=== PATIENT | male | born 1945 | race Caucasian/White ===

== ENCOUNTER 2019-12-12 19:57 | Emergency (ER) | payer MEDICARE, BC, SELFPAY ==
--- NOTE | ~2019-12-12 | CT_ITS ---
EXAMINATION: CT brain wo con DATE: 12/12/2019 20:30 INDICATION: Slurred speech. TIA. TECHNIQUE: Computed tomography (CT) of the head was performed without intravenous contrast. The dose- length product was 681.00 mGy-cm. The mA was adjusted according to patient size. Iterative reconstruc tion technique was employed. COMPARISON: CT dated 01/12/2019 FINDINGS: Stable large CSF density extra-axial fluid collection involving the left frontal, parietal and temporal locations with mass effect. There is unchanged midline shift to the right measuring appr oximately 15 mm. There is a large chronic right lacunar infarction. Basilar cisterns are patent. Para nasal sinuses and mastoids are pneumatized. Mild mucosal thickening of the ethmoid sinuses. No depres sed skull fractures. No acute intracranial hemorrhage, infarction, mass or mass effect. There are sca ttered mild periventricular and subcortical white matter changes, most likely related to small vessel ischemic disease (microangiopathy). IMPRESSION: 1. Stable large left hemispheric CSF density fluid collection, compatible with arachnoid cyst. There is associated mass effect with unchanged midline shift to the right measuring 15 mm. 2: Stable large chronic right lacunar infarction. Reviewed, dictated and finalized at location A.
[2019-12-12 19:57] VITALS: BP 152/85; PULSE 87; RESP 22; TEMP 37.2; O2SAT 96
--- NOTE | 2019-12-12 20:03 | ED.GENADULT ---
HPI - General Adult General Chief complaint: Unspecified Stated complaint: slurred words Source: patient, family and EMS History of Present Illness HPI narrative: 74-year-old male presents via EMS for slurred speech. Per EMS, patient had an episode of slurred speech for a few minutes. He does have a history of stroke in the past, and TIA. states patient was talking to him, and he was having difficulty finding his words and having some slurred speech prior to arrival. At this time, patient is asymptomatic. No chest pain or shortness of breath. No abdominal pain. No nausea or vomiting. Related Data Home Medications Medication Instructions Recorded Confirmed Centrum Silver Men 12/12/19 acetaminophen 325 mg PO ONCE PRN 12/12/19 amlodipine 12/12/19 12/12/19 atorvastatin 12/12/19 clopidogrel 12/12/19 empagliflozin [Jardiance] mg 12/12/19 finasteride mg 12/12/19 hydrocortisone TOPICAL 12/12/19 levetiracetam PO 12/12/19 mirabegron [Myrbetriq] mg PO 12/12/19 solifenacin mg PO 12/12/19 triamcinolone acetonide TOPICAL 12/12/19 Allergies Allergy/AdvReac Type Severity Reaction Status Date / Time nitrofurantoin Allergy Intermediate Nausea and Verified 12/12/19 20:39 Vomiting sulfamethoxazole Allergy Intermediate Nausea and Verified 12/12/19 20:39 Vomiting Review of Systems Review of Systems: Narrative: CONSTITUTIONAL: Denies fever, chills, or sweats. EYES: Denies visual changes, redness, or discharge. ENT: Denies rhinorrhea, congestion, sore throat, or otalgia. CARDIOVASCULAR: Denies chest pain, palpitations, or edema. RESPIRATORY: Denies cough or dyspnea. GASTROINTESTINAL: Denies abdominal pain, nausea, vomiting, or diarrhea. GENITOURINARY: Denies dysuria or hematuria. SKIN: Denies rash or itching. MUSCULOSKELETAL: Denies back pain, joint pain, or myalgia. NEUROLOGIC: Slurred speech, chronic left-sided weakness PSYCHIATRIC: Denies anxiety or depression. Exam Narrative: Exam Narrative: GENERAL: Well-appearing, well-nourished, and in no acute distress. HEAD: Normocephalic, atraumatic. EYES: PERRLA and EOMI. ENT: Nares clear, no rhinorrhea or epistaxis. Mucous membranes moist. NECK: Supple. CHEST: Clear to auscultation. No respiratory distress. HEART: Regular rate and rhythm. No murmur heard. Normal peripheral pulses. ABDOMEN: Soft, nontender, nondistended, normal active bowel sounds. EXTREMITIES: Normal range of motion. No edema. SKIN: Warm, dry, no rash. NEURO: Chronic left-sided weakness PSYCH: Normal mood and affect. Course Reevaluation(s) Reevaluation #1: 2103 -reevaluated patient, no new complaints. Vital Signs Vital signs: Vital Signs Temperature 37.2 C 12/12/19 19:57 Pulse Rate 87 12/12/19 19:57 Respiratory Rate 22 H 12/12/19 19:57 Blood Pressure 152/85 H 12/12/19 19:57 Pulse Oximetry 96 12/12/19 19:57 Temperature 37.2 C 12/12/19 19:57 Pulse Rate 78 12/12/19 21:23 Respiratory Rate 19 12/12/19 21:23 Blood Pressure 162/88 H 12/12/19 21:23 Pulse Oximetry 95 12/12/19 21:23 Medical Decision Making MDM Narrative Medical decision making narrative: CT scan showed no new changes. Patient likely had a TIA. Family states he is on Plavix already. Counseled patient to follow-up with his medical provider within 1 week. Return to emergency department at any time if he has any signs of stroke, or other concerns. Medical Records Medical records reviewed: Yes I reviewed the patient's medical records. Vital Signs Vital Signs: Vital Signs Temperature 37.2 C 12/12/19 19:57 Pulse Rate 87 12/12/19 19:57 Respiratory Rate 22 H 12/12/19 19:57 Blood Pressure 152/85 H 12/12/19 19:57 Pulse Oximetry 96 12/12/19 19:57 Temperature 37.2 C 12/12/19 19:57 Pulse Rate 78 12/12/19 21:23 Respiratory Rate 19 12/12/19 21:23 Blood Pressure 162/88 H 12/12/19 21:23 Pulse Oximetry 95 12/12/19 21:23 Lab Data Lab results reviewed: Yes I rev
--- NOTE | 2019-12-12 20:07 | ECG_ITS ---
Measurements Intervals [place] Rate: 84 P: 65 [place]: 170 QRS: 43 QRSD: 83 T: 43 QT: 359 QTc: 427 Interpretive Statements SINUS RHYTHM BASELINE ARTIFACT- I NORMAL ECG Electronically Signed On 12-13-2019 7:19:57 CDT by Ronni Serrato D.O.
[2019-12-12 20:52] LABS: Basophils Absolute Auto 0.1 K/mm3 (0.0-0.1); Basophils Percent Auto 0.9 % (0.2-1.2); Eosinophils Absolute Auto 0.2 K/mm3 (0-0.3); Eosinophils Percent Auto 2.4 % (0-4.4); Hematocrit 48.1 % (42.0-52.0); Hemoglobin 15.8 g/dL (14.0-18.0); Immature Granulocyte Absolute 0.02 K/mm3 (0.00-0.031); Immature Granulocyte Percent A 0.2 % (0-0.5); Lymphocytes Absolute Auto 1.85 K/mm3 (0.9-3.2); Lymphocytes Percent Auto 21.5 % (18.3-44.2); Mean Corpuscular HGB Conc 32.8 g/dl (32-36); Mean Corpuscular Hemoglobin 29.4 pg (26-34); Mean Corpuscular Volume 89.4 fl (80-100); Mean Platelet Volume 9.1 fl (7.4-10.4); Monocytes Absolute Auto 0.6 K/mm3 (0.1-0.6); Neutrophils Absolute Auto 5.9 K/mm3 (1.3-6.7); Platelet Count Result 296 k/mm3 (150-375); Red Blood Count 5.38 M/mm3 (4.6-6.20); Red Cell Distribution Width 12.7 % (11.5-14.5); White Blood Count 8.6 K/mm3 (4.5-10.0)
[2019-12-12 20:54] LABS: Alanine Aminotransferase 29 U/L (4-50); Albumin Level 4.2 g/dL (3.5-5.1); Alkaline Phosphatase 121 U/L (38-126); Anion Gap 8 mmol/L (8-16); Aspartate Amino Transferase 29 U/L (17-59); Bilirubin,Total 0.7 mg/dL (0.2-1.3); Blood Urea Nitrogen 20 mg/dL (9-20); Calcium 9.3 mg/dL (8.4-10.2); Carbon Dioxide 27 mmol/L (22-30); Chloride 102 mmol/L (98-107); Estimated CRCL calculation 68 ml/min; Estimated Glomerular Filt Rate > 60; Glucose 162 mg/dL (75-110); Potassium 4.2 mmol/L (3.4-5.0); Sodium 137 mmol/L (137-145)
[2019-12-12 20:56] LABS: Prothrombin Time 12.6 Seconds (11.1-14.7)
[2019-12-12 21:23] VITALS: BP 162/88; PULSE 78; RESP 19; O2SAT 95
== END 2019-12-12 21:24 | disposition home or self-care (01) ==
PROVIDERS: Emergency Provider Emergency Medicine
DX: G45.9 Transient cerebral ischemic attack, unspecified (principal); Z79.01 Long term (current) use of anticoagulants
CPT/HCPCS: 36415; 70450; 80053; 85025; 85610; 93005; 99284

== ENCOUNTER 2021-06-16 17:57 | Observation (INO) | payer MEDICARE, BC, SELFPAY ==
--- NOTE | ~2021-06-16 | CT_ITS ---
EXAMINATION: CT brain wo con DATE: 06/16/2021 18:13 INDICATION: Left-sided weakness, paresis today TECHNIQUE: Computed tomography (CT) of the head was performed without intravenous contrast. The mA wa s adjusted according to patient size. Iterative reconstruction technique was employed. Exam dose: 68 1.00 mGy-cm total exam DLP. COMPARISON: June 04, 2018 CT brain June 05, 2018 MRI brain/brainstem 12/12/2019 CT brain FINDINGS: Prominent extracranial CSF density accumulation in the left frontal temporal parietal area is again noted, stable since prior examinations. There is associated prominent rightward shift of the midline structures. Prominent chronic infarcts in the right basal ganglia, internal capsule, insular areas. There is cerebral atherosclerosis. Chronic small vessel ischemic changes of the cerebral white matter . No intracranial hemorrhage or interval cerebrovascular accident or new mass effect or new extra-axial fluid collection is evident. No fracture or bone destruction of the cranial vault. Paranasal sinuses and mastoid air cells are unr emarkable. IMPRESSION: No acute intracranial finding or significant change since 12/12/2019 Reviewed, dictated and finalized at Location [facility]. Reviewed, dictated and finalized at location A. TABLE THINNER IMPRESSION: No acute intracranial finding or significant change since 0
--- NOTE | ~2021-06-16 | XR_ITS ---
XR chest 1V portable DATE: 06/16/2021 19:16 INDICATION: Shortness of breath, weakness TECHNIQUE: Portable AP chest on 06/16/2021 at 1916 hours COMPARISON: 01/12/2019, 03/2017, 06/23/2016 chest radiographs FINDINGS: There is mild rightward shift of heart and mediastinum, chronic. Normal heart size. Aortic arch calcification. No pulmonary infiltrate or consolidation, pleural effusion or pulmonary vascular congestion or pneumo thorax is detected. Diffuse osteopenia. IMPRESSION: No active cardiopulmonary disease Reviewed, dictated and finalized at location A. [employer]
--- NOTE | 2021-06-16 18:07 | ECG_ITS ---
Measurements Intervals [place] Rate: 84 P: 63 [place]: 179 QRS: 58 QRSD: 103 T: 46 QT: 355 QTc: 421 Interpretive Statements SINUS RHYTHM NORMAL EKG COMPARED TO ECG 12/12/2019 20:01:23 NO SIGNIFICANT CHANGES Electronically Signed On 06-17-2021 8:57:29 [employer] by Cholo Davenport M.D.
[2021-06-16 18:15] LABS: Basophils Absolute Auto 0.07 K/mm3 (0.00-0.10); Basophils Percent Auto 0.8 % (0.0-1.0); Eosinophils Absolute Auto 0.32 K/mm3 (0.02-0.50); Eosinophils Percent Auto 3.6 % (1.0-6.0); Hematocrit 50.3 % (37.0-46.0); Hemoglobin 16.6 g/dL (12.4-15.3); Immature Granulocyte Absolute 0.02 K/mm3 (0.00-0.00); Immature Granulocyte Percent A 0.2 % (0.0-0.0); Lymphocytes Absolute Auto 2.04 K/mm3 (1.10-4.50); Lymphocytes Percent Auto 23.1 % (18.0-42.0); Mean Corpuscular Hemoglobin 29.9 pg (27.0-31.0); Mean Corpuscular Volume 90.6 fL (78.0-102.0); Mean Platelet Volume 8.9 fl (8.7-11.0); Monocytes Absolute Auto 0.59 K/mm3 (0.10-0.90); Monocytes Percent Auto 6.7 % (2.0-11.0); Neutrophils Absolute Auto 5.8 K/mm3 (1.7-7.2); Neutrophils Percent Auto 65.6 % (50.0-70.0); Platelet Count Result 243 K/mm3 (150-420); Red Blood Count 5.55 M/mm3 (4.70-6.10); Red Cell Distribution Width 12.7 % (11.6-14.4); White Blood Count 8.8 K/mm3 (4.8-10.8)
[2021-06-16 18:24] LABS: Partial Thromboplastin Time 26.9 SEC (23.90-30.70); Prothrombin Time 10.6 Seconds (9.50-12.10)
[2021-06-16 18:29] VITALS: BP 151/90; BP 152/85; PULSE 84; PULSE 85; RESP 20; TEMP 36.8; O2SAT 94
[2021-06-16 18:31] LABS: Alanine Aminotransferase 26 U/L (16-63); Albumin Level 3.6 g/dL (3.4-5.0); Alkaline Phosphatase 133 U/L (46-116); Anion Gap 12 mmol/L (8-16); Aspartate Amino Transferase 13 U/L (15-37); Bilirubin,Total 0.7 mg/dL (0.00-1.00); Blood Urea Nitrogen 20 mg/dL (7-18); Calcium 8.9 mg/dL (8.5-10.1); Carbon Dioxide 24 mmol/L (21-32); Chloride 102 mmol/L (98-108); Estimated Glomerular Filt Rate > 60; Ethanol < 3 mg/dL (0-6); Glucose 168 mg/dL (70-99); Osmolality Calculated 292 mOsm/kg (285-295); Potassium 3.8 mmol/L (3.5-5.1); Sodium 138 mmol/L (136-145); Total Protein 7.2 g/dL (6.4-8.2); Troponin I 9.4 ng/L (0.00-60.4)
[2021-06-16 18:34] LABS: Lactic Acid Reflex 1.8 mmol/L (0.4-2.0)
[2021-06-16] MEDS: SODIUM CHLORIDE 0.9% IV 500 ML 999 ML IV CONT (18:52)
--- NOTE | 2021-06-16 18:55 | ED.AMS ---
HPI - Altered Mental Status General Chief Complaint: Altered Mental Status <Elsie Coombs MD - Last Filed: 06/16/21 20:09> Stated Complaint: AMB <Elsie Coombs MD - Last Filed: 06/16/21 20:09> Time Seen by Provider: 06/16/21 17:59 <Elsie Coombs MD - Last Filed: 06/16/21 20:09> Source: patient, family, EMS and RN notes reviewed <Elsie Coombs MD - Last Filed: 06/16/21 20:09> Mode of arrival: EMS <Elsie Coombs MD - Last Filed: 06/16/21 20:09> Limitations: no limitations <Elsie Coombs MD - Last Filed: 06/16/21 20:09> History of Present Illness complaint: confusion and other (pt was drooling) <Elsie Coombs MD - Last Filed: 06/16/21 20:09> Onset (ago): hour(s) (1) <Elsie Coombs MD - Last Filed: 06/16/21 20:09> Timing confirmed by: spouse <Elsie Coombs MD - Last Filed: 06/16/21 20:09> Severity: moderate <Elsie Coombs MD - Last Filed: 06/16/21 20:09> Consistency of symptoms: waxing and waning <Elsie Coombs MD - Last Filed: 06/16/21 20:09> Context: other (prior CVA) <Elsie Coombs MD - Last Filed: 06/16/21 20:09> Associated symptoms: denies other symptoms <Elsie Coombs MD - Last Filed: 06/16/21 20:09> Treatments prior to arrival: oxygen <Elsie Coombs MD - Last Filed: 06/16/21 20:09> Related Data Home Medications: Home Medications Medication Instructions Recorded Confirmed Centrum Silver Men 1 tab-cap PO DAILY 12/12/19 06/16/21 acetaminophen 325 mg PO Q6H PRN 12/12/19 06/16/21 amlodipine [Norvasc] 5 mg PO DAILY 12/12/19 06/16/21 atorvastatin 40 mg PO DAILY 12/12/19 06/16/21 clopidogrel 75 mg PO DAILY 12/12/19 06/16/21 empagliflozin [Jardiance] 25 mg PO DAILY 12/12/19 06/16/21 finasteride 5 mg PO DAILY 12/12/19 06/16/21 hydrocortisone 1 applic TOPICAL HS 12/12/19 06/16/21 levetiracetam 500 mg PO BID 12/12/19 06/16/21 mirabegron [Myrbetriq] 50 mg PO DAILY 12/12/19 06/16/21 solifenacin 5 mg PO DAILY 12/12/19 06/16/21 docusate sodium 100 mg PO DAILY 06/16/21 06/16/21 metoclopramide HCl [Reglan] 5 mg PO DAILY PRN 06/16/21 06/16/21 <Elsie Coombs MD - Last Filed: 06/16/21 20:09> Allergies/Adverse Reactions: Allergies Allergy/AdvReac Type Severity Reaction Status Date / Time nitrofurantoin Allergy Intermediate Nausea and Verified 06/16/21 18:38 Vomiting sulfamethoxazole Allergy Intermediate Nausea and Verified 06/16/21 18:38 Vomiting <Elsie Coombs MD - Last Filed: 06/16/21 20:09> Review of Systems Review of Systems: All systems reviewed & are unremarkable except as noted in HPI and below <Elsie Coombs MD - Last Filed: 06/16/21 20:09> PMFSH Past Medical History Medical History: Medical History Transient ischemic attack (TIA) <Elsie Coombs MD - Last Filed: 06/16/21 20:09> Exam Const: General: no acute distress, alert and confusion <Elsie Coombs MD - Last Filed: 06/16/21 20:09> Nutritional Appearance: well nourished <Elsie Coombs MD - Last Filed: 06/16/21 20:09> HENMT: Ears: external ears normal, TM's normal bilaterally and EAC's normal <Elsie Coombs MD - Last Filed: 06/16/21 20:09> General nose exam: Normal external nose present and Normal nares present <Elsie Coombs MD - Last Filed: 06/16/21 20:09> Face and sinus: normal facial exam and sinuses nontender <Elsie Coombs MD - Last Filed: 06/16/21 20:09> Mouth: Yes moist mucous membranes <Elsie Coombs MD - Last Filed: 06/16/21 20:09> Other: mild hearing impairment <Elsie Coombs MD - Last Filed: 06/16/21 20:09> Eyes: Conjunctivae: conjunctivae normal <Elsie Coombs MD - Last Filed: 06/16/21 20:09> Pupils: Equal, round and reactive pupils present <Elsie Coombs MD - Last Filed: 06/16/21 20:09> EOM: EOMs intact bilaterally <Elsie Morejon
[2021-06-16 19:09] LABS: Appearance Urine Cloudy (Clear); Bilirubin Urine Negative (Negative); Blood Urine 2+ (Negative); Glucose Urine UA 3+ (Negative); Ketones Urine Negative (Negative); Leukocyte Esterase Ur 1+ (Negative); Nitrate Urine Positive (Negative); Protein Urine Negative (Negative); Urobilinogen Urine 0.2 mg/dL (0.2-1.0)
[2021-06-16 19:15] LABS: Add Urine Microscopic? YES; Bacteria Urine 2+ /hpf; Color Urine Dark Yellow (Yellow); WBC Urine >75 /hpf (0-3)
[2021-06-16 19:16] LABS: Amphetamine Screen Urine Negative (Negative); Barbiturate Screen Urine Negative (Negative); Benzodiazepines Screen Urine Negative (Negative); Cannabinoid Screen Urine Negative (Negative); Cocaine Screen Urine Negative (Negative); Methadone Screen Urine Negative (Negative); Opiate Screen Urine Negative (Negative); Phencyclidine Screen Urine Negative (Negative)
--- NOTE | 2021-06-16 19:49 | PC.NURSE ---
Rapid covid performed per 2nd floor request
[2021-06-16 20:05] LABS: NT Pro B Type Natriuretic Pept 31 pg/mL (0-450)
[2021-06-16 20:11] LABS: SARS-CoV-2 Ag Negative (Negative)
--- NOTE | 2021-06-16 20:50 | ADMGEN ---
This patient, Jesus Soto, was admitted to 2nd Floor Room 204-2. Patient/family oriented to hospital policies and general routines including ID bracelet, bed and alarms, pain management, procedures, bathroom and other care routines, personal items, smoking policy, room service/diet, and visiting hours. Information on how to activate the Rapid Response Team has been discussed. Patient/Family are encouraged to report perceived risks to care and to ask questions if they do not understand what they are told or what they should do.
--- NOTE | 2021-06-16 20:54 | PC.NURSE ---
Pt went up with bolus in progress
[2021-06-16 20:55] VITALS: PULSE 82; RESP 20; O2SAT 94
[2021-06-16] MEDS: levETIRAcetam 500 MG TABLET PO (22:39)
[2021-06-16] MEDS: MELATONIN 5 MG TABLET PO (22:39)
[2021-06-16] MEDS: SODIUM CHLORIDE 0.9% IV 1,000 ML 100 ML IV CONT (22:40)
[2021-06-16 23:05] VITALS: BMI 23.9
[2021-06-16 23:20] VITALS: BP 148/88; PULSE 82; RESP 20; TEMP 36.5; O2SAT 94
[2021-06-17] VITALS: BP 130/72; PULSE 83; RESP 18; TEMP 36.5; O2SAT 95
[2021-06-17 05:27] LABS: Hematocrit 48.1 % (37.0-46.0); Hemoglobin 15.8 g/dL (12.4-15.3); Mean Corpuscular HGB Conc 32.8 g/dL (32.0-36.0); Mean Corpuscular Hemoglobin 29.9 pg (27.0-31.0); Mean Corpuscular Volume 90.9 fL (78.0-102.0); Mean Platelet Volume 9.1 fl (8.7-11.0); Platelet Count Result 239 K/mm3 (150-420); Red Blood Count 5.29 M/mm3 (4.70-6.10); Red Cell Distribution Width 12.7 % (11.6-14.4); White Blood Count 7.7 K/mm3 (4.8-10.8)
[2021-06-17 05:43] LABS: Alanine Aminotransferase 25 U/L (16-63); Albumin Level 3.4 g/dL (3.4-5.0); Alkaline Phosphatase 126 U/L (46-116); Anion Gap 8 mmol/L (8-16); Aspartate Amino Transferase 15 U/L (15-37); Bilirubin,Total 0.8 mg/dL (0.00-1.00); Blood Urea Nitrogen 17 mg/dL (7-18); Calcium 8.7 mg/dL (8.5-10.1); Carbon Dioxide 26 mmol/L (21-32); Chloride 105 mmol/L (98-108); Estimated CRCL calculation 67 ml/min; Estimated Glomerular Filt Rate > 60; Glucose 124 mg/dL (70-99); Magnesium 2.4 mg/dL (1.8-2.4); Osmolality Calculated 290 mOsm/kg (285-295); Potassium 3.8 mmol/L (3.5-5.1); Sodium 139 mmol/L (136-145); Total Protein 6.8 g/dL (6.4-8.2)
[2021-06-17 07:49] VITALS: BP 135/76; PULSE 75; RESP 18; TEMP 36.6; O2SAT 95
[2021-06-17] MEDS: SOLIFENACIN 5 MG TABLET PO (08:47)
[2021-06-17] MEDS: MIRABEGRON 25 MG ER TABLET 50 MG PO (08:48)
[2021-06-17] MEDS: DOCUSATE SODIUM 100 MG CAPSULE PO (08:48)
[2021-06-17] MEDS: ATORVASTATIN 40 MG TABLET PO (08:48)
[2021-06-17] MEDS: levETIRAcetam 500 MG TABLET PO (08:48)
[2021-06-17] MEDS: FINASTERIDE 5 MG TABLET PO (08:48)
[2021-06-17] MEDS: ENOXAPARIN 40 MG/0.4 ML SYRINGE SUB-Q (08:49)
[2021-06-17] MEDS: amLODIPine BESYLATE 5 MG TABLET PO (08:49)
[2021-06-17] MEDS: CLOPIDOGREL BISULFATE 75 MG TABLET PO (08:49)
--- NOTE | 2021-06-17 10:51 | PM.SD2 ---
Same Day Admit/Disch: [facility] History of Present Illness Chief complaint: TIA Narrative: Patient presented to the emergency room was confused according to notes dated showed that he was drooling. As reading notes it states that patient returned to status quo. I am assuming that patient became alert and oriented was talking. In the emergency room patient was found to have a urinary tract infection WBCs was normal, sodium was normal, potassium was normal, urine was cloudy 2+ protein, 2+ ketones, 2+ bacteria, and blood was noted. Patient was afebrile was started on some IV antibiotics and was placed on the floor for 24-hour observation [facility] Past Medical History Medical History Transient ischemic attack (TIA) Social History Social History Years smoked: 4 Smoking status: Former smoker Tobacco type: cigarettes and pipe Second hand tobacco smoke exposure: No Alcohol intake: current Drinks per week: 1 Substance use: never Substance use type: does not use Spiritual care concerns: No Same Day Admit/Disch: Med Pre-admit Medications Home Medications Medication Instructions Recorded Confirmed Type Centrum Silver Men 1 tab-cap PO DAILY 12/12/19 06/16/21 History acetaminophen 325 mg PO Q6H PRN 12/12/19 06/16/21 History amlodipine [Norvasc] 5 mg PO DAILY 12/12/19 06/16/21 History atorvastatin 40 mg PO DAILY 12/12/19 06/16/21 History clopidogrel 75 mg PO DAILY 12/12/19 06/16/21 History empagliflozin [Jardiance] 25 mg PO DAILY 12/12/19 06/16/21 History finasteride 5 mg PO DAILY 12/12/19 06/16/21 History hydrocortisone 1 applic TOPICAL HS 12/12/19 06/16/21 History levetiracetam 500 mg PO BID 12/12/19 06/16/21 History mirabegron [Myrbetriq] 50 mg PO DAILY 12/12/19 06/16/21 History solifenacin 5 mg PO DAILY 12/12/19 06/16/21 History docusate sodium 100 mg PO DAILY 06/16/21 06/16/21 History metoclopramide HCl [Reglan] 5 mg PO DAILY PRN 06/16/21 06/16/21 History cephalexin 500 mg PO Q12H #20 cap 06/17/21 Rx Exam Narrative: GENERAL:Well-appearing, well-nourished, and in no acute distress. HEAD:Normocephalic, atraumatic. EYES: PERRLA and EOMI. ENT: Nares clear, no rhinorrhea or epistaxis. Mucous membranes moist. NECK: Supple. CHEST: Clear to auscultation. No respiratory distress. HEART: Regular rate and rhythm. Normal peripheral pulses. ABDOMEN: Soft, nontender, nondistended, normal active bowel sounds. EXTREMITIES: decreased range of motion on the left side of body. No edema. SKIN: Warm, dry, no rash. NEURO: No focal deficits. Alert and oriented x3. delayed conversation at times. DS: Data Data Completed and Pending Labs on day of discharge: Labs from last 24 hours 06/17/21 06/17/21 06/16/21 04:52 04:52 19:42 WBC 7.7 RBC 5.29 Hgb 15.8 H Hct 48.1 H MCV 90.9 MCH 29.9 MCHC 32.8 RDW 12.7 Plt Count 239 MPV 9.1 Immature Gran % (Auto) Neut % (Auto) Lymph % (Auto) [place] % (Auto) Eos % (Auto) Baso % (Auto) Lymph # (Auto) [place] # (Auto) Eos # (Auto) Baso # (Auto) Abs Immat Gran (auto) Absolute Neuts (auto) Absolute Nucleated RBC Nucleated RBC % PT INR APTT Sodium 139 Potassium 3.8 Chloride 105 Carbon Dioxide 26 Anion Gap 8 BUN 17 Creatinine 0.89 Estim Creat Clear Calc 67 Estimated GFR > 60 Glucose 124 H Calculated Osmolality 290 Lactic Acid Calcium 8.7 Magnesium 2.4 Total Bilirubin 0.8 AST 15 ALT 25 Alkaline Phosphatase 126 H Troponin I NT-Pro-B Natriuret Pep Total Protein 6.8 Albumin 3.4 Urine Color Urine Appearance Urine pH Ur Specific [place] Urine Protein Urine Glucose (UA) Urine Ketones Ur Blood (Man) Urine Nitrate Urine Bilirubin Urine Urobilinogen Ur Leukocyte Esterase Urine RBC Uri
--- NOTE | 2021-06-17 11:24 | PC.NURSE ---
IV site discontinued. Discharge instructions reviewed with patient and , instructed to follow up with PCP and neurology. brought clean clothes to dress patient.
--- NOTE | 2021-06-17 11:40 | PC.NURSE ---
Patients assisted him to dress, transferred to wheelchair and transported out to vehicle.
--- NOTE | 2021-06-18 10:27 | PC.NURSE ---
discharge call back completed, instructions reviewed on dc and understood all information, no questions or comments regarding care.
== END 2021-06-17 11:40 | disposition home or self-care (01) ==
LOC: CHSED 18:59 → CHS2ND 20:29
PROVIDERS: Nurse Practitioner; Admitting Provider Internal Medicine; Emergency Provider Emergency Medicine; Visit Provider Internal Medicine
DX: N39.0 Urinary tract infection, site not specified (principal); I69.354 Hemiplegia and hemiparesis following cerebral infarction affecting left non-dominant side; I10 Essential (primary) hypertension; E78.5 Hyperlipidemia, unspecified; K21.9 Gastro-esophageal reflux disease without esophagitis; Z20.822 Contact with and (suspected) exposure to COVID-19; Z87.891 Personal history of nicotine dependence; Z79.899 Other long term (current) drug therapy
CPT/HCPCS: 36415; 70450; 71045; 80053; 80307; 81001; 83605; 83735; 83880; 84484; 85025; 85027; 85610; 85730; 87077; 87086; 87088; 87186; 87426; 93005; 96360; 96361; 96365; 96367; 96372; 97161; 97165; 99285; A9270; C9803; G0378; J0456; J0696; J1650; J7030; J7040

== ENCOUNTER 2021-12-31 18:15 | Observation (INO) | payer MEDICARE, BC, SELFPAY ==
--- NOTE | ~2021-12-31 | XR_ITS ---
EXAMINATION: XR chest 1V portable DATE: 12/31/2021 20:07 INDICATION: Cough and weakness and nausea and vomiting. TECHNIQUE: A single frontal view of the chest was obtained. COMPARISON: Chest single view 06/16/2021 FINDINGS: Calcified bilateral lung nodules and calcified hilar lymph nodes are consistent with old gr anulomatous disease. No pleural effusion or pneumothorax. The heart size is normal. IMPRESSION: 1. No acute cardiopulmonary disease. Reviewed, dictated and finalized at location A.
[2021-12-31 18:39] VITALS: BP 143/90; PULSE 112; RESP 20; TEMP 36.7; O2SAT 97
--- NOTE | 2021-12-31 18:43 | ECG_ITS ---
Measurements Intervals [place] Rate: 98 P: 67 [place]: 166 QRS: 55 QRSD: 81 T: 38 QT: 334 QTc: 427 Interpretive Statements SINUS RHYTHM BASELINE ARTIFACT- I, II, III, AVR, AVL, AVF, V1-V6 NORMAL ECG COMPARED TO ECG 06/16/2021 18:18:50 NO SIGNIFICANT CHANGES Electronically Signed On 12-31-2021 21:44:23 CDT by Ronni Serrato D.O.
[2021-12-31 19:06] LABS: Basophils Absolute Auto 0.07 K/mm3 (0.00-0.10); Eosinophils Absolute Auto 0.13 K/mm3 (0.02-0.50); Eosinophils Percent Auto 1.9 % (1.0-6.0); Hematocrit 46.4 % (37.0-46.0); Hemoglobin 14.6 g/dL (12.4-15.3); Immature Granulocyte Absolute 0.01 K/mm3 (0.00-0.00); Immature Granulocyte Percent A 0.1 % (0.0-0.0); Lymphocytes Absolute Auto 1.68 K/mm3 (1.10-4.50); Lymphocytes Percent Auto 24.9 % (18.0-42.0); Mean Corpuscular HGB Conc 31.5 g/dL (32.0-36.0); Mean Corpuscular Volume 92.2 fL (78.0-102.0); Monocytes Absolute Auto 0.71 K/mm3 (0.10-0.90); Monocytes Percent Auto 10.5 % (2.0-11.0); Neutrophils Absolute Auto 4.2 K/mm3 (1.7-7.2); Neutrophils Percent Auto 61.6 % (50.0-70.0); Platelet Count Result 320 K/mm3 (150-420); Red Blood Count 5.03 M/mm3 (4.70-6.10); Red Cell Distribution Width 13.9 % (11.6-14.4); White Blood Count 6.8 K/mm3 (4.8-10.8)
[2021-12-31] MEDS: SODIUM CHLORIDE 0.9% IV 1,000 ML 999 ML IV CONT (19:12)
[2021-12-31] MEDS: ONDANSETRON INJ 4 MG/2 ML VIAL IV PUSH (19:12)
[2021-12-31 19:30] LABS: Alanine Aminotransferase 17 U/L (16-63); Albumin Level 3.4 g/dL (3.4-5.0); Alkaline Phosphatase 151 U/L (46-116); Anion Gap 8 mmol/L (8-16); Aspartate Amino Transferase 11 U/L (15-37); Bilirubin,Total 0.9 mg/dL (0.00-1.00); Blood Urea Nitrogen 16 mg/dL (7-18); Calcium 10.7 mg/dL (8.5-10.1); Carbon Dioxide 32 mmol/L (21-32); Chloride 96 mmol/L (98-108); Estimated CRCL calculation 40 ml/min; Estimated Glomerular Filt Rate 46; Glucose 166 mg/dL (70-99); Lipase 55 U/L (73-393); NT Pro B Type Natriuretic Pept 96 pg/mL (0-450); Osmolality Calculated 287 mOsm/kg (285-295); Sodium 136 mmol/L (136-145); Total Protein 8.3 g/dL (6.4-8.2)
[2021-12-31 19:43] LABS: CRP 10.8 mg/dL (0.0-0.9)
[2021-12-31 20:01] LABS: Add Urine Microscopic? YES; Appearance Urine Clear (Clear); Bilirubin Urine Negative (Negative); Blood Urine 1+ (Negative); Color Urine Brown (Yellow); Glucose Urine UA 3+ (Negative); Ketones Urine Trace (Negative); Leukocyte Esterase Ur 2+ (Negative); Nitrate Urine Negative (Negative); Protein Urine 2+ (Negative); Urobilinogen Urine 0.2 mg/dL (0.2-1.0); pH Urine 6.5 (5.0-8.0)
[2021-12-31] MEDS: METOCLOPRAMIDE HCL 10 MG TABLET PO (20:04)
[2021-12-31 20:10] LABS: Bacteria Urine 2+ /hpf; Squamous Epithelial Cell Urine None seen /hpf (Few); WBC Urine >75 /hpf (0-3)
[2021-12-31 20:11] LABS: Budding Yeast Urine Present /hpf
--- NOTE | 2021-12-31 20:13 | ED.NAVMDI ---
HPI - Nausea/Vomiting/Diarrhea General Chief complaint: Nausea/Vomiting/Diarrhea Stated complaint: vomiting, medication reaction Time Seen by Provider: 12/31/21 18:19 Source: patient and family Mode of arrival: ambulatory Limitations: no limitations History of Present Illness HPI Narrative: This is a 76-year-old gentleman that presents with his after he started Trulicity for his diabetes this past Rima had been started having nausea and vomiting, MD elicited complaint: nausea and vomiting Onset (ago): day(s) Description of diarrhea: mucus and watery Associated abdominal pain: No Location of pain: none Related Data Home Medications Medication Instructions Recorded Confirmed Centrum Silver Men 1 tab-cap PO DAILY 12/12/19 12/31/21 acetaminophen 325 mg tablet 325 mg PO Q6H PRN Pain 12/12/19 12/31/21 amlodipine 5 mg tablet (Norvasc) 5 mg PO DAILY 12/12/19 12/31/21 atorvastatin 40 mg tablet 40 mg PO DAILY 12/12/19 12/31/21 clopidogrel 75 mg tablet 75 mg PO DAILY 12/12/19 12/31/21 empagliflozin 10 mg tablet 25 mg PO DAILY 12/12/19 12/31/21 (Jardiance) finasteride 5 mg tablet 5 mg PO DAILY 12/12/19 12/31/21 hydrocortisone 2.5 % lotion 1 applic topical HS 12/12/19 12/31/21 levetiracetam 500 mg tablet 500 mg PO BID 12/12/19 12/31/21 docusate sodium 100 mg tablet 100 mg PO 2XW 06/16/21 12/31/21 ketoconazole 2 % topical cream 1 applic topical DAILY 12/31/21 12/31/21 lisinopril 10 mg tablet 10 mg PO DAILY 12/31/21 12/31/21 venlafaxine 150 mg 150 mg PO DAILY 12/31/21 12/31/21 capsule,extended release 24 hr Allergies Allergy/AdvReac Type Severity Reaction Status Date / Time nitrofurantoin Allergy Intermediate Nausea and Verified 12/31/21 19:09 Vomiting sulfamethoxazole Allergy Intermediate Nausea and Verified 12/31/21 19:09 Vomiting Review of Systems Review of Systems: All systems reviewed & are unremarkable except as noted in HPI and below PMFSH Past Medical History Medical History Transient ischemic attack (TIA) Social History Social History Years smoked: 4 Smoking status: Former smoker Tobacco type: cigarettes and pipe Second hand tobacco smoke exposure: No Alcohol intake: current Drinks per week: 1 Substance use: never Substance use type: does not use Spiritual care concerns: No Exam Eyes: Conjunctivae: conjunctivae normal Pupils: Equal, round and reactive pupils present EOM: EOMs intact bilaterally Neck: Neck: normal visual inspection, no lymphadenopathy and no meningeal signs Chest: Chest palpation & inspection: normal inspection of the chest Resp: Effort & Inspection: normal respiratory effort Auscultation: clear to auscultation bilaterally Cardio: Rate: tachycardic Rhythm: regular rhythm GI: GI Palp: Yes Soft to palpation Urinary Catheter: Urinary Catheter: patent and draining Back/Spine/Pelvis: Back: no CVA tenderness Skin: General skin exam: normal color Rashes: no rashes Wounds: no wounds Neuro: General: patient oriented x3 Cranial nerves: Yes Nystagmus not present Speech: Abnormal speech present Extrem: General: normal to inspection and no clubbing, cyanosis or edema Psych: Mental Status: mental status grossly normal Affect: normal affect Attitude: cooperative Course Course Emergency Course: patient with a history of BPH and some bladder dysfunction secondary to his CVA, wears a diaper and a UA performed shows that he has a urinary tract infection, labs reviewed with patient and family patient has an elevated creatinine, back in June is creatinine was 0.86 and currently creatinine is 1.46, patient received IV fluids initially received Zofran for his nausea and vomiting, apparently after reassessing the patient Zofran did not seem to help as much and a dose of Reglan was given. Chest x-ray reviewed with patient and family. Vital Signs
[2021-12-31 21:18] VITALS: BP 152/80; PULSE 77; RESP 18; O2SAT 97
--- NOTE | 2021-12-31 21:37 | PC.NURSE ---
PT to room 208, floor has no questions. transported by [employer] [place]
[2021-12-31 21:49] VITALS: BMI 22.4
[2021-12-31 21:50] VITALS: BP 155/79; PULSE 106; RESP 19; TEMP 36.8; O2SAT 97
--- NOTE | 2021-12-31 21:58 | ADMGEN ---
This patient, Jesus Soto, was admitted to 2nd Floor Room 208-1. Patient oriented to hospital policies and general routines including ID bracelet, bed and alarms, visiting hours, pain management, procedures, bathroom and other care routines, personal items, smoking policy, room service/diet, and visiting hours. Information on how to activate the Rapid Response Team has been discussed. Patient are encouraged to report perceived risks to care and to ask questions if they do not understand what they are told or what they should do.
[2021-12-31] MEDS: SODIUM CHLORIDE 0.9% IV 1,000 ML 100 ML IV CONT (22:10)
[2021-12-31 22:33] LABS: Glucose Point of Care 119 mg/dl (65-105)
--- NOTE | 2021-12-31 22:40 | PC.NURSE ---
During pt admission; Cristian stated he wishes he would go to sleep and not wake up, but has no current plans to harm himself and stated I'm not gonna do it. This RN asked if the pt's was aware of these feelings to which the pt replied yes. Pt educated on what being on telemetry entailed, and what to expect on frequency of vitals and why intervention was being done. Pt verbalized understanding, but this RN feels further education may be required. Pt instructed on how to use the call light and to notify nurses station if was incontinent, vomited, or had any other needs. Pt verbalized understanding. Call light w/in reach; side railsx3; bed in lowest position; and night light on for pt safety.
[2021-12-31 23:02] VITALS: PULSE 105
[2021-12-31 23:11] VITALS: BP 128/77; PULSE 105; RESP 18; TEMP 36.6; O2SAT 95
[2022-01-01 03:36] VITALS: PULSE 102
[2022-01-01 04:00] VITALS: BP 132/57; PULSE 97; RESP 21; TEMP 36.9; O2SAT 95
--- NOTE | 2022-01-01 05:01 | PC.NURSE ---
Pt had incontinent void. Pt's gown, depend, shorts, and bed pad removed. Pt's janes-area cleaned w/hygiene wipe then a clean depend placed on pt. A dry, clean gown was put on the pt and a clean bed/incontinent bed pad placed under pt and pt was educated on how they are helpful. Pt assisted w/process minimally due to lack of mobility. Pt was moved up in bed by this RN w/assistance provided by Elise Turner RN. Pillows adjusted and HOB raised per request. RN asked if the pt needed anything else to which the pt replied I want my to come get me. This RN tried to show compassion by verbalizing understanding. This RN also told pt that it will be communicated to his to bring shorts to the hospital. Pt verbalized appreciation when all was completed. Call light w/in reach; side railsx3; night light on; and bed in lowest position for pt safety.
[2022-01-01 05:26] LABS: Basophils Absolute Auto 0.06 K/mm3 (0.00-0.10); Eosinophils Absolute Auto 0.23 K/mm3 (0.02-0.50); Eosinophils Percent Auto 3.8 % (1.0-6.0); Hematocrit 40.3 % (37.0-46.0); Hemoglobin 12.6 g/dL (12.4-15.3); Immature Granulocyte Absolute 0.01 K/mm3 (0.00-0.00); Immature Granulocyte Percent A 0.2 % (0.0-0.0); Lymphocytes Absolute Auto 2.05 K/mm3 (1.10-4.50); Lymphocytes Percent Auto 34.1 % (18.0-42.0); Mean Corpuscular HGB Conc 31.3 g/dL (32.0-36.0); Mean Corpuscular Volume 92.9 fL (78.0-102.0); Monocytes Absolute Auto 0.75 K/mm3 (0.10-0.90); Monocytes Percent Auto 12.5 % (2.0-11.0); Neutrophils Absolute Auto 2.9 K/mm3 (1.7-7.2); Neutrophils Percent Auto 48.4 % (50.0-70.0); Platelet Count Result 280 K/mm3 (150-420); Red Blood Count 4.34 M/mm3 (4.70-6.10); Red Cell Distribution Width 13.7 % (11.6-14.4)
[2022-01-01 05:35] LABS: Anion Gap 7 mmol/L (8-16); Blood Urea Nitrogen 15 mg/dL (7-18); Calcium 9.2 mg/dL (8.5-10.1); Carbon Dioxide 29 mmol/L (21-32); Chloride 101 mmol/L (98-108); Estimated CRCL calculation 45 ml/min; Estimated Glomerular Filt Rate 56; Glucose 126 mg/dL (70-99); Osmolality Calculated 286 mOsm/kg (285-295); Potassium 3.9 mmol/L (3.5-5.1); Sodium 137 mmol/L (136-145)
[2022-01-01 07:45] VITALS: BP 129/57; PULSE 102; RESP 18; TEMP 36.6; O2SAT 95
--- NOTE | 2022-01-01 07:47 | PM.SD2 ---
Same Day Admit/Disch: HPI History of Present Illness Chief complaint: dehydrtion nausea vomiting uti Narrative: Jesus Soto is a 76 year old male that presented to the emergency room with nausea and vomiting that started on Tuesday after patient had started on a new medication fariquax . Patient continues to have problems swallowing since his stroke and is being seen by Speech therapy, occupational therapy and Physical therapy . Patient while in the emergency room was found to be slightly dehydrated with a urinary tract infection and was admitted for rehydration and for his nausea and vomiting. [facility] Past Medical History Medical History Transient ischemic attack (TIA) Social History Social History Years smoked: 4 Smoking status: Former smoker Tobacco type: pipe Second hand tobacco smoke exposure: No Alcohol intake: former Drinks per week: 1 Substance use: never Substance use type: does not use Spiritual care concerns: No Same Day Admit/Disch: Med Pre-admit Medications Home Medications Medication Instructions Recorded Confirmed Type Centrum Silver Men 1 tab-cap PO DAILY 12/12/19 12/31/21 History acetaminophen 325 mg tablet 325 mg PO Q6H PRN Pain 12/12/19 12/31/21 History amlodipine 5 mg tablet (Norvasc) 5 mg PO DAILY 12/12/19 12/31/21 History atorvastatin 40 mg tablet 40 mg PO DAILY 12/12/19 12/31/21 History clopidogrel 75 mg tablet 75 mg PO DAILY 12/12/19 12/31/21 History empagliflozin 10 mg tablet 25 mg PO DAILY 12/12/19 12/31/21 History (Jardiance) finasteride 5 mg tablet 5 mg PO DAILY 12/12/19 12/31/21 History hydrocortisone 2.5 % lotion 1 applic topical HS 12/12/19 12/31/21 History levetiracetam 500 mg tablet 500 mg PO BID 12/12/19 12/31/21 History docusate sodium 100 mg tablet 100 mg PO 2XW 06/16/21 12/31/21 History ketoconazole 2 % topical cream 1 applic topical DAILY 12/31/21 12/31/21 History lisinopril 10 mg tablet 10 mg PO DAILY 12/31/21 12/31/21 History venlafaxine 150 mg 150 mg PO DAILY 12/31/21 12/31/21 History capsule,extended release 24 hr ciprofloxacin HCl 500 mg tablet 500 mg PO Q12H #6 tabs 01/01/22 Rx (Cipro) ondansetron 4 mg disintegrating 4 mg PO Q8H PRN nausea and 01/01/22 Rx tablet vomiting #14 tabs Exam Narrative: GENERAL:Ill -appearing, well-nourished, and in no acute distress. HEAD:Normocephalic, atraumatic. EYES: PERRLA ENT: Nares clear, no rhinorrhea or epistaxis. Mucous membranes moist. NECK: Supple. CHEST: Clear to auscultation. No respiratory distress. HEART: Regular rate and rhythm. Normal peripheral pulses. ABDOMEN: Soft, nontender, nondistended, normal active bowel sounds. EXTREMITIES: Normal range of motion.1+ edema. Left sided weakness d/t CVa SKIN: Warm, dry, no rash. NEURO: No focal deficits. Alert and oriented x3. DS: Data Data Completed and Pending Labs on day of discharge: Labs from last 24 hours 01/01/22 01/01/22 12/31/21 05:10 05:10 22:27 WBC 6.0 RBC 4.34 L Hgb 12.6 Hct 40.3 MCV 92.9 MCH 29.0 MCHC 31.3 L RDW 13.7 Plt Count 280 MPV 9.0 Immature Gran % (Auto) 0.2 H Neut % (Auto) 48.4 L Lymph % (Auto) 34.1 [place] % (Auto) 12.5 H Eos % (Auto) 3.8 Baso % (Auto) 1.0 Lymph # (Auto) 2.05 [place] # (Auto) 0.75 Eos # (Auto) 0.23 Baso # (Auto) 0.06 Abs Immat Gran (auto) 0.01 H Absolute Neuts (auto) 2.9 Absolute Nucleated RBC 0.00 Nucleated RBC % 0.0 Sodium 137 Potassium 3.9 Chloride 101 Carbon Dioxide 29 Anion Gap 7 L BUN 15 Creatinine 1.26 Estim Creat Clear Calc 45 Estimated GFR 56 L Glucose 126 H POC Capillary Glucose 119 H Calculated Osmolality 286 Lactic Acid Calcium 9.2 Total Bilirubin AST ALT Alkaline Phosphatase C-Reactive Protein NT-Pro-B Natriuret Pep Total Pro
[2022-01-01 08:10] VITALS: PULSE 102
[2022-01-01] MEDS: FINASTERIDE 5 MG TABLET PO (08:47)
[2022-01-01] MEDS: ATORVASTATIN 40 MG TABLET PO (08:47)
[2022-01-01] MEDS: CLOPIDOGREL BISULFATE 75 MG TABLET PO (08:47)
[2022-01-01] MEDS: levETIRAcetam 500 MG TABLET PO (08:47)
[2022-01-01] MEDS: VENLAFAXINE HCL XR 75 MG CAP.ER.24H 150 MG PO (08:47)
[2022-01-01] MEDS: amLODIPine BESYLATE 5 MG TABLET PO (08:48)
[2022-01-01] MEDS: lisinopriL 10 MG TABLET PO (08:48)
--- NOTE | 2022-01-01 09:40 | PCCCNOTE ---
Ruthie Medellin is ANP at [facility] works under Dr. Victor Hugo Johns. Office number is [phone] and fax number is [phone].
[2022-01-01 12:00] VITALS: PULSE 105
[2022-01-01] MEDS: ONDANSETRON INJ 4 MG/2 ML VIAL IV PUSH (12:02)
[2022-01-01 12:10] LABS: Glucose Point of Care 168 mg/dl (65-105)
--- NOTE | 2022-01-01 12:40 | PC.NURSE ---
Antiemetic medication helped with nausea. Patient states he is okay with discharging home. All discharge instructions and education reviewed with patient and his . Both parties state understanding. IV site removed, tip intact. Dressing applied to site. All belongings gathered together and sent home with patient. Patient accompanied to front door via wheelchair by this nurse. Left via private vehicle with . Denies any concerns at discharge.
--- NOTE | 2022-01-01 19:21 | PC.NURSE ---
Mrs Soto called for clarification on a medication order
--- NOTE | 2022-01-04 11:23 | PC.NURSE ---
Spouse states they received and understood the discharge instructions. Spouse also states everything was very good .
== END 2022-01-01 12:40 | disposition home health service (06) ==
LOC: CHSED 20:51 → CHS2ND 21:27
PROVIDERS: Nurse Practitioner Family; Admitting Provider Internal Medicine; Emergency Provider Emergency Medicine; Visit Provider Internal Medicine
DX: N39.0 Urinary tract infection, site not specified (principal); E86.0 Dehydration; E11.9 Type 2 diabetes mellitus without complications; I69.321 Dysphasia following cerebral infarction; N40.0 Benign prostatic hyperplasia without lower urinary tract symptoms; Z87.891 Personal history of nicotine dependence
CPT/HCPCS: 36415; 71045; 80048; 80053; 81001; 82948; 83605; 83690; 83880; 85025; 86140; 87040; 87086; 93005; 96361; 96365; 96375; 96376; 99285; A9270; G0378; J0696; J2405; J7030

== ENCOUNTER 2022-01-12 14:11 | Outpatient (NON) | payer MEDICARE, SELFPAY ==
[2022-01-12 14:44] LABS: Basophils Absolute Auto 0.08 K/mm3 (0.00-0.10); Basophils Percent Auto 0.8 % (0.0-1.0); Hematocrit 45.5 % (37.0-46.0); Hemoglobin 14.4 g/dL (12.4-15.3); Immature Granulocyte Absolute 0.03 K/mm3 (0.00-0.00); Immature Granulocyte Percent A 0.3 % (0.0-0.0); Lymphocytes Percent Auto 22.9 % (18.0-42.0); Mean Corpuscular HGB Conc 31.6 g/dL (32.0-36.0); Mean Corpuscular Hemoglobin 29.2 pg (27.0-31.0); Mean Corpuscular Volume 92.3 fL (78.0-102.0); Mean Platelet Volume 8.7 fl (8.7-11.0); Monocytes Absolute Auto 0.68 K/mm3 (0.10-0.90); Monocytes Percent Auto 6.8 % (2.0-11.0); Neutrophils Absolute Auto 6.8 K/mm3 (1.7-7.2); Neutrophils Percent Auto 67.2 % (50.0-70.0); Platelet Count Result 355 K/mm3 (150-420); Red Blood Count 4.93 M/mm3 (4.70-6.10); Red Cell Distribution Width 14.3 % (11.6-14.4)
[2022-01-12 14:45] LABS: Appearance Urine Clear (Clear); Bilirubin Urine Negative (Negative); Blood Urine 2+ (Negative); Glucose Urine UA 3+ (Negative); Ketones Urine Negative (Negative); Leukocyte Esterase Ur 2+ LEU/UL (Negative); Nitrate Urine Negative (Negative); Protein Urine Trace (Negative); Specific Grav Ur <= 1.005 (1.010-1.020); Urobilinogen Urine 0.2 mg/dL (0.2-1.0)
[2022-01-12 14:59] LABS: Alanine Aminotransferase 18 U/L (16-63); Albumin Level 3.2 g/dL (3.4-5.0); Alkaline Phosphatase 150 U/L (46-116); Anion Gap 9 mmol/L (8-16); Aspartate Amino Transferase 16 U/L (15-37); Bilirubin,Total 0.5 mg/dL (0.00-1.00); Blood Urea Nitrogen 21 mg/dL (7-18); Calcium 9.4 mg/dL (8.5-10.1); Carbon Dioxide 29 mmol/L (21-32); Chloride 99 mmol/L (98-108); Estimated Glomerular Filt Rate 58; Glucose 167 mg/dL (70-99); Osmolality Calculated 291 mOsm/kg (285-295); Potassium 3.9 mmol/L (3.5-5.1); Sodium 137 mmol/L (136-145); Total Protein 7.9 g/dL (6.4-8.2)
[2022-01-12 15:05] LABS: Add Urine Microscopic? YES; Color Urine Dark Yellow (Yellow); Squamous Epithelial Cell Urine Few /hpf (Few); WBC Urine >75 /hpf (0-3)
[2022-01-12 15:06] LABS: Bacteria Urine 2+ /hpf
== END 2022-01-12 14:12 | disposition home or self-care (01) ==
LOC: CHSLAB 14:34
DX: N39.0 Urinary tract infection, site not specified (principal); Z79.899 Other long term (current) drug therapy; E11.9 Type 2 diabetes mellitus without complications
CPT/HCPCS: 36415; 80053; 81001; 85025; 87086

== ENCOUNTER 2024-07-03 14:36 | Emergency (ER) | payer MEDICARE, BC, SELFPAY ==
--- NOTE | ~2024-07-03 | XR_ITS ---
XR chest 1V Ordering provider: Goyo Patricio APRN History: 79 years Male with . cough, chest congestion/wheelchair bound pt. . Comparison: December 31, 2021 FINDINGS: MEDIASTINUM: The cardiac silhouette is not enlarged. LUNGS: No infiltrates, effusions or pneumothorax. Vague opacity seen in the left midzone just lateral to the left hilum which is unchanged from previous examination most likely a granuloma. Prominent ma rkings bilaterally. Calcified granuloma in the left upper lobe unchanged. OTHER: No free air under the diaphragm. IMPRESSION: Prominent bronchovascular markings in the lower lobes which may indicate bronchitis. Vague opacity in the left perihilar area unchanged from previous examination. Reviewed, dictated and finalized at location A. IMPRESSION: Prominent bronchovascular markings in the lower lobes which may indicate bronch itis. Vague opacity in the left perihilar area unchanged from previous examination.
--- NOTE | 2024-07-03 14:38 | ED.URI ---
HPI - URI/Sore Throat General Chief Complaint: Upper Respiratory Infection Stated Complaint: cough Time Seen by Provider: 07/03/24 14:37 Source: patient Mode of arrival: ambulatory Limitations: no limitations History of Present Illness HPI Narrative: Jesus is a 79-year-old male patient presenting to the clinic today with complaints of a cough, sore throat, and chest congestion x2 days. He reports no known fever, chills, body aches, shortness breath, or chest pain. He is type 2 diabetic but is not taking any medications for this at this time and has been controlling it with diet. Caregiver stated his blood sugar was over 500 this morning but has retaken and around noon and it was 240s. States that he is normally in the 200s. Related Data Home Medications ?Medication ?Instructions ?Recorded ?Confirmed ?Last Taken ?Type Centrum Silver Men 1 tab-cap PO DAILY 12/12/19 12/31/21 Unknown History acetaminophen 325 mg tablet 325 mg PO Q6H PRN Pain 12/12/19 12/31/21 Unknown History amlodipine 5 mg tablet (Norvasc) 5 mg PO DAILY 12/12/19 12/31/21 Unknown History atorvastatin 40 mg tablet 40 mg PO DAILY 12/12/19 12/31/21 Unknown History clopidogrel 75 mg tablet 75 mg PO DAILY 12/12/19 12/31/21 Unknown History empagliflozin 10 mg tablet 25 mg PO DAILY 12/12/19 12/31/21 Unknown History (Jardiance) finasteride 5 mg tablet 5 mg PO DAILY 12/12/19 12/31/21 Unknown History hydrocortisone 2.5 % lotion 1 applic topical HS 12/12/19 12/31/21 Unknown History levetiracetam 500 mg tablet 500 mg PO BID 12/12/19 12/31/21 Unknown History docusate sodium 100 mg tablet 100 mg PO 2XW 06/16/21 12/31/21 Unknown History ketoconazole 2 % topical cream 1 applic topical DAILY 12/31/21 12/31/21 Unknown History lisinopril 10 mg tablet 10 mg PO DAILY 12/31/21 12/31/21 Unknown History venlafaxine 150 mg 150 mg PO DAILY 12/31/21 12/31/21 Unknown History capsule,extended release 24 hr Allergies Allergy/AdvReac Type Severity Reaction Status Date / Time nitrofurantoin Allergy Intermediate Nausea and Verified 07/03/24 14:52 Vomiting sulfamethoxazole Allergy Intermediate Nausea and Verified 07/03/24 14:52 Vomiting Review of Systems Review of Systems: Pertinent positives per HPI. Patient denies any fever, chills, rash, headache, visual changes, dizziness, shortness of breath, chest pain, palpitations, nausea, vomiting, diarrhea, constipation, abdominal pain, or any urinary issues. [facility] Past Medical History Medical History Transient ischemic attack (TIA) Social History Social History Years smoked: 4 Smoking status: Former smoker Tobacco type: pipe Second hand tobacco smoke exposure: No Alcohol intake: former Drinks per week: 1 Substance use: never Substance use type: does not use Spiritual care concerns: No Comments At the time of my signature, I reviewed and agree with the nursing past medical, surgical, social, and family history. There is no relevant family history pertinent to the patient complaint. Exam Narrative: General: Well-developed, well nourished, in no apparent distress Head: Normocephalic, atraumatic Eyes: Pupils equally round and reactive to light bilaterally, EOM intact, sclera and conjunctive clear, no discharge, lids normal Ears: TMs intact and congested, ear canals clear, no drainage, grossly hearing normal. Nose: Nares patent, clear nasal discharge, no inflammation, no sinus tenderness. Mouth: Oral pharynx without lesions or masses, good dentition, MMM. Neck: Supple, trachea midline, no enlargement of anterior or posterior cervical nodes, no thyroid masses or goiter palpable. Cardio: Regular rate and rhythm, s1 and s2 normal, no murmur appreciated. Resp: Diminished in the bases otherwise clear, no rhonchi, rales, wheezing or rubs Course Course Emergency Course: Portions of this record may have been created with voice recognition software. Level of Care: Express Care Visit Vital Signs Vital signs: Vital Signs Temperature 36.9 C 07/03/24 14:47 Pulse Rate 91 07/03/24 14:47 Respiratory Rate 17 07/03/24 14:47 Blood Pressure 135/59 L 07/03/24 14:47 Pulse Oximetry 97 07/03/24 14:47 Oxygen Delivery Room Air 07/03/24 14:47 Temperature 36.9 C 07/03/24 14:47 Pulse Rate 91 07/03/24 14:47 Respiratory Rate 17 07/03/24 14:47 Blood Pressure 135/59 L 07/03/24 14:47 Pulse Oximetry 97 07/03/24 14:47 Oxygen Delivery Room Air 07/03/24 14:47 Vital signs reviewed MDM - URI/Sore Throat MDM Narrative Medical decision making narrative: At the time of visit patient is resting comfortably on the exam table. Patient appears to be nontoxic. Labs: COVID, influenza, and strep test was performed. All testing was negative. We will send strep for culture. Diagnostics: Chest x-ray was performed shows likely bronchitis, no sign of pneumonia. Plan: I suspect patient has bronchitis/URI. Prescription for albuterol inhaler and Mucinex was sent to the pharmacy. Supportive measures were discussed with the patient and they voiced understanding discharge instructions and agrees to treatment plan. Return precautions reviewed Differential Diagnosis Differential diagnosis: Likely upper respiratory infection, otitis media, sinusitis, viral infection, bronchitis, influenza, pharyngitis and other (COVID, pneumonia) Lab Data Labs: Lab Results 07/03/24 Range/Units 15:09 POC Influenza A Ag Negative (Negative) POC Influenza B Ag Negative (Negative) POC SARS CoV-2 Ag Negative (Negative) POC Grp A Strep Screen Negative (Negative) Imaging Data Radiologist's impression: ITS Impressions Chest X-Ray 07/03/24 15:11 IMPRESSION: Prominent bronchovascular markings in the lower lobes which may indicate bronchitis. Vague opacity in the left perihilar area unchanged from previous examination. Discharge Plan Discharge Clinical Impression: Bronchitis Upper respiratory infection Qualifiers: URI type: unspecified URI Qualified Code(s): J06.9 - Acute upper respiratory infection, unspecified Patient Disposition: Home, Self-Care Condition: Stable Instructions: Antibiotic Form, Acute Bronchitis (ED), Cold Symptoms (ED) Additional Instructions: COVID, influenza, and strep test were all negative in the clinic today. We will send strep for culture if this comes back positive we will contact you in place him on antibiotics at that time. Chest x-ray shows likely bronchitis-no sign of pneumonia Cool-mist humidifier at the bedside Take prescription medications only as prescribed-albuterol inhaler and Mucinex May take [id number] Coricidin HBP for cold/flu symptoms Increase fluids and stay well hydrated Tylenol/motrin for pain/fever Flonase and OTC antihistamines as directed Vicks vapor rub to open sinuses Sinus rinses for congestion Cepacol spray, cough drops, throat lozenges, warm tea with honey/lemon, gargle salt water to soothe throat BRAT diet for diarrhea Clear liquids x 24 hours then advance as tolerated for nausea/vomiting Go to the ED if you develop a worsening in your condition- high fever not controlled by Tylenol or Motrin, dehydration, weakness, lethargy, shortness of breath, or chest pain. Follow up with your PCP in 3-5 days if symptoms persist. Patient Language: Luxembourgish Prescriptions: New albuterol sulfate 90 mcg/actuation HFA aerosol inhaler 2 puff inhalation Q4-6H PRN (Reason: shortness of breath or wheezing) 30 Days Qty: 8.5 0RF guaifenesin [Mucinex] 600 mg tablet extended release 12hr 600 mg PO BID PRN (Reason: congestion) 7 Days Qty: 14 0RF No Action docusate sodium 100 mg Tablet 100 mg PO 2XW venlafaxine 150 mg capsule,extended release 24hr 150 mg PO DAILY lisinopril 10 mg tablet 10 mg PO DAILY ketoconazole 2 % cream 1 applic TOPICAL DAILY ondansetron 4 mg tablet,disintegrating 4 mg PO Q8H PRN (Reason: nausea and vomiting) Qty: 14 0RF ciprofloxacin HCl [Cipro] 500 mg tablet 500 mg PO Q12H Qty: 6 0RF atorvastatin 40 mg tablet 40 mg PO DAILY levetiracetam 500 mg tablet 500 mg PO BID clopidogrel 75 mg tablet 75 mg PO DAILY amlodipine [Norvasc] 5 mg tablet 5 mg PO DAILY finasteride 5 mg tablet 5 mg PO DAILY Jardiance 10 mg tablet 25 mg PO DAILY acetaminophen 325 mg Tablet 325 mg PO Q6H PRN (Reason: Pain) hydrocortisone 2.5 % Lotion 1 applic TOPICAL HS Centrum Silver Men 1 tab-cap PO DAILY Follow-up/Referrals: UNKNOWN,DOCTOR [Non-Staff] - Time of Disposition: 15:19 Quality NIHSS Nursing Documentation ED NIHSS nursing documentation: reviewed/agree
[2024-07-03 14:47] VITALS: BP 135/59; PULSE 91; RESP 17; TEMP 36.9; O2SAT 97
[2024-07-03 15:10] LABS: EDSTREPNEGPOS1 Negative (Negative)
[2024-07-03 15:11] LABS: EDCOVIDSCREEN Negative (Negative); EDINFLUASCREEN Negative (Negative); EDINFLUBSCREEN Negative (Negative)
--- OUTSIDE RECORDS SUMMARY | 2024-07-03 16:24 | XMS_ITS | Encounter Summary ---
Author Organization [facility] Health Address [address] [place] [address] Care Team Providers Care Psychologist Industrial Organizational Name Role Phone Kimberly Navarrete MD Primary Care Provider Reason for Visit * Reason Onset Date Comments General 08/10/2017 Request to sign orders Encounter Details Date Type Department Care Team (Late st Contact Info) Description 08/10/2017 Telephone [facility] Internal Medicine [address] [address] Luis Carlos Belle General (Request to sign orders) Social History Tobacco Use Types Packs/Day Years Used Date Smoking Tobacco: Never Smokeless Tobacco: Never Alcohol Use Standard Drinks/Week Comments No 0 (1 standard drink = 0.6 oz pur e alcohol) Sex and Gender Information Value Date Recorded 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 Routed to paperwork department. Please have physician sign and fax back. CB #: [phone] * Telephone Encounter - Marylou Saba LPN - 08/10/2017 10:46 AM CDT Forms printed from media and placed in providers box. * Telephone Encounter - Luis Carlos Belle - 08/10/2017 10:08 AM CDT Anitha from [facility] called requesting that 3 orders with the followingdocument numbers be signed: [id number], [id number], [id number]. The orders were found in the media file and dated 07-28-17 at 3:00pm. Requested routed to paperwork department. CB: [phone] documented in this encounter Plan of Treatment Not on file documented as of this encounter Visit Diagnoses Not on filedocumented in this encounter Additional Health Concerns Infection Onset Date Last Indicated Resolved Time COVID-19 Under Investigation 11/20/2023 11/20/2023 11/20/2023 10:51 PM CDT COVID-19 Confirmed 11/20/2023 11/20/2023 4:33 AM CDT documented as of this encounter Care Teams Psychologist Industrial Organizational Relationship Specialty Start Date End Date Kimberly Navarrete MD PCP - General 07/17/17 documented as of this encounter
--- OUTSIDE RECORDS SUMMARY | 2024-07-03 16:24 | XMS_ITS | Encounter Summary ---
Author Organization [facility] Address [address] [place] [address] Care Team Providers Care Assistant Commissioner Name Role Phone Kimberly Navarrete MD Primary Care Provider Encounter Details Date Type Department Care Team (Late st Contact Info) Description 09/16/2017 Telephone [facility] Internal Medicine [address] [facility] [address] [place] [address] Kimberly Navarrete MD [address] [facility] [address] [place], [place] [id number] Social History Tobacco Use Types Packs/Day Years Used Date Smoking Tobacco: Never Smokeless Tobacco: Never Alcohol Use Standard Drinks/Week Comments No 0 (1 standard drink = 0.6 oz pur e alcohol) Sex and Gender Information Value Date Recorded 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 Gender Identity Not on file Sexual Orientation Not on file documented as of this encounter Miscellaneous Notes * Telephone Encounter - Dina Alfaro RN - 09/16/2017 11:10 AM CDT Opened in error documented in this encounter Plan of Treatment Not on file documented as of this encounter Visit Diagnoses Not on filedocumented in this encounter Additional Health Concerns Infection Onset Date Last Indicated Resolved Time COVID-19 Under Investigation 11/20/2023 11/20/2023 11/20/2023 10:51 PM CDT COVID-19 Confirmed 11/20/2023 11/20/2023 4:33 AM CDT documented as of this encounter Care Teams Assistant Commissioner Relationship Specialty Start Date End Date Kimberly Navarrete MD PCP - General 07/17/17 documented as of this encounter
--- OUTSIDE RECORDS SUMMARY | 2024-07-03 16:25 | XMS_ITS | Encounter Summary ---
Author Organization [facility] Address [address] [facility] [place] [address] Care Team Providers Care Manager Transfer Name Role Phone Kimberly Navarrete MD Primary Care Provider Encounter Details Date Type Department Care Team (Late st Contact Info) Description 05/02/2019 Lab Requisition [facility] [address] [facility] [place] [id number] Chrissie Medina, DO [address] [facility] [address] [place] [address] Social History Tobacco Use Types Packs/Day Years Used Date Smoking Tobacco: Former Pipe Smokeless Tobacco: Never Comments:quit 1979 Alcohol Use Standard Drinks/Week Comments No 0 (1 standard drink = 0.6 oz pur e alcohol) Sex and Gender Information Value Date Recorded Sex Assigned at Male 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 Yes 01/13/2019 Is person blind or have serious difficulty seein g? No 01/13/2019 Does person have serious dif ficulty walking/climbing stairs? No 01/13/2019 Does person have difficulty dressing/bathing? No 01/13/2019 Does person have difficulty doing errands alone? Yes 01/13/2019 Cognitive Status Response Date of Assessm ent Does person have difficulty concentrating/remembering/making decisions? No 01/13/2019 documented as of this encounter Plan of Treatment Not on file documented as of this encounter Procedures Procedure Name Priority Date/Time Associated Diagnosis Comments DERMATOPATHOLOGY Routine 05/01/2019 12:0 0 AM MANNEQUIN MOUNTER documented in this encounter Results * DERMATOPATHOLOGY (05/01/2019 12:00 AM MANNEQUIN MOUNTER) Case Report Dermatopathology Report Case: [id number] Authorizing Provider: Chrissie Medina DO Collected: 05/01/2019 12:00 AM Ordering Location: [facility] Lab Received: 05/02/2019 01:28 PM Pathologist: Elgin Sam MD Specimen: Skin, right back 0 7:25 PM [facility]IN [facility] DERMATOPATHOLOGY LABORAT[facility] Final Diagnosis Specimen A. 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 0 7:25 PM [facility]NEQUIN [facility]TER [facility]ERMATOPATHOLOGY LABOR[facility] Gross Description Specimen A: Received is one formalin filled container labeled with the patient's name and designated right back. The specimen consists of a shave measuring [id number]. Jar 0. 0 7:25 PM [facility]MAT[facility]ATH[facility] Microscopic Description Specimen A. SKIN, right back: This is a compound nevus. There is melanin pigment in the stratum corneum. There is architectural disorder characterized by a lentiginous proliferation of melanocytes between irregular nevus nests of cells along the dermal epidermal junction. There is underlying fibroplasia of the papillary dermis. The intradermal component is bland in appearance and matures with depth. (Compound Jay's Nevus or Compound Dysplastic Nevus) Sections show a perifollicular lymphohistiocytic infiltrate. 0 7:25 PM [facility]TER DERMATOPATHOLOGY LABORAT[facility] Disclaimer An external and internal positive and negative controls are appropriate for the histochemical, immunohistochemical and immunofluorescence stain(s) in this case (if any), except where stated explicitly. The performance characteristics of the stain(s) cited in this report were developed and its performance characteristic determined by the Dermatopathology Laboratory at [facility], directed by Dr. Sherry Sam. These tests need not be, and therefore are not, approved by the [place] Food and Drug Administration. The tests are used for clinical purposes. Billing Codes Specimen Charges Stain Charges 83579 1 0 7:25 PM MANNEQUIN [facility]TER [facility]ERMATOPATHOLOGY LABOR[facility] Embedded Images 0 7:25 PM MANNEQUIN MOUNTER DERMATOPATHOLOGY LABORATORY Pathology/Cytolog y TISSUE SPECIMEN FROM SKIN / Unknown 05/01/2019 05/02/2019 1:28 PM MANNEQUIN MOUNTER Chrissie Medina DO LAB - PATHOLOGY/C YTOLOGY ORDERABLES Performing Organization Address City/State/[facility] Co de Phone Number DERMATOPATHOLOGY LABORATORY [facility] - Department of Dermatology [address] [place] [address], 5th Floor Lab [address] [phone] documented in this encounter Visit Diagnoses Not on filedocumented in this encounter Additional Health Concerns Infection Onset Date Last Indicated Resolved Time COVID-19 Under Investigation 11/20/2023 11/20/2023 11/20/2023 10:51 PM CDT COVID-19 Confirmed 11/20/2023 11/20/2023 4 4:33 AM CDT documented as of this encounter Care Teams Manager Transfer Relationship Specialty Start Date End Date Kimberly Navarrete MD PCP - General 07/17/17 documented as of this encounter
--- OUTSIDE RECORDS SUMMARY | 2024-07-03 16:25 | XMS_ITS ---
Author Organization [facility] [employer] [facility] Address [address] [place] [address] [address] Care Team Providers Care Hematology Technologist Name Role Phone Ro Clemente [phone] Medications Medication SIG (Take, Route, Fr equency, Duration) Notes Start Date End Date Status Memantine HCl 5 MG 1 tablet Orally Once a day for 90 days 03/21/2024 Active Social History Sex Assigned At : Social History Observation Description Sex Assigned At Male Encounters Encounter Location Date Provider Diagnosis [facility] [employer] [address] [address] 03/21/2024 Ro Chyna Other assisted (current) drug therapy Z79.899 Assessments Encounter Date Diagnosis (ICD Code) Assessment Notes Treatment Notes Treatment Clinical Notes Section Notes 03/21/2024 Other assisted (current) drug therapy (ICD-10 - Z79.899) Plan Of Treatment Medication Medication Name Sig Start Date Stop Date Notes Memantine HCl 5 MG 1 tablet Orally Once a day for 90 days 03/21/2024 Progress Notes * MOSHE HAQUE LDOB:1944 (78 yo M)Acc No.[id number]:03/21/2024 Patient: MOSHE AWAD :1945 A ge:78 Y S ex:Male Phone: Address:[facility] [place], [address] * Refills Refill Memantine HCl Tablet, 5 MG, Orally, 90, 1 tablet, Once a day, 90 days, Refills=0 * true * Date: Generated for Printi ng/Faxing/eTransmitting on: 0 07/03/2024 04:24 PM CDT
--- OUTSIDE RECORDS SUMMARY | 2024-07-03 16:25 | XMS_ITS ---
Author Organization [facility] Address [address] [place] [address] [address] Care Team Providers Care Briar Cutter Name Role Phone Ro Clemente Lyubov [phone] Medications Medication SIG (Take, Route, Frequency, Duration) Notes Start Date End Date Status Divalproex Sodium ER 500 MG 1 tablet Orally twice daily for 90 days 03/26/2024 09/22/2024 Active Social History Sex Assigned At : Social History Observation Description Sex Assigned At Male Encounters Encounter Location Date Provider Diagnosis [facility] [address] [address] 03/26/2024 Ro Clemente Bipolar 1 disorder F31.9 Assessments Encounter Date Diagnosis (ICD Code) Assessment Notes Treatment Notes Treatment Clinical Notes Section Notes 03/26/2024 Bipolar 1 disorder (ICD-10 - F31.9) Plan Of Treatment Medication Medication Name Sig Start Date Stop Date Notes Divalproex Sodium ER 500 MG 1 tablet Ora lly twice daily for 90 days 03/26/2024 09/22/2024 Progress Notes * NERISJERSEY MOSHE LDOB:1944 (78 yo M)Acc No.[id number]:03/26/2024 Patient: MOSHE AWAD :1945 A ge:78 Y S ex:Male Phone: Address:[facility] [place], [address] * Refills Start Divalproex Sodium ER Tablet Extended Release 24 Hour, 500 MG, Orally, 180, 1 tablet, twice daily, 90 days, Refills=1 * true * Date: Generated for Compai ng/Faguillermog/eTransmitting on: 0 07/03/2024 04:25 PM CDT
--- OUTSIDE RECORDS SUMMARY | 2024-07-03 16:25 | XMS_ITS | Encounter Summary ---
Author Organization [facility] Address [address] [place] [address] Phone Care Team Providers Care Nail Assembly Machine Operator Name Role Phone Ruthie Calderon NP Primary Care Provider Liam FONTAINE MD, Yaw Willis Unavailable Linda Brar MD Primary Care Provid er Encounter Details Date Type Department Care Team (Latest Contact Info) Description 12/31/2021 Orders Only [facility] Scanning, Provider Social History Tobacco Use Types Packs/Day Years Used Date Smoking Tobacco: Former Pipe Q uit: 1980 Smokeless Tobacco: Never Alcohol Use Standard Drinks/Week Comments Yes 0 (1 standard drink = 0.6 oz pur e alcohol) Occasionally PHQ-2 Answer Date Recorded PHQ-2 Total Score (If total score is 3 or more points, staff should administer the PHQ-9) 0 12/12/2020 Sex and Gender Information Value Date Recorded Sex Assigned at Not on file 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 Gender Identity Male 09/01/2020 11:55 AM CDT Sexual Orientation Straight 09/01/2020 11 :55 AM CDT documented as of this encounter Plan of Treatment Not on file documented as of this encounter Procedures Procedure Name Priority Date/Time Associated Diagnosis Comments SCAN - RADIOLOGY/IMAGING 12/31/2021 CARDIOLOGY DOCUMENT SCAN 12/31/2021 documented in this encounter Results * CARDIOLOGY DOCUMENT SCAN (12/31/2021) Anatomical Region Laterality Modality Other us Provider Scanning CV CARDIAC SERVICES PROCEDURES Final Result * SCAN - RADIOLOGY/IMAGING (12/31/2021) Anatomical Region Laterality Modality Other us Provider Scanning Edited Result - Final documented in this encounter Visit Diagnoses Not on filedocumented in this encounter Additional Health Concerns Infection Onset Date Last Indicated Resolved Time COVID: Suspected 08/16/2023 08/16/2023 08/16/2023 8:55 PM CDT documented as of this encounter Care Teams Nail Assembly Machine Operator Relationship Specialty Start Date End Date Ruthie Calderon NP PCP - General Nurse Practitioner 02/24/21 06/07/24 Linda Brar MD [address] [facility] [address] [place] [address] PCP - General Geriatric Medicine 06/11/24 [place], [place] [address] [facility] [address] [place] [address] Referring Physician Urology 02/17/22 documented as of this encounter
--- OUTSIDE RECORDS SUMMARY | 2024-07-03 16:25 | XMS_ITS | Encounter Summary ---
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 Gender Identity Male 09/01/2020 11:55 AM CDT Sexual Orientation Straight 09/01/2020 11 :55 AM CDT documented as of this encounter Plan of Treatment Not on file documented as of this encounter Procedures Procedure Name Priority Date/Time Associated Diagnosis Comments SCAN - RADIOLOGY/IMAGING 06/16/2021 CARDIOLOGY DOCUMENT SCAN 06/16/2021 documented in this encounter Results * CARDIOLOGY DOCUMENT SCAN (06/16/2021) Anatomical Region Laterality Modality Other us Provider Scanning CV CARDIAC SERVICES PROCEDURES Final Result * SCAN - RADIOLOGY/IMAGING (06/16/2021) Anatomical Region Laterality Modality Other us Provider Scanning Edited Result - Final documented in this encounter Visit Diagnoses Not on filedocumented in this encounter Additional Health Concerns Infection Onset Date Last Indicated Resolved Time COVID: Suspected 08/16/2023 08/16/2023 08/16/2023 8:55 PM CDT documented as of this encounter Care Teams Material Flow Analyst Relationship Specialty Start Date End Date Ruthie Calderon NP PCP - General Nurse Practitioner 02/24/21 06/07/24 Linda Brar MD [address] [facility] [address] [place] [address] PCP - General Geriatric Medicine 06/11/24 [place], MD [address] [facility] [address] [place] [address] Referring Physician Urology 02/17/22 documented as of this encounter
--- OUTSIDE RECORDS SUMMARY | 2024-07-03 16:25 | XMS_ITS | Clinical Summary ---
Author Organization [facility] Address [address] [place] [address] Care Team Providers Care Master Scheduler Name Role Phone Julian Verde MD Primary Care Provider Allergies No known active allergies Medications acetaminophen 325 MG tablet Take 650 mg by mouth every 4 (four) hours as needed for Pain. Active amlodipine 5 MG tablet Take 5 mg by mouth daily. Active aspirin 81 MG chewable tablet Chew 81 mg by mouth daily. Active atorvastatin 40 MG tablet Take 40 mg by mouth daily. Active clopidogrel 75 MG tablet Take 75 mg by mouth daily. Active finasteride 5 MG tablet Take 5 mg by mouth daily. Active metoclopramide 5 MG tablet Take 5 mg by mouth as needed. Active pantoprazole 40 MG tablet Take 40 mg by mouth daily. Active tamsulosin 0.4 MG Cap Take 0.4 mg by mouth daily. Active escitalopram 10 MG tablet Take 10 mg by mouth daily. Active erythromycin 5 MG/GM (0.5%) ophthalmic ointment Apply 1 cm ribbon in affected eye(s) up to 6x/day x7-10 days 3.5 g 12/31/2017 Active Family History Medical History Relation Comments Diabetes Mother Relation Status Comments Mother Social History Tobacco Use Types Packs/Day Years Used Date Smoking Tobacco: Former Cigarettes Smokeless Tobacco: Never Comments:QUIT IN HIS 20'S Alcohol Use Standard Drinks/Week Comments Yes 0 (1 standard drink = 0.6 oz pur e alcohol) SOCIALLY Sex and Gender Information Value Date Recorded Sex Assigned at Not on file Legal Sex Male 5:47 PM CDT Gender Identity Not on file Sexual Orientation Not on file Last Filed Vital Signs Vital Sign Reading Time Taken Comments Blood Pressure 130/65 12/31/2017 3:11 PM CDT Pulse 83 12/31/2017 3:11 PM CDT Temperature 36.8 C (98.3 F) 12/31/2017 3:11 PM CDT Respiratory Rate 18 12/31/2017 3:11 PM CDT Oxygen Saturation 97% 12/31/2017 3:11 PM CDT Inhaled Oxygen Concentration - - Weight 77.1 kg (170 lb) 12/31/2017 3:11 PM CDT Height 177.8 cm (5' 10 ) 12/31/2017 3:11 PM CDT Body Mass Index 24.39 12/31/2017 3:11 PM CDT Plan of Treatment Health Maintenance Due Date Last Done Comments Hepatitis C 1964 DTaP, Tdap and Td Vaccines ( 1 - Tdap) 1965 Zoster Vaccines (1 of 2) 1996 Annual Medicare Wellness Visit 2011 Pneumococcal Vaccine: 65+ Ye ars (2 of 2 - PCV) 03/30/2018 03/30/2017 RSV Immunization or 60+ Years (1 - 1-dose 75+ series) 2021 COVID-19 Vaccine ( - 2023-2 5 season) 2023 Influenza Adult (#1) 2024 Colorectal Cancer Screening Colonoscopy (10 Years) Discontinued Meningococcal B Vaccine Aged Out No l onger eligible based on patient's age to complete this topic Meningococcal Vaccine Aged Out No maria c blossom eligible based on patient's age to complete this topic RSV Immunizations Under 20 Months Aged Out No longer eligible based on patient's age to complete this topic Procedures Procedure Name Priority Date/Time Associated Diagnosis Comments COLONOSCOPY Routine CONFIGURATION MANAGEMENT ANALYST from Last 3 Months or Most Recently Relevant to Health Maintenance Results * Colonoscopy ( CONFIGURATION MANAGEMENT ANALYST) Narrative [facility] TO EPIC CONVERSION - CONFIGURATION MANAGEMENT ANALYST Documented hx of procedure Procedure Note Moses Mcintosh MD - 02/19/2018 Documented hx of procedure us Generic Conversion Md MCINTOSH GI PROCEDURE ORDERABLES Final Result [employer] TO EPIC CONVERSION from Last 3 Months or Most Recently Relevant to Health Maintenance Insurance MEDICARE [facility] Care Teams Master Scheduler Relationship Specialty Start Date End Date Julian Verde MD [address] [place] [address] PCP - General 06/21/16
--- OUTSIDE RECORDS SUMMARY | 2024-07-03 16:25 | XMS_ITS | Clinical Summary ---
Author Organization [facility] [employer] Address [address] [place] [address] Care Team Providers Care Pillow Filler Name Role Phone Kimberly Navarrete MD Primary Care Provider Source Comments [facility],non-owned Affiliates and Associated Physician Practices is amultiple site organization consisting of ambulatory clinics and hospital sitesin [place], [place], [place] and [place]. This disclosure is being madepursuant to the Care Everywhere program and may not contain all information available regarding this patient. Last updated 18.[facility] [employer] Allergies Active Allergy Reactions Criticality Noted Date Comments Nitrofurantoin Nausea and/or Vomiting Medium 8 Sulfamethoxazole W-Trimethoprim Nausea and/or Vomiting Medium 07/14/2017 Medications * Be aware that medications may not be up to date on this document. Alwaysverify current medications with the patient. Medication Sig Dispensed Refills Start Date End Date Status Multiple Vitamins-Minerals (CENTRUM SILVER ADULT 50+ PO) Take by mouth once daily Active triamcinolone acetonide (KENALOG) 0.1 % ointment Apply to affected area 2 times daily as needed Active hydrocortisone (HYTONE) 2.5 % cream Apply to affected area 2 times daily as needed Active venlafaxine XR 24hr (EFFEXOR XR) 37.5 MG capsule Take 1 capsule by mouth once daily for 7 days 7 capsule 03/27/2019 Active Docusate Sodium (DSS) 100 MG Take 100 mg by mouth 2 times daily as needed Active Cholecalciferol 50 MCG (2000 UT) Take 50 mcg by mouth once daily 09/22/2023 Active divalproex ER 24hr (Depakote ER) 500 MG tabletIndications:M ood Disorder Take 1 (one) tablet by mouth 2 times daily Reasons: Mood Disorder 60 tablet 12/20/2023 Active venlafaxine XR 24hr (Effexor XR) 150 MG capsuleIndications: Major Depressive Disorder Take 1 (one) capsule by mouth daily with breakfast Reasons: Major Depressive Disorder 30 capsule 12/20/2023 Active metFORMIN (Glucophage) 1000 MG tablet Take 1 (one) tablet by mouth 2 times daily with morning and evening meal 60 tablet 12/20/2023 Active atorvastatin (Lipitor) 40 MG tabletIndications:H yperlipidemia Take 1 (one) tablet by mouth once daily Reasons: High Amount of Fats in the Blood 30 tablet 12/20/2023 Active QUEtiapine (SEROquel) 100 MG tablet Take 1 (one) tablet by mouth at bedtime 30 tablet 12/20/2023 Active amLODIPine (Norvasc) 2.5 MG tabletIndications:H ypertension Take 1 (one) tablet by mouth once daily Reasons: High Blood Pressure Disorder 30 tablet 12/21/2023 Active nystatin (Mycostatin) 697919 UNIT/GM powderIndications:C utaneous Candidiasis Apply to affected area 2 times daily Reasons: Skin Infection due to Bozena Yeast 15 g 12/20/2023 Active calcium 500 MG tablet Take 1 (one) tablet by mouth 2 times daily with morning and evening meal 60 tablet 12/20/2023 Active finasteride (Proscar) 5 MG tabletIndications:B enign Prostatic Hypertrophy Take 1 (one) tablet by mouth once daily Reasons: Benign Enlargement of Prostate 30 tablet 12/21/2023 Active tamsulosin (Flomax) 0.4 MG capsule Take 1 (one) capsule by mouth at bedtime At the same time every day after a meal. 30 capsule 12/20/2023 Active clopidogrel (plaVIX) 75 MG tablet Take 1 (one) tablet by mouth once daily 30 tablet 12/20/2023 Active pantoprazole EC (Protonix) 40 MG tablet Take 1 (one) tablet by mouth once daily 30 tablet 12/21/2023 Active Active Problems Problem Noted Date Diagnosed Date Bilateral lower extremity edema 12/12/2023 Hypokalemia 11/10/2023 Electrocution 11/10/2023 Severe episode of recurrent major depressive disorder, with psychotic features 11/10/2023 Dementia with behavioral disturbance 11/10/2023 TIA (transient ischemic attack) 01/12/2019 Sensorineural hearing loss (SNHL) of both ears 1 BPH (benign prostatic hyperplasia) 08/09/2017 Type 2 diabetes mellitus without complications 0 06/06/2017 Overview (02/13/2018): diagnosed Enlarged prostate without lo wer urinary tract symptoms (luts) 06/06/2017 Pneumonitis due to inhalation of food and vomit 05/24/2017 Abnormal weight loss 05/10/2017 Acute embolism and thrombosis of right femoral v ein 04/24/2017 Gastrostomy status 04/24/2017 Hemiplegia and hemiparesis f ollowing cerebral infarction affecting left non-dominant side 04/24/2017 Hyperlipidemia, unspecified 04/24/2017 FPC (current) use of antithrombotics/antip latelets 04/24/2017 FPC (current) use of aspirin 04/24/2017 Pneumonia due to hemophilus influenzae 8 Presence of other vascular implants and grafts 0 04/24/2017 Nontraumatic intracerebral hemorrhage 03/26/2017 Acute right MCA stroke 03/24/2017 HTN (hypertension) GERD (gastroesophageal reflux disease) DM (diabetes mellitus) Resolved Problems Problem Noted Date Diagnosed Date Resolved Date CVA (cerebral vascular accident) 08/09/2017 08/22/2017 Diabetes mellitus 08/09/2017 08/22/2017 Overview (08/09/2017): Overview: diagnosed DVT (deep venous thrombosis) 08/09/2017 08/22/2017 Cerebral infarction 06/06/2017 08/23/19 18 Acute embolism and thrombosi s of deep vein of lower extremity 06/06/2017 08/22/2017 Dysphagia following cerebral infarction 03/26/2017 08/22/2017 Cerebral infarction due to u nspecified occlusion or stenosis of right middle cerebral artery 03/24/2017 08/22/2017 Immunizations Name Administration Dates Next Due INFLUENZA VACCINE, TRIV. (AF LURIA, FLUZONE TRIVALENT; 6MO+) (IIV3) 01/27/2023 Covid Moderna primary monova lent 12+ yr 0.5mL 07/18/2020 Covid Pfizer primary monoval ent 12+ yr 0.3mL Purple cap 02/19/2021 INFLUENZA VACCINE 02/03/2022,01/16/2017 INFLUENZA VACCINE, HIGH-DOSE , QUADR. (FLUZONE HIGH-DOSE QUADRIVALENT; 65Y+), 0.7 ML (HD-IIV4) 01/27/2023,02/04/2022,04/02/2021,2019,01/11/2019,01/06/2018 INFLUENZA VACCINE, HIGH-DOSE , TRIV. (FLUZONE HIGH-DOSE TRIVALENT; 65Y+) (HD-IIV3) 01/11/2019 PNEUMOCOCCAL PCV20 CONJ VAC IM 03/04/2022 PNEUMOCOCCAL PPSV23 03/30/2017 TDAP (7yrs+) 08/04/2020 TDAP, HISTORIC VACCINE 05/05/2023 Td (Adult), 2 Lf Tetanus Tox oid, Adsorbed, Pf 05/05/2023 Family History Medical History Relation Name Comments Parkinson's Disease Brother 1 Other Brother 2 atrial fib Other - Cardiac Father CAD (Coronary Artery Disease) Mother Diabetes - Type 2 Mother Other Mother atrial fib Other - Cardiac Mother Glaucoma Paternal Aunt 1 Glaucoma Paternal Aunt 2 Glaucoma Paternal Grandmother Cancer - Uterine Sister Macular Degeneration Neg Hx Relation Name Status Comments Brother 1 Brother 2 Father Mother Paternal Aunt 1 Paternal Aunt 2 Paternal Grandmother Sister Social History Tobacco Use Types Packs/Day Years Used Date Smoking Tobacco: Former Pipe Smokeless Tobacco: Never Tobacco Cessation:Counseling Given: Not Answered Comments:quit 1979 Alcohol Use Standard Drinks/Week Comments Yes 0 (1 standard drink = 0.6 oz pur e alcohol) RARELY AUDIT-C Answer Date Recorded Q1: How often do you have a drink containing alc ohol? Monthly or less 11/09/2023 Q2: How many drinks containi ng alcohol do you have on a typical day when you are drinking? 1 or 2 11/09/2023 Q3: How often do you have si x or more drinks on one occasion? Never 11/09/2023 Overall Financial Resource Strain (CARDIA) Answe r Date Recorded How hard is it for you to pa y for the very basics like food, housing, medical care, and heating? Not hard at all 11/10/2023 [facility] Occupat ional Health - Occupational Stress Questionnaire Answer Date Recorded Do you feel stress - tense, restless, nervous, or anxious, or unable to sleep at night because your mind is troubled all the time - these days? To some extent 11/10/2023 Hunger Vital Sign Answer Date Recorded Within the past 12 months, y ou worried that your food would run out before you got the money to buy more. Never true 11/10/19 Within the past 12 months, t he food you bought just didn't last and you didn't have money to get more. Never true 11/10/2023 PRAPARE - Transportation Answer Date Re corded In the past 12 months, has l ack of transportation kept you from medical appointments or from getting medications? No 10/17 In the past 12 months, has l ack of transportation kept you from meetings, work, or from getting things needed for daily living? No 11/10/2023 Housing Stability Vital Sign Answer Kishor e Recorded In the last 12 months, was t here a time when you were not able to pay the mortgage or rent on time? No 11/10/2023 In the last 12 months, how many places have you lived? 1 11/10/2023 In the last 12 months, was t here a time when you did not have a steady place to sleep or slept in a residential (including now)? 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 Gender Identity Not on file Sexual Orientation Not on file Last Filed Vital Signs Vital Sign Reading Time Taken Comments Blood Pressure 110/82 12/20/2023 7:51 AM CDT Pulse 88 12/20/2023 7:51 AM CDT Temperature 36.4 C (97.6 F) 12/20/2023 7:51 AM CDT Respiratory Rate 16 12/20/2023 7:51 AM CDT Oxygen Saturation 99% 12/20/2023 7:51 AM CDT Inhaled Oxygen Concentration - - Weight 78.9 kg (173 lb 14.4 oz) 12/12/2023 7:30 PM CDT Height 175.3 cm (5' 9 ) 12/12/2023 7:30 PM CDT Body Mass Index 25.68 12/12/2023 7:30 PM CDT Plan of Treatment Health Maintenance Due Date Last Done Comments MEDICARE AWV 12 MONTHS 1945 ZOSTER VACCINE (1 of 2) 1996 DIABETES-FOOT EXAM WITH MONOFILAMENT 07/18/2017 Respiratory Syncytial Virus (RSV) Vaccine Pt: or over 60 yrs (1 - 1-dose 75+ series) 2021 DIABETES RETINOPATHY SCREENING 02/24/2023 02/24/2021, 10/11/2019, 08/03/2018 COVID-19 VACCINE ( season) 2023 02/05/2022, 02/05/2022, 02/19/2021, Additional history exists INFLUENZA VACCINE (#1) 2023 , 01/27/2023, 02/04/2022, Additional history exists DEPRESSION SCREENING 04/18/2024 DIABETES - URINE PROTEIN SCREENING 04/18/2024 01/26/2023, 06/27/2017 DIABETES-HGB A1C 05/13/2024 11/11/2023, 08/2023, 09/30/2022, Additional history exists DIABETES-SERUM CREATININE 11/27/20242023, 11/20/2023, 11/12/2023, Additional history exists DTAP/TDAP/TD VACCINES (4 - Td or Tdap) 05/05/2033 05/05/2023, 05/05/2023, 08/04/2020 HEPATITIS C SCREENING Completed 06/27/2017 PNEUMOCOCCAL VACCINE 50+ Completed 03/04/2022, 03/18 HEPATITIS B VACCINE Aged Out No longe r eligible based on patient's age to complete this topic HIB VACCINE Aged Out No longer eligi ble based on patient's age to complete this topic HPV VACCINE Aged Out No longer eligi ble based on patient's age to complete this topic MENINGOCOCCAL (Group B) VACCINE SHARED DECISION-MAKING Aged Out No longer eligible based on patient's age to complete this topic MENINGOCOCCAL GROUPS A/C/Y/W VACCINE Aged Out No longer eligible based on patient's age to complete this topic Procedures Procedure Name Priority Date/Time Associated Diagnosis Comments BASIC METABOLIC PANEL (CALCIUM TOTAL) AM Draw 11/28/2023 9:01 AM CDT HEMOGLOBIN A1C Routine 11/11/2023 7:13 AM CDT EYE EXAM 02/24/2021 MICROALB/CREAT RATIO URINE RANDOM PANEL Routine 06/27/2017 1:02 PM CDT HEPATITIS C AB SCREEN RFLX NAAT QUANT Routine 06/27/2017 12:07 PM CDT from Last 3 Months or Most Recently Relevant to Health Maintenance Results * (ABNORMAL) BASIC METABOLIC PANEL (CALCIUM TOTAL) (11/28/2023 9:01 AM CDT) Glucose 202(H) 70 - 105 mg/dL 11/28/2023 9:34 AM CDT [facility] Sodium 139 136 - 145 mmol/L 11/28/2023 9:34 AM CDT [facility] Potassium 4.2 3.5 - 5.1 mmol/L 11/28/2023 9:34 AM CDT [facility] Chloride 103 98 - 107 mmol/L 11/28/2023 9:34 AM CDT [facility] CO2 28 22 - 29 mmol/L 11/28/2023 9:34 AM CDT [facility] Calcium 9.1 8.4 - 10.4 mg/dL 11/28/2023 9:34 AM CDT [facility] Anion Gap 8 6 - 16 mmol/L 11/28/2023 9:34 AM CDT [facility] BUN 23 7 - 26 mg/dL 11/28/2023 9:34 AM CDT [facility] Creatinine 1.03 0.72 - 1.25 mg/dL 11/28/2023 9:34 AM CDT [facility] eGFR by CKD-EPI 75(L) >=90 mL/min/1.7 3 m2 11/28/2023 9:34 AM CDT [facility] Blood BLOOD SPECIMEN / Unknown Venipuncture / Unknown 11/28/2023 9:01 AM CDT 11/28/2023 9:03 AM CDT Sue Clemens MD LAB - CHEMISTRY [facility] Organization Address City/State/ZIP Co de Phone Number [facility] [address] [place] [address] * (ABNORMAL) HEMOGLOBIN A1C (11/11/2023 7:13 AM CDT) Hemoglobin A1c 7.6(H) <5.7 % 11/11/2023 7:41 AM CDT [facility] Estimated Average Glucose 171 mg/dL 11/11/2023 7:41 AM CDT [facility] Blood BLOOD SPECIMEN / Unknown Venipuncture / Unknown 11/11/2023 7:13 AM CDT 11/11/2023 7:25 AM CDT Narrative [facility] - 11/11/2023 7:41 AM CDT HbA1c Interpretation: Normal: < 5.7% Pre-diabetes: 5.7-6.4% Diabetes: Equal to or greater than 6.5% Test results diagnostic of diabetes should be repeated for confirmation. Treatment target values recommended by ADA and other clinical organizations should be used to evaluate metabolic control in patients. This test should not replace glucose testing for patients with Type 1 diabetes, pediatric patients, or women. Falsely low HbA1c results may be observed in patients with clinical conditions that shorten erythrocyte life span or decrease mean erythrocyte age such as the presence of unstable hemoglobin variants, elevated hemoglobin F level or other causes of hemolytic anemia. HbA1c may not accurately reflect glycemic control when clinical conditions that affect erythrocyte survival are present. Severe Iron deficiency anemia may yield falsely high results. Hemoglobin A1c assay should not be used to diagnose or monitor diabetes in patients with malignancy, recent blood transfusion, chronic kidney or liver disease. This method may yield falsely low results when hemoglobin (HbF) exceeds 5% in the specimen. The Wallace StartXnity assay for the measurement of HbA1c is a National Glycohemoglobin Standardization Program (NGSP) certified method. Sue Clemens MD LAB - CHEMISTRY [facility] [address] [place] [address] * EYE EXAM (02/24/2021) Anatomical Region Laterality Modality Other 02/24/2021 Narrative 02/24/2021 Ordered by an unspecified provider. Scanned Document SCANNING ONLY * MICROALB/CREAT RATIO URINE RANDOM PANEL (06/27/2017 1:02 PM CDT) Albumin Random Urine 16.0 Not Established mcg/mL [facility] Creatinine Urine 297 Not Established mg/dL [facility] Comment:Result obtained by [place]. Urine Albumin/Creati nine Ratio 5 <30 mg/g [facility] Urine specimen (specimen) URINE / Unknown 06/27/2017 1:02 PM CDT 06/27/2017 1:35 PM CDT Kimberly Navarrete MD LAB - URINE CH EMISTRY ORDERABLES Performing Organization Address [facility] Co de Phone Number [address] [phone] * HEPATITIS C AB SCREEN RFLX PCR QUANT (06/27/2017 12:07 PM CDT) Hepatitis C Antibody Non-react dennys Non-reac tive [facility] Comment: Hepatitis C Antibody screen indicates no serologic evidence of past or current infection with Hepatitis C Virus. Patients with unexplained liver disease who are immunocompromised or suspected of having acute Hepatitis C infection may benefit from Nucleic Acid Test (KIM) for Hepatitis C Viral RNA to confirm Hepatitis C status. BLOOD SPECIMEN / Unknown 06/27/2017 12:07 PM CDT 06/27/2017 1:35 PM CDT Kimberly Navarrete MD LAB - CHEMISTR Y ORDERABLES [facility] [address] [phone] from Last 3 Months or Most Recently Relevant to Health Maintenance Advance Directives Documents on File Type Date Recorded Patient Sign Letterer Expl anation Adv Directive/Living Will/POA 12/21/2023 5:34 PM * Full Code (Latest Code Status on File) Date Activated Date Inactivated Comments 11/10/2023 11:35 AM 12/20/2023 1:19 PM * Full Code Date Activated Date Inactivated Comments 01/13/2019 4:48 AM 01/13/2019 2:31 PM Care Teams Pillow Filler Relationship Specialty Start Date End Date Kimberly Navarrete MD PCP - General 07/17/17
--- OUTSIDE RECORDS SUMMARY | 2024-07-03 16:25 | XMS_ITS ---
Author Organization [facility] [employer] Address [facility] [address] [facility] [address] [place] [address] Care Team Providers Care Maintenance Man Name Role Phone Ro Clemente [phone] REASON FOR VISIT Refills Social History Sex Assigned At : Social History Observation Description Sex Assigned At Male Encounters Encounter Location Date Provider Diagnosis [facility] [employer] [address] [address] 03/22/2024 Ro Clemente Plan Of Treatment No Information Progress Notes * MOSHE HAQUE LDOB:1944 (78 yo M)Acc No.[id number]:03/22/2024 Patient: Evangelista SANCHEZ MOSHE Mancini :1945 A ge:78 Y S ex:Male Phone: Address:[facility] [address], [place], [address] * true * Date: Generated for Compai ng/Faxing/eTransmitting on: 0 07/03/2024 04:25 PM CDT
--- OUTSIDE RECORDS SUMMARY | 2024-07-03 16:25 | XMS_ITS | Encounter Summary ---
Author Organization [facility] Address [address] [place] [address] Phone Care Team Providers Care Projection Camera Operator Name Role Phone Kimberly Navarrete MD Primary Care Provider Rachele Daley OT Unavailable [phone] Ruthie Armas AUTO DETAILER Unavailable [phone] Ruthie Calderon NP Primary Care Provider Liam FONTAINE MD, Yaw Willis Unavailable Linda Brar MD Primary Care Provid er Encounter Details Date Type Department Care Team (Late st Contact Info) Description 02/06/2021 Telephone [facility] Orthopaedic Surgery [address] [facility] [address] [facility] [address] [place] [address] [place] [address] Yahaira Hdez MD [address] [facility] [facility] [address] [place] [address] Social History Tobacco Use Types Packs/Day Years Used Date Smoking Tobacco: Former Pipe Q uit: 1979 Smokeless Tobacco: Never Alcohol Use Standard Drinks/Week Comments Yes 0 (1 standard drink = 0.6 oz pur e alcohol) Occasionally PHQ-2 Answer Date Recorded PHQ-2 Total Score (If total score is 3 or more points, staff should administer the PHQ-9) 0 12/12/2020 Sex and Gender Information Value Date Recorded Sex Assigned at Not on file 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 Gender Identity Male 09/01/2020 11:55 AM CDT [...] documented as of this encounter Care Teams Projection Camera Operator Relationship Specialty Start Date End Date Kimberly Navarrete MD PCP - General Internal Medicine 10/26/18 02/23/21 Ruthie Calderon, JUNE PCP - General Nurse Practitioner 02/24/21 06/07/24 Linda Brar MD [address] [address] PCP - General Geriatric Medicine 06/11/24 Rachele Daley OT Occupational Therapist Occupational Therapy 05/19/20 1 05/15/20 Ruthie Armas, DUDLEY Speech Language Pathologist Speech Therapy 05/29/20 02/12/21 [place] [address] [address] Referring Physician Urology 02/17/22 documented as of this encounter
--- OUTSIDE RECORDS SUMMARY | 2024-07-03 16:25 | XMS_ITS | Encounter Summary ---
Author Organization [facility] Address [address] [place] [address] Care Team Providers Care Casino Porter Name Role Phone Kimberly Navarrete MD Primary Care Provider Encounter Details Date Type Department Care Team (Late st Contact Info) Description 08/23/2022 Telephone [facility] SCHEDULING [address] [place] [address] Yaw Wheeler MD Social History Tobacco Use Types Packs/Day Years Used Date Smoking Tobacco: Former Pipe Smokeless Tobacco: Never Comments:quit 1979 Alcohol Use Standard Drinks/Week Comments Yes 0 (1 standard drink = 0.6 oz pur e alcohol) RARELY Sex and Gender Information Value Date Recorded Sex Assigned at Male 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 [facility] does not reschedule for this appt type. Please contact pt and reschedule. documented in this encounter Plan of Treatment Not on file documented as of this encounter Visit Diagnoses Not on filedocumented in this encounter Additional Health Concerns Infection Onset Date Last Indicated Resolved Time COVID-19 Under Investigation 11/20/2023 11/20/2023 11/20/2023 10:51 PM CDT COVID-19 Confirmed 11/20/2023 11/20/2023 4:33 AM CDT documented as of this encounter Care Teams Casino Porter Relationship Specialty Start Date End Date Kimberly Navarrete MD PCP - General 07/17/17 documented as of this encounter
--- OUTSIDE RECORDS SUMMARY | 2024-07-03 16:25 | XMS_ITS | Patient Health Record ---
Author Organization [facility] Address [address] [facility] [address] [place] [address] Care Team Providers Care Food And Beverage Manager Name Role Phone Ro Clemente Unavailable [phone] Allergies No Known Allergies Reason For Referral No Information Medications Medication SIG (Take, Route, Frequency, Duration) Notes Start Date End Date Status Divalproex Sodium ER 500 MG 1 tablet Orally twice daily for 90 days 03/26/2024 09/22/2024 Active QUEtiapine Fumarate 25 MG 1 tablet Oral Once a day for 90 days in the morning 03/21/2024 Active Lisinopril 30 MG 1 tablet Orally Once a day Active Lancets Active Pantoprazole Sodium 40 MG 1 tablet 1/2 t o 1 hour before morning meal Orally Once a day Active Multivitamin Active Divalproex Sodium 500 MG 1 tablet Orally Twice a day for 90 days Active QUEtiapine Fumarate 100 MG 1 tablet Orally Once a day for 90 days at bedtime Active Finasteride 5 MG 1 tablet Orally Once a day Active Colace 100 MG 1 capsule as needed Orally Once a day Active Tamsulosin HCl 0.4 MG 1 capsule Orally O nce a day Active Memantine HCl 5 mg TAKE 1 TABLET DAILY Active Clopidogrel Bisulfate 75 MG 1 tablet Orally Once a day Active Social History Tobacco Use: Social History Observation Description Date Details (start date - stop date) Former Smoker NA - NA Sex Assigned At : Social History Observation Description Sex Assigned At Male Tobacco Control (Standard) Question Answer Notes Tobacco use: Former smoker AUDIT-C (Standard) Question Answer Notes Points 1 Did you have a drink contain ing alcohol in the past year? Yes How often did you have six o r more drinks on one occasion in the past year? Never (0 point) How many drinks did you have on a typical day when you were drinking in the past year? 1 or 2 drinks (0 point) How often did you have a dri nk containing alcohol in the past year? Monthly or less (1 point) Problems Problem Type SNOMED Code ICD Code Onset Dates Problem Status W/U Status Risk Notes Problem 792450002 Bipolar 1 disorder (F31.9) Active confirmed Problem [id number] Severe dementia with mood disturbance, unspecified dementia type (F03.C3) Active confirmed Vital Signs Heart Rate 81 /min 03/21/2024 Blood pressure diastolic 92 mm Hg 03/21/2024 Weight-kg 78.93 kg 03/21/2024 Blood pressure systolic 159 mm Hg 03/21/2024 Weight 174 lbs 03/21/2024 Encounters Encounter Location Date Provider Diagnosis [facility] ([facility] [place] [id number] [facility] [address] [address] 03/21/2024 Ro Clemente 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 Z79.899 ; Severe dementia with mood disturbance, unspecified dementia type F03.C3 and Bipolar 1 disorder F31.9 [facility] ([facility]) [address] [address] 03/22/2024 Ro Clemente [facility] ([facility]) [address] [address] 03/21/2024 Ro Clemente 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 Dementia SLUMS today 5 No history of treatment, diagnosed earlier this year while in hospital -Start Memantine 5mg daily; increase as tolerated 2. Bipolar disorder did not get treated until post stroke. Historically symptoms present prior to stroke per ; symptoms were exacerbated following stroke. -cont Depakote 500mg BID -cont quetiapine 100mg qHS -start quetiapine 25mg qAM for agitation, mood stabilization throughout day Most recent VPA level- 33 09/2023 LABS ORDERED TODAY 03/21/2024 Severe dementia with mood disturbance, unspecified dementia type (ICD-10 - F03.C3) Start memantine 5mg daily 1. Dementia SLUMS today 5 No history of treatment, diagnosed earlier this year while in hospital -Start Memantine 5mg daily; increase as tolerated 2. Bipolar disorder did not get treated until post stroke. Historically symptoms present prior to stroke per ; symptoms were exacerbated following stroke. 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 Common side effects Nausea or vomiting; Headache; Drowsiness or dizziness; Tremor; Muscle weakness; Insomnia; Hair loss; Weight gain; Diarrhea or abdominal pain Rare/serious side effects Liver problems Low platelets. Platelets help the blood to clot. Bruising easier than normal is a symptom of low platelets Pancreatitis (inflammation of the pancreas). Symptoms of pancreatitis include severe stomach pain, nausea, vomiting, and not feeling hungry Increased ammonia levels. If this happens, you may get confused, disoriented, or have difficulty thinking. Studies have found that individuals who take antiepileptic medications including valproate have suicidal thoughts or behaviors up to twice as often than individuals who take placebo (inactive medication). These thoughts or behaviors occurred in approximately 1 in 500 patients taking the antiepileptic class of medications. If you experience any thoughts or impulses to hurt yourself, you should contact your doctor immediately. Are There Any Risks For Taking Valproate For Long Periods Of Time? To date, there are no known problems associated with prison use of valproate. It is a safe and effective medication when used as directed. It is important to note that some of the side effects listed above (particularly changes in platelets, liver or pancreas problems, and suicidal thoughts) may continue to occur or worsen if you continue taking the medication. It is important to follow up with your doctor for blood work and to contact your doctor immediately if you notice abdominal pain, sudden nausea or vomiting, or changes in mood or behavior. For females, depakote is contraindicated in due to risk of neural tube defects. Co-current control is recommended while receiving treatment with depakote if child bearing age. Second generation antipsychotics (SGAs) have metabolic syndrome issues with weight gain, increase in prolactin, increased waist circumference, increased lipids, and increased glucose. Thus routine monitoring of weight, metabolic labs, etc. is indicated. A general rank ordering of antipsychotics that have the greatest to the least risk of metabolic effects is olanzapine, quetiapine, risperidone, ziprasidone, and aripiprazole. However, weight gain can occur with all of these drugs and considerable variability exists among patients receiving the same drug regarding the risk of metabolic effects. Anti-psychotic agents not only increase the risk of metabolic disorder, they also increase the risk of CVA, akathisia, and movement disorders including EPS or tardive dyskinesia (more common with first generation antipsychotics) and more. 1. Dementia SLUMS today 5 No history of treatment, diagnosed earlier this year while in hospital -Start Memantine 5mg daily; increase as tolerated 2. Bipolar disorder did not get treated until post stroke. Historically symptoms present prior to stroke per ; symptoms were exacerbated following stroke. -cont Depakote 500mg BID -cont quetiapine 100mg qHS -start quetiapine 25mg qAM for agitation, mood stabilization throughout day Most recent VPA level- 33 09/2023 LABS ORDERED TODAY 03/21/2024 Other Start memantine 5mg daily for memory impairment Cont depakote 500mg BID Cont quetiapine 100mg qHS Start quetiapine 25mg qAM for mood, agitation Patient educated on all medications including potential benefits, side effects, risks. Educated on proper dosing schedule and importance of compliance. Labs ordered today -Assessment and treatment plan reviewed with patient. -Compliance with treatment plan importance discussed. -Discussed the risks/benefits of this medication -Discussed medication side effects. -Contact office if symptoms worsen. -Discussed that it can take up to 6-8 weeks to see full therapeutic effects of psychotropic medications. -Crisis prevention hotline 988. 1. Dementia SLUMS today 5 No history of treatment, diagnosed earlier this year while in hospital -Start Memantine 5mg daily; increase as tolerated 2. Bipolar disorder did not get treated until post stroke. Historically symptoms present prior to stroke per ; symptoms were exacerbated following stroke. -cont Depakote 500mg BID -cont quetiapine 100mg qHS -start quetiapine 25mg qAM for agitation, mood stabilization throughout day Most recent VPA level- 33 09/2023 LABS ORDERED TODAY Plan Of Treatment Pending Test Test Name Order Date Hemoglobin A1c 03/21/2024 Valproic Acid (Depakote),S 03/21/2024 Comp. Metabolic Panel (14) 03/21/2024 CBC 03/21/2024 Insurance Providers Payer Name Payer Address Payer Phone Subscriber Number Group Number Insured Name Patient Relationship to Insured Coverage Start Date Coverage End Date Medicare-I l Medicare [address] [place] [address] [id number] EVERMOSHE PUTNAM Self - patient is the insured Bc-Mi [address] [place] [address] [id number] MOSHE HAQUE Self - patient is the insured Medical (General) History Medical History History ICD Code Past Psychiatric History: Ps ychotic Episode,Major Depressive Episode,Bipolar Disorder abdominal aortic aneurysm: No atrial fibrillation: No chronic fatigue syndrome: No essential tremor: No hyperlipidemia: Yes hypertension: Yes Parkinson's disease: No restless leg syndrome: No stroke: Yes subdural hematoma: Yes type 1 diabetes mellitus: No type 2 diabetes mellitus: Yes vitamin B12 deficiency: No vitamin D deficiency: Yes Surgical History Surgery Date(Month/Year) Appendectomy brain surgery to remove blood clot cataract surgery both eyes brain surgery to place 2 shunts.
--- OUTSIDE RECORDS SUMMARY | 2024-07-03 16:25 | XMS_ITS | Encounter Summary ---
Author Organization [facility] Address [address] [place] [address] Phone Care Team Providers Care Hides Inspector Name Role Phone Julian Verde MD Primary Care Provider [phone] Rachele Daley OT Unavailable [phone] Ruthie Armas Unavailable [phone] Kimberly Navarrete MD Primary Care Provider Rachele Daley OT Unavailable [phone] Ruthie Armas Unavailable [phone] Ruthie Calderon NP Primary Care Provider Liam FONTAINE MD, Robert Clayton Unavailable Linda Brar MD Primary Care Provid er Encounter Details Date Type Department Care Team (Latest Contact Info) Description 04/02/2017 Orders Only [facility] CONVERSION Scanning, Provider Social History Tobacco Use Types Packs/Day Years Used Date Smoking Tobacco: Former Sex and Gender Information Value Date Recorded Sex Assigned at Not on file Legal Sex Male 7:29 AM DIRECT SERVICE PROVIDER Gender Identity Male 09/01/2020 11:55 AM CDT Sexual Orientation Straight 09/01/2020 11 :55 AM CDT documented as of this encounter Plan of Treatment Not on file documented as of this encounter Procedures Procedure Name Priority Date/Time Associated Diagnosis Comments VASCULAR LABORATORY REPORT 04/02/2017 11:20 AM DIRECT SERVICE PROVIDER documented in this encounter Results * VASCULAR LABORATORY REPORT (04/02/2017 11:20 AM DIRECT SERVICE PROVIDER) Anatomical Region Laterality Modality Ultrasound us Provider Scanning CV VASCULAR PROCEDURES Final R esult documented in this encounter Visit Diagnoses Not on filedocumented in this encounter Additional Health Concerns Infection Onset Date Last Indicated Resolved Time COVID: Suspected 08/16/2023 08/16/2023 08/16/2023 8:55 PM CDT documented as of this encounter Care Teams Hides Inspector Relationship Specialty Start Date End Date Julian Verde MD PCP - General 04/01/17 10/25/18 Kimberly Navarrete MD PCP - General Internal Medicine 10/26/18 02/23/21 Ruthie Calderon, JUNE PCP - General Nurse Practitioner 02/24/21 06/07/24 Linda Brar MD [address] [address] PCP - General Geriatric Medicine 06/11/24 Rachele Daley OT Occupational Therapist Occupational Therapy 10/24/18 1 Ruthie Armsa, DULDEY Speech Language Pathologist Speech Therapy 10/26/18 01/15/19 Rachele Daley OT Occupational Therapist Occupational Therapy 05/19/20 1 05/15/20 Ruthie Armas SLP Speech Language Pathologist Speech Therapy 05/29/20 02/12/21 Yaw Wheeler III, [place] [address] [address] Referring Physician Urology 02/17/22 documented as of this encounter
--- OUTSIDE RECORDS SUMMARY | 2024-07-03 16:25 | XMS_ITS | Encounter Summary ---
Author Organization [facility] Address [address] [place] [address] Care Team Providers Care Cow Puncher Name Role Phone Julian Verde MD Primary Care Provider Encounter Details Date Type Department Care Team (Latest Contact Info) Description 02/21/2018 Abstract [facility] , Moses Schwartz MD Social History Tobacco Use Types Packs/Day [...] on file documented as of this encounter Plan of Treatment Not on file documented as of this encounter Visit Diagnoses Not on filedocumented in this encounter Care Teams Cow Puncher Relationship Specialty Start Date End Date Julian Verde MD [address] [place] [address] PCP - General 06/21/16 documented as of this encounter
--- OUTSIDE RECORDS SUMMARY | 2024-07-03 16:26 | XMS_ITS | Encounter Summary ---
Author Organization [facility] Address [address] [facility] [place] [address] Care Team Providers Care Cloud Developer Name Role Phone Kimberly Navarrete MD Primary Care Provider Reason for Visit * Reason Onset Date Comments General 11/03/2018 c/b from PCP Encounter Details Date Type Department Care Team (Late st Contact Info) Description 11/03/2018 Telephone [facility] General Internal Medicine [address] [facility] [address] [place] [address] Kimberly Navarrete MD [address] [facility] [address] [place] [address] General (c/b from PCP) Social History Tobacco Use Types Packs/Day Years Used Date Smoking Tobacco: Former Pipe Smokeless Tobacco: Never Comments:quit 1979 Alcohol Use Standard Drinks/Week Comments No 0 (1 standard drink = 0.6 oz pur e alcohol) Sex and Gender Information Value Date Recorded Sex Assigned at Male 03/04/2022 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 Pt got on line and confirmed w/ TN. Today ate eggos w/ yogurt and stated my esophagus is full Per , does not always happen. TN confirmed w/ pt -Pt NOT in resp distress, nothing stuck in throat and able to swallow own salivaat this time. Pt states esophagus feels full at end of esophagus near sternum when experiences fullness.. Pt and pt concerned possible issue from esophagus to stomach and inquiring if should see a GI specialist but would like to discuss w/ MD Navarrete first. Pt inquiring if pt should go back on protonix. CB# [phone] Routed to provider for further review documented in this encounter Plan of Treatment Not on file documented as of this encounter Visit Diagnoses Not on filedocumented in this encounter Additional Health Concerns Infection Onset Date Last Indicated Resolved Time COVID-19 Under Investigation 11/20/2023 11/20/2023 11/20/2023 10:51 PM CDT COVID-19 Confirmed 11/20/2023 11/20/2023 4:33 AM CDT documented as of this encounter Care Teams Cloud Developer Relationship Specialty Start Date End Date Kimberly Navarrete MD PCP - General 07/17/17 documented as of this encounter
--- OUTSIDE RECORDS SUMMARY | 2024-07-03 16:26 | XMS_ITS | Encounter Summary ---
Author Organization [facility] Address [address] [facility] [place] [address] Care Team Providers Care Gallery Assistant Name Role Phone Kimberly Navarrete MD Primary Care Provider Encounter Details Date Type Department Care Team (Late st Contact Info) Description 11/01/2018 Lab Requisition [facility] [address] 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 Gender Identity Not on file Sexual Orientation Not on file documented as of this encounter Plan of Treatment Not on file documented as of this encounter Procedures Procedure Name Priority Date/Time Associated Diagnosis Comments DERMATOPATHOLOGY Routine 10/31/2018 12:0 0 AM CDT documented in this encounter Results * DERMATOPATHOLOGY (10/31/2018 12:00 AM CDT) Case Report Dermatopathology Report Case: [id number] Authorizing Provider: Chrissie Medina DO Collected: 10/31/2018 12:00 AM Pathologist: Elgin Sam MD Received: 11/01/2018 12:32 PM Specimen: Skin, left medial buttock 4:27 PM CDT DERMATOPATHOLOGY LABORATORY Final Diagnosis Specimen A. 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 Non-healing, pink scaly papule. 4:27 PM CDT DERMATOPATHOLOGY LABORATORY Gross Description Specimen A: Received is one formalin filled container labeled with the patient's name and designated left medial buttock. The specimen consists of a shave measuring [id number]. Jar 0. 4:27 PM CDT DERMATOPATHOLOGY LABORATORY Microscopic Description Specimen A. SKIN, left medial buttock: There is a dome-shaped portion of skin with psoriasiform epidermal hyperplasia, compact hyperkeratosis, and fibrosis of the papillary dermis associated with a superficial perivascular lymphohistiocytic infiltrate. 4:27 PM CDT DERMATOPATHOLOGY LABORATORY Disclaimer An external and internal positive and negative controls are appropriate for the histochemical, immunohistochemical and immunofluorescence stain(s) in this case (if any), except where stated explicitly. The performance characteristics of the stain(s) cited in this report were developed and its performance characteristic determined by the Dermatopathology Laboratory at [facility], directed by Dr. Sherry Sam. These tests need not be, and therefore are not, approved by the [place] Food and Drug Administration. The tests are used for clinical purposes. Billing Codes Specimen Charges Stain Charges 97777 1 4:27 PM CDT DERMATOPATHOLOGY LABORATORY Embedded Images 4:27 PM CDT DERMATOPATHOLOGY LABORATORY Pathology/Cytolog y TISSUE SPECIMEN FROM SKIN / Unknown 10/31/2018 11/01/2018 12:32 PM CDT Chrissie Bond Adam DO LAB - PATHOLOGY/C YTOLOGY ORDERABLES DERMATOPATHOLOGY LABORATORY [facility] - Department of Dermatology [address] [facility]th Floor Lab [address] [place], [place] [id number] [place] [address] documented in this encounter Visit Diagnoses Not on filedocumented in this encounter Additional Health Concerns Infection Onset Date Last Indicated Resolved Time COVID-19 Under Investigation 11/20/2023 11/20/2023 11/20/2023 10:51 PM CDT COVID-19 Confirmed 11/20/2023 11/20/2023 4:33 AM CDT documented as of this encounter Care Teams Gallery Assistant Relationship Specialty Start Date End Date Kimberly Navarrete MD PCP - General 07/17/17 documented as of this encounter
--- OUTSIDE RECORDS SUMMARY | 2024-07-03 16:26 | XMS_ITS | Continuity of Care Document ---
Author Name Auto Generated, Auto Generated Organization [facility] Support Name Relationship Address Phone Anette Soto Emergency Contact [address] [place] [address] [place], Anette PO[employer] Financial [address] [place] [address] Floyd (Lavelle), Liset Daughter [address] [place] [address] Unavailable Lyndon Soto Son [address] [place] [address] Unavailable Jesus Soto Self Unknown [phone] Forguson, Anette Financial Responsibl e [employer] [address] [facility] [place] [address] For[place]on, Anette [employer] [address] [facility] [place] [address] For[place]on, Anette Spouse [address] [facility] [place] [address] Floyd (Lavelle), Liset Emergency Contact [address] [place] [address] Unavailable Lyndon Soto Statement Copy [address] [place] [address] Unavailable Rosie Soto [id number] [address] [place] [address] Unavailable Luis F Valderrama Son-in-Law [address] [place] [address] Unavailable Summary Purpose Consult/Referral Allergies, Adverse Reactions, Alerts Type Description/Agent Code Date Allergy Active Date Allergy Inactivated Date of Last Reaction Adverse Reactions Severity Status Comments Source of Information [employer] No Known Allergies Active Patient History Medications No Known Medications Conditions/Problems Problem/Diagnosis Awareness of Diagnosis Code (ICD-10) Onset Date (Start Date) Resolution Date (End Date) Status Source Comments 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.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 Conor montes MD [facility] HEMIPLEGIA AND HEMIPARESIS FOLLOWING UNSPECIFIED CEREBROVASCULAR DISEASE AFFECTING LEFT DOMINANT SIDE I69.952 Active Solange montes MD [facility] CEREBRAL INFARCTION, UNSPECIFIED I63.9 Active Solange montes MD [facility] DYSPHAGIA, OROPHARYNGEAL PHASE R13.12 Active Solange montes MD [facility] MUSCLE WEAKNESS (GENERALIZED) M62.81 Active Solange montes MD [facility] UNSTEADINESS ON FEET R26.81 Active Solange montes MD [facility] WEAKNESS R53.1 Active Solange montes MD [facility] PERSONAL HISTORY OF NICOTINE DEPENDENCE Z87.891 Active Solange montes MD [facility] PERSONAL HISTORY OF MALIGNANT NEOPLASM, UNSPECIFIED Z85.9 Conor montes MD [facility] MIXED HYPERLIPIDEMIA E78.2 Active Solange montes MD [facility] OTHER SEIZURES G40.89 Active Solange montes MD [facility] HYPERTENSIVE CHRONIC KIDNEY DISEASE WITH STAGE 1 THROUGH STAGE 4 CHRONIC KIDNEY DISEASE, OR UNSPECIFIED CHRONIC KIDNEY DISEASE I12.9 Conor montes MD [facility] TYPE 2 DIABETES MELLITUS WITH DIABETIC CHRONIC KIDNEY DISEASE E11.22 Conor montes MD [facility] RETIREMENT (CURRENT) USE OF ORAL HYPOGLYCEMIC DRUGS Z79.84 Conor montes MD [facility] BENIGN PROSTATIC HYPERPLASIA WITHOUT LOWER URINARY TRACT SYMPTOMS N40.0 Conor montes MD [facility] CEREBRAL CYSTS G93.0 Conor montes MD [facility] (IDIOPATHIC) NORMAL PRESSURE HYDROCEPHALUS G91.2 Conor montes MD [facility] PERSONAL HISTORY OF URINARY (TRACT) INFECTIONS Z87.440 Conor montes MD [facility] CHRONIC KIDNEY DISEASE, STAGE 3A N18.31 Active Solange montes MD [facility] 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 Active Solange montes MD [facility] ANEMIA IN CHRONIC KIDNEY DISEASE D63.1 024 Active Solange montes MD [facility] UNSPECIFIED URINARY INCONTINENCE R32 Active Solange montes MD [facility] EMOTIONAL LABILITY R45.86 Active Solange montes MD [facility] DYSPHAGIA, UNSPECIFIED R13.10 018 Active Solange montes MD [facility] CEREBRAL INFARCTION DUE TO EMBOLISM OF LEFT MIDDLE CEREBRAL ARTERY I63.412 018 10/03/2023 Resolved Solange montes MD [facility] PNEUMONITIS DUE TO INHALATION OF FOOD AND VOMIT J69.0 018 10/03/2023 Resolved Solange montes MD [facility] ABNORMAL WEIGHT LOSS R63.4 018 10/03/2023 Resolved Solange montes MD [facility] DYSPHAGIA FOLLOWING CEREBRAL INFARCTION I69.391 018 Active Solange montes MD [facility] ENCOUNTER FOR SURGICAL AFTERCARE FOLLOWING SURGERY ON THE CIRCULATORY SYSTEM Z48.812 018 10/03/2023 Resolved Solange montes MD [facility] PRESENCE OF OTHER VASCULAR IMPLANTS AND GRAFTS Z95.828 018 Active Solange montes MD [facility] ENCOUNTER FOR SURGICAL AFTERCARE FOLLOWING SURGERY ON THE DIGESTIVE SYSTEM Z48.815 018 10/03/2023 Resolved Solange montes MD [facility] GASTROSTOMY STATUS Z93.1 Active Solange montes MD [facility] PNEUMONIA DUE TO HEMOPHILUS INFLUENZAE J14 018 10/03/2023 Resolved Solange montes MD [facility] ESSENTIAL (PRIMARY) HYPERTENSION I10 Active Solange montes MD [facility] TYPE 2 DIABETES MELLITUS WITHOUT COMPLICATIONS E11.9 018 Active Solange montes MD [facility] HYPERLIPIDEMIA, UNSPECIFIED E78.5 018 10/03/2023 Resolved Solange montes MD [facility] GASTRO-ESOPHAGEAL REFLUX DISEASE WITHOUT ESOPHAGITIS K21.9 Conor montes MD [facility] ACUTE EMBOLISM AND THROMBOSIS OF RIGHT FEMORAL VEIN I82.411 10/03/2023 Yadira montes MD [facility] RN LICENSED PRACTICAL (CURRENT) USE OF ASPIRIN Z79.82 018 Conor montes MD [facility] RN LICENSED PRACTICAL (CURRENT) USE OF ANTITHROMBOTICS/ANTIP LATELETS Z79.02 018 Conor montes MD [facility] RETIREMENT (CURRENT) USE OF INSULIN Z79.4 Conor montes MD [facility] PERSONAL HISTORY OF OTHER VENOUS THROMBOSIS AND EMBOLISM Z86.718 Conor montes MD [facility] Procedures No Known Procedures
--- OUTSIDE RECORDS SUMMARY | 2024-07-03 16:26 | XMS_ITS | Encounter Summary ---
Author Organization [facility] Address [address] [place] [address] Phone Care Team Providers Care Transportation Supervisor Name Role Phone Liam FONTAINE MD, Yaw Willis Unavailable Linda Brar MD Primary Care Provid er Encounter Details Date Type Department Care Team (Late st Contact Info) Description 06/15/2024 Telephone [facility] Orthopaedic Surgery [address] [facility] Advanced Medicine 12th [place] [address] [place] [address] Yahaira Hdez MD [address] [facility] [address] [place], [place] [id number] Social History Tobacco Use Types Packs/Day Years Used Date Smoking Tobacco: Former Pipe 1 965 - 1979 Passive Smoke Exposure: Past Smokeless Tobacco: Never Alcohol Use Standard Drinks/Week Comments Yes 0 (1 standard drink = 0.6 oz pur e alcohol) Occasionally [facility] Utilities Answer Date Recorded In the past 12 months has [employer] electric, gas, oil, or water company threatened to shut off services in your home? No 09/04/2023 Social Connection and Isolat ion Panel [NHANES] Answer Date Recorded In a typical week, how many times do you talk on the phone with family, friends, or neighbors? More than three times a week 09/04/2023 How often do you get togethe r with friends or relatives? Once a week 09/04/2023 How often do you attend chur ch or samaritan services? 1 to 4 times per year 09/04/2023 Do you belong to any clubs o r organizations such as congregational groups, unions, fraternal or athletic groups, or school groups? No 09/04/2023 How often do you attend meet ings of the clubs or organizations you belong to? Never 09/04/2023 Are you , , di vorced, , never , or living with a partner? 09/04/2023 AUDIT-C Answer Date Recorded Q1: How often do you have a drink containing alc ohol? Monthly or less 04/05/2024 Q2: How many drinks containi ng alcohol do you have on a typical day when you are drinking? 1 or 2 04/05/2024 Q3: How often do you have si x or more drinks on one occasion? Never 04/05/2024 Overall Financial Resource Strain (CARDIA) Answe r Date Recorded How hard is it for you to pa y for the very basics like food, housing, medical care, and heating? Not very hard 09/04/2023 PHQ-2 Answer Date Recorded PHQ-2 Total Score 2 08/20/2023 Hunger Vital Sign Answer Date Recorded Within the past 12 months, y ou worried that your food would run out before you got the money to buy more. Never true 09/04/19 24 Within the past 12 months, t he food you bought just didn't last and you didn't have money to get more. Never true 09/04/2023 PRAPARE - Transportation Answer Date Re corded In the past 12 months, has l ack of transportation kept you from medical appointments or from getting medications? No 08/16 In the past 12 months, has l ack of transportation kept you from meetings, work, or from getting things needed for daily living? No 09/04/2023 Housing Stability Vital Sign Answer Kishor e Recorded In the last 12 months, was t here a time when you were not able to pay the mortgage or rent on time? Patient unable to answer 09/01/2023 In the last 12 months, how m any places have you lived? 1 09/01/2023 In the last 12 months, was t here a time when you did not have a steady place to sleep or slept in a half-way (including now)? Patient unable to answer 09/01/2023 PHQ-9 Answer Date Recorded PHQ-9 Total Score 2 08/20/2023 Housing Stability Vital Sign Answer Kishor e Recorded In the last 12 months, was t here a time when you were not able to pay the mortgage or rent on time? Patient unable to answer 09/05/2023 In the past 12 months, how m any times have you moved where you were living? 0 09/05/2023 At any time in the past 12 m onths, were you homeless or living in a half-way (including now)? Patient unable to answer 09/05/2023 Personal Safety Answer Date Recorded Have you ever been in or are you currently in a harmful physical or emotional relationship or is someone making you feel afraid or unsafe? Denies 09/03/2023 Sex and Gender Information Value Date Recorded Sex Assigned at Not on file Legal Sex Male 7:29 AM OPEN HEARTH LABORER Gender Identity Male 09/01/2020 11:55 AM CDT Sexual Orientation Straight 09/01/2020 11 :55 AM CDT documented as of this encounter Miscellaneous Notes * Telephone Encounter - Rivka Matos CMA - 06/15/2024 2:01 PM OPEN HEARTH LABORER I called the pt's [facility] and spoke to Lilia. The pt is scheduled w/ Dr. Hdez for a new pt appt. Lilia asked if I spoke to the pt's , I told her I called her first but there was no answer. If wants to reschedule, she will call. clt HEARTH LABORER * Telephone Encounter - Rivka Matos CMA - 06/15/2024 2:00 PM OPEN HEARTH LABORER I tried calling the pt's to schedule a New pt appt w/ Dr. Hdez per a referral from Dr. Colbert.No answer, LVM to return my call to schedule. clt HEARTH LABORER documented in this encounter Plan of Treatment Not on file documented as of this encounter Visit Diagnoses Not on filedocumented in this encounter Care Teams Transportation Supervisor Relationship Specialty Start Date End Date Linda Brar MD [address] [facility] GENERAL MED, [facility] [address] [place] [address] PCP - General Geriatric Medicine 06/11/24 [place], [place] [address] [facility] [address] [place] [address] Referring Physician Urology 02/17/22 documented as of this encounter
--- OUTSIDE RECORDS SUMMARY | 2024-07-03 16:26 | XMS_ITS | Encounter Summary ---
Author Organization [facility] Address [address] [place] [address] Phone Care Team Providers Care Hosiery Mender Name Role Phone Kimberly Navarrete MD Primary Care Provider Rachele Daley OT Unavailable [phone] Ruthie Armas SUPERVISOR AIRPLANE FLIGHT ATTENDANT Unavailable [phone] Ruthie Calderon NP Primary Care Provider Liam FONTAINE MD, Yaw Willis Unavailable Linda Brar MD Primary Care Provid er Encounter Details Date Type Department Care Team (Latest Contact Info) Description 12/12/2019 Orders Only [facility] Scanning, Provider Social History Tobacco Use Types Packs/Day Years Used Date Smoking Tobacco: Former Alcohol Use Standard Drinks/Week Comments Not Currently 0 (1 standard drink = 0.6 oz pur e alcohol) PHQ-2 Answer Date Recorded PHQ-2 Total Score (If total score is 3 or more points, staff should administer the PHQ-9) 5 09/17/2019 Sex and Gender Information Value Date Recorded Sex Assigned at Not on file Legal Sex Male 7:29 AM SAW [employer] FUSER [employer]CULAR Gender Identity Male 09/01/2020 11:55 AM CDT Sexual Orientation Straight 09/01/2020 11 :55 AM CDT documented as of this encounter Plan of Treatment Not on file documented as of this encounter Procedures Procedure Name Priority Date/Time Associated Diagnosis Comments SCAN - LABS 12/12/2019 CARDIOLOGY DOCUMENT SCAN 12/12/2019 documented in this encounter Results * SCAN - LABS (12/12/2019) us Provider Scanning Edited Result - Final * SCAN - CARDIOLOGY (12/12/2019) Anatomical Region Laterality Modality Other us Provider Scanning CV CARDIAC SERVICES PROCEDURES Final Result documented in this encounter Visit Diagnoses Not on filedocumented in this encounter Additional Health Concerns Infection Onset Date Last Indicated Resolved Time COVID: Suspected 08/16/2023 08/16/2023 08/16/2023 8:55 PM CDT documented as of this encounter Care Teams Hosiery Mender Relationship Specialty Start Date End Date Kimberly Navarrete MD PCP - General Internal Medicine 10/26/18 02/23/21 Ruthie Calderon, JUNE PCP - General Nurse Practitioner 02/24/21 06/07/24 Linda Brar MD [address] [address] PCP - General Geriatric Medicine 06/11/24 Rachele Daley OT Occupational Therapist Occupational Therapy 05/19/20 1 05/15/20 Ruthie Armas, DUDLEY Speech Language Pathologist Speech Therapy 05/29/20 02/12/21 [place] [address] [address] Referring Physician Urology 02/17/22 documented as of this encounter
--- OUTSIDE RECORDS SUMMARY | 2024-07-03 16:26 | XMS_ITS | Clinical Summary ---
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 Name Role Phone Liam FONTAINE MD, Y[facility] Linda Brar MD Primary Care Provid er Allergies Active Allergy Reactions Criticality Noted Date Comments Nitrofurantoin Nausea And Vomiting Medium 02/13/2018 Sulfamethoxazole-Trimethoprim Nausea And Vomiting Medium 07/14/2017 Medications multivitamin-mi nerals-lutein tabletIndicatio ns:Supplement Take 1 tablet by mouth daily after breakfast Active docusate sodium (COLACE) 100 mg capsuleIndicati ons:constipatio n Take 1 capsule (100 mg total) by mouth 2 (two) times a day as needed for constipation Active ketoconazole (NIZORAL) 2 % creamIndication s:cutaneous candidiasis Apply 1 Application topically daily as needed for itching 11/01/19 20 Active hydrocortisone 2.5 % ointmentIndicat ions:Skin Inflammation Apply 1 Application topically 2 (two) times a day as needed for irritation 10/15/19 19 Active lancing device with lancets (Accu-Chek Multiclix Lancet) kitIndications: Type 2 diabetes mellitus without complication, without long-term current use of insulin (HCC) 1 Lancet daily 1 kit 1 06/03/19 24 Active blood-glucose meter (Accu-Chek Ching) miscIndications :Type 2 diabetes mellitus without complication, without long-term current use of insulin (HCC) Use as directed to check blood glucose daily 1 each 1 06/03/19 24 Active lancets misc 100 each by other route daily 100 each 3 06/03/19 24 Active cholecalciferol (Vitamin D3) 2000 unit tabletIndicatio ns:Osteoporosis ,Vitamin D Deficiency Take 1 tablet (2,000 Units total) by mouth every morning Active triamcinolone (KENALOG) 0.1 % creamIndication s:Rash and nonspecific skin eruption Apply to affected area twice daily to lower legs 80 g 1 07/14/19 24 2024 Active acetaminophen (TYLENOL) 325 mg tablet Take 2 tablets (650 mg total) by mouth every 4 (four) hours as needed for pain 08/07/19 24 Active clopidogreL (PLAVIX) 75 mg tablet TAKE 1 TABLET DAILY 90 tablet 2 12/21/19 24 Active nystatin powder Apply topically 2 (two) times a day 12/20/19 24 Active venlafaxine XR (EFFEXOR-XR) 150 mg 24 hr capsule Take 1 capsule (150 mg total) by mouth daily 30 capsule 01/05/20 24 Active finasteride (PROSCAR) 5 mg tabletIndicatio ns:benign prostatic hyperplasia with lower urinary tract sx Take 1 tablet (5 mg total) by mouth every morning 90 tablet 1 01/09/20 24 Active tamsulosin (FLOMAX) 0.4 mg extended release capsuleIndicati ons:benign prostatic hyperplasia with lower urinary tract sx Take 1 capsule (0.4 mg total) by mouth every morning 90 capsule 1 01/09/[address] (PROTONIX) 40 mg EC tablet Take 1 tablet (40 mg total) by mouth daily 90 tablet 1 01/09/20 24 Active QUEtiapine (SEROquel) 100 mg tablet TAKE 1 TABLET NIGHTLY 90 tablet 02/09/20 24 Active Additional Information Patient not taking.Reported on 05/14/2024 divalproex ER (DEPAKOTE ER) 500 mg 24 hr tablet TAKE 1 TABLET TWICE A DAY 180 tablet 02/09/20 24 Active memantine (NAMENDA) 5 mg tablet 03/21/20 24 Active QUEtiapine (SEROquel) 25 mg tablet 03/21/20 24 Active lisinopriL (PRINIVIL,ZESTR IL) 40 mg tablet Take 1 tablet (40 mg total) by mouth daily 90 tablet 1 04/05/20 24 2024 Active risperiDONE (RisperDAL) 0.5 mg tablet 05/10/19 25 Active atorvastatin (LIPITOR) 80 mg tabletIndicatio ns:Mixed hyperlipidemia, Hyperlipidemia LDL goal <70,Medication dose increased Take 1 tablet (80 mg total) by mouth nightly 90 tablet 3 05/15/19 25 Active blood glucose diagnostic (Accu-Chek Guide test strips) stripIndication s:Type 2 diabetes mellitus without complication, without long-term current use of insulin (HCC) USE TO CHECK BLOOD SUGAR ONCE DAILY 100 strip 06/23/19 25 Active blood glucose diagnostic (Accu-Chek SmartView Test Strip) stripIndication s:Type 2 diabetes mellitus without complication, without long-term current use of insulin (HCC) Check blood sugar once daily 100 strip 3 06/03/19 24 2024 Discontinued Active Problems Problem Noted Date Diagnosed Date Vascular dementia with psychotic disturbance Assessment & Plan (01/05/2024 3:00 PM CDT): -current delusional thoughts of wanting repossession of his gun to go skeet shooting -no current SI or HI thoughts -establish with psychiatrist, referral given Headache 09/03/2023 Aphasia 08/31/2023 Bipolar and related disorder due to another medical condition, with manic features 08/19/2023 Assessment & Plan (01/05/2024 3:01 PM CDT): -establish with psych Normal pressure hydrocephalus 08/19/2023 AMS (altered mental status) 08/18/2023 Altered mental status, unspe cified altered mental status type 08/16/2023 Arachnoid cyst 08/05/2023 Gait disturbance 06/02/2023 Personality change 06/02/2023 Assessment & Plan (06/02/2023 7:17 PM ORDNANCE KEEPER): -due to recent changes including personality change, increased emotional lability and gait disturbance check brain MRI -follow up with neurologist as scheduled, sooner as appropriate based on MRI findings -check vitamin b 12 -recent urine studies without UTI -follow with psych as scheduled, continue current medications -resume OT, ordered Emotional lability 06/02/2023 Left leg swelling 06/02/2023 Assessment & Plan (07/14/2023 12:33 PM CDT): -no signs of acute infection ongoing -chronic changes c/w venous stasis dermatitis noted to bilateral LE -recommend use of triamcinolone cream bid and use of compression stockings Assessment & Plan (06/30/2023 4:46 PM CDT): -concern for LE cellulitis, L > R (see photos) -completed 10 days of Augmentin on 06/16 -having ongoing redness and warmth to BLLE -VUS negative for DVT 06/03 -denies chills and fever -suspect chronic venous stasis dermatitis, venous insufficiency and acute cellulitis -treat with Augmentin bid PLUS doxycycline 100 mg bid x 10 days -recommend compression stockings -avoid having legs exposed while working in basement -trial triamcinolone cream daily -close monitoring for new or worsening sx, ER / urgent care precautions discussed -close follow up in two weeks Assessment & Plan (06/02/2023 7:15 PM ORDNANCE KEEPER): -sudden onset -4 cm discrepancy between calves -negative Pennie's sign -redness, warmth and diffuse swelling of LLE -check stat VUS to r/o acute DVT Left spastic hemiparesis 06/04/2022 Paul-inattention 06/04/2022 Impaired functional mobility, balance, gait, and endurance 06/04/2022 Assessment & Plan (06/02/2023 7:17 PM ORDNANCE KEEPER): -resume PT, ordered Neuromuscular dysfunction of bladder, unspecifie d 02/09/2022 Elevated alkaline phosphatase level 02/04/2022 Screening for colorectal cancer 02/04/2022 Assessment & Plan (02/04/2022 4:14 PM CDT): -previous colonoscopy was before stroke in 2017, no polyps at that time -declines repeating colonoscopy at this time, cologuard is reasonable - ordered Constipation 02/04/2022 Assessment & Plan (02/04/2022 4:32 PM CDT): -noted over recent weeks, etiology likely multi-factoral -improving with prn use of MOM, recommend using every other day -no abdominal pain or blood in stool -some mild nausea, ok with zofran prn for now -check TSH, recheck hepatic function -CT abdomen pelvis reasonable, ordered -increase fiber in diet, ensured adequate hydration Vitamin D deficiency, unspecified 02/04/2022 Stage 3a chronic kidney disease 01/07/2022 Frequent falls 11/26/2021 Assessment & Plan (11/26/2021 3:10 PM CDT): -three falls this week, none with +LOC, has not hit head -neurologically at baseline without focal deficit -no reported dizziness or other sx preceding falls -falls likely d/t multifactorial cause r/t recurrent UTI, hx of left sided hemiparesis, generalized deconditioning and weakness and poorly controlled T2DM -all times he has fallen are in the middle of the night while getting up to get water, recommend keeping water at bedside and not having patient get up on own without assistance -recommend home PT and in home aide to assist with ADLs, referral for [facility] / home health placed Generalized weakness 11/26/2021 Assessment & Plan (02/04/2022 4:27 PM CDT): -noted to be hypotensive on some home BP readings as well as today's clinic readings -some home readings into 80's/50's, most readings >100/50'70's -hold lisinopril 10 mg daily, continue amlodipine 5 mg daily for now - consider holding altogether if readings persistently <110/70 - his will call in one week with BP readings -fasting glucose ranging 116-212 over past month -check vitamin b and tsh -check CT abdomen and pelvis Recurrent UTI 11/26/2021 Assessment & Plan (01/07/2022 3:01 PM CDT): -recently completed cipro, following with [facility] -check UA Assessment & Plan (11/26/2021 3:13 PM CDT): -will complete Keflex tomorrow -recheck UA next week -follow with urology as scheduled Bilateral impacted cerumen 07/01/2021 Assessment & Plan (07/01/2021 4:49 PM CDT): -bilateral ear lavage performed today, tolerated well -consider use of debrox drops at home 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 08/01/2020 Spasticity as late effect of cerebrovascular acc ident (CVA) 08/01/2020 TIA (transient ischemic attack) 12/21/2019 Assessment & Plan (07/01/2021 4:52 PM CDT): -recent TIA, at baseline neurologically today -check UA and urine culture given recent and recurrent UTI, may benefit from prophylactic daily abx -encouraged follow-up with neurology team in near future -optimize blood pressure control -continue statin and clopidogrel Assessment & Plan (12/21/2019 3:17 PM CDT): -appears, neurologically, at baseline today -his blood pressure is well-controlled, his diabetes is poorly controlled - will work to optimize glucose control -strongly encouraged him to schedule a follow-up in the next week or two with his neurology group at [facility] -continue Plavix 75 mg daily, atorvastatin 40 mg nightly and amlodipine 5 mg daily -ER precautions discussed if any acute symptoms recur Dysphagia 09/17/2019 Sensorineural hearing loss (SNHL) of both ears 1 BPH (benign prostatic hyperplasia) 08/09/2017 HTN (hypertension) 04/24/2017 Assessment & Plan (04/05/2024 2:56 PM ORDNANCE KEEPER): -BP here today and at home running above goal -increase lisinopril to 40 mg daily -check BMP in 2 weeks Assessment & Plan (01/05/2024 2:56 PM CDT): -BP above goal -lisinopril was stopped while in hospital -restart lisinopril at 20 mg daily -stop amlodipine 2.5 mg daily -check BMP in 2-4 weeks -keep upcoming appointment with nephrology Assessment & Plan (06/02/2023 7:09 PM ORDNANCE KEEPER): -BP above goal today -increase lisinopril to 10 mg daily -check renal function and lytes Assessment & Plan (09/30/2022 1:50 PM CDT): -BP at goal -continue amlodipine 5 mg daily -check renal function Assessment & Plan (06/03/2022 1:21 PM ORDNANCE KEEPER): -blood pressure at goal on second reading -continue amlodipine 5 mg daily -check BMP Assessment & Plan (03/04/2022 2:32 PM ORDNANCE KEEPER): -BP at goal, continue amlodipine 5 mg daily -continue to hold lisinopril -check BMP Assessment & Plan (08/19/2021 2:42 PM CDT): -blood pressure now at goal, continue lisinopril 10 mg daily and amlodipine 5 mg daily -renal function and electrolytes wnl Assessment & Plan (07/01/2021 4:47 PM CDT): -blood pressure above goal, start Lisinopril 10 mg daily especially given T2DM -continue amlodipine 5 mg daily -check BMP -follow up in 4 weeks Assessment & Plan (04/02/2021 2:35 PM ORDNANCE KEEPER): -borderline control, continue amlodipine 5 mg daily -encouraged to monitor blood pressure at home a few times monthly and bring readings to next visit Assessment & Plan (12/21/2019 3:06 PM CDT): -blood pressure is well controlled, continue amlodipine 5 mg daily GERD (gastroesophageal reflux disease) 8 Hemiplegia and hemiparesis f ollowing cerebral infarction affecting left non-dominant side 04/24/2017 Assessment & Plan (12/21/2019 3:15 PM CDT): -discussed restarting PT / OT to help rebuild strength, he is not interested at this time Hyperlipidemia, unspecified 04/24/2017 Overview (01/31/2023): -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mg Assessment & Plan (12/21/2019 3:16 PM CDT): -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 mg retirement (current) use of antithrombotics/antip latelets 04/24/2017 retirement (current) use of aspirin 04/24/2017 Presence of other vascular implants and grafts 0 04/24/2017 Type 2 diabetes mellitus without complications 0 04/24/2017 Assessment & Plan (04/05/2024 2:56 PM ORDNANCE KEEPER): -check A1c -has previously had poor tolerance to several medications including Metformin and GLP1's due GI side effects -home fasting glucose with some high readings -continue ACEI and statin Assessment & Plan (01/05/2024 2:58 PM CDT): -A1c near goal -poor tolerance to Metformin and GLP1s due to GI side effects -continue with diet control, limiting simple carbs and sugar Assessment & Plan (06/02/2023 7:13 PM ORDNANCE KEEPER): -check A1c, last with fair control at 7.6% -adherent with jardiance 25mg daily -has recently restarted Metformin, tolerating well - continue -previously took rybelsus summer 2022, stopped after three days due to vomiting ; also previous intolerance to Trulicity -continue ACEI and statin -up to date with eye doctor and 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 Assessment & Plan (09/30/2022 1:54 PM CDT): -A1C above goal in May -fasting sugars running higher at home -check A1C now -educated to reduce simple carbs and sugar in diet -plan to likely add in Rybelsus, discussed possible side effects, await A1C result -continue statin -ACEI being held 2/2 low BP in past -up to date with eye doctor, has upcoming cataract surgery in November -up to date with 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 - still awaiting diabetic shoes Assessment & Plan (06/03/2022 1:23 PM ORDNANCE KEEPER): -check A1C, near goal in Fall 2021 -continue statin, off ACEI d/t low BP last fall -needs to see eye doctor in near future -follows with podiatry every 3 months, having diabetic shoe paperwork sent to our office for completion -needs shingrix, other vaccines up to date Assessment & Plan (03/04/2022 2:34 PM ORDNANCE KEEPER): -check A1C -currently taking Jardiance 25 mg daily -continue statin, consider restarting ACEI at low dose for renal protection -up to date with eye doctor -follows with podiatry q 3 months -PCV20 given today, needs Shingrix, otherwise vaccines up to date Assessment & Plan (01/07/2022 3:06 PM CDT): -continue jardiance, hold GLP1 Assessment & Plan (11/26/2021 3:11 PM CDT): -A1C above goal at 8.2% -recommend starting Trulicity 0.75 mg weekly, discussed possible side effects and administration of medication -if significant GI side effects persist after a few weeks his will notify me. If this occurs consider switching to Sitagliptin -continue Jardiance 25 mg daily -blood pressure at goal -continue ACEI and statin -up to date with eye exam, follows with podiatry q3 months -update vaccines with second covid booster, shingrix and PCV20 Assessment & Plan (08/19/2021 2:44 PM CDT): -A1C last month slightly above goal -focus on dietary improvements, namely reducing carbs -recheck A1C early October -continue Jardiance 25 mg daily -continue ACEI and statin -up to date with eye exam, follows with podiatry q3 months -update vaccines with second covid booster, shingrix and prevnar-13 Assessment & Plan (07/01/2021 4:49 PM CDT): -check A1C at lab -continue Jardiance 25 mg daily, would not recommend increasing dose d/t hx of UTI -continue statin -start ACEI -check renal function -up to date with eye exam, follows with podiatry q3 months -update vaccines with shingrix and prevnar-13 Assessment & Plan (04/02/2021 2:36 PM ORDNANCE KEEPER): -A1C at goal 7% in clinic today -continue Jardiance 25 mg daily, would not recommend increasing dose d/t hx of UTI -continue statin -up to date with eye exam, follows with podiatry q3 months -vaccines up to date Assessment & Plan (12/21/2019 3:11 PM CDT): -advised increasing Jardiance to 25 mg daily now -he has an order to check A1C previously placed per Dr. Navarrete, he will do this at the end of December / beginning of January -continue statin -he is not on ACEI / ARB for unclear reasons Acute embolism and thrombosis of right femoral v ein 04/24/2017 Nontraumatic intracerebral hemorrhage 03/26/2017 History of right MCA stroke 03/24/2017 Overview (12/21/2019): -March 2017 Assessment & Plan (04/29/2020 1:30 PM ORDNANCE KEEPER): - Will send Referral to [facility] clinic for botox injections. Patient has spastic left arm. MAS 3 - WIll discuss the addition of patient to next iteration of IpsiHand trial with Dr. 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 - Suggested multiple books to and patient to better understand deficits of R MCA stroke. 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 05/24/2017 08/01/2020 Encounters Date Type Department Care Team Description 06/18/2024 Orders Only [facility] Geriatric Medicine [address] [place] [address] [place] [address] Linda Brar MD 06/15/2024 Telephone [facility] Orthopaedic Surgery [address] [place] [address] [place] [address] Yahaira Hdez MD 06/11/2024 Telephone [facility] Complete Care [address] [place] [address] Medical Office [address] [place] [address] Missy Moe RN 05/22/2024 Documentation [facility] Surgery [address] [place] [address] [address] [place] [phone] Moon Shoemaker RMA 05/21/2024 4:18 PM ORDNANCE KEEPER - 05/21/2024 11:59 PM ORDNANCE KEEPER Hospital Encounter [facility] [address] [place] [address] Gross hematuria; Bladder wall thickening; Abnormal finding in urine Discharge Disposition: Discharge to home or self care 05/21/2024 2:40 PM ORDNANCE KEEPER [facility] - [facility] [address] [place] [address] [place] [address] Esperanza Marlow MD Gross hematuria (Primary Dx); Bladder wall thickening; Abnormal finding in urine 05/21/2024 12:29 PM ORDNANCE KEEPER - 05/21/2024 11:59 PM ORDNANCE KEEPER Hospital Encounter [facility] [address] [place] [address] Gross hematuria Discharge Disposition: Discharge to home or self care 05/15/2024 Orders Only [facility] Stroke [address] [facility] [address] [place] [address] Joshua Colbert NP Mixed hyperlipidemia (Primary Dx); Hyperlipidemia LDL goal <70; Medication dose increased 05/14/2024 9:30 PM ORDNANCE KEEPER Lab [facility] ([facility]) [address] [place] [phone] Hypertension, unspecified type; Type 2 diabetes mellitus without complication, without long-term current use of insulin (HCC) 05/14/2024 9:15 PM ORDNANCE KEEPER Lab [facility] ([facility]) [address] [place] [phone] Medication monitoring encounter; Primary hypertension 05/14/2024 3:30 PM ORDNANCE KEEPER Office Visit [facility] Stroke [address] [place] [address] [address] [place] [address] Joshua Colbert NP 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 (Primary Dx); Hemiplegia and hemiparesis following cerebral infarction affecting left non-dominant side (HCC); Primary hypertension; Mixed hyperlipidemia; Impaired functional mobility, balance, gait, and endurance; Medication monitoring encounter 04/05/2024 2:00 PM ORDNANCE KEEPER Office Visit [address] Medical Office [address] [place] [address] Ruthie Calderon NP Encounter for immunization (Primary Dx); Hypertension, unspecified type; Type 2 diabetes mellitus without complication, without long-term current use of insulin (HCC) from Last 3 Months Immunizations Immunization Administration Dates Next Due Influenza, Quadrivalent, Hig h Dose, Preservative Free, Intrr 01/27/2023,02/04/2022,04/02/2021,01/31 Influenza, Quadrivalent, Spl it, Preservative Free, Intramuscular 01/11/2019 Influenza, Trivalent, High D ose, Split, Preservative Free, Intramuscular 04/05/2024,01/11/2019 Influenza, Unspecified 01/06/2018,01/16/2017 Moderna SARS-CoV-2 Monovalen t Vaccination (12+ YRS) 07/18/2020,06/20/2020 PPD TEST 09/28/2023,09/07/2023,08/25/2023 Pfizer SARS-CoV-2 Monovalent Vaccination (12+ Yrs) PURPLE 02/19/2021 Pneumococcal Conjugate Pcv20 03/04/2022 Pneumococcal Polysaccharide PPV23 03/30/2017 Td, adsorbed 05/05/2023 Tdap 05/05/2023,08/04/2020 Tetanus Toxoid, Unspecified 05/05/2023 Surgical History Surgery Date Site/Laterality Comments BRAIN SURGERY after stroke ABDOMINAL SURGERY appendicitis APPENDECTOMY IR G TUBE PLACEMENT PERCUTANEOUS 03/29/2017 N/A CAROTID STENT 03/18/2017 - 04/17/2017 Right s/p mechanical thrombectomy and R ICA stent placement Medical History Medical History Date Comments Male erectile dysfunction Erecti le dysfunction - (Added by TW Conv) Enlarged prostate without lo wer urinary tract symptoms (luts) Benign prostatic hyperplasia - (Added by TW Conv) Personal history of other en docrine, nutritional and metabolic disease History of hyperlipi demia - (Added by TW Conv) Personal history of other di seases of the nervous system and sense organs History of tinnitu s - (Added by TW Conv) Personal history of other en docrine, nutritional and metabolic disease History of type 2 di abetes mellitus - Diet controlled (Added by TW Conv) Cancer (HCC) Diabetes mellitus (HCC) Dysphagia Neuromuscular disease or syndrome (HCC) Hypertension Incontinence Joint pain Seizures (HCC) Family History Medical History Relation Name Comments Epilepsy Brother Family history of epilepsy - Post-traumatic (Added by TW Conv) Transient ischemic attack Mother Mana bob history of transient ischemic attacks - (Added by TW Conv) Anesthesia problems Neg Hx Relation Name Status Comments Brother Mother Social History Tobacco Use Types Packs/Day Years Used Date Smoking Tobacco: Former Pipe 1 5 - 1979 Passive Smoke Exposure: Past Smokeless Tobacco: Never Tobacco Cessation:Counseling Given: Not Answered Alcohol Use Standard Drinks/Week Comments Yes 0 (1 standard drink = 0.6 oz pur e alcohol) Occasionally medineering Utilities Answer Date Recorded In the past 12 months has [facility], gas, oil, or water [employer] threatened to shut off services in your [...] often do you attend chur ch or sabianism services? 1 to 4 times per year 09/04/2023 Do you belong to any clubs o r organizations such as samaritan groups, unions, fraternal or athletic groups, or [...] place to sleep or slept in a halfway (including now)? Patient unable to answer 09/01/2023 [...] any time in the past 12 m [facility], were you homeless or living in a halfway (including now)? Patient unable to answer 09/05/2023 Personal Safety Answer Date Recorded Have you ever been in or are you currently in a harmful physical or emotional relationship or is someone making you feel afraid or unsafe? Denies 09/03/2023 Sex and Gender Information Value Date Recorded Sex Assigned at Not on file Legal Sex Male 7:29 AM ORDNANCE KEEPER Gender Identity Male 09/01/2020 11:55 AM CDT Sexual Orientation Straight 09/01/2020 11 :55 AM CDT Obstetrics History Last Filed Vital Signs Vital Sign Reading Time Taken Comments Blood Pressure 118/76 05/14/2024 3:25 PM ORDNANCE KEEPER Pulse 77 05/14/2024 3:25 PM ORDNANCE KEEPER Temperature 36.5 C (97.7 F) 04/05/2024 2:10 PM ORDNANCE KEEPER Respiratory Rate 16 04/05/2024 2:10 PM ORDNANCE KEEPER Oxygen Saturation 99% 04/05/2024 2:10 PM ORDNANCE KEEPER Inhaled Oxygen Concentration - - Weight 79.4 kg (175 lb) 05/14/2024 3:25 PM ORDNANCE KEEPER Height 177.8 cm (5' 10 ) 05/14/2024 3:25 PM ORDNANCE KEEPER Body Mass Index 25.11 05/14/2024 3:25 PM ORDNANCE KEEPER Plan of Treatment Health Maintenance Due Date Last Done Comments Dilated Eye Exam 1945 Foot Exam 1945 Hepatitis B Screening 1964 Zoster Vaccine (1 of 2) 1996 Covid-19 Vaccine (2023-2 5 season) 2023 02/05/2022, 02/05/2022, 02/19/2021, Additional history exists Albumin Creatinine Ratio, Urine 01/27/2024 3, 02/23/2021 Well Visit 65+ 01/28/2024 01/27/2023, 12/12/2020 Depression Screening 08/15/2024 08/16/2023, 01/27/2023, 12/12/2020, Additional history exists Fall Risk Assessment 09/05/2024 09/06/2023, 01/28/20 23 Hemoglobin A1C 11/11/2024 05/14/2024, 072 09/2023, 06/21/2023, Additional history exists Lipid Panel 05/14/2025 05/14/2024, 10/17, 01/26/2023, Additional history exists eGFR 05/14/2025 05/14/2024, 01/16, 01/31/2024, Additional history exists DTaP/Tdap/Td Vaccine (4 - Td or Tdap) 05/05/2033 05/05/2023, 05/05/2023, 08/04/2020 Abdominal Aortic Aneurysm (A AA) Screen Completed 02/16/2022 Pneumococcal vaccine 65+ Completed 03/04/2022, 03/18 Influenza Vaccine Completed 04/05/2024, , 02/04/2022, Additional history exists Hepatitis C Screening Discontinued Medical Devices Implanted Type Area Waste Management Engineer Device Identifier Shelf Expiration Date Model / Serial / Lot [employer] Cecilio Antibiotic Kit Catheter Sterile Latex Free [id number] - [id number] Implanted:Qty: 1 on 08/06/2023 by Luis Carlos Mcgill MD at [facility] Left: Brain [employer] [id number] 11/28/2024 [id number] / / [id number] [employer] Inline Siphonguard Valve Shunt [id number] - [id number] Implanted:Qty: 1 on 08/06/2023 by Luis Carlos Mcgill MD at [facility] Left: Brain [employer] [facility] [id number] / / Procedures Procedure Name Priority Date/Time Associated Diagnosis Comments POCT URINALYSIS DIPSTICK Routine 05/21/2024 4:25 PM ORDNANCE KEEPER Gross hematuria URINE CULTURE Routine 05/21/2024 4:18 PM ORDNANCE KEEPER Gross hematuria Bladder wall thickening Abnormal finding in urine CT UROGRAM Schedule Routine, Read Routine (OP Routine) 05/21/2024 2:07 PM ORDNANCE KEEPER Gross hematuria EGFR Routine 05/14/2024 5:14 PM ORDNANCE KEEPER Hypertension, unspecified type HEMOGLOBIN A1C Routine 05/14/2024 5:14 PM ORDNANCE KEEPER Type 2 diabetes mellitus without complication, without long-term current use of insulin (HCC) BASIC METABOLIC PANEL Routine 05/14/2024 5:14 PM ORDNANCE KEEPER Hypertension, unspecified type LIPID PANEL Routine 05/14/2024 5:14 PM ORDNANCE KEEPER Primary hypertension Medication monitoring encounter VALPROIC ACID LEVEL, TOTAL Routine 05/14/2024 5:14 PM ORDNANCE KEEPER Medication monitoring encounter ALBUMIN CREATININE RATIO, URINE Routine 01/26/2023 3:07 PM CDT Type 2 diabetes mellitus without complication, without long-term current use of insulin (HCC) CT ABDOMEN PELVIS W CONTRAST Schedule Routine, Read Routine (OP Routine) 02/16/2022 11:20 AM CDT Elevated alkaline phosphatase level Constipation, unspecified constipation type from Last 3 Months or Most Recently Relevant to Health Maintenance Results * (ABNORMAL) POCT urinalysis dipstick (05/21/2024 4:25 PM ORDNANCE KEEPER) Color, Urine, POC Yellow Clarity, ur, POC Cloudy(A) Clear Glucose, ur, POC Negative Negative MG/DL Ketones, ur, POC Negative Negative Blood, ur, POC 1+(A) Negative pH, ur, POC 5.0 5.0 - 8.0 Protein, ur, POC 1+(A) Negative Nitrite, ur, POC Negative Negative Leukocytes, ur, POC 2+(A) Negative Lot Number 0 Urine 05/21/2024 4:25 PM ORDNANCE KEEPER us Esperanza Marlow MD POINT OF CARE TEST ORDERABLES Fi nal Result * Urine culture Urine, clean voided (05/21/2024 4:18 PM ORDNANCE KEEPER) Report Final Report: Less than 100,000 colonies/mL (clinically insignificant growth based on current clinical standards) Organism (CLINICALLY INSIGNIFICANT GROWTH [facility] Urine, clean voided 05/21/2024 4:18 PM ORDNANCE KEEPER 05/21/2024 8:57 PM ORDNANCE KEEPER Narrative [facility] - 05/23/2024 8:07 AM ORDNANCE KEEPER Testing performed by [facility] ([phone]) us Esperanza Marlow MD LAB MICROBIOLOGY - GENERAL ORDER JESSICA Final Result [facility] Department [place] [address] * CT Urogram WO 3D (05/21/2024 2:07 PM ORDNANCE KEEPER) Anatomical Region Laterality Modality Body N/A Computed Tomogra phy 05/21/2024 2:33 PM ORDNANCE KEEPER Impressions 05/21/2024 6:40 PM ORDNANCE KEEPER 1. No suspicious upper tract or renal lesion. 2. Severely trabeculated and thick-walled urinary bladder compatible with chronic urinary bladder obstruction. Evaluation for underlying mass is limited due to under-distension. 3. Increased prominent mesenteric lymph nodes and stranding. This is favored to represent mesenteric panniculitis, however lymphoma could appear similarly. Recommend repeat CT in 3 months to document stability. Dictated by: Lyle Barahona MD The radiology attending physician has personally reviewed this study, and had reviewed and/or edited this written report and agrees with it. Electronically signed by: Walt Estrada M.D. Narrative 05/21/2024 6:40 PM ORDNANCE KEEPER EXAMINATION: CT UROGRAPHY WITH AND WITHOUT CONTRAST HISTORY: Hematuria, history of renal stones, overactive bladder, and LUTS TECHNIQUE: CT urography of the abdomen and pelvis was performed prior to and following the uneventful intravenous administration of 120 mL Optiray 350 in the combined nephrographic and excretory phases according to a split bolus protocol. COMPARISON: 02/16/2023 FINDINGS: UROGRAPHIC FINDINGS: Right Kidney: The right kidney is normal size. There are no focal lesions. No calculi are seen. There is no hydronephrosis. The ureter is normal. The urothelium appears normal. Left Kidney: The left kidney is normal size. There are no focal lesions. No calculi are seen. There is no hydronephrosis. The ureter is normal. The urothelium appears normal. Bladder: Circumferentially thick-walled with numerous trabeculations. The bladder is not well evaluated given under-distension. NON-UROGRAPHIC FINDINGS: Mild bibasilar atelectasis. Unchanged pleural plaques. Coronary artery calcifications. Liver, gallbladder, spleen, pancreas, and adrenal glands are normal. Increased prominent mesenteric lymph nodes and stranding, likely mesenteric panniculitis. Colonic diverticulosis without diverticulitis. Postsurgical changes of appendectomy. No ascites or pneumoperitoneum. No retroperitoneal or pelvic lymphadenopathy. Atherosclerosis of the abdominal aorta which is nonaneurysmal. Mild degenerative disc disease without suspicious osseous lesion. Procedure Note Walt Estrada MD - 05/21/2024 EXAMINATION: CT UROGRAPHY WITH AND WITHOUT CONTRAST HISTORY: Hematuria, history of renal stones, overactive bladder, and LUTS TECHNIQUE: CT urography of the abdomen and pelvis was performed prior to and following the uneventful intravenous administration of 120 mL Optiray 350 in the combined nephrographic and excretory phases according to a split bolus protocol. COMPARISON: 02/16/2023 FINDINGS: UROGRAPHIC FINDINGS: Right Kidney: The right kidney is normal size. There are no focal lesions. No calculi are seen. There is no hydronephrosis. The ureter is normal. The urothelium appears normal. Left Kidney: The left kidney is normal size. There are no focal lesions. No calculi are seen. There is no hydronephrosis. The ureter is normal. The urothelium appears normal. Bladder: Circumferentially thick-walled with numerous trabeculations. The bladder is not well evaluated given under-distension. NON-UROGRAPHIC FINDINGS: Mild bibasilar atelectasis. Unchanged pleural plaques. Coronary artery calcifications. Liver, gallbladder, spleen, pancreas, and adrenal glands are normal. Increased prominent mesenteric lymph nodes and stranding, likely mesenteric panniculitis. Colonic diverticulosis without diverticulitis. Postsurgical changes of appendectomy. No ascites or pneumoperitoneum. No retroperitoneal or pelvic lymphadenopathy. Atherosclerosis of the abdominal aorta which is nonaneurysmal. Mild degenerative disc disease without suspicious osseous lesion. IMPRESSION: 1. No suspicious upper tract or renal lesion. 2. Severely trabeculated and thick-walled urinary bladder compatible with chronic urinary bladder obstruction. Evaluation for underlying mass is limited due to under-distension. 3. Increased prominent mesenteric lymph nodes and stranding. This is favored to represent mesenteric panniculitis, however lymphoma could appear similarly. Recommend repeat CT in 3 months to document stability. Dictated by: Lyle Barahona MD The radiology attending physician has personally reviewed this study, and had reviewed and/or edited this written report and agrees with it. Electronically signed by: Walt Estrada M.D. Esperanza Marlow MD IMG CT PROCEDURES Final Result * eGFR (05/14/2024 5:14 PM ORDNANCE KEEPER) eGFR 66 >=60 mL/min/1. 73 m2 Comment: Interpretive Data Reference Interval Normal >/= 90 mL/min/1.73m2 Mildly decreased* 60 - 89 mL/min/1.73m2 Mildly to moderately decreased 45 - 59 mL/min/1.73m2 Moderately to severely decreased 30 - 44 mL/min/1.73m2 Severely decreased 15 - 29 mL/min/1.73m2 Kidney Failure < 15 mL/min/1.73m2 *Relative to young adult level Estimated glomerular filtration rate is determined by the 2020 CKD-EPI equation recommended by the National Kidney Foundation (A Unifying Approach to GFR Estimation: Recommendations of the NKF-ASK Task Force on Reassessing the Inclusion of Race in Diagnosing Kidney Disease, JASN 202). The CKD-EPI equation should not be used for patients with unstable renal function and has not been validated in children and those over 70. Current interpretive data was last reviewed 2021. Blood 05/14/2024 5:14 PM ORDNANCE KEEPER 05/14/2024 6:06 PM ORDNANCE KEEPER us Ruthie Calderon NP LAB BLOOD ORDERABLES F inal Result Performing Organization Address [facility] Co de Phone Number [facility] [place] [address] * (ABNORMAL) Hemoglobin A1c (05/14/2024 5:14 PM ORDNANCE KEEPER) Hgb A1C 7.0(H) 4.0 - 5.6 % Estimated Average Glucose 154 mg/dL [facility] Comment: The ADA recommends reporting an estimated Average Glucose (eAG) with all Hemoglobin A1c results using the equation derived from a study of 507 normal and diabetic adults. Minority populations were underrepresented and children were not included. (Diabetes Care 2020; 43(S1): S66-S76). The eAG is not equivalent to a fasting glucose. Blood 05/14/2024 5:14 PM ORDNANCE KEEPER 05/14/2024 5:55 PM ORDNANCE KEEPER Result [facility] Ruthie Calderon MECHANICAL TECHNOLOGIST LAB BLOOD ORDERABLES F inal Result Performing Organization Address [facility] de Phone Number [facility] [place] [address] * Valproic acid level, total (05/14/2024 5:14 PM ORDNANCE KEEPER) Pathologist [facility] Valproic Acid 61.0 50.0 - 100.0 mcg/mL Comment: Interpretive Data Therapeutic or toxic effects of anticonvulsant drugs may occur at different concentrations in different patients and the correlation between dose and clinical effect must be evaluated individually. Current interpretative data was last revised on 13. Blood 05/14/2024 5:14 PM ORDNANCE KEEPER 05/14/2024 5:55 PM ORDNANCE KEEPER Result [facility] Joshua Colbert MECHANICAL TECHNOLOGIST LAB BLOOD ORDERABLES F inal Result Performing Organization Address [facility] Co de Phone Number [facility] Department [place] [address] * (ABNORMAL) Lipid panel (05/14/2024 5:14 PM ORDNANCE KEEPER) Cholesterol 205(H) 30 - 199 mg/dL Comment: Interpretive Data Ages < or = 19 years Acceptable: <170 mg/dL Borderline high: 170-199 mg/dL High: >or= 200 mg/dL Ages > or = 20 years Desirable: <200 mg/dL Borderline high: 200-239 mg/dL High: >or= 240 mg/dL Literature References: 1. Expert Panel on Integrated Guidelines for Cardiovascular Health and Risk Reduction in Children and Adolescents. Pediatrics 2011;128:S213 2. NCEP Expert Panel. Circulation 2004;110:227 Current Interpretive Data was last revised on 2017. Triglycerides 270(H) <=149 mg/dL [facility] Comment: Interpretive Data Ages < or = 9 years Acceptable: <75 mg/dL Borderline high: 75-99 mg/dL High: >or= 100 mg/dL Ages 10 to 20 years Acceptable: <90 mg/dL Borderline high: 90-129 mg/dL High: >or= 130 mg/dL Ages > or = 20 years Desirable: <150 mg/dL Borderline high: 150-199 mg/dL High: 200-499 mg/dL Very high: >or= 499 mg/dL Literature References: 1. Expert Panel on Integrated Guidelines for Cardiovascular Health and Risk Reduction in Children and Adolescents. Pediatrics 2011;128:S213 2. NCEP Expert Panel. Circulation 2004;110:227 Current Interpretive Data was last revised on 2017. HDL 44 >=40 mg/dL [facility] Comment: Interpretive Data Ages < or = 19 years Acceptable: >45 mg/dL Borderline low: 40-45 mg/dL Low: <40 mg/dL Ages > or = 20 years Desirable: >or= 60 mg/dL Low: <40 mg/dL Literature References: 1. Expert Panel on Integrated Guidelines for Cardiovascular Health and Risk Reduction in Children and Adolescents. Pediatrics 2011;128:S213 2. NCEP Expert Panel. Circulation 2004;110:227 Current Interpretive Data was last revised on 2017. LDL, calculated 114 <=129 mg/dL [facility] Comment: Interpretive Data Ages < or = 19 years Acceptable: <110 mg/dL Borderline high: 110-129 mg/dL High: >or= 130 mg/dL Ages > or = 20 years Optimal: <100 mg/dL Near optimal: 100-129 mg/dL Borderline high: 130-159 mg/dL High: >160 mg/dL Calculated using the Brian LDL-C estimating equation. This equation was implemented on 2023. Prior to this date LDL-C was estimated using the Friedewald equation. Literature References: 1. Expert Panel on Integrated Guidelines for Cardiovascular Health and Risk Reduction in Children and Adolescents. Pediatrics 2011;128:S213 2. NCEP Expert Panel. Circulation 2004;110:227 3. Brian Eisenberg et al. AMINA Cardiol. 2020 August 16;5(5):540-548. doi: 10.1001/[email or web address] Current Interpretive Data was last revised on 2023. Non-HDL Cholesterol 161 mg/dL [facility] Comment: Interpretive Data Ages < or = 19 years Acceptable: <120 mg/dL Borderline high: 120-144 mg/dL High: >145 mg/dL Ages > or = 20 years When triglycerides are >200 mg/dL, Non-HDL cholesterol is a secondary target of therapy with treatment goals that are 30 mg/dL greater than the LDL cholesterol target. Literature References: 1. Expert Panel on Integrated Guidelines for Cardiovascular Health and Risk Reduction in Children and Adolescents. Pediatrics 2011;128:S213 2. NCEP Expert Panel. Circulation 2004;110:227 Current Interpretive Data was last revised on 2017. Chol/HDL ratio 5 [facility] Blood 05/14/2024 5:14 PM ORDNANCE KEEPER 05/14/2024 5:55 PM ORDNANCE KEEPER us Joshua Colbert NP LAB BLOOD ORDERABLES F inal Result [facility] Department of Laboratories [place], [place] [id number] * Basic metabolic panel (05/14/2024 5:14 PM ORDNANCE KEEPER) Sodium 140 135 - 145 mmol/L Potassium, pl 4.2 3.3 - 4.9 mmol/L [facility] Chloride 102 97 - 110 mmol/L [facility] CO2 30 22 - 32 mmol/L [facility] Anion gap 8 2 - 15 mmol/L [facility] BUN 25 6 - 25 mg/dL [facility] Creatinine 1.14 0.80 - 1.30 mg/dL [facility] Glucose 123 70 - 199 mg/dL [facility] Comment: Interpretive Data Fasting glucose >/= 126 mg/dl is diagnostic for diabetes. Fasting is defined as no caloric intake for at least 8 hours. Fasting glucose between 100 mg/dl to 125 mg/dl is diagnostic of prediabetes. In a patient with classic symptoms of hyperglycemia or hyperglycemic crisis, a random glucose >/= 200 mg/dl is diagnostic for diabetes. In the absence of unequivocal hyperglycemia, results should be confirmed by repeat testing. The classification and Diagnosis of Diabetes Diabetes Care 2021; 46: S19-S40. Current interpretive data was last revised 2022. Calcium 9.4 8.5 - 10.3 mg/dL [facility] Blood 05/14/2024 5:14 PM ORDNANCE KEEPER 05/14/2024 5:55 PM ORDNANCE KEEPER us Ruthie Calderon MECHANICAL TECHNOLOGIST LAB BLOOD ORDERABLES F inal Result [facility] Department [place] [address] * (ABNORMAL) Albumin Creatinine Ratio, Urine (01/26/2023 3:07 PM CDT) Albumin Ur 280.8 mg/L Comment: Interpretive Data No reference range established. Current interpretive data was last revised 2018. Creatinine Ur 77.0 mg/dL [facility] Comment: Interpretive Data No reference range established. Current interpretive data was last revised 2018. Albumin Creatinine Ratio, Ur 365(H) 1 - 29 mg/g [facility] Urine 01/26/2023 3:07 PM CDT 01/26/2023 3:07 PM CDT us Nidiabarry Hayes NP LAB URINE ORDERABLES nal Result [facility] [id number] [address] Department [place] [address] * CT Abdomen Pelvis W Contrast (02/16/2022 11:20 AM CDT) Anatomical Region Laterality Modality Body N/A Computed Tomogra phy 02/16/2022 4:01 PM CDT Narrative 02/16/2022 6:14 PM CDT EXAM DESCRIPTION: CT ABDOMEN PELVIS W CONTRAST REASON FOR STUDY: Nausea/vomiting, nausea and constipation Pt states urine frequency and incontinence for 3 months. Prior appendectomy. Elevated alkaline phosphatase. TECHNIQUE: CT scan of the abdomen and pelvis performed with intravenous and with oral contrast using helical scanning technique with dynamic intravenous contrast injection. Reconstructed coronal and sagittal MPR images reviewed. All images stored on PACS. Automated exposure control was used as a dose optimization technique for this examination. CONTRAST TYPE/DOSE: 100mL of IOVERSOL 320 MG IODINE/ML INTRAVENOUS SYRINGE injected via the right antecubital fossa IV site. COMPARISON: No prior. FINDINGS: LOWER CHEST: Limited views through the lung base demonstrates a calcified pleural plaque of the anterior aspect of the right upper lobe. Other smaller calcified pleural plaques are seen about the lungs. These are most typical of exposure to asbestos. No suspicious lesion. There is also granulomatous change. There is dependent atelectasis. LIVER: Normal size. No identified cystic or solid masses. GALLBLADDER: No stones or inflammatory change. BILE DUCTS: No intrahepatic or extrahepatic ductal dilatation. SPLEEN: Normal size. No focal lesions. PANCREAS: No identified cystic or solid masses. No significant calcifications. No adjacent inflammation or peripancreatic fluid collections. Pancreatic duct not dilated. ADRENALS: Normal. KIDNEYS/URINARY TRACT: The kidneys demonstrate symmetric enhancement. No suspicious lesion. There is bilateral moderate hydronephrosis and hydroureter that extends all the way to the bladder. No stones. There is diffuse wall thickening and enhancement of the bladder wall with areas of small septation and irregularity. This is circumferential. Urology follow-up recommended. GI: Occasional diverticuli of the sigmoid and descending colon. No acute diverticulitis. There is no bowel obstruction or inflammatory change of bowel. Appendix is absent as noted in the history. The stomach and loops of small bowel are unremarkable. PERITONEUM: Occasional small subcentimeter mesenteric lymph node. These are nonspecific and typically reactive. RETROPERITONEUM: No mass or adenopathy. REPRODUCTIVE: There is prominence of the prostate. Correlate with PSA levels. VASCULATURE: Atherosclerotic change. No aneurysmal dilatation. Portal vein patent. MUSCULOSKELETAL: Mild osteoarthritis of the hips. Moderate spondylosis of the lumbar spine. No suspicious lytic or blastic lesion. OTHER: No other abnormality. IMPRESSION: 1. Abnormal appearance of the bladder seen rather diffusely with areas of wall thickening and some septation. This is rather circumferential favoring infectious or inflammatory change. Correlate with urinalysis. This does result in bilateral moderate hydroureter and hydronephrosis. Consider urology follow-up. 2. Prominence of the prostate. Correlate with PSA levels. 3. Occasional diverticuli of the colon with no acute diverticulitis. 4. Moderate spondylosis of the spine. Mild osteoarthritis of the hips. REFERENCE: Unless otherwise specified, no follow-up imaging is recommended for incidental renal and adrenal lesions per consensus recommendations based on imaging criteria. Further lab evaluation could be pursued based on clinical findings. Management of the Incidental Renal Mass on CT: A White Paper of the ACR Incidental Findings Committee. J Am David Radiol. 2018 May;15(2):264-273. Management of Incidental Adrenal Masses: A White Paper of the ACR Incidental Findings Committee. J Am David Radiol. 2017 Nov;14(8):7034-9657. THIS IS AN ELECTRONICALLY VERIFIED FINAL REPORT 02/16/2022 6:14 PM - Electronically signed by Robbin Prince M.D. MJ: [facility] Report ID: [id number] Reading Location: [id number] Procedure Note Robbin Prince MD - 02/16/2022 EXAM DESCRIPTION: CT ABDOMEN PELVIS W CONTRAST REASON FOR STUDY: Nausea/vomiting, nausea and constipation Pt states urine frequency and incontinence for 3 months. Priorappendectomy. Elevated alkaline phosphatase. TECHNIQUE: CT scan of the abdomen and pelvis performed with intravenousand with oral contrast using helical scanning technique with dynamicintravenous contrast injection. Reconstructed coronal and sagittal MPR imagesreviewed. All images stored on PACS. Automated exposure control was used as a dose optimization technique forthis examination. CONTRAST TYPE/DOSE: 100mL of IOVERSOL 320 MG IODINE/ML INTRAVENOUSSYRINGE injected via the right antecubital fossa IV site. COMPARISON: No prior. FINDINGS: LOWER CHEST: Limited views through the lung base demonstratesa calcified pleural plaque of the anterior aspect of the right upper lobe. Other smaller calcified pleural plaques are seen about the lungs. Theseare most typical of exposure to asbestos. No suspicious lesion. There isalso granulomatous change. There is dependent atelectasis. LIVER: Normal size. No identified cystic or solid masses. GALLBLADDER: No stones or inflammatory change. BILE DUCTS: No intrahepatic or extrahepatic ductal dilatation. SPLEEN: Normal size. No focal lesions. PANCREAS: No identified cystic or solid masses. No significant calcifications. No adjacent inflammation or peripancreatic fluidcollections. Pancreatic duct not dilated. ADRENALS: Normal. KIDNEYS/URINARY TRACT: The kidneys demonstrate symmetric enhancement. No suspicious lesion.There is bilateral moderate hydronephrosis and hydroureter that extends all theway to the bladder. No stones. There is diffuse wall thickening and enhancement of the bladder wall with areas of small septation and irregularity. This is circumferential. Urology follow-up recommended. GI: Occasional diverticuli of the sigmoid and descending colon. Noacute diverticulitis. There is no bowel obstruction or inflammatory change of bowel. Appendix is absent as noted in the history. The stomach and loopsof small bowel are unremarkable. PERITONEUM: Occasional small subcentimeter mesenteric lymph node. Theseare nonspecific and typically reactive. RETROPERITONEUM: No mass or adenopathy. REPRODUCTIVE: There is prominence of the prostate. Correlate with PSA levels. VASCULATURE: Atherosclerotic change. No aneurysmal dilatation. Portalvein patent. MUSCULOSKELETAL: Mild osteoarthritis of the hips. Moderate spondylosisof the lumbar spine. No suspicious lytic or blastic lesion. OTHER: No other abnormality. IMPRESSION: 1. Abnormal appearance of the bladder seen rather diffusely with areasof wall thickening and some septation. This is rather circumferentialfavoring infectious or inflammatory change. Correlate with urinalysis. This does result in bilateral moderate hydroureter and hydronephrosis. Considerurology follow-up. 2. Prominence of the prostate. Correlate with PSA levels. 3. Occasional diverticuli of the colon with no acute diverticulitis. 4. Moderate spondylosis of the spine. Mild osteoarthritis of the hips. REFERENCE: Unless otherwise specified, no follow-up imaging is recommendedfor incidental renal and adrenal lesions per consensus recommendations basedon imaging criteria. Further lab evaluation could be pursued based onclinical findings. Management of the Incidental Renal Mass on CT: A White Paper of the ACR Incidental Findings Committee. J Am David Radiol. 2018 May;15(2):264-273. Management of Incidental Adrenal Masses: A White Paper of the ACRIncidental Findings Committee. J Am David Radiol. 2017 Nov;14(8):9810-9877. THIS IS AN ELECTRONICALLY VERIFIED FINAL REPORT 02/16/2022 6:14 PM - Electronically signed by Robbin Prince M.D. MJ: STANLEY Report ID: [id number] Reading Location: [place] [address] [facility] Mabel Calderon MECHANICAL TECHNOLOGIST IMG CT PROCEDURES Katalina l Result from Last 3 Months or Most Recently Relevant to Health Maintenance Insurance MEDICARE FORMERLY [facility], [facility] Address: [place] [address] MEDICARE [facility] Address: [address] [place] [address] MEDICARE [place] [employer] [facility] Advance Directives For more information, please contact: [phone] * Full Code (Latest Code Status on File) Date Activated Date Inactivated Comments 09/03/2023 4:14 AM 09/06/2023 7:22 PM * Full Code Date Activated Date Inactivated Comments 08/31/2023 5:38 PM 09/03/2023 2:37 AM * Full Code Date Activated Date Inactivated Comments 08/18/2023 4:09 PM 08/24/2023 7:22 PM * Full Code Date Activated Date Inactivated Comments 08/05/2023 9:52 PM 08/07/2023 7:11 PM 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
--- OUTSIDE RECORDS SUMMARY | 2024-07-03 16:26 | XMS_ITS | Referral Summary ---
Author Organization [facility] Address [address] [place] [address] Care Team Providers Care Applications Manager Name Role Phone Liam FONTAINE MD, Yaw [facility] Linda Brar MD Primary Care Provid er Encounters Date Type Department Care Team Description 06/18/2024 Orders Only [facility] Geriatric Medicine [address] [facility] 12th Floor [address] [place] [phone] Linda Brar MD 06/15/[address] [facility] Orthopaedic Surgery [address] [facility] 12th Floor [address] [place] [phone] Yahaira Hdez MD 06/11/[address] [facility] Complete Care [address] [place] [address] Medical Office Building [address], [address] [place] [address] Missy Moe, RN 05/22/[address] [facility] Surgery [address] [facility] [address] [place] [address] Moon Shoemaker RMA 05/21/2024 4:18 PM DIRECTOR BUSINESS - 05/21/2024 11:59 PM DIRECTOR BUSINESS Hospital Encounter [address] [address] Gross hematuria; Bladder wall thickening; Abnormal finding in urine Discharge Disposition: Discharge to home or self care 05/21/2024 12:29 PM DIRECTOR BUSINESS - 05/21/2024 11:59 PM DIRECTOR BUSINESS Hospital Encounter [facility] [address] [place] [address] Gross hematuria Discharge Disposition: Discharge to home or self care 05/21/2024 2:40 PM DIRECTOR BUSINESS Office Visit [facility] - [facility] Urology [address] [facility] [place] Medicine 11th [place] [address] [place] [address] Esperanza Marlow MD Gross hematuria (Primary Dx); Bladder wall thickening; Abnormal finding in urine 05/15/2024 Orders Only [facility] Stroke [address] [place] [address] [place] [phone] Joshua Colbert NP Mixed hyperlipidemia (Primary Dx); Hyperlipidemia LDL goal <70; Medication dose increased 05/14/2024 9:30 PM DIRECTOR BUSINESS Lab [facility] Advanced Medicine [facility] Advanced Medicine ([facility]) [address] [place] [phone] Hypertension, unspecified type; Type 2 diabetes mellitus without complication, without long-term current use of insulin (HCC) 05/14/2024 9:15 PM DIRECTOR BUSINESS Lab [facility] Advanced Medicine ([facility]) [address] [place] [phone] Medication monitoring encounter; Primary hypertension 05/14/2024 3:30 PM DIRECTOR BUSINESS Office Visit 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 (Primary Dx); Hemiplegia and hemiparesis following cerebral infarction affecting left non-dominant side (HCC); Primary hypertension; Mixed hyperlipidemia; Impaired functional mobility, balance, gait, and endurance; Medication monitoring encounter 04/05/2024 2:00 PM DIRECTOR BUSINESS Office Visit [address] Medical Office Building [address], [address] [place] [phone] Ruthie Calderon NP Encounter for immunization (Primary Dx); Hypertension, unspecified type; Type 2 diabetes mellitus without complication, without long-term current use of insulin ([facility]) from Last 3 Months Allergies Active Allergy Reactions Criticality Noted Date [...] complication, without long-term current use of insulin ([facility]) 1 Lancet daily 1 kit 1 06/03/19 24 Active blood-glucose meter (Accu-Chek Ching) miscIndications :Type 2 diabetes mellitus without complication, without long-term current use of insulin ([facility]) Use as directed to check blood glucose [...] 06/02/2023 Assessment & Plan (06/02/2023 7:17 PM DIRECTOR BUSINESS): -due to recent changes including personality change, [...] weeks Assessment & Plan (06/02/2023 7:15 PM DIRECTOR BUSINESS): -sudden onset -4 cm discrepancy between calves -negative Pennie's sign -redness, warmth and diffuse swelling of LLE -check stat VUS to r/o acute DVT Left spastic hemiparesis 06/04/2022 Paul-inattention 06/04/2022 Impaired functional mobility, balance, gait, and endurance 06/04/2022 Assessment & Plan (06/02/2023 7:17 PM DIRECTOR BUSINESS): -resume PT, ordered Neuromuscular dysfunction of bladder, [...] own without assistance -recommend home PT and home performance consultant to assist with ADLs, referral for [facility] / home health placed Generalized weakness [...] or two with his neurology group at [facility] -continue Plavix 75 mg daily, atorvastatin 40 mg nightly and amlodipine 5 mg daily -ER precautions discussed if any acute symptoms recur Dysphagia 09/17/2019 Sensorineural hearing loss (SNHL) of both ears 1 BPH (benign prostatic hyperplasia) 08/09/2017 HTN (hypertension) 04/24/2017 Assessment & Plan (04/05/2024 2:56 PM DIRECTOR BUSINESS): -BP here today and at home running above goal -increase lisinopril to 40 mg daily -check BMP in 2 weeks Assessment & Plan (01/05/2024 2:56 PM CDT): -BP above goal -lisinopril was stopped while in hospital -restart lisinopril at 20 mg daily -stop amlodipine 2.5 mg daily -check BMP in 2-4 weeks -keep upcoming appointment with nephrology Assessment & Plan (06/02/2023 7:09 PM DIRECTOR BUSINESS): -BP above goal today -increase lisinopril to 10 mg daily -check renal function and lytes Assessment & Plan (09/30/2022 1:50 PM CDT): -BP at goal -continue amlodipine 5 mg daily -check renal function Assessment & Plan (06/03/2022 1:21 PM DIRECTOR BUSINESS): -blood pressure at goal on second reading -continue amlodipine 5 mg daily -check BMP Assessment & Plan (03/04/2022 2:32 PM DIRECTOR BUSINESS): -BP at goal, continue amlodipine 5 mg [...] weeks Assessment & Plan (04/02/2021 2:35 PM DIRECTOR BUSINESS): -borderline control, continue amlodipine 5 mg daily [...] 3:16 PM CDT): -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 mg snf (current) use of antithrombotics/antip latelets 04/24/2017 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 (current) use of aspirin 04/24/2017 Presence of other vascular implants and grafts 0 04/24/2017 Type 2 diabetes mellitus without complications 0 04/24/2017 Assessment & Plan (04/05/2024 2:56 PM DIRECTOR BUSINESS): -check A1c -has previously had poor tolerance [...] sugar Assessment & Plan (06/02/2023 7:13 PM DIRECTOR BUSINESS): -check A1c, last with fair control at 7.6% -adherent with jardiance 25mg daily -has recently restarted Metformin, tolerating well - continue -previously took rybelsus summer 2022, stopped after three days due to vomiting ; also previous intolerance to Trulicity -continue ACEI and statin -up to date with eye doctor and lamination technician Assessment & Plan (09/30/2022 1:54 PM CDT): [...] surgery in November -up to date with lamination technician - still awaiting diabetic shoes Assessment & Plan (06/03/2022 1:23 PM DIRECTOR BUSINESS): -check A1C, near goal in Fall 2021 -continue statin, off ACEI d/t low BP last fall -needs to see eye doctor in near future -follows with podiatry every 3 months, having diabetic shoe paperwork sent to our office for completion -needs shingrix, other vaccines up to date Assessment & Plan (03/04/2022 2:34 PM DIRECTOR BUSINESS): -check A1C -currently taking Jardiance 25 mg [...] prevnar-13 Assessment & Plan (04/02/2021 2:36 PM DIRECTOR BUSINESS): -A1C at goal 7% in clinic today [...] 2017 Assessment & Plan (04/29/2020 1:30 PM DIRECTOR BUSINESS): - Will send Referral to NR clinic for botox injections. Patient has spastic left arm. MAS 3 - WIll discuss the addition of patient to next iteration of IpsiHand trial with Dr. Bashir] - Will send referral to [facility] PT/OT/SLUBBER MACHINE OPERATOR to optimize patient for possible IpsiHand [...] of left middle cerebral artery 05/24/2017 08/01/2020 Immunizations Immunization Administration Dates Next Due Influenza, [...] 05/05/2023 Tdap 05/05/2023,08/04/2020 Tetanus Toxoid, Unspecified 05/05/2023 Social History Tobacco Use Types Packs/Day Years Used Date Smoking Tobacco: Former Pipe 1 965 - 1979 Passive Smoke Exposure: Past Smokeless Tobacco: Never Tobacco Cessation:Counseling Given: Not Answered Alcohol Use Standard Drinks/Week Comments Yes 0 (1 standard drink = 0.6 oz pur e alcohol) Occasionally [facility] Utilities Answer Date Recorded In the past 12 months has [employer], gas, oil, or water company threatened to [...] week 09/04/2023 How often do you attend [facility] ch or uatsdin services? 1 to 4 times per year 09/04/2023 Do you belong to any clubs o r organizations such as jewish groups, unions, fraternal or athletic groups, or [...] place to sleep or slept in a care home (including now)? Patient unable to answer 09/01/2023 [...] any time in the past 12 m [facility], were you homeless or living in a care home (including now)? Patient unable to answer 09/05/2023 Personal Safety Answer Date Recorded Have you ever been in or are you currently in a harmful physical or emotional relationship or is someone making you feel afraid or unsafe? Denies 09/03/2023 Sex and Gender Information Value Date Recorded Sex Assigned at Not on file Legal Sex Male 7:29 AM DIRECTOR BUSINESS Gender Identity Male 09/01/2020 11:55 AM CDT Sexual Orientation Straight 09/01/2020 11 :55 AM CDT Last Filed Vital Signs Vital Sign Reading Time Taken Comments Blood Pressure 118/76 05/14/2024 3:25 PM DIRECTOR BUSINESS Pulse 77 05/14/2024 3:25 PM DIRECTOR BUSINESS Temperature 36.5 C (97.7 F) 04/05/2024 2:10 PM DIRECTOR BUSINESS Respiratory Rate 16 04/05/2024 2:10 PM DIRECTOR BUSINESS Oxygen Saturation 99% 04/05/2024 2:10 PM DIRECTOR BUSINESS Inhaled Oxygen Concentration - - Weight 79.4 kg (175 lb) 05/14/2024 3:25 PM DIRECTOR BUSINESS Height 177.8 cm (5' 10 ) 05/14/2024 3:25 PM DIRECTOR BUSINESS Body Mass Index 25.11 05/14/2024 3:25 PM DIRECTOR BUSINESS Plan of Treatment Not on file Medical Devices Implanted Type Area Nuisance Wildlife Control Operator Device Identifier Shelf Expiration Date Model / Serial / Lot [employer] Cecilio Antibiotic Kit Catheter Sterile Latex Free [id number] - [id number] Implanted:Qty: 1 on 08/06/2023 by Luis Carlos Mcgill MD at [facility] Left: Brain [employer] [id number] 11/28/2024 [id number] / / [id number] [employer] Certas Inline Siphonguard Valve Shunt [id number] - [id number] Implanted:Qty: 1 on 08/06/2023 by Luis Carlos Mcgill MD at [facility] Left: Brain [employer] [id number] / / Procedures Procedure Name Priority Date/Time Associated Diagnosis Comments POCT URINALYSIS DIPSTICK Routine 05/21/2024 4:25 PM DIRECTOR BUSINESS Gross hematuria URINE CULTURE Routine 05/21/2024 4:18 PM DIRECTOR BUSINESS Gross hematuria Bladder wall thickening Abnormal finding in urine CT UROGRAM Schedule Routine, Read Routine (OP Routine) 05/21/2024 2:07 PM DIRECTOR BUSINESS Gross hematuria EGFR Routine 05/14/2024 5:14 PM DIRECTOR BUSINESS Hypertension, unspecified type HEMOGLOBIN A1C Routine 05/14/2024 5:14 PM DIRECTOR BUSINESS Type 2 diabetes mellitus without complication, without long-term current use of insulin (HCC) BASIC METABOLIC PANEL Routine 05/14/2024 5:14 PM DIRECTOR BUSINESS Hypertension, unspecified type LIPID PANEL Routine 05/14/2024 5:14 PM DIRECTOR BUSINESS Primary hypertension Medication monitoring encounter VALPROIC ACID LEVEL, TOTAL Routine 05/14/2024 5:14 PM DIRECTOR BUSINESS Medication monitoring encounter ALBUMIN CREATININE RATIO, URINE [...] (ABNORMAL) POCT urinalysis dipstick (05/21/2024 4:25 PM DIRECTOR BUSINESS) Color, Urine, POC Yellow Clarity, ur, POC Cloudy(A) Clear Glucose, ur, POC Negative Negative MG/DL Ketones, ur, POC Negative Negative Blood, ur, POC 1+(A) Negative pH, ur, POC 5.0 5.0 - 8.0 Protein, ur, POC 1+(A) Negative Nitrite, ur, POC Negative Negative Leukocytes, ur, POC 2+(A) Negative Lot Number 0 Urine 05/21/2024 4:25 PM DIRECTOR BUSINESS Esperanza Marlow MD POINT OF CARE TEST ORDERABLES Fi nal Result * Urine culture Urine, clean voided (05/21/2024 4:18 PM DIRECTOR BUSINESS) Report Final Report: Less than 100,000 colonies/mL (clinically insignificant growth based on current clinical standards) Organism (CLINICALLY INSIGNIFICANT GROWTH [facility] Urine, clean voided 05/21/2024 4:18 PM DIRECTOR BUSINESS 05/21/2024 8:57 PM DIRECTOR BUSINESS Narrative [facility] - 05/23/2024 8:07 AM DIRECTOR BUSINESS Testing performed by [facility] ([phone]) us Esperanza Marlow MD LAB MICROBIOLOGY - GENERAL ORDER JESSICA Final Result [facility] Department [place] [address] * CT Urogram WO 3D (05/21/2024 2:07 PM DIRECTOR BUSINESS) Anatomical Region Laterality Modality Body N/A Computed Tomogra phy 05/21/2024 2:33 PM DIRECTOR BUSINESS Impressions 05/21/2024 6:40 PM DIRECTOR BUSINESS 1. No suspicious upper tract or renal [...] Walt Estrada M.D. Narrative 05/21/2024 6:40 PM DIRECTOR BUSINESS EXAMINATION: CT UROGRAPHY WITH AND WITHOUT CONTRAST [...] it. Electronically signed by: Walt Estrada M.D. us Esperanza Marlow MD IMG CT PROCEDURES Final Result * eGFR (05/14/2024 5:14 PM DIRECTOR BUSINESS) eGFR 66 >=60 mL/min/1. 73 m2 Comment: [...] of Race in Diagnosing Kidney Disease, JASN 2020). The CKD-EPI equation should not be used for patients with unstable renal function and has not been validated in children and those over 70. Current interpretive data was last reviewed 2021. Blood 05/14/2024 5:14 PM DIRECTOR BUSINESS 05/14/2024 6:06 PM DIRECTOR BUSINESS Ruthie Calderon NP LAB BLOOD ORDERABLES F inal Result [facility] One [facility] Department of Laboratories [place], [place] [phone] * (ABNORMAL) Hemoglobin A1c (05/14/2024 5:14 PM DIRECTOR BUSINESS) Hgb A1C 7.0(H) 4.0 - 5.6 % Estimated Average Glucose 154 mg/dL [facility] Comment: The ADA recommends reporting an estimated Average Glucose (eAG) with all Hemoglobin A1c results using the equation derived from a study of 507 normal and diabetic adults. Minority populations were underrepresented and children were not included. (Diabetes Care 2020; 43(S1): S66-S76). The eAG is not equivalent to a fasting glucose. Blood 05/14/2024 5:14 PM DIRECTOR BUSINESS 05/14/2024 5:55 PM DIRECTOR BUSINESS Ruthie Calderon AQUATICS ASSISTANT DEPARTMENT HEAD LAB BLOOD ORDERABLES F inal Result Performing Organization Address [facility] de Phone Number [facility] Department [place] [address] * Valproic acid level, total (05/14/2024 5:14 PM DIRECTOR BUSINESS) Valproic Acid 61.0 50.0 - 100.0 mcg/mL Comment: Interpretive Data Therapeutic or toxic effects of anticonvulsant drugs may occur at different concentrations in different patients and the correlation between dose and clinical effect must be evaluated individually. Current interpretative data was last revised on 13. Blood 05/14/2024 5:14 PM DIRECTOR BUSINESS 05/14/2024 5:55 PM DIRECTOR BUSINESS Joshua Colbert AQUATICS ASSISTANT DEPARTMENT HEAD LAB BLOOD ORDERABLES F inal Result Performing Organization Address [facility] de Phone Number [facility] Department [place] [address] * (ABNORMAL) Lipid panel (05/14/2024 5:14 PM DIRECTOR BUSINESS) Cholesterol 205(H) 30 - 199 mg/dL Comment: [...] revised on 2017. Triglycerides 270(H) <=149 mg/dL [facility] Comment: Interpretive Data Ages < or = [...] revised on 2017. HDL 44 >=40 mg/dL [facility] Comment: Interpretive Data Ages < or = [...] on 2017. LDL, calculated 114 <=129 mg/dL [facility] Comment: Interpretive Data Ages < or = [...] revised on 2023. Non-HDL Cholesterol 161 mg/dL [facility] Comment: Interpretive Data Ages < or = [...] last revised on 2017. Chol/HDL ratio 5 [facility] Blood 05/14/2024 5:14 PM DIRECTOR BUSINESS 05/14/2024 5:55 PM DIRECTOR BUSINESS Joshua Colbert AQUATICS ASSISTANT DEPARTMENT HEAD LAB BLOOD ORDERABLES F inal Result [facility] One [facility] Department [place] [address] * Basic metabolic panel (05/14/2024 5:14 PM DIRECTOR BUSINESS) Sodium 140 135 - 145 mmol/L Potassium, pl 4.2 3.3 - 4.9 mmol/L [facility] Chloride 102 97 - 110 mmol/L [facility] CO2 30 22 - 32 mmol/L [facility] Anion gap 8 2 - 15 mmol/L [facility] BUN 25 6 - 25 mg/dL [facility] Creatinine 1.14 0.80 - 1.30 mg/dL [facility] Glucose 123 70 - 199 mg/dL [facility] Comment: Interpretive Data Fasting glucose >/= 126 [...] 2022. Calcium 9.4 8.5 - 10.3 mg/dL [facility] Blood 05/14/2024 5:14 PM DIRECTOR BUSINESS 05/14/2024 5:55 PM DIRECTOR BUSINESS us Ruthie Calderon AQUATICS ASSISTANT DEPARTMENT HEAD LAB BLOOD ORDERABLES F inal Result Performing Organization Address [facility] Co de Phone Number [facility] One [facility] Department [place] [address] * (ABNORMAL) Albumin Creatinine Ratio, Urine (01/26/2023 3:07 PM CDT) Albumin Ur 280.8 mg/L Comment: Interpretive Data No reference range established. Current interpretive data was last revised 2018. Creatinine Ur 77.0 mg/dL [facility] Comment: Interpretive Data No reference range established. Current interpretive data was last revised 2018. Albumin Creatinine Ratio, Ur 365(H) 1 - 29 mg/g [facility] Urine 01/26/2023 3:07 PM CDT 01/26/2023 3:07 PM CDT Nidia Hayes AQUATICS ASSISTANT DEPARTMENT HEAD LAB URINE ORDERABLES Fi nal Result Performing Organization Address [facility] Co de Phone Number [facility] [address] [address] [place] [address] * CT Abdomen Pelvis W Contrast (02/16/2022 [...] Findings Committee. J Am David Radiol. 2017 Nov;14(8):4236-6936. THIS IS AN ELECTRONICALLY VERIFIED FINAL REPORT 02/16/2022 6:14 PM - Electronically signed by Robbin Prince M.D. MJ: STANLEY Report ID: [id number] Reading Location: [id number] Procedure Note Robbin Prince MD - 02/16/2022 [...] Findings Committee. J Am David Radiol. 2017 Nov;14(8):5154-7068. THIS IS AN ELECTRONICALLY VERIFIED FINAL REPORT 02/16/2022 6:14 PM - Electronically signed by Robbin Prince M.D. MJ: STANLEY Report ID: [id number] Reading Location: [place] [address] Ruthie Monroe Yumiko AQUATICS ASSISTANT DEPARTMENT HEAD IMG CT PROCEDURES Katalina l Result from Last 3 Months or Most Recently Relevant to Health Maintenance Insurance [facility]ARE [facility] MEDICARE [place] [employer] MEDICARE [employer] Advance Directives For more information, please contact: [phone] * Full Code (Latest Code Status on File) Date Activated Date Inactivated Comments 09/03/2023 4:14 AM 09/06/2023 7:22 PM * Full Code Date Activated Date Inactivated Comments 08/31/2023 5:38 PM 09/03/2023 2:37 AM * Full Code Date Activated Date Inactivated Comments 08/18/2023 4:09 PM 08/24/2023 7:22 PM * Full Code Date Activated Date Inactivated Comments 08/05/2023 9:52 PM 08/07/2023 7:11 PM Care Teams Applications Manager Relationship Specialty Start Date End Date Linda Brar MD [address] [facility] [address] GENERAL MED, [facility] [address] [place] [address] PCP - General Geriatric Medicine 06/11/24 [place] [address] [facility] [address] [place] [address] Referring Physician Urology 02/17/22
--- OUTSIDE RECORDS SUMMARY | 2024-07-03 16:26 | XMS_ITS | Encounter Summary ---
Author Organization [facility] Address [address] [place] [address] Care Team Providers Care Financial Planning Consultant Name Role Phone Kimberly Navarrete MD Primary Care Provider Encounter Details Date Type Department Care Team (Late st Contact Info) Description 10/10/2018 Lab Requisition [facility] [address] [facility] [place] [id number] Chrissie Medina, DO [address] [facility] [address] [place] [address] Social History Tobacco Use Types Packs/Day Years Used Date Smoking Tobacco: Former Pipe Smokeless Tobacco: Never Comments:quit 1979 Alcohol Use Standard Drinks/Week Comments No 0 (1 standard drink = 0.6 oz pur e alcohol) Sex and Gender Information Value Date Recorded Sex Assigned at Male 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 Gender Identity Not on file Sexual Orientation Not on file documented as of this encounter Plan of Treatment Not on file documented as of this encounter Procedures Procedure Name Priority Date/Time Associated Diagnosis Comments DERMATOPATHOLOGY Routine 10/09/2018 12:0 0 AM CDT documented in this encounter Results * DERMATOPATHOLOGY (10/09/2018 12:00 AM CDT) Case Report Dermatopathology Report Case: [id number] Authorizing Provider: Chrissie Medina DO Collected: 10/09/2018 12:00 AM Pathologist: Darcy Castle MD Received: 10/10/2018 12:27 PM Specimens: A) - Skin, right abdomen B) - Skin, left helix 11:53 AM CDT DERMATOPATHOLOGY LABORATORY Final Diagnosis Specimen A. 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 SKIN, left helix: BASAL CELL CARCINOMA, NODULAR TYPE (C44.219) 11:53 AM CDT DERMATOPATHOLOGY LABORATORY Clinical History A: Nevus R/O atypia. B: R/O BCC. 11:53 AM CDT DERMATOPATHOLOGY LABORATORY Gross Description Specimen A: Received is one formalin filled container labeled with the patient's name and designated right abdomen. The specimen consists of a shave measuring [id number]. Jar 0. Specimen B: Received is one formalin filled container labeled with the patient's name and designated left helix. The specimen consists of a shave measuring [id number]. Jar 0. 11:53 AM CDT DERMATOPATHOLOGY LABORATORY Microscopic Description Specimen A. SKIN, right abdomen: This is a compound nevus. There is melanin pigment in the stratum corneum. There is architectural disorder characterized by a lentiginous proliferation of melanocytes between irregular nevus nests of cells along the dermal epidermal junction. There is underlying fibroplasia of the papillary dermis. The intradermal component is bland in appearance and matures with depth. (Compound Jay's Nevus or Compound Dysplastic Nevus) Specimen B. SKIN, left helix: Within the dermis there are aggregates of basaloid cells with a high nuclear to cytoplasmic ratio and peripheral palisading. 11:53 AM CDT DERMATOPATHOLOGY LABORATORY Disclaimer An external and internal positive and negative controls are appropriate for the histochemical, immunohistochemical and immunofluorescence stain(s) in this case (if any), except where stated explicitly. The performance characteristics of the stain(s) cited in this report were developed and its performance characteristic determined by the Dermatopathology Laboratory at [facility], directed by Dr. Sherry Sam. These tests need not be, and therefore are not, approved by the [place] Food and Drug Administration. The tests are used for clinical purposes. Billing Codes Specimen Charges Stain Charges 13411 11699 1 1 9 11:53 AM CDT DERMATOPATHOLOGY LABORATORY Embedded Images 9 11:53 AM CDT DERMATOPATHOLOGY LABORATORY Pathology/Cytology TISSUE SPECIMEN FROM SKIN / Unknown 10/09/2018 10/10/2018 12:27 PM CDT Miscellaneous samples (specimen) TISSUE SPECIMEN FROM SKIN / Unknown 10/09/2018 10/10/2018 12:27 PM CDT Chrissie Medina DO LAB - PATHOLOGY/C YTOLOGY ORDERABLES DERMATOPATHOLOGY LABORATORY [facility] - Department of Dermatology [address] [place] [address] 5th Floor Lab [address] [phone] documented in this encounter Visit Diagnoses Not on filedocumented in this encounter Additional Health Concerns Infection Onset Date Last Indicated Resolved Time COVID-19 Under Investigation 11/20/2023 11/20/2023 11/20/2023 10:51 PM CDT COVID-19 Confirmed 11/20/2023 11/20/2023 4:33 AM CDT documented as of this encounter Care Teams Financial Planning Consultant Relationship Specialty Start Date End Date Kimberly Navarrete MD PCP - General 07/17/17 documented as of this encounter
== END 2024-07-03 15:29 | disposition home or self-care (01) ==
PROVIDERS: Emergency Provider Nurse Practitioner Family
DX: J40 Bronchitis, not specified as acute or chronic (principal); J06.9 Acute upper respiratory infection, unspecified; Z20.822 Contact with and (suspected) exposure to COVID-19; E11.9 Type 2 diabetes mellitus without complications; Z87.891 Personal history of nicotine dependence; Z86.73 Personal history of transient ischemic attack (TIA), and cerebral infarction without residual deficits
CPT/HCPCS: 71045; 87081; 87426; 87804; 87880; 99213; G0463

== ENCOUNTER 2024-12-03 09:01 | Emergency (ER) | payer MEDICARE, BC, SELFPAY ==
[2024-12-03] VITALS (20 sets, daily range): BP systolic 155–188; BP diastolic 72–101; PULSE 72–85; RESP 12–23; TEMP 37.1; O2SAT 96–99
--- NOTE | ~2024-12-03 | XR_ITS ---
EXAMINATION: XR shunt series DATE: 12/03/2024 10:01 INDICATION: Slurred speech TECHNIQUE: AP and lateral views of the head and neck and AP views of the chest, abdomen and pelvis we re obtained. COMPARISON: Chest radiograph dated 07/03/2024 and PET/CT dated 12/03/2024 FINDINGS: Again seen is a ventriculoperitoneal shunt which courses from a valve overlying the left si de of the skull on the left side of the neck, chest and abdomen before crossing the midline in the pe lvis with distal tip in the right lower quadrant. Proximally the catheter extends across the midline of the distal tip projecting over the expected location of the right lateral ventricle. No evident ki nks or discontinuities along the course of the catheter. Lung volumes are small with mild streaky opa cities at the bilateral lung bases and favor atelectasis over pneumonia. There is an additional appro ximately 2 cm indeterminate nodular opacity projecting over the right midlung zone. Calcified nodule projecting over the left midlung zone consistent with old granulomatous disease. No pleural effusion or pneumothorax. Heart size is normal. Normal bowel gas pattern. IMPRESSION: 1. No kinks or discontinuities along the course of a left-sided ventriculoperitoneal shunt catheter t he proximal tip which extends across midline project over the expected region of the right lateral ve ntricle. 2. Indeterminate approximately 2 cm nodular opacity right midlung zone. Recommend chest CT for furthe r evaluation. Reviewed, dictated and finalized at location A. IMPRESSION: 1. No kinks or discontinuities along the course of a left-sided ventriculoperit sofia shunt catheter the proximal tip which extends across midline project over the expected region of the right lateral ventricle. 2. Indeterminate approximately 2 cm nodular opacity right midlung zone. Recomme nd chest CT for further evaluation.
--- NOTE | ~2024-12-03 | CT_ITS ---
Non-contrast Head CT History: CVA COMPARISON: 06/16/2021 Technique: Axial non-contrast imaging of the brain was performed. Dose reduction technique was used on this scan by utilizing automated exposure control and iterative reconstruction technique. The dose -length product (DLP) was 983.67 mGy-cm. Findings: There is a large apparent arachnoid cyst along the anterior left temporal and left frontal convexity, measuring up to approximately 10.4 x 5.0 x 9.4 cm in size, essentially stable from prior e xam. There is associated mass effect with compression of the left lateral ventricle, and rightward mi dline shift of up to 13 mm, also similar to prior exam. Ventriculostomy shunt catheter enters via lef t sided frontal meron hole. There is chronic encephalomalacia in the region of the right basal ganglia and right insular cortex, unchanged. No acute intracranial hemorrhage identified. The visualized par anasal sinuses and mastoid air cells are clear. Impression: No acute abnormality seen. No significant change from prior exam. Large presumed arachnoid cyst along the anterior left temporal and left frontal convexity, measuring 10.4 x 5.0 x 9.4 cm, with significant mass effect. There is compression of the left lateral ventricle with rightward midline shift at the 13 mm, similar to prior exam. Stable ventriculostomy shunt catheter. Stable chronic encephalomalacia in the right basal ganglia and right insular cortex region. Case discussed with Dr. Tierney at 9:15 AM on 12/03/2024. Reviewed, dictated and finalized at [facility]. Impression: No acute abnormality seen. No significant change from prior exam. Large presumed arachnoid cyst along the anterior left temporal and left frontal convexity, measuring 10.4 x 5.0 x 9.4 cm, with significant mass effect. There is compression of the left lateral ventricle with rightward midline shift at th e 13 mm, similar to prior exam. Stable ventriculostomy shunt catheter. Stable chronic encephalomalacia in the right basal ganglia and right insular co rtex region. Case discussed with Dr. Tierney at 9:15 AM on 12/03/2024.
--- NOTE | 2024-12-03 09:01 | ECG_ITS ---
Test Date: 2024-12-03 09:39:22 Measurements Intervals [place] Rate: 79 P: 65 KS: 174 QRS: 57 QRSD: 79 T: 48 QT: 379 QTc: 436 Interpretive Statements SINUS RHYTHM BASELINE ARTIFACT- I, II, III, AVR, AVL, AVF, V1-V6 NORMAL ECG No previous ECG available for comparison Electronically Signed On 12-03-2024 11:47:31 CDT by Ronni Serrato D.O.
--- NOTE | 2024-12-03 09:22 | ED_ITS ---
HPI - Neuro Symptoms/Deficit General Chief Complaint: Suspected CVA Stated Complaint: cva? Time Seen by Provider: 12/03/24 09:03 Source: patient, family, EMS, RN notes reviewed and old records reviewed Mode of arrival: EMS Limitations: dementia History of Present Illness HPI Narrative: This is a 79 year old male with history of TIA, CVA, SLUBBER OPERATOR shunt who presents for evaluation of possible stroke. It is reports that patient has some confusion, left arm contracture, and generalized weakness and left facial droop at baseline from previous stroke. IT is reported that patient was normal at 7 am when staff got him dressed. They left and on their return patient was found to have slurred speech around 8 am. Patient is oriented to person. HE denies any complaints. His states that he had episode of slurred speech 3 days ago but it resolved within a couple minutes Last Observed Normal: 07:00 Location: dysarthria On Anticoagulants: Yes (plavix) Treatments Prior to Arrival: none Related Data Home Medications ?Medication ?Instructions ?Recorded ?Confirmed ?Last Taken ?Type Centrum Silver Men 1 tab-cap PO DAILY 12/12/19 12/31/21 Unknown History acetaminophen 325 mg tablet 325 mg PO Q6H PRN Pain 12/12/19 12/31/21 Unknown History amlodipine 5 mg tablet (Norvasc) 5 mg PO DAILY 12/12/19 12/31/21 Unknown History atorvastatin 40 mg tablet 40 mg PO DAILY 12/12/19 12/31/21 Unknown History clopidogrel 75 mg tablet 75 mg PO DAILY 12/12/19 12/31/21 Unknown History empagliflozin 10 mg tablet 25 mg PO DAILY 12/12/19 12/31/21 Unknown History (Jardiance) finasteride 5 mg tablet 5 mg PO DAILY 12/12/19 12/31/21 Unknown History hydrocortisone 2.5 % lotion 1 applic topical HS 12/12/19 12/31/21 Unknown History levetiracetam 500 mg tablet 500 mg PO BID 12/12/19 12/31/21 Unknown History docusate sodium 100 mg tablet 100 mg PO 2XW 06/16/21 12/31/21 Unknown History ketoconazole 2 % topical cream 1 applic topical DAILY 12/31/21 12/31/21 Unknown History lisinopril 10 mg tablet 10 mg PO DAILY 12/31/21 12/31/21 Unknown History venlafaxine 150 mg 150 mg PO DAILY 12/31/21 12/31/21 Unknown History capsule,extended release 24 hr Allergies Allergy/AdvReac Type Severity Reaction Status Date / Time nitrofurantoin Allergy Intermediate Nausea and Verified 12/03/24 10:04 Vomiting sulfamethoxazole Allergy Intermediate Nausea and Verified 12/03/24 10:04 Vomiting PMF Past Medical History Medical History (Updated 12/03/24 @ 12:49 by Chinyere Tierney MD) Arachnoid cyst Diabetes Transient ischemic attack (TIA) Surgical History Surgical History (Updated 12/03/24 @ 12:49 by Chinyere Tierney MD) SLUBBER OPERATOR (ventriculoperitoneal) shunt status Social History Social History Years smoked: 4 Smoking status: Former smoker Tobacco type: pipe Second hand tobacco smoke exposure: No Alcohol intake: former Drinks per week: 1 Substance use: never Substance use type: does not use Spiritual care concerns: No Exam 2 Const: General: cooperative, well developed and alert Nutritional Appearance: average body habitus Orientation/consciousness: oriented to person HENMT: Head: normal to inspection Face and sinus: flattened naso-labial fold present (left) Mouth: Yes Normal oral and palatal mucosa present, Yes lip normal, Yes tongue normal, Yes oropharynx normal and Yes moist mucous membranes Eyes: Alignment and Position: alignment normal Conjunctivae: conjunctivae normal Pupils: Equal, round and reactive pupils present EOM: EOMs intact bilaterally Chest: Chest palpation & inspection: normal inspection of the chest Resp: Effort & Inspection: normal respiratory effort Auscultation: clear to auscultation bilaterally Cardio: Rate: regular rate Rhythm: regular rhythm Skin: General skin exam: normal color Neuro: General: oriented to person Speech: dysarthria Gait exam (Neuro): Unable to assess gait Motor exam (neuro): Abnormal motor strength present (left leg 3/4. right arm and leg 4/5) and Abnormal muscle tone present (left arm contracture) Psych: Appearance: grossly normal Mental Status: mental status grossly normal Course Reevaluation(s) Reevaluation #1: Patient's has arrived. She reports patient has left facial droop at baseline but his speech is normally clear. She reports his neurosurgeon is at [facility]. It is unclear if patient's deficits are new. Unlikely CVA but will send out for assessment. TNK not recommended at this time due to unclear cause and time. More likely due to his SLUBBER OPERATOR shunt or intracranial mass Date: 12/03/24 Time: 10:04 Consultations Consultation #1: I spoke with U stroke who wants shunt series. Date: 12/03/24 Time: 09:37 Consultation #2: We called [facility] as his is now here and states doctors at [facility]. call center reports Dr. Johnson with [facility] NSGY wants patient sent to ER for evaluation at [facility]. ED [facility] Dr. Garcia accepts Date: 12/03/24 Time: 10:37 Vital Signs Vital signs: Vital Signs Pulse Rate 80 12/03/24 09:15 Respiratory Rate 15 12/03/24 09:15 Pulse Oximetry 97 12/03/24 09:15 Temperature 98.7 F 12/03/24 09:32 Pulse Rate 74 12/03/24 12:17 Respiratory Rate 17 12/03/24 12:17 Blood Pressure 172/84 H 12/03/24 12:17 Pulse Oximetry 96 12/03/24 12:17 Oxygen Delivery Room Air 12/03/24 09:32 Transfer Transfered to: [facility] Transportation: ALS MDM - Neuro Symptoms/Deficit Differential Diagnosis Differential diagnosis: Likely subarachnoid hemorrhage, cerebrovascular accident, transient cerebral ischemia and other (intracranial mass) Lab Data Attestation: I reviewed the patient's lab results. 12/03/24 09:41 12/03/24 09:41 Labs: Lab Results 12/03/24 12/03/24 12/03/24 Range/Units 09:30 09:41 10:35 WBC 8.4 (4.5-10.0) K/mm3 RBC 4.75 (4.6-6.20) M/mm3 Hgb 14.0 (14.0-18.0) g/dL Hct 43.2 (42.0-52.0) % MCV 90.9 (80-100) fl MCH 29.5 (26-34) pg MCHC 32.4 (32-36) g/dl RDW 14.4 (11.5-14.5) % Plt Count 205 (150-375) k/mm3 MPV 9.1 (7.4-10.4) fl Immature Gran % (Auto) 0.4 (0-0.5) % Neut % (Auto) 69.1 (45.5-73.1) % Lymph % (Auto) 18.6 (18.3-44.2) % Harnett % (Auto) 7.8 (2.6-8.5) % Eos % (Auto) 3.3 (0-4.4) % Baso % (Auto) 0.8 (0.2-1.2) % Lymph # (Auto) 1.57 (0.9-3.2) K/mm3 Harnett # (Auto) 0.7 H (0.1-0.6) K/mm3 Eos # (Auto) 0.3 (0-0.3) K/mm3 Baso # (Auto) 0.1 (0.0-0.1) K/mm3 Abs Immat Gran (auto) 0.03 (0.00-0.031) K/mm3 Absolute Neuts (auto) 5.8 (1.3-6.7) K/mm3 Absolute Nucleated RBC 0.000 (0.0-0.012) K/mm3 Nucleated RBC % 0.0 (0.0-0.2) % PT 13.2 (11.1-14.7) Seconds INR 1.0 APTT 22.9 (22.3-36.8) Seconds Sodium 137 (137-145) mmol/L Potassium 4.6 (3.4-5.0) mmol/L Chloride 102 (98-107) mmol/L Carbon Dioxide 26 (22-30) mmol/L Anion Gap 9 (4-12) mmol/L BUN 22 H (9-20) mg/dL Creatinine 0.94 (0.7-1.3) mg/dL Estim Creat Clear Calc 61 ml/min Estimated GFR > 60 (59 - ) Glucose 227 H (65-110) mg/dL POC Capillary Glucose 218 H (65-105) mg/dl Calcium 9.5 (8.4-10.2) mg/dL Total Bilirubin 0.8 (0.2-1.3) mg/dL AST 29 (17-59) U/L ALT 26 (6-50) U/L Alkaline Phosphatase 116 (38-126) U/L Troponin I < 0.012 (0.000-0.034) ng/mL Total Protein 7.8 (6.3-8.2) g/dL Albumin 4.3 (3.5-5.1) g/dL Urine Color (Yellow) Urine Appearance (Clear) Urine pH (5.0-9.0) Ur Specific [place] (1.001-1.035) Urine Protein (Negative) mg/dL Urine Glucose (UA) (Negative) mg/dL Urine Ketones (Negative) mg/dL Ur Blood (Man) (Negative) Urine Nitrate (Negative) Urine Bilirubin (Negative) Urine Urobilinogen (<2.0) mg/dL Leukocyte Esterase Rfl (Negative) ALEXEY/UL Urine RBC (0-2) /hpf Urine WBC (0-3) /hpf Ur Squamous Epith Cells (Few) /hpf Urine Bacteria /hpf Urine Casts 12/03/24 Range/Units 10:52 WBC (4.5-10.0) K/mm3 RBC (4.6-6.20) M/mm3 Hgb (14.0-18.0) g/dL Hct (42.0-52.0) % MCV (80-100) fl MCH (26-34) pg MCHC (32-36) g/dl RDW (11.5-14.5) % Plt Count (150-375) k/mm3 MPV (7.4-10.4) fl Immature Gran % (Auto) (0-0.5) % Neut % (Auto) (45.5-73.1) % Lymph % (Auto) (18.3-44.2) % Harnett % (Auto) (2.6-8.5) % Eos % (Auto) (0-4.4) % Baso % (Auto) (0.2-1.2) % Lymph # (Auto) (0.9-3.2) K/mm3 H[place]ett # (Auto) (0.1-0.6) K/mm3 Eos # (Auto) (0-0.3) K/mm3 Baso # (Auto) (0.0-0.1) K/mm3 Abs Immat Gran (auto) (0.00-0.031) K/mm3 Absolute Neuts (auto) (1.3-6.7) K/mm3 Absolute Nucleated RBC (0.0-0.012) K/mm3 Nucleated RBC % (0.0-0.2) % PT (11.1-14.7) Seconds INR APTT (22.3-36.8) Seconds Sodium (137-145) mmol/L Potassium (3.4-5.0) mmol/L Chloride (98-107) mmol/L Carbon Dioxide (22-30) mmol/L Anion Gap (4-12) mmol/L BUN (9-20) mg/dL Creatinine (0.7-1.3) mg/dL Estim Creat Clear Calc ml/min Estimated GFR (59 - ) Glucose (65-110) mg/dL POC Capillary Glucose (65-105) mg/dl Calcium (8.4-10.2) mg/dL Total Bilirubin (0.2-1.3) mg/dL AST (17-59) U/L ALT (6-50) U/L Alkaline Phosphatase (38-126) U/L Troponin I (0.000-0.034) ng/mL Total Protein (6.3-8.2) g/dL Albumin (3.5-5.1) g/dL Urine Color Yellow (Yellow) Urine Appearance Clear (Clear) Urine pH 7.5 (5.0-9.0) Ur Specific [place] 1.016 (1.001-1.035) Urine Protein Trace (Negative) mg/dL Urine Glucose (UA) Negative (Negative) mg/dL Urine Ketones Trace H (Negative) mg/dL Ur Blood (Man) Trace (Negative) Urine Nitrate Negative (Negative) Urine Bilirubin Negative (Negative) Urine Urobilinogen 1.0 (<2.0) mg/dL Leukocyte Esterase Rfl 3+ H (Negative) AELXEY/UL Urine RBC 0-2 (0-2) /hpf Urine WBC 51-100 H (0-3) /hpf Ur Squamous Epith Cells None seen (Few) /hpf Urine Bacteria None seen /hpf Urine Casts 0-2 Imaging Data Radiologist's impression: ITS Impressions Head CT 12/03/24 09:10 Impression: No acute abnormality seen. No significant change from prior exam. Large presumed arachnoid cyst along the anterior left temporal and left frontal convexity, measuring 10.4 x 5.0 x 9.4 cm, with significant mass effect. There is compression of the left lateral ventricle with rightward midline shift at the 13 mm, similar to prior exam. Stable ventriculostomy shunt catheter. Stable chronic encephalomalacia in the right basal ganglia and right insular cortex region. Case discussed with Dr. Tierney at 9:15 AM on 12/03/2024. Imaging Shunt Series 12/03/24 10:17 IMPRESSION: 1. No kinks or discontinuities along the course of a left-sided ventriculoperitoneal shunt catheter the proximal tip which extends across midline project over the expected region of the right lateral ventricle. 2. Indeterminate approximately 2 cm nodular opacity right midlung zone. Recommend chest CT for further evaluation. Discharge Plan Discharge Clinical Impression: Slurred speech, Intracranial arachnoid cyst, S/P SLUBBER OPERATOR shunt Patient Disposition: Acute Care Hospital Condition: Guarded Prognosis Patient Language: Greek Prescriptions: No Action docusate sodium 100 mg Tablet 100 mg PO 2XW venlafaxine 150 mg capsule,extended release 24hr 150 mg PO DAILY lisinopril 10 mg tablet 10 mg PO DAILY ketoconazole 2 % cream 1 applic TOPICAL DAILY ondansetron 4 mg tablet,disintegrating 4 mg PO Q8H PRN (Reason: nausea and vomiting) Qty: 14 0RF ciprofloxacin HCl [Cipro] 500 mg tablet 500 mg PO Q12H Qty: 6 0RF albuterol sulfate 90 mcg/actuation HFA aerosol inhaler 2 puff inhalation Q4-6H PRN (Reason: shortness of breath or wheezing) 30 Days Qty: 8.5 0RF guaifenesin [Mucinex] 600 mg tablet extended release 12hr 600 mg PO BID PRN (Reason: congestion) 7 Days Qty: 14 0RF atorvastatin 40 mg tablet 40 mg PO DAILY levetiracetam 500 mg tablet 500 mg PO BID clopidogrel 75 mg tablet 75 mg PO DAILY amlodipine [Norvasc] 5 mg tablet 5 mg PO DAILY finasteride 5 mg tablet 5 mg PO DAILY Jardiance 10 mg tablet 25 mg PO DAILY acetaminophen 325 mg Tablet 325 mg PO Q6H PRN (Reason: Pain) hydrocortisone 2.5 % Lotion 1 applic TOPICAL HS Centrum Silver Men 1 tab-cap PO DAILY Follow-up/Referrals: Yumiko,Ruthie [Other] Quality Stroke Scale Stroke Scale 1: 1a Level of consciousness: alert-0 1b Level of consciousness questions: answers none correctly-2 1c Level of consciousness commands: obeys both correctly-0 2 Best gaze: normal-0 3 Visual: no visual loss-0 4 Facial palsy: minor paralysis-1 5a Motor: left arm: no movement-4 5b Motor: right arm: drift-1 6a Motor: left leg: some effort/gravity-2 6b Motor: right leg: no drift-0 7 Limb ataxia: absent-0 8 Sensory: pinprick less sharp-1 9 Best language: some loss of fluency-1 10 Dysarthria: slurs some words-1 11 Extinction and inattention: partial inattention-1 Level:: 14
--- OUTSIDE RECORDS SUMMARY | 2024-12-03 09:33 | XMS_ITS | Encounter Summary ---
Author Organization [facility] Address [address] [place] [address] Phone Care Team Providers Care Data Entry Clerk Name Role Phone Julian Verde MD Primary Care Provider [phone] Rachele Daley OT Unavailable [phone] Ruthie Armas Unavailable [phone] Kimberly Navarrete MD Primary Care Provider Rachele Daley OT Unavailable [phone] Ruthie Armas Unavailable [phone] Ruthie Calderon FREIGHT SOLICITOR Primary Care Provider Liam FONTAINE MD, Robert Clayton Unavailable Sadie Puri NP Primary Care Provider [phone] Yamilka Matos MD Unavailable [phone] Gloria Canales FREIGHT SOLICITOR Unavailable [phone] Scarlet Cardenas MD Unavailable [phone] Encounter Details Date Type Department Care Team (Latest Contact Info) Description 04/02/2017 Orders Only [facility] CONVERSION Scanning, Provider Social History Tobacco Use Types Packs/Day Years Used Date Smoking Tobacco: Former Sex and Gender Information Value Date Recorded Sex Assigned at Not on file Legal Sex Male 7:29 AM ADJUNCT PSYCHOLOGY PROFESSOR Gender Identity Male 09/01/2020 11:55 AM CDT Sexual Orientation Straight 09/01/2020 11 :55 AM CDT documented as of this encounter Plan of Treatment Not on file documented as of this encounter Procedures Procedure Name Priority Date/Time Associated Diagnosis Comments VASCULAR LABORATORY REPORT 04/02/2017 11:20 AM ADJUNCT PSYCHOLOGY PROFESSOR documented in this encounter Results * VASCULAR LABORATORY REPORT (04/02/2017 11:20 AM ADJUNCT PSYCHOLOGY PROFESSOR) Anatomical Region Laterality Modality Ultrasound us Provider Scanning CV VASCULAR PROCEDURES Final R esult documented in this encounter Visit Diagnoses Not on filedocumented in this encounter Additional Health Concerns Infection Onset Date Last Indicated Resolved Time COVID: Suspected 08/16/2023 08/16/2023 08/16/2023 8:55 PM CDT documented as of this encounter Care Teams Data Entry Clerk Relationship Specialty Start Date End Date Julian Verde MD PCP - General 04/01/17 10/25/18 Kimberly Navarrete MD PCP - General Internal Medicine 10/26/18 02/23/21 uRthie Calderon, JUNE PCP - General Nurse Practitioner 02/24/21 06/07/24 Sadie Puri, JUNE [address] [address] PCP - General Internal Medicine 11/30/24 Rachele Daley OT Occupational Therapist Occupational Therapy 10/24/18 1 Ruthie Armas, DUDLEY Speech Language Pathologist Speech Therapy 10/26/18 01/15/19 Rachele Daley OT Occupational Therapist Occupational Therapy 05/19/20 1 05/15/20 Ruthie Armas, DUDLEY Speech Language Pathologist Speech Therapy 05/29/20 02/12/21 Yaw Wheeler III, MD [address] [place] [address] Referring Physician Urology 02/17/22 11/29/24 Yamilka Matos MD [address] [address] Consulting Physician Nephrology 11/30/24 Gloria Canales NP [address] [place] [address] Nurse Practitioner Neurosurgery 11/30/24 Scarlet Cardenas MD [address] [place] [address] Consulting Physician Urology 11/30/24 documented as of this encounter
--- OUTSIDE RECORDS SUMMARY | 2024-12-03 09:33 | XMS_ITS | Encounter Summary ---
Author Organization [facility] Address [address] [place] [address] Care Team Providers Care Carpenter Repair Name Role Phone Kimberly Navarrete MD Primary Care Provider Reason for Visit * Reason Onset Date Comments General 08/10/2017 Request to sign orders Encounter Details Date Type Department Care Team (Late st Contact Info) Description 08/10/2017 Telephone [facility] Internal Medicine [address] [address] Luis Carlos Belle (Request to sign orders) Social History Tobacco Use Types Packs/Day Years Used Date Smoking Tobacco: Never Smokeless Tobacco: Never Alcohol Use Standard Drinks/Week Comments No 0 (1 standard drink = 0.6 oz pur e alcohol) Sex and Gender Information Value Date Recorded Sex Assigned at Male 03/04/2022 10:00 AM TILE AND MARBLE SETTER Legal Sex Male 5:48 PM TILE AND MARBLE SETTER Gender Identity Not on file Sexual Orientation Not on file documented as of this encounter Miscellaneous Notes * Telephone Encounter - Luis Carlos Belle - 08/12/2017 3:22 PM CDT Anitha calling back to request again the the following documents with order numbers [id number], [id number], [id number] dated in media file on 07-28-17 at 3pm be signed by the physician. Routed to paperwork department. Please have physician sign and fax back. CB #: [phone] * Telephone Encounter - Marylou Saba LPN - 08/10/2017 10:46 AM CDT Forms printed from [employer] and placed in providers box. * Telephone Encounter - Luis Carlos Belle - 08/10/2017 10:08 AM CDT Anitha from [facility] called requesting that 3 orders with the followingdocument numbers be signed: [id number], [id number], [id number]. The orders were found in the media file and dated 07-28-17 at 3:00pm. Requested routed to paperwork department. CB: [phone] documented in this encounter Plan of Treatment Not on file documented as of this encounter Visit Diagnoses Not on filedocumented in this encounter Additional Health Concerns Infection Onset Date Last Indicated Resolved Time COVID-19 Under Investigation 11/20/2023 11/20/2023 11/20/2023 10:51 PM CDT COVID-19 Confirmed 11/20/2023 11/20/2023 4:33 AM CDT documented as of this encounter Care Teams Carpenter Repair Relationship Specialty Start Date End Date Kimberly Navarrete MD PCP - General 07/17/17 documented as of this encounter
--- OUTSIDE RECORDS SUMMARY | 2024-12-03 09:33 | XMS_ITS | Encounter Summary ---
Author Organization [facility] Healthcare Address [address] [place] [address] Care Team Providers Care Brush And Broom Clipper Name Role Phone Sadie Puri NP Primary Care Provider [phone] Yamilka Matos MD Unavailable [phone] Gloria Canales NP Unavailable [phone] Scarlet Cardenas MD Unavailable [phone] Reason for Visit * Reason Onset Date Comments Medical Question/Miscellaneous 12/03/2024 Encounter Details Date Type Department Care Team (Late st Contact Info) Description 12/03/2024 Telephone [facility] Primary Care at [address] [address] Sadie Puri NP [address] [place] [address] [address] [place] [address] Medical Question/Miscellaneous Social History Tobacco Use Types Packs/Day Years Used Date Smoking Tobacco: Former Pipe 1 965 - 1979 Passive Smoke Exposure: Past Smokeless Tobacco: Never Alcohol Use Standard Drinks/Week Comments Yes 0 (1 standard drink = 0.6 oz pur e alcohol) Occasionally [facility] Utilities Answer Date Recorded In the past 12 months has e electric, gas, oil, or water company threatened to shut off services in your home? No 09/04/2023 Social Connection and Isolation Panel Answer Date Recorded In a typical week, how many times do you talk on the phone with family, friends, or neighbors? More than three times a week 09/04/2023 How often do you get togethe r with friends or relatives? Once a week 09/04/2023 How often do you attend chur ch or rastafarian services? 1 to 4 times per year 09/04/2023 Do you belong to any clubs o r organizations such as temple groups, unions, fraternal or athletic groups, or [...] more points, staff should administer the PHQ-9) 2 11/30/2024 Hunger Vital Sign Answer Date Recorded Within [...] place to sleep or slept in a intermediate (including now)? Patient unable to answer 09/01/2023 [...] any time in the past 12 m ont, were you homeless or living in a intermediate (including now)? Patient unable to answer 09/05/2023 Personal Safety Answer Date Recorded Have you ever been in or are you currently in a harmful physical or emotional relationship or is someone making you feel afraid or unsafe? Denies 09/03/2023 Sex and Gender Information Value Date Recorded Sex Assigned at Not on file Legal Sex Male 7:29 AM RACING MANAGER Gender Identity Male 09/01/2020 11:55 AM CDT Sexual Orientation Straight 09/01/2020 11 :55 AM CDT documented as of this encounter Miscellaneous Notes * Telephone Encounter - Darcy Guido - 12/03/2024 8:54 AM CDT Medical Question/Miscellaneous Caller???s Concern: Lilia with [facility] called to give FYI message to PCP that she [facility]. Does message need to be routed? Yes-FYI Only documented in this encounter Plan of Treatment Not on file documented as of this encounter Visit Diagnoses Not on filedocumented in this encounter Care Teams Brush And Broom Clipper Relationship Specialty Start Date End Date Sadie Puri NP [address] [place] [address] PCP - General Internal Medicine 11/30/24 Yamilka Matos MD [address] [address] Consulting Physician Nephrology 11/30/24 Gloria Canales NP [address] [place] [address] Nurse Practitioner Neurosurgery 11/30/24 Scarlet Cardenas MD [address] [place] [address] Consulting Physician Urology 11/30/24 documented as of this encounter
--- OUTSIDE RECORDS SUMMARY | 2024-12-03 09:33 | XMS_ITS | Encounter Summary ---
Author Organization [facility] Address [address] [place] [address] Care Team Providers Care Chute Tender Name Role Phone Kimberly Navarrete MD Primary Care Provider Encounter Details Date Type Department Care Team (Late st Contact Info) Description 09/16/2017 Telephone [facility] General Internal Medicine [address] [facility] [address] [place] [address] Kimberly Navarrete MD [address] [facility] [address] [place], [place] [id number] Social History Tobacco Use Types Packs/Day Years Used Date Smoking Tobacco: Never Smokeless Tobacco: Never Alcohol Use Standard Drinks/Week Comments No 0 (1 standard drink = 0.6 oz pur e alcohol) Sex and Gender Information Value Date Recorded Sex Assigned at Male 03/04/2022 10:00 AM PLASMA CENTER TECHNICIAN Legal Sex Male 5:48 PM PLASMA CENTER TECHNICIAN Gender Identity Not on file Sexual Orientation [...] documented as of this encounter Care Teams Chute Tender Relationship Specialty Start Date End Date Kimberly Navarrete MD PCP - General 07/17/17 documented as of this encounter
--- OUTSIDE RECORDS SUMMARY | 2024-12-03 09:33 | XMS_ITS ---
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 Role Phone UlisesVeronika lemus Unavailable Unavailable Martell Sherman Unavailable Unavailable Allergies and adverse reactions No Known Allergies Care Team Name Role Address Phone Organization Dates Martell Sherman PCP [address], [place], [place], [facility], [facility] (Office): : : Niko Niko 09/22/2023 - 10/01/2023 Veronika Montgomery [address], [place], [place], [facility], [facility] (Office): : Niko Niko 09/22/2023 - 10/01/2023 Immunizations Immunization Status Vaccine Details Vaccine Code CodeSystem Date Notes TB 2 Step Mantoux Skin Test completed tuberculin skin test; unspecified formulation lotNumber: [id number] expiry: 06/15/2026 Mfg: SANOFI PASTEUR limited Given 0.1 ml Right Forearm intradermally Step 1 of Multi-step with next step required 98 CVX created date: 09/28/2023 consent date: 09/28/2023 administer ed date: 09/28/2023 Educated by Robbin Elder on 09/28/2023 SARS-COV-2 (COVID-19) completed SARS-COV-2 (COVID-19) vaccine, mRNA, spike protein, LNP, preservative free, 100 mcg/0.5mL dose or 50 mcg/0.25mL dose lotNumber: [id number] expiry: 03/01/2021 Mfg: moderna Given intramuscularly Step 2 of Multi-step with next step required 207 CVX created date: 09/28/2023 administer ed date: 07/18/2020 SARS-COV-2 (COVID-19) completed SARS-COV-2 (COVID-19) vaccine, mRNA, spike protein, LNP, preservative free, 25 mcg/0.25 mL dose lotNumber: [id number] expiry: 12/05/2020 Mfg: moderna Given intramuscularly Step 1 of Multi-step with next step required 311 CVX created date: 09/28/2023 administer ed date: 06/20/2020 PCV20 completed Pneumococcal conjugate vaccine 20-valent (PCV20), polysaccharide [id number] conjugate, adjuvant, preservative free lotNumber: [id number] Mfg: PFR Given intramuscularly 216 CVX created date: 09/28/2023 administer ed date: 03/04/2022 SARS-COV-2 Booster (COVID-19 Booster) completed SARS-COV-2 (COVID-19) vaccine, mRNA, spike protein, LNP, preservative free, 100 mcg/0.5mL dose or 50 mcg/0.25mL dose lotNumber: [id number] Mfg: Pfizer Booster Given intramuscularly 207 CVX created date: 09/28/2023 administer ed date: 02/19/2021 Pfizer BiValent Booster completed SARS-COV-2 (COVID-19) vaccine, mRNA, spike protein, LNP, bivalent, preservative free, 30 mcg/0.3 mL dose, daniel-sucrose formulation lotNumber: [id number] Mfg: Pfizer BiValent Booster Given intramuscularly 300 CVX created date: 09/28/2023 administer ed date: 02/05/2022 influenza, injectable, quadrivalent, preservative free completed Influenza, split virus, quadrivalent, injectable, preservative free lotNumber: [id number] Mfg: PMC Given intramuscularly 150 CVX created date: 09/28/2023 administer ed date: 01/27/2023 influenza, injectable, quadrivalent, preservative free completed Influenza, split virus, quadrivalent, injectable, preservative free lotNumber: [id number] Mfg: PMC Given intramuscularly 150 CVX created date: 09/28/2023 administer ed date: 02/04/2022 influenza, injectable, quadrivalent, preservative free completed Influenza, split virus, quadrivalent, injectable, preservative free lotNumber: [id number] Mfg: PMC Given intramuscularly 150 CVX created date: 09/28/2023 administer ed date: 04/02/2021 influenza, injectable, quadrivalent, preservative free completed Influenza, split virus, quadrivalent, injectable, preservative free lotNumber: [id number] Mfg: PMC Given intramuscularly 150 CVX created date: 09/28/2023 administer ed date: 02/01/2020 influenza, injectable, quadrivalent, preservative free completed Influenza, split virus, quadrivalent, injectable, preservative free lotNumber: [id number] Mfg: SKB Given intramuscularly 150 CVX created date: 09/28/2023 administer ed date: 01/11/2019 Mental Status Section Date Assessment Total Score Description 10/01/2023 CAM 0 No delirium ind icated 09/29/2023 BIMS 08 moderate cognit dennys impairment CAM 0 No delirium ind icated PHQ-9 21 severe depressi on Problems Problem # Description Date of onset Resolved Date Code CodeSystem Concern Status 1 (IDIOPATHIC) NORMAL PRESSURE HYDROCEPHALUS 09/26/[address] active 2 OVERACTIVE BLADDER 09/26/2023 383439040 SNOMED C T active 3 ABNORMAL POSTURE 09/22/[address] a ctive 4 ALTERED MENTAL STATUS, UNSPECIFIED 09/22/[address] active 5 BENIGN PROSTATIC HYPERPLASIA WITHOUT LOWER URINARY TRACT SYMPTOMS 09/22/[address] active 6 ESSENTIAL (PRIMARY) HYPERTENSION 09/22/[address] active 7 GASTRO-ESOPHAGEAL REFLUX DISEASE WITHOUT ESOPHAGITIS 09/22/[address] active 8 HEMIPLEGIA AND HEMIPARESIS FOLLOWING CEREBRAL INFARCTION AFFECTING LEFT NON-DOMINANT SIDE 09/22/[address] active 9 HYDROCEPHALUS, UNSPECIFIED 09/22/[address] active 10 HYPERLIPIDEMIA, UNSPECIFIED 09/22/[address] active 11 OTHER MECHANICAL COMPLICATION OF VENTRICULAR INTRACRANIAL (COMMUNICATING) SHUNT, SUBSEQUENT ENCOUNTER 09/22/[address] active 12 OTHER SEIZURES 09/22/[address] act dennys 13 OTHER SPEECH AND LANGUAGE DEFICITS FOLLOWING CEREBRAL INFARCTION 09/22/[address] active 14 TYPE 2 DIABETES MELLITUS WITHOUT COMPLICATIONS 09/22/[address] active 15 UNSTEADINESS ON FEET 09/22/[address] active 16 WEAKNESS 09/22/[address] active Reason for Referral No Reasons for Referral Entered Social History Social History Observation Description Start Date End Date Code Code System Current Smoking Status Tobacco smoking consumption unknown 841559644 SNOMED CT Sex Assigned At Male 1945 31044-2 [facility] Gender Identity Vital Signs Code Code System Vitals Name Values and Units Timing Information 54775-2 [facility] Pain Level Value=0.0 09/30/2023 8302-2 [facility] Height Value=70.0 Units=Inches 09/30/2023 2339-0 [facility] Blood Sugar Qxvga=638.0 Units=mg/dL 09/30/2023 8462-4 [facility] Blood Pressure-Diastolic Value=70 Un its=mmHg 09/30/2023 8480-6 [facility] Blood Pressure-Systolic Yltws=524 Un its=mmHg 09/30/2023 11012-9 [facility] Weight Sxham=458.0 Units=Lbs 01/2024 9279-1 [facility] Respiratory Rate Value=18.0 Units=/m in 09/22/2023 8867-4 [facility] Heart rate Value=90.0 Units=/min 09/2023 95761-6 [facility] O2 % BldC Oximetry Value=97.0 Units= % 09/22/2023 8310-5 [facility] Body Temperature Value=97.2 Units= F 09/22/2023
--- OUTSIDE RECORDS SUMMARY | 2024-12-03 09:33 | XMS_ITS ---
Author Name Auto Generated, Auto Generated Organization [facility] ices Address [address] [place] [address] Phone [phone] Care Team Providers Care Racing Manager Name Role Phone Jacquelin Pena Unavailable [phone] Cole Umanzor Unavailable [phone] Functional Status No Results Mental Status No Results Allergies and Intolerances Name Onset Date Reaction Severity No Known Allergies (Allergy) TueApr 25 15:58:00 EST 2017 Medications Medication Directions Start Date End Date sertraline 50 mg tablet 1 TABLET Oral 1 Time Daily Indication: Depression Zoloft 50mg tablet 1 Time Daily TueNov 03 01:00:00 EDT 2023Nov 25 01:00:00 EDT 2023 clopidogreL 75 mg tablet 1 tab TABLET Or al 1 Time Daily Indication: anticoagulant TueOct 10 01:00:00 EDT 2023Nov 25 01:00:00 EDT 2023 TylenoL 325 mg tablet 2 tabs TABLET Oral PRN Every 4 Hours Indication: Mild Pain and Fever TueSep 29 16:23:00 EDT 2023Nov 25:00:00 EDT 2023 atorvastatin 40 mg tablet 1 tab TABLET O ral 1 Time Daily Indication: Hyperlipidemia TueSep 29 16:24:00 EDT 2023Nov 25:00:00 EDT 2023 divalproex 250 mg tablet,delayed release 3 tabs TABLET, DELAYED RELEASE (ENTERIC COATED) Oral 1 Time Daily Indication: Seizures TueSep 29 16:25:00 EDT 2023Nov 25 01:00:00 EDT 2023 docusate sodium 100 mg capsule 1 capsule CAPSULE Oral PRN 2 Times Daily Indication: Constipation TueSep 29 16:27:00 EDT 2023Nov 25:00: EDT 2023 Jardiance 25 mg tablet 1 tab TABLET Oral 1 Time Daily Indication: Type 2 DM TueSep 29 16:28:00 EDT 2023Nov 25 01:00:00 EDT 2023 finasteride 5 mg tablet 1 tab TABLET Ora l 1 Time Daily Indication: BPH TueSep 29 16:29:00 EDT 2023Nov 25 01:00:00 EDT 2023 hydrocortisone 2.5 % topical ointment as directed OINTMENT (GRAM) Topical PRN 2 Times Daily Indication: Skin Irritation/Inflammation TueSep 29 16:31:00 EDT 2023Nov 25 01:00:00 EDT 2023 ketoconazole 2 % topical cream as directed CREAM (GRAM) Topical PRN 1 Time Daily Indication: Itching TueSep 29 16:32:00 EDT 2023Nov 25 01:00:00 EDT 2023 lisinopriL 10 mg tablet 1 tab TABLET Ora l 1 Time Daily Indication: HTN TueSep 29 16:33:00 EDT 2023Nov 25 01:00: EDT 2023 Theratrum Complete 50 Plus with Lutein tablet 1 tab TABLET Oral 1 Time Daily Indication: Supplement TueSep 29 16:35:00 EDT 2023Nov 25 01:00:00 EDT 2023 pantoprazole 20 mg tablet,delayed release 1 tab TABLET, DELAYED RELEASE (ENTERIC COATED) Oral 1 Time Daily Indication: GERD TueSep 29 16:36:00 EDT 2023Nov 25:00:00 EDT 2023 tamsulosin 0.4 mg capsule 1 cap CAPSULE Oral 1 Time Daily Indication: BPH TueSep 29 16:38:00 EDT 2023Nov 25 01:00:00 EDT 2023 triamcinolone acetonide 0.1 % topical cream as directed CREAM (GRAM) Topical 2 Times Daily Indication: Rash/Redness TueSep 29 16:39:00 EDT 2023Nov 25 01:00:00 EDT 2023 cholecalciferol (vitamin D3) 50 mcg (2,000 unit) tablet 1 tab TABLET Oral 1 Time Daily Indication: Osteoporosis and Vit D deficiency TueSep 29 16:41:00 EDT 2023Nov 25 01:00:00 EDT 2023 sulfamethoxazole 800 mg-trimethoprim 160 mg tablet 1tab (TABLET) Oral 2 Times Daily TueJul 11 01:00:00 EDT 2017Jul 16 00:59:00 EDT 2017 Proscar 5 mg tablet 1 tab (TABLET) Oral Every 1 Day TueJul 08 01:00:00 EDT 2017Jul 22:00:00 EDT 2017 metoclopramide 5 mg tablet 1 tab (TABLET ) Oral PRN as directed by ER doctor for nausea. TueJun 09 01:00:00 2017Jul 22 01:00:00 EDT 2017 Flomax 0.4 mg capsule 2 caps (CAPSULE, E XT RELEASE 24 HR) Oral Every 1 Day TueJun 09 01:00:00 2017Jul 22:00:00 EDT 2017 Zofran ODT 8 mg disintegrating tablet 1 tab (TABLET,DISINTEGRATING) Sublingual PRN Every 8 Hours nausea TueJun 04:00:00 2017Jul 22 01:00:00 EDT 2017 Multiple Vitamins tablet 1 tab (TABLET) Oral Every 1 Day TueMay 25 01:00:00 2017Jul 22 01:00:00 ED2017 heparin (porcine) 5,000 unit/mL (1 mL) injection cartridge 1 ML (CARTRIDGE (ML)) Subcutaneous 2 Times Daily TueMay 25:00:00 2017Jun 06:00:00 2017 FLUoxetine 40 mg capsule 1 tab (CAPSULE) Oral Every 1 Day TueMay 25:00:00 2017Jul 22:00:00 EDT 2017 pantoprazole 40 mg tablet,delayed release 1 tab (TABLET, DELAYED RELEASE (ENTERIC COATED Oral Every 1 Day TueMay 25 01:00:00 2017Jun 06:00:00 2017 HumaLOG 100 unit/mL subcutaneous solution 0-8 units (VIAL (ML)) Subcutaneous 3 Times Daily for blood sugars 60-150= 0 units, 151-200=1 unit, 201-250=2 units, 251-300 units=4 units, 301-350 units=6 units, 351-400=8 units. if above 400 call TueMay 25:00:00 2017Jun 06:00:00 EST 2017 lisinopril 10 mg tablet 1 tab (TABLET) O ral Every 1 Day TueMay 25:00:00 EST 2017Jun 06:00:00 EST 2017 gabapentin 300 mg capsule 1 cap (CAPSULE ) Oral 3 Times Daily TueMay 25:00:00 EST 2017Jun 06:00:00 EST 2017 tamsulosin 0.4 mg capsule 1 cap (CAPSULE , EXT RELEASE 24 HR) Oral Every 1 Day TueMay 25:00:00 EST 2017Jun 06:00:00 EST 2018 baclofen 10 mg tablet 1/2 tab (TABLET) O ral 3 Times Daily TueMay 25:00:00 2017Jun 06:00:00 EST 2017 Tylenol 325 mg tablet 2 tabs (TABLET) Or al PRN Every 4 Hours constipation TueMay 25:00:00 EST 2017Jul 22 01:00:00 EDT 2018 Miralax 17 gram/dose oral powder 17g (POWDER (GRAM)) Oral PRN Every 1 Day constipation TueMay 25:00:00 EST 2017Jul 22 01:00:00 EDT 2018 amLODIPine 10 mg tablet 1 tab (TABLET) O ral Every 1 Day TueMay 25:00:00 2017Jun 06:00:00 EST 2017 atorvastatin 40 mg tablet 1 tab (TABLET) Oral Every 1 Day TueMay 25:00:00 2017Jul 22 01:00:00 EDT 2018 aspirin 81 mg tablet,delayed release 1 tab (TABLET, DELAYED RELEASE (ENTERIC COATED Oral Every 1 Day TueMay 25:00:00 2017Jul 22 01:00:00 EDT 2018 Plavix 75 mg tablet 1 tab (TABLET) Oral Every 1 Day TueMay 25 01:00:00 EST 2017Jul 22 01:00:00 EDT 2018 Senna Laxative-Stool Softener 8.6 mg-50 mg tablet 1 tab (TABLET) Oral PRN Every 1 Day constipation TueMay 25:00:00 2017Jun 10 16:01:00 EST 2017 metFORMIN 500 mg tablet 1 tab (TABLET) O ral Every 1 Day TueMay 25:00:00 EST 2017Jun 06:00:00 EST 2018 Zofran ODT 8 mg disintegrating tablet 1 TABLET,DISINTEGRATING Sublingual PRN Every 8 Hours Sat May 14 12:00:00 2017May 24 01:00:00 EST 2018 Novofine Autocover 30 gauge x 1/3 needle needles NEEDLE, DISPOSABLE Subcutaneous Continuous Sat May 07 13:00:00 2017May 24 01:00:00 EST 2018 pantoprazole 40 mg tablet,delayed release 1 TABLET, DELAYED RELEASE (ENTERIC COATED) Oral 1 Time Daily GERD TueApr 28 09:00:00 2017May 24 01:00:00 EST 2018 multivitamin tablet 1 tab TABLET Oral 1 Time Daily TueApr 28 01:00:00 2017May 24 01:00:00 EST 2017 methylphenidate 5 mg tablet 5mg TABLET O ral 2 Times Daily TueApr 25 21:00:00 2017Apr 25 16:39:00 2017 ipratropium-albuterol 0.5 mg-3 mg(2.5 mg base)/3 mL nebulization soln 1 vial AMPUL FOR NEBULIZATION (ML) Nebulization PRN 4 Times Daily TueApr 25 16:00:00 2017May 24:00:00 EST 2017 amLODIPine 10 mg tablet 10mg TABLET Oral 1 Time Daily TueApr 26 09:00:00 2017May 24 01:00:00 EST 2017 atorvastatin 40 mg tablet 40mg TABLET Or al 1 Time Daily TueApr 25 21:00:00 2017May 24 01:00:00 EST 2018 Aspirin Childrens 81 mg chewable tablet 81mg TABLET, CHEWABLE Oral 1 Time Daily TueApr 26 09:00:00 2017May 24 01:00:00 EST 2018 clopidogrel 75 mg tablet 75mg TABLET Ora l 1 Time Daily TueApr 26 09:00:00 2017May 24 01:00:00 EST 2018 Senna with Docusate Sodium 8.6 mg-50 mg tablet 1 tab TABLET Oral 1 Time Daily TueApr 25 21:00:00 2017May 24 01:00:00 EST 2018 metFORMIN 500 mg tablet 500mg TABLET Ora l 1 Time Daily TueApr 26 09:00:00 EST 2017May 24 01:00:00 EST 2018 polyethylene glycol 3350 17 gram/dose oral powder 17gram POWDER (GRAM) Oral 1 Time Daily TueApr 26 09:00:00 2017May 24 01:00:00 EST 2018 acetaminophen 325 mg tablet 650mg TABLET Oral PRN Every 4 Hours TueApr 25 16:00:00 2017May 24 01:00:00 2017 baclofen 10 mg tablet 5mg TABLET Oral 3 Times Daily TueApr 25 21:00:00 2017May 24 01:00:00 EST 2017 FLUoxetine 40 mg capsule 40mg CAPSULE Or al 1 Time Daily TueApr 26 09:00:00 2017Apr 28 22:27:00 EST 2018 bisacodyl 10 mg rectal suppository 10mg SUPPOSITORY, RECTAL Rectal PRN Every 3 Days TueApr 25 16:00:00 2017May 24 01:00:00 2018 heparin (porcine) 5,000 unit/mL (1 mL) injection cartridge 1mL CARTRIDGE (ML) Subcutaneous 2 Times Daily TueApr 25 21:00:00 2017Apr 28 22:29:00 EST 2017 tamsulosin 0.4 mg capsule 0.4mg CAPSULE, EXT RELEASE 24 HR Oral 1 Time Daily TueApr 25 21:00:00 2017May 24 01:00:00 2017 gabapentin 300 mg capsule 300mg CAPSULE Oral 3 Times Daily TueApr 25 21:00:00 2017May 24 01:00:00 2017 lisinopril 10 mg tablet 10mg TABLET Oral 1 Time Daily TueApr 26 09:00:00 2017May 24 01:00:00 EST 2017 ondansetron 4 mg disintegrating tablet 4mg TABLET,DISINTEGRATING Oral PRN Every 4 Hours TueApr 25 16:00:00 2017Apr 28 22:31:00 EST 2018 pantoprazole 40 mg tablet,delayed release 40mg TABLET, DELAYED RELEASE (ENTERIC COATED) Oral 1 Time Daily TueApr 26 07:00:00 2017Apr 28 06:33:00 2018 Lantus 100 unit/mL subcutaneous solution 8units VIAL (ML) Subcutaneous 1 Time Daily TueApr 25 21:00:00 2017Apr 25 16:34:00 2018 HumaLOG 100 unit/mL subcutaneous solution per SSI VIAL (ML) Subcutaneous 3 Times Daily if BS <60 call [id number] = 0 [id number] = 1 [id number] = 2 [id number] = 4 -079 = 6 [id number] = 8 units> 400 call TueApr 25 18:00:00 2017May 24 01:00:00 2017 Lantus 100 unit/mL subcutaneous solution 8units VIAL (ML) Subcutaneous 1 Time Daily TueApr 25 21:00:00 2017Apr 28 22:35:00 2017 methylphenidate 5 mg tablet 5mg TABLET O ral 2 Times Daily TueApr 25 21:00:00 2017Apr 28 22:37:00 2017 TUBErsol 5 tub. unit/0.1 mL intradermal injection solution 0.1 ml VIAL (ML) Intradermal 1 Time Weekly for 2 Weeks (PPD) 1st injection upon admission. Read between 48 and 72 hours and give 2nd injection 1 week after the 1st if result is negative. If positive result, proceed with chest x-ray to rule out active disease. TueApr 26 13:00:00 2017May 10 12:59:00 2017 TUBErsol 5 tub. unit/0.1 mL intradermal injection solution Read Results VIAL (ML) Other 1 Time Weekly for 2 Weeks Read results between 48-72 hours after 1st and 2nd 1 week apart. If positive do chest x-ray to rule out active disease. TueApr 29 13:00:00 2017May 13 12:59:00 2017 FLUoxetine 40 mg capsule 40mg CAPSULE Or al 1 Time Daily depression TueApr 28 22:25:00 2017May 24 01:00:00 2017 heparin (porcine) 5,000 unit/mL (1 mL) injection cartridge 1mL CARTRIDGE (ML) Subcutaneous 2 Times Daily TueApr 28 22:30:00 2017May 24 01:00:00 2017 Lantus 100 unit/mL subcutaneous solution 8units VIAL (ML) Subcutaneous 1 Time Daily TueApr 28 22:30:00 2017May 24 01:00:00 2017 methylphenidate 5 mg tablet 5 mg 5mg TABLET Oral 2 Times Daily TueApr 28 22:30:00 2017May 24 01:00:00 2017 Problems Active Concerns * Hemiplegia and hemiparesis following cerebral infarction affecting left non- dominant side* Code: * Start Date: TueApr 25 00:00:00 2017 * End Date: * Text: * Dysphagia following cerebral infarction* Code: * Start Date: TueApr 25 00:00:00 2017 * End Date: * Text: * Presence of other vascular implants and grafts* Code: * Start Date: TueApr 25 00:00:00 2017 * End Date: * Text: * Gastrostomy status* Code: * Start Date: TueApr 25 00:00:00 2017 * End Date: * Text: * Essential (primary) hypertension* Code: * Start Date: TueApr 25 00:00:00 2017 * End Date: * Text: * Type 2 diabetes mellitus without complications* Code: * Start Date: TueApr 25 00:00:00 2017 * End Date: * Text: * Gastro-esophageal reflux disease without esophagitis* Code: * Start Date: TueApr 25 00:00:00 2017 * End Date: * Text: * 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* Code: * Start Date: TueApr 25 00:00:00 2017 * End Date: * Text: * FDC (current) use of antithrombotics/antiplatelets* Code: * Start Date: TueApr 25 00:00:00 2017 * End Date: * Text: * FDC (current) use of insulin* Code: * Start Date: TueApr 25 00:00:00 2017 * End Date: * Text: * Dysphagia, unspecified* Code: * Start Date: TueMay 25 00:00:00 2017 * End Date: * Text: * Hypertensive chronic kidney disease with stage 1 through stage 4 chronic kidney disease, or unspecified chronic kidney disease* Code: * Start Date: TueSep 29 00:00:00 EDT 2023 * End Date: * Text: * Type 2 diabetes mellitus with diabetic chronic kidney disease* Code: * Start Date: TueSep 29 00:00:00 EDT 2023 * End Date: * Text: * 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* Code: * Start Date: TueSep 29 00:00:00 EDT 2023 * End Date: * Text: * Benign prostatic hyperplasia without lower urinary tract symptoms* Code: * Start Date: TueSep 29 00:00:00 EDT 2023 * End Date: * Text: * Cerebral cysts* Code: * Start Date: TueSep 29 00:00:00 EDT 2023 * End Date: * Text: * (Idiopathic) normal pressure hydrocephalus* Code: * Start Date: TueSep 29 00:00:00 EDT 2023 * End Date: * Text: * Personal history of other venous thrombosis and embolism* Code: * Start Date: TueSep 29 00:00:00 EDT 2023 * End Date: * Text: * Personal history of urinary (tract) infections* Code: * Start Date: TueSep 29 00:00:00 EDT 2023 * End Date: * Text: * Chronic kidney disease, stage 3a* Code: * Start Date: TueSep 29 00:00:00 EDT 2023 * End Date: * Text: * Secondary hyperparathyroidism of renal origin* Code: * Start Date: TueSep 29 00:00:00 EDT 2023 * End Date: * Text: * Anemia in chronic kidney disease* Code: * Start Date: TueSep 29 00:00:00 EDT 2023 * End Date: * Text: * Unspecified urinary incontinence* Code: * Start Date: TueSep 29 00:00:00 EDT 2023 * End Date: * Text: * Emotional lability* Code: * Start Date: TueSep 29 00:00:00 EDT 2023 * End Date: * Text: * Personal history of nicotine dependence* Code: * Start Date: TueSep 29 00:00:00 EDT 2023 * End Date: * Text: * Personal history of malignant neoplasm, unspecified* Code: * Start Date: TueSep 29 00:00:00 EDT 2023 * End Date: * Text: * Mixed hyperlipidemia* Code: * Start Date: TueSep 29 00:00:00 EDT 2023 * End Date: * Text: * Other seizures* Code: * Start Date: TueSep 29 00:00:00 EDT 2023 * End Date: * Text: * Hemiplegia and hemiparesis following unspecified cerebrovascular disease affecting left dominant side* Code: * Start Date: TueOct 06 00:00:00 EDT 2023 * End Date: * Text: * Cerebral infarction, unspecified* Code: * Start Date: TueOct 06 00:00:00 EDT 2023 * End Date: * Text: * Dysphagia, oropharyngeal phase* Code: * Start Date: TueOct 06 00:00:00 EDT 2023 * End Date: * Text: * Muscle weakness (generalized)* Code: * Start Date: TueOct 06 00:00:00 EDT 2023 * End Date: * Text: * Unsteadiness on feet* Code: * Start Date: TueOct 06 00:00:00 EDT 2023 * End Date: * Text: * Weakness* Code: * Start Date: TueOct 06 00:00:00 EDT 2023 * End Date: * Text: Reason for Referral Past Medical History
--- OUTSIDE RECORDS SUMMARY | 2024-12-03 09:33 | XMS_ITS | Encounter Summary ---
Author Organization [facility] Healthcare Address [address] [place] [address] Care Team Providers Care Curator Of Education Name Role Phone Sadie Puri NP Primary Care Provider [phone] Yamilka Matos MD Unavailable [phone] Gloria Canales NP Unavailable [phone] Scarlet Cardenas MD Unavailable [phone] Encounter Details Date Type Department Care Team (Latest Contact Info) Description 11/30/2024 Results Follow-Up [facility] Primary Care at [address] [address] Sadie Puri NP [facility] [address] [place] [address] Comprehensive metabolic panel, Lipid panel, Hemoglobin A1c, Additional followed-up results: 7 Social History Tobacco Use Types Packs/Day Years Used Date Smoking Tobacco: Former Pipe 1 965 1979 Passive Smoke Exposure: Past Smokeless Tobacco: Never Alcohol Use Standard Drinks/Week Comments Yes 0 (1 standard drink = 0.6 oz pur e alcohol) Occasionally [facility] Utilities Answer Date Recorded In the past 12 months has [employer], gas, oil, or water company threatened to [...] often do you attend chur ch or adventism services? 1 to 4 times per year 09/04/2023 Do you belong to any clubs o r organizations such as muslim groups, unions, fraternal or athletic groups, or [...] place to sleep or slept in a group home (including now)? Patient unable to answer [...] any time in the past 12 m [facility], were you homeless or living in a group home (including now)? Patient unable to answer 09/05/2023 Personal Safety Answer Date Recorded Have you ever been in or are you currently in a harmful physical or emotional relationship or is someone making you feel afraid or unsafe? 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 Male 09/01/2020 11:55 AM CDT Sexual Orientation Straight 09/01/2020 11 :55 AM CDT documented as of this encounter Plan of Treatment Not on file documented as of this encounter Visit Diagnoses Not on filedocumented in this encounter Care Teams Curator Of Education Relationship Specialty Start Date End Date Sadie Puri NP [address] [facility] [address] [place] [address] PCP - General Internal Medicine 11/30/24 Yamilka Matos MD [address] [address] Consulting Physician Nephrology 11/30/24 Gloria Canales NP [address] [place] [address] Nurse Practitioner Neurosurgery 11/30/24 Scarlet Cardenas MD [address] [place] [address] Consulting Physician Urology 11/30/24 documented as of this encounter
--- OUTSIDE RECORDS SUMMARY | 2024-12-03 09:33 | XMS_ITS | Encounter Summary ---
Author Organization [facility] Address [address] [place] [place] [address] Care Team Providers Care Dosier Operator Name Role Phone Kimberly Navarrete MD Primary Care Provider Encounter Details Date Type Department Care Team (Late st Contact Info) Description 08/23/2022 Telephone [facility] SCHEDULING [address] [place] [address] Yaw Wheeler MD Social History Tobacco Use Types Packs/Day Years Used Date Smoking Tobacco: Former Pipe Smokeless Tobacco: Never Comments:quit 1980 Alcohol Use Standard Drinks/Week Comments Yes 0 (1 standard drink = 0.6 oz pur e alcohol) RARELY Sex and Gender Information Value Date Recorded Sex Assigned at Male 03/04/2022 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 Answer Date of Assessment Author Yes 01/13/2019 11:50 AM Edwige Loya RN * Is person blind or have serious difficulty seeing? Answer Date of Assessment Author No 01/13/2019 11:50 AM Edwige Loya RN * Does person have serious difficulty walking/climbing stairs? Answer Date of Assessment Author No 01/13/2019 11:50 AM CDT Edwige Louise RN * Does person have difficulty dressing/bathing? Answer Date of Assessment Author No 01/13/2019 11:50 AM AGUSTÍNT Edwige Louise RN * Does person have difficulty doing errands alone? Answer Date of Assessment Author Yes 01/13/2019 11:50 AM Edwige Loya RN documented as of this encounter Mental Status * Does person have difficulty concentrating/remembering/making decisions? Answer Entry Date Author No 01/13/2019 11:50 AM AGUSTÍNT Edwige Louise RN documented in this encounter Miscellaneous Notes * Telephone Encounter - Sadi Franklin - 08/23/2022 8:40 AM CDT Pt was bumped from 09/03 [facility] visit. [facility] does not reschedule for this appt type. [...] documented as of this encounter Care Teams Dosier Operator Relationship Specialty Start Date End Date Kimberly Navarrete MD PCP - General 07/17/17 documented as of this encounter
--- OUTSIDE RECORDS SUMMARY | 2024-12-03 09:33 | XMS_ITS | Encounter Summary ---
Author Organization [facility] Address [address] [place] [address] Care Team Providers Care Medical Geneticist Name Role Phone Kimberly Navarrete MD Primary Care Provider Encounter Details Date Type Department Care Team (Late st Contact Info) Description 05/02/2019 Lab Requisition [facility] [address] [facility], [place] [phone] Chrissie Medina, [address] [facility] 3 [place] [address] Social History Tobacco Use Types Packs/Day Years Used Date Smoking Tobacco: Former Pipe Smokeless Tobacco: Never Comments:quit 1979 Alcohol Use Standard Drinks/Week Comments No 0 (1 standard drink = 0.6 oz pur e alcohol) Sex and Gender Information Value Date Recorded Sex Assigned at Male 03/04/2022 10:00 AM PACKER INSULATION Legal Sex Male 5:48 PM PACKER INSULATION Gender Identity Not on file Sexual Orientation Not on file documented as of this encounter Functional Status * Is person deaf or have serious hearing difficulty? Answer Date of Assessment Author Yes 01/13/2019 11:50 AM CDT Edwige Louise RN * Is person blind or have serious difficulty seeing? Answer Date of Assessment Author No 01/13/2019 11:50 AM Edwige Loya RN * Does person have serious difficulty walking/climbing stairs? Answer Date of Assessment Author No 01/13/2019 11:50 AM Edwige Loya RN * Does person have difficulty dressing/bathing? Answer Date of Assessment Author No 01/13/2019 11:50 AM Edwige Loya RN * Does person have difficulty doing errands alone? Answer Date of Assessment Author Yes 01/13/2019 11:50 AM Edwige Loya RN documented as of this encounter Mental Status * Does person have difficulty concentrating/remembering/making decisions? Answer Entry Date Author No 01/13/2019 11:50 AM Edwige Loya RN documented in this encounter Plan of Treatment Not on file documented as of this encounter Procedures Procedure Name Priority Date/Time Associated Diagnosis Comments DERMATOPATHOLOGY Routine 05/01/2019 12:0 0 AM PACKER INSULATION documented in this encounter Results * DERMATOPATHOLOGY (05/01/2019 12:00 AM PACKER INSULATION) Case Report Dermatopathology Report Case: [id number] Authorizing Provider: Chrissie Medina DO Collected: 05/01/2019 12:00 AM Ordering Location: [facility] Lab Received: 05/02/2019 01:28 PM Pathologist: Elgin Sam MD Specimen: Skin, right back 0 7:25 PM PACKER INSULATION DERMATOPATHOLOGY LABORATORY Final Diagnosis Specimen A. 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 0 7:25 PM PACKER INSULATION DERMATOPATHOLOGY LABORATORY Gross Description Specimen A: Received is one formalin filled container labeled with the patient's name and designated right back. The specimen consists of a shave measuring [id number]. Jar 0. 0 7:25 PM [facility] [[email or web address]] DERMATOPATHOLOGY LABORATORY Microscopic Description Specimen A. SKIN, [...] a perifollicular lymphohistiocytic infiltrate. 0 7:25 PM [facility] [[email or web address]] DERMATOPATHOLOGY LABORATORY Disclaimer An external and internal positive and negative controls are appropriate for the histochemical, immunohistochemical and immunofluorescence stain(s) in this case (if any), except where stated explicitly. The performance characteristics of the stain(s) cited in this report were developed and its performance characteristic determined by the Dermatopathology Laboratory at [facility], directed by Dr. Sherry Sam. These tests need not be, and therefore are not, approved by the [place] Food and Drug Administration. The tests are used for clinical purposes. Billing Codes Specimen Charges Stain Charges 13439 1 0 7:25 PM PACKER INSULATION DERMATOPATHOLOGY LABORATORY Embedded Images 0 7:25 PM [facility] [[email or web address]] DERMATOPATHOLOGY LABORATORY Pathology/Cytolog y TISSUE SPECIMEN FROM SKIN / Unknown 05/01/2019 05/02/2019 1:28 PM PACKER INSULATION us Chrissie Medina DO LAB - PATHOLOGY/CYTOLOGY ORDERABLES Final Result Performing Organization Address City/State/[facility] Co de Phone Number DERMATOPATHOLOGY LABORATORY [facility] - Department of Dermatology [address] [place] [address], 5th Floor Lab B [place], [place] [id number] [place] [address] documented in this encounter Visit Diagnoses Not on filedocumented in this encounter Additional Health Concerns Infection Onset Date Last Indicated Resolved Time COVID-19 Under Investigation 11/20/2023 11/20/2023 11/20/2023 10:51 PM CDT COVID-19 Confirmed 11/20/2023 11/20/2023 4:33 AM CDT documented as of this encounter Care Teams Medical Geneticist Relationship Specialty Start Date End Date Kimberly Navarrete MD PCP - General 07/17/17 documented as of this encounter
--- OUTSIDE RECORDS SUMMARY | 2024-12-03 09:33 | XMS_ITS ---
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
--- OUTSIDE RECORDS SUMMARY | 2024-12-03 09:34 | XMS_ITS | Encounter Summary ---
Author Organization [facility] Address [address] [place] [address] Phone Care Team Providers Care Director Payer Name Role Phone Kimberly Navarrete MD Primary Care Provider Rachele Daley OT Unavailable [phone] Ruthie Armas SURVEY INTERVIEWER Unavailable [phone] Ruthie Calderon FIRE ENGINE PUMP OPERATOR Primary Care Provider Liam FONTAINE MD, Robert Clayton Unavailable Sadie Puri FIRE ENGINE PUMP OPERATOR Primary Care Provider [phone] Yamilka Matos MD Unavailable Gloria Canales FIRE ENGINE PUMP OPERATOR Unavailable [phone] Scarlet Cardenas MD Unavailable [phone] Encounter Details Date Type Department Care [...] on file Legal Sex Male 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 Gender Identity Male 09/01/2020 11:55 AM CDT [...] documented as of this encounter Care Teams Director Payer Relationship Specialty Start Date End Date Kimberly Navarrete MD PCP - General Internal Medicine 10/26/18 02/23/21 Ruthie Calderon NP PCP - General Nurse Practitioner 02/24/21 06/07/24 Sadie Puri NP [address] [address] PCP - General Internal Medicine 11/30/24 Rachele Daley OT Occupational Therapist Occupational Therapy 05/19/20 1 05/15/20 Ruthie Armas, [place] Speech Language Pathologist Speech Therapy 05/29/20 02/12/21 Yaw Wheeler III, MD [address] [place] [address] Referring Physician Urology 02/17/22 11/29/24 Yamilka Matos MD [address] [address] Consulting Physician Nephrology 11/30/24 Gloria Canales NP [address] [place] [address] Nurse Practitioner Neurosurgery 11/30/24 Scarlet Cardenas MD [address] SURG [place] [address] Consulting Physician Urology 11/30/24 documented as of this encounter
--- OUTSIDE RECORDS SUMMARY | 2024-12-03 09:34 | XMS_ITS | Encounter Summary ---
Author Organization [facility] Address [address] [place] [address] Care Team Providers Care Vice President Of Nursing Name Role Phone Kimberly Navarrete MD Primary Care Provider Encounter Details Date Type Department Care Team (Late st Contact Info) Description 11/01/2018 Lab Requisition [facility] [address] [facility], [place] [address] Chrissie Medina, DO [address] [facility] 3 [place] [address] Social History Tobacco Use Types Packs/Day Years Used Date Smoking Tobacco: Former Pipe Smokeless Tobacco: Never Comments:quit 1979 Alcohol Use Standard Drinks/Week Comments No 0 (1 standard drink = 0.6 oz pur e alcohol) Sex and Gender Information Value Date Recorded Sex Assigned at Male 03/04/2022 10: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 Legal Sex Male 5:48 PM SUPERVISOR BACKFILLING Gender Identity Not on file Sexual Orientation Not on file documented as of this encounter Plan of Treatment Not on file documented as of this encounter Procedures Procedure Name Priority Date/Time Associated Diagnosis Comments DERMATOPATHOLOGY Routine 10/31/2018 12:0 0 AM CDT documented in this encounter Results * DERMATOPATHOLOGY (10/31/2018 12:00 AM CDT) Case Report Dermatopathology Report Case: [id number] Authorizing Provider: Chrissie Medina DO Collected: 10/31/2018 12:00 AM Pathologist: Elgin Sam MD Received: 11/01/2018 12:32 PM Specimen: Skin, left medial buttock 4:27 PM CDT DERMATOPATHOLOGY LABORATORY Final Diagnosis Specimen A. 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 Non-healing, pink scaly papule. 4:27 PM CDT DERMATOPATHOLOGY LABORATORY Gross Description Specimen A: Received is one formalin filled container labeled with the patient's name and designated left medial buttock. The specimen consists of a shave measuring [id number]. Jar 0. 4:27 PM CDT DERMATOPATHOLOGY LABORATORY [...] characteristic determined by the Dermatopathology Laboratory at [facility], directed by Dr. Sherry Sam. These tests need not be, and therefore are not, approved by the [place] Food and Drug Administration. The tests are used for clinical purposes. Billing Codes Specimen Charges Stain Charges 03265 1 4:27 PM CDT DERMATOPATHOLOGY LABORATORY Embedded Images 4:27 PM CDT DERMATOPATHOLOGY LABORATORY Pathology/Cytolog y TISSUE SPECIMEN FROM SKIN / Unknown 10/31/2018 11/01/2018 12:32 PM CDT us Chrissie Medina DO LAB - PATHOLOGY/CYTOLOGY ORDERABLES Final Result DERMATOPATHOLOGY LABORATORY [facility] - Department of Dermatology [address] [facility], 5th Floor Lab B [address] [phone] documented in this encounter Visit Diagnoses Not on filedocumented in this encounter Additional Health Concerns Infection Onset Date Last Indicated Resolved Time COVID-19 Under Investigation 11/20/2023 11/20/2023 11/20/2023 10:51 PM CDT COVID-19 Confirmed 11/20/2023 11/20/2023 4:33 AM CDT documented as of this encounter Care Teams Vice President Of Nursing Relationship Specialty Start Date End Date Kimberly Navarrete MD PCP - General 07/17/17 documented as of this encounter
--- OUTSIDE RECORDS SUMMARY | 2024-12-03 09:34 | XMS_ITS | Encounter Summary ---
Author Organization [facility] Address [address] [facility] [place] [address] Care Team Providers Care Sweater Designer Name Role Phone Kimberly Navarrete MD Primary Care Provider Encounter Details Date Type Department Care Team (Late st Contact Info) Description 10/10/2018 Lab Requisition [facility] [address] [facility], [place] [phone] Chrissie Medina, DO [address] [facility] 3 [place] [address] Social History Tobacco Use Types Packs/Day Years Used Date Smoking Tobacco: Former Pipe Smokeless Tobacco: Never Comments:quit 1979 Alcohol Use Standard Drinks/Week Comments No 0 (1 standard drink = 0.6 oz pur e alcohol) Sex and Gender Information Value Date Recorded Sex Assigned at Male 03/04/2022 10: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 Legal Sex Male 5:48 PM TITLE CLERK AUTOMOBILE Gender Identity Not on file Sexual Orientation Not on file documented as of this encounter Plan of Treatment Not on file documented as of this encounter Procedures Procedure Name Priority Date/Time Associated Diagnosis Comments DERMATOPATHOLOGY Routine 10/09/2018 12:0 0 AM CDT documented in this encounter Results * DERMATOPATHOLOGY (10/09/2018 12:00 AM CDT) Case Report Dermatopathology Report Case: [id number] Authorizing Provider: Chrissie Medina DO Collected: 10/09/2018 [...] TYPE (C44.219) 11:53 AM CDT DERMATOPATHOLOGY LABORATORY at 1153 CDT Clinical History A: Nevus R/O atypia. B: R/O BCC. 11:53 AM CDT DERMATOPATHOLOGY LABORATORY Gross Description Specimen A: Received is one formalin filled container labeled with the patient's name and designated right abdomen. The specimen consists of a shave measuring [id number]. Jar 0. Specimen B: Received is one formalin filled container labeled with the patient's name and designated left helix. The specimen consists of a shave measuring [id number]. Jar 0. 11:53 AM CDT DERMATOPATHOLOGY LABORATORY [...] characteristic determined by the Dermatopathology Laboratory at [facility], directed by Dr. Sherry Sam. These tests need not be, and therefore are not, approved by the [place] Food and Drug Administration. The tests are used for clinical purposes. Billing Codes Specimen Charges Stain Charges 50508 53135 1 1 9 11:53 AM CDT DERMATOPATHOLOGY LABORATORY Embedded Images 9 11:53 AM CDT DERMATOPATHOLOGY LABORATORY Pathology/Cytology TISSUE SPECIMEN FROM SKIN / Unknown 10/09/2018 10/10/2018 12:27 PM CDT Miscellaneous samples (specimen) TISSUE SPECIMEN FROM SKIN / Unknown 10/09/2018 10/10/2018 12:27 PM CDT Chrissie Medina DO LAB - PATHOLOGY/CYTOLOGY ORDERABLES Final Result Performing Organization Address City/State/[facility] Co de Phone Number DERMATOPATHOLOGY LABORATORY [facility] - Department of Dermatology [address] [place] [address] 5th Floor Lab B [address] [phone] documented in this encounter Visit Diagnoses Not on filedocumented in this encounter Additional Health Concerns Infection Onset Date Last Indicated Resolved Time COVID-19 Under Investigation 11/20/2023 11/20/2023 11/20/2023 10:51 PM CDT COVID-19 Confirmed 11/20/2023 11/20/2023 4:33 AM CDT documented as of this encounter Care Teams Sweater Designer Relationship Specialty Start Date End Date Kimberly Navarrete MD PCP - General 07/17/17 documented as of this encounter
--- OUTSIDE RECORDS SUMMARY | 2024-12-03 09:34 | XMS_ITS | Patient Health Record ---
Author Organization [facility] Address [address] [facility] [address] [place] [address] Care Team Providers Care Paving Machine Operator Name Role Phone Ro Velázquez Unavailable [phone] Allergies No Known Allergies Reason For Referral No Information Medications Medication SIG (Take, Route, Frequency, Duration) Notes Start Date End Date Status Lisinopril 30 MG 1 tablet Orally Once a day Active Lancets Active Pantoprazole Sodium 40 MG 1 tablet 1/2 t o 1 hour before morning meal Orally Once a day Active Multivitamin Active Divalproex Sodium 500 MG 1 tablet Orally Twice a day; Duration: 90 days Active QUEtiapine Fumarate 100 MG 1 tablet Orally Once a day; Duration: 90 days at bedtime Active Finasteride 5 MG 1 tablet Orally Once a day Active Colace 100 MG 1 capsule as needed Orally Once a day Active Tamsulosin HCl 0.4 MG 1 capsule Orally O nce a day Active QUEtiapine Fumarate 25 MG 1 tablet Oral Once a day; Duration: 90 days in the morning 03/21/2024 Active Clopidogrel Bisulfate 75 MG 1 tablet Ora lly Once a day Active Memantine HCl 5 MG 1 tablet Orally Once a day; Duration: 30 days PLEASE MAKE APT FOR CONTINUED REFILLS Active Social History Tobacco Use: Social History [...] Problem Status W/U Status Risk Notes Problem Bipolar 1 disorder (615450852) Bipolar 1 disorder (F31.9) Active confirmed Problem Severe dementia with mood disturbance, unspecified dementia type (F03.C3) Active confirmed Vital Signs Heart Rate 81 /min 03/21/2024 Blood pressure diastolic 92 mm Hg 03/21/2024 Weight-kg 78.93 kg 03/21/2024 Blood pressure systolic 159 mm Hg 03/21/2024 Weight 174 lbs 03/21/2024 Encounters Encounter Location Date Provider Diagnosis [facility] [employer] [address] [address] 03/21/2024 Ro Velázquez 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 Z79.899 ; Severe dementia with mood disturbance, unspecified dementia type F03.C3 and Bipolar 1 disorder F31.9 [facility] [employer] [address] [address] 03/22/2024 Ro Velázquez [facility] [employer] [place] [address] [address] [facility] [address] [address] 03/21/2024 Ro Velázquez Other detention (current) drug therapy Z79.899 [facility] [employer] [address] [address] 03/26/2024 Ro Velázquez Bipolar 1 disorder F31.9 Assessments Encounter Date Diagnosis (ICD Code) Assessment Notes Treatment Notes Treatment Clinical Notes Section Notes 03/21/2024 Other detention (current) drug therapy (ICD-10 - Z79.899) 1. [...] 33 09/2023 LABS ORDERED TODAY 03/21/2024 Other detention (current) drug therapy (ICD-10 - Z79.899) 03/26/2024 [...] there are no known problems associated with computer terminal operator use of valproate. It is a safe [...] [address] [place] [address] [id number] MOSHE HAQUE Self - patient is the insured [facility] [address] [place] [address] [id number] NERISYA ADAMEL Self - patient is the insured Medical [...]
--- OUTSIDE RECORDS SUMMARY | 2024-12-03 09:34 | XMS_ITS | Clinical Summary ---
Author Organization [facility] Address [address] [place] [address] Care Team Providers Care Electronic Specialist Name Role Phone Sadie Puri NP Primary Care Provider [phone] Yamilka Matos MD Unavailable [phone] Gloria Canales NP Unavailable [phone] Scarlet Cardenas MD Unavailable [phone] Allergies Active Allergy Reactions Criticality Noted Date Comments Nitrofurantoin Nausea And Vomiting Medium 02/13/2018 Sulfamethoxazole-Trimethoprim Nausea And Vomiting Medium 07/14/2017 Medications multivitamin-min erals-lutein tabletIndication s:Supplement Take 1 tablet by mouth daily after breakfast Active finasteride (PROSCAR) 5 mg tabletIndication s:benign prostatic hyperplasia with lower urinary tract sx Take 1 tablet (5 mg total) by mouth every morning 90 tablet 1 01/09/20 24 Active risperiDONE (RisperDAL) 0.5 mg tablet 05/10/19 25 Active sertraline (ZOLOFT) 50 mg tablet Take 1 tablet (50 mg total) by mouth daily 90 tablet 10/06/19 25 Active Additional Information Patient taking differently: 150 mgoral Daily, Reported on 11/30/2024 tamsulosin (FLOMAX) 0.4 mg extended release capsuleIndicatio ns:benign prostatic hyperplasia with lower urinary tract sx Take 1 capsule (0.4 mg total) by mouth every morning 30 capsule 10/10/19 25 Active sertraline (ZOLOFT) 100 mg tablet Take 1.5 tablets (150 mg total) by mouth daily Active atorvastatin (LIPITOR) 80 mg tabletIndication s:Hyperlipidemia associated with type 2 diabetes mellitus (HCC) Take 1 tablet (80 mg total) by mouth nightly 90 tablet 3 12/01/19 25 Active clopidogreL (PLAVIX) 75 mg tablet Take 1 tablet (75 mg total) by mouth daily 90 tablet 3 12/01/19 25 Active lisinopriL (PRINIVIL,ZESTRI L) 40 mg tablet Take 1 tablet (40 mg total) by mouth daily 90 tablet 3 12/01/[address] (PROTONIX) 40 mg EC tablet Take 1 tablet (40 mg total) by mouth daily 90 tablet 3 12/01/19 25 Active divalproex ER (DEPAKOTE ER) 500 mg 24 hr tablet Take 1 tablet (500 mg total) by mouth 2 (two) times a day 180 tablet 3 12/01/19 25 Active docusate sodium (COLACE) 100 mg capsuleIndicatio ns:constipation Take 1 capsule (100 mg total) by mouth 2 (two) times a day as needed for constipation 025 Discontin ued(Patie nt Reported) ketoconazole (NIZORAL) 2 % creamIndications :cutaneous candidiasis Apply 1 Application topically daily as needed for itching 11/01/19 20 025 Discontin ued(Patie nt Reported) hydrocortisone 2.5 % ointmentIndicati ons:Skin Inflammation Apply 1 Application topically 2 (two) times a day as needed for irritation 10/15/19 19 025 Discontin ued(Patie nt Reported) lancing device with lancets (Accu-Chek Multiclix Lancet) kitIndications:T ype 2 diabetes mellitus without complication, without long-term current use of insulin ([facility]) 1 Lancet daily 1 kit 1 06/03/19 025 Discontin ued(Patie nt Reported) blood-glucose meter (Accu-Chek Ching) miscIndications: Type 2 diabetes mellitus without complication, without long-term current use of insulin ([facility]) Use as directed to check blood glucose daily 1 each 1 06/03/19 24 025 Discontin ued(Patie nt Reported) lancets misc 100 each by other route daily 100 each 3 06/03/19 24 025 Discontin ued(Patie nt Reported) cholecalciferol (Vitamin D3) 2000 unit tabletIndication s:Osteoporosis,V itamin D Deficiency Take 1 tablet (2,000 Units total) by mouth every morning 025 Discontin ued(Patie nt Reported) triamcinolone (KENALOG) 0.1 % creamIndications :Rash and nonspecific skin eruption Apply to affected area twice daily to lower legs 80 g 1 07/14/19 24 025 Discontin ued(Patie nt Reported) acetaminophen (TYLENOL) 325 mg tablet Take 2 tablets (650 mg total) by mouth every 4 (four) hours as needed for pain 08/07/19 24 025 Discontin ued(Patie nt Reported) nystatin powder Apply topically 2 (two) times a day 12/20/19 24 025 Discontin ued(Patie nt Reported) divalproex ER (DEPAKOTE ER) 500 mg 24 hr tablet TAKE 1 TABLET TWICE A DAY 180 tablet 02/09/20 24 025 Discontin ued(Reord er) memantine (NAMENDA) 5 mg tablet 03/21/20 24 025 Discontin ued(Patie nt Reported) lisinopriL (PRINIVIL,ZESTRI L) 40 mg tablet Take 1 tablet (40 mg total) by mouth daily 90 tablet 1 04/05/20 24 025 Discontin ued(Reord er) atorvastatin (LIPITOR) 80 mg tabletIndication s:Mixed hyperlipidemia,H yperlipidemia LDL goal <70,Medication dose increased Take 1 tablet (80 mg total) by mouth nightly 90 tablet 3 05/15/19 25 025 Discontin ued(Reord er) pantoprazole DR (PROTONIX) 40 mg EC tablet TAKE 1 TABLET BY MOUTH EVERY DAY 90 tablet 1 07/13/19 25 025 Discontin ued(Reord er) clopidogreL (PLAVIX) 75 mg tablet Take 1 tablet (75 mg total) by mouth daily 90 tablet 08/18/19 25 025 Discontin ued(Reord er) blood glucose diagnostic (Accu-Chek Guide test strips) stripIndications :Type 2 diabetes mellitus without complication, without long-term current use of insulin (HCC) 100 each by other route as directed 100 strip 1 10/12/19 25 025 Discontin ued(Patie nt Reported) calcium carbonate/vitami n D3 (CALCIUM 500 + D ORAL) Take by mouth Discontin ued(Patie nt Reported) cholecalciferol 25 mcg (1,000 unit) tablet Take 1 tablet (1,000 Units total) by mouth daily 025 Discontin ued(Patie nt Reported) albuterol HFA (PROVENTIL HFA,VENTOLIN HFA,PROAIR HFA) 90 mcg/actuation inhaler Inhale 2 puffs every 6 (six) hours as needed for wheezing Discontin ued(Patie nt Reported) cetirizine (ZyrTEC) 10 mg tablet Take 1 tablet (10 mg total) by mouth daily Discontin ued(Patie nt Reported) ibuprofen 200 mg tab/cap Take 1 tablet/capsule (200 mg total) by mouth every 6 (six) hours as needed for pain Discontin ued(Patie nt Reported) Active Problems Problem Noted Date Diagnosed Date Moderate major depression 11/30/2024 Assessment & Plan (11/30/2024 5:56 PM CDT): Follow recommendations from geriatric Psychiatry. Currently on Zoloft 150 mg and risperidone 0.5 mg b.i.d. History of TIAs 11/30/2024 History of DVT (deep vein thrombosis) 11/30/2024 Assessment & Plan (11/30/2024 5:56 PM CDT): This was secondary to immobility after 1st stroke. Provoked. No longer on anticoagulation Urinary incontinence without sensory awareness 0 11/30/2024 Assessment & Plan (11/30/2024 5:56 PM CDT): BMI 25.0-25.9,adult 11/30/2024 Assessment & Plan (11/30/2024 5:56 PM CDT): Recommend following a heart healthy diet Vascular dementia with psychotic disturbance Assessment & Plan (11/30/2024 5:56 PM CDT): Assessment & Plan (01/05/2024 3:00 PM CDT): -current delusional thoughts of wanting repossession of his gun to go skeet shooting -no current SI or HI thoughts -establish with psychiatrist, referral given Anemia 09/30/2023 Assessment & Plan (11/30/2024 5:56 PM CDT): History of anemia. We will repeat labs. Orders: CBC with auto differential; Future Ferritin; Future Iron profile w/ IBC; Future Hyperlipidemia associated with type 2 diabetes m ellitus 09/30/2023 Assessment & Plan (11/30/2024 5:56 PM CDT): Orders: Lipid panel; Future CBC with auto differential; Future atorvastatin (LIPITOR) 80 mg tablet; Take 1 tablet (80 mg total) by mouth nightly Assessment & Plan (11/30/2024 5:56 PM CDT): Hypertension associated with diabetes 09/22/2023 Assessment & Plan (11/30/2024 5:56 PM CDT): Orders: Comprehensive metabolic panel; Future Hemoglobin A1c; Future CBC with auto differential; Future Seizure disorder 09/22/2023 Assessment & Plan (11/30/2024 5:56 PM CDT): Expressive aphasia 08/31/2023 Arachnoid cyst 08/05/2023 Gait disturbance 06/02/2023 Assessment & Plan (11/30/2024 5:56 PM CDT): Difficulty walking. Physical therapy ordered. Left spastic hemiparesis 06/04/2022 Elevated alkaline phosphatase level 02/04/2022 Vitamin D deficiency, unspecified 02/04/2022 Assessment & Plan (11/30/2024 5:56 PM CDT): Repeat vitamin-D level pending. 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 Does not have any hearing aids. Able to hear if speaks loudly. BPH (benign prostatic hyperplasia) 08/09/2017 Assessment & Plan (11/30/2024 5:56 PM CDT): Gastroesophageal reflux disease without esophagi tis 04/24/2017 Assessment & Plan (11/30/2024 5:56 PM CDT): Continue current use of pantoprazole 40 mg daily. Orders: CBC with auto differential; Future Hemiplegia and hemiparesis f ollowing unspecified cerebrovascular disease affecting left dominant side 04/24/2017 Assessment & Plan (11/30/2024 5:56 PM CDT): Orders: Ambulatory referral order to Physical Therapy -; Future Assessment & Plan (12/21/2019 3:15 PM CDT): -discussed restarting PT / OT to help rebuild strength, he is not interested at this time Presence of other vascular implants and grafts 0 04/24/2017 Type 2 diabetes mellitus wit h stage 2 chronic kidney disease, without long-term current use of insulin 04/24/2017 Assessment & Plan (11/30/2024 5:56 PM CDT): Orders: Comprehensive metabolic panel; Future Assessment & Plan (04/05/2024 2:56 PM EMERGENCY ROOM CLERK): -check A1c -has previously had poor tolerance [...] sugar Assessment & Plan (06/02/2023 7:13 PM EMERGENCY ROOM CLERK): -check A1c, last with fair control at 7.6% -adherent with jardiance 25mg daily -has recently restarted Metformin, tolerating well - continue -previously took rybelsus summer 2022, stopped after three days due to vomiting ; also previous intolerance to Trulicity -continue ACEI and statin -up to date with eye doctor and divorce mediator Assessment & Plan (09/30/2022 1:54 PM CDT): [...] surgery in November -up to date with divorce mediator - still awaiting diabetic shoes Assessment & Plan (06/03/2022 1:23 PM EMERGENCY ROOM CLERK): -check A1C, near goal in Fall 2021 -continue statin, off ACEI d/t low BP last fall -needs to see eye doctor in near future -follows with podiatry every 3 months, having diabetic shoe paperwork sent to our office for completion -needs shingrix, other vaccines up to date Assessment & Plan (03/04/2022 2:34 PM EMERGENCY ROOM CLERK): -check A1C -currently taking Jardiance 25 mg [...] prevnar-13 Assessment & Plan (04/02/2021 2:36 PM EMERGENCY ROOM CLERK): -A1C at goal 7% in clinic today [...] on ACEI / ARB for unclear reasons History of right MCA stroke 03/24/2017 Overview (12/21/2019): -March 2017 Assessment & Plan (11/30/2024 5:56 PM CDT): Continue Plavix and aspirin. Has significant left-sided hemiplegia. Mild expressive aphasia. Assessment & Plan (04/29/2020 1:30 PM EMERGENCY ROOM CLERK): - Will send Referral to clinic for botox injections. Patient has spastic left arm. MAS 3 - WIll discuss the addition of patient to next iteration of IpsiHand trial with Dr. Bashir] - [facility]/SCIENT[facility] to optimize patient for possible IpsiHand trial and continue to work on hemineglect, spasticity and speech. - Suggested multiple books to and patient to better understand deficits of R MCA stroke. Resolved Problems Problem Noted Date Diagnosed Date Resolved Date Bipolar 1 disorder 11/30/2024 Severe dementia with mood disturbance 11/30/2024 11/30/2024 Bilateral lower extremity edema 12/12/2023 11/30/2024 Dementia with behavioral disturbance 11/10/2023 11/30/2024 Electrocution 11/10/2023 11/30/2024 Hypokalemia 11/10/2023 11/30/2024 Muscle weakness (generalized) 10/07/2023 11/30/2024 Hypertensive chronic kidney disease with stage 1 through stage 4 chronic kidney disease, or unspecified chronic kidney disease 09/30/2023 11/30/2024 Type 2 diabetes mellitus wit h diabetic chronic kidney disease 09/30/2023 11/30/2024 Secondary hyperparathyroidism of renal origin 09/30/19 24 11/30/2024 Overactive bladder 09/26/2023 Hydrocephalus 09/22/2023 11/30/2024 Headache 09/03/2023 11/30/2024 Bipolar and related disorder due to another medical condition, with manic features 08/19/2023 0 11/30/2024 Assessment & Plan (01/05/2024 3:01 PM CDT): -establish with psych Normal pressure hydrocephalus 08/19/2023 11/30/2024 AMS (altered mental status) 08/18/2023 11/30/2024 Altered mental status, unspe cified altered mental status type 08/16/2023 11/30/2024 Personality change 06/02/2023 Assessment & Plan (06/02/2023 7:17 PM EMERGENCY ROOM CLERK): -due to recent changes including personality change, increased emotional lability and gait disturbance check brain MRI -follow up with neurologist as scheduled, sooner as appropriate based on MRI findings -check vitamin b 12 -recent urine studies without UTI -follow with psych as scheduled, continue current medications -resume OT, ordered Emotional lability 06/02/2023 Left leg swelling 06/02/2023 11/30/2024 Assessment & Plan (07/14/2023 12:33 PM CDT): [...] weeks Assessment & Plan (06/02/2023 7:15 PM EMERGENCY ROOM CLERK): -sudden onset -4 cm discrepancy between calves -negative Pennie's sign -redness, warmth and diffuse swelling of LLE -check stat VUS to r/o acute DVT Paul-inattention 06/04/2022 11/30/2024 Impaired functional mobility , balance, gait, and endurance 06/04/2022 11/30/2024 Assessment & Plan (06/02/2023 7:17 PM EMERGENCY ROOM CLERK): -resume PT, ordered Neuromuscular dysfunction of bladder, unspecified 02/09/2022 11/30/2024 Screening for colorectal cancer 02/04/2022 11/30/2024 Assessment & Plan (02/04/2022 4:14 PM CDT): -previous colonoscopy was before stroke in 2017, no polyps at that time -declines repeating colonoscopy at this time, cologuard is reasonable - ordered Constipation 02/04/2022 11/30/2024 Assessment & Plan (02/04/2022 4:32 PM CDT): -noted over recent weeks, etiology likely multi-factoral -improving with prn use of MOM, recommend using every other day -no abdominal pain or blood in stool -some mild nausea, ok with zofran prn for now -check TSH, recheck hepatic function -CT abdomen pelvis reasonable, ordered -increase fiber in diet, ensured adequate hydration Stage 3a chronic kidney disease 01/07/2022 11/30/2024 Nausea and vomiting 01/07/2022 10/01/19 Assessment & Plan (01/07/2022 3:03 PM CDT): -has lost 19 lb in past 6 weeks -very poor appetite -recent n/v, likely r/t GLP1 and possibly viral process as well -hold GLP1, monitor glucose closely -start low sugar Boost or Ensure daily -check labs -follow up in one month to ensure weight stable Frequent falls 11/26/2021 11/30/2024 Assessment & Plan (11/26/2021 3:10 PM CDT): [...] assistance -recommend home PT and in home nanny to assist with ADLs, referral for [facility] / home health placed Weakness 11/26/2021 11/30/2024 Assessment & Plan (02/04/2022 4:27 PM CDT): [...] CT abdomen and pelvis Recurrent UTI 11/26/2021 11/30/2024 Assessment & Plan (11/30/2024 5:56 PM CDT): Recurrent UTIs have resolved. This was thought to be secondary to Jardiance. Assessment & Plan (01/07/2022 3:01 PM CDT): -recently completed cipro, following with [facility] -check UA Assessment & Plan (11/26/2021 3:13 PM CDT): -will complete Keflex tomorrow -recheck UA next week -follow with urology as scheduled Bilateral impacted cerumen 07/01/2021 0 11/30/2024 Assessment & Plan (07/01/2021 4:49 PM CDT): -bilateral ear lavage performed today, tolerated well -consider use of debrox drops at home Spasticity as late effect of cerebrovascular accident (CVA) 08/01/2020 11/30/2024 TIA (transient ischemic attack) 12/21/2019 11/30/2024 Assessment & Plan (07/01/2021 4:52 PM CDT): [...] or two with his neurology group at [facility] -continue Plavix 75 mg daily, atorvastatin 40 mg nightly and amlodipine 5 mg daily -ER precautions discussed if any acute symptoms recur Dysphagia 09/17/2019 11/30/2024 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 05/24/2017 08/01/2020 Hypertensive disorder 04/24/20172024 Assessment & Plan (04/05/2024 2:56 PM EMERGENCY ROOM CLERK): -BP here today and at home running above goal -increase lisinopril to 40 mg daily -check BMP in 2 weeks Assessment & Plan (01/05/2024 2:56 PM CDT): -BP above goal -lisinopril was stopped while in hospital -restart lisinopril at 20 mg daily -stop amlodipine 2.5 mg daily -check BMP in 2-4 weeks -keep upcoming appointment with nephrology Assessment & Plan (06/02/2023 7:09 PM EMERGENCY ROOM CLERK): -BP above goal today -increase lisinopril to 10 mg daily -check renal function and lytes Assessment & Plan (09/30/2022 1:50 PM CDT): -BP at goal -continue amlodipine 5 mg daily -check renal function Assessment & Plan (06/03/2022 1:21 PM EMERGENCY ROOM CLERK): -blood pressure at goal on second reading -continue amlodipine 5 mg daily -check BMP Assessment & Plan (03/04/2022 2:32 PM EMERGENCY ROOM CLERK): -BP at goal, continue amlodipine 5 mg [...] weeks Assessment & Plan (04/02/2021 2:35 PM EMERGENCY ROOM CLERK): -borderline control, continue amlodipine 5 mg daily -encouraged to monitor blood pressure at home a few times monthly and bring readings to next visit Assessment & Plan (12/21/2019 3:06 PM CDT): -blood pressure is well controlled, continue amlodipine 5 mg daily Hyperlipidemia 04/24/2017 11/30/2024 Overview (01/31/2023): -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mg Assessment & Plan (12/21/2019 3:16 PM CDT): -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 mg group home (current) use of antithrombotics/antiplatelets 04/24/2017 11/30/2024 group home (current) use of aspirin 04/24/2017 11/30/2024 Acute embolism and thrombosi s of right femoral vein 04/24/2017 11/30/2024 Nontraumatic intracerebral hemorrhage 03/26/2017 11/30/2024 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 11/30/2024 Encounters Date Type Department Care Team Description 12/03/2024 Telephone [facility] Primary Care at [address] [id number] Sadie Puri NP Medical Question/Miscellaneous 11/30/2024 12:35 PM CDT Lab [address] [address] Hypertension associated with diabetes (HCC); Type 2 diabetes mellitus with stage 2 chronic kidney disease, without long-term current use of insulin (HCC); Hyperlipidemia associated with type 2 diabetes mellitus (HCC); Gastroesophageal reflux disease without esophagitis; Anemia, unspecified type; Prostate cancer screening; Vitamin D deficiency, unspecified 11/30/2024 11:30 AM CDT Office Visit [facility] Primary Care at [address] [phone] Sadie Puri NP Gastroesophageal reflux disease without esophagitis (Primary Dx); Vitamin D deficiency, unspecified ; Hyperlipidemia associated with type 2 diabetes mellitus (HCC); Hypertension associated with diabetes (HCC); Anemia, unspecified type; Prostate cancer screening; Recurrent UTI; Type 2 diabetes mellitus with stage 2 chronic kidney disease, without long-term current use of insulin (HCC); BMI 25.0-25.9,adult; Moderate major depression (HCC); Sensorineural hearing loss (SNHL) of both ears; Moderate vascular dementia with psychotic disturbance (HCC); Hemiplegia and hemiparesis following unspecified cerebrovascular disease affecting left dominant side (HCC); Gait disturbance; Benign prostatic hyperplasia without lower urinary tract symptoms; Urinary incontinence without sensory awareness; Mixed hyperlipidemia; Seizure disorder (HCC); History of right MCA stroke; History of DVT (deep vein thrombosis) 11/30/2024 Results Follow-Up [facility] Primary Care at [address] [phone] Sadie Puri NP Comprehensive metabolic panel, Lipid panel, Hemoglobin A1c, Additional followed-up results: 7 10/23/2024 Telephone [facility] [address] [place] [address] Medical Office Building [address], [address] [place] [address] Krysta Guzman MD rx needs directions 09/27/2024 Orders Only [facility] Floor 1, [address] [place] [address] Gloria Canales NP Bipolar and related disorder due to another medical condition, with manic features (Primary Dx); Cerebral cyst; Behavioral change 09/27/2024 Orders Only [facility] Floor 1, [address] [place] [address] Gloria Canales NP Cerebral cyst (Primary Dx) 09/21/2024 Telephone [facility] [address], [address] [place] [address] Gloria Canales NP 09/20/2024 3:00 PM CDT Office Visit [facility] [address], [address] [place] [address] Gloria Canales NP Cerebral cyst (Primary Dx); S/P RESISTANCE MACHINE WELDER SETTER shunt 09/20/2024 1:21 PM CDT - 09/20/2024 11:59 PM CDT Hospital Encounter [facility] - [place] [address] [place] [address] S/P RESISTANCE MACHINE WELDER SETTER shunt Discharge Disposition: Discharge to home or self care from Last 3 Months Immunizations Immunization Administration [...] Date Site/Laterality Comments BRAIN SURGERY after stroke APPENDECTOMY IR G TUBE PLACEMENT PERCUTANEOUS 03/29/2017 N/A CAROTID STENT 03/18/2017 - 04/17/2017 Right s/p mechanical thrombectomy and R ICA stent placement G TUBE PLACEMENT 2017 after stroke until May 2017. SHUNT EXTERNALIZATION August 06, 2023 2 shunts placed in brain CATARACT EXTRACTION Both eyes December 2022 Medical History Medical History Date Comments Male erectile dysfunction Erecti le dysfunction - (Added by TW Conv) Enlarged prostate without lo wer urinary tract symptoms (luts) Benign prostatic hyperpl mike - (Added by TW Conv) Personal history of other endocrine, nutritional and metabolic disease History of hyperlipidemia - (Added by TW Conv) Personal history of other di seases of the nervous system and sense organs History of tinnitus - (Added by TW Conv) Personal history of other endocrine, nutritional and metabolic disease History of type 2 diabetes mellitus - Diet controlled (Added by TW Conv) Cancer (HCC) Diabetes mellitus (HCC) Dysphagia Neuromuscular disease or syn drome (HCC) Hypertension Incontinence Joint pain Seizures (HCC) Hydrocephalus 09/22/2023 Hypokalemia 11/10/2023 Bilateral lower extremity edema 12/12/2023 Dementia with behavioral disturbance (HCC) 11/10/2023 Severe dementia with mood disturbance (HCC) 11/30/2024 Bipolar 1 disorder (HCC) 11/30/2024 Anemia in chronic kidney disease 09/30/2023 Secondary hyperparathyroidis m of renal origin 09/30/2023 Hypertensive chronic kidney disease with stage 1 through stage 4 chronic kidney disease, or unspecified chronic kidney disease 09/30/2023 Muscle weakness (generalized) 10/07/2023 Cataract removed from both ey es November 2022 Depression Since stroke in March 2017 Stroke (HCC) March 24, 2017 Benign prostatic hyperplasia 2018 Anxiety 2018 Arthritis 2018 Brain concussion Baseball accident in Family History Medical History Relation Name Comments Allergy (severe) Brother Umesh Epilepsy Brother Umesh Family history of epilepsy - Post-traumatic (Added by TW Conv) Heart disease Father [place] Hypertension Father [place] Arthritis Mother Rukhsana Diabetes Mother Rukhsana Miscarriages / Stillbirths Mother Rukhsana Transient ischemic attack Mother Rukhsana Fa paulino history of transient ischemic attacks - (Added by TW Conv) Diabetes Mother's Sister Joanne Reynolds [place] Obesity Mother's Sister Joanne Reynolds [place] Alcohol abuse Paternal Grandfather Ulises Stroke Paternal Grandfather Ulises Stroke Paternal Grandmother Rola Vision loss Paternal Grandmother Rola Anesthesia problems Neg Hx Relation Name Status Comments Brother Umesh Father [place] Mother Rukhsana Mother's Sister Joanne Reynolds [place] Alive Paternal Grandfather Ulises Alive Paternal Grandmother Rola Alive Social History Tobacco Use Types Packs/Day Years Used Date Smoking Tobacco: Former Pipe 1 [phone] - 1979 Passive Smoke Exposure: Past Smokeless Tobacco: Never Alcohol Use Standard Drinks/Week Comments Yes 0 (1 standard drink = 0.6 oz pur e alcohol) Occasionally [facility] Utilities Answer Date Recorded In the [...] week 09/04/2023 How often do you attend [facility] or denominational services? 1 to 4 times per year 09/04/2023 Do you belong to any clubs o r organizations such as mormon groups, unions, fraternal or athletic groups, or [...] place to sleep or slept in a longterm (including now)? Patient unable to answer 09/01/2023 [...] any time in the past 12 m [facility], were you homeless or living in a longterm (including now)? Patient unable to answer 09/05/2023 Personal Safety Answer Date Recorded Have you ever been in or are you currently in a harmful physical or emotional relationship or is someone making you feel afraid or unsafe? Denies 09/03/2023 Sex and Gender Information Value Date Recorded Sex Assigned at Not on file Legal Sex Male 7:29 AM EMERGENCY ROOM CLERK Gender Identity Male 09/01/2020 11:55 AM CDT Sexual Orientation Straight 09/01/2020 11 :55 AM CDT Obstetrics History Last Filed Vital Signs Vital Sign Reading Time Taken Comments Blood Pressure 140/70 11/30/2024 11:30 AM CDT Pulse 70 11/30/2024 11:30 AM CDT Temperature 36.3 C (97.3 F) 11/30/2024 11:30 AM CDT Respiratory Rate 16 11/30/2024 11:3 0 AM CDT Oxygen Saturation 98% 11/30/2024 11: 30 AM CDT Inhaled Oxygen Concentration - - Weight 79.4 kg (175 lb) 11/30/2024 11:3 0 AM CDT per in wheelchair Height 177.8 cm (5' 10) 11/30/2024 11: 30 AM CDT Body Mass Index 25.11 11/30/2024 11:30 AM CDT Plan of Treatment Health Maintenance Due Date Last Done Comments Dilated Eye Exam 1945 Zoster Vaccine (1 of 2) 1996 Well Visit 65+ 01/28/2024 01/27/2023, 12/12/2020 Influenza Vaccine (#1) 2024 , 01/27/2023, 02/04/2022, Additional history exists Hemoglobin A1C 06/02/2025 11/30/2024, 04/19, 11/11/2023, Additional history exists Covid-19 Vaccine ( season) 2025 02/05/2022, 02/05/2022, 02/19/2021, Additional history exists Postponed from 12/18/2023 (Patient declined, but will receive in the future) Depression Screening 11/30/2025 11/30/2024, 08/16/2023, 01/27/2023, Additional history exists Fall Risk Assessment 11/30/2025 11/30/2024, 09/06/2023, 01/27/2023 Foot Exam 11/30/2025 11/30/2024 Lipid Panel 11/30/2025 11/30/2024, 04/19, 11/11/2023, Additional history exists eGFR 11/30/2025 11/30/2024, 04/19, 01/31/2024, Additional history exists DTaP/Tdap/Td Vaccine (4 - Td or Tdap) 05/05/2033 05/05/2023, 05/05/2023, 08/04/2020 Abdominal Aortic Aneurysm (AAA) Screen Completed 02/16/2022 Pneumococcal vaccine 65+ Completed 03/04/2022, 03/18 Albumin Creatinine Ratio, Urine Discontinued 01/26/2023, 02/23/2021 Hepatitis B Screening Discontinued Hepatitis C Screening Discontinued Medical Devices Implanted Type Area Core Oven Tender Device Identifier Shelf Expiration Date Model / Serial / Lot [employer] Cecilio Antibiotic Kit Catheter Sterile Latex Free [id number] - [id number] Implanted:Qty: 1 on 08/06/2023 by Luis Carlos Mcgill MD at [facility] Left: Brain [employer] [id number] 11/28/2024 [id number] / / [id number] [employer] Certas Inline Siphonguard Valve Shunt [id number] - [id number] Implanted:Qty: 1 on 08/06/2023 by Luis Carlos Mcgill MD at [facility] Left: Brain [employer] [id number] / / Procedures Procedure Name Priority Date/Time Associated Diagnosis Comments EGFR Routine 11/30/2024 12:45 PM CDT Hypertension associated with diabetes (HCC) Type 2 diabetes mellitus with stage 2 chronic kidney disease, without long-term current use of insulin (HCC) DIFFERENTIAL AUTO Routine 11/30/2024 12: 45 PM CDT Gastroesophageal reflux disease without esophagitis Hyperlipidemia associated with type 2 diabetes mellitus (HCC) Hypertension associated with diabetes (HCC) Anemia, unspecified type VITAMIN D 25 HYDROXY Routine 11/30/2024 12:45 PM CDT Vitamin D deficiency, unspecified PSA SCREEN Routine 11/30/2024 12:45 PM CDT Prostate cancer screening IRON PROFILE W/ IBC Routine 11/30/2024 1 2:45 PM CDT Anemia, unspecified type FERRITIN Routine 11/30/2024 12:45 PM CDT Anemia, unspecified type CBC WITH AUTO DIFFERENTIAL Routine 11/30/2024 12:45 PM CDT Gastroesophageal reflux disease without esophagitis Hyperlipidemia associated with type 2 diabetes mellitus (HCC) Hypertension associated with diabetes (HCC) Anemia, unspecified type HEMOGLOBIN A1C Routine 11/30/2024 12:45 PM CDT Hypertension associated with diabetes (HCC) LIPID PANEL Routine 11/30/2024 12:45 PM CDT Hyperlipidemia associated with type 2 diabetes mellitus (HCC) COMPREHENSIVE METABOLIC PANEL Routine 11/30/2024 12:45 PM CDT Hypertension associated with diabetes (HCC) Type 2 diabetes mellitus with stage 2 chronic kidney disease, without long-term current use of insulin (HCC) CT HEAD WO CONTRAST Schedule Routine, Read Routine (OP Routine) 09/20/2024 1:33 PM CDT 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 73 m2 Comment: Interpretive Data [...] interpretive data was last reviewed 2021. Blood 11/30/2024 12:4 5 PM CDT 11/30/2024 2:23 PM CDT us Sadie Puri NP LAB BLOOD ORDERABLES Final Re sult [facility] [address] [facility] Department [place] [address] * Differential, auto (11/30/2024 12:45 PM CDT) Neutrophil abs 4.56 1.50 - 6.50 K/cumm Imm gran abs 0.03 0.00 - 0.10 K/cumm [facility] Lymphocyte abs 2.00 0.80 - 3.30 K/cumm [facility] Monocyte abs 0.66 0.20 - 0.80 K/cumm [facility] Eosinophil abs 0.31 0.00 - 0.50 K/cumm [facility] Basophil abs 0.05 0.00 - 0.10 K/cumm [facility] Neutrophil pct 59.8 % [facility] Comment: Interpretive Data Percent cell count reference ranges are not reported, since discordance with absolute values may lead to misinterpretation of CBC data. Current Interpretive Data was last revised on 2017. Imm gran pct 0.4 % [facility] Comment: Interpretive Data Percent cell count reference ranges are not reported, since discordance with absolute values may lead to misinterpretation of CBC data. Current Interpretive Data was last revised on 2017. Lymphocyte pct 26.3 % [facility] Comment: Interpretive Data Percent cell count reference ranges are not reported, since discordance with absolute values may lead to misinterpretation of CBC data. Current Interpretive Data was last revised on 2017. Monocyte pct 8.7 % [facility] Comment: Interpretive Data Percent cell count reference ranges are not reported, since discordance with absolute values may lead to misinterpretation of CBC data. Current Interpretive Data was last revised on 2017. Eosinophil pct 4.1 % [facility] Comment: Interpretive Data Percent cell count reference ranges are not reported, since discordance with absolute values may lead to misinterpretation of CBC data. Current Interpretive Data was last revised on 2017. Basophil pct 0.7 % [facility] Comment: Interpretive Data Percent cell count reference ranges are not reported, since discordance with absolute values may lead to misinterpretation of CBC data. Current Interpretive Data was last revised on 2017. Blood 11/30/2024 12:4 5 PM CDT 11/30/2024 2:23 PM CDT Sadie [facility] LAB BLOOD ORDERABLES Final Re sult Performing Organization Address [facility] Co de Phone Number ZOIESHANIA [address] [place] [employer] [address] * PSA screen (11/30/2024 12:45 PM CDT) PSA-Total 0.57 <=6.20 ng/mL Comment: Interpretive Data AGE SEX REFERENCE INTERVAL 0 minutes-150 years Female None 0 minutes-49 years Male None 50-59 years Male 0-3.90 60-69 years Male 0-5.40 70-79 years Male 0-6.20 80-150 years Male 0-6.20 The Mikaela PSA Total assay procedure was used. Results from different manufacturers or methods may not be comparable. Serial testing should be performed using the same method. Current interpretive data last revised 21. Blood 11/30/2024 12:4 5 PM CDT 11/30/2024 2:23 PM CDT Sadie [facility] LAB BLOOD ORDERABLES Final Re sult Performing Organization Address City/[facility] Co de Phone Number ZOIEFORMERLY NAMED [facility] [address] [place] [address] [place] [address] * Iron profile w/ IBC (11/30/2024 12:45 PM CDT) Iron 83 50 - 150 mcg/dL TIBC 365 250 - 400 mcg/dL [facility] Transferrin saturation 23 20 - 50 % [facility] Blood 11/30/2024 12:4 5 PM CDT 11/30/2024 2:23 PM CDT Sadie Puri PROFESSIONAL ENGINEER LAB BLOOD ORDERABLES Final Re sult Performing Organization Address [facility]/ZIP Co de Phone Number [facility] [address] [address] * (ABNORMAL) CBC with auto differential (11/30/2024 12:45 PM CDT) [facility] WBC 7.61 3.80 - 9.90 K/cumm Hgb 14.5 13.0 - 17.5 g/dL [facility] Hct 44.9 38.9 - 50.3 % [facility] Plt 218 150 - 400 K/cumm [facility] MPV 9.1 9.1 - 12.3 fL [facility] RBC 4.91 4.30 - 5.80 M/cumm [facility] MCV 91.4 81.3 - 96.4 fL [facility] MCH 29.5 27.1 - 33.3 pg [facility] MCHC 32.3 32.3 - 35.7 g/dL [facility] RDW CV 14.5 11.1 - 14.9 % [facility] RDW SD 48.9(H) 35.7 - 48.1 fL [facility] NRBC abs 0.00 0.00 - 0.01 K/cumm [facility] Blood 11/30/2024 12:4 5 PM CDT 11/30/2024 2:23 PM CDT Sadie Puri PROFESSIONAL ENGINEER LAB BLOOD ORDERABLES Final Re sult Performing Organization Address City/[facility]/ZIP Co de Phone Number [facility] [address] [place] [address] * Vitamin D 25 hydroxy (11/30/2024 12:45 PM CDT) [facility] Vitamin D 25-OH 49.0 30.0 - 80.0 ng/mL Blood 11/30/2024 12:4 5 PM CDT 11/30/2024 2:23 PM CDT Sadie Puri PROFESSIONAL ENGINEER LAB BLOOD ORDERABLES Final Re sult Performing Organization Address [facility] Co de Phone Number [facility] [address] [place] [address] * (ABNORMAL) Hemoglobin A1c (11/30/2024 12:45 PM CDT) Hgb A1C 8.4(H) 4.0 - 5.6 % Estimated Average Glucose 194 mg/dL [facility] Comment: The ADA recommends reporting an estimated Average Glucose (eAG) with all Hemoglobin A1c results using the equation derived from a study of 507 normal and diabetic adults. Minority populations were underrepresented and children were not included. (Diabetes Care 31:0555-2221, 2008). The eAG is not equivalent to a fasting glucose. Blood 11/30/2024 12:4 5 PM CDT 11/30/2024 2:23 PM CDT Sadie Theraurora PROFESSIONAL ENGINEER LAB BLOOD ORDERABLES Final Re sult Performing Organization Address [facility] Co de Phone Number ZOIE[address] [place] [address] * Ferritin (11/30/2024 12:45 PM CDT) Ferritin 233 30 - 400 ng/mL Blood 11/30/2024 12:4 5 PM CDT 11/30/2024 2:23 PM CDT Sadie Haasaurora PROFESSIONAL ENGINEER LAB BLOOD ORDERABLES Final Re sult Performing Organization Address [facility] Co de Phone Number ZOIE[address] [place] [address] * (ABNORMAL) Lipid panel (11/30/2024 12:45 PM CDT) Cholesterol 222(H) 30 - 199 mg/dL Comment: Interpretive Data [...] Data was last revised on 2017. Triglycerides 294(H) <=149 mg/dL [facility] Comment: Interpretive Data Ages < or = [...] Data was last revised on 2017. HDL 38(L) >=40 mg/dL [facility] Comment: Interpretive Data Ages < or = [...] was last revised on 2017. LDL, calculated 131(H) <=129 mg/dL [facility] GÓMEZ Comment: Interpretive Data Ages < or = 19 years Acceptable: <110 mg/dL Borderline high: 110-129 mg/dL High: >or= 130 mg/dL Ages > or = 20 years Optimal: <100 mg/dL Near optimal: 100-129 mg/dL Borderline high: 130-159 mg/dL High: >160 mg/dL Calculated using the Torres LDL-C estimating equation. This equation was implemented on 2023. Prior to this date LDL-C was estimated using the Friedewald equation. Literature References: 1. Expert Panel on Integrated Guidelines for Cardiovascular Health and Risk Reduction in Children and Adolescents. Pediatrics 2011;128:S213 2. NCEP Expert Panel. Circulation 2004;110:227 3. Brian Eisenberg et al. AMINA Cardiol. 2019August 16;5(5):540-548. doi: 10.1001/jamacardio.2020.0013 Current Interpretive Data was last revised on 2023. Non-HDL Cholesterol 184 mg/dL [facility] Comment: Interpretive Data Ages < or = [...] was last revised on 2017. Chol/HDL ratio 6 [facility] Blood 11/30/2024 12:4 5 PM CDT 11/30/2024 2:23 PM CDT Narrative [facility] - 11/30/2024 3:08 PM CDT Has the patient been fasting for 8 hours or more?->Yes Sadie Puri NP LAB BLOOD ORDERABLES Final Re sult [facility] [address] [facility] Department [place] [address] * Comprehensive metabolic panel (11/30/2024 12:45 PM CDT) Sodium 139 135 - 145 mmol/L Potassium, pl 4.5 3.3 - 4.9 mmol/L [facility] Chloride 101 97 - 110 mmol/L [facility] CO2 27 22 - 32 mmol/L [facility] Anion gap 11 2 - 15 mmol/L [facility] BUN 20 6 - 25 mg/dL [facility] Creatinine 1.01 0.80 - 1.30 mg/dL [facility] Glucose 141 70 - 199 mg/dL [facility] Comment: Interpretive Data Fasting glucose >/= [...] interpretive data was last revised 2022. Calcium 9.8 8.5 - 10.3 mg/dL [facility] Bilirubin, total 0.7 0.1 - 1.2 mg/dL [facility] Protein, pl 7.3 6.5 - 8.5 g/dL [facility] Albumin 4.3 3.5 - 5.0 g/dL [facility] Alk phos 111 40 - 130 Units/L [facility] ALT 17 7 - 55 Units/L [facility] AST 22 10 - 50 Units/L [facility] Blood 11/30/2024 12:4 5 PM CDT 11/30/2024 2:23 PM CDT us Sadie Puri PROFESSIONAL ENGINEER LAB BLOOD ORDERABLES Final Re sult [facility] [address] [facility] [place] [address] * CT Head WO Contrast (09/20/2024 1:33 PM CDT) Anatomical Region Laterality Modality Head and Neck N/A Computed Tomogra phy 09/20/2024 2:48 PM CDT Impressions 09/20/2024 4:51 PM CDT Unchanged large left anterior and middle cranial fossa arachnoid cyst managed by a left frontal approach ventriculoperitoneal shunt catheter in unchanged position with stable underlying mass effect, rightward midline shift, and ventricular caliber. Dictated by: Jesus Orr MD The radiology attending physician has personally reviewed this study, and had reviewed and/or edited this written report and agrees with it. Electronically signed by: Gio Marcelo M.D. Narrative 09/20/2024 4:51 PM CDT EXAMINATION: CT head without contrast HISTORY: Arachnoid cyst status post ventriculoperitoneal shunt. TECHNIQUE: CT of the head was performed with images acquired from skull base to vertex without intravenous contrast. COMPARISON: Multiple prior head CTs, most recently 03/13/2024, brain MRI 09/05/2023 FINDINGS: Again seen is a left frontal approach ventriculoperitoneal shunt catheter with tip terminating in the body of the right lateral ventricle. Again seen is a large arachnoid cyst involving the left frontal and middle cranial fossa as which measures approximately 11.2 x 4.0 cm in maximum transaxial dimensions, not significant changed from prior examination. There is persistent rightward midline shift measuring up to 12 mm, also unchanged. Right insula encephalomalacia with associated ex vacuo dilation of the frontal horn of the right lateral ventricle. Overall, the ventricular system is unchanged in size and morphology. Asymmetric periventricular and subcortical white matter hypodensities, right greater than left, likely representing sequela of chronic small vessel ischemic disease. Unchanged lacunar infarct in the left basal ganglia. There is no acute intracranial hemorrhage. The rodriguez-white matter differentiation is normal. Bilateral lens replacements. Pneumatization of the petrous apices. The visualized portions of the mastoids are normal. Mild paranasal sinus mucosal thickening. No fractures are identified. Intracranial atherosclerotic calcifications. Procedure Note Gio Marcelo MD PhD - 09/20/2024 EXAMINATION: CT head without contrast HISTORY: Arachnoid cyst status post ventriculoperitoneal shunt. TECHNIQUE: CT of the head was performed with images acquired from skull base to vertex without intravenous contrast. COMPARISON: Multiple prior head CTs, most recently 03/13/2024, brain MRI 09/05/2023 FINDINGS: Again seen is a left frontal approach ventriculoperitoneal shunt catheter with tip terminating in the body of the right lateral ventricle. Again seen is a large arachnoid cyst involving the left frontal and middle cranial fossa as which measures approximately 11.2 x 4.0 cm in maximum transaxial dimensions, not significant changed from prior examination. There is persistent rightward midline shift measuring up to 12 mm, also unchanged. Right insula encephalomalacia with associated ex vacuo dilation of the frontal horn of the right lateral ventricle. Overall, the ventricular system is unchanged in size and morphology. Asymmetric periventricular and subcortical white matter hypodensities, right greater than left, likely representing sequela of chronic small vessel ischemic disease. Unchanged lacunar infarct in the left basal ganglia. There is no acute intracranial hemorrhage. The rodriguez-white matter differentiation is normal. Bilateral lens replacements. Pneumatization of the petrous apices. The visualized portions of the mastoids are normal. Mild paranasal sinus mucosal thickening. No fractures are identified. Intracranial atherosclerotic calcifications. IMPRESSION: Unchanged large left anterior and middle cranial fossa arachnoid cyst managed by a left frontal approach ventriculoperitoneal shunt catheter in unchanged position with stable underlying mass effect, rightward midline shift, and ventricular caliber. Dictated by: Jesus Orr MD The radiology attending physician has personally reviewed this study, and had reviewed and/or edited this written report and agrees with it. Electronically signed by: Gio Marcelo M.D. us Gloria Canales NP IMG CT PROCEDURES Final Result * (ABNORMAL) Albumin Creatinine Ratio, Urine (01/26/2023 [...] PM CDT 01/26/2023 3:07 PM CDT us Nidia Burgos NP LAB URINE ORDERABLES Katalina perales Result [facility] [address] Department [place] [address] * CT Abdomen Pelvis W Contrast (02/16/2022 [...] Findings Committee. J Am David Radiol. 2017 Nov;14(8):0189-3955. THIS IS AN ELECTRONICALLY VERIFIED FINAL REPORT 02/16/2022 6:14 PM - Electronically signed by Robbin Prince M.D. MJ: STANLEY Report ID: [id number] Reading Location: [place] [address] Procedure Note Robbin Prince MD - 02/16/2022 [...] Findings Committee. J Am David Radiol. 2018 b;15(2):264-273. Management of Incidental Adrenal Masses: A White Paper of the ACRIncidental Findings Committee. J Am David Radiol. 2017 Nov;14(8):3529-0712. THIS IS AN ELECTRONICALLY VERIFIED FINAL REPORT 02/16/2022 6:14 PM - Electronically signed by Robbin Prince M.D. MJ: STANLEY Report ID: [id number] Reading Location: [place] [address] Ruthie Mabel Calderon PROFESSIONAL ENGINEER IMG CT PROCEDURES Katalina l Result from Last 3 Months or Most Recently Relevant to Health Maintenance Insurance MEDICARE [facility] MEDICARE [employer] Advance Directives For more information, please contact: [phone] * Full Code (Latest Code Status on File) Date Activated Date Inactivated Comments 09/03/2023 4:14 AM 09/06/2023 7:22 PM * Full Code Date Activated Date Inactivated Comments 08/31/2023 5:38 PM 09/03/2023 2:37 AM * Full Code Date Activated Date Inactivated Comments 08/18/2023 4:09 PM 08/24/2023 7:22 PM * Full Code Date Activated Date Inactivated Comments 08/05/2023 9:52 PM 08/07/2023 7:11 PM Care Teams Electronic Specialist Relationship Specialty Start Date End Date Sadie Puri NP [address] [facility] [address] [place] [address] PCP - General Internal Medicine 11/30/24 Yamilka Matos MD [address] [facility] [address] [place] [address] [place] [address] Consulting Physician Nephrology 11/30/24 Gloria Canales NP [address] [place] [address] Nurse Practitioner Neurosurgery 11/30/24 Scarlet Cardenas MD [address] [place] [address] [place] [address] Consulting Physician Urology 11/30/24
--- OUTSIDE RECORDS SUMMARY | 2024-12-03 09:34 | XMS_ITS | Encounter Summary ---
Author Organization [facility] Address [address] [place] [address] Phone Care Team Providers Care Solid Waste Collection Worker Name Role Phone Ruthie Calderon CONTRACT MODELER Primary Care Provider Liam FONTAINE MD, Robert Clayton Unavailable Sadie Puri NP Primary Care Provider [phone] Yamilka Matos MD Unavailable [phone] Gloria Canales NP Unavailable [phone] Scarlet Cardenas MD Unavailable [phone] Encounter Details Date Type Department Care [...] on file Legal Sex Male 7:29 AM STAFF DEVELOPMENT COORDINATOR RN Gender Identity Male 09/01/2020 11:55 AM CDT [...] documented as of this encounter Care Teams Solid Waste Collection Worker Relationship Specialty Start Date End Date Ruthie Calderon NP PCP - General Nurse Practitioner 02/24/21 06/07/24 Sadie Puri NP [address] [facility] [address] [place] [address] PCP - General Internal Medicine 11/30/24 [place] [address] [facility] [address] [place] [address] Referring Physician Urology 02/17/22 11/29/24 Yamilka Matos MD [address] [facility] [address] [address] Consulting Physician Nephrology 11/30/24 Gloria Canales NP [address] [facility] [address] [place] [address] Nurse Practitioner Neurosurgery 11/30/24 Scarlet Cardenas MD [address] [place] [address] Consulting Physician Urology 11/30/24 documented as of this encounter
--- OUTSIDE RECORDS SUMMARY | 2024-12-03 09:34 | XMS_ITS | Clinical Summary ---
Author Organization [facility] [place] Address [address] [place] [address] Care Team Providers Care Refrigeration Specialist Name Role Phone Kimberly Navarrete MD Primary Care Provider Source Comments [facility],non-owned Affiliates and Associated Physician Practices is amultiple site organization consisting of ambulatory clinics and hospital sitesin [place], [place], [place] and [place]. This disclosure is being madepursuant to the Care Everywhere program and may not contain all information available regarding this patient. Last updated 18.[facility] [place] Allergies Active Allergy Reactions Criticality Noted Date Comments Nitrofurantoin Nausea and/or Vomiting Medium 8 Sulfamethoxazole W-Trimethoprim Nausea and/or Vomiting Medium 07/14/2017 Medications * This document contains information received from the source organization and may not represent a complete record from that organization. * Be aware that medications may not be up to date on this document. Alwaysverify current medications with the patient. Multiple Vitamins-Mineral s (CENTRUM SILVER ADULT 50+ PO) Take by mouth once daily Active triamcinolone acetonide (KENALOG) 0.1 % ointment Apply to affected area 2 times daily as needed Active hydrocortisone (HYTONE) 2.5 % cream Apply to affected area 2 times daily as needed Active venlafaxine XR 24hr (EFFEXOR XR) 37.5 MG capsule Take 1 capsule by mouth once daily for 7 days 7 capsule 9 Active Docusate Sodium (DSS) 100 MG Take 100 mg by mouth 2 times daily as needed Active Cholecalciferol 50 MCG (2000 UT) Take 50 mcg by mouth once daily 4 Active divalproex ER 24hr (Depakote ER) 500 MG tabletIndication s:Mood Disorder Take 1 (one) tablet by mouth 2 times daily Reasons: Mood Disorder 60 tablet 4 Active venlafaxine XR 24hr (Effexor XR) 150 MG capsuleIndicatio ns:Major Depressive Disorder Take 1 (one) capsule by mouth daily with breakfast Reasons: Major Depressive Disorder 30 capsule 4 Active metFORMIN (Glucophage) 1000 MG tablet Take 1 (one) tablet by mouth 2 times daily with morning and evening meal 60 tablet 4 Active atorvastatin (Lipitor) 40 MG tabletIndication s:Hyperlipidemia Take 1 (one) tablet by mouth once daily Reasons: High Amount of Fats in the Blood 30 tablet 4 Active QUEtiapine (SEROquel) 100 MG tablet Take 1 (one) tablet by mouth at bedtime 30 tablet 4 Active amLODIPine (Norvasc) 2.5 MG tabletIndication s:Hypertension Take 1 (one) tablet by mouth once daily Reasons: High Blood Pressure Disorder 30 tablet 4 Active nystatin (Mycostatin) 989716 UNIT/GM powderIndication s:Cutaneous Candidiasis Apply to affected area 2 times daily Reasons: Skin Infection due to Bozena Yeast 15 g 4 Active calcium 500 MG tablet Take 1 (one) tablet by mouth 2 times daily with morning and evening meal 60 tablet 4 Active finasteride (Proscar) 5 MG tabletIndication s:Benign Prostatic Hypertrophy Take 1 (one) tablet by mouth once daily Reasons: Benign Enlargement of Prostate 30 tablet 4 Active tamsulosin (Flomax) 0.4 MG capsule Take 1 (one) capsule by mouth at bedtime At the same time every day after a meal. 30 capsule 4 Active clopidogrel (plaVIX) 75 MG tablet Take 1 (one) tablet by mouth once daily 30 tablet 4 Active pantoprazole EC (Protonix) 40 MG tablet Take 1 (one) tablet by mouth once daily 30 tablet 4 Active Active Problems Problem Noted Date Diagnosed Date Bilateral lower extremity edema 12/12/2023 Hypokalemia 11/10/2023 Electrocution 11/10/2023 Severe episode of recurrent major depressive disorder, with psychotic features 11/10/2023 Dementia with behavioral disturbance 11/10/2023 TIA (transient ischemic attack) 01/12/2019 Sensorineural hearing loss (SNHL) of both ears 1 BPH (benign prostatic hyperplasia) 08/09/2017 Type 2 diabetes mellitus without complications 0 06/06/2017 Overview (07/18/2024): diagnosed IMO 07/18/2024 Enlarged prostate without lo wer urinary tract symptoms (luts) 06/06/2017 Pneumonitis due to inhalation of food and vomit 05/24/2017 Abnormal weight loss 05/10/2017 Acute embolism and thrombosis of right femoral v ein 04/24/2017 Gastrostomy status 04/24/2017 Hemiplegia and 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 [...] and heating? 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 Legal Sex Male 5:48 PM TEXTBOOK ASSOCIATE Gender Identity Not on file Sexual [...] 7:30 PM CDT Height 175.3 cm (5' 9) 12/12/2023 7:30 PM CDT Body Mass Index [...] 2023 02/05/2022, 02/05/2022, 02/19/2021, Additional history exists DEPRESSION SCREENING 04/18/2024 DIABETES - URINE PROTEIN SCREENING 04/18/2024 01/26/2023, 06/27/2017 DIABETES-HGB A1C 05/13/2024 11/11/2023, 08/2023, 09/30/2022, Additional history exists DIABETES-SERUM CREATININE 11/27/20242023, 11/20/2023, 11/12/2023, Additional history exists INFLUENZA VACCINE (#1) 2024 , 01/27/2023, 02/04/2022, Additional history exists DTAP/TDAP/TD VACCINES (4 - [...] - 105 mg/dL 11/28/2023 9:34 AM CDT [facility] Sodium 139 136 - 145 mmol/L 11/28/2023 9:34 AM CDT [facility] Potassium 4.2 3.5 - 5.1 mmol/L 11/28/2023 9:34 AM CDT [facility] Chloride 103 98 - 107 mmol/L 11/28/2023 9:34 AM CDT [facility] CO2 28 22 - 29 mmol/L 11/28/2023 9:34 AM CDT [facility] Calcium 9.1 8.4 - 10.4 mg/dL 11/28/2023 9:34 AM CDT [facility] Anion Gap 8 6 - 16 mmol/L 11/28/2023 9:34 AM CDT [facility] BUN 23 7 - 26 mg/dL 11/28/2023 9:34 AM CDT [facility] Creatinine 1.03 0.72 - 1.25 mg/dL 11/28/2023 9:34 AM CDT [facility] eGFR by CKD-EPI 75(L) >=90 mL/min/1.7 3 m2 11/28/2023 9:34 AM CDT [facility] Blood BLOOD SPECIMEN / Unknown Venipuncture / Unknown 11/28/2023 9:01 AM CDT 11/28/2023 9:03 AM CDT Sue Clemens MD LAB - CHEMISTRY ORDERABLES Katalina perales Result [facility] [address] [place] [address] * (ABNORMAL) HEMOGLOBIN A1C (11/11/2023 7:13 AM CDT) Hemoglobin A1c 7.6(H) <5.7 % 11/11/2023 7:41 AM CDT [facility] Estimated Average Glucose 171 mg/dL 11/11/2023 7:41 AM CDT [facility] Blood BLOOD SPECIMEN / Unknown Venipuncture / Unknown 11/11/2023 7:13 AM CDT 11/11/2023 7:25 AM CDT Narrative [facility] - 11/11/2023 7:41 AM CDT HbA1c [...] exceeds 5% in the specimen. The Wallace Alinity assay for the measurement of HbA1c is a National Glycohemoglobin Standardization Program (NGSP) certified method. us Sue Clemens MD LAB - CHEMISTRY ORDERABLES Katalina l Result [facility] [address] [place] [address] * EYE EXAM (02/24/2021) Anatomical Region Laterality Modality Other 02/24/2021 Narrative 02/24/2021 Ordered by an unspecified provider. us Scanned Document SCANNING ONLY Final Result * MICROALB/CREAT RATIO URINE RANDOM PANEL (06/27/2017 1:02 PM CDT) Albumin Random Urine 16.0 Not Established mcg/mL [facility] Creatinine Urine 297 Not Established mg/dL [facility] Comment:Result obtained by [place]. Urine Albumin/Creati nine Ratio 5 <30 mg/g [facility] Urine specimen (specimen) URINE / Unknown 06/27/2017 1:02 PM CDT 06/27/2017 1:35 PM CDT us Kimberly Navarrete MD LAB - URINE CHEMISTRY ORDERABLES Final Result Performing Organization Address [facility]/ZIP Co de Phone Number [address] [phone] * HEPATITIS C AB SCREEN RFLX PCR QUANT (06/27/2017 12:07 PM CDT) Hepatitis C Antibody Non-react dennys Non-reac tive [facility] Comment: Hepatitis C Antibody screen indicates [...] PM CDT Kimberly Navarrete MD LAB - CHEMISTRY [place] [address], [facility] [phone] from Last 3 Months or Most Recently Relevant to Health Maintenance Insurance MEDICARE [facility] Address: [facility] [id number] [place] [address] MEDICARE ANTHEM Advance Directives Documents on File Type Date Recorded 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
--- OUTSIDE RECORDS SUMMARY | 2024-12-03 09:34 | XMS_ITS | Encounter Summary ---
Author Organization [facility] Address [address] [place] [address] Phone Care Team Providers Care Lead Atg Developer Name Role Phone Ruthie Calderon FURNITURE MECHANIC Primary Care Provider Liam FONTAINE MD, Robert Clayton Unavailable Sadie Puri NP Primary Care Provider [phone] Yamilka Matos MD Unavailable [phone] Gloria Canales NP Unavailable [phone] Scarlet Cardenas MD Unavailable [phone] Encounter Details Date Type Department Care [...] on file Legal Sex Male 7:29 AM FORMS EXAMINER Gender Identity Male 09/01/2020 11:55 AM CDT [...] documented as of this encounter Care Teams Lead Atg Developer Relationship Specialty Start Date End Date Ruthie Calderon NP PCP - General Nurse Practitioner 02/24/21 06/07/24 Sadie Puri NP [address] [facility] [address] [place] [address] PCP - General Internal Medicine 11/30/24 Yaw Wheeler III, MD [address] [facility] [address] [place] [address] Referring Physician Urology 02/17/22 11/29/24 Yamilka Matos MD [address] [facility] [address] [address] Consulting Physician Nephrology 11/30/24 Gloria Canales NP [address] [facility] [place] [address] Nurse Practitioner Neurosurgery 11/30/24 Scarlet Cardenas MD [address] [place] [address] Consulting Physician Urology 11/30/24 documented as of this encounter
--- OUTSIDE RECORDS SUMMARY | 2024-12-03 09:34 | XMS_ITS | Encounter Summary ---
Author Organization [facility] Address [address] [place] [address] Phone Care Team Providers Care Business Analysis Professional Name Role Phone Kimberly Navarrete MD Primary Care Provider Rachele Daley OT Unavailable [phone] Ruthie Armas Unavailable [phone] Ruthie Calderon FLOOR SERVICE WORKER SPRING Primary Care Provider Liam FONTAINE MD, Robert Clayton Unavailable Sadie Puri FLOOR SERVICE WORKER [place] Primary Care Provider [phone] Yamilka Matos MD Unavailable [phone] Gloria Canales FLOOR SERVICE WORKER [place] Unavailable [phone] Scarlet Cardenas MD Unavailable [phone] Encounter Details Date Type Department Care Team (Late st Contact Info) Description 02/06/2021 Telephone [facility] Orthopaedic Surgery [facility] Advanced Medicine 6th [place] [address] [place] [address] Yahaira Hdez MD [address] [facility] [id number] [place] [address] Social History Tobacco Use Types Packs/Day Years [...] on file 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 Gender Identity Male 09/01/2020 11:55 AM [...] documented as of this encounter Care Teams Business Analysis Professional Relationship Specialty Start Date End Date Kimberly Navarrete MD PCP - General Internal Medicine 10/26/18 02/23/21 Ruthie Calderon, JUNE PCP - General Nurse Practitioner 02/24/21 06/07/24 Sadie Puri, JUNE [address] [address] PCP - General Internal Medicine 11/30/24 Rachele Daley OT Occupational Therapist Occupational Therapy 05/19/20 1 05/15/20 Ruthie Armas SLP Speech Language Pathologist Speech Therapy 05/29/20 02/12/21 Yaw Wheeler III, MD [address] [address] Referring Physician Urology 02/17/22 11/29/24 Yamilka Matos MD [address] [address] Consulting Physician Nephrology 11/30/24 Gloria Canales NP [address] [place], [place] [id number] Nurse Practitioner Neurosurgery 11/30/24 Scarlet Cardenas MD [address] [place] [address] [place] [address] Consulting Physician Urology 11/30/24 documented as of this encounter
--- OUTSIDE RECORDS SUMMARY | 2024-12-03 09:34 | XMS_ITS | Encounter Summary ---
Author Organization [facility] Address [address] [facility] [place] [address] Care Team Providers Care Nutrition Intern Name Role Phone Kimberly Navarrete MD Primary Care Provider Reason for Visit * Reason Onset Date Comments General 11/03/2018 c/b from PCP Encounter Details Date Type Department Care Team (Late st Contact Info) Description 11/03/2018 Telephone [facility] General Internal Medicine [address] [facility] [address] [place] [address] Kimberly Navarrete MD [address] [facility] [address] [place] [address] General (c/b from PCP) Social History Tobacco Use Types Packs/Day Years Used Date Smoking Tobacco: Former Pipe Smokeless Tobacco: Never Comments:quit 1979 Alcohol Use Standard Drinks/Week Comments No 0 (1 standard drink = 0.6 oz pur e alcohol) Sex and Gender Information Value Date Recorded Sex Assigned at Male 03/04/2022 10:00 AM SCRAPER HAND Legal Sex Male 5:48 PM SCRAPER HAND Gender Identity Not on file Sexual Orientation [...] pt should go back on protonix. CB# [phone] Routed to provider for further review documented in this encounter Plan of Treatment Not on file documented as of this encounter Visit Diagnoses Not on filedocumented in this encounter Additional Health Concerns Infection Onset Date Last Indicated Resolved Time COVID-19 Under Investigation 11/20/2023 11/20/2023 11/20/2023 10:51 PM CDT COVID-19 Confirmed 11/20/2023 11/20/2023 4:33 AM CDT documented as of this encounter Care Teams Nutrition Intern Relationship Specialty Start Date End Date Kimberly Navarrete MD PCP - General 07/17/17 documented as of this encounter
[2024-12-03 09:49] LABS: Hematocrit 43.2 % (42.0-52.0); Hemoglobin 14.0 g/dL (14.0-18.0); Immature Granulocyte Percent A 0.4 % (0-0.5); Lymphocytes Absolute Auto 1.57 K/mm3 (0.9-3.2); Mean Corpuscular HGB Conc 32.4 g/dl (32-36); Mean Corpuscular Hemoglobin 29.5 pg (26-34); Mean Corpuscular Volume 90.9 fl (80-100); Nucleated Red Blood Cells Absolute Auto 0.000 K/mm3 (0.0-0.012); Nucleated Red Blood Cells Perc 0.0 % (0.0-0.2); Platelet Count Result 205 k/mm3 (150-375); Red Blood Count 4.75 M/mm3 (4.6-6.20); White Blood Count 8.4 K/mm3 (4.5-10.0)
[2024-12-03 10:02] LABS: Alanine Aminotransferase 26 U/L (6-50); Albumin Level 4.3 g/dL (3.5-5.1); Alkaline Phosphatase 116 U/L (38-126); Anion Gap 9 mmol/L (4-12); Aspartate Amino Transferase 29 U/L (17-59); Bilirubin,Total 0.8 mg/dL (0.2-1.3); Blood Urea Nitrogen 22 mg/dL (9-20); Calcium 9.5 mg/dL (8.4-10.2); Carbon Dioxide 26 mmol/L (22-30); Chloride 102 mmol/L (98-107); Estimated CRCL calculation 61 ml/min; Estimated Glomerular Filt Rate > 60; Glucose 227 mg/dL (65-110); Potassium 4.6 mmol/L (3.4-5.0); Sodium 137 mmol/L (137-145); Total Protein 7.8 g/dL (6.3-8.2)
[2024-12-03 10:11] LABS: Troponin I < 0.012 ng/mL (0.000-0.034)
[2024-12-03 10:57] LABS: INR 1.0; Partial Thromboplastin Time 22.9 Seconds (22.3-36.8); Prothrombin Time 13.2 Seconds (11.1-14.7)
--- NOTE | 2024-12-03 11:00 | PC.NURSE ---
Pt waiting transport to transfer to [facility]. Pt's blood pressure has consistently been 170-180's systolic, MD Tierney aware. No new orders at this time.
[2024-12-03 11:12] LABS: Add Urine Microscopic? YES; Appearance Urine Clear (Clear); Glucose Urine UA Negative (Negative); Leukocyte Esterase Ur 3+ LEU/UL (Negative); Nitrate Urine Negative (Negative); Non Pathogenic Casts 0-2; Specific Grav Ur 1.016 (1.001-1.035)
--- NOTE | 2024-12-03 12:30 | PC.NURSE ---
EMS here for transport to [facility]. Family leaving to meet pt there. Pt was incontinent, per his baseline, cleaned up, clean depends applied. Pt transferred to EMS stretcher for transport.
== END 2024-12-03 12:35 | disposition short-term general hospital (02) ==
LOC: ANHED 09:11
PROVIDERS: Emergency Provider General Practice
DX: R47.81 Slurred speech (principal); G93.0 Cerebral cysts; Z98.2 Presence of cerebrospinal fluid drainage device; R91.1 Solitary pulmonary nodule; E11.9 Type 2 diabetes mellitus without complications; I69.992 Facial weakness following unspecified cerebrovascular disease; Z79.01 Long term (current) use of anticoagulants
CPT/HCPCS: 36415; 70250; 70450; 71045; 74018; 80053; 81001; 82948; 84484; 85025; 85610; 85730; 87086; 93005; 99285

== ENCOUNTER 2024-12-31 07:15 | Inpatient (IN) | payer MEDICARE, BC, SELFPAY ==
[2024-12-31] VITALS (80 sets, daily range): BP systolic 55–171; BP diastolic 26–134; PULSE 75–110; RESP 14–47; TEMP 35.6–38.2; O2SAT 87–97; BMI 27.6
--- NOTE | ~2024-12-31 | XR_ITS ---
EXAMINATION: XR chest 1V portable COMPARISON: No comparisons available. HISTORY: tachypneic febrile FINDINGS: Small right basilar infiltrate No pneumothorax. Heart is normal size. Mediastinal and hilar contours are within normal limits. Bony thorax no acute abnormality. Miscellaneous: None Impression: Early right lower lobe pneumonia Reviewed, dictated and finalized at location A. Impression: Early right lower lobe pneumonia
--- NOTE | ~2024-12-31 | CT_ITS ---
EXAMINATION: CT chest abdomen pelvis wo con DATE: 12/31/2024 08:51 INDICATION: Sepsis, hypoxia, tachypnea and acute renal failure. TECHNIQUE: Computed tomography (CT) of the chest, abdomen, and pelvis was performed with 100 mL Omnipaque-350 intravenous contrast. Automated exposure control and iterative reconstruction technique were employed. The dose-length product was 1303.84 mGy-cm. COMPARISON: None FINDINGS: CHEST CT: There is consolidation with air bronchograms and without commensurate volume loss in the right lower lobe consistent with pneumonia. Additional sagittal tree-in-bud opacities somewhat distorted by respiratory motion in the posterior right upper lobe and right middle lobe also consistent with pneumonia. There are a few bilateral calcified pleural plaques consistent with sequela of chronic asbestosis exposure. There are also few small calcified pulmonary nodules in the right lower lobe along with calcified right hilar and mediastinal lymph nodes consistent with old granulomatous disease. Heart size is normal. A scar coronary artery calcific lesion. No pericardial effusion. Thoracic aorta is normal in caliber. No pathologically enlarged thoracic lymphadenopathy. Severe thoracic spondylosis. There is chronic mild anterior wedging of a few thoracic vertebral bodies. ABDOMEN/PELVIS CT: Percutaneous gastrostomy tube bulb in the distal body of the stomach. Liver, pancreas, bilateral adrenal glands and kidneys are normal. Splenic calcification consistent with old granulomatous disease. There is suggestion of some increased density along the posterior wall of the nondistended gallbladder which could be due to sludge or gallstones. No pericholecystic inflammatory stranding to suggest acute cholecystitis. Calcified. A few small calcifications along the gino hepatis which could be atherosclerotic calcific lesions or calcified lymph nodes consistent with old granulomatous disease. Likely status post appendectomy with suture line along the tip the cecum. Likely ventriculoperitoneal shunt catheter which courses caudally along the anterior left chest wall and extends into the left abdomen with distal tip in the central pelvis. Small amount of ascites in the deep pelvis. Mild scattered diverticulosis with sigmoid predominance without adjacent from trace stranding to suggest diverticulitis. No bowel obstruction. Schuster catheter within the bladder which demonstrates irregular wall thickening with mild surrounding inflammatory stranding suspicious for cystitis. No pathologically enlarged abdominal or pelvic lymphadenopathy. Severe lumbar spondylosis. IMPRESSION: 1. Pneumonia, most advanced the right lower lobe with additional smaller regions in the dependent right middle and upper lobes. 2. Prominent wall thickening of the decompressed bladder with mild surrounding stranding concerning for cystitis which could be acute or chronic. Correlate with urinalysis. 3. Likely sludge versus gallstones within the dependent aspect of the otherwise normal-appearing gallbladder. 4. Small amount of ascites in the deep pelvis along side the tip of a ventriculoperitoneal shunt catheter. Reviewed, dictated and finalized at location A. IMPRESSION: 1. Pneumonia, most advanced the right lower lobe with additional smaller region s in the dependent right middle and upper lobes. 2. Prominent wall thickening of the decompressed bladder with mild surrounding stranding concerning for cystitis which could be acute or chronic. Correlate wi th urinalysis. 3. Likely sludge versus gallstones within the dependent aspect of the otherwise normal-appearing gallbladder. 4. Small amount of ascites in the deep pelvis along side the tip of a ventricul operitoneal shunt catheter.
--- NOTE | ~2024-12-31 | CT_ITS ---
EXAMINATION: CT brain wo con DATE: 12/31/2024 08:50 INDICATION: Seizures. Stroke. Ventricular peritoneal shunt. TECHNIQUE: Computed tomography (CT) of the head was performed without intravenous contrast. Sagittal and coronal reconstructions were performed. The mA was adjusted according to patient size. Iterative reconstruction technique was employed. The dose-length product was 908.00 mGy-cm. COMPARISON: head CT dated 12/03/2024 06/06/1989 FINDINGS: Again seen is a large chronic fluid attenuation likely arachnoid cyst which follows CSF signal on MRI sequences from 06/05/2018 in which exerts significant mass effect upon the left cerebral hemisphere with chronic [id number] midline shift which measures approximately 1.4 cm in the current study which is unchanged since the most recent CT and which is decreased from 1.[address] dated 06/06/2018 prior to placement of a left frontal ventriculoperitoneal shunt. The shunt is unchanged since the most recent study extending from a left frontal meron hole across the arachnoid cyst in the anterior horn of the left lateral ventricle with distal tip along the lateral wall of the anterior horn of the right lateral ventricle. The catheter extends to a valve near the meron hole and subsequently along a catheter extending along the posterior left skull with no evident kinks or discontinuities along the visualized portion of the catheter. No interval change in a region of encephalomalacia involving portions of the right basal ganglia, right frontal lobe and insula consistent with sequela of chronic infarct. No acute intracranial hemorrhage, acute infarction or abnormal extra axial fluid collection. Ventricles are unchanged with architectural distortion resulting from a mass effect from the arachnoid cyst. No solid masses identified. Changes of bilateral intraocular lens replacement. The orbits, paranasal sinuses and mastoid air cells are normal. IMPRESSION: 1. No acute intracranial process. 2. Large likely arachnoid cyst overlying the anterior left frontal and temporal lobes resulting in significant but stable mass effect with 1.4 cm right to left midline shift without significant change since prior study. 3. Unchanged left frontal ventricular drainage catheter which extends across the arachnoid cyst, the anterior horn of the left lateral ventricle with distal tip positioned along the lateral wall of the right lateral ventricle. Ventricles are unchanged since the prior study. 4. Unchanged region of encephalomalacia in the right basal ganglia, frontal lobe and insula consistent with sequela of chronic infarct. Reviewed, dictated and finalized at location A. IMPRESSION: 1. No acute intracranial process. 2. Large likely arachnoid cyst overlying the anterior left frontal and temporal lobes resulting in significant but stable mass effect with 1.4 cm right to lef t midline shift without significant change since prior study. 3. Unchanged left frontal ventricular drainage catheter which extends across th e arachnoid cyst, the anterior horn of the left lateral ventricle with distal t ip positioned along the lateral wall of the right lateral ventricle. Ventricles are unchanged since the prior study. 4. Unchanged region of encephalomalacia in the right basal ganglia, frontal lob e and insula consistent with sequela of chronic infarct.
--- NOTE | 2024-12-31 07:19 | ECG_ITS ---
Test Date: 2024-12-31 07:21:07 Measurements Intervals [place] Rate: 101 P: 56 [place]: 142 QRS: 59 QRSD: 73 T: 65 QT: 332 QTc: 431 Interpretive Statements SINUS TACHYCARDIA POSSIBLE LEFT ATRIAL ENLARGEMENT [-0.1mV P WAVE IN V1/V2] ABNORMAL ECG Compared to ECG 12/03/2024 09:39:22 Sinus rhythm no longer present Electronically Signed On 12-31-2024 07:52:14 CDT by Cholo Davenport M.D.
--- NOTE | 2024-12-31 07:21 | ED.GENADULT ---
HPI - General Adult General Chief complaint: Weakness Stated complaint: sepsis alert Source: EMS Mode of arrival: EMS Limitations: physical limitation and clinical condition History of Present Illness HPI narrative: Patient presents from local nursing facility as a sepsis activiation by EMS given he was febrile with an axillary temperature of a 102? F, tachypneic at 50 breaths per minute, 92% on supplemental oxygen, tachycardic at 1:10 a.m., and initially reported blood pressure of 50/20 by staff as he receives vital signs being checked every 4 hours. For EMS his initial systolic blood pressure was 80. Upon arrival he already had [address], 1 dated 12/19/2024. EMS placed another. He was reportedly receiving IV antibiotics at 1 point although initially unclear as staff at the facility reported that he was new to them. He is reportedly his baseline mentation which is alert and oriented times 0, nonverbal. Related Data Home Medications ?Medication ?Instructions ?Recorded ?Confirmed ?Last Taken ?Type Centrum Silver Men 1 tab-cap PO DAILY 12/12/19 12/31/24 Unknown History acetaminophen 325 mg tablet 325 mg PO Q6H PRN Pain 12/12/19 12/31/24 Unknown History atorvastatin 40 mg tablet 40 mg PO DAILY 12/12/19 12/31/24 Unknown History clopidogrel 75 mg tablet 75 mg PO DAILY 12/12/19 12/31/24 Unknown History empagliflozin 10 mg tablet 25 mg PO DAILY 12/12/19 12/31/24 Unknown History (Jardiance) Held on 01/01/22. Instructions: Resume on 01/05/22. until you have discussed with your PCp on what he wants him to do finasteride 5 mg tablet 5 mg PO DAILY 12/12/19 12/31/24 Unknown History lisinopril 10 mg tablet 10 mg PO DAILY 12/31/21 12/31/24 12/30/24 History aspirin 81 mg capsule 81 mg PO DAILY 12/31/24 12/31/24 Unknown History doxazosin 1 mg tablet (Cardura) 1 mg PO DAILY 12/31/24 12/31/24 Unknown History famotidine 20 mg tablet 20 mg PO BID 12/31/24 12/31/24 Unknown History insulin lispro 100 unit/mL 1 sliding scale dose subcut 12/31/24 12/31/24 Unknown History subcutaneous pen (Humalog KwikPen USEASDIRECTD (U-100) Insulin) polyethylene glycol 3350 17 17 g PO DAILY 12/31/24 12/31/24 Unknown History gram/dose oral powder (Miralax) risperidone 0.25 mg tablet 0.25 mg PO BID 12/31/24 12/31/24 Unknown History sennosides 8.6 mg-docusate sodium 1 tab-cap PO BID 12/31/24 12/31/24 Unknown History 50 mg tablet valproic acid (as sodium salt) 250 500 mg PO Q12H 12/31/24 12/31/24 Unknown History mg/5 mL oral solution Allergies Allergy/AdvReac Type Severity Reaction Status Date / Time nitrofurantoin Allergy Intermediate Nausea and Verified 12/31/24 11:52 Vomiting sulfamethoxazole Allergy Intermediate Nausea and Verified 12/31/24 11:52 Vomiting PMFSH Past Medical History Medical History Uses feeding tube Indwelling Schuster catheter present Essential (primary) hypertension Epilepsy, unspecified, not intractable, without status epilepticus Major depressive disorder, single episode, moderate Hyperlipidemia, unspecified Type 2 diabetes mellitus with diabetic chronic kidney disease Other dysphagia Palpitations Benign prostatic hyperplasia without lower urinary tract symptoms Chronic kidney disease, stage 2 (mild) Acute kidney failure, unspecified Other cerebral infarction due to occlusion or stenosis of small artery Dietary counseling and surveillance Atelectasis Acute respiratory failure, unspecified whether with hypoxia or hypercapnia Constipation, unspecified Aspiration pneumonia Obstructive and reflux uropathy, unspecified Altered mental status, unspecified Arachnoid cyst Diabetes Transient ischemic attack (TIA) Surgical History Surgical History 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 Mother No problems noted. Social History Social History (Updated 01/01/25 @ 17:27 by Neto Pat MD) Social History: . Code Status: DNR Years smoked: 4 Smoking status: Former smoker Tobacco type: pipe Second hand tobacco smoke exposure: No Alcohol intake: former Drinks per week: 1 Substance use: never Substance use type: does not use Living arrangements: penitentiary Additional living arrangements comments: ever care of Lizzy since 12/26/2024 Spiritual care concerns: No Exam Narrative: GENERAL: Chronically ill appearing, and in no acute distress. HEAD: Normocephalic, atraumatic. Shunt. EYES: Non injected, non icteric ENT: Nares clear, no rhinorrhea or epistaxis. CHEST: Tachypneic. diminished lung sounds on the right. HEART: Tachycardic rate and rhythm. . ABDOMEN: Soft, nondistended. No rigidity or guarding. Not peritoneal. G-tube in place. EXTREMITIES: No lower extremity edema. SKIN: Warm, dry, no rash. : Indwelling Schuster draining dark yellow urine NEURO: Contractures, particularly left upper extremity. Not oriented. Not Answering questions. Non verbal. Not Following commands. Course Vital Signs Vital signs: Vital Signs Temperature 100.8 F H 12/31/24 07:16 Pulse Rate 108 H 12/31/24 07:16 Respiratory Rate 28 H 12/31/24 07:16 Blood Pressure 81/42 L 12/31/24 07:16 Pulse Oximetry 87 L 12/31/24 07:16 Oxygen Delivery Room Air 12/31/24 07:16 Temperature 97.8 F 01/01/25 08:00 Pulse Rate 107 H 01/01/25 08:00 Respiratory Rate 22 H 01/01/25 08:00 Blood Pressure 127/57 L 01/01/25 08:00 Pulse Oximetry 93 01/01/25 08:45 Oxygen Delivery Nasal Cannula 01/01/25 08:45 Oxygen Flow Rate 2 01/01/25 08:45 Fraction of Inspired Oxygen 60 12/31/24 20:[address] [facility] Narrative Medical decision making narrative: Patient [facility] as a code sepsis activation by EMS. In the emergency department he is febrile, tachycardic, tachypneic, hypotensive, and hypoxic. There is clear concern for sepsis so protocol ordered including lactic, CRP, blood cultures, and broad-spectrum antibiotics, initially to cover hospital-acquired pneumonia as initial presumptive diagnosis. EMS had administered approximately 700cc IV fluids at the time of arrival. Will let the rest of this bolus infuse and an additional 1L is ordered. Per review of penitentiary documentation, he is on clopidogrel and aspirin but no other anticoagulation. He is on insulin for his diabetes. For his seizures he is on valproate. It appears he is on supplemental oxygen at baseline based on instructions that note a change in his oxygen tubing , 2L baseline. It had been reported that patient was on IV antibiotics although the timing of this is unclear and no IV antibiotics appear on his penitentiary documentation currently. Indwelling Schuster catheter is exchanged and a temperature sensing Schuster is placed however he is afebrile on rectal temperature and thus rectal suppository acetaminophen ordered. Temp sensing Schuster Initially low when placed however normalizes quickly. sodium is 147 but with correction factor is actually 149 in the setting of his hyperglycemia. had been in the mid 130s on last. hyperglycemia has a small anion gap but not frankly acidotic (CO2 >15). he has acute renal failure given previous creatinine was 0.94. CRP elevated. Troponin within normal limits. Viral swab negative. He has a leukocytosis greater than 16. His anemia represents approximately 2 g drop from previous. lactic acidosis. 30 cc/kg IV fluids would represent 2250 mL. Additional 500 mL is ordered. Will need to correct sodium judiciously. BNP mildly elevated but not to a degree to suggest acute heart failure based on the reference range of the assay especially for patient's age. Dimer elevated; however, with GFR 15-18, there are concerns with proceeding with contrast. Will obtain without at this time. CPK is elevated greater than a 1000 . Initial chest x-ray showing right lower lobe pneumonia. Patient is already receiving antibiotic therapy but will add azithromycin to cover for atypicals. Thyroid function normal. Called Spouse Anette Soto [phone] (cell), left at 9:04am. Then tried to call home phone we have on file, ; left 9:06. She called back 9:07. Had been at [facility] for a stroke. Unable to talk/communicate. She lives in [place]. 60 years. She explicitly notes that he is DNR , would not want chest compressions or intubation, in the event of cardiopulmonary arrest or otherwise. He would NOT want intubated for any reason or placed on a ventilator. Patient had been on 6 L nasal cannula, up titrated to a non-rebreather and then on high-flow nasal cannula. Now on Vapotherm. Son Lyndon Soto, out of town at [facility], approximately 6 hours away. discussed vasopressors and she would want to proceed with this as a temporizing measure. Will start them as peripheral. Patient has evidence of urinary tract infection. already receiving antibiotics. CT as below. == Critical Care: 1 or more vital organ systems impaired with a high probability of imminent or life-threatening deterioration in the patient's condition requiring frequent personal assessment and manipulation of the patient's condition. This included time spent evaluating the patient, speaking with EMS pre-hospital personnel and family, reviewing/interpreting laboratory/imaging studies, discussing the case with consultants or admitting teams, retrieving data and reviewing charts, monitoring for decompensation, documenting the visit, and performing bundled procedures exclusive of separately billed procedures. Differential Diagnosis Differential Diagnosis: Sepsis/septicemia ( hospital-acquired pneumonia, aspiration pneumonia, other pneumonia, urinary tract infection, acute viral syndrome); PE, acute heart failure, failure to thrive Vital Signs Vital Signs: Vital Signs Temperature 100.8 F H 12/31/24 07:16 Pulse Rate 108 H 12/31/24 07:16 Respiratory Rate 28 H 12/31/24 07:16 Blood Pressure 81/42 L 12/31/24 07:16 Pulse Oximetry 87 L 12/31/24 07:16 Oxygen Delivery Room Air 12/31/24 07:16 Temperature 97.8 F 01/01/25 08:00 Pulse Rate 107 H 01/01/25 08:00 Respiratory Rate 22 H 01/01/25 08:00 Blood Pressure 127/57 L 01/01/25 08:00 Pulse Oximetry 93 01/01/25 08:45 Oxygen Delivery Nasal Cannula 01/01/25 08:45 Oxygen Flow Rate 2 01/01/25 08:45 Fraction of Inspired Oxygen 60 12/31/24 20:20 Lab Data 12/31/24 07:42 12/31/24 09:22 Labs: Lab Results 12/31/24 12/31/24 12/31/24 Range/Units 07:42 07:42 07:42 WBC 16.9 H (4.5-10.0) K/mm3 RBC 4.08 L (4.6-6.20) M/mm3 Hgb 11.9 L (14.0-18.0) g/dL Hct 38.9 L (42.0-52.0) % MCV 95.3 (80-100) fl MCH 29.2 (26-34) pg MCHC 30.6 L (32-36) g/dl RDW 15.2 H (11.5-14.5) % Plt Count 324 D (150-375) k/mm3 MPV 9.8 (7.4-10.4) fl Immature Gran % (Auto) 0.6 H (0-0.5) % Neut % (Auto) 80.8 H (45.5-73.1) % Lymph % (Auto) 7.1 L (18.3-44.2) % [place] % (Auto) 10.0 H (2.6-8.5) % Eos % (Auto) 1.1 (0-4.4) % Baso % (Auto) 0.4 (0.2-1.2) % Lymph # (Auto) 1.20 (0.9-3.2) K/mm3 [place] # (Auto) 1.7 H (0.1-0.6) K/mm3 Eos # (Auto) 0.2 (0-0.3) K/mm3 Baso # (Auto) 0.1 (0.0-0.1) K/mm3 Abs Immat Gran (auto) 0.10 H (0.00-0.031) K/mm3 Absolute Neuts (auto) 13.7 H (1.3-6.7) K/mm3 Absolute Nucleated RBC 0.000 (0.0-0.012) K/mm3 Nucleated RBC % 0.0 (0.0-0.2) % PT 15.6 H (11.1-14.7) Seconds INR 1.3 APTT 24.8 (22.3-36.8) Seconds D-Dimer 3.71 H Cancelled (<0.48) ug/mL Sodium 147 H (137-145) mmol/L Potassium 5.0 (3.4-5.0) mmol/L Chloride 113 H (98-107) mmol/L Carbon Dioxide 21 L (22-30) mmol/L Anion Gap 13 H (4-12) mmol/L BUN 100 H D (9-20) mg/dL Creatinine 3.34 H (0.7-1.3) mg/dL Estim Creat Clear Calc 15 ml/min Estimated GFR 18 L (59 - ) Glucose 201 H (65-110) mg/dL POC Capillary Glucose (65-105) mg/dl Lactic Acid 2.3 H (0.7-2.0) mmol/L Calcium 9.3 (8.4-10.2) mg/dL Total Bilirubin 0.8 (0.2-1.3) mg/dL AST 41 (17-59) U/L ALT 26 (6-50) U/L Alkaline Phosphatase 86 (38-126) U/L Total Creatine Kinase 1164 H (55-170) U/L Troponin I 0.027 (0.000-0.034) ng/mL C-Reactive Protein 4.6 H (<1.0) mg/dL NT-Pro-B Natriuret Pep 335 H Cancelled (19.9-100) pg/mL Total Protein 7.4 (6.3-8.2) g/dL Albumin 3.5 (3.5-5.1) g/dL Lipase 93 (23-300) U/L TSH 1.760 (0.465-4.680) uIU/mL Urine Color (Yellow) Urine Appearance (Clear) Urine pH (5.0-9.0) Ur Specific [place] (1.001-1.035) Urine Protein (Negative) mg/dL Urine Glucose (UA) (Negative) mg/dL Urine Ketones (Negative) mg/dL Ur Blood (Man) (Negative) Urine Nitrate (Negative) Urine Bilirubin (Negative) Urine Urobilinogen (<2.0) mg/dL Add Ur Microanalysis Leukocyte Esterase Rfl (Negative) ALEXEY/UL Urine RBC (0-2) /hpf Urine WBC (0-3) /hpf Ur Squamous Epith Cells (Few) /hpf Urine Bacteria (None) /hpf Nasal MRSA (PCR) (NOT DETECTE) Influenza A (RT-PCR) Negative (Negative) Influenza B (RT-PCR) Negative (Negative) RSV (RT-PCR) Negative (Negative) SARS-CoV-2 RNA (RT-PCR) Negative (Negative) 12/31/24 12/31/24 12/31/24 Range/Units 08:15 08:19 09:22 WBC (4.5-10.0) K/mm3 RBC (4.6-6.20) M/mm3 Hgb (14.0-18.0) g/dL Hct (42.0-52.0) % MCV (80-100) fl MCH (26-34) pg MCHC (32-36) g/dl RDW (11.5-14.5) % Plt Count (150-375) k/mm3 MPV (7.4-10.4) fl Immature Gran % (Auto) (0-0.5) % Neut % (Auto) (45.5-73.1) % Lymph % (Auto) (18.3-44.2) % [place] % (Auto) (2.6-8.5) % Eos % (Auto) (0-4.4) % Baso % (Auto) (0.2-1.2) % Lymph # (Auto) (0.9-3.2) K/mm3 [place] # (Auto) (0.1-0.6) K/mm3 Eos # (Auto) (0-0.3) K/mm3 Baso # (Auto) (0.0-0.1) K/mm3 Abs Immat Gran (auto) (0.00-0.031) K/mm3 Absolute Neuts (auto) (1.3-6.7) K/mm3 Absolute Nucleated RBC (0.0-0.012) K/mm3 Nucleated RBC % (0.0-0.2) % PT (11.1-14.7) Seconds INR APTT (22.3-36.8) Seconds D-Dimer (<0.48) ug/mL Sodium 148 H (137-145) mmol/L Potassium 5.0 (3.4-5.0) mmol/L Chloride 115 H (98-107) mmol/L Carbon Dioxide 22 (22-30) mmol/L Anion Gap 11 (4-12) mmol/L BUN 98 H (9-20) mg/dL Creatinine 3.01 H (0.7-1.3) mg/dL Estim Creat Clear Calc 16 ml/min Estimated GFR 20 L (59 - ) Glucose 208 H (65-110) mg/dL POC Capillary Glucose 165 H (65-105) mg/dl Lactic Acid (0.7-2.0) mmol/L Calcium 8.7 (8.4-10.2) mg/dL Total Bilirubin (0.2-1.3) mg/dL AST (17-59) U/L ALT (6-50) U/L Alkaline Phosphatase (38-126) U/L Total Creatine Kinase (55-170) U/L Troponin I (0.000-0.034) ng/mL C-Reactive Protein (<1.0) mg/dL NT-Pro-B Natriuret Pep (19.9-100) pg/mL Total Protein (6.3-8.2) g/dL Albumin (3.5-5.1) g/dL Lipase (23-300) U/L TSH (0.465-4.680) uIU/mL Urine Color Dark yellow (Yellow) Urine Appearance Turbid H (Clear) Urine pH 5.0 (5.0-9.0) Ur Specific [place] 1.024 (1.001-1.035) Urine Protein 2+ H (Negative) mg/dL Urine Glucose (UA) Negative (Negative) mg/dL Urine Ketones Trace H (Negative) mg/dL Ur Blood (Man) 1+ H (Negative) Urine Nitrate Positive H (Negative) Urine Bilirubin 2+ H (Negative) Urine Urobilinogen 0.2 (<2.0) mg/dL Add Ur Microanalysis Need manual Leukocyte Esterase Rfl 2+ H (Negative) ALEXEY/UL Urine RBC Noted (0-2) /hpf Urine WBC >100 H (0-3) /hpf Ur Squamous Epith Cells None seen (Few) /hpf Urine Bacteria Noted (None) /hpf Nasal MRSA (PCR) Not detected (NOT DETECTE) Influenza A (RT-PCR) (Negative) Influenza B (RT-PCR) (Negative) RSV (RT-PCR) (Negative) SARS-CoV-2 RNA (RT-PCR) (Negative) 12/31/24 12/31/24 Range/Units 09:56 12:01 WBC (4.5-10.0) K/mm3 RBC (4.6-6.20) M/mm3 Hgb (14.0-18.0) g/dL Hct (42.0-52.0) % MCV (80-100) fl MCH (26-34) pg MCHC (32-36) g/dl RDW (11.5-14.5) % Plt Count (150-375) k/mm3 MPV (7.4-10.4) fl Immature Gran % (Auto) (0-0.5) % Neut % (Auto) (45.5-73.1) % Lymph % (Auto) (18.3-44.2) % [place] % (Auto) (2.6-8.5) % Eos % (Auto) (0-4.4) % Baso % (Auto) (0.2-1.2) % Lymph # (Auto) (0.9-3.2) K/mm3 [place] # (Auto) (0.1-0.6) K/mm3 Eos # (Auto) (0-0.3) K/mm3 Baso # (Auto) (0.0-0.1) K/mm3 Abs Immat Gran (auto) (0.00-0.031) K/mm3 Absolute Neuts (auto) (1.3-6.7) K/mm3 Absolute Nucleated RBC (0.0-0.012) K/mm3 Nucleated RBC % (0.0-0.2) % PT (11.1-14.7) Seconds INR APTT (22.3-36.8) Seconds D-Dimer (<0.48) ug/mL Sodium (137-145) mmol/L Potassium (3.4-5.0) mmol/L Chloride (98-107) mmol/L Carbon Dioxide (22-30) mmol/L Anion Gap (4-12) mmol/L BUN (9-20) mg/dL Creatinine (0.7-1.3) mg/dL Estim Creat Clear Calc ml/min Estimated GFR (59 - ) Glucose (65-110) mg/dL POC Capillary Glucose 197 H (65-105) mg/dl Lactic Acid 2.1 H (0.7-2.0) mmol/L Calcium (8.4-10.2) mg/dL Total Bilirubin (0.2-1.3) mg/dL AST (17-59) U/L ALT (6-50) U/L Alkaline Phosphatase (38-126) U/L Total Creatine Kinase (55-170) U/L Troponin I (0.000-0.034) ng/mL C-Reactive Protein (<1.0) mg/dL NT-Pro-B Natriuret Pep (19.9-100) pg/mL Total Protein (6.3-8.2) g/dL Albumin (3.5-5.1) g/dL Lipase (23-300) U/L TSH (0.465-4.680) uIU/mL Urine Color (Yellow) Urine Appearance (Clear) Urine pH (5.0-9.0) Ur Specific [place] (1.001-1.035) Urine Protein (Negative) mg/dL Urine Glucose (UA) (Negative) mg/dL Urine Ketones (Negative) mg/dL Ur Blood (Man) (Negative) Urine Nitrate (Negative) Urine Bilirubin (Negative) Urine Urobilinogen (<2.0) mg/dL Add Ur Microanalysis Leukocyte Esterase Rfl (Negative) ALEXEY/UL Urine RBC (0-2) /hpf Urine WBC (0-3) /hpf Ur Squamous Epith Cells (Few) /hpf Urine Bacteria (None) /hpf Nasal MRSA (PCR) (NOT DETECTE) Influenza A (RT-PCR) (Negative) Influenza B (RT-PCR) (Negative) RSV (RT-PCR) (Negative) SARS-CoV-2 RNA (RT-PCR) (Negative) ABG Data ABG results: 12/31/24 08:51 Puncture Site Right radial ABG pH 7.460 H ABG pCO2 27.1 L ABG pO2 74.8 L ABG PO2/FiO2 Ratio 1.70 ABG HCO3 18.8 L ABG O2 Saturation 95.9 ABG O2 Content 16.6 ABG Base Excess -3.6 A-a Gradient 208.0 Oxyhemoglobin 93.5 Total Hemoglobin 12.6 O2 Delivery Device Nasal cannula O2 Liters/Min 6.0 FiO2 44 Imaging Data Attestation: I personally reviewed and interpreted this imaging study as follows: My impression: Mediastinal widening and heart appears predominantly left sided, possibly rotational component Radiologist's impression: Impression: Early right lower lobe pneumonia IMPRESSION: 1. No acute intracranial process. 2. Large likely arachnoid cyst overlying the anterior left frontal and temporal lobes resulting in significant but stable mass effect with 1.4 cm right to left midline shift without significant change since prior study. 3. Unchanged left frontal ventricular drainage catheter which extends across the arachnoid cyst, the anterior horn of the left lateral ventricle with distal tip positioned along the lateral wall of the right lateral ventricle. Ventricles are unchanged since the prior study. 4. Unchanged region of encephalomalacia in the right basal ganglia, frontal lobe and insula consistent with sequela of chronic infarct. IMPRESSION: 1. Pneumonia, most advanced the right lower lobe with additional smaller regions in the dependent right middle and upper lobes. 2. Prominent wall thickening of the decompressed bladder with mild surrounding stranding concerning for cystitis which could be acute or chronic. Correlate with urinalysis. 3. Likely sludge versus gallstones within the dependent aspect of the otherwise normal-appearing gallbladder. 4. Small amount of ascites in the deep pelvis along side the tip of a ventriculoperitoneal shunt catheter. ECG Data EKG #1: Attestation: I personally reviewed and interpreted this ECG as follows: ECG completion date: 12/31/24 ECG completion time: 07:21 Interpretation: Sinus tachycardia at a rate of 101 beats per minute. MT interval 142. QRS 73. QT/QTC 332/431. Good R-wave progression across the precordial leads. No T-wave inversions. Normal axis. Critical Care Time Critical Care Time Critical Care Time: Yes Total Critical Care Time: 55 Discharge Plan Discharge Clinical Impression: Sepsis, Acute hypernatremia, Hyperglycemia due to diabetes mellitus, Acute renal failure, CRP elevated, Leukocytosis, Anemia, Acidosis, lactic, Elevated CPK, UTI (urinary tract infection) due to urinary indwelling Schuster catheter, Arachnoid cyst, Encephalomalacia, Pneumonia involving right lung, Cystitis, Dependence on supplemental oxygen, Acute respiratory failure, Septic shock Patient Disposition: Still a Patient Condition: Guarded Prognosis
--- OUTSIDE RECORDS SUMMARY | 2024-12-31 07:38 | XMS_ITS | Encounter Summary ---
Author Organization [facility] Address [address] [place] [address] Care Team Providers Care Manager Summer Name Role Phone Julian Verde MD Primary Care Provider Encounter Details Date Type Department Care Team (Latest Contact Info) Description 02/21/2018 Abstract [facility] , Moses Schwartz MD [...] on filedocumented in this encounter Care Teams Manager Summer Relationship Specialty Start Date End Date Julian Verde MD [address] [place] [address] PCP - General 06/21/16 documented as of this encounter
--- OUTSIDE RECORDS SUMMARY | 2024-12-31 07:38 | XMS_ITS | Clinical Summary ---
Author Organization [facility] Address [address] [place] [address] Care Team Providers Care Pharmacy Assistant Name Role Phone Julian Verde MD Primary Care Provider [phone] Allergies No known active allergies Medications acetaminophen [...] 6x/day x7-10 days 3.5 g 12/31/2017 Active Encounters Date Type Department Care Team Description 12/07/2024 Telephone [facility] Care Management [address] [place] [address] Missy Carrion, stone setter (Swing bed referral to [facility] from [facility]/) from Last 3 Months Family History Medical History Relation Comments Diabetes [...] 3:11 PM CDT Height 177.8 cm (5' 10) 12/31/2017 3:11 PM CDT Body Mass Index 24.39 12/31/2017 3:11 PM CDT Plan of Treatment Health Maintenance Due Date Last Done Comments Hepatitis C 1964 Zoster Vaccines (1 of 2) 1996 Annual Medicare Wellness Visit 2011 RSV Immunization or 60+ Years (1 - 1-dose 75+ series) 2021 COVID-19 Vaccine ( - season) 2024 02/19/2021, 07/18/2020, 06/20/2020 DTaP, Tdap and Td Vaccines (5 - Td or Tdap) 05/05/2033 05/05/2023, 05/05/2023, 05/05/2023, Additional history exists Colorectal Cancer Screening Colonoscopy (10 Years) Discontinued Pneumococcal Vaccine: 50+ Years Completed 03/04/2022, 03/30/2017 Meningococcal B Vaccine Aged Out No l onger eligible based on patient's age to complete this topic Meningococcal Vaccine Aged Out No maria c blossom eligible based on patient's age to complete this topic RSV Immunizations Under 20 Months Aged Out No longer eligible based on patient's age to complete this topic Procedures Procedure Name Priority Date/Time Associated Diagnosis Comments COLONOSCOPY Routine 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 from Last 3 Months or Most Recently Relevant to Health Maintenance Results * Colonoscopy ( 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) Narrative [facility] TO EPIC CONVERSION - 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 Documented hx of procedure Procedure Note Moses Mcintosh MD - 02/19/2018 Documented hx of procedure us Generic Conversion Md MCINTOSH GI PROCEDURE ORDERABLES Final Result [facility] TO EPIC CONVERSION from Last 3 Months or Most Recently Relevant to Health Maintenance Insurance MEDICARE [facility] Care Teams Pharmacy Assistant Relationship Specialty Start Date End Date Julian Verde MD [address] [place] [address] PCP - General 06/21/16
--- OUTSIDE RECORDS SUMMARY | 2024-12-31 07:38 | XMS_ITS | Encounter Summary ---
Author Organization [facility] Address [address] [place] [address] Care Team Providers Care Art Critic Name Role Phone Kimberly Navarrete MD Primary Care Provider Encounter Details Date Type Department Care Team (Late st Contact Info) Description 09/16/2017 Telephone [facility] General Internal Medicine [address] [facility] [address] [place] [address] Kimberly Navarrete MD [address] [facility] [address] [place], [place] [id number] Social History Tobacco Use Types Packs/Day Years Used Date Smoking Tobacco: Never Smokeless Tobacco: Never Alcohol Use Standard Drinks/Week Comments No 0 (1 standard drink = 0.6 oz pur e alcohol) Sex and Gender Information Value Date Recorded Sex Assigned at Male 03/04/2022 10:00 AM 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
--- OUTSIDE RECORDS SUMMARY | 2024-12-31 07:39 | XMS_ITS | Encounter Summary ---
Author Organization [facility] Address [address] [place] [address] Phone Care Team Providers Care Band Sawing Machine Operator Name Role Phone Julian Verde MD Primary Care Provider [phone] Rachele Daley OT Unavailable [phone] Ruthie Armas Unavailable [phone] Kimberly Navarrete MD Primary Care Provider Rachele Daley OT Unavailable [phone] Ruthie Armas Unavailable [phone] Ruthie Calderon NP Primary Care Provider Liam FONTAINE MD, Robert Clayton Unavailable Sadie Puri NP Primary Care Provider [phone] Yamilka Matos MD Unavailable [phone] Gloria Canales WIRE INSULATOR Unavailable [phone] Scarlet Cardenas MD Unavailable [phone] Encounter Details Date Type Department Care Team (Latest Contact Info) Description 04/02/2017 Orders Only [facility] CONVERSION Scanning, Provider Social History Tobacco Use Types Packs/Day Years Used Date Smoking Tobacco: Former Sex and Gender Information Value Date Recorded Sex Assigned at Not on file Legal Sex Male 7:29 AM SCRAP IRON CUTTER Gender Identity Male 09/01/2020 11:55 AM CDT Sexual Orientation Straight 09/01/2020 11 :55 AM CDT documented as of this encounter Plan of Treatment Not on file documented as of this encounter Procedures Procedure Name Priority Date/Time Associated Diagnosis Comments VASCULAR LABORATORY REPORT 04/02/2017 11:20 AM SCRAP IRON CUTTER documented in this encounter Results * VASCULAR LABORATORY REPORT (04/02/2017 11:20 AM SCRAP IRON CUTTER) Anatomical Region Laterality Modality Ultrasound us Provider Scanning CV VASCULAR PROCEDURES Final R esult documented in this encounter Visit Diagnoses Not on filedocumented in this encounter Additional Health Concerns Infection Onset Date Last Indicated Resolved Time COVID: Suspected 08/16/2023 08/16/2023 08/16/2023 8:55 PM CDT COVID: Suspected 12/03/2024 12/03/2024 12/03/2024 4:52 PM CDT documented as of this encounter Care Teams Band Sawing Machine Operator Relationship Specialty Start Date End Date Julian Verde MD PCP - General 04/01/17 10/25/18 Kimberly Navarrete MD PCP - General Internal Medicine 10/26/18 02/23/21 Ruthie Calderon NP PCP - General Nurse Practitioner 02/24/21 06/07/24 Sadie Puri NP [address] [address] PCP - General Internal Medicine 11/30/24 Rachele Daley, OT Occupational Therapist Occupational Therapy 10/24/18 1 Ruthie Armas, VETERINARY TECHNICIAN INSTRUCTOR Speech Language Pathologist Speech Therapy 10/26/18 01/15/19 Rachele Daley, OT Occupational Therapist Occupational Therapy 05/19/20 1 05/15/20 Ruthie Armas, DUDLEY Speech Language Pathologist Speech Therapy 05/29/20 02/12/21 Yaw Wheeler III, MD [address] [place] [address] Referring Physician Urology 02/17/22 11/29/24 Yamilka Matos MD [address] [facility] 130 [place] [address] Consulting Physician Nephrology 11/30/24 Gloria Canales NP [address] [place] [address] Nurse Practitioner Neurosurgery 11/30/24 Scarlet Cardenas MD [facility]1 [facility] 11C [facility] [address] Consulting Physician Urology 11/30/24 documented as of this encounter
--- OUTSIDE RECORDS SUMMARY | 2024-12-31 07:39 | XMS_ITS | Encounter Summary ---
Author Organization [facility] Address [address] [place] [address] Phone Care Team Providers Care Room Service Food Service Attendant Name Role Phone Ruthie Calderon QUOTER Primary Care Provider Liam FONTAINE MD, Robert Clayton Unavailable Sadie Puri QUOTER Primary Care Provider [phone] Yamilka Matos MD Unavailable [phone] Gloria Canales NP Unavailable [phone] Scarlet Cardenas MD Unavailable [phone] Encounter Details Date Type Department Care [...] on file Legal Sex Male 7:29 AM CABLE INSPECTOR Gender Identity Male 09/01/2020 11:55 AM CDT [...] documented as of this encounter Care Teams Room Service Food Service Attendant Relationship Specialty Start Date End Date Ruthie Calderon NP PCP - General Nurse Practitioner 02/24/21 06/07/24 Sadie Puri NP [address] [place] [address] PCP - General Internal Medicine 11/30/24 [place], [place] [address] [address] Referring Physician Urology 02/17/22 11/29/24 Yamilka Matos MD [address] [place] [address] Consulting Physician Nephrology 11/30/24 Gloria Canales QUOTER [address] [place] [address] Nurse Practitioner Neurosurgery 11/30/24 Scarlet Cardenas MD [address] SURG UROLOGY [place], [place] [address] Consulting Physician Urology 11/30/24 documented as of this encounter
--- OUTSIDE RECORDS SUMMARY | 2024-12-31 07:39 | XMS_ITS | Encounter Summary ---
Author Organization [facility] Address [address] [place] [address] Care Team Providers Care Crime Lab Technician Name Role Phone Sadie Puri NP Primary Care Provider [phone] Yamilka Matos MD Unavailable [phone] Gloria Canales NP Unavailable [phone] Scarlet Cardenas MD Unavailable [phone] Encounter Details Date Type Department Care Team (Latest Contact Info) Description 11/30/2024 Results Follow-Up [facility] Primary Care at [address] [address] Sadie Puri NP [address] [place] [address] [address] [place] [address] Comprehensive metabolic panel, Lipid panel, Hemoglobin A1c, Additional followed-up results: 7 Social History Tobacco Use Types Packs/Day Years Used Date Smoking Tobacco: Former Pipe 1979 Passive Smoke Exposure: Past Smokeless Tobacco: Never Alcohol Use Standard Drinks/Week Comments Yes 0 (1 standard drink = 0.6 oz pur e alcohol) Occasionally [facility] Utilities Answer Date Recorded In the past 12 months has [employer] electric, gas, oil, or water company threatened [...] often do you attend chur ch or denominational services? 1 to 4 times per year 09/04/2023 Do you belong to any clubs o r organizations such as bahai groups, unions, fraternal or athletic groups, or [...] place to sleep or slept in a mcfp (including now)? Patient unable to answer 09/01/2023 [...] were you homeless or living in a mcfp (including now)? Patient unable to answer 09/05/2023 Personal Safety Answer Date Recorded Have you ever been in or are you currently in a harmful physical or emotional relationship or is someone making you feel afraid or unsafe? Patient unable to answer 12/04/2024 Sex and Gender Information Value Date Recorded Sex Assigned at Not on file Legal Sex Male 7:29 AM FLOOR COVERER APPRENTICE Gender Identity Male 09/01/2020 11:55 AM CDT Sexual Orientation Straight 09/01/2020 11 :55 AM CDT documented as of this encounter Plan of Treatment Not on file documented as of this encounter Visit Diagnoses Not on filedocumented in this encounter Additional Health Concerns Infection Onset Date Last Indicated Resolved Time COVID: Suspected 12/03/2024 12/03/2024 12/03/2024 4:52 PM CDT documented as of this encounter Care Teams Crime Lab Technician Relationship Specialty Start Date End Date Sadie Puri NP [address] [place] [address] PCP - General Internal Medicine 11/30/24 Yamilka Matos MD [address] [place] [address] Consulting Physician Nephrology 11/30/24 Gloria Canales NP [address] [place] [address] Nurse Practitioner Neurosurgery 11/30/24 Scarlet Cardenas MD [address] [place] [address] [place] [address] Consulting Physician Urology 11/30/24 documented as of this encounter
--- OUTSIDE RECORDS SUMMARY | 2024-12-31 07:39 | XMS_ITS | Encounter Summary ---
Author Organization [facility] Address [address] [place] [address] Phone Care Team Providers Care Copy Center Operator Name Role Phone Kimberly Navarrete MD Primary Care Provider Rachele Daley OT Unavailable [phone] Ruthie Armas Unavailable [phone] Ruthie Calderon COLLAR BAND CREASER Primary Care Provider Liam FONTAINE MD, Robert Clayton Unavailable Sadie Puri NP Primary Care Provider [phone] Yamilka Matos MD Unavailable [phone] Gloria Canales COLLAR BAND CREASER Unavailable [phone] Scarlet Cardenas MD Unavailable [phone] Encounter Details Date Type Department Care Team (Late st Contact Info) Description 02/06/2021 Telephone [facility] Medicine Orthopaedic Surgery [address] [facility] 6th [place] [address] [place] [address] Yahaira Hdez MD [address] [facility] [address] [place] [address] Social History Tobacco Use Types Packs/Day Years [...] on file Legal Sex Male 7:29 AM INFORMATICS DEVELOPER Gender Identity Male 09/01/2020 11:55 AM CDT [...] documented as of this encounter Care Teams Copy Center Operator Relationship Specialty Start Date End Date Kimberly Navarrete MD PCP - General Internal Medicine 10/26/18 02/23/21 Ruthie Calderon, JUNE PCP - General Nurse Practitioner 02/24/21 06/07/24 Sadie Puri, JUNE [address] [address] PCP - General Internal Medicine 11/30/24 Rachele Daley OT Occupational Therapist Occupational Therapy 05/19/20 1 05/15/20 Ruthie Armas SLP Speech Language Pathologist Speech Therapy 05/29/20 02/12/21 Yaw Wheeler III, MD [address] [place] [address] Referring Physician Urology 02/17/22 11/29/24 Yamilka Matos MD [facility] [address] [place] [address] Consulting Physician Nephrology 11/30/[address] [facility] S [facility] [address] [place] [address] Nurse Practitioner Neurosurgery 11/30/24 Scarlet Cardenas MD [facility]1 [address] [place] [address] Consulting Physician Urology 11/30/24 documented as of this encounter
--- OUTSIDE RECORDS SUMMARY | 2024-12-31 07:39 | XMS_ITS | Encounter Summary ---
Author Organization [facility] Address [address] [place] [address] Care Team Providers Care Composite Bond Worker Name Role Phone Sadie Puri NP Primary Care Provider [phone] Yamilka Matos MD Unavailable [phone] Gloria Canales NP Unavailable [phone] Scarlet Cardenas MD Unavailable [phone] Reason for Visit * Reason Onset Date Comments Medical Question/Miscellaneous 12/03/2024 Encounter Details Date Type Department Care Team (Late st Contact Info) Description 12/03/2024 Telephone [facility] Primary Care at [address] [address] Sadie Puri NP [address] [place] [address] [address] [place] [address] Medical Question/Miscellaneous Social History Tobacco Use Types Packs/Day Years Used Date Smoking Tobacco: Former Pipe 1979 Passive Smoke Exposure: Past Smokeless Tobacco: Never Alcohol Use Standard Drinks/Week Comments Yes 0 (1 standard drink = 0.6 oz pur e alcohol) Occasionally [facility] Utilities Answer Date Recorded In the past 12 months has [employer], gas, oil, or water [employer] threatened to shut off services in your [...] often do you attend chur ch or hinduism services? 1 to 4 times per year 09/04/2023 Do you belong to any clubs o r organizations such as christian groups, unions, fraternal or athletic groups, or [...] any time in the past 12 m [facility], were you homeless or [...] on file Legal Sex Male 7:29 AM CASEWORK MANAGER Gender Identity Male 09/01/2020 11:55 AM CDT Sexual Orientation Straight 09/01/2020 11 :55 AM CDT documented as of this encounter Miscellaneous Notes * Telephone Encounter - Darcy Guido - 12/03/2024 8:54 AM CDT Medical Question/Miscellaneous Caller???s Concern: Lilia with [employer] called to give FYI message to PCP that [facility]. Does message need to be routed? Yes-FYI Only documented in this encounter Plan of Treatment Not on file documented as of this encounter Visit Diagnoses Not on filedocumented in this encounter Additional Health Concerns Infection Onset Date Last Indicated Resolved Time COVID: Suspected 12/03/2024 12/03/2024 12/03/2024 4:52 PM CDT documented as of this encounter Care Teams Composite Bond Worker Relationship Specialty Start Date End Date Sadie Puri NP [address] [place] [address] PCP - General Internal Medicine 11/30/24 Yamilka Matos MD [address] [place] [address] Consulting Physician Nephrology 11/30/24 Gloria Canales NP [address] [place] [address] Nurse Practitioner Neurosurgery 11/30/24 Scarlet Cardenas MD [address] [place] [address] [address] [place] [address] Consulting Physician Urology 11/30/24 documented as of this encounter
--- OUTSIDE RECORDS SUMMARY | 2024-12-31 07:39 | XMS_ITS | Clinical Summary ---
Author Organization [facility] Address [address] [place] [address] Care Team Providers Care Temperature Regulator Pyrometer Name Role Phone Kimberly Navarrete MD Primary Care Provider Source Comments [facility],non-owned Affiliates and Associated Physician Practices is amultiple site organization consisting of ambulatory clinics and hospital sitesin [place], [place], [place] and [place]. This disclosure is being madepursuant to the Care Everywhere program and may not contain all information available regarding this patient. Last updated 18.[facility] Allergies Active Allergy Reactions Criticality Noted Date [...] Disorder 30 tablet 4 Active nystatin (Mycostatin) 722631 UNIT/GM powderIndication s:Cutaneous Candidiasis Apply to affected [...] left non-dominant side 04/24/2017 Hyperlipidemia, unspecified 04/24/2017 snf (current) use of antithrombotics/antip latelets 04/24/2017 snf (current) use of aspirin 04/24/2017 Pneumonia due [...] and heating? Not hard at all 11/10/2023 [facility] - Occupational Stress [...] place to sleep or slept in a custodial (including now)? No 11/10/2023 Sex and Gender Information Value Date Recorded Sex Assigned at Male 03/04/2022 10:00 AM STYLIST ASSISTANT Legal Sex Male 5:48 PM STYLIST ASSISTANT Gender Identity Not on file Sexual Orientation [...] DIABETES RETINOPATHY SCREENING 02/24/2023 02/24/2021, 10/11/2019, 08/03/2018 DEPRESSION SCREENING 04/18/2024 DIABETES - URINE PROTEIN SCREENING 04/18/2024 01/26/2023, 06/27/2017 DIABETES-HGB A1C 05/13/2024 11/11/2023, 08/2023, 09/30/2022, Additional history exists DIABETES-SERUM CREATININE 11/27/20242023, 11/20/2023, 11/12/2023, Additional history exists COVID-19 VACCINE ( season) 2024 02/05/2022, 02/05/2022, 02/19/2021, Additional history exists INFLUENZA VACCINE (#1) 2024 [...] - 105 mg/dL 11/28/2023 9:34 AM CDT [facility] Sodium 139 136 - 145 mmol/L 11/28/2023 9:34 AM CDT [facility] Potassium 4.2 3.5 - 5.1 mmol/L 11/28/2023 9:34 AM CDT [facility] Chloride 103 98 - 107 mmol/L 11/28/2023 9:34 AM CDT [facility] CO2 28 22 - 29 mmol/L 11/28/2023 9:34 AM CDT [facility] Calcium 9.1 8.4 - 10.4 mg/dL 11/28/2023 9:34 AM CDT [facility] Anion Gap 8 6 - 16 mmol/L 11/28/2023 9:34 AM CDT [facility] BUN 23 7 - 26 mg/dL 11/28/2023 9:34 AM CDT [facility] Creatinine 1.03 0.72 - 1.25 mg/dL 11/28/2023 9:34 AM CDT [facility] eGFR by CKD-EPI 75(L) >=90 mL/min/1.7 3 m2 11/28/2023 9:34 AM CDT [facility] Blood BLOOD SPECIMEN / Unknown Venipuncture / Unknown 11/28/2023 9:01 AM CDT 11/28/2023 9:03 AM CDT Sue Clemens MD LAB - CHEMISTRY ORDERABLES Katalina perales Result [facility] [address] [place] [address] * (ABNORMAL) HEMOGLOBIN A1C (11/11/2023 7:13 AM CDT) Hemoglobin A1c 7.6(H) <5.7 % 11/11/2023 7:41 AM CDT [facility] Estimated Average Glucose 171 mg/dL 11/11/2023 7:41 AM CDT [facility] Blood BLOOD SPECIMEN / Unknown Venipuncture / Unknown 11/11/2023 7:13 AM CDT 11/11/2023 7:25 AM CDT Narrative [facility] - 11/11/2023 7:41 AM CDT HbA1c [...] LAB - CHEMISTRY ORDERABLES Katalina l Result [facility] [address] [place] [address] * EYE EXAM (02/24/2021) Anatomical Region Laterality Modality Other 02/24/2021 Narrative 02/24/2021 Ordered by an unspecified provider. us Scanned Document SCANNING ONLY Final Result * MICROALB/CREAT RATIO URINE RANDOM PANEL (06/27/2017 1:02 PM CDT) Albumin Random Urine 16.0 Not Established mcg/mL [facility] Creatinine Urine 297 Not Established mg/dL [facility] Comment:Result obtained by [place]. Urine Albumin/Creati nine Ratio 5 <30 mg/g [facility] Urine specimen (specimen) URINE / Unknown 06/27/2017 1:02 PM CDT 06/27/2017 1:35 PM CDT us Kimberly Navarrete MD LAB - URINE CHEMISTRY ORDERABLES Final Result Performing Organization Address [facility]/ZIP Co de Phone Number [address] [phone] * HEPATITIS C AB SCREEN RFLX PCR QUANT (06/27/2017 12:07 PM CDT) Hepatitis C Antibody Non-react dennys Non-reac tive [facility] Comment: Hepatitis C Antibody screen indicates [...] LAB - CHEMISTRY ORDERA [place] [address], [facility] [phone] from Last 3 Months or Most Recently Relevant to Health Maintenance Insurance MEDICARE [facility] MEDICARE ANTHE[facility] Advance Directives Documents on File Type Date Recorded Patient House Steward/Stewardess Expl anation Adv Directive/Living Will/POA 12/21/2023 5:34 PM * Full Code (Latest Code Status on File) Date Activated Date Inactivated Comments 11/10/2023 11:35 AM 12/20/2023 1:19 PM * Full Code Date Activated Date Inactivated Comments 01/13/2019 4:48 AM 01/13/2019 2:31 PM Care Teams Temperature Regulator Pyrometer Relationship Specialty Start Date End Date Kimberly Navarrete MD PCP - General 07/17/17
--- OUTSIDE RECORDS SUMMARY | 2024-12-31 07:39 | XMS_ITS | Encounter Summary ---
Author Organization [facility] Address [address] [facility] [place] [address] Care Team Providers Care Door Person Name Role Phone Kimberly Navarrete MD Primary Care Provider Encounter Details Date Type Department Care Team (Late st Contact Info) Description 05/02/2019 Lab Requisition [facility] [address] [facility], [place] [address] Chrissie Medina, [address] [facility] 3 [place] [address] Social History Tobacco Use Types Packs/Day Years Used Date Smoking Tobacco: Former Pipe Smokeless Tobacco: Never Comments:quit 1979 Alcohol Use Standard Drinks/Week Comments No 0 (1 standard drink = 0.6 oz pur e alcohol) Sex and Gender Information Value Date Recorded Sex Assigned at Male 03/04/2022 10:00 AM TUBE MACHINE OPERATOR HELPER Legal Sex Male 5:48 PM TUBE MACHINE OPERATOR HELPER Gender Identity Not on file Sexual Orientation [...] Comments DERMATOPATHOLOGY Routine 05/01/2019 12:0 0 AM TUBE MACHINE OPERATOR HELPER documented in this encounter Results * DERMATOPATHOLOGY (05/01/2019 12:00 AM TUBE MACHINE OPERATOR HELPER) Case Report Dermatopathology Report Case: [id number] Authorizing Provider: Chrissie Medina DO Collected: 05/01/2019 12:00 AM Ordering Location: [facility] Received: 05/02/2019 01:28 PM Pathologist: Elgin Sam MD Specimen: Skin, right back 0 7:25 PM TUBE MACHINE OPERATOR HELPER DERMATOPATHOLOGY LABORATORY Final Diagnosis Specimen A. 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 0 7:25 PM TUBE MACHINE OPERATOR HELPER DERMATOPATHOLOGY LABORATORY Gross Description Specimen A: Received is one formalin filled container labeled with the patient's name and designated right back. The specimen consists of a shave measuring [id number]. Jar 0. 0 7:25 PM [facility] DERMATOPATHOLOGY LABORATORY Microscopic Description Specimen A. SKIN, [...] a perifollicular lymphohistiocytic infiltrate. 0 7:25 PM [facility] DERMATOPATHOLOGY LABORATORY Disclaimer An external and internal positive and negative controls are appropriate for the histochemical, immunohistochemical and immunofluorescence stain(s) in this case (if any), except where stated explicitly. The performance characteristics of the stain(s) cited in this report were developed and its performance characteristic determined by the Dermatopathology Laboratory at [facility], directed by Dr. Sherry Sam. These tests need not be, and therefore are not, approved by the [place] Food and Drug Administration. The tests are used for clinical purposes. Billing Codes Specimen Charges Stain Charges 68019 1 0 7:25 PM TUBE MACHINE OPERATOR HELPER DERMATOPATHOLOGY LABORATORY Embedded Images 0 7:25 PM [facility] DERMATOPATHOLOGY LABORATORY Pathology/Cytolog y TISSUE SPECIMEN FROM SKIN / Unknown 05/01/2019 05/02/2019 1:28 PM TUBE MACHINE OPERATOR HELPER us Chrissie Medina DO LAB - PATHOLOGY/CYTOLOGY ORDERABLES Final Result Performing Organization Address City/State/[facility] Co de Phone Number DERMATOPATHOLOGY LABORATORY [facility] - Department of Dermatology [address] [place] [address], 5th Floor Lab [address] [place], [place] [address] [place] [address] documented in this encounter Visit Diagnoses Not on filedocumented in this encounter Additional Health Concerns Infection Onset Date Last Indicated Resolved Time COVID-19 Under Investigation 11/20/2023 11/20/2023 11/20/2023 10:51 PM CDT COVID-19 Confirmed 11/20/2023 11/20/2023 4:33 AM CDT documented as of this encounter Care Teams Door Person Relationship Specialty Start Date End Date Kimberly Navarrete MD PCP - General 07/17/17 documented as of this encounter
--- OUTSIDE RECORDS SUMMARY | 2024-12-31 07:39 | XMS_ITS | Encounter Summary ---
Author Organization [facility] Address [address] [place] [address] Phone Care Team Providers Care Card Placer Name Role Phone Ruthie Calderon GOLD TOOLER Primary Care Provider Liam FONTAINE MD, Robert Clayton Unavailable Sadie Puri GOLD TOOLER Primary Care Provider [phone] Yamilka Matos MD Unavailable [phone] Gloria Canales NP Unavailable Scarlet Cardenas MD Unavailable [phone] Encounter Details Date Type Department Care [...] on file Legal Sex Male 7:29 AM INVENTORY ASSOCIATE AND DRIVER Gender Identity Male 09/01/2020 11:55 AM CDT [...] documented as of this encounter Care Teams Card Placer Relationship Specialty Start Date End Date Ruthie Calderon NP PCP - General Nurse Practitioner 02/24/21 06/07/24 Sadie Puri NP [address] [place] [address] PCP - General Internal Medicine 11/30/24 [place] [address] [address] Referring Physician Urology 02/17/22 11/29/24 Yamilka Matos MD [address] [place] [address] Consulting Physician Nephrology 11/30/24 Gloria Canaels GOLD TOOLER [address] [place] [address] Nurse Practitioner Neurosurgery 11/30/24 Scarlet Cardenas MD [address] SURG UROLOGY [place], [place] [address] Consulting Physician Urology 11/30/24 documented as of this encounter
--- OUTSIDE RECORDS SUMMARY | 2024-12-31 07:39 | XMS_ITS | Encounter Summary ---
Author Organization [facility] Address [address] [facility] [place] [address] Care Team Providers Care Rough Rounder Name Role Phone Kimberly Navarrete MD Primary Care Provider Encounter Details Date Type Department Care Team (Late st Contact Info) Description 08/23/2022 Telephone [facility] SCHEDULING [address] [place] [address] Yaw Wheeler MD Social History Tobacco Use Types Packs/Day Years Used Date Smoking Tobacco: Former Pipe Smokeless Tobacco: Never Comments:quit 1980 Alcohol Use Standard Drinks/Week Comments Yes 0 (1 standard drink = 0.6 oz pur e alcohol) RARELY Sex and Gender Information Value Date Recorded Sex Assigned at Male 03/04/2022 10:00 AM MANAGEMENT TECHNICIAN Legal Sex Male 5:48 PM MANAGEMENT TECHNICIAN Gender Identity Not on file Sexual [...] Pt was bumped from 09/03 [facility]OM[facility] visit. [facility] does not reschedule for this appt type. [...] documented as of this encounter Care Teams Rough Rounder Relationship Specialty Start Date End Date Kimberly Navarrete MD PCP - General 07/17/17 documented as of this encounter
--- OUTSIDE RECORDS SUMMARY | 2024-12-31 07:41 | XMS_ITS | Encounter Summary ---
Author Organization [facility] Address [address] [facility] [place] [address] Care Team Providers Care Shellfish Farming Supervisor Name Role Phone Kimberly Navarrete MD Primary Care Provider Encounter Details Date Type Department Care Team (Late st Contact Info) Description 11/01/2018 Lab Requisition [facility] [address] [facility], [place] [address] Chrissie Medina, DO [address] [facility] [address] [place] [address] Social History Tobacco Use Types Packs/Day Years Used Date Smoking Tobacco: Former Pipe Smokeless Tobacco: Never Comments:quit 1979 Alcohol Use Standard Drinks/Week Comments No 0 (1 standard drink = 0.6 oz pur e alcohol) Sex and Gender Information Value Date Recorded Sex Assigned at Male 03/04/2022 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 Jar 0. 4:27 PM CDT DERMATOPATHOLOGY LABORATORY [...] characteristic determined by the Dermatopathology Laboratory at [facility], directed by Dr. Sherry Sam. These tests need not be, and therefore are not, approved by the [place] Food and Drug Administration. The tests are used for clinical purposes. Billing Codes Specimen Charges Stain Charges 28124 1 4:27 PM CDT DERMATOPATHOLOGY LABORATORY Embedded Images 4:27 PM CDT DERMATOPATHOLOGY LABORATORY Pathology/Cytolog y TISSUE SPECIMEN FROM SKIN / Unknown 10/31/2018 11/01/2018 12:32 PM CDT us Chrissie Medina DO LAB - PATHOLOGY/CYTOLOGY ORDERABLES Final Result DERMATOPATHOLOGY LABORATORY [facility] - Department of Dermatology [address] [facility], 5th Floor Lab [address] [phone] documented in this encounter Visit Diagnoses Not on filedocumented in this encounter Additional Health Concerns Infection Onset Date Last Indicated Resolved Time COVID-19 Under Investigation 11/20/2023 11/20/2023 11/20/2023 10:51 PM CDT COVID-19 Confirmed 11/20/2023 11/20/2023 4:33 AM CDT documented as of this encounter Care Teams Shellfish Farming Supervisor Relationship Specialty Start Date End Date Kimberly Navarrete MD PCP - General 07/17/17 documented as of this encounter
--- OUTSIDE RECORDS SUMMARY | 2024-12-31 07:41 | XMS_ITS | Encounter Summary ---
Author Organization [facility] Address [address] [place] [address] Phone Care Team Providers Care Early Childhood Assistant Name Role Phone Kimberly Navarrete MD Primary Care Provider Rachele Daley OT Unavailable [phone] Ruthie Amras Unavailable [phone] Ruthie Calderon NUTRITION AND DIETETICS INSTRUCTOR Primary Care Provider Liam FONTAINE MD, Robert Clayton Unavailable Sadie Puri NP Primary Care Provider Yamilka Matos MD Unavailable [phone] Gloria Canales NUTRITION AND DIETETICS INSTRUCTOR Unavailable [phone] Scarlet Cardenas MD Unavailable [phone] Encounter Details Date Type Department Care [...] on file 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 Gender Identity Male 09/01/2020 11:55 AM CDT [...] documented as of this encounter Care Teams Early Childhood Assistant Relationship Specialty Start Date End Date Kimberly Navarrete MD PCP - General Internal Medicine 10/26/18 02/23/21 Ruthie Calderon NP PCP - General Nurse Practitioner 02/24/21 06/07/24 Sadie Puri NP [address] [address] PCP - General Internal Medicine 11/30/24 Rachele Daley OT Occupational Therapist Occupational Therapy 05/19/20 1 05/15/20 Ruthie Armas, DUDLEY Speech Language Pathologist Speech Therapy 05/29/20 02/12/21 Yaw Wheeler III, MD [address] [place] [address] Referring Physician Urology 02/17/22 11/29/24 Yamilka Matos MD [address] [facility] [address] [place] [address] Consulting Physician Nephrology 11/30/24 Gloria Canales NP [address] [place] [address] Nurse Practitioner Neurosurgery 11/30/24 Scarlet Cardenas MD [address] [place] [address] Consulting Physician Urology 11/30/24 documented as of this encounter
--- OUTSIDE RECORDS SUMMARY | 2024-12-31 07:41 | XMS_ITS | Encounter Summary ---
Author Organization [facility] Address [address] [place] [address] Care Team Providers Care Energy Specialist Name Role Phone Kimberly Navarrete MD Primary Care Provider Encounter Details Date Type Department Care Team (Late st Contact Info) Description 10/10/2018 Lab Requisition [facility] [address] [facility] [place] [phone] Chrissie Medina, DO [address] [facility] [address] [place] [address] Social History Tobacco Use Types Packs/Day Years Used Date Smoking Tobacco: Former Pipe Smokeless Tobacco: Never Comments:quit 1979 Alcohol Use Standard Drinks/Week Comments No 0 (1 standard drink = 0.6 oz pur e alcohol) Sex and Gender Information Value Date Recorded Sex Assigned at Male 03/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 Jar 0. Specimen B: Received is one formalin filled container labeled with the patient's name and designated left helix. The specimen consists of a shave measuring [id number]. Jar 0. 11:53 AM CDT DERMATOPATHOLOGY LABORATORY [...] characteristic determined by the Dermatopathology Laboratory at [facility], directed by Dr. Sherry Sam. These tests need not be, and therefore are not, approved by the [place] Food and Drug Administration. The tests are used for clinical purposes. Billing Codes Specimen Charges Stain Charges 95489 96063 1 1 9 11:53 AM CDT DERMATOPATHOLOGY LABORATORY Embedded Images 9 11:53 AM CDT DERMATOPATHOLOGY LABORATORY Pathology/Cytology TISSUE SPECIMEN FROM SKIN / Unknown 10/09/2018 10/10/2018 12:27 PM CDT Miscellaneous samples (specimen) TISSUE SPECIMEN FROM SKIN / Unknown 10/09/2018 10/10/2018 12:27 PM CDT Chrissie Medina DO LAB - PATHOLOGY/CYTOLOGY ORDERABLES Final Result Performing Organization Address City/State/[facility] Co de Phone Number DERMATOPATHOLOGY LABORATORY [facility] - Department of Dermatology [address] [place] [address] 5th Floor Lab [address] [phone] documented in this encounter Visit Diagnoses Not on filedocumented in this encounter Additional Health Concerns Infection Onset Date Last Indicated Resolved Time COVID-19 Under Investigation 11/20/2023 11/20/2023 11/20/2023 10:51 PM CDT COVID-19 Confirmed 11/20/2023 11/20/2023 4:33 AM CDT documented as of this encounter Care Teams Energy Specialist Relationship Specialty Start Date End Date Kimberly Navarrete MD PCP - General 07/17/17 documented as of this encounter
--- OUTSIDE RECORDS SUMMARY | 2024-12-31 07:41 | XMS_ITS | Clinical Summary ---
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 Primary Care Provider [phone] Yamilka Matos MD Unavailable [phone] Gloria Canales NP Unavailable [phone] Scarlet Cardenas MD Unavailable [phone] Allergies Active Allergy Reactions Criticality Noted Date Comments Nitrofurantoin Nausea And Vomiting Medium 02/13/2018 Sulfamethoxazole-Trimethoprim Nausea And Vomiting Medium 07/14/2017 Medications aspirin 81 mg chewable tablet Administer per tube 1 tablet (81 mg total) daily for 70 doses 12/28/19 25 025 Active clopidogreL (PLAVIX) 75 mg tablet Administer per tube 1 tablet (75 mg total) daily 90 tablet 3 12/27/19 25 Active atorvastatin (LIPITOR) 80 mg tabletIndicati ons:Hyperlipid emia associated with type 2 diabetes mellitus (HCC) Administer per tube 1 tablet (80 mg total) nightly 12/27/19 25 Active valproate (DEPAKENE) syrup 250 mg/5 mL Administer per tube 10 mL (500 mg total) 2 (two) times a day 12/27/19 25 026 Active finasteride (PROSCAR) 5 mg tabletIndicati ons:benign prostatic hyperplasia with lower urinary tract sx Administer per tube 1 tablet (5 mg total) every morning 12/27/19 25 Active doxazosin (CARDURA) 1 mg tablet Administer per tube 1 tablet (1 mg total) nightly 12/27/19 25 026 Active guaiFENesin (ROBITUSSIN) syrup 100 mg/5 mL Administer per tube 20 mL (400 mg total) 3 times a day 12/27/19 25 Active insulin lispro (HumaLOG, ADMELOG) 100 unit/mL pen for injection Inject 1-5 units under the skin 3 (three) times a day with meals. Blood glucose mg/dL 150-199: 1 unit, 200-249: 2 units, 250-299: 3 units, 300-349: 4 units, 350 or greater: 5 units. Notify provider for blood glucose greater than 299 mg/dL. Refer to After Visit Summary for Sliding Scale Insulin Instructions. 12/27/19 25 Active insulin degludec (TRESIBA) 100 unit/mL (3 mL) pen for injectionIndic ations:Diabete s Mellitus Inject 0.05 mL (5 Units total) under the skin nightly 12/27/19 Active lisinopriL (PRINIVIL,ZEST RIL) 40 mg tablet Take 0.5 tablets (20 mg total) by mouth daily 12/27/19 25 Active multivitamin-m inerals-lutein tabletIndicati ons:Supplement Administer per tube 1 tablet daily after breakfast 12/27/19 25 Active famotidine (PEPCID) 20 mg tablet Administer per tube 1 tablet (20 mg total) 2 (two) times a day 12/27/19 25 Active polyethylene glycol (MIRALAX) 17 gram/dose bulk powderIndicati ons:constipati on Administer per tube 17 g daily 12/27/19 25 Active risperiDONE (RisperDAL) 0.25 mg tablet Administer per tube 1 tablet (0.25 mg total) 2 (two) times a day 12/27/19 25 025 Active senna-docusate (PERICOLACE) 8.6-50 mg Administer per tube 1 tablet 2 (two) times a day 12/27/19 25 Active multivitamin-m inerals-lutein tabletIndicati ons:Supplement Take 1 tablet by mouth daily after breakfast 025 Discontinued finasteride (PROSCAR) 5 mg tabletIndicati ons:benign prostatic hyperplasia with lower urinary tract sx Take 1 tablet (5 mg total) by mouth every morning 90 tablet 1 01/09/20 025 Discontinued risperiDONE (RisperDAL) 0.5 mg tablet 05/10/19 025 Discontinued(S top Taking at Discharge) sertraline (ZOLOFT) 50 mg tablet Take 1 tablet (50 mg total) by mouth daily 90 tablet 10/06/19 025 Discontinued(S top Taking at Discharge) tamsulosin (FLOMAX) 0.4 mg extended release capsuleIndicat ions:benign prostatic hyperplasia with lower urinary tract sx Take 1 capsule (0.4 mg total) by mouth every morning 30 capsule 10/10/19 025 Discontinued(S top Taking at Discharge) sertraline (ZOLOFT) 100 mg tablet Take 1.5 tablets (150 mg total) by mouth daily 025 Discontinued(S top Taking at Discharge) atorvastatin (LIPITOR) 80 mg tabletIndicati ons:Hyperlipid emia associated with type 2 diabetes mellitus (HCC) Take 1 tablet (80 mg total) by mouth nightly 90 tablet 3 12/01/19 025 Discontinued clopidogreL (PLAVIX) 75 mg tablet Take 1 tablet (75 mg total) by mouth daily 90 tablet 3 12/01/19 025 Discontinued lisinopriL (PRINIVIL,ZEST RIL) 40 mg tablet Take 1 tablet (40 mg total) by mouth daily 90 tablet 3 12/01/[address] (PROTONIX) 40 mg EC tablet Take 1 tablet (40 mg total) by mouth daily 90 tablet 3 12/01/19 025 Discontinued(S top Taking at Discharge) divalproex ER (DEPAKOTE ER) 500 mg 24 hr tablet Take 1 tablet (500 mg total) by mouth 2 (two) times a day 180 tablet 3 12/01/19 025 Discontinued(S top Taking at Discharge) amoxicillin-cl avulanate (AUGMENTIN) suspension 400-57 mg/5 mLIndications: Pneumonia, Aspiration Administer per tube 10.9375 mL (875 mg of amoxicillin total) 2 (two) times a day for 5 doses 12/27/19 25 025 Active Problems Problem Noted Date Diagnosed Date Palpitation 12/26/2024 Assessment & Plan (12/26/2024 1:39 PM CDT): Event monitor. Atelectasis 12/12/2024 Assessment & Plan (12/23/2024 12:30 PM CDT): Bilateral atelectasis due to prolonged immobility in setting of stroke - on 3L O2, - Has been having wet cough since few days, CXR shows hazy infiltrates but no pneumonia, remained afebrile vitals stable, received 1 dose of IV Lasix. PLAN - Oxygen per protocol, wean as able - Chest physiotherapy - bronchial hygiene Assessment & Plan (12/22/2024 12:02 PM CDT): Bilateral atelectasis due to prolonged immobility in setting of stroke - on 3L O2, - Has been having wet cough since few days, CXR shows hazy infiltrates but no pneumonia, remained afebrile vitals stable, received 1 dose of IV Lasix. PLAN - Oxygen per protocol, wean as able - Chest physiotherapy - bronchial hygiene Assessment & Plan (12/21/2024 6:36 PM CDT): Bilateral atelectasis due to prolonged immobility in setting of stroke - om 3L O2, Has been having wet cough since yesterday, CXR shows hazy infiltrates but no pneumonia, we will give low-dose IV Lasix 10 mg once and continue to monitor. PLAN - Chest physiotherapy - bronchial hygiene Assessment & Plan (12/20/2024 5:26 PM CDT): Bilateral atelectasis due to prolonged immobility in setting of stroke Intermittent oxygen requirement. PLAN - Repeat chest x-ray - Chest physiotherapy - bronchial hygiene Assessment & Plan (12/19/2024 5:56 PM CDT): Bilateral atelectasis due to prolonged immobility in setting of stroke Intermittent oxygen requirement Chest physiotherapy, bronchial hygiene Assessment & Plan (12/18/2024 5:01 PM CDT): Bilateral atelectasis due to prolonged immobility in setting of stroke Intermittent oxygen requirement Chest physiotherapy, bronchial hygiene Assessment & Plan (12/17/2024 2:04 PM CDT): Bilateral atelectasis due to prolonged immobility in setting of stroke Intermittent oxygen requirement Chest physiotherapy, bronchial hygiene Assessment & Plan (12/16/2024 2:11 PM CDT): Bilateral atelectasis due to prolonged immobility in setting of stroke Intermittent oxygen requirement Chest physiotherapy, bronchial hygiene Assessment & Plan (12/15/2024 2:37 PM CDT): Bilateral atelectasis due to prolonged immobility in setting of stroke Intermittent oxygen requirement Chest physiotherapy, bronchial hygiene Assessment & Plan (12/14/2024 3:53 PM CDT): Bilateral atelectasis due to prolonged immobility in setting of stroke Intermittent oxygen requirement Chest physiotherapy, bronchial hygiene Assessment & Plan (12/13/2024 3:12 PM CDT): Bilateral atelectasis due to prolonged immobility in setting of stroke Intermittent oxygen requirement Chest physiotherapy, bronchial hygiene Assessment & Plan (12/12/2024 3:57 PM CDT): Bilateral atelectasis due to prolonged immobility in setting of stroke Intermittent oxygen requirement Chest physiotherapy, bronchial hygiene Need for nutritional assessment 12/06/2024 Assessment & Plan (12/26/2024 1:39 PM CDT): Dysphagia in setting of stroke. DIRECTOR OF MATERIALS MANAGEMENT re-evaluation on 12/10 with evidence of aspiration and recommended PO for pleasure only, Pureed. Plan discussed with over the phone and she agreed for PEG tube. IR consulted for PEG tube 12/11. Plavix needs to be held for 5 days; so IR planning to do PEG on Monday 12/18 (may restart immediately following the procedure). In the interim NG tube was placed 12/12 for feeds. Patient pulled out his NG tube overnight 12/13. New NG tube was placed (with mittens on) and removed on 12/19. - Pt had loose stools 9/5 did not tolerate tube feeds, RD adjusted tube feeds, currently on 30 mL, no episodes of diarrhea so far. - Tolerating Glucerna well. Plan to cyclic tube feeds from tonight. - Continue DIRECTOR OF MATERIALS MANAGEMENT eval at facility. Assessment & Plan (12/25/2024 3:26 PM CDT): Dysphagia in setting of stroke. DIRECTOR OF MATERIALS MANAGEMENT re-evaluation on 12/10 with evidence of aspiration and recommended PO for pleasure only, Pureed. Plan discussed with over the phone and she agreed for PEG tube. IR consulted for PEG tube 12/11. Plavix needs to be held for 5 days; so IR planning to do PEG on Monday 12/18 (may restart immediately following the procedure). In the interim NG tube was placed 12/12 for feeds. Patient pulled out his NG tube overnight 12/13. New NG tube was placed (with mittens on) and removed on 12/19. - Pt had loose stools 9/5 did not tolerate tube feeds, RD adjusted tube feeds, currently on 30 mL, no episodes of diarrhea so far. PLAN - PEG tube placed by IR 12/18 - RD following for TFs, - Monitor electrolytes, continue maintenance IV fluids - PT/OT recommended LTC SNF; Assessment & Plan (12/24/2024 4:00 PM CDT): Dysphagia in setting of stroke. DIRECTOR OF MATERIALS MANAGEMENT re-evaluation on 12/10 with evidence of aspiration and recommended PO for pleasure only, Pureed. Plan discussed with over the phone and she agreed for PEG tube. IR consulted for PEG tube 12/11. Plavix needs to be held for 5 days; so IR planning to do PEG on Monday 12/18 (may restart immediately following the procedure). In the interim NG tube was placed 12/12 for feeds. Patient pulled out his NG tube overnight 12/13. New NG tube was placed (with mittens on) and removed on 12/19. - Pt had loose stools 9/5 did not tolerate tube feeds, RD adjusted tube feeds, currently on 30 mL, no episodes of diarrhea so far. PLAN - PEG tube placed by IR 12/18 - following for TFs, - Monitor electrolytes, continue maintenance IV fluids - PT/OT recommended LTC SNF; Assessment & Plan (12/23/2024 12:30 PM CDT): Dysphagia in setting of stroke. DIRECTOR OF MATERIALS MANAGEMENT re-evaluation on 12/10 with evidence of aspiration and recommended PO for pleasure only, Pureed. Plan discussed with over the phone and she agreed for PEG tube. IR consulted for PEG tube 12/11. Plavix needs to be held for 5 days; so IR planning to do PEG on Monday 12/18 (may restart immediately following the procedure). In the interim NG tube was placed 12/12 for feeds. Patient pulled out his NG tube overnight 12/13. New NG tube was placed (with mittens on) and removed on 12/19. - Pt had loose stools 9/5 did not tolerate tube feeds, RD adjusted tube feeds, currently on 30 mL, no episodes of diarrhea so far. PLAN - PEG tube placed by IR 12/18 - following for TFs, - Monitor electrolytes, continue maintenance IV fluids - PT/OT recommended LTC SNF; Assessment & Plan (12/22/2024 12:02 PM CDT): Dysphagia in setting of stroke. DIRECTOR OF MATERIALS MANAGEMENT re-evaluation on 12/10 with evidence of aspiration and recommended PO for pleasure only, Pureed. Plan discussed with over the phone and she agreed for PEG tube. IR consulted for PEG tube 12/11. Plavix needs to be held for 5 days; so IR planning to do PEG on Monday 12/18 (may restart immediately following the procedure). In the interim NG tube was placed 12/12 for feeds. Patient pulled out his NG tube overnight 12/13. New NG tube was placed (with mittens on) and removed on 12/19. - Pt had loose stools 9/5 did not tolerate tube feeds, RD adjusted tube feeds, currently on 30 mL, no episodes of diarrhea so far. PLAN - PEG tube placed by IR 12/18 - following for TFs, - Monitor electrolytes, continue maintenance IV fluids - PT/OT recommended LTC SNF; Assessment & Plan (12/21/2024 6:36 PM CDT): Dysphagia in setting of stroke. DIRECTOR OF MATERIALS MANAGEMENT re-evaluation on 12/10 with evidence of aspiration and recommended PO for pleasure only, Pureed. Plan discussed with over the phone and she agreed for PEG tube. IR consulted for PEG tube 12/11. Plavix needs to be held for 5 days; so IR planning to do PEG on Monday 12/18 (may restart immediately following the procedure). In the interim NG tube was placed 12/12 for feeds. Patient pulled out his NG tube overnight 12/13. New NG tube was placed (with mittens on) and removed on 12/19. - Pt Has been having loose stools since yesterday, where incontinent, did not tolerate tube feeds, we will discuss with dietary to go down on goal. PLAN - PEG tube placed by IR 12/18 following for TFs, - Monitor electrolytes, continue maintenance IV fluids - PT/OT recommended LTC SNF; Assessment & Plan (12/20/2024 5:26 PM CDT): Dysphagia in setting of stroke. DIRECTOR OF MATERIALS MANAGEMENT re-evaluation on 12/10 with evidence of aspiration and recommended PO for pleasure only, Pureed. Plan discussed with over the phone and she agreed for PEG tube. IR consulted for PEG tube 12/11. Plavix needs to be held for 5 days; so IR planning to do PEG on Monday 12/18 (may restart immediately following the procedure). In the interim NG tube was placed 12/12 for feeds. Patient pulled out his NG tube overnight 12/13. New NG tube was placed (with mittens on) and removed on 12/19. PLAN - PEG tube placed by IR 12/18 - following for TFs, TF Tolerated well, currently at goal - Monitor electrolytes, continue maintenance IV fluids - PT/OT recommended LTC SNF; Assessment & Plan (12/19/2024 5:56 PM CDT): Dysphagia in setting of stroke. DIRECTOR OF MATERIALS MANAGEMENT re-evaluation on 12/10 with evidence of aspiration and recommended PO for pleasure only, Pureed. Plan discussed with over the phone and she agreed for PEG tube. IR consulted for PEG tube 12/11. Plavix needs to be held for 5 days; so IR planning to do PEG on Monday 12/18 (may restart immediately following the procedure). In the interim NG tube was placed 12/12 for feeds. Patient pulled out his NG tube overnight 12/13. New NG tube was placed (with mittens on) and feeds were resumed. Patient kept NPO for PEG placement. PLAN - PEG tube placed by IR / - RD following for TFs, - Monitor electrolytes, continue maintenance IV fluids - PT/OT recommended LTC SNF; discharge likely Tuesday if TF goal rate achieved Assessment & Plan (12/18/2024 5:01 PM CDT): Dysphagia in setting of stroke. DIRECTOR OF MATERIALS MANAGEMENT re-evaluation on 12/10 with evidence of aspiration and recommended PO for pleasure only, Pureed. Plan discussed with over the phone and she agreed for PEG tube. IR consulted for PEG tube 12/11. Plavix needs to be held for 5 days; so IR planning to do PEG on Monday 12/18 (may restart immediately following the procedure). In the interim NG tube was placed 12/12 for feeds. Patient pulled out his NG tube overnight 12/13. New NG tube was placed (with mittens on) and feeds were resumed. Patient kept NPO for PEG placement. PLAN - PEG tube placed by IR 12/18 - RD following for TFs, likely start tube feeds tomorrow after clearance from radiology - Monitor electrolytes, continue maintenance IV fluids - PT/OT recommended LTC SNF; discharge likely Tuesday if TF goal rate achieved Assessment & Plan (12/17/2024 2:04 PM CDT): Dysphagia in setting of stroke. DIRECTOR OF MATERIALS MANAGEMENT re-evaluation on 12/10 with evidence of aspiration and recommended PO for pleasure only, Pureed. Plan discussed with over the phone and she agreed for PEG tube. IR consulted for PEG tube 12/11. Plavix needs to be held for 5 days; so IR planning to do PEG on Monday 12/18 (may restart immediately following the procedure). In the interim NG tube was placed 12/12 for feeds. Patient pulled out his NG tube overnight 12/13. New NG tube was placed (with mittens on) and feeds were resumed. Patient will be NPO midnight for PEG placement tomorrow by IR - RD following for TFs. Continue tube feeds for now. - Electrolyte replenishment to keep magnesium more than 2, phosphorus more than 3, potassium more than 4 - Maintenance IVF discontinued - PT/OT recommended LTC SNF; discharge likely Tuesday if TF goal rate achieved Assessment & Plan (12/16/2024 2:11 PM CDT): Dysphagia in setting of stroke. DIRECTOR OF MATERIALS MANAGEMENT re-evaluation on 12/10 with evidence of aspiration and recommended PO for pleasure only, Pureed. Plan discussed with over the phone and she agreed for PEG tube. IR consulted for PEG tube 12/11. Plavix needs to be held for 5 days; so IR planning to do PEG on Monday 12/18. In the interim NG tube was placed 12/12 for feeds. Patient pulled out his NG tube overnight 12/13. New NG tube was placed (with mittens on) and feeds were resumed. - RD following for TFs. Continue tube feeds for now. - Electrolyte replenishment to keep magnesium more than 2, phosphorus more than 3, potassium more than 4 - Maintenance IVF discontinued - PT/OT recommended LTC SNF; discharge likely Tuesday if TF goal rate achieved Assessment & Plan (12/15/2024 2:37 PM CDT): Dysphagia in setting of stroke. DIRECTOR OF MATERIALS MANAGEMENT re-evaluation on 12/10 with evidence of aspiration and recommended PO for pleasure only, Pureed. Plan discussed with over the phone and she agreed for PEG tube. IR consulted for PEG tube 12/11. Plavix needs to be held for 5 days; so IR planning to do PEG on Monday 12/18. In the interim NG tube was placed 12/12 for feeds. Patient pulled out his NG tube overnight 12/13. New NG tube was placed (with mittens on) and feeds were resumed. - RD following for TFs. Continue tube feeds. - Electrolyte replenishment to keep magnesium more than 2, phosphorus more than 3, potassium more than 4 - Maintenance IVF discontinued - PT/OT recommended LTC SNF. Assessment & Plan (12/14/2024 3:53 PM CDT): Dysphagia in setting of stroke. DIRECTOR OF MATERIALS MANAGEMENT re-evaluation on 12/10 with evidence of aspiration and recommended PO for pleasure only, Pureed. Plan discussed with over the phone and she agreed for PEG tube. IR consulted for PEG tube 12/11. Plavix needs to be held for 5 days; so IR planning to do PEG on Monday 12/18. In the interim NG tube was placed 12/12 for feeds. Patient pulled out his NG tube overnight 12/13. New NG tube was placed (with mittens on) and feeds were resumed. - RD following for TFs - Electrolyte replenishment to keep magnesium more than 2, phosphorus more than 3, potassium more than 4 - Maintenance IVF discontinued - PT/OT recommended LTC SNF. Assessment & Plan (12/13/2024 3:12 PM CDT): Dysphagia in setting of stroke. DIRECTOR OF MATERIALS MANAGEMENT re-evaluation on 12/10 with evidence of aspiration and recommended PO for pleasure only, Pureed. Discussed with over the phone and she agreed for PEG tube. IR consulted for PEG tube 12/11. Plavix needs to be held for 5 days; so IR planning to do PEG on Monday 12/18. In the interim NG tube was placed 12/12 for feeds. Patient pulled out his NG tube overnight 12/13. New NG tube was placed (with mittens on) and feeds were resumed. - RD following for TFs - Maintenance IVF discontinued - PT/OT recommended LTC SNF. Assessment & Plan (12/12/2024 3:57 PM CDT): Dysphagia in setting of stroke. DIRECTOR OF MATERIALS MANAGEMENT re-evaluation on 12/10 with evidence of aspiration and recommended PO for pleasure only, Pureed. Discussed with over the phone and she agreed for PEG tube. IR consulted for PEG tube 12/11. Plavix needs to be held for 5 days; so IR planning to do PEG on Monday 12/18. In the interim NG tube was placed today 12/12 for feeds. - RD following for TFs - Maintenance IVF discontinued - PT/OT recommended LTC SNF. Assessment & Plan (12/11/2024 3:46 PM CDT): Dysphagia in setting of stroke. DIRECTOR OF MATERIALS MANAGEMENT re-evaluation on 12/10 with evidence of aspiration and recommended PO for pleasure only, Pureed. Discussed with over the phone and she agreed for PEG tube. IR consulted for PEG tube 12/11. Plavix needs to be held for 5 days; so IR planning to do PEG on Sunday 12/17. Meanwhile plan to get Dobhoff in the interim. - RD following - Maintenance IVF - PT/OT recommended SNF. Assessment & Plan (12/10/2024 9:26 AM CDT): Will return to NPO except for purees with meds given coughing episodes with meals. DIRECTOR OF MATERIALS MANAGEMENT plans for re-evaluation on 12/10. - DIRECTOR OF MATERIALS MANAGEMENT following - plan for modified barium study on 12/10 - following - need to discuss nutritional goals with family. - D5LR IVF - CXR 12/08 without consolidations, reassuring against aspiration pna Assessment & Plan (12/09/2024 10:21 AM CDT): Will return to NPO except for purees with meds given coughing episodes with meals. DIRECTOR OF MATERIALS MANAGEMENT plans for re-evaluation on 12/10. - DIRECTOR OF MATERIALS MANAGEMENT following - plan for modified barium study on 12/10 - following - need to discuss nutritional goals with family. - D5LR IVF - CXR 12/08 without consolidations, reassuring against aspiration pna Assessment & Plan (12/08/2024 10:24 AM CDT): Transitioned from NPO to pureed diet at the moment. DIRECTOR OF MATERIALS MANAGEMENT plans for re-evaluation on 12/10. - DIRECTOR OF MATERIALS MANAGEMENT following - plan for modified barium study on 12/10 - following - need to discuss nutritional goals with family. - D5LR IVF Assessment & Plan (12/07/2024 9:55 AM CDT): Transitioned from NPO to pureed diet at the moment. DIRECTOR OF MATERIALS MANAGEMENT plans for re-evaluation on 12/10. 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 -Initial stroke evaluation did not reveal acute stroke but MRI 12/05 recognized a left thalamic stroke, possibly explaining his mental status change as so far his infectious work up remains negative. LED negative for acute DVT b/l LE 12/12, NSGY signed off, no MARINE WELDER shunt malfunction. Neurology signed off, stroke work up completed, SMART consult completed. - Medications were reviewed to decrease polypharmacy in setting of somnolence. Zoloft 150mg Daily held due to somnolence; patient more awake afterwards however mental status remains fluctuating, discussed with Neurology recommended continue home dose valproic acid 500 mg b.I.d. ( per neurology assessment his mental status has been same as seen on 12/05- likely his baseline ) - Planned for 30 day event monitor on discharge (Dr. 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 -Initial stroke evaluation did not reveal acute stroke but MRI 12/05 recognized a left thalamic stroke, possibly explaining his mental status change as so far his infectious work up remains negative. LED negative for acute DVT b/l LE 12/12, NSGY signed off, no MARINE WELDER shunt malfunction. Neurology signed off, stroke work up completed, SMART consult completed. - Medications were reviewed to decrease polypharmacy in setting of somnolence. Zoloft 150mg Daily held due to somnolence; patient more awake afterwards however mental status remains fluctuating, discussed with Neurology recommended continue home dose valproic acid 500 mg b.I.d. ( per neurology assessment his mental status has been same asseen on 12/05- likely his baseline ) PLAN - Delirium precautions - will need loop recorder on discharge (Dr. 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 -Initial stroke evaluation did not reveal acute stroke but MRI 12/05 recognized a left thalamic stroke, possibly explaining his mental status change as so far his infectious work up remains negative. LED negative for acute DVT b/l LE 12/12, NSGY signed off, no MARINE WELDER shunt malfunction. Neurology signed off, stroke work up completed, SMART consult completed. - Medications were reviewed to decrease polypharmacy in setting of somnolence. Zoloft 150mg Daily held due to somnolence; patient more awake afterwards however mental status remains fluctuating, discussed with Neurology recommended continue home dose valproic acid 500 mg b.I.d. ( per neurology assessment his mental status has been same asseen on 12/05- likely his baseline ) PLAN - Delirium precautions - will need loop recorder on discharge (Dr. Diaz to follow up) - Continue ASA 81mg daily in addition to Plavix 75mg Daily (on hold for PEG on 12/17) - resumed 12/18 Assessment & Plan (12/23/2024 12:30 PM CDT): -H/O of Rt frontal stroke (residual left-sided weakness, predominantly LUE), R ICA stent placed (2016), large lt frontal arachnoid cyst and 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 -Initial stroke evaluation did not reveal acute stroke but MRI 12/05 recognized a left thalamic stroke, possibly explaining his mental status change as so far his infectious work up remains negative. LED negative for acute DVT b/l LE 12/12, NSGY signed off, no MARINE WELDER shunt malfunction. Neurology signed off, stroke work up completed, SMART consult completed. - Medications were reviewed to decrease polypharmacy in setting of somnolence. Zoloft 150mg Daily held due to somnolence; patient more awake afterwards however mental status remains fluctuating, discussed with Neurology recommended continue home dose valproic acid 500 mg b.I.d. ( per neurology assessment his mental status has been same asseen on 12/05- likely his baseline ) PLAN - Delirium precautions - will need loop recorder on discharge (Dr. Diaz to follow up) - Continue ASA 81mg daily in addition to Plavix 75mg Daily (on hold for PEG on 12/17) - resumed 12/18 Assessment & Plan (12/22/2024 12:02 PM CDT): -H/O of Rt frontal stroke (residual left-sided weakness, predominantly LUE), R ICA stent placed (2016), large lt frontal arachnoid cyst and NPH s/p placement of a lt frontal ventriculoperitoneal shunt (July 2023, Dr. Mcgill, [facility], 3), dementia, who presents with altered mental status, aphasia noted by his nursing facility from [facility]. -Initial stroke evaluation did not reveal acute stroke but MRI 12/05 recognized a left thalamic stroke, possibly explaining his mental status change as so far his infectious work up remains negative. LED negative for acute DVT b/l LE 12/12, NSGY signed off, no MARINE WELDER shunt malfunction. Neurology signed off, stroke work up completed, SMART consult completed. - Medications were reviewed to decrease polypharmacy in setting of somnolence. Zoloft 150mg Daily held due to somnolence; patient more awake afterwards however mental status remains fluctuating, discussed with Neurology recommended continue home dose valproic acid 500 mg b.I.d. ( per neurology assessment his mental status has been same asseen on 12/05- likely his baseline ) PLAN - Delirium precautions - will need loop recorder on discharge (Dr. Diaz to follow up) - Continue ASA 81mg daily in addition to Plavix 75mg Daily (on hold for PEG on 12/17) - resumed 12/18 Assessment & Plan (12/21/2024 6:36 PM CDT): -H/O of Rt frontal stroke (residual left-sided weakness, predominantly LUE), R ICA stent placed (2016), large lt frontal arachnoid cyst and 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 -Initial stroke evaluation did not reveal acute stroke but MRI 12/05 recognized a left thalamic stroke, possibly explaining his mental status change as so far his infectious work up remains negative. LED negative for acute DVT b/l LE 12/12, NSGY signed off, no MARINE WELDER shunt malfunction. Neurology signed off, stroke work up completed, SMART consult completed. - Medications were reviewed to decrease polypharmacy in setting of somnolence. Zoloft 150mg Daily held due to somnolence; patient more awake afterwards however mental status remains fluctuating, discussed with Neurology recommended continue home dose valproic acid 500 mg b.I.d. ( per neurology assessment his mental status has been same asseen on 12/05- likely his baseline ) PLAN - Delirium precautions - will need loop recorder on discharge (Dr. Diaz to follow up) - Continue ASA 81mg daily in addition to Plavix 75mg Daily (on hold for PEG on 12/17) - resumed 12/18 Assessment & Plan (12/20/2024 5:26 PM CDT): -H/O of Rt frontal stroke (residual left-sided weakness, predominantly LUE), R ICA stent placed (2016), large lt frontal arachnoid cyst and 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 -Initial stroke evaluation did not reveal acute stroke but MRI 12/05 recognized a left thalamic stroke, possibly explaining his mental status change as so far his infectious work up remains negative. LED negative for acute DVT b/l LE 12/12, NSGY signed off, no MARINE WELDER shunt malfunction. Neurology signed off, stroke work up completed, SMART consult completed. - Medications were reviewed to decrease polypharmacy in setting of somnolence. Zoloft 150mg Daily held due to somnolence; patient more awake afterwards however mental status remains fluctuating, discussed with Neurology recommended continue home dose valproic acid 500 mg b.I.d. ( per neurology assessment his mental status has been same asseen on 12/05- likely his baseline ) PLAN - Delirium precautions - continue on telemetry, will need loop recorder on discharge (Dr. Diaz to follow up) - Continue ASA 81mg daily in addition to Plavix 75mg Daily (on hold for PEG on 12/17) - resumed 12/18 Assessment & Plan (12/19/2024 5:56 PM CDT): -H/O of Rt frontal stroke (residual left-sided weakness, predominantly LUE), R ICA stent placed (2016), large lt frontal arachnoid cyst and NPH s/p placement of a lt frontal ventriculoperitoneal shunt (July 2023, Dr. Mcgill, [facility], 3), dementia, who presents with altered mental status, aphasia noted by his nursing facility from [facility]. -Initial stroke evaluation did not reveal acute stroke but MRI 12/05 recognized a left thalamic stroke, possibly explaining his mental status change as so far his infectious work up remains negative. LED negative for acute DVT b/l LE 12/12, NSGY signed off, no MARINE WELDER shunt malfunction. Neurology signed off, stroke work up completed, SMART consult completed. - Medications were reviewed to decrease polypharmacy in setting of somnolence. Zoloft 150mg Daily held due to somnolence; patient more awake afterwards however mental status remains fluctuating, discussed with Neurology recommended continue home dose valproic acid 500 mg b.I.d. ( per neurology assessment his mental status has been same asseen on 12/05- likely his baseline ) PLAN - Delirium precautions - continue on telemetry, will need loop recorder on discharge (Dr. Diaz to follow up) - Continue ASA 81mg daily in addition to Plavix 75mg Daily (on hold for PEG on 12/17) - resumed 12/18 Assessment & Plan (12/18/2024 5:01 PM CDT): -H/O of Rt frontal stroke (residual left-sided weakness, predominantly LUE), R ICA stent placed (2016), large lt frontal arachnoid cyst and 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 -Initial stroke evaluation did not reveal acute stroke but MRI 12/05 recognized a left thalamic stroke, possibly explaining his mental status change as so far his infectious work up remains negative. LED negative for acute DVT b/l LE 12/12, NSGY signed off, no MARINE WELDER shunt malfunction. Neurology signed off, stroke work up completed, SMART consult completed. - Medications were reviewed to decrease polypharmacy in setting of somnolence. Zoloft 150mg Daily held due to somnolence; patient more awake afterwards however mental status remains fluctuating, remained somnolent, called Neurology if valproic acid can be switched to Keppra due to ongoing AMS, awaiting further evaluation of encephalopathy. PLAN - Delirium precautions - continue on telemetry, will need loop recorder on discharge (Dr. Diaz to follow up) - Continue ASA 81mg daily in addition to Plavix 75mg Daily (on hold for PEG on 12/17) - resumed 12/18 - Follow up on further Neurology recommendations Assessment & Plan (12/17/2024 2:04 PM CDT): H/O of right frontal stroke (residual left-sided weakness, predominantly LUE), R ICA stent placed (2016), large left frontal arachnoid cyst and normal-pressure hydrocephalus status post placement of a left frontal ventriculoperitoneal shunt (July 2023, Michelle Abrams, 3), dementia, who presents with altered mental status, aphasia noted by his nursing facility from [facility]. Initial stroke evaluation did not reveal acute stroke but MRI 12/05 recognized a left thalamic stroke, possibly explaining his mental status change as so far his infectious work up remains negative. LED negative for acute DVT b/l LE 12/12 - NSGY signed off, no MARINE WELDER shunt malfunction. - Neurology signed off. - stroke work up completed - SMART consult completed - continue on telemetry, will need loop recorder on discharge (Dr. Diaz to follow up) - Medications were reviewed to decrease polypharmacy in setting of somnolence. Zoloft 150mg Daily held due to somnolence; patient more awake afterwards however mental status remains fluctuating. - Continue ASA 81mg daily in addition to Plavix 75mg Daily (on hold for PEG on 12/17) Assessment & Plan (12/16/2024 2:11 PM CDT): H/O of right frontal stroke (residual left-sided weakness, predominantly LUE), R ICA stent placed (2016), large left frontal arachnoid cyst and normal-pressure hydrocephalus status post placement of a left frontal ventriculoperitoneal shunt (July 2023, [facility], 3), dementia, who presents with altered mental status, aphasia noted by his nursing facility from [facility]. Initial stroke evaluation did not reveal acute stroke but MRI 12/05 recognized a left thalamic stroke, possibly explaining his mental status change as so far his infectious work up remains negative. LED negative for acute DVT b/l LE 12/12 - NSGY signed off, no MARINE WELDER shunt malfunction. - Neurology signed off. - stroke work up completed - SMART consult completed - continue on telemetry, will need loop recorder on discharge (Dr. Diaz to follow up) - Medications were reviewed to decrease polypharmacy in setting of somnolence. Zoloft 150mg Daily held due to somnolence; patient more awake afterwards however mental status remains fluctuating. - Continue ASA 81mg daily in addition to Plavix 75mg Daily (on hold for PEG on 12/17) Assessment & Plan (12/15/2024 2:37 PM CDT): H/O of right frontal stroke (residual left-sided weakness, predominantly LUE), R ICA stent placed (2016), large left frontal arachnoid cyst and normal-pressure hydrocephalus status post placement of a left frontal ventriculoperitoneal shunt (July 2023, [facility], 3), dementia, who presents with altered mental status, aphasia noted by his nursing facility from [facility]. Initial stroke evaluation did not reveal acute stroke but MRI 12/05 recognized a left thalamic stroke, possibly explaining his mental status change as so far his infectious work up remains negative. LED negative for acute DVT b/l LE 12/12 - NSGY signed off, no MARINE WELDER shunt malfunction. - Neurology signed off. - stroke work up completed - SMART consult completed - continue on telemetry, will need loop recorder on discharge (Dr. Diaz to follow up) - Medications were reviewed to decrease polypharmacy in setting of somnolence. Zoloft 150mg Daily held due to somnolence; patient more awake afterwards however mental status remains fluctuating. - Continue ASA 81mg daily in addition to Plavix 75mg Daily (on hold for PEG on 12/17) Assessment & Plan (12/14/2024 3:53 PM CDT): H/O of right frontal stroke (residual left-sided weakness, predominantly LUE), R ICA stent placed (2016), large left frontal arachnoid cyst and normal-pressure hydrocephalus status post placement of a left frontal ventriculoperitoneal shunt (July 2023, Michelle Abrams, 3), dementia, who presents with altered mental status, aphasia noted by his nursing facility from [facility]. Initial stroke evaluation did not reveal acute stroke but MRI 12/05 recognized a left thalamic stroke, possibly explaining his mental status change as so far his infectious work up remains negative. LED negative for acute DVT b/l LE 12/12 - NSGY signed off, no MARINE WELDER shunt malfunction. - Neurology signed off. - stroke work up completed - SMART consult completed - continue on telemetry, will need loop recorder on discharge (Dr. Diaz to follow up) - Medications were reviewed to decrease polypharmacy in setting of somnolence. Zoloft 150mg Daily held due to somnolence; patient more awake afterwards. - Continue ASA 81mg daily in addition to Plavix 75mg Daily (on hold for PEG on 12/17) Assessment & Plan (12/13/2024 3:12 PM CDT): H/O of right frontal stroke (residual left-sided weakness, predominantly LUE), R ICA stent placed (2016), large left frontal arachnoid cyst and normal-pressure hydrocephalus status post placement of a left frontal ventriculoperitoneal shunt (July 2023, Michelle Abrams, 3), dementia, who presents with altered mental status, aphasia noted by his nursing facility from [facility]. Initial stroke evaluation did not reveal acute stroke but MRI 12/05 recognized a left thalamic stroke, possibly explaining his mental status change as so far his infectious work up remains negative. LED negative for acute DVT b/l LE 12/12 - NSGY signed off, no MARINE WELDER shunt malfunction. - Neurology signed off. - stroke work up completed - SMART consult completed - continue on telemetry, will need loop recorder on discharge (Dr. Diaz to follow up) - Continue ASA 81mg daily in addition to Plavix 75mg Daily (on hold for PEG on 12/17) Assessment & Plan (12/12/2024 3:57 PM CDT): H/O of right frontal stroke (residual left-sided weakness, predominantly LUE), R ICA stent placed (2016), large left frontal arachnoid cyst and normal-pressure hydrocephalus status post placement of a left frontal ventriculoperitoneal shunt (July 2023, [facility] Abrams, 3), dementia, who presents with altered mental status, aphasia noted by his nursing facility from [facility]. Initial stroke evaluation did not reveal acute stroke but MRI 12/05 recognized a left thalamic stroke, possibly explaining his mental status change as so far his infectious work up remains negative. LED negative for acute DVT b/l LE 12/12 - NSGY signed off, no MARINE WELDER shunt malfunction. - Neurology signed off. - stroke work up completed - SMART consult completed - continue on telemetry, will need loop recorder on discharge (Dr. Diaz to follow up) - Continue ASA 81mg daily in addition to Plavix 75mg Daily (on hold for PEG on 12/17) Assessment & Plan (12/11/2024 3:46 PM CDT): H/O of right frontal stroke (residual left-sided weakness, predominantly LUE), R ICA stent placed (2016), large left frontal arachnoid cyst and normal-pressure hydrocephalus status post placement of a left frontal ventriculoperitoneal shunt (July 2023, [facility] Abrams, 3), dementia, who presents with altered mental status, aphasia noted by his nursing facility from [facility]. Initial stroke evaluation did not reveal acute stroke but MRI 12/05 recognized a left thalamic stroke, possibly explaining his mental status change as so far his infectious work up remains negative - NSGY signed off, no MARINE WELDER shunt malfunction. - Neurology signed off. - stroke work up completed - SMART consult completed - continue on telemetry, will need loop recorder on discharge (Dr. Diaz to follow up) - Continue ASA 81mg daily in addition to Plavix 75mg Daily (on hold for PEG on 12/17) Assessment & Plan (12/10/2024 9:26 AM CDT): H/O of right frontal stroke (residual left-sided weakness, predominantly LUE), R ICA stent placed (2016), large left frontal arachnoid cyst and normal-pressure hydrocephalus status post placement of a left frontal ventriculoperitoneal shunt (July 2023, Michelle Abrams, 3), dementia, who presents with altered mental status, aphasia noted by his nursing facility from [facility]. Initial stroke evaluation did not reveal acute stroke but MRI done today, which is more sensitive, recognized a left thalamic stroke, possibly explaining his mental status change as so far his infectious work up remains negative - NSGY signed off, no MARINE WELDER shunt malfunction. - Neurology signed off. - stroke work up completed - SMART consult completed - continue on telemetry, will need loop recorder on discharge (Dr. Diaz to follow up) - Continue ASA 81mg daily in addition to Plavix 75mg Daily Assessment & Plan (12/09/2024 10:21 AM CDT): H/O of right frontal stroke (residual left-sided weakness, predominantly LUE), R ICA stent placed (2017), large left frontal arachnoid cyst and normal-pressure hydrocephalus status post placement of a left frontal ventriculoperitoneal shunt (July 2023, Michelle Abrams, 3), dementia, who presents with altered mental status, aphasia noted by his nursing facility from [facility]. Initial stroke evaluation did not reveal acute stroke but MRI done today, which is more sensitive, recognized a left thalamic stroke, possibly explaining his mental status change as so far his infectious work up remains negative - NSGY signed off, no MARINE WELDER shunt malfunction. - Neurology signed off. - stroke work up completed - SMART consult completed - continue on telemetry, will need loop recorder on discharge (Dr. Diaz to follow up) - Continue ASA 81mg daily in addition to Plavix 75mg Daily Assessment & Plan (12/08/2024 10:24 AM CDT): H/O of right frontal stroke (residual left-sided weakness, predominantly LUE), R ICA stent placed (2017), large left frontal arachnoid cyst and normal-pressure hydrocephalus status post placement of a left frontal ventriculoperitoneal shunt (July 2023, Michelle Abrams, 3), dementia, who presents with altered mental status, aphasia noted by his nursing facility from [facility]. Initial stroke evaluation did not reveal acute stroke but MRI done today, which is more sensitive, recognized a left thalamic stroke, possibly explaining his mental status change as so far his infectious work up remains negative - NSGY signed off, no MARINE WELDER shunt malfunction. - Neurology signed off. - stroke work up completed - SMART consult completed - continue on telemetry, will need loop recorder on discharge (Dr. Diaz to follow up) - Continue ASA 81mg daily in addition to Plavix 75mg Daily Assessment & Plan (12/07/2024 10:15 AM CDT): H/O of right frontal stroke (residual left-sided weakness, predominantly LUE), R ICA stent placed (2017), large left frontal arachnoid cyst and normal-pressure hydrocephalus status post placement of a left frontal ventriculoperitoneal shunt (July 2023, Michelle Abrams, 3), dementia, who presents with altered mental status, aphasia noted by his nursing facility from [facility]. Initial stroke evaluation did not reveal acute stroke but MRI done today, which is more sensitive, recognized a left thalamic stroke, possibly explaining his mental status change as so far his infectious work up remains negative - NSGY signed off, no MARINE WELDER shunt malfunction. - Neurology consulted - complete stroke work up completed - SMART consult completed - continue on telemetry, will need loop recorder on discharge (Dr. Diaz to follow up) - Continue ASA 81mg daily in addition to Plavix 75mg Daily Assessment & Plan (12/06/2024 2:46 PM CDT): H/O of right frontal stroke (residual left-sided weakness, predominantly LUE), R ICA stent placed (2017), large left frontal arachnoid cyst and normal-pressure hydrocephalus status post placement of a left frontal ventriculoperitoneal shunt (July 2023, Michelle Abrams, 3), dementia, who presents with altered mental status, aphasia noted by his nursing facility from [facility]. Initial stroke evaluation did not reveal acute stroke but MRI done today, which is more sensitive, recognized a left thalamic stroke, possibly explaining his mental status change as so far his infectious work up remains negative - Neurology consulted - complete stroke work up - SMART consult - continue on telemetry - Started ASA. -Neurosurgery consulted, low concern for shunt failure and to evaluate for metabolic causes. Recommended MRI brain tumor Assessment & Plan (12/05/2024 11:40 AM CDT): H/O of right frontal stroke (residual left-sided weakness, predominantly LUE), R ICA stent placed (2016), large left frontal arachnoid cyst and normal-pressure hydrocephalus status post placement of a left frontal ventriculoperitoneal shunt (July 2023, Michelle Abrams, 3), dementia, who presents with altered mental status, aphasia noted by his nursing facility from [facility]. Initial stroke evaluation did not reveal acute stroke but MRI done today, which is more sensitive, recognized a left thalamic stroke, possibly explaining his mental status change as so far his infectious work up has been negative. - Neurology consulted - complete stroke work up - SMART consult - continue on telemetry - clarify with NSGY regarding ASA indication for R ICA stent -Neurosurgery consulted, low concern for shunt failure and to evaluate for metabolic causes. Recommended MRI brain tumor - discontinue Abx given negative cultures. MARYBETH (acute kidney injury) 12/05/2024 Assessment & Plan (12/26/2024 1:39 PM CDT): Renal US without abnormalities. Urine lytes are intermediate (pre-renal vs intrinsic). Cr improving and near baseline of 0.9-1, lytes remain stable likely indicating recovery from initial insult. - Resolved Assessment & Plan (12/25/2024 3:26 PM CDT): Renal US without abnormalities. Urine lytes are intermediate (pre-renal vs intrinsic). Cr improving and near baseline of 0.9-1, lytes remain stable likely indicating recovery from initial insult. - trend renal function daily. - Resolved Assessment & Plan (12/24/2024 4:00 PM CDT): Renal US without abnormalities. Urine lytes are intermediate (pre-renal vs intrinsic). Cr improving and near baseline of 0.9-1, lytes remain stable likely indicating recovery from initial insult. - trend renal function daily. - Resolved Assessment & Plan (12/23/2024 12:30 PM CDT): Renal US without abnormalities. Urine lytes are intermediate (pre-renal vs intrinsic). Cr improving and near baseline of 0.9-1, lytes remain stable likely indicating recovery from initial insult. - trend renal function daily. - Resolved Assessment & Plan (12/22/2024 12:02 PM CDT): Renal US without abnormalities. Urine lytes are intermediate (pre-renal vs intrinsic). Cr improving and near baseline of 0.9-1, lytes remain stable likely indicating recovery from initial insult. - trend renal function daily. - Resolved Assessment & Plan (12/21/2024 6:36 PM CDT): Renal US without abnormalities. Urine lytes are intermediate (pre-renal vs intrinsic). Cr improving and near baseline of 0.9-1, lytes remain stable likely indicating recovery from initial insult. - trend renal function daily. - Resolved Assessment & Plan (12/20/2024 5:26 PM CDT): Renal US without abnormalities. Urine lytes are intermediate (pre-renal vs intrinsic). Cr improving and near baseline of 0.9-1, lytes remain stable likely indicating recovery from initial insult. - trend renal function daily. - Resolved Assessment & Plan (12/19/2024 5:56 PM CDT): Renal US without abnormalities. Urine lytes are intermediate (pre-renal vs intrinsic). Cr improving and near baseline of 0.9-1, lytes remain stable likely indicating recovery from initial insult. - trend renal function daily. - Resolved Assessment & Plan (12/18/2024 5:01 PM CDT): Renal US without abnormalities. Urine lytes are intermediate (pre-renal vs intrinsic). Cr improving and near baseline of 0.9-1, lytes remain stable likely indicating recovery from initial insult. - trend renal function daily. - Resolved Assessment & Plan (12/17/2024 2:04 PM CDT): Renal US without abnormalities. Urine lytes are intermediate (pre-renal vs intrinsic). Cr improving and near baseline of 0.9-1, lytes remain stable likely indicating recovery from initial insult. - trend renal function daily. - Resolved Assessment & Plan (12/16/2024 2:11 PM CDT): Renal US without abnormalities. Urine lytes are intermediate (pre-renal vs intrinsic). Cr improving and near baseline of 0.9-1, lytes remain stable likely indicating recovery from initial insult. - trend renal function daily. - Resolved Assessment & Plan (12/15/2024 2:37 PM CDT): Renal US without abnormalities. Urine lytes are intermediate (pre-renal vs intrinsic). Cr improving and near baseline of 0.9-1, lytes remain stable likely indicating recovery from initial insult. - trend renal function daily. - Resolved Assessment & Plan (12/14/2024 3:53 PM CDT): Renal US without abnormalities. Urine lytes are intermediate (pre-renal vs intrinsic). Cr improving and near baseline of 0.9-1, lytes remain stable likely indicating recovery from initial insult. - trend renal function daily. - Resolved Assessment & Plan (12/13/2024 3:12 PM CDT): Renal US without abnormalities. Urine lytes are intermediate (pre-renal vs intrinsic). Cr improving and near baseline of 0.9-1, lytes remain stable likely indicating recovery from initial insult. - trend renal function daily. Assessment & Plan (12/12/2024 3:57 PM CDT): Renal US without abnormalities. Urine lytes are intermediate (pre-renal vs intrinsic). Cr improving and near baseline of 0.9-1, lytes remain stable likely indicating recovery from initial insult. - trend renal function daily. Assessment & Plan (12/11/2024 3:46 PM CDT): Renal US without abnormalities. Urine lytes are intermediate (pre-renal vs intrinsic). Cr improving and near baseline of 0.9-1, lytes remain stable likely indicating recovery from initial insult. - trend renal function daily. - hold lisinopril Assessment & Plan (12/10/2024 9:26 AM CDT): Cr improving today and near baseline of 0.9-1, lytes remain stable likely indicating recovery from initial insult. Renal US without abnormalities. Urine lytes are intermediate (pre-renal vs intrinsic) - trend renal function daily. - hold lisinopril Assessment & Plan (12/09/2024 10:21 AM CDT): Cr improving today and near baseline of 0.9-1, lytes remain stable likely indicating recovery from initial insult. Renal US without abnormalities. Urine lytes are intermediate (pre-renal vs intrinsic) - trend renal function daily. - hold lisinopril Assessment & Plan (12/08/2024 10:24 AM CDT): Cr improving today, lytes remain stable likely indicating recovery from initial insult. Renal US without abnormalities. Urine lytes are intermediate (pre-renal vs intrinsic) - trend renal function daily. - hold lisinopril Assessment & Plan (12/07/2024 9:55 AM CDT): Cr improving today, lytes remain stable likely indicating recovery from initial insult. Renal US without abnormalities. Urine lytes are intermediate (pre-renal vs intrinsic) - trend renal function daily. - hold lisinopril Assessment & Plan (12/06/2024 2:46 PM CDT): Sharp elevation in Cr and BUN on labs today consistent with MARYBETH. Could be medication induced given patient received contrast load with stroke work up and then was started on vanc/zosyn in addition to being on home lisinopril. Schuster in-place with appropriate drainage, making obstructive unlikely - Renal US obtained ON with no apparent abnormalities - hold lisinopril - Obtain urine lytes to evaluate possible etiology. Assessment & Plan (12/05/2024 11:40 AM CDT): Sharp elevation in Cr and BUN on labs today consistent with MARYBETH. Could be medication induced. Schuster in-place with appropriate drainage, making obstructive unlikely - 1.2L bolus over 4 hours - hold lisinopril - repeat RFP later today, trend lytes daily afterwards. Acute respiratory failure 12/04/2024 Assessment & Plan (12/26/2024 1:39 PM CDT): Normally on room air and req 3L O2, has been having frequent coughing, coarse breath sounds on auscultation, CXR shows hazy infiltrates, received 1 dose of IV Lasix with no improvement, recent TTE 12/05/24 no RWMA, EF 71%, CTA PE 12/24 no evidence of PE, there is findings of mild aspiration with bronchial mucous plugging and tree-in-bud nodularity Rt>lt. Started Robitussin, chest PT, empiric antibiotics and weaning oxygen as tolerated. Started on IV Unasyn - 12/24 > Augmentin 12/25 - 12/28. Currently on 2 L satting high 90s to 100%, weaning further to room air as tolerated. Assessment & Plan (12/25/2024 3:26 PM CDT): - has been req 3L O2 since few days, has been having frequent coughing, coarse breath sounds on auscultation, CXR shows hazy infiltrates, received 1 dose of IV Lasix with no improvement, recent TTE 12/05/24 no RWMA, EF 71%, CTA PE 12/24 no evidence of PE, there is findings of mild aspiration with bronchial mucous plugging and tree-in-bud nodularity Rt>lt. - Start Robitussin, chest PT - Oxygen per protocol, wean as able - Aspiration precautions - IV Unasyn - 8 > Augmentin 12/25 - 12/28. Assessment & Plan (12/24/2024 4:02 PM CDT): - has been req 3L O2 since few days, has been having frequent coughing, coarse breath sounds on auscultation, CXR shows hazy infiltrates, received 1 dose of IV Lasix with no improvement, recent TTE 12/05/24 no RWMA, EF 71%, CTA PE 12/24 no evidence of PE, there is findings of mild aspiration with bronchial mucous plugging and tree-in-bud nodularity Rt>lt, we will start IV Unasyn, continue chest PT, if no improvement consult pulm for further evaluation. Plan - Oxygen per protocol, wean as able - aspiration precautions - IV Unasyn - 12/24 - chest PT Assessment & Plan (12/07/2024 9:55 AM CDT): Weaned to RA today and remained appropriate. Assessment & Plan (12/06/2024 2:46 PM CDT): Placed on 2L O2 for desat. CT-PE obtained without PE or evidence of PNA. Possible having aspiration pneumonitis. - wean O2 as tolerated - DIRECTOR OF MATERIALS MANAGEMENT following. Assessment & Plan (12/05/2024 11:40 AM CDT): Placed on 2L O2 for desat. CT-PE obtained without PE or evidence of PNA. Possible having aspiration pneumonitis. - wean O2 as tolerated - DIRECTOR OF MATERIALS MANAGEMENT to evaluate. Assessment & Plan (12/04/2024 12:15 PM CDT): Around 5am this morning, patient has new o2 requirement , tachycardic, tachypneic and repeat lactic acid is still 4.1 suspect Asp PNA vs PE broadened coverage with Zosyn , vancomycin CTPE ordered, limited study but no PE His lactate has come down and BP improving Resp is stable on 2L Assessment & Plan (12/04/2024 5:08 AM CDT): Around 5am, patient has new o2 requirement , tachycardic, tachypneic and repeat lactic acid is still 4.1 suspect Asp PNA vs PE broadened coverage with Zosyn , vancomycin CTPE ordered Disorientation 12/03/2024 Moderate major depression 11/30/2024 Assessment & Plan (12/26/2024 1:39 PM CDT): - Continue Risperidone 0.25mg BID - Continue to hold Zoloft 150mg Daily (held due to somnolence) Assessment & Plan (12/25/2024 3:26 PM CDT): Continue home meds - Risperidone 0.5mg BID - Zoloft 150mg Daily (held due to somnolence) Assessment & Plan (12/24/2024 4:00 PM CDT): Continue home meds - Risperidone 0.5mg BID - Zoloft 150mg Daily (held due to somnolence) Assessment & Plan (12/23/2024 12:30 PM CDT): Continue home meds - Risperidone 0.5mg BID - Zoloft 150mg Daily (held due to somnolence) Assessment & Plan (12/22/2024 12:02 PM CDT): Continue home meds - Risperidone 0.5mg BID - Zoloft 150mg Daily (held due to somnolence) Assessment & Plan (12/21/2024 6:36 PM CDT): Continue home meds - Risperidone 0.5mg BID - Zoloft 150mg Daily (held due to somnolence) Assessment & Plan (12/20/2024 5:26 PM CDT): Continue home meds - Risperidone 0.5mg BID - Zoloft 150mg Daily (held due to somnolence) Assessment & Plan (12/19/2024 5:56 PM CDT): Continue home meds - Risperidone 0.5mg BID - Zoloft 150mg Daily (held due to somnolence) Assessment & Plan (12/18/2024 5:01 PM CDT): Continue home meds - Risperidone 0.5mg BID - Zoloft 150mg Daily (held due to somnolence) Assessment & Plan (12/17/2024 2:04 PM CDT): Continue home meds - Risperidone 0.5mg BID - Zoloft 150mg Daily (held due to somnolence) Assessment & Plan (12/16/2024 2:11 PM CDT): Continue home meds - Risperidone 0.5mg BID - Zoloft 150mg Daily (held due to somnolence) Assessment & Plan (12/15/2024 2:37 PM CDT): Continue home meds - Risperidone 0.5mg BID - Zoloft 150mg Daily (held due to somnolence) Assessment & Plan (12/14/2024 3:53 PM CDT): Continue home meds - Risperidone 0.5mg BID - Zoloft 150mg Daily (held due to somnolence) Assessment & Plan (12/13/2024 3:12 PM CDT): Continue home meds - Risperidone 0.5mg BID - Zoloft 150mg Daily (held due to somnolence) Assessment & Plan (12/12/2024 3:57 PM CDT): Continue home meds - Risperidone 0.5mg BID - Zoloft 150mg Daily (held due to somnolence) Assessment & Plan (12/11/2024 3:46 PM CDT): Continue home meds - Risperidone 0.5mg BID - Zoloft 150mg Daily Assessment & Plan (12/10/2024 9:26 AM CDT): Continue home meds - Risperidone 0.5mg BID - Zoloft 150mg Daily Assessment & Plan (12/09/2024 10:21 AM CDT): Continue home meds - Risperidone 0.5mg BID - Zoloft 150mg Daily Assessment & Plan (12/08/2024 10:24 AM CDT): Continue home meds - Risperidone 0.5mg BID - Zoloft 150mg Daily Assessment & Plan (12/07/2024 9:55 AM CDT): Continue home meds - Risperidone 0.5mg BID - Zoloft 150mg Daily Assessment & Plan (12/06/2024 2:46 PM CDT): Continue home meds - Risperidone 0.5mg BID - Zoloft 150mg Daily Assessment & Plan (12/05/2024 11:40 AM CDT): Continue home meds - Risperidone 0.5mg BID - Zoloft 150mg Daily Assessment & Plan (12/04/2024 8:15 AM CDT): Home meds: Risperdal, Zoloft Hold Zoloft given AMS Assessment & Plan (12/04/2024 1:37 AM CDT): Home meds: Risperdal, Zoloft Hold Zoloft given AMS Assessment & Plan (11/30/2024 5:56 PM CDT): [...] Ferritin; Future Iron profile w/ IBC; Future HLD (hyperlipidemia) 09/30/2023 Assessment & Plan (12/26/2024 1:15 PM CDT): Continue home statin Assessment & Plan (12/25/2024 3:26 PM CDT): Continue home statin Assessment & Plan (12/24/2024 4:00 PM CDT): Continue home statin Assessment & Plan (12/23/2024 12:30 PM CDT): Continue home statin Assessment & Plan (12/22/2024 12:02 PM CDT): Continue home statin Assessment & Plan (12/21/2024 6:36 PM CDT): Continue home statin Assessment & Plan (12/20/2024 5:26 PM CDT): Continue home statin Assessment & Plan (12/19/2024 5:56 PM CDT): Continue home statin Assessment & Plan (12/18/2024 5:01 PM CDT): Continue home statin Assessment & Plan (12/17/2024 2:04 PM CDT): Continue home statin Assessment & Plan (12/16/2024 2:11 PM CDT): Continue home statin Assessment & Plan (12/15/2024 2:37 PM CDT): Continue home statin Assessment & Plan (12/14/2024 3:53 PM CDT): Continue home statin - consider ezetimibe Assessment & Plan (12/13/2024 3:12 PM CDT): Continue home statin - consider ezetimibe Assessment & Plan (12/12/2024 3:57 PM CDT): Continue home statin - consider ezetimibe Assessment & Plan (12/11/2024 3:46 PM CDT): Continue home statin - consider ezetimibe Assessment & Plan (12/10/2024 9:26 AM CDT): Continue home statin - consider ezetimibe Assessment & Plan (12/09/2024 10:21 AM CDT): Continue home statin - consider ezetimibe Assessment & Plan (12/08/2024 10:24 AM CDT): Continue home statin - consider ezetimibe Assessment & Plan (12/07/2024 9:55 AM CDT): Continue home statin - consider ezetimibe Assessment & Plan (12/06/2024 2:46 PM CDT): Continue home statin Assessment & Plan (12/05/2024 11:40 AM CDT): Continue home statin Assessment & Plan (12/04/2024 8:15 AM CDT): Continue statin Assessment & Plan (12/03/2024 11:43 PM CDT): Continue statin Assessment & Plan (11/30/2024 5:56 PM CDT): Orders: Lipid panel; Future CBC with auto differential; Future atorvastatin (LIPITOR) 80 mg tablet; Take 1 tablet (80 mg total) by mouth nightly Assessment & Plan (11/30/2024 5:56 PM CDT): Hypertension 09/22/2023 Assessment & Plan (12/26/2024 1:39 PM CDT): Held home lisinopril given MARYBETH. BP starting to trend up but given recent stroke will need brief period of permissive hypertension. - Lisinopril resumed after stabilization of creatinine > DC on 20 mg daily, doxazosin 1 mg nightly Assessment & Plan (12/25/2024 3:26 PM CDT): Held home lisinopril given MARYBETH. BP starting to trend up but given recent stroke will need brief period of permissive hypertension. - Lisinopril resumed after stabilization of creatinine, doxazosin nightly - hydral 25mg PO prn for SBP >190 Assessment & Plan (12/24/2024 4:00 PM CDT): Held home lisinopril given MARYBETH. BP starting to trend up but given recent stroke will need brief period of permissive hypertension. -Lisinopril resumed after stabilization of creatinine, doxazosin nightly - hydral 25mg PO prn for SBP >190 Assessment & Plan (12/23/2024 12:30 PM CDT): Held home lisinopril given MARYBETH. BP starting to trend up but given recent stroke will need brief period of permissive hypertension. -Lisinopril resumed after stabilization of creatinine, doxazosin nightly - hydral 25mg PO prn for SBP >190 Assessment & Plan (12/22/2024 12:02 PM CDT): Held home lisinopril given MARYBETH. BP starting to trend up but given recent stroke will need brief period of permissive hypertension. -Lisinopril resumed after stabilization of creatinine, doxazosin nightly - hydral 25mg PO prn for SBP >190 Assessment & Plan (12/21/2024 6:36 PM CDT): Held home lisinopril given MARYBETH. BP starting to trend up but given recent stroke will need brief period of permissive hypertension. -Lisinopril resumed after stabilization of creatinine, doxazosin nightly - hydral 25mg PO prn for SBP >190 Assessment & Plan (12/20/2024 5:26 PM CDT): Held home lisinopril given MARYBETH. BP starting to trend up but given recent stroke will need brief period of permissive hypertension. -Lisinopril resumed after stabilization of creatinine, doxazosin nightly - hydral 25mg PO prn for SBP >190 Assessment & Plan (12/19/2024 5:56 PM CDT): Held home lisinopril given MARYBETH. BP starting to trend up but given recent stroke will need brief period of permissive hypertension. -Lisinopril resumed after stabilization of creatinine, doxazosin nightly - hydral 25mg PO prn for SBP >190 Assessment & Plan (12/18/2024 5:01 PM CDT): Held home lisinopril given MARYBETH. BP starting to trend up but given recent stroke will need brief period of permissive hypertension. -Lisinopril resumed after stabilization of creatinine, doxazosin nightly - hydral 25mg PO prn for SBP >190 Assessment & Plan (12/17/2024 2:04 PM CDT): Held home lisinopril given MARYBETH. BP starting to trend up but given recent stroke will need brief period of permissive hypertension. -Lisinopril resumed after stabilization of creatinine, doxazosin nightly - hydral 25mg PO prn for SBP >190 Assessment & Plan (12/16/2024 2:11 PM CDT): Held home lisinopril given MARYBETH. BP starting to trend up but given recent stroke will need brief period of permissive hypertension. -Lisinopril resumed after stabilization of creatinine - hydral 25mg PO prn for SBP >190 Assessment & Plan (12/15/2024 2:37 PM CDT): Held home lisinopril given MARYBETH. BP starting to trend up but given recent stroke will need brief period of permissive hypertension. -Lisinopril resumed after stabilization of creatinine - hydral 25mg PO prn for SBP >190 Assessment & Plan (12/14/2024 3:53 PM CDT): Held home lisinopril given MARYBETH. BP starting to trend up but given recent stroke will need brief period of permissive hypertension. -Lisinopril resumed after stabilization of creatinine - hydral 25mg PO prn for SBP >190 Assessment & Plan (12/13/2024 3:12 PM CDT): Held home lisinopril given MARYBETH. BP starting to trend up but given recent stroke will need brief period of permissive hypertension. -Lisinopril resumed after stabilization of creatinine - hydral 25mg PO prn for SBP >190 Assessment & Plan (12/12/2024 3:57 PM CDT): Held home lisinopril given MARYBETH. BP starting to trend up but given recent stroke will need brief period of permissive hypertension. -Lisinopril resumed after stabilization of creatinine - hydral 25mg PO prn for SBP >190 Assessment & Plan (12/11/2024 3:46 PM CDT): Held home lisinopril given MARYBETH. BP starting to trend up but given recent stroke will need brief period of permissive hypertension. -Lisinopril resumed after stabilization of creatinine - hydral 25mg PO prn for SBP >190 Assessment & Plan (12/10/2024 9:26 AM CDT): Hold home lisinopril given MARYBETH.BP starting to trend up but given recent stroke will need brief period of permissive hypertension. - hydral 25mg PO prn for SBP >190 Assessment & Plan (12/09/2024 10:21 AM CDT): Hold home lisinopril given MARYBETH.BP starting to trend up but given recent stroke will need brief period of permissive hypertension. - hydral 25mg PO prn for SBP >190 Assessment & Plan (12/08/2024 10:24 AM CDT): Hold home lisinopril given MARYBETH.BP starting to trend up but given recent stroke will need brief period of permissive hypertension. - hydral 25mg PO prn for SBP >190 Assessment & Plan (12/07/2024 9:55 AM CDT): Hold home lisinopril given MARYBETH.BP starting to trend up but given recent stroke will need brief period of permissive hypertension. - hydral 25mg PO prn for SBP >190 Assessment & Plan (12/06/2024 2:46 PM CDT): Hold home lisinopril given MARYBETH. Suspiciously his elevated Cr occurred after he received his home dose after having stable Cr prior, raising concern that maybe he was not taking the lisinopril previously? Assessment & Plan (12/05/2024 11:40 AM CDT): Hold home lisinopril given MARYBETH. Suspiciously his elevated Cr occurred after he received his home dose after having stable Cr prior, raising concern that maybe he was not taking the lisinopril previously? Assessment & Plan (12/04/2024 12:15 PM CDT): Continue home lisinopril Has received labetalol IV prn Assessment & Plan (12/03/2024 11:43 PM CDT): Continue home lisinopril Assessment & Plan (11/30/2024 5:56 PM CDT): Orders: Comprehensive metabolic panel; Future Hemoglobin A1c; Future CBC with auto differential; Future Seizure disorder 09/22/2023 Assessment & Plan (12/26/2024 1:39 PM CDT): Continue Depakote home dose 500 mg BID (verified with Neurology) Assessment & Plan (12/25/2024 3:26 PM CDT): Continue Depakote home dose 500 mg BID ( verified with Neurology) Assessment & Plan (12/24/2024 4:00 PM CDT): Continue Depakote home dose 500 mg BID ( verified with Neurology) Assessment & Plan (12/23/2024 12:30 PM CDT): Continue Depakote home dose 500 mg BID ( verified with Neurology) Assessment & Plan (12/22/2024 12:02 PM CDT): Continue Depakote home dose 500 mg BID ( verified with Neurology) Assessment & Plan (12/21/2024 6:36 PM CDT): Continue Depakote home dose 500 mg BID ( verified with Neurology) Assessment & Plan (12/20/2024 5:26 PM CDT): Continue Depakote home dose 500 mg BID ( verified with Neurology) Assessment & Plan (12/19/2024 5:56 PM CDT): Continue Depakote home dose 500 mg BID ( verified with Neurology) Assessment & Plan (12/18/2024 5:01 PM CDT): Continue Depakote Assessment & Plan (12/17/2024 2:04 PM CDT): Continue Depakote Assessment & Plan (12/16/2024 2:11 PM CDT): Continue Depakote Assessment & Plan (12/15/2024 2:37 PM CDT): Continue Depakote Assessment & Plan (12/14/2024 3:53 PM CDT): Continue Depakote Assessment & Plan (12/13/2024 3:12 PM CDT): Continue Depakote Assessment & Plan (12/12/2024 3:57 PM CDT): Continue Depakote Assessment & Plan (12/11/2024 3:46 PM CDT): Continue Depakote Assessment & Plan (12/10/2024 9:26 AM CDT): Continue Depakote Assessment & Plan (12/09/2024 10:21 AM CDT): Continue Depakote Assessment & Plan (12/08/2024 10:24 AM CDT): Continue Depakote Assessment & Plan (12/07/2024 9:55 AM CDT): Continue Depakote Assessment & Plan (12/06/2024 2:46 PM CDT): Continue Depakote Assessment & Plan (12/05/2024 10:19 AM CDT): Continue Depakote Assessment & Plan (12/04/2024 8:15 AM CDT): Continue Depakote Assessment & Plan (12/03/2024 11:43 PM CDT): Continue Depakote Assessment & Plan (11/30/2024 5:56 PM CDT): Expressive aphasia 08/31/2023 AMS (altered mental status) 08/18/2023 Assessment & Plan (12/26/2024 1:39 PM CDT): -H/O of Rt frontal stroke (residual left-sided weakness, predominantly LUE), R ICA stent placed (2016), large lt frontal arachnoid cyst and 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 -Initial stroke evaluation did not reveal acute stroke but MRI 12/05 recognized a left thalamic stroke, possibly explaining his mental status change as so far his infectious work up remains negative. LED negative for acute DVT b/l LE 12/12, NSGY signed off, no MARINE WELDER shunt malfunction. Neurology signed off, stroke work up completed, SMART consult completed. - Medications were reviewed to decrease polypharmacy in setting of somnolence. Zoloft 150mg Daily held due to somnolence; patient more awake afterwards however mental status remains fluctuating, discussed with Neurology recommended continue home dose valproic acid 500 mg b.I.d. ( per neurology assessment his mental status has been same as seen on 12/05- likely his baseline ) - Planned for 30 day event monitor on discharge (Dr. 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 -Initial stroke evaluation did not reveal acute stroke but MRI 12/05 recognized a left thalamic stroke, possibly explaining his mental status change as so far his infectious work up remains negative. LED negative for acute DVT b/l LE 12/12, NSGY signed off, no MARINE WELDER shunt malfunction. Neurology signed off, stroke work up completed, SMART consult completed. - Medications were reviewed to decrease polypharmacy in setting of somnolence. Zoloft 150mg Daily held due to somnolence; patient more awake afterwards however mental status remains fluctuating, discussed with Neurology recommended continue home dose valproic acid 500 mg b.I.d. ( per neurology assessment his mental status has been same asseen on 12/05- likely his baseline ) PLAN - Delirium precautions - will need loop recorder on discharge (Dr. 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 -Initial stroke evaluation did not reveal acute stroke but MRI 12/05 recognized a left thalamic stroke, possibly explaining his mental status change as so far his infectious work up remains negative. LED negative for acute DVT b/l LE 12/12, NSGY signed off, no MARINE WELDER shunt malfunction. Neurology signed off, stroke work up completed, SMART consult completed. - Medications were reviewed to decrease polypharmacy in setting of somnolence. Zoloft 150mg Daily held due to somnolence; patient more awake afterwards however mental status remains fluctuating, discussed with Neurology recommended continue home dose valproic acid 500 mg b.I.d. ( per neurology assessment his mental status has been same asseen on 12/05- likely his baseline ) PLAN - Delirium precautions - will need loop recorder on discharge (Dr. Daiz to follow up) - Continue ASA 81mg daily in addition to Plavix 75mg Daily (on hold for PEG on 12/17) - resumed 12/18 Assessment & Plan (12/23/2024 12:30 PM CDT): -H/O of Rt frontal stroke (residual left-sided weakness, predominantly LUE), R ICA stent placed (2016), large lt frontal arachnoid cyst and 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 -Initial stroke evaluation did not reveal acute stroke but MRI 12/05 recognized a left thalamic stroke, possibly explaining his mental status change as so far his infectious work up remains negative. LED negative for acute DVT b/l LE 12/12, NSGY signed off, no MARINE WELDER shunt malfunction. Neurology signed off, stroke work up completed, SMART consult completed. - Medications were reviewed to decrease polypharmacy in setting of somnolence. Zoloft 150mg Daily held due to somnolence; patient more awake afterwards however mental status remains fluctuating, discussed with Neurology recommended continue home dose valproic acid 500 mg b.I.d. ( per neurology assessment his mental status has been same asseen on 12/05- likely his baseline ) PLAN - Delirium precautions - will need loop recorder on discharge (Dr. Diaz to follow up) - Continue ASA 81mg daily in addition to Plavix 75mg Daily (on hold for PEG on 12/17) - resumed 12/18 Assessment & Plan (12/22/2024 12:02 PM CDT): -H/O of Rt frontal stroke (residual left-sided weakness, predominantly LUE), R ICA stent placed (2016), large lt frontal arachnoid cyst and NPH s/p placement of a lt frontal ventriculoperitoneal shunt (July 2023, Dr. Mcgill, [facility], 3), dementia, who presents with altered mental status, aphasia noted by his nursing facility from OSH. -Initial stroke evaluation did not reveal acute stroke but MRI 12/05 recognized a left thalamic stroke, possibly explaining his mental status change as so far his infectious work up remains negative. LED negative for acute DVT b/l LE 12/12, NSGY signed off, no MARINE WELDER shunt malfunction. Neurology signed off, stroke work up completed, SMART consult completed. - Medications were reviewed to decrease polypharmacy in setting of somnolence. Zoloft 150mg Daily held due to somnolence; patient more awake afterwards however mental status remains fluctuating, discussed with Neurology recommended continue home dose valproic acid 500 mg b.I.d. ( per neurology assessment his mental status has been same asseen on 12/05- likely his baseline ) PLAN - Delirium precautions - will need loop recorder on discharge (Dr. Diaz to follow up) - Continue ASA 81mg daily in addition to Plavix 75mg Daily (on hold for PEG on 12/17) - resumed 12/18 Assessment & Plan (12/21/2024 6:36 PM CDT): -H/O of Rt frontal stroke (residual left-sided weakness, predominantly LUE), R ICA stent placed (2016), large lt frontal arachnoid cyst and 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 -Initial stroke evaluation did not reveal acute stroke but MRI 12/05 recognized a left thalamic stroke, possibly explaining his mental status change as so far his infectious work up remains negative. LED negative for acute DVT b/l LE 12/12, NSGY signed off, no MARINE WELDER shunt malfunction. Neurology signed off, stroke work up completed, SMART consult completed. - Medications were reviewed to decrease polypharmacy in setting of somnolence. Zoloft 150mg Daily held due to somnolence; patient more awake afterwards however mental status remains fluctuating, discussed with Neurology recommended continue home dose valproic acid 500 mg b.I.d. ( per neurology assessment his mental status has been same asseen on 12/05- likely his baseline ) PLAN - Delirium precautions - will need loop recorder on discharge (Dr. Diaz to follow up) - Continue ASA 81mg daily in addition to Plavix 75mg Daily (on hold for PEG on 12/17) - resumed 12/18 Assessment & Plan (12/20/2024 5:26 PM CDT): -H/O of Rt frontal stroke (residual left-sided weakness, predominantly LUE), R ICA stent placed (2016), large lt frontal arachnoid cyst and 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 -Initial stroke evaluation did not reveal acute stroke but MRI 12/05 recognized a left thalamic stroke, possibly explaining his mental status change as so far his infectious work up remains negative. LED negative for acute DVT b/l LE 12/12, NSGY signed off, no MARINE WELDER shunt malfunction. Neurology signed off, stroke work up completed, SMART consult completed. - Medications were reviewed to decrease polypharmacy in setting of somnolence. Zoloft 150mg Daily held due to somnolence; patient more awake afterwards however mental status remains fluctuating, discussed with Neurology recommended continue home dose valproic acid 500 mg b.I.d. ( per neurology assessment his mental status has been same asseen on 12/05- likely his baseline ) PLAN - Delirium precautions - continue on telemetry, will need loop recorder on discharge (Dr. Diaz to follow up) - Continue ASA 81mg daily in addition to Plavix 75mg Daily (on hold for PEG on 12/17) - resumed 12/18 Assessment & Plan (12/19/2024 5:56 PM CDT): -H/O of Rt frontal stroke (residual left-sided weakness, predominantly LUE), R ICA stent placed (2016), large lt frontal arachnoid cyst and NPH s/p placement of a lt frontal ventriculoperitoneal shunt (July 2023, Dr. Mcgill, [facility], 3), dementia, who presents with altered mental status, aphasia noted by his nursing facility from OSH. -Initial stroke evaluation did not reveal acute stroke but MRI 12/05 recognized a left thalamic stroke, possibly explaining his mental status change as so far his infectious work up remains negative. LED negative for acute DVT b/l LE 12/12, NSGY signed off, no MARINE WELDER shunt malfunction. Neurology signed off, stroke work up completed, SMART consult completed. - Medications were reviewed to decrease polypharmacy in setting of somnolence. Zoloft 150mg Daily held due to somnolence; patient more awake afterwards however mental status remains fluctuating, discussed with Neurology recommended continue home dose valproic acid 500 mg b.I.d. ( per neurology assessment his mental status has been same asseen on 12/05- likely his baseline ) PLAN - Delirium precautions - continue on telemetry, will need loop recorder on discharge (Dr. Diaz to follow up) - Continue ASA 81mg daily in addition to Plavix 75mg Daily (on hold for PEG on 12/17) - resumed 12/18 Assessment & Plan (12/18/2024 5:01 PM CDT): -H/O of Rt frontal stroke (residual left-sided weakness, predominantly LUE), R ICA stent placed (2016), large lt frontal arachnoid cyst and 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 -Initial stroke evaluation did not reveal acute stroke but MRI 12/05 recognized a left thalamic stroke, possibly explaining his mental status change as so far his infectious work up remains negative. LED negative for acute DVT b/l LE 12/12, NSGY signed off, no MARINE WELDER shunt malfunction. Neurology signed off, stroke work up completed, SMART consult completed. - Medications were reviewed to decrease polypharmacy in setting of somnolence. Zoloft 150mg Daily held due to somnolence; patient more awake afterwards however mental status remains fluctuating, remained somnolent, called Neurology if valproic acid can be switched to Keppra due to ongoing AMS, awaiting further evaluation of encephalopathy. PLAN - Delirium precautions - continue on telemetry, will need loop recorder on discharge (Dr. Diaz to follow up) - Continue ASA 81mg daily in addition to Plavix 75mg Daily (on hold for PEG on 12/17) - resumed 12/18 - Follow up on further Neurology recommendations Assessment & Plan (12/17/2024 2:04 PM CDT): H/O of right frontal stroke (residual left-sided weakness, predominantly LUE), R ICA stent placed (2016), large left frontal arachnoid cyst and normal-pressure hydrocephalus status post placement of a left frontal ventriculoperitoneal shunt (July 2023, Michelle Abrams, 3), dementia, who presents with altered mental status, aphasia noted by his nursing facility from OSH. Initial stroke evaluation did not reveal acute stroke but MRI 12/05 recognized a left thalamic stroke, possibly explaining his mental status change as so far his infectious work up remains negative. LED negative for acute DVT b/l LE 12/12 - NSGY signed off, no MARINE WELDER shunt malfunction. - Neurology signed off. - stroke work up completed - SMART consult completed - continue on telemetry, will need loop recorder on discharge (Dr. Diaz to follow up) - Medications were reviewed to decrease polypharmacy in setting of somnolence. Zoloft 150mg Daily held due to somnolence; patient more awake afterwards however mental status remains fluctuating. - Continue ASA 81mg daily in addition to Plavix 75mg Daily (on hold for PEG on 12/17) Assessment & Plan (12/16/2024 2:11 PM CDT): H/O of right frontal stroke (residual left-sided weakness, predominantly LUE), R ICA stent placed (2016), large left frontal arachnoid cyst and normal-pressure hydrocephalus status post placement of a left frontal ventriculoperitoneal shunt (July 2023, Michelle Abrams, 3), dementia, who presents with altered mental status, aphasia noted by his nursing facility from OSH. Initial stroke evaluation did not reveal acute stroke but MRI 12/05 recognized a left thalamic stroke, possibly explaining his mental status change as so far his infectious work up remains negative. LED negative for acute DVT b/l LE 12/12 - NSGY signed off, no MARINE WELDER shunt malfunction. - Neurology signed off. - stroke work up completed - SMART consult completed - continue on telemetry, will need loop recorder on discharge (Dr. Diaz to follow up) - Medications were reviewed to decrease polypharmacy in setting of somnolence. Zoloft 150mg Daily held due to somnolence; patient more awake afterwards however mental status remains fluctuating. - Continue ASA 81mg daily in addition to Plavix 75mg Daily (on hold for PEG on 12/17) Assessment & Plan (12/15/2024 2:37 PM CDT): H/O of right frontal stroke (residual left-sided weakness, predominantly LUE), R ICA stent placed (2016), large left frontal arachnoid cyst and normal-pressure hydrocephalus status post placement of a left frontal ventriculoperitoneal shunt (July 2023, Michelle Abrams, 3), dementia, who presents with altered mental status, aphasia noted by his nursing facility from OSH. Initial stroke evaluation did not reveal acute stroke but MRI 12/05 recognized a left thalamic stroke, possibly explaining his mental status change as so far his infectious work up remains negative. LED negative for acute DVT b/l LE 12/12 - NSGY signed off, no MARINE WELDER shunt malfunction. - Neurology signed off. - stroke work up completed - SMART consult completed - continue on telemetry, will need loop recorder on discharge (Dr. Diaz to follow up) - Medications were reviewed to decrease polypharmacy in setting of somnolence. Zoloft 150mg Daily held due to somnolence; patient more awake afterwards however mental status remains fluctuating. - Continue ASA 81mg daily in addition to Plavix 75mg Daily (on hold for PEG on 12/17) Assessment & Plan (12/14/2024 3:53 PM CDT): H/O of right frontal stroke (residual left-sided weakness, predominantly LUE), R ICA stent placed (2016), large left frontal arachnoid cyst and normal-pressure hydrocephalus status post placement of a left frontal ventriculoperitoneal shunt (July 2023, Michelle Abrams, 3), dementia, who presents with altered mental status, aphasia noted by his nursing facility from OSH. Initial stroke evaluation did not reveal acute stroke but MRI 12/05 recognized a left thalamic stroke, possibly explaining his mental status change as so far his infectious work up remains negative. LED negative for acute DVT b/l LE 12/12 - NSGY signed off, no MARINE WELDER shunt malfunction. - Neurology signed off. - stroke work up completed - SMART consult completed - continue on telemetry, will need loop recorder on discharge (Dr. Diaz to follow up) - Medications were reviewed to decrease polypharmacy in setting of somnolence. Zoloft 150mg Daily held due to somnolence; patient more awake afterwards. - Continue ASA 81mg daily in addition to Plavix 75mg Daily (on hold for PEG on 12/17) Assessment & Plan (12/13/2024 3:12 PM CDT): H/O of right frontal stroke (residual left-sided weakness, predominantly LUE), R ICA stent placed (2016), large left frontal arachnoid cyst and normal-pressure hydrocephalus status post placement of a left frontal ventriculoperitoneal shunt (July 2023, Michelle Abrams, 3), dementia, who presents with altered mental status, aphasia noted by his nursing facility from OSH. Initial stroke evaluation did not reveal acute stroke but MRI 12/05 recognized a left thalamic stroke, possibly explaining his mental status change as so far his infectious work up remains negative. LED negative for acute DVT b/l LE 12/12 - NSGY signed off, no MARINE WELDER shunt malfunction. - Neurology signed off. - stroke work up completed - SMART consult completed - continue on telemetry, will need loop recorder on discharge (Dr. Diaz to follow up) - Continue ASA 81mg daily in addition to Plavix 75mg Daily (on hold for PEG on 12/17) Assessment & Plan (12/12/2024 3:57 PM CDT): H/O of right frontal stroke (residual left-sided weakness, predominantly LUE), R ICA stent placed (2016), large left frontal arachnoid cyst and normal-pressure hydrocephalus status post placement of a left frontal ventriculoperitoneal shunt (July 2023, Michelle Abrams, 3), dementia, who presents with altered mental status, aphasia noted by his nursing facility from OSH. Initial stroke evaluation did not reveal acute stroke but MRI 12/05 recognized a left thalamic stroke, possibly explaining his mental status change as so far his infectious work up remains negative. LED negative for acute DVT b/l LE 12/12 - NSGY signed off, no MARINE WELDER shunt malfunction. - Neurology signed off. - stroke work up completed - SMART consult completed - continue on telemetry, will need loop recorder on discharge (Dr. Diaz to follow up) - Continue ASA 81mg daily in addition to Plavix 75mg Daily (on hold for PEG on 12/17) Assessment & Plan (12/11/2024 3:46 PM CDT): H/O of right frontal stroke (residual left-sided weakness, predominantly LUE), R ICA stent placed (2016), large left frontal arachnoid cyst and normal-pressure hydrocephalus status post placement of a left frontal ventriculoperitoneal shunt (July 2023, Michelle Abrams, 3), dementia, who presents with altered mental status, aphasia noted by his nursing facility from OSH. Initial stroke evaluation did not reveal acute stroke but MRI 12/05 recognized a left thalamic stroke, possibly explaining his mental status change as so far his infectious work up remains negative - NSGY signed off, no MARINE WELDER shunt malfunction. - Neurology signed off. - stroke work up completed - SMART consult completed - continue on telemetry, will need loop recorder on discharge (Dr. Diaz to follow up) - Continue ASA 81mg daily in addition to Plavix 75mg Daily (on hold for PEG on 12/17) Assessment & Plan (12/10/2024 9:26 AM CDT): H/O of right frontal stroke (residual left-sided weakness, predominantly LUE), R ICA stent placed (2017), large left frontal arachnoid cyst and normal-pressure hydrocephalus status post placement of a left frontal ventriculoperitoneal shunt (July 2023, Michelle Abrams, 3), dementia, who presents with altered mental status, aphasia noted by his nursing facility from OSH. Initial stroke evaluation did not reveal acute stroke but MRI done today, which is more sensitive, recognized a left thalamic stroke, possibly explaining his mental status change as so far his infectious work up remains negative - NSGY signed off, no MARINE WELDER shunt malfunction. - Neurology signed off. - stroke work up completed - SMART consult completed - continue on telemetry, will need loop recorder on discharge (Dr. Diaz to follow up) - Continue ASA 81mg daily in addition to Plavix 75mg Daily Assessment & Plan (12/09/2024 10:21 AM CDT): H/O of right frontal stroke (residual left-sided weakness, predominantly LUE), R ICA stent placed (2017), large left frontal arachnoid cyst and normal-pressure hydrocephalus status post placement of a left frontal ventriculoperitoneal shunt (July 2023, Michelle Abrams, 3), dementia, who presents with altered mental status, aphasia noted by his nursing facility from OSH. Initial stroke evaluation did not reveal acute stroke but MRI done today, which is more sensitive, recognized a left thalamic stroke, possibly explaining his mental status change as so far his infectious work up remains negative - NSGY signed off, no MARINE WELDER shunt malfunction. - Neurology signed off. - stroke work up completed - SMART consult completed - continue on telemetry, will need loop recorder on discharge (Dr. Diaz to follow up) - Continue ASA 81mg daily in addition to Plavix 75mg Daily Assessment & Plan (12/08/2024 10:24 AM CDT): H/O of right frontal stroke (residual left-sided weakness, predominantly LUE), R ICA stent placed (2017), large left frontal arachnoid cyst and normal-pressure hydrocephalus status post placement of a left frontal ventriculoperitoneal shunt (July 2023, Michelle Abrams, 3), dementia, who presents with altered mental status, aphasia noted by his nursing facility from OSH. Initial stroke evaluation did not reveal acute stroke but MRI done today, which is more sensitive, recognized a left thalamic stroke, possibly explaining his mental status change as so far his infectious work up remains negative - NSGY signed off, no MARINE WELDER shunt malfunction. - Neurology signed off. - stroke work up completed - SMART consult completed - continue on telemetry, will need loop recorder on discharge (Dr. Diaz to follow up) - Continue ASA 81mg daily in addition to Plavix 75mg Daily Assessment & Plan (12/07/2024 10:15 AM CDT): H/O of right frontal stroke (residual left-sided weakness, predominantly LUE), R ICA stent placed (2017), large left frontal arachnoid cyst and normal-pressure hydrocephalus status post placement of a left frontal ventriculoperitoneal shunt (July 2023, Michelle Abrams, 3), dementia, who presents with altered mental status, aphasia noted by his nursing facility from OSH. Initial stroke evaluation did not reveal acute stroke but MRI done today, which is more sensitive, recognized a left thalamic stroke, possibly explaining his mental status change as so far his infectious work up remains negative - NSGY signed off, no MARINE WELDER shunt malfunction. - Neurology consulted - complete stroke work up completed - SMART consult completed - continue on telemetry, will need loop recorder on discharge (Dr. Diaz to follow up) - Continue ASA 81mg daily in addition to Plavix 75mg Daily Assessment & Plan (12/06/2024 2:46 PM CDT): H/O of right frontal stroke (residual left-sided weakness, predominantly LUE), R ICA stent placed (2017), large left frontal arachnoid cyst and normal-pressure hydrocephalus status post placement of a left frontal ventriculoperitoneal shunt (July 2023, Michelle Abrams, 3), dementia, who presents with altered mental status, aphasia noted by his nursing facility from OSH. Initial stroke evaluation did not reveal acute stroke but MRI done today, which is more sensitive, recognized a left thalamic stroke, possibly explaining his mental status change as so far his infectious work up remains negative - Neurology consulted - complete stroke work up - SMART consult - continue on telemetry - Started ASA. -Neurosurgery consulted, low concern for shunt failure and to evaluate for metabolic causes. Recommended MRI brain tumor Assessment & Plan (12/05/2024 11:40 AM CDT): H/O of right frontal stroke (residual left-sided weakness, predominantly LUE), R ICA stent placed (2016), large left frontal arachnoid cyst and normal-pressure hydrocephalus status post placement of a left frontal ventriculoperitoneal shunt (July 2023, Michelle Abrams, 3), dementia, who presents with altered mental status, aphasia noted by his nursing facility from OSH. Initial stroke evaluation did not reveal acute stroke but MRI done today, which is more sensitive, recognized a left thalamic stroke, possibly explaining his mental status change as so far his infectious work up has been negative. - Neurology consulted - complete stroke work up - SMART consult - continue on telemetry - clarify with NSGY regarding ASA indication for R ICA stent -Neurosurgery consulted, low concern for shunt failure and to evaluate for metabolic causes. Recommended MRI brain tumor - discontinue Abx given negative cultures. Assessment & Plan (12/04/2024 12:15 PM CDT): H/O of right frontal stroke (residual left-sided weakness, predominantly LUE), large left frontal arachnoid cyst and normal-pressure hydrocephalus status post placement of a left frontal ventriculoperitoneal shunt (July 2023, Michelle Abrams, 3), type 2 diabetes, hypertension, dementia, who presents with 1 day history of altered mental status , Aphasia noted by his nursing facility from OSH. On exam, the patient was wide awake, not lethargic, oriented x1, having significant word-finding difficulties but otherwise no focal motor or sensory deficits. In discussion with the family, his LUE has been contracted since right frontal stroke. He is incontinent at baseline. CXR showed right midlung and right upper lobe that may represent a superimposed pneumonia versus subsegmental atelectasis. numerous benign calcified pulmonary nodules. Ventricular peritoneal shunt catheter courses of the left hemithorax and the left neck. No pleural effusion. No pulmonary edema. There is some apparent lytic change or lytic osseous lesion mimicking abnormality at the left glenoid. CTA Stroke showed No acute intracranial hemorrhage. No new large territory edematous infarct. Multifocal intracranial and extracranial atherosclerotic disease, with some progression of P2 today. Patent right internal carotid stent. Mild narrowing of left internal carotid, unchanged. Basic labs: CBC, CMP, Mg, Phos, NH3, POCT glucose normal, lactic acidosis 4.1. repeat lactate 2.3. - Toxin labs: UDS pending , EtOH level normal - Metabolic labs: Vitamin B1 pending, Vitamin B12 normal, TSH with reflex to fT4 normal --RPP, negative , HIV, RPR negative - EKG NSR - UA positive for UTI -Neurosurgery consulted, low concern for shunt failure and to evaluate for metabolic causes. Recommended MRI brain tumor -Neurology consulted, less c/f acute stroke Impression : AMS likely secondary to UTI/toxic metabolic encephalopathy Plan: Follow urine culture Follow blood cultures Continue IV antibiotics UDS , B1 level pending Follow up MRI brain tumor with and without contrast Continue Plavix [employer]OR [employer]S MANAGEMENT eval Fall precautions PT OT Delirium precautions Assessment & Plan (12/04/2024 5:08 AM CDT): H/O of right frontal stroke (residual left-sided weakness, predominantly LUE), large left frontal arachnoid cyst and normal-pressure hydrocephalus status post placement of a left frontal ventriculoperitoneal shunt (July 2023, Dr. Mcgill, [facility], 3), type 2 diabetes, hypertension, dementia, who presents with 1 day history of altered mental status , Aphasia noted by his nursing facility from OSH. On exam, the patient was wide awake, not lethargic, oriented x1, having significant word-finding difficulties but otherwise no focal motor or sensory deficits. In discussion with the family, his LUE has been contracted since right frontal stroke. He is incontinent at baseline. CXR showed right midlung and right upper lobe that may represent a superimposed pneumonia versus subsegmental atelectasis. numerous benign calcified pulmonary nodules. Ventricular peritoneal shunt catheter courses of the left hemithorax and the left neck. No pleural effusion. No pulmonary edema. There is some apparent lytic change or lytic osseous lesion mimicking abnormality at the left glenoid. CTA Stroke showed No acute intracranial hemorrhage. No new large territory edematous infarct. Multifocal intracranial and extracranial atherosclerotic disease, with some progression of P2 today. Patent right internal carotid stent. Mild narrowing of left internal carotid, unchanged. Basic labs: CBC, CMP, Mg, Phos, NH3, POCT glucose normal, lactic acidosis 4.1 - Toxin labs: UDS pending , EtOH level normal - Metabolic labs: Vitamin B1 pending, Vitamin B12 normal, TSH with reflex to fT4 normal --RPP, negative , HIV, RPR negative - EKG NSR - UA positive for UTI -Neurosurgery consulted, low concern for shunt failure and to evaluate for metabolic causes. Recommended MRI brain tumor -Neurology consulted Impression : AMS secondary to UTI Plan Follow urine culture Follow blood cultures Continue IV antibiotics UDS , B1 level pending Follow up MRI brain tumor with and without contrast Continue Plavix [employer]NAGEMENT eval Fall precautions PT OT Delirium precautions Arachnoid cyst 08/05/2023 Gait disturbance 06/02/2023 Assessment [...] middle cerebral artery (M CA) stroke 08/01/2020 Other dysphagia 09/17/2019 Assessment & Plan (12/26/2024 1:39 PM CDT): Dysphagia in setting of stroke. [employer]S MANAGEMENT re-evaluation on 12/10 with evidence of aspiration and recommended PO for pleasure only, Pureed. Plan discussed with over the phone and she agreed for PEG tube. IR consulted for PEG tube 12/11. Plavix needs to be held for 5 days; so IR planning to do PEG on Monday 12/18 (may restart immediately following the procedure). In the interim NG tube was placed 12/12 for feeds. Patient pulled out his NG tube overnight 12/13. New NG tube was placed (with mittens on) and removed on 12/19. - Pt had loose stools 9/5 did not tolerate tube feeds, RD adjusted tube feeds, currently on 30 mL, no episodes of diarrhea so far. - Tolerating Glucerna well. Plan to cyclic tube feeds from tonight. - Continue [employer]OR OF [employer] MANAGEMENT eval at facility. Assessment & Plan (12/25/2024 3:26 PM CDT): Dysphagia in setting of stroke. [employer]S MANAGEMENT re-evaluation on 12/10 with evidence of aspiration and recommended PO for pleasure only, Pureed. Plan discussed with over the phone and she agreed for PEG tube. IR consulted for PEG tube 12/11. Plavix needs to be held for 5 days; so IR planning to do PEG on Monday 12/18 (may restart immediately following the procedure). In the interim NG tube was placed 12/12 for feeds. Patient pulled out his NG tube overnight 12/13. New NG tube was placed (with mittens on) and removed on 12/19. - Pt had loose stools 9/5 did not tolerate tube feeds, RD adjusted tube feeds, currently on 30 mL, no episodes of diarrhea so far. PLAN - PEG tube placed by IR 12/18 - RD following for TFs, - Monitor electrolytes, continue maintenance IV fluids - PT/OT recommended LTC SNF; Assessment & Plan (12/24/2024 4:00 PM CDT): Dysphagia in setting of stroke. [employer]NAGEMENT re-evaluation on 12/10 with evidence of aspiration and recommended PO for pleasure only, Pureed. Plan discussed with over the phone and she agreed for PEG tube. IR consulted for PEG tube 12/11. Plavix needs to be held for 5 days; so IR planning to do PEG on Monday 12/18 (may restart immediately following the procedure). In the interim NG tube was placed 12/12 for feeds. Patient pulled out his NG tube overnight 12/13. New NG tube was placed (with mittens on) and removed on 12/19. - Pt had loose stools 9/5 did not tolerate tube feeds, RD adjusted tube feeds, currently on 30 mL, no episodes of diarrhea so far. PLAN - PEG tube placed by IR 12/18 - following for TFs, - Monitor electrolytes, continue maintenance IV fluids - PT/OT recommended LTC SNF; Assessment & Plan (12/23/2024 12:30 PM CDT): Dysphagia in setting of stroke. [employer]NAGEMENT re-evaluation on 12/10 with evidence of aspiration and recommended PO for pleasure only, Pureed. Plan discussed with over the phone and she agreed for PEG tube. IR consulted for PEG tube 12/11. Plavix needs to be held for 5 days; so IR planning to do PEG on Monday 12/18 (may restart immediately following the procedure). In the interim NG tube was placed 12/12 for feeds. Patient pulled out his NG tube overnight 12/13. New NG tube was placed (with mittens on) and removed on 12/19. - Pt had loose stools 9/5 did not tolerate tube feeds, RD adjusted tube feeds, currently on 30 mL, no episodes of diarrhea so far. PLAN - PEG tube placed by IR 12/18 - following for TFs, - Monitor electrolytes, continue maintenance IV fluids - PT/OT recommended LTC SNF; Assessment & Plan (12/22/2024 12:02 PM CDT): Dysphagia in setting of stroke. [employer]NAGEMENT re-evaluation on 12/10 with evidence of aspiration and recommended PO for pleasure only, Pureed. Plan discussed with over the phone and she agreed for PEG tube. IR consulted for PEG tube 12/11. Plavix needs to be held for 5 days; so IR planning to do PEG on Monday 12/18 (may restart immediately following the procedure). In the interim NG tube was placed 12/12 for feeds. Patient pulled out his NG tube overnight 12/13. New NG tube was placed (with mittens on) and removed on 12/19. - Pt had loose stools 9/5 did not tolerate tube feeds, RD adjusted tube feeds, currently on 30 mL, no episodes of diarrhea so far. PLAN - PEG tube placed by IR 12/18 - following for TFs, - Monitor electrolytes, continue maintenance IV fluids - PT/OT recommended LTC SNF; Assessment & Plan (12/21/2024 6:36 PM CDT): Dysphagia in setting of stroke. [employer]NAGEMENT re-evaluation on 12/10 with evidence of aspiration and recommended PO for pleasure only, Pureed. Plan discussed with over the phone and she agreed for PEG tube. IR consulted for PEG tube 12/11. Plavix needs to be held for 5 days; so IR planning to do PEG on Monday 12/18 (may restart immediately following the procedure). In the interim NG tube was placed 12/12 for feeds. Patient pulled out his NG tube overnight 12/13. New NG tube was placed (with mittens on) and removed on 12/19. - Pt Has been having loose stools since yesterday, where incontinent, did not tolerate tube feeds, we will discuss with dietary to go down on goal. PLAN - PEG tube placed by IR 12/18 - following for TFs, - Monitor electrolytes, continue maintenance IV fluids - PT/OT recommended LTC SNF; Assessment & Plan (12/20/2024 5:26 PM CDT): Dysphagia in setting of stroke. [employer]NAGEMENT re-evaluation on 12/10 with evidence of aspiration and recommended PO for pleasure only, Pureed. Plan discussed with over the phone and she agreed for PEG tube. IR consulted for PEG tube 12/11. Plavix needs to be held for 5 days; so IR planning to do PEG on Monday 12/18 (may restart immediately following the procedure). In the interim NG tube was placed 12/12 for feeds. Patient pulled out his NG tube overnight 12/13. New NG tube was placed (with mittens on) and removed on 12/19. PLAN - PEG tube placed by IR 12/18 - following for TFs, TF Tolerated well, currently at goal - Monitor electrolytes, continue maintenance IV fluids - PT/OT recommended LTC SNF; Assessment & Plan (12/19/2024 5:56 PM CDT): Dysphagia in setting of stroke. [employer]NAGEMENT re-evaluation on 12/10 with evidence of aspiration and recommended PO for pleasure only, Pureed. Plan discussed with over the phone and she agreed for PEG tube. IR consulted for PEG tube 12/11. Plavix needs to be held for 5 days; so IR planning to do PEG on Monday 12/18 (may restart immediately following the procedure). In the interim NG tube was placed 12/12 for feeds. Patient pulled out his NG tube overnight 12/13. New NG tube was placed (with mittens on) and feeds were resumed. Patient kept NPO for PEG placement. PLAN - PEG tube placed by IR 12/18 - following for TFs, - Monitor electrolytes, continue maintenance IV fluids - PT/OT recommended LTC SNF; discharge likely Tuesday if TF goal rate achieved Assessment & Plan (12/18/2024 5:01 PM CDT): Dysphagia in setting of stroke. [employer]NAGEMENT re-evaluation on 12/10 with evidence of aspiration and recommended PO for pleasure only, Pureed. Plan discussed with over the phone and she agreed for PEG tube. IR consulted for PEG tube 12/11. Plavix needs to be held for 5 days; so IR planning to do PEG on Monday 12/18 (may restart immediately following the procedure). In the interim NG tube was placed 12/12 for feeds. Patient pulled out his NG tube overnight 12/13. New NG tube was placed (with mittens on) and feeds were resumed. Patient kept NPO for PEG placement. PLAN - PEG tube placed by IR 12/18 - following for TFs, likely start tube feeds tomorrow after clearance from radiology - Monitor electrolytes, continue maintenance IV fluids - PT/OT recommended LTC SNF; discharge likely Tuesday if TF goal rate achieved Assessment & Plan (12/17/2024 2:04 PM CDT): Dysphagia in setting of stroke. [employer]S MANAGEMENT re-evaluation on 12/10 with evidence of aspiration and recommended PO for pleasure only, Pureed. Plan discussed with over the phone and she agreed for PEG tube. IR consulted for PEG tube 12/11. Plavix needs to be held for 5 days; so IR planning to do PEG on Monday 12/18 (may restart immediately following the procedure). In the interim NG tube was placed 12/12 for feeds. Patient pulled out his NG tube overnight 12/13. New NG tube was placed (with mittens on) and feeds were resumed. Patient will be NPO midnight for PEG placement tomorrow by IR - RD following for TFs. Continue tube feeds for now. - Electrolyte replenishment to keep magnesium more than 2, phosphorus more than 3, potassium more than 4 - Maintenance IVF discontinued - PT/OT recommended LTC SNF; discharge likely Tuesday if TF goal rate achieved Assessment & Plan (12/16/2024 2:11 PM CDT): Dysphagia in setting of stroke. [employer]NAGEMENT re-evaluation on 12/10 with evidence of aspiration and recommended PO for pleasure only, Pureed. Plan discussed with over the phone and she agreed for PEG tube. IR consulted for PEG tube 12/11. Plavix needs to be held for 5 days; so IR planning to do PEG on Monday 12/18. In the interim NG tube was placed 12/12 for feeds. Patient pulled out his NG tube overnight 12/13. New NG tube was placed (with mittens on) and feeds were resumed. - RD following for TFs. Continue tube feeds for now. - Electrolyte replenishment to keep magnesium more than 2, phosphorus more than 3, potassium more than 4 - Maintenance IVF discontinued - PT/OT recommended LTC SNF; discharge likely Tuesday if TF goal rate achieved Assessment & Plan (12/15/2024 2:37 PM CDT): Dysphagia in setting of stroke. [employer]S MANAGEMENT re-evaluation on 12/10 with evidence of aspiration and recommended PO for pleasure only, Pureed. Plan discussed with over the phone and she agreed for PEG tube. IR consulted for PEG tube 12/11. Plavix needs to be held for 5 days; so IR planning to do PEG on Monday 12/18. In the interim NG tube was placed 12/12 for feeds. Patient pulled out his NG tube overnight 12/13. New NG tube was placed (with mittens on) and feeds were resumed. - RD following for TFs. Continue tube feeds. - Electrolyte replenishment to keep magnesium more than 2, phosphorus more than 3, potassium more than 4 - Maintenance IVF discontinued - PT/OT recommended LTC SNF. Assessment & Plan (12/14/2024 3:53 PM CDT): Dysphagia in setting of stroke. [employer]S MANAGEMENT re-evaluation on 12/10 with evidence of aspiration and recommended PO for pleasure only, Pureed. Plan discussed with over the phone and she agreed for PEG tube. IR consulted for PEG tube 12/11. Plavix needs to be held for 5 days; so IR planning to do PEG on Monday 12/18. In the interim NG tube was placed 12/12 for feeds. Patient pulled out his NG tube overnight 12/13. New NG tube was placed (with mittens on) and feeds were resumed. - RD following for TFs - Electrolyte replenishment to keep magnesium more than 2, phosphorus more than 3, potassium more than 4 - Maintenance IVF discontinued - PT/OT recommended LTC SNF. Assessment & Plan (12/13/2024 3:12 PM CDT): Dysphagia in setting of stroke. [employer]S MANAGEMENT re-evaluation on 12/10 with evidence of aspiration and recommended PO for pleasure only, Pureed. Discussed with over the phone and she agreed for PEG tube. IR consulted for PEG tube 12/11. Plavix needs to be held for 5 days; so IR planning to do PEG on Monday 12/18. In the interim NG tube was placed 12/12 for feeds. Patient pulled out his NG tube overnight 12/13. New NG tube was placed (with mittens on) and feeds were resumed. - RD following for TFs - Maintenance IVF discontinued - PT/OT recommended LTC SNF. Assessment & Plan (12/12/2024 3:57 PM CDT): Dysphagia in setting of stroke. [employer]S MANAGEMENT re-evaluation on 12/10 with evidence of aspiration and recommended PO for pleasure only, Pureed. Discussed with over the phone and she agreed for PEG tube. IR consulted for PEG tube 12/11. Plavix needs to be held for 5 days; so IR planning to do PEG on Monday 12/18. In the interim NG tube was placed today 12/12 for feeds. - RD following for TFs - Maintenance IVF discontinued - PT/OT recommended LTC SNF. Assessment & Plan (12/11/2024 3:46 PM CDT): Dysphagia in setting of stroke. [employer]S MANAGEMENT re-evaluation on 12/10 with evidence of aspiration and recommended PO for pleasure only, Pureed. Discussed with over the phone and she agreed for PEG tube. IR consulted for PEG tube 12/11. Plavix needs to be held for 5 days; so IR planning to do PEG on Sunday 12/17. Meanwhile plan to get Dobhoff in the interim. - RD following - Maintenance IVF - PT/OT recommended SNF. Assessment & Plan (12/10/2024 9:26 AM CDT): Will return to NPO except for purees with meds given coughing episodes with meals. [employer]OR [employer]ERIALS MANAGEMENT plans for re-evaluation on 12/10. - [employer]NAGEMENT following - plan for modified barium study on 12/10 - following - need to discuss nutritional goals with family. - D5LR IVF - CXR 12/08 without consolidations, reassuring against aspiration pna Assessment & Plan (12/09/2024 10:21 AM CDT): Will return to NPO except for purees with meds given coughing episodes with meals. [employer]S MANAGEMENT plans for re-evaluation on 12/10. - [employer]NAGEMENT following - plan for modified barium study on 12/10 - following - need to discuss nutritional goals with family. - D5LR IVF - CXR 12/08 without consolidations, reassuring against aspiration pna Assessment & Plan (12/08/2024 10:24 AM CDT): Transitioned from NPO to pureed diet at the moment. [employer]S MANAGEMENT plans for re-evaluation on 12/10. - [employer] MANAGEMENT following - plan for modified barium study on 12/10 - following - need to discuss nutritional goals with family. - D5LR IVF Assessment & Plan (12/07/2024 9:55 AM CDT): Transitioned from NPO to pureed diet at the moment. [employer]ERIALS MANAGEMENT plans for re-evaluation on 12/10. - DIRECTOR OF [employer]ERIALS MANAGEMENT following - RD following - D5LR IVF Sensorineural hearing loss (SNHL) of both ears 1 Assessment & Plan (11/30/2024 5:56 PM CDT): Hard of hearing. Does not have any hearing aids. Able to hear if speaks loudly. BPH (benign prostatic hyperplasia) 08/09/2017 Assessment & Plan (12/26/2024 1:39 PM CDT): Has urinary incontinence at baseline - Hold Flomax, finasteride as unable to take meds and these medications can not be crushed. Doxazosin and finasteride per NG tube - Schuster was placed, failed TOV, schuster placed back 12/12; OP urology referral, plan to discharge on Schuster. Assessment & Plan (12/25/2024 3:26 PM CDT): Has urinary incontinence at baseline - Hold Flomax, finasteride as unable to take meds and these medications can not be crushed. Doxazosin and finasteride per NG tube - Schuster was placed, failed TOV, schuster placed back 12/12; OP urology referral Assessment & Plan (12/24/2024 4:00 PM CDT): Has urinary incontinence at baseline - Hold Flomax, finasteride as unable to take meds and these medications can not be crushed. Doxazosin and finasteride per NG tube - Schuster was placed, failed TOV, schuster placed back 12/12; OP urology referral Assessment & Plan (12/23/2024 12:30 PM CDT): Has urinary incontinence at baseline - Hold Flomax, finasteride as unable to take meds and these medications can not be crushed. Doxazosin and finasteride per NG tube - Schuster was placed, failed TOV, schuster placed back 12/12; OP urology referral Assessment & Plan (12/22/2024 12:02 PM CDT): Has urinary incontinence at baseline - Hold Flomax, finasteride as unable to take meds and these medications can not be crushed. Doxazosin and finasteride per NG tube - Schuster was placed, failed TOV, schuster placed back 12/12; OP urology referral Assessment & Plan (12/21/2024 6:36 PM CDT): Has urinary incontinence at baseline - Hold Flomax, finasteride as unable to take meds and these medications can not be crushed. Doxazosin and finasteride per NG tube - Schuster was placed, failed TOV, schuster placed back 12/12; OP urology referral Assessment & Plan (12/20/2024 5:26 PM CDT): Has urinary incontinence at baseline - Hold Flomax, finasteride as unable to take meds and these medications can not be crushed. Doxazosin and finasteride per NG tube - Schuster was placed, failed TOV, schuster placed back 12/12; OP urology referral Assessment & Plan (12/19/2024 5:56 PM CDT): Has urinary incontinence at baseline - Hold Flomax, finasteride as unable to take meds and these medications can not be crushed. Doxazosin and finasteride per NG tube - Schuster was placed, failed TOV, schuster placed back 12/12; OP urology referral Assessment & Plan (12/18/2024 5:01 PM CDT): Has urinary incontinence at baseline - Hold Flomax, finasteride as unable to take meds and these medications can not be crushed. Doxazosin and finasteride per NG tube - Schuster was placed, failed TOV, schuster placed back 12/12; OP urology referral Assessment & Plan (12/17/2024 2:04 PM CDT): Has urinary incontinence at baseline - Hold Flomax, finasteride as unable to take meds and these medications can not be crushed. Doxazosin and finasteride per NG tube - Schuster was placed, failed TOV, schuster placed back 12/12; OP urology referral Assessment & Plan (12/16/2024 2:11 PM CDT): Has urinary incontinence at baseline - Hold Flomax, finasteride as unable to take meds and these medications can not be crushed. Doxazosin and finasteride per NG tube - Schuster was placed, failed TOV, schuster placed back 12/12; OP urology referral Assessment & Plan (12/15/2024 2:37 PM CDT): Has urinary incontinence at baseline - Hold Flomax, finasteride as unable to take meds and these medications can not be crushed. Doxazosin and finasteride per NG tube - Schuster was placed, failed TOV, schuster placed back 12/12; OP urology referral Assessment & Plan (12/14/2024 3:53 PM CDT): Has urinary incontinence at baseline - Hold Flomax, finasteride as unable to take meds and these medications can not be crushed. Doxazosin and finasteride per NG tube - Schuster was placed, failed TOV, schuster placed back 12/12; OP urology referral Assessment & Plan (12/13/2024 3:12 PM CDT): Has urinary incontinence at baseline - Hold Flomax, finasteride as unable to take meds and these medications can not be crushed. Doxazosin and finasteride per NG tube - Schuster was placed, failed TOV, schuster placed back 12/12; OP urology referral Assessment & Plan (12/12/2024 4:00 PM CDT): Has urinary incontinence at baseline - Hold Flomax, finasteride as unable to take meds and these medications can not be crushed. Doxazosin and finasteride per NG tube - Schuster was placed, failed TOV, schuster placed back 12/12; OP urology referral Assessment & Plan (12/11/2024 3:46 PM CDT): Has urinary incontinence at baseline - Hold Flomax, finasteride as unable to take meds and these medications can not be crushed. - Now with schuster, TOV today 12/11 Assessment & Plan (12/10/2024 9:26 AM CDT): Has urinary incontinence at baseline - Hold Flomax, finasteride as unable to take meds and these medications can not be crushed. - Now with schuster, evaluate daily to determine when to remove. Assessment & Plan (12/09/2024 10:21 AM CDT): Has urinary incontinence at baseline - Hold Flomax, finasteride as unable to take meds and these medications can not be crushed. - Now with schuster, evaluate daily to determine when to remove. Assessment & Plan (12/08/2024 10:24 AM CDT): Has urinary incontinence at baseline - Hold Flomax, finasteride as unable to take meds and these medications can not be crushed. - Now with schuster, evaluate daily to determine when to remove. Assessment & Plan (12/07/2024 9:55 AM CDT): Has urinary incontinence at baseline - Hold Flomax, finasteride as unable to take meds and these medications can not be crushed. - Now with schuster, evaluate daily to determine when to remove. Assessment & Plan (12/06/2024 2:46 PM CDT): Has urinary incontinence at baseline - Continue Flomax, finasteride - Now with schuster, evaluate daily to determine when to remove. Assessment & Plan (12/05/2024 11:40 AM CDT): Has urinary incontinence at baseline - Continue Flomax, finasteride - Now with schuster, evaluate daily to determine when to remove. Assessment & Plan (12/04/2024 12:15 PM CDT): Has urinary incontinence at baseline Continue Flomax, finasteride Now with schuster Assessment & Plan (12/03/2024 11:43 PM CDT): Has urinary incontinence at baseline Continue Flomax, finasteride Assessment & Plan (11/30/2024 5:56 PM CDT): [...] use of insulin 04/24/2017 Assessment & Plan (12/26/2024 1:39 PM CDT): A1C 8.4 ISS; Patient's BGMs elevated; long-acting insulin added. Plan to discharge on 5 units nightly long-acting and sliding scale q.4 hours Assessment & Plan (12/25/2024 3:26 PM CDT): A1C 8.4 ISS; Patient's BGMs elevated; long-acting insulin added. Assessment & Plan (12/24/2024 4:00 PM CDT): A1C 8.4 ISS; Patient's BGMs elevated; long-acting insulin added. Assessment & Plan (12/23/2024 12:30 PM CDT): A1C 8.4 ISS; Patient's BGMs elevated; long-acting insulin added. Assessment & Plan (12/22/2024 12:02 PM CDT): A1C 8.4 ISS; Patient's BGMs elevated; long-acting insulin added. Assessment & Plan (12/21/2024 6:36 PM CDT): A1C 8.4 ISS; Patient's BGMs elevated; long-acting insulin added. Assessment & Plan (12/20/2024 5:26 PM CDT): A1C 8.4 ISS; Patient's BGMs elevated; long-acting insulin added. Assessment & Plan (12/19/2024 5:56 PM CDT): A1C 8.4 ISS; Patient's BGMs elevated; long-acting insulin added. Assessment & Plan (12/18/2024 5:01 PM CDT): A1C 8.4 ISS; Patient's BGMs elevated; long-acting insulin added. Assessment & Plan (12/17/2024 2:04 PM CDT): A1C 8.4 ISS; Patient's BGMs elevated; long-acting insulin added. Assessment & Plan (12/16/2024 2:11 PM CDT): A1C 8.4 ISS Assessment & Plan (12/15/2024 2:37 PM CDT): A1C 8.4 ISS Assessment & Plan (12/14/2024 3:53 PM CDT): A1C 8.4 ISS Assessment & Plan (12/13/2024 3:12 PM CDT): A1C 8.4 ISS Assessment & Plan (12/12/2024 3:57 PM CDT): A1C 8.4 ISS Assessment & Plan (12/11/2024 3:46 PM CDT): A1C 8.4 ISS Assessment & Plan (12/10/2024 9:26 AM CDT): A1C 8.4 ISS Assessment & Plan (12/09/2024 10:21 AM CDT): A1C 8.4 ISS Assessment & Plan (12/08/2024 10:24 AM CDT): A1C 8.4 ISS Assessment & Plan (12/07/2024 9:55 AM CDT): A1C 8.4 ISS Assessment & Plan (12/06/2024 2:46 PM CDT): A1C 8.4 ISS Assessment & Plan (12/05/2024 10:19 AM CDT): A1C 8.4 ISS Assessment & Plan (12/04/2024 12:15 PM CDT): A1C 8.4 ISS Assessment & Plan (12/03/2024 11:43 PM CDT): A1C 8.4 ISS Assessment & Plan (11/30/2024 5:56 PM CDT): Orders: Comprehensive metabolic panel; Future Assessment & Plan (04/05/2024 2:56 PM BAKERY SALES CLERK): -check A1c -has previously had poor [...] sugar Assessment & Plan (06/02/2023 7:13 PM BAKERY SALES CLERK): -check A1c, last with fair control at 7.6% -adherent with jardiance 25mg daily -has recently restarted Metformin, tolerating well - continue -previously took rybelsus summer 2022, stopped after three days due to vomiting ; also previous intolerance to Trulicity -continue ACEI and statin -up to date with eye doctor and cornetist Assessment & Plan (09/30/2022 1:54 PM CDT): -A1C above goal in Fe -fasting sugars running higher at home -check A1C now -educated to reduce simple carbs and sugar in diet -plan to likely add in Rybelsus, discussed possible side effects, await A1C result -continue statin -ACEI being held 2/2 low BP in past -up to date with eye doctor, has upcoming cataract surgery in November -up to date with cornetist - still awaiting diabetic shoes Assessment & Plan (06/03/2022 1:23 PM BAKERY SALES CLERK): -check A1C, near goal in Fall 2021 -continue statin, off ACEI d/t low BP last fall -needs to see eye doctor in near future -follows with podiatry every 3 months, having diabetic shoe paperwork sent to our office for completion -needs shingrix, other vaccines up to date Assessment & Plan (03/04/2022 2:34 PM BAKERY SALES CLERK): -check A1C -currently taking Jardiance 25 [...] prevnar-13 Assessment & Plan (04/02/2021 2:36 PM BAKERY SALES CLERK): -A1C at goal 7% in clinic [...] aphasia. Assessment & Plan (04/29/2020 1:30 PM BAKERY SALES CLERK): - Will send Referral to [facility] clinic for botox injections. Patient has spastic left arm. MAS 3 - WIll discuss the addition of patient to next iteration of IpsiHand trial with Dr. Bashir] - [facility] PT/OT/DIRECTOR OF MATERIALS MANAGEMENT to optimize patient for possible IpsiHand trial [...] 09/30/2023 11/30/2024 Secondary hyperparathyroidism of renal origin 09/30/1911/30/2024 Overactive bladder 09/26/2023 Hydrocephalus 09/22/2023 11/30/2024 Headache 09/03/2023 11/30/2024 Bipolar and related disorder due to another medical condition, with manic features 08/19/2023 0 11/30/2024 Assessment & Plan (01/05/2024 3:01 PM CDT): -establish with psych Normal pressure hydrocephalus 08/19/2023 11/30/2024 Altered mental status, unspe cified altered mental status type 08/16/2023 11/30/2024 Personality change 06/02/2023 Assessment & Plan (06/02/2023 7:17 PM BAKERY SALES CLERK): -due to recent changes including personality [...] weeks Assessment & Plan (06/02/2023 7:15 PM BAKERY SALES CLERK): -sudden onset -4 cm discrepancy between calves -negative Pennie's sign -redness, warmth and diffuse swelling of LLE -check stat VUS to r/o acute DVT Paul-inattention 06/04/2022 11/30/2024 Impaired functional mobility , balance, gait, and endurance 06/04/2022 11/30/2024 Assessment & Plan (06/02/2023 7:17 PM BAKERY SALES CLERK): -resume PT, ordered Neuromuscular dysfunction of [...] own without assistance -recommend home PT and group home paraprofessional to assist with ADLs, referral for [facility] / home health placed Weakness 11/26/2021 11/30/2024 [...] PM CDT): -recently completed cipro, following with [facility] urology -check UA Assessment & Plan (11/26/2021 [...] or two with his neurology group at [facility] -continue Plavix 75 mg daily, atorvastatin 40 mg nightly and amlodipine 5 mg daily -ER precautions discussed if any acute symptoms recur 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 05/24/2017 08/01/2020 Hypertensive disorder 04/24/20172024 Assessment & Plan (04/05/2024 2:56 PM BAKERY SALES CLERK): -BP here today and at home [...] nephrology Assessment & Plan (06/02/2023 7:09 PM BAKERY SALES CLERK): -BP above goal today -increase lisinopril to 10 mg daily -check renal function and lytes Assessment & Plan (09/30/2022 1:50 PM CDT): -BP at goal -continue amlodipine 5 mg daily -check renal function Assessment & Plan (06/03/2022 1:21 PM BAKERY SALES CLERK): -blood pressure at goal on second reading -continue amlodipine 5 mg daily -check BMP Assessment & Plan (03/04/2022 2:32 PM BAKERY SALES CLERK): -BP at goal, continue amlodipine 5 [...] weeks Assessment & Plan (04/02/2021 2:35 PM BAKERY SALES CLERK): -borderline control, continue amlodipine 5 mg daily -encouraged to monitor blood pressure at home a few times monthly and bring readings to next visit Assessment & Plan (12/21/2019 3:06 PM CDT): -blood pressure is well controlled, continue amlodipine 5 mg daily Hyperlipidemia 04/24/2017 11/30/2024 Overview (01/31/2023): -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mg Assessment & Plan (12/21/2019 3:16 PM CDT): -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 mg 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/antiplatelets 04/24/2017 11/30/2024 long-term (current) use of aspirin 04/24/2017 11/30/2024 Acute embolism and thrombosi s of right femoral vein 04/24/2017 11/30/2024 Nontraumatic intracerebral hemorrhage 03/26/2017 11/30/2024 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 11/30/2024 Encounters Date Type Department Care Team Description 12/11/2024 3:20 PM CDT Ancillary Procedure [facility] Medicine Vascular Lab IP [address] [facility] [address] [place] [address] 12/04/2024 1:30 PM CDT - 12/04/2024 11:59 PM CDT Hospital Encounter [facility] Radiology [address] [place] [address] Discharge Disposition: Discharge to home or self care 12/03/2024 1:07 PM CDT - 12/26/2024 7:22 PM CDT Hospital Encounter [address] [phone] Deshawn Valente MD Levine, Mark D., MD Otto, MD Milan Persaud Spoorthi, MD Coleman, Kali Langley, MD Ng, MD Dat Valdez Nathan R., MD Mokbel, MD Carolina Peguero, MD Faiza Stuart, Silverio, MD Jiménez, Quirino Yoon MD Disorientation (Primary Dx); Urinary tract infection without hematuria, site unspecified; Altered mental status, unspecified altered mental status type; Cerebrovascular accident (CVA), unspecified mechanism (HCC); Benign prostatic hyperplasia, unspecified whether lower urinary tract symptoms present; Palpitation; Hyperlipidemia associated with type 2 diabetes mellitus (HCC) Discharge Disposition: Discharge to SNF 12/03/2024 Telephone [facility] at [address] [phone] Sadie Puri NP Medical Question/Miscellaneous 11/30/2024 12:35 PM CDT Lab [address] [address] Hypertension associated with diabetes (HCC); Type 2 diabetes mellitus with stage 2 chronic kidney disease, without long-term current use of insulin (HCC); Hyperlipidemia associated with type 2 diabetes mellitus (HCC); Gastroesophageal reflux disease without esophagitis; Anemia, unspecified type; Prostate cancer screening; Vitamin D deficiency, unspecified 11/30/2024 11:30 AM CDT Office Visit [facility] at [address] [phone] Sadie Puri NP Gastroesophageal reflux disease without [...] DVT (deep vein thrombosis) 11/30/2024 Results Follow-Up [facility] at [address] [phone] Sadie Puri NP Comprehensive metabolic panel, Lipid panel, Hemoglobin A1c, Additional followed-up results: 7 10/23/2024 Telephone [facility] [address] [place] [address] Medical Office Building [address], [address] [place] [address] Krysta Guzman MD rx needs directions from Last 3 Months Immunizations Immunization Administration [...] R ICA stent placement G TUBE PLACEMENT 2016 after stroke until May 2017. SHUNT EXTERNALIZATION August 06, 2023 2 shunts placed in brain CATARACT EXTRACTION Both eyes December 2022 IR G TUBE PLACEMENT PERCUTANEOUS 12/18/2024 N/A Medical History Medical History Date Comments Male [...] Arthritis 2018 Brain concussion Baseball accident in Acute respiratory failure 12/04/2024 Family History Medical History Relation Name Comments Allergy (severe) Brother Umesh Epilepsy Brother Umesh Family history of epilepsy - Post-traumatic (Added by TW Conv) Heart disease Father [place] Hypertension Father [place] Arthritis Mother Rukhsana Diabetes Mother Rukhsana Miscarriages / Stillbirths Mother Rukhsana Transient ischemic attack Mother Rukhsana Fa paulino history of transient ischemic attacks - (Added by TW Conv) Diabetes Mother's Sister GailJoanne Noelle Obesity Mother's Sister GailJoanne Noelle Alcohol abuse Paternal Grandfather Ulises Stroke Paternal Grandfather Ulises Stroke Paternal Grandmother Rola Vision loss Paternal Grandmother Rola Anesthesia problems Neg Hx Relation Name Status Comments Brother Umesh Father Marvin Mother Rukhsana Mother's Sister GailJoanneNoelle Alive Paternal Grandfather Ulises Alive Paternal Grandmother Rola Alive Social History Tobacco Use Types Packs/Day Years Used Date Smoking Tobacco: Former Pipe 1 5 - 1979 Passive Smoke Exposure: Past Smokeless Tobacco: Never Alcohol Use Standard Drinks/Week Comments Yes 0 (1 standard drink = 0.6 oz pur e alcohol) Occasionally Social Connection and Isolation Panel Answer Date Recorded In a typical week, how many times do you talk on the phone with family, friends, or neighbors? More than three times a week 09/04/2023 How often do you get togethe r with friends or relatives? Once a week 09/04/2023 How often do you attend [facility] or gnosticist services? 1 to 4 times per year 09/04/2023 Do you belong to any clubs o r organizations such as holiness groups, unions, fraternal or athletic groups, or [...] staff should administer the PHQ-9) 2 11/30/2024 PRAPARE - Transportation Answer Date Re corded [...] place to sleep or slept in a penitentiary (including now)? Patient unable to answer 09/01/2023 [...] any time in the past 12 m [facility], were you homeless or living in a penitentiary (including now)? Patient unable to answer 09/05/2023 Social Connection and Isolation Panel Answer Date Recorded In a typical week, how many times do you talk on the phone with family, friends, or neighbors? Once a week 12/11/2024 How often do you get togethe r with friends or relatives? More than three times a week 12/11/2024 How often do you attend chur ch or gnosticist services? Never 12/11/2024 Do you belong to any clubs o r organizations such as holiness groups, unions, fraternal or athletic groups, or school groups? No 12/11/2024 How often do you attend meet ings of the clubs or organizations you belong to? Never 12/11/2024 Are you , , di vorced, , never , or living with a partner? 12/11/2024 Overall Financial Resource Strain (CARDIA) Answe r Date Recorded How hard is it for you to pa y for the very basics like food, housing, medical care, and heating? Not very hard 12/11/2024 Hunger Vital Sign Answer Date Recorded Within the past 12 months, y ou worried that your food would run out before you got the money to buy more. Never true 12/12/19 Within the past 12 months, t he food you bought just didn't last and you didn't have money to get more. Never true 12/11/2024 PRAPARE - Transportation Answer Date Re corded In the past 12 months, has l ack of transportation kept you from medical appointments or from getting medications? No 11/17 In the past 12 months, has l ack of transportation kept you from meetings, work, or from getting things needed for daily living? No 12/11/2024 Housing Stability Vital Sign Answer Kishor e Recorded In the last 12 months, was t here a time when you were not able to pay the mortgage or rent on time? No 12/11/2024 In the past 12 months, how m any times have you moved where you were living? 0 12/11/2024 At any time in the past 12 m [facility], were you homeless or living in a penitentiary (including now)? No 12/11/2024 [facility] Utilities Answer Date Recorded In the past 12 months has th [employer] electric, gas, oil, or water company threatened to shut off services in your home? No 12/11/2024 Personal Safety Answer Date Recorded Have you ever been in or are you currently in a harmful physical or emotional relationship or is someone making you feel afraid or unsafe? 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 Gender Identity Male 09/01/2020 11:55 AM CDT Sexual Orientation Straight 09/01/2020 11 :55 AM CDT Obstetrics History Last Filed Vital Signs Vital Sign Reading Time Taken Comments Blood Pressure 159/71 12/26/2024 2:48 PM CDT Pulse 101 12/26/2024 2:48 PM CDT Temperature 36.9 C (98.4 F) 12/26/2024 2:48 PM CDT Respiratory Rate 17 12/26/2024 2:48 PM CDT Oxygen Saturation 100% 12/26/2024 2:48 PM CDT Inhaled Oxygen Concentration - - Weight 80.7 kg (177 lb 14.4 oz) 12/21/2024 9:56 PM CDT Height 177.8 cm (5' 10) 12/04/2024 6:08 PM CDT Body Mass Index 25.53 12/04/2024 6:08 PM CDT Plan of Treatment Health Maintenance Due Date Last Done Comments Dilated Eye Exam 1945 Zoster Vaccine (1 of 2) 1996 Well Visit 65+ 01/28/2024 01/27/2023, 12/12/2020 Covid-19 Vaccine (2024-2 6 season) 2024 02/05/2022, 02/05/2022, 02/19/2021, Additional history exists Influenza Vaccine (#1) 2024 , 01/27/2023, 02/04/2022, Additional history exists Hemoglobin A1C 06/02/2025 11/30/2024, 04/19, 11/11/2023, Additional history exists Depression Screening 11/30/2025 11/30/2024, 08/16/2023, 01/27/2023, Additional history exists Foot Exam 11/30/2025 11/30/2024 Lipid Panel 11/30/2025 11/30/2024, 04/19, 11/11/2023, Additional history exists eGFR 12/24/2025 12/24/2024, 090 10/2024, 12/22/2024, Additional history exists Fall Risk Assessment 12/26/2025 12/26/2024, 11/30/2024, 01/27/2023 DTaP/Tdap/Td Vaccine (4 - Td or Tdap) 05/05/2033 05/05/2023, 05/05/2023, 08/04/2020 Abdominal Aortic Aneurysm (A AA) Screen Completed 02/16/2022 Pneumococcal vaccine 65+ Completed 03/04/2022, 03/18 Albumin Creatinine Ratio, Urine Discontinued , 02/23/2021 Hepatitis B Screening Discontinued Hepatitis C Screening Discontinued Medical Devices Implanted Type Area Land Clearer Device Identifier Shelf Expiration Date Model / Serial / Lot [employer] Cecilio Antibiotic Kit Catheter Sterile Latex Free [id number] - [id number] Implanted:Qty: 1 on 08/06/2023 by Luis Carlos Mcgill MD at [facility] Left: Brain [employer] [id number] 11/28/2024 [id number] / / [id number] [employer] Certas Inline Siphonguard Valve Shunt [id number] - [id number] Implanted:Qty: 1 on 08/06/2023 by Luis Carlos Mcgill MD at [facility] Left: Brain [employer] [id number] / / Procedures Procedure Name Priority Date/Time Associated Diagnosis Comments POCT GLUCOSE DEVICE Routine 12/26/2024 4 :53 PM CDT POCT GLUCOSE DEVICE Routine 12/26/2024 4 :15 PM CDT POCT GLUCOSE DEVICE Routine 12/26/2024 11:02 AM CDT POCT GLUCOSE DEVICE Routine 12/26/2024 7 :54 AM CDT POCT GLUCOSE DEVICE Routine 12/26/2024 4 :37 AM CDT POCT GLUCOSE DEVICE Routine 12/26/2024 12:25 AM CDT POCT GLUCOSE DEVICE Routine 12/25/2024 8 :43 PM CDT POCT GLUCOSE DEVICE Routine 12/25/2024 4 :36 PM CDT POCT GLUCOSE DEVICE Routine 12/25/2024 11:35 AM CDT POCT GLUCOSE DEVICE Routine 12/25/2024 9 :23 AM CDT POCT GLUCOSE DEVICE Routine 12/25/2024 4 :37 AM CDT POCT GLUCOSE DEVICE Routine 12/25/2024 12:11 AM CDT EGFR Routine 12/24/2024 9:22 PM CDT DIFFERENTIAL AUTO Routine 12/24/2024 9:2 2 PM CDT PHOSPHORUS Routine 12/24/2024 9:22 PM CDT BASIC METABOLIC PANEL Routine 12/24/2024 9:22 PM CDT CBC WITH AUTO DIFFERENTIAL Routine 12/24/2024 9:22 PM CDT POCT GLUCOSE DEVICE Routine 12/24/2024 8 :26 PM CDT POCT GLUCOSE DEVICE Routine 12/24/2024 4 :[address] CHEST PE W CONTRAST IP Routine 2:59 PM CDT POCT GLUCOSE DEVICE Routine 12/24/2024 11:27 AM CDT POCT GLUCOSE DEVICE Routine 12/24/2024 7 :32 AM CDT POCT GLUCOSE DEVICE Routine 12/24/2024 4 :02 AM CDT POCT GLUCOSE DEVICE Routine 12/23/2024 11:59 PM CDT EGFR Routine 12/23/2024 11:18 PM CDT DIFFERENTIAL AUTO Routine 12/23/2024 11:18 PM CDT PHOSPHORUS Routine 12/23/2024 11:18 PM CDT BASIC METABOLIC PANEL Routine 12/23/2024 11:18 PM CDT CBC WITH AUTO DIFFERENTIAL Routine 12/23/2024 11:18 PM CDT POCT GLUCOSE DEVICE Routine 12/23/2024 9 :13 PM CDT POCT GLUCOSE DEVICE Routine 12/23/2024 5 :01 PM CDT POCT GLUCOSE DEVICE Routine 12/23/2024 11:21 AM CDT POCT GLUCOSE DEVICE Routine 12/23/2024 9 :41 AM CDT POCT GLUCOSE DEVICE Routine 12/23/2024 4 :05 AM CDT POCT GLUCOSE DEVICE Routine 12/23/2024 12:31 AM CDT EGFR Routine 12/22/2024 9:36 PM CDT DIFFERENTIAL AUTO Routine 12/22/2024 9:3 6 PM CDT PHOSPHORUS Routine 12/22/2024 9:36 PM CDT BASIC METABOLIC PANEL Routine 12/22/2024 9:36 PM CDT CBC WITH AUTO DIFFERENTIAL Routine 12/22/2024 9:36 PM CDT POCT GLUCOSE DEVICE Routine 12/22/2024 8 :56 PM CDT POCT GLUCOSE DEVICE Routine 12/22/2024 5 :53 PM CDT POCT GLUCOSE DEVICE Routine 12/22/2024 4 :04 PM CDT POCT GLUCOSE DEVICE Routine 12/22/2024 12:03 PM CDT POCT GLUCOSE DEVICE Routine 12/22/2024 10:26 AM CDT POCT GLUCOSE DEVICE Routine 12/22/2024 8 :39 AM CDT POCT GLUCOSE DEVICE Routine 12/22/2024 5 :10 AM CDT POCT GLUCOSE DEVICE Routine 12/22/2024 12:54 AM CDT POCT GLUCOSE DEVICE Routine 12/21/2024 9 :04 PM CDT EGFR Routine 12/21/2024 8:44 PM CDT DIFFERENTIAL AUTO Routine 12/21/2024 8:4 4 PM CDT PHOSPHORUS Routine 12/21/2024 8:44 PM CDT BASIC METABOLIC PANEL Routine 12/21/2024 8:44 PM CDT CBC WITH AUTO DIFFERENTIAL Routine 12/21/2024 8:44 PM CDT POCT GLUCOSE DEVICE Routine 12/21/2024 4 :10 PM CDT POCT GLUCOSE DEVICE Routine 12/21/2024 11:06 AM CDT POCT GLUCOSE DEVICE Routine 12/21/2024 7 :33 AM CDT POCT GLUCOSE DEVICE Routine 12/21/2024 5 :02 AM CDT POCT GLUCOSE DEVICE Routine 12/20/2024 11:31 PM CDT EGFR Routine 12/20/2024 10:16 PM CDT DIFFERENTIAL AUTO Routine 12/20/2024 10:16 PM CDT PHOSPHORUS Routine 12/20/2024 10:16 PM CDT BASIC METABOLIC PANEL Routine 12/20/2024 10:16 PM CDT CBC WITH AUTO DIFFERENTIAL Routine 12/20/2024 10:16 PM CDT POCT GLUCOSE DEVICE Routine 12/20/2024 8 :36 PM CDT POCT GLUCOSE DEVICE Routine 12/20/2024 4 :31 PM CDT XR CHEST 1 VIEW IP Routine 12/20/2024 3:35 PM CDT POCT GLUCOSE DEVICE Routine 12/20/2024 11:26 AM CDT POCT GLUCOSE DEVICE Routine 12/20/2024 7 :49 AM CDT POCT GLUCOSE DEVICE Routine 12/20/2024 3 :41 AM CDT POCT GLUCOSE DEVICE Routine 12/19/2024 11:31 PM CDT EGFR Routine 12/19/2024 10:17 PM CDT DIFFERENTIAL AUTO Routine 12/19/2024 10:17 PM CDT PHOSPHORUS Routine 12/19/2024 10:17 PM CDT BASIC METABOLIC PANEL Routine 12/19/2024 10:17 PM CDT CBC WITH AUTO DIFFERENTIAL Routine 12/19/2024 10:17 PM CDT POCT GLUCOSE DEVICE Routine 12/19/2024 8 :07 PM CDT POCT GLUCOSE DEVICE Routine 12/19/2024 5 :25 PM CDT POCT GLUCOSE DEVICE Routine 12/19/2024 3 :06 PM CDT POCT GLUCOSE DEVICE Routine 12/19/2024 11:24 AM CDT POCT GLUCOSE DEVICE Routine 12/19/2024 7 :33 AM CDT POCT GLUCOSE DEVICE Routine 12/19/2024 6 :11 AM CDT EGFR Routine 12/19/2024 3:57 AM CDT DIFFERENTIAL AUTO Routine 12/19/2024 3:5 7 AM CDT PHOSPHORUS Routine 12/19/2024 3:57 AM CDT MAGNESIUM Routine 12/19/2024 3:57 AM CDT BASIC METABOLIC PANEL Routine 12/19/2024 3:57 AM CDT CBC WITH AUTO DIFFERENTIAL Routine 12/19/2024 3:57 AM CDT POCT GLUCOSE DEVICE Routine 12/19/2024 2 :15 AM CDT POCT GLUCOSE DEVICE Routine 12/18/2024 7 :42 PM CDT XR CHEST 1 VIEW IP Routine 12/18/2024 4:21 PM CDT POCT GLUCOSE DEVICE Routine 12/18/2024 4 :12 PM CDT POCT GLUCOSE DEVICE Routine 12/18/2024 1 :50 PM CDT POCT GLUCOSE DEVICE Routine 12/18/2024 11:49 AM CDT IR G TUBE PLACEMENT PERCUTANEOUS IP Routine 12/18/2024 9:27 AM CDT POCT GLUCOSE DEVICE Routine 12/18/2024 7 :41 AM CDT POCT GLUCOSE DEVICE Routine 12/18/2024 4 :52 AM CDT POCT GLUCOSE DEVICE Routine 12/18/2024 1 :38 AM CDT EGFR Routine 12/17/2024 11:53 PM CDT DIFFERENTIAL AUTO Routine 12/17/2024 11:53 PM CDT PROTIME-INR Routine 12/17/2024 11:53 PM CDT PHOSPHORUS Routine 12/17/2024 11:53 PM CDT MAGNESIUM Routine 12/17/2024 11:53 PM CDT BASIC METABOLIC PANEL Routine 12/17/2024 11:53 PM CDT CBC WITH AUTO DIFFERENTIAL Routine 12/17/2024 11:53 PM CDT POCT GLUCOSE DEVICE Routine 12/17/2024 8 :15 PM CDT POCT GLUCOSE DEVICE Routine 12/17/2024 4 :13 PM CDT XR CHEST 1 VIEW ED Urgent/IP Urgent 12/17/2024 11:43 AM CDT POCT GLUCOSE DEVICE Routine 12/17/2024 11:07 AM CDT POCT GLUCOSE DEVICE Routine 12/17/2024 7 :54 AM CDT POCT GLUCOSE DEVICE Routine 12/17/2024 4 :30 AM CDT POCT GLUCOSE DEVICE Routine 12/16/2024 11:21 PM CDT EGFR Routine 12/16/2024 7:46 PM CDT DIFFERENTIAL AUTO Routine 12/16/2024 7:4 6 PM CDT PHOSPHORUS Routine 12/16/2024 7:46 PM CDT MAGNESIUM Routine 12/16/2024 7:46 PM CDT BASIC METABOLIC PANEL Routine 12/16/2024 7:46 PM CDT CBC WITH AUTO DIFFERENTIAL Routine 12/16/2024 7:46 PM CDT POCT GLUCOSE DEVICE Routine 12/16/2024 7 :43 PM CDT POCT GLUCOSE DEVICE Routine 12/16/2024 4 :17 PM CDT POCT GLUCOSE DEVICE Routine 12/16/2024 11:46 AM CDT POCT GLUCOSE DEVICE Routine 12/16/2024 7 :18 AM CDT POCT GLUCOSE DEVICE Routine 12/16/2024 3 :49 AM CDT POCT GLUCOSE DEVICE Routine 12/15/2024 11:57 PM CDT EGFR Routine 12/15/2024 8:25 PM CDT DIFFERENTIAL AUTO Routine 12/15/2024 8:2 5 PM CDT PHOSPHORUS Routine 12/15/2024 8:25 PM CDT MAGNESIUM Routine 12/15/2024 8:25 PM CDT BASIC METABOLIC PANEL Routine 12/15/2024 8:25 PM CDT CBC WITH AUTO DIFFERENTIAL Routine 12/15/2024 8:25 PM CDT POCT GLUCOSE DEVICE Routine 12/15/2024 7 :50 PM CDT POCT GLUCOSE DEVICE Routine 12/15/2024 4 :42 PM CDT POCT GLUCOSE DEVICE Routine 12/15/2024 11:54 AM CDT XR ABDOMEN AP 1 VIEW IP Routine 12/15/2024 11:09 AM CDT POCT GLUCOSE DEVICE Routine 12/15/2024 7 :46 AM CDT POCT GLUCOSE DEVICE Routine 12/15/2024 4 :04 AM CDT POCT GLUCOSE DEVICE Routine 12/15/2024 12:05 AM CDT EGFR Routine 12/14/2024 8:52 PM CDT DIFFERENTIAL AUTO Routine 12/14/2024 8:5 2 PM CDT PHOSPHORUS Routine 12/14/2024 8:52 PM CDT MAGNESIUM Routine 12/14/2024 8:52 PM CDT BASIC METABOLIC PANEL Routine 12/14/2024 8:52 PM CDT CBC WITH AUTO DIFFERENTIAL Routine 12/14/2024 8:52 PM CDT POCT GLUCOSE DEVICE Routine 12/14/2024 7 :55 PM CDT POCT GLUCOSE DEVICE Routine 12/14/2024 3 :08 PM CDT POCT GLUCOSE DEVICE Routine 12/14/2024 11:20 AM CDT POCT GLUCOSE DEVICE Routine 12/14/2024 7 :49 AM CDT POCT GLUCOSE DEVICE Routine 12/14/2024 5 :23 AM CDT POCT GLUCOSE DEVICE Routine 12/13/2024 11:36 PM CDT EGFR Routine 12/13/2024 11:24 PM CDT DIFFERENTIAL AUTO Routine 12/13/2024 11:24 PM CDT PHOSPHORUS Routine 12/13/2024 11:24 PM CDT MAGNESIUM Routine 12/13/2024 11:24 PM CDT BASIC METABOLIC PANEL Routine 12/13/2024 11:24 PM CDT CBC WITH AUTO DIFFERENTIAL Routine 12/13/2024 11:24 PM CDT POCT GLUCOSE DEVICE Routine 12/13/2024 8 :17 PM CDT POCT GLUCOSE DEVICE Routine 12/13/2024 5 :17 PM CDT POCT GLUCOSE DEVICE Routine 12/13/2024 11:33 AM CDT POCT GLUCOSE DEVICE Routine 12/13/2024 7 :38 AM CDT POCT GLUCOSE DEVICE Routine 12/13/2024 4 :02 AM CDT XR ABDOMEN AP 1 VIEW ED Urgent/IP Urgent 12/13/2024 1:10 AM CDT POCT GLUCOSE DEVICE Routine 12/12/2024 11:48 PM CDT EGFR Routine 12/12/2024 8:59 PM CDT DIFFERENTIAL AUTO Routine 12/12/2024 8:5 9 PM CDT PHOSPHORUS Routine 12/12/2024 8:59 PM CDT MAGNESIUM Routine 12/12/2024 8:59 PM CDT BASIC METABOLIC PANEL Routine 12/12/2024 8:59 PM CDT CBC WITH AUTO DIFFERENTIAL Routine 12/12/2024 8:59 PM CDT POCT GLUCOSE DEVICE Routine 12/12/2024 8 :03 PM CDT POCT GLUCOSE DEVICE Routine 12/12/2024 4 :55 PM CDT XR ABDOMEN AP 1 VIEW ED Urgent/IP Urgent 12/12/2024 11:46 AM CDT POCT GLUCOSE DEVICE Routine 12/12/2024 11:29 AM CDT POCT GLUCOSE DEVICE Routine 12/12/2024 7 :32 AM CDT POCT GLUCOSE DEVICE Routine 12/12/2024 3 :44 AM CDT EGFR Routine 12/12/2024 12:43 AM CDT DIFFERENTIAL AUTO Routine 12/12/2024 12:43 AM CDT PHOSPHORUS Routine 12/12/2024 12:43 AM CDT MAGNESIUM Routine 12/12/2024 12:43 AM CDT BASIC METABOLIC PANEL Routine 12/12/2024 12:43 AM CDT CBC WITH AUTO DIFFERENTIAL Routine 12/12/2024 12:43 AM CDT POCT GLUCOSE DEVICE Routine 12/11/2024 11:32 PM CDT POCT GLUCOSE DEVICE Routine 12/11/2024 7 :49 PM CDT XR CHEST 1 VIEW ED Urgent/IP Urgent 12/11/2024 5:53 PM CDT POCT GLUCOSE DEVICE Routine 12/11/2024 4 :53 PM CDT US VEIN DUPLEX LOWER EXTREMITY BILATERAL COMPLETE IP Routine 12/11/2024 4:40 PM CDT POCT GLUCOSE DEVICE Routine 12/11/2024 11:14 AM CDT POCT GLUCOSE DEVICE Routine 12/11/2024 7 :31 AM CDT POCT GLUCOSE DEVICE Routine 12/11/2024 4 :28 AM CDT POCT GLUCOSE DEVICE Routine 12/10/2024 11:16 PM CDT EGFR Routine 12/10/2024 9:55 PM CDT RENAL FUNCTION PANEL Routine 12/10/2024 9:55 PM CDT POCT GLUCOSE DEVICE Routine 12/10/2024 7 :53 PM CDT POCT GLUCOSE DEVICE Routine 12/10/2024 4 :20 PM CDT POCT GLUCOSE DEVICE Routine 12/10/2024 1 :31 PM CDT FL MODIFIED BARIUM SWALLOW W VIDEO IP Routine 12/10/2024 11:15 AM CDT DIRECTOR OF MATERIALS MANAGEMENT EVALUATE AND TREAT VIDEOFLUOROSCOPIC SWALLOW STUDY Routine 12/10/2024 11:00 AM CDT POCT GLUCOSE DEVICE Routine 12/10/2024 7 :44 AM CDT POCT GLUCOSE DEVICE Routine 12/10/2024 4 :54 AM CDT POCT GLUCOSE DEVICE Routine 12/09/2024 11:39 PM CDT POCT GLUCOSE DEVICE Routine 12/09/2024 11:03 PM CDT EGFR Routine 12/09/2024 9:55 PM CDT RENAL FUNCTION PANEL Routine 12/09/2024 9:55 PM CDT POCT GLUCOSE DEVICE Routine 12/09/2024 9 :44 PM CDT POCT GLUCOSE DEVICE Routine 12/09/2024 4 :24 PM CDT POCT GLUCOSE DEVICE Routine 12/09/2024 11:20 AM CDT POCT GLUCOSE DEVICE Routine 12/09/2024 7 :33 AM CDT POCT GLUCOSE DEVICE Routine 12/09/2024 4 :05 AM CDT EGFR Routine 12/09/2024 4:04 AM CDT CBC WITHOUT DIFFERENTIAL Routine 12/09/2024 4:04 AM CDT BASIC METABOLIC PANEL Routine 12/09/2024 4:04 AM CDT POCT GLUCOSE DEVICE Routine 12/09/2024 1 :54 AM CDT POCT GLUCOSE DEVICE Routine 12/08/2024 8 :41 PM CDT XR CHEST 1 VIEW ED Urgent/IP Urgent 12/08/2024 4:30 PM CDT POCT GLUCOSE DEVICE Routine 12/08/2024 3 :43 PM CDT POCT GLUCOSE DEVICE Routine 12/08/2024 11:29 AM CDT POCT GLUCOSE DEVICE Routine 12/08/2024 7 :24 AM CDT EGFR Routine 12/08/2024 6:03 AM CDT CBC WITHOUT DIFFERENTIAL Routine 12/08/2024 6:03 AM CDT BASIC METABOLIC PANEL Routine 12/08/2024 6:03 AM CDT POCT GLUCOSE DEVICE Routine 12/08/2024 4 :16 AM CDT POCT GLUCOSE DEVICE Routine 12/08/2024 12:21 AM CDT POCT GLUCOSE DEVICE Routine 12/07/2024 8 :15 PM CDT POCT GLUCOSE DEVICE Routine 12/07/2024 4 :33 PM CDT POCT GLUCOSE DEVICE Routine 12/07/2024 2 :40 PM CDT POCT GLUCOSE DEVICE Routine 12/07/2024 11:25 AM CDT POCT GLUCOSE DEVICE Routine 12/07/2024 7 :27 AM CDT EGFR Routine 12/07/2024 6:44 AM CDT CBC WITHOUT DIFFERENTIAL Routine 12/07/2024 6:44 AM CDT BASIC METABOLIC PANEL Routine 12/07/2024 6:44 AM CDT POCT GLUCOSE DEVICE Routine 12/07/2024 5 :29 AM CDT POCT GLUCOSE DEVICE Routine 12/07/2024 3 :06 AM CDT POCT GLUCOSE DEVICE Routine 12/06/2024 8 :07 PM CDT URINALYSIS, MICROSCOPIC ONLY Routine 12/06/2024 6:07 PM CDT UREA NITROGEN, URINE, RANDOM Routine 12/06/2024 6:07 PM CDT SODIUM, URINE, RANDOM Routine 12/06/2024 6:07 PM CDT CREATININE, URINE, RANDOM Routine 12/06/2024 6:07 PM CDT URINE CULTURE Routine 12/06/2024 6:07 PM CDT URINALYSIS AND REFLEX TO MICROSCOPIC AND CULTURE Routine 12/06/2024 6:07 PM CDT POCT GLUCOSE DEVICE Routine 12/06/2024 4 :14 PM CDT POCT GLUCOSE DEVICE Routine 12/06/2024 11:05 AM CDT US RETROPERITONEAL COMPLETE IP Routine 12/06/2024 9:00 AM CDT POCT GLUCOSE DEVICE Routine 12/06/2024 7 :30 AM CDT POCT GLUCOSE DEVICE Routine 12/06/2024 4 :25 AM CDT EGFR Routine 12/06/2024 4:24 AM CDT CBC WITHOUT DIFFERENTIAL Routine 12/06/2024 4:24 AM CDT BASIC METABOLIC PANEL Routine 12/06/2024 4:24 AM CDT POCT GLUCOSE DEVICE Routine 12/06/2024 12:44 AM CDT POCT GLUCOSE DEVICE Routine 12/05/2024 8 :45 PM CDT POCT GLUCOSE DEVICE Routine 12/05/2024 4 :38 PM CDT EGFR Timed 12/05/2024 3:52 PM CDT RENAL FUNCTION PANEL Timed 12/05/2024 3:52 PM CDT TRANSTHORACIC ECHO (TTE) COMPLETE W DOPPLER/CF W CONTRAST Routine 12/05/2024 3:22 PM CDT POCT GLUCOSE DEVICE Routine 12/05/2024 11:22 AM CDT POCT GLUCOSE DEVICE Routine 12/05/2024 7 :59 AM CDT POCT GLUCOSE DEVICE Routine 12/05/2024 5 :13 AM CDT MRI BRAIN TUMOR W WO CONTRAST IP Routine 12/05/2024 4:57 AM CDT EGFR Routine 12/05/2024 2:10 AM CDT CBC WITHOUT DIFFERENTIAL Routine 12/05/2024 2:10 AM CDT BASIC METABOLIC PANEL Routine 12/05/2024 2:10 AM CDT POCT GLUCOSE DEVICE Routine 12/04/2024 11:41 PM CDT POCT GLUCOSE DEVICE Routine 12/04/2024 9 :22 PM CDT POCT GLUCOSE DEVICE Routine 12/04/2024 6 :38 PM CDT LACTATE STAT 12/04/2024 4:20 PM CDT DIRECTOR OF MATERIALS MANAGEMENT EVALUATE AND TREAT VIDEOFLUOROSCOPIC SWALLOW STUDY Routine 12/04/2024 3:07 PM CDT DIRECTOR OF MATERIALS MANAGEMENT EVALUATE AND TREAT FIBEROPTIC ENDOSCOPIC SWALLOW Routine 12/04/2024 3:07 PM CDT FL MODIFIED BARIUM SWALLOW W VIDEO IP Routine 12/04/2024 2:20 PM CDT POCT GLUCOSE DEVICE Routine 12/04/2024 12:08 PM CDT LACTATE STAT 12/04/2024 9:43 AM CDT POCT GLUCOSE DEVICE Routine 12/04/2024 7 :42 AM CDT RADIOLOGY EVENT IP Routine 12/04/2024 5:[address] CHEST PE W CONTRAST IP Routine 5:52 AM CDT XR TRANSFER OF OUTSIDE FILMS Routine 12/04/2024 5:26 AM CDT EGFR Routine 12/04/2024 4:52 AM CDT CBC WITHOUT DIFFERENTIAL Routine 12/04/2024 4:52 AM CDT BASIC METABOLIC PANEL Routine 12/04/2024 4:52 AM CDT POCT GLUCOSE DEVICE Routine 12/04/2024 4 :25 AM CDT POCT GLUCOSE DEVICE Routine 12/04/2024 12:01 AM CDT CRITICAL RESULT CALLBACK CHEMISTRY Timed 12/03/2024 11:58 PM CDT SEPSIS LACTATE WITH REFLEX Timed 12/03/2024 11:58 PM CDT POCT GLUCOSE DEVICE Routine 12/03/2024 8 :56 PM CDT POCT GLUCOSE DEVICE Routine 12/03/2024 7 :41 PM CDT CRITICAL RESULT CALLBACK CHEMISTRY Timed 12/03/2024 6:10 PM CDT SEPSIS LACTATE WITH REFLEX Timed 12/03/2024 6:10 PM CDT CREATININE, URINE, RANDOM STAT 12/03/2024 5:13 PM CDT SODIUM, URINE, RANDOM STAT 12/03/2024 5:13 PM CDT URINALYSIS, MICROSCOPIC ONLY STAT 12/03/2024 5:13 PM CDT DRUGS OF ABUSE SCREEN, URINE WITHOUT CONFIRMATION STAT 12/03/2024 5:13 PM CDT URINE CULTURE STAT 12/03/2024 5:13 PM CDT URINALYSIS AND REFLEX TO MICROSCOPIC AND CULTURE STAT 12/03/2024 5:13 PM CDT AMMONIA STAT 12/03/2024 4:52 PM CDT MAGNESIUM STAT 12/03/2024 4:52 PM CDT PHOSPHORUS STAT 12/03/2024 4:52 PM CDT ETHANOL STAT 12/03/2024 4:52 PM CDT VITAMIN B12 STAT 12/03/2024 4:52 PM CDT VITAMIN B1 STAT 12/03/2024 4:52 PM CDT HIV 1/2 ANTIBODY PLUS P24 ANTIGEN STAT 12/03/2024 4:52 PM CDT RPR STAT 12/03/2024 4:52 PM CDT OK CRITICAL CARE ILL/INJURED PATIENT INIT 30-74 MIN Routine 12/03/2024 4:09 PM CDT BLOOD CULTURE STAT 12/03/2024 4:08 PM CDT BLOOD CULTURE STAT 12/03/2024 4:07 PM CDT CTA/CTP RAPID STROKE Critical/Life- Threatening 12/03/2024 3:59 PM CDT POCT PROTHROMBIN TIME, WHOLE BLOOD Routine 12/03/2024 3:30 PM CDT POCT GLUCOSE DEVICE Routine 12/03/2024 3 :29 PM CDT BLOOD GAS, VENOUS STAT 12/03/2024 3:1 7 PM CDT EGFR STAT 12/03/2024 3:10 PM CDT DIFFERENTIAL AUTO STAT 12/03/2024 3:1 0 PM CDT VERIFY NOW CLOPIDOGREL STAT 3:10 PM CDT VERIFY NOW ASPIRIN STAT 12/03/2024 3: 10 PM CDT SEPSIS LACTATE WITH REFLEX STAT 12/03/2024 3:10 PM CDT HEPATIC FUNCTION PANEL Routine 3:10 PM CDT TYPE AND SCREEN STAT 12/03/2024 3:10 PM CDT APTT Routine 12/03/2024 3:10 PM CDT PROTIME-INR Routine 12/03/2024 3:10 PM CDT BASIC METABOLIC PANEL STAT 12/03/2024 3:10 PM CDT CBC WITH AUTO DIFFERENTIAL STAT 12/03/2024 3:10 PM CDT RESPIRATORY PATHOGEN PANEL STAT 12/03/2024 3:10 PM CDT XR CHEST 1 VIEW ED 12/03/2024 2:[address] OUTSIDE CONSULT Routine 12/03/2024 2:25 PM CDT XR TRANSFER OF OUTSIDE FILMS ED 12/03/2024 1:26 PM CDT VALPROIC ACID LEVEL, TOTAL STAT 12/03/2024 1:24 PM CDT ECG 12-LEAD STAT 12/03/2024 1:19 PM CDT POCT GLUCOSE DEVICE Routine 12/03/2024 1 :17 PM CDT EGFR Routine 11/30/2024 12:45 PM CDT Hypertension associated with diabetes (HCC) Type 2 diabetes mellitus with stage 2 chronic kidney disease, without long-term current use of insulin (HCC) DIFFERENTIAL AUTO Routine 11/30/2024 12:45 PM CDT Gastroesophageal reflux disease without esophagitis Hyperlipidemia associated with type 2 diabetes mellitus (HCC) Hypertension associated with diabetes (HCC) Anemia, unspecified type VITAMIN D 25 HYDROXY Routine 11/30/2024 12:45 PM CDT Vitamin D deficiency, unspecified PSA SCREEN Routine 11/30/2024 12:45 PM CDT Prostate cancer screening IRON PROFILE W/ IBC Routine 11/30/2024 12:45 PM CDT Anemia, unspecified type FERRITIN Routine [...] without long-term current use of insulin (HCC) ALBUMIN CREATININE RATIO, URINE Routine 01/26/2023 3:07 PM CDT Type 2 diabetes mellitus without complication, without long-term current use of insulin (HCC) CT ABDOMEN PELVIS W CONTRAST Schedule Routine, Read Routine (OP Routine) 02/16/2022 11:20 AM CDT Elevated alkaline phosphatase level Constipation, unspecified constipation type from Last 3 Months or Most Recently Relevant to Health Maintenance Results * POCT glucose (12/26/2024 4:53 PM CDT) Glucose, POC 163 70 - 199 mg/dL Blood 12/26/2024 4:53 PM CDT 12/26/2024 4:53 PM CDT Quirino Jiménez MD LAB POCT ORDERABLES - D EVICE Final Result Performing Organization Address City/[facility]/ZIP Co de Phone Number [facility] [place] [place] [address] * POCT glucose (12/26/2024 4:15 PM CDT) Glucose, POC 159 70 - 199 mg/dL Blood 12/26/2024 4:15 PM CDT 12/26/2024 4:15 PM CDT Quirino Jiménez MD LAB POCT ORDERABLES - D EVICE Final Result [facility] Department [place] [address] * (ABNORMAL) POCT glucose (12/26/2024 11:02 AM CDT) Glucose, POC 210(H) 70 - 199 mg/dL Comment: Glu2: Critical Value Noted RN/MD Notified Glucose comment 2 RN/MD Notified [facility] Blood 12/26/2024 11:0 2 AM CDT 12/26/2024 11:02 AM CDT Quirino Jiménez MD LAB POCT ORDERABLES - D EVICE Final Result [facility] Department [place] [address] * POCT glucose (12/26/2024 7:54 AM CDT) Glucose, POC 174 70 - 199 mg/dL Blood 12/26/2024 7:54 AM CDT 12/26/2024 7:54 AM CDT us Quirino Jiménez MD LAB POCT ORDERABLES - D EVICE Final Result Performing Organization Address City/[facility]/ZIP Co de Phone Number [facility] Department [place] [address] * POCT glucose (12/26/2024 4:37 AM CDT) Glucose, POC 163 70 - 199 mg/dL Blood 12/26/2024 4:37 AM CDT 12/26/2024 4:37 AM CDT Quirino Jiménez MD LAB POCT ORDERABLES - D EVICE Final Result Performing Organization Address City/[facility] Co de Phone Number [facility] [employer] [place] [address] * (ABNORMAL) POCT glucose (12/26/2024 12:25 AM CDT) Glucose, POC 211(H) 70 - 199 mg/dL Blood 12/26/2024 12:2 5 AM CDT 12/26/2024 12:25 AM CDT Quirino Jiménez MD LAB POCT ORDERABLES - D EVICE Final Result Performing Organization Address [facility] Co de Phone Number [facility] [place] [place] [address] * POCT glucose (12/25/2024 8:43 PM CDT) Glucose, POC 177 70 - 199 mg/dL Blood 12/25/2024 8:43 PM CDT 12/25/2024 8:43 PM CDT Quirino Jiménez MD LAB POCT ORDERABLES - D EVICE Final Result Performing Organization Address [facility] Co de Phone Number [facility] [employer] [place] [address] * POCT glucose (12/25/2024 4:36 PM CDT) Glucose, POC 154 70 - 199 mg/dL Blood 12/25/2024 4:36 PM CDT 12/25/2024 4:36 PM CDT Quirino Jiménez MD LAB POCT ORDERABLES - D EVICE Final Result Performing Organization Address City/[facility] Co de Phone Number [facility] [employer] [place] [address] * POCT glucose (12/25/2024 11:35 AM CDT) Glucose, POC 191 70 - 199 mg/dL Blood 12/25/2024 11:3 5 AM CDT 12/25/2024 11:35 AM CDT us Quirino Jiménez MD LAB POCT ORDERABLES - D EVICE Final Result Performing Organization Address [facility] Co de Phone Number [facility] [place] [address] * (ABNORMAL) POCT glucose (12/25/2024 9:23 AM CDT) Glucose, POC 220(H) 70 - 199 mg/dL Blood 12/25/2024 9:23 AM CDT 12/25/2024 9:23 AM CDT us Quirino Jiménez MD LAB POCT ORDERABLES - D EVICE Final Result Performing Organization Address [facility] de Phone Number [facility] [place] [address] * POCT glucose (12/25/2024 4:37 AM CDT) Glucose, POC 172 70 - 199 mg/dL Blood 12/25/2024 4:37 AM CDT 12/25/2024 4:37 AM CDT us Silverio Kendall MD LAB POCT ORDERABLES - DEVICE Fin al Result Performing Organization Address [facility] de Phone Number [facility] Department [place] [address] * POCT glucose (12/25/2024 12:11 AM CDT) Glucose, POC 190 70 - 199 mg/dL Blood 12/25/2024 12:1 1 AM CDT 12/25/2024 12:11 AM CDT Silverio Kendall MD LAB POCT ORDERABLES - DEVICE Fin al Result Performing Organization Address [facility] Co de Phone Number [facility] [place] [address] * eGFR (12/24/2024 9:22 PM CDT) Pathologist [facility] eGFR 75 >=60 mL/min/1. 73 m2 Comment: Interpretive Data [...] interpretive data was last reviewed 2021. Blood 12/24/2024 9:22 PM CDT 12/24/2024 10:52 PM CDT us Marlen Lynn MD LAB BLOOD ORDERABLES Katalina perales Result [facility] Department [place] [address] * Differential, auto (12/24/2024 9:22 PM CDT) Pathologist [facility] [place] Neutrophil abs 4.77 1.50 - 6.50 K/cumm Imm gran abs 0.02 0.00 - 0.10 K/cumm [facility] Lymphocyte abs 2.06 0.80 - 3.30 K/cumm [facility] Monocyte abs 0.62 0.20 - 0.80 K/cumm [facility] Eosinophil abs 0.21 0.00 - 0.50 K/cumm [facility] Basophil abs 0.07 0.00 - 0.10 K/cumm [facility] Neutrophil pct 61.5 % [facility] Comment: Interpretive Data Percent cell count reference ranges are not reported, since discordance with absolute values may lead to misinterpretation of CBC data. Current Interpretive Data was last revised on 2017. Imm gran pct 0.3 % [facility] Comment: Interpretive Data Percent cell count reference ranges are not reported, since discordance with absolute values may lead to misinterpretation of CBC data. Current Interpretive Data was last revised on 2017. Lymphocyte pct 26.6 % [facility] Comment: Interpretive Data Percent cell count reference ranges are not reported, since discordance with absolute values may lead to misinterpretation of CBC data. Current Interpretive Data was last revised on 2017. Monocyte pct 8.0 % [facility] Comment: Interpretive Data Percent cell count reference ranges are not reported, since discordance with absolute values may lead to misinterpretation of CBC data. Current Interpretive Data was last revised on 2017. Eosinophil pct 2.7 % [facility] Comment: Interpretive Data Percent cell count reference ranges are not reported, since discordance with absolute values may lead to misinterpretation of CBC data. Current Interpretive Data was last revised on 2017. Basophil pct 0.9 % [facility] Comment: Interpretive Data Percent cell count reference ranges are not reported, since discordance with absolute values may lead to misinterpretation of CBC data. Current Interpretive Data was last revised on 2017. Blood 12/24/2024 9:22 PM CDT 12/24/2024 10:52 PM CDT us Marlen Lynn MD LAB BLOOD ORDERABLES Katalina l Result [facility] Department [place] [address] * (ABNORMAL) CBC with auto differential (12/24/2024 9:22 PM CDT) WBC 7.75 3.80 - 9.90 K/cumm Hgb 12.3(L) 13.0 - 17.5 g/dL [facility] Hct 37.3(L) 38.9 - 50.3 % [facility] Plt 337 150 - 400 K/cumm [facility] MPV 9.6 9.1 - 12.3 fL [facility] RBC 4.13(L) 4.30 - 5.80 M/cumm [facility] MCV 90.3 81.3 - 96.4 fL [facility] MCH 29.8 27.1 - 33.3 pg [facility] MCHC 33.0 32.3 - 35.7 g/dL [facility] RDW CV 14.4 11.1 - 14.9 % [facility] RDW SD 47.7 35.7 - 48.1 fL [facility] NRBC abs 0.00 0.00 - 0.01 K/cumm [facility] Blood 12/24/2024 9:22 PM CDT 12/24/2024 10:52 PM CDT Marlen Lynn MD LAB BLOOD ORDERABLES Katalina l Result Performing Organization Address City/[facility] Co de Phone Number [facility] Department [place] [place] [address] * Phosphorus (12/24/2024 9:22 PM CDT) Pathologist [facility] [place] Phosphorus, pl 3.2 2.3 - 4.5 mg/dL Blood 12/24/2024 9:22 PM CDT 12/24/2024 10:52 PM CDT Marlen Lynn MD LAB BLOOD ORDERABLES Katalina l Result [facility] [place] [place] [address] * (ABNORMAL) Basic metabolic panel (12/24/2024 9:22 PM CDT) Pathologist [facility] [place] Sodium 137 135 - 145 mmol/L Potassium, pl 4.5 3.3 - 4.9 mmol/L [facility] Chloride 99 97 - 110 mmol/L [facility] CO2 29 22 - 32 mmol/L [facility] Anion gap 9 2 - 15 mmol/L [facility] BUN 39(H) 6 - 25 mg/dL [facility] Creatinine 1.02 0.80 - 1.30 mg/dL [facility] Glucose 186 70 - 199 mg/dL [facility] Comment: Interpretive Data Fasting glucose [...] classification and Diagnosis of Diabetes Diabetes Care 202; 46: S19-S40. Current interpretive data was last revised 2022. Calcium 9.8 8.5 - 10.3 mg/dL [facility] Blood 12/24/2024 9:22 PM CDT 12/24/2024 10:52 PM CDT Marlen Lynn MD LAB BLOOD ORDERABLES Katalina l Result Performing Organization Address City/[facility] Co de Phone Number [facility] Department [place] [place] [address] * POCT glucose (12/24/2024 8:26 PM CDT) [facility] Glucose, POC 173 70 - 199 mg/dL Blood 12/24/2024 8:26 PM CDT 12/24/2024 8:26 PM CDT Silverio Kendall MD LAB POCT ORDERABLES - DEVICE Fin al Result Performing Organization Address City/[facility]/ZIP Co de Phone Number [facility] Department [place] [address] * POCT glucose (12/24/2024 4:33 PM CDT) Glucose, POC 172 70 - 199 mg/dL Blood 12/24/2024 4:33 PM CDT 12/24/2024 4:33 PM CDT us Kiranu Faiza MCINTOSH LAB POCT ORDERABLES - DEVICE Fin al Result [facility] Department [place] [address] * CT Chest PE (CTA) W Contrast (12/24/2024 2:59 PM CDT) Anatomical Region Laterality Modality Body N/A Computed Tomogra phy 12/24/2024 3:29 PM CDT Impressions 12/24/2024 3:40 PM CDT 1. No pulmonary embolism. 2. Findings of mild aspiration in the dependant lower lobes. 3. Bilateral calcified pleural plaques may be due to prior asbestosis exposure. Dictated by: Daron Jay MD The radiology attending physician has personally reviewed this study, and had reviewed and/or edited this written report and agrees with it. Electronically signed by: Geo Shelton M.D. Narrative 12/24/2024 3:40 PM CDT EXAMINATION: CT CHEST PE (CTA) W CONTRAST HISTORY: Concern for pulmonary embolism TECHNIQUE: Computed tomographic images were acquired using a chest angiographic protocol optimized for pulmonary embolism. Contrast enhanced transaxial images were obtained following the intravenous administration of 69 ml of nonionic contrast. Multiplanar reformatted images and three-dimensional images were obtained on the 3-D workstation and sent to the PACS archival system. COMPARISON: CT from 12/04/2024 FINDINGS: Imaged thyroid within normal limits. Debris within the trachea. No supraclavicular, axillary, or mediastinal lymphadenopathy. Heart size normal without pericardial effusion. Severe multivessel coronary artery calcifications. Normal caliber of the thoracic aorta. No pulmonary embolism. Bronchial mucus plugging and tree in bud nodularity at the right greater than left lung bases. Atelectasis the lung bases. No suspicious nodule, effusion, or pneumothorax. Bilateral calcified pleural plaques. Imaged portion of the abdomen shows no acute or contributory process. No aggressive osseous lesion. Procedure Note Geo Shelton MD - 12/24/2024 EXAMINATION: CT CHEST PE (CTA) W CONTRAST HISTORY: Concern for pulmonary embolism TECHNIQUE: Computed tomographic images were acquired using a chest angiographic protocol optimized for pulmonary embolism. Contrast enhanced transaxial images were obtained following the intravenous administration of 69 ml of nonionic contrast. Multiplanar reformatted images and three-dimensional images were obtained on the 3-D workstation and sent to the PACS archival system. COMPARISON: CT from 12/04/2024 FINDINGS: Imaged thyroid within normal limits. Debris within the trachea. No supraclavicular, axillary, or mediastinal lymphadenopathy. Heart size normal without pericardial effusion. Severe multivessel coronary artery calcifications. Normal caliber of the thoracic aorta. No pulmonary embolism. Bronchial mucus plugging and tree in bud nodularity at the right greater than left lung bases. Atelectasis the lung bases. No suspicious nodule, effusion, or pneumothorax. Bilateral calcified pleural plaques. Imaged portion of the abdomen shows no acute or contributory process. No aggressive osseous lesion. IMPRESSION: 1. No pulmonary embolism. 2. Findings of mild aspiration in the dependant lower lobes. 3. Bilateral calcified pleural plaques may be due to prior asbestosis exposure. Dictated by: Daron Jay MD The radiology attending physician has personally reviewed this study, and had reviewed and/or edited this written report and agrees with it. Electronically signed by: Geo Shelton M.D. Silverio Kendlal MD IMG CT PROCEDURES Final Result * (ABNORMAL) POCT glucose (12/24/2024 11:27 AM CDT) Glucose, POC 220(H) 70 - 199 mg/dL Comment:Glu2: RN/ Notified Glucose comment 1 Glu2: RN/ Notified [facility] Blood 12/24/2024 11:2 7 AM CDT 12/24/2024 11:27 AM CDT Silverio Kendall MD LAB POCT ORDERABLES - DEVICE Fin al Result Performing Organization Address [facility] [place] [address] * POCT glucose (12/24/2024 7:32 AM CDT) Glucose, POC 184 70 - 199 mg/dL Blood 12/24/2024 7:32 AM CDT 12/24/2024 7:32 AM CDT Silverio Kendall MD LAB POCT ORDERABLES - DEVICE Fin al Result Performing Organization Address [facility] [place] [address] * POCT glucose (12/24/2024 4:02 AM CDT) Glucose, POC 169 70 - 199 mg/dL Blood 12/24/2024 4:02 AM CDT 12/24/2024 4:02 AM CDT Silveroi Kendall MD LAB POCT ORDERABLES - DEVICE Fin al Result Performing Organization Address [facility] de Phone Number [facility] [place] [place] [address] * (ABNORMAL) POCT glucose (12/23/2024 11:59 PM CDT) Glucose, POC 211(H) 70 - 199 mg/dL Blood 12/23/2024 11:5 9 PM CDT 12/23/2024 11:59 PM CDT Silverio Kendall MD LAB POCT ORDERABLES - DEVICE Fin al Result Performing Organization Address City/[facility] Co de Phone Number [facility] [place] [address] * eGFR (12/23/2024 11:18 PM CDT) [facility] eGFR 70 >=60 mL/min/1. 73 m2 Comment: Interpretive Data [...] interpretive data was last reviewed 2021. Blood 12/23/2024 11:1 8 PM CDT 12/23/2024 11:50 PM CDT us Marlen Lynn MD LAB BLOOD ORDERABLES Katalina perales Result [facility] [place] [address] * Differential, auto (12/23/2024 11:18 PM CDT) [facility] Neutrophil abs 5.18 1.50 - 6.50 K/cumm Imm gran abs 0.03 0.00 - 0.10 K/cumm [facility] Lymphocyte abs 2.28 0.80 - 3.30 K/cumm [facility] Monocyte abs 0.69 0.20 - 0.80 K/cumm [facility] Eosinophil abs 0.24 0.00 - 0.50 K/cumm [facility] Basophil abs 0.06 0.00 - 0.10 K/cumm [facility] Neutrophil pct 61.1 % [facility] Comment: Interpretive Data Percent cell count reference ranges are not reported, since discordance with absolute values may lead to misinterpretation of CBC data. Current Interpretive Data was last revised on 2017. Imm gran pct 0.4 % [facility] Comment: Interpretive Data Percent cell count reference ranges are not reported, since discordance with absolute values may lead to misinterpretation of CBC data. Current Interpretive Data was last revised on 2017. Lymphocyte pct 26.9 % [facility] Comment: Interpretive Data Percent cell count reference ranges are not reported, since discordance with absolute values may lead to misinterpretation of CBC data. Current Interpretive Data was last revised on 2017. Monocyte pct 8.1 % [facility] Comment: Interpretive Data Percent cell count reference ranges are not reported, since discordance with absolute values may lead to misinterpretation of CBC data. Current Interpretive Data was last revised on 2017. Eosinophil pct 2.8 % [facility] Comment: Interpretive Data Percent cell count reference ranges are not reported, since discordance with absolute values may lead to misinterpretation of CBC data. Current Interpretive Data was last revised on 2017. Basophil pct 0.7 % [facility] Comment: Interpretive Data Percent cell count reference ranges are not reported, since discordance with absolute values may lead to misinterpretation of CBC data. Current Interpretive Data was last revised on 2017. Blood 12/23/2024 11:1 8 PM CDT 12/23/2024 11:50 PM CDT us Marlen Lynn MD LAB BLOOD ORDERABLES Katalina perales Result [facility] Department of Laboratories [place], [place] [id number] * (ABNORMAL) CBC with auto differential (12/23/2024 11:18 PM CDT) WBC 8.48 3.80 - 9.90 K/cumm Hgb 12.1(L) 13.0 - 17.5 g/dL [facility] Hct 37.9(L) 38.9 - 50.3 % [facility] Plt 342 150 - 400 K/cumm [facility] MPV 9.4 9.1 - 12.3 fL [facility] RBC 4.17(L) 4.30 - 5.80 M/cumm [facility] MCV 90.9 81.3 - 96.4 fL [facility] MCH 29.0 27.1 - 33.3 pg [facility] MCHC 31.9(L) 32.3 - 35.7 g/dL [facility] RDW CV 14.3 11.1 - 14.9 % [facility] RDW SD 47.8 35.7 - 48.1 fL [facility] NRBC abs 0.00 0.00 - 0.01 K/cumm [facility] Blood 12/23/2024 11:1 8 PM CDT 12/23/2024 11:50 PM CDT Malren Lynn MD LAB BLOOD ORDERABLES Katalina l Result [facility] Department [place] [address] * Phosphorus (12/23/2024 11:18 PM CDT) [facility] Phosphorus, pl 3.0 2.3 - 4.5 mg/dL Blood 12/23/2024 11:1 8 PM CDT 12/23/2024 11:50 PM CDT Marlen Lynn MD LAB BLOOD ORDERABLES Katalina l Result [facility] Department [place] [address] * (ABNORMAL) Basic metabolic panel (12/23/2024 11:18 PM CDT) [facility] Sodium 138 135 - 145 mmol/L Potassium, pl 4.5 3.3 - 4.9 mmol/L [facility] Chloride 101 97 - 110 mmol/L [facility] CO2 31 22 - 32 mmol/L [facility] Anion gap 6 2 - 15 mmol/L [facility] BUN 35(H) 6 - 25 mg/dL [facility] Creatinine 1.08 0.80 - 1.30 mg/dL [facility] Glucose 227(H) 70 - 199 mg/dL [facility] Comment: Interpretive Data Fasting glucose [...] 2022. Calcium 9.8 8.5 - 10.3 mg/dL [facility] Blood 12/23/2024 11:1 8 PM CDT 12/23/2024 11:50 PM CDT Marlen Lynn MD LAB BLOOD ORDERABLES Katalina l Result [facility] Department [place] [place] [address] * (ABNORMAL) POCT glucose (12/23/2024 9:13 PM CDT) [facility] Glucose, POC 211(H) 70 - 199 mg/dL Blood 12/23/2024 9:13 PM CDT 12/23/2024 9:13 PM CDT Silverio Kendall MD LAB POCT ORDERABLES - DEVICE Fin al Result Performing Organization Address City/[facility]/ZIP Co de Phone Number [facility] Department [place] [address] * POCT glucose (12/23/2024 5:01 PM CDT) Glucose, POC 192 70 - 199 mg/dL Blood 12/23/2024 5:01 PM CDT 12/23/2024 5:01 PM CDT Silverio Kendall MD LAB POCT ORDERABLES - DEVICE Fin al Result Performing Organization Address [facility] Co de Phone Number [facility] [place] [place] [address] * (ABNORMAL) POCT glucose (12/23/2024 11:21 AM CDT) Glucose, POC 201(H) 70 - 199 mg/dL Blood 12/23/2024 11:2 1 AM CDT 12/23/2024 11:21 AM CDT Silverio Kendall MD LAB POCT ORDERABLES - DEVICE Fin al Result Performing Organization Address [facility] de Phone Number [facility] [place] [place] [address] * (ABNORMAL) POCT glucose (12/23/2024 9:41 AM CDT) Glucose, POC 249(H) 70 - 199 mg/dL Blood 12/23/2024 9:41 AM CDT 12/23/2024 9:41 AM CDT Silverio Kendall MD LAB POCT ORDERABLES - DEVICE Fin al Result Performing Organization Address [facility] de Phone Number [facility] [place] [place] [address] * (ABNORMAL) POCT glucose (12/23/2024 4:05 AM CDT) Glucose, POC 213(H) 70 - 199 mg/dL Blood 12/23/2024 4:05 AM CDT 12/23/2024 4:05 AM CDT Silverio Kendall MD LAB POCT ORDERABLES - DEVICE Fin al Result Performing Organization Address City/[facility] Co de Phone Number [facility] [place] [address] * (ABNORMAL) POCT glucose (12/23/2024 12:31 AM CDT) Glucose, POC 217(H) 70 - 199 mg/dL Blood 12/23/2024 12:3 1 AM CDT 12/23/2024 12:31 AM CDT Silverio Kendall MD LAB POCT ORDERABLES - DEVICE Fin al Result Performing Organization Address [facility] de Phone Number [facility] [place] [address] * eGFR (12/22/2024 9:36 PM CDT) eGFR 88 >=60 mL/min/1. 73 m2 Comment: Interpretive Data [...] interpretive data was last reviewed 2021. Blood 12/22/2024 9:36 PM CDT 12/22/2024 10:31 PM CDT us Marlen Lynn MD LAB BLOOD ORDERABLES Katalina perales Result [facility] Department [place] [address] * (ABNORMAL) Differential, auto (12/22/2024 9:36 PM CDT) Neutrophil abs 6.97(H) 1.50 - 6.50 K/cumm Imm gran abs 0.03 0.00 - 0.10 K/cumm [facility] Lymphocyte abs 2.18 0.80 - 3.30 K/cumm [facility] Monocyte abs 0.92(H) 0.20 - 0.80 K/cumm [facility] Eosinophil abs 0.27 0.00 - 0.50 K/cumm [facility] Basophil abs 0.07 0.00 - 0.10 K/cumm [facility] Neutrophil pct 66.7 % [facility] Comment: Interpretive Data Percent cell count reference ranges are not reported, since discordance with absolute values may lead to misinterpretation of CBC data. Current Interpretive Data was last revised on 2017. Imm gran pct 0.3 % [facility] Comment: Interpretive Data Percent cell count reference ranges are not reported, since discordance with absolute values may lead to misinterpretation of CBC data. Current Interpretive Data was last revised on 2017. Lymphocyte pct 20.9 % [facility] Comment: Interpretive Data Percent cell count reference ranges are not reported, since discordance with absolute values may lead to misinterpretation of CBC data. Current Interpretive Data was last revised on 2017. Monocyte pct 8.8 % [facility] Comment: Interpretive Data Percent cell count reference ranges are not reported, since discordance with absolute values may lead to misinterpretation of CBC data. Current Interpretive Data was last revised on 2017. Eosinophil pct 2.6 % [facility] Comment: Interpretive Data Percent cell count reference ranges are not reported, since discordance with absolute values may lead to misinterpretation of CBC data. Current Interpretive Data was last revised on 2017. Basophil pct 0.7 % [facility] Comment: Interpretive Data Percent cell count reference ranges are not reported, since discordance with absolute values may lead to misinterpretation of CBC data. Current Interpretive Data was last revised on 2017. Blood 12/22/2024 9:36 PM CDT 12/22/2024 10:32 PM CDT Marlen Lynn MD LAB BLOOD ORDERABLES Katalina l Result [facility] Department [place] [address] * (ABNORMAL) CBC with auto differential (12/22/2024 9:36 PM CDT) [facility] WBC 10.44(H) 3.80 - 9.90 K/cumm Hgb 12.7(L) 13.0 - 17.5 g/dL [facility] Hct 39.1 38.9 - 50.3 % [facility] Plt 359 150 - 400 K/cumm [facility] MPV 9.5 9.1 - 12.3 fL [facility] RBC 4.34 4.30 - 5.80 M/cumm [facility] MCV 90.1 81.3 - 96.4 fL [facility] MCH 29.3 27.1 - 33.3 pg [facility] MCHC 32.5 32.3 - 35.7 g/dL [facility] RDW CV 14.3 11.1 - 14.9 % [facility] RDW SD 47.4 35.7 - 48.1 fL [facility] NRBC abs 0.00 0.00 - 0.01 K/cumm [facility] Blood 12/22/2024 9:36 PM CDT 12/22/2024 10:32 PM CDT Marlen Lynn MD LAB BLOOD ORDERABLES Katalina l Result Performing Organization Address City/[facility]/ZIP Co de Phone Number [facility] Department [place] [address] * Phosphorus (12/22/2024 9:36 PM CDT) Phosphorus, pl 2.5 2.3 - 4.5 mg/dL Blood 12/22/2024 9:36 PM CDT 12/22/2024 10:31 PM CDT Marlen Lynn MD LAB BLOOD ORDERABLES Katalina l Result [facility] Department [place] [address] * (ABNORMAL) Basic metabolic panel (12/22/2024 9:36 PM CDT) Pathologist [facility] Sodium 137 135 - 145 mmol/L Potassium, pl 4.6 3.3 - 4.9 mmol/L [facility] Chloride 100 97 - 110 mmol/L [facility] CO2 29 22 - 32 mmol/L [facility] Anion gap 8 2 - 15 mmol/L [facility] BUN 30(H) 6 - 25 mg/dL [facility] Creatinine 0.89 0.80 - 1.30 mg/dL [facility] Glucose 204(H) 70 - 199 mg/dL [facility] Comment: Interpretive Data Fasting glucose [...] 2022. Calcium 9.8 8.5 - 10.3 mg/dL [facility] Blood 12/22/2024 9:36 PM CDT 12/22/2024 10:31 PM CDT Marlen Lynn MD LAB BLOOD ORDERABLES Katalina l Result Performing Organization Address City/[facility] Co de Phone Number [facility] [place] [employer] [place] [address] * POCT glucose (12/22/2024 8:56 PM CDT) Glucose, POC 173 70 - 199 mg/dL Blood 12/22/2024 8:56 PM CDT 12/22/2024 8:56 PM CDT Silverio Kendall MD LAB POCT ORDERABLES - DEVICE Fin al Result Performing Organization Address [facility] [place] [address] * POCT glucose (12/22/2024 5:53 PM CDT) Glucose, POC 154 70 - 199 mg/dL Blood 12/22/2024 5:53 PM CDT 12/22/2024 5:53 PM CDT Silverio Kendall MD LAB POCT ORDERABLES - DEVICE Fin al Result Performing Organization Address [facility] Co de Phone Number [facility] [place] [place] [address] * POCT glucose (12/22/2024 4:04 PM CDT) Glucose, POC 180 70 - 199 mg/dL Blood 12/22/2024 4:04 PM CDT 12/22/2024 4:04 PM CDT Silverio Kendall MD LAB POCT ORDERABLES - DEVICE Fin al Result Performing Organization Address [facility] Co de Phone Number [facility] [place] [employer] [place] [address] * (ABNORMAL) POCT glucose (12/22/2024 12:03 PM CDT) Glucose, POC 202(H) 70 - 199 mg/dL Blood 12/22/2024 12:0 3 PM CDT 12/22/2024 12:03 PM CDT Silverio Kendall MD LAB POCT ORDERABLES - DEVICE Fin al Result Performing Organization Address [facility] Co de Phone Number [facility] [place] [employer] [place] [address] * POCT glucose (12/22/2024 10:26 AM CDT) Glucose, POC 197 70 - 199 mg/dL Blood 12/22/2024 10:2 6 AM CDT 12/22/2024 10:26 AM CDT Silverio Kendall MD LAB POCT ORDERABLES - DEVICE Fin al Result Performing Organization Address [facility] de Phone Number [facility] [place] [employer] [place] [address] * POCT glucose (12/22/2024 8:39 AM CDT) Glucose, POC 168 70 - 199 mg/dL Blood 12/22/2024 8:39 AM CDT 12/22/2024 8:39 AM CDT Silverio Kendall MD LAB POCT ORDERABLES - DEVICE Fin al Result Performing Organization Address [facility] de Phone Number [facility] [place] [employer] [place] [address] * (ABNORMAL) POCT glucose (12/22/2024 5:10 AM CDT) Glucose, POC 239(H) 70 - 199 mg/dL Blood 12/22/2024 5:10 AM CDT 12/22/2024 5:10 AM CDT Silverio Kendall MD LAB POCT ORDERABLES - DEVICE Fin al Result Performing Organization Address [facility] de Phone Number [facility] [place] [place] [address] * POCT glucose (12/22/2024 12:54 AM CDT) Glucose, POC 195 70 - 199 mg/dL Blood 12/22/2024 12:5 4 AM CDT 12/22/2024 12:54 AM CDT Silverio Kendall MD LAB POCT ORDERABLES - DEVICE Fin al Result Performing Organization Address [facility] de Phone Number [facility] [place] [place] [address] * POCT glucose (12/21/2024 9:04 PM CDT) Glucose, POC 188 70 - 199 mg/dL Blood 12/21/2024 9:04 PM CDT 12/21/2024 9:04 PM CDT Silverio Kendall MD LAB POCT ORDERABLES - DEVICE Fin al Result Performing Organization Address [facility] de Phone Number [facility] [place] [employer] [place] [address] * eGFR (12/21/2024 8:44 PM CDT) eGFR 89 >=60 mL/min/1. 73 m2 Comment: Interpretive Data [...] interpretive data was last reviewed 2021. Blood 12/21/2024 8:44 PM CDT 12/21/2024 9:45 PM CDT us Marlen Lynn MD LAB BLOOD ORDERABLES Katalina perales Result [facility] [place] [address] * Differential, auto (12/21/2024 8:44 PM CDT) Neutrophil abs 4.68 1.50 - 6.50 K/cumm Imm gran abs 0.02 0.00 - 0.10 K/cumm [facility] Lymphocyte abs 1.53 0.80 - 3.30 K/cumm [facility] Monocyte abs 0.54 0.20 - 0.80 K/cumm [facility] Eosinophil abs 0.27 0.00 - 0.50 K/cumm [facility] Basophil abs 0.06 0.00 - 0.10 K/cumm [facility] Neutrophil pct 66.0 % [facility] Comment: Interpretive Data Percent cell count reference ranges are not reported, since discordance with absolute values may lead to misinterpretation of CBC data. Current Interpretive Data was last revised on 2017. Imm gran pct 0.3 % [facility] Comment: Interpretive Data Percent cell count reference ranges are not reported, since discordance with absolute values may lead to misinterpretation of CBC data. Current Interpretive Data was last revised on 2017. Lymphocyte pct 21.5 % [facility] Comment: Interpretive Data Percent cell count reference ranges are not reported, since discordance with absolute values may lead to misinterpretation of CBC data. Current Interpretive Data was last revised on 2017. Monocyte pct 7.6 % [facility] Comment: Interpretive Data Percent cell count reference ranges are not reported, since discordance with absolute values may lead to misinterpretation of CBC data. Current Interpretive Data was last revised on 2017. Eosinophil pct 3.8 % [facility] Comment: Interpretive Data Percent cell count reference ranges are not reported, since discordance with absolute values may lead to misinterpretation of CBC data. Current Interpretive Data was last revised on 2017. Basophil pct 0.8 % [facility] Comment: Interpretive Data Percent cell count reference ranges are not reported, since discordance with absolute values may lead to misinterpretation of CBC data. Current Interpretive Data was last revised on 2017. Blood 12/21/2024 8:44 PM CDT 12/21/2024 9:45 PM CDT us Marlen Lynn MD LAB BLOOD ORDERABLES Katalina perales Result [facility] [place] [address] * (ABNORMAL) CBC with auto differential (12/21/2024 8:44 PM CDT) WBC 7.10 3.80 - 9.90 K/cumm Hgb 12.7(L) 13.0 - 17.5 g/dL [facility] Hct 38.3(L) 38.9 - 50.3 % [facility] Plt 369 150 - 400 K/cumm [facility] MPV 9.3 9.1 - 12.3 fL [facility] RBC 4.27(L) 4.30 - 5.80 M/cumm [facility] MCV 89.7 81.3 - 96.4 fL [facility] MCH 29.7 27.1 - 33.3 pg [facility] MCHC 33.2 32.3 - 35.7 g/dL [facility] RDW CV 14.6 11.1 - 14.9 % [facility] RDW SD 47.9 35.7 - 48.1 fL [facility] NRBC abs 0.00 0.00 - 0.01 K/cumm [facility] Blood 12/21/2024 8:44 PM CDT 12/21/2024 9:45 PM CDT Marlen Lynn MD LAB BLOOD ORDERABLES Katalina l Result [facility] [place] [address] * Phosphorus (12/21/2024 8:44 PM CDT) [facility] Phosphorus, pl 2.8 2.3 - 4.5 mg/dL Blood 12/21/2024 8:44 PM CDT 12/21/2024 9:45 PM CDT Marlen Lynn MD LAB BLOOD ORDERABLES Katalina l Result Performing Organization Address City/[facility] de Phone Number [facility] Department [place] [address] * (ABNORMAL) Basic metabolic panel (12/21/2024 8:44 PM CDT) [facility] Sodium 139 135 - 145 mmol/L Potassium, pl 4.6 3.3 - 4.9 mmol/L [facility] Chloride 102 97 - 110 mmol/L [facility] CO2 28 22 - 32 mmol/L [facility] Anion gap 9 2 - 15 mmol/L [facility] BUN 30(H) 6 - 25 mg/dL [facility] Creatinine 0.84 0.80 - 1.30 mg/dL [facility] Glucose 189 70 - 199 mg/dL [facility] Comment: Interpretive Data Fasting glucose [...] interpretive data was last revised 2022. Calcium 9.7 8.5 - 10.3 mg/dL [facility] Blood 12/21/2024 8:44 PM CDT 12/21/2024 9:45 PM CDT us Marlen Lynn MD LAB BLOOD ORDERABLES Katalina l Result Performing Organization Address City/[facility] Co de Phone Number [facility] Department [place] [address] * POCT glucose (12/21/2024 4:10 PM CDT) Glucose, POC 184 70 - 199 mg/dL Comment:Glu2: RN/MD Notified Glucose comment 1 Glu2: RN/MD Notified [facility] Blood 12/21/2024 4:10 PM CDT 12/21/2024 4:10 PM CDT us Silverio Kendall MD LAB POCT ORDERABLES - DEVICE Fin al Result Performing Organization Address City/[facility]/ZIP Co de Phone Number [facility] Department [place] [place] [address] * (ABNORMAL) POCT glucose (12/21/2024 11:06 AM CDT) Glucose, POC 209(H) 70 - 199 mg/dL Comment: Glu2: Critical Value Noted RN/MD Notified Glucose comment 2 RN/MD Notified [facility] Blood 12/21/2024 11:0 6 AM CDT 12/21/2024 11:06 AM CDT Silverio Kendall MD LAB POCT ORDERABLES - DEVICE Fin al Result Performing Organization Address [facility] [place] [address] * POCT glucose (12/21/2024 7:33 AM CDT) Glucose, POC 198 70 - 199 mg/dL Comment: Glu2: RN/MD Notified Critical Value Noted Glucose comment 1 Glu2: RN/MD Notified [facility] Glucose comment 2 Critical Value Noted [facility] Blood 12/21/2024 7:33 AM CDT 12/21/2024 7:33 AM CDT Silverio Kendall MD LAB POCT ORDERABLES - DEVICE Fin al Result Performing Organization Address [facility] de Phone Number [facility] [place] [address] * POCT glucose (12/21/2024 5:02 AM CDT) Glucose, POC 195 70 - 199 mg/dL Blood 12/21/2024 5:02 AM CDT 12/21/2024 5:02 AM CDT Silverio Kendall MD LAB POCT ORDERABLES - DEVICE Fin al Result Performing Organization Address [facility] de Phone Number [facility] [place] [address] * POCT glucose (12/20/2024 11:31 PM CDT) Glucose, POC 182 70 - 199 mg/dL Blood 12/20/2024 11:3 1 PM CDT 12/20/2024 11:31 PM CDT Silverio Kendall MD LAB POCT ORDERABLES - DEVICE Fin al Result Performing Organization Address [facility] [facility] de Phone Number [facility] Department [place] [address] * eGFR (12/20/2024 10:16 PM CDT) eGFR 88 >=60 mL/min/1. 73 m2 Comment: Interpretive Data [...] interpretive data was last reviewed 2021. Blood 12/20/2024 10:1 6 PM CDT 12/20/2024 11:41 PM CDT Marlen Lynn MD LAB BLOOD ORDERABLES Katalina l Result Performing Organization Address [facility] Co de Phone Number BR[facility] Department [place] [address] * (ABNORMAL) Differential, auto (12/20/2024 10:16 PM CDT) Neutrophil abs 6.70(H) 1.50 - 6.50 K/cumm Imm gran abs 0.04 0.00 - 0.10 K/cumm [facility] Lymphocyte abs 1.66 0.80 - 3.30 K/cumm [facility] Monocyte abs 0.76 0.20 - 0.80 K/cumm [facility] Eosinophil abs 0.22 0.00 - 0.50 K/cumm [facility] Basophil abs 0.05 0.00 - 0.10 K/cumm [facility] Neutrophil pct 71.1 % [facility] Comment: Interpretive Data Percent cell count reference ranges are not reported, since discordance with absolute values may lead to misinterpretation of CBC data. Current Interpretive Data was last revised on 2017. Imm gran pct 0.4 % [facility] Comment: Interpretive Data Percent cell count reference ranges are not reported, since discordance with absolute values may lead to misinterpretation of CBC data. Current Interpretive Data was last revised on 2017. Lymphocyte pct 17.6 % [facility] Comment: Interpretive Data Percent cell count reference ranges are not reported, since discordance with absolute values may lead to misinterpretation of CBC data. Current Interpretive Data was last revised on 2017. Monocyte pct 8.1 % [facility] Comment: Interpretive Data Percent cell count reference ranges are not reported, since discordance with absolute values may lead to misinterpretation of CBC data. Current Interpretive Data was last revised on 2017. Eosinophil pct 2.3 % [facility] Comment: Interpretive Data Percent cell count reference ranges are not reported, since discordance with absolute values may lead to misinterpretation of CBC data. Current Interpretive Data was last revised on 2017. Basophil pct 0.5 % [facility] Comment: Interpretive Data Percent cell count reference ranges are not reported, since discordance with absolute values may lead to misinterpretation of CBC data. Current Interpretive Data was last revised on 2017. Blood 12/20/2024 10:1 6 PM CDT 12/20/2024 11:41 PM CDT us Marlen Lynn MD LAB BLOOD ORDERABLES Katalina perales Result [facility] Department [place] [address] * (ABNORMAL) CBC with auto differential (12/20/2024 10:16 PM CDT) [facility] WBC 9.43 3.80 - 9.90 K/cumm Hgb 12.2(L) 13.0 - 17.5 g/dL [facility] Hct 36.6(L) 38.9 - 50.3 % [facility] Plt 370 150 - 400 K/cumm [facility] MPV 9.5 9.1 - 12.3 fL [facility] RBC 4.07(L) 4.30 - 5.80 M/cumm [facility] MCV 89.9 81.3 - 96.4 fL [facility] MCH 30.0 27.1 - 33.3 pg [facility] MCHC 33.3 32.3 - 35.7 g/dL [facility] RDW CV 14.6 11.1 - 14.9 % [facility] RDW SD 48.3(H) 35.7 - 48.1 fL [facility] NRBC abs 0.00 0.00 - 0.01 K/cumm [facility] Blood 12/20/2024 10:1 6 PM CDT 12/20/2024 11:41 PM CDT Marlen Lynn MD LAB BLOOD ORDERABLES Katalina l Result Performing Organization Address City/[facility]/ZIP Co de Phone Number [facility] Department [place] [employer] [place] [address] * Phosphorus (12/20/2024 10:16 PM CDT) [facility] Phosphorus, pl 3.1 2.3 - 4.5 mg/dL Blood 12/20/2024 10:1 6 PM CDT 12/20/2024 11:41 PM CDT Marlen Lynn MD LAB BLOOD ORDERABLES Katalina l Result Performing Organization Address City/[facility]/ZIP Co de Phone Number [facility] Department [place] [address] * (ABNORMAL) Basic metabolic panel (12/20/2024 10:16 PM CDT) Sodium 138 135 - 145 mmol/L Potassium, pl 4.5 3.3 - 4.9 mmol/L [facility] Chloride 102 97 - 110 mmol/L [facility] CO2 27 22 - 32 mmol/L [facility] Anion gap 9 2 - 15 mmol/L [facility] BUN 34(H) 6 - 25 mg/dL [facility] Creatinine 0.89 0.80 - 1.30 mg/dL [facility] Glucose 179 70 - 199 mg/dL [facility] Comment: Interpretive Data Fasting glucose [...] interpretive data was last revised 2022. Calcium 9.2 8.5 - 10.3 mg/dL [facility] Blood 12/20/2024 10:1 6 PM CDT 12/20/2024 11:41 PM CDT us Marlen Lynn MD LAB BLOOD ORDERABLES Katalina l Result Performing Organization Address City/[facility]/ZIP Co de Phone Number [facility] Department [place] [address] * POCT glucose (12/20/2024 8:36 PM CDT) Glucose, POC 179 70 - 199 mg/dL Blood 12/20/2024 8:36 PM CDT 12/20/2024 8:36 PM CDT us Silverio Kendall MD LAB POCT ORDERABLES - DEVICE Fin al Result Performing Organization Address [facility]/State/ZIP Co de Phone [facility] Department [place] [address] * POCT glucose (12/20/2024 4:31 PM CDT) Glucose, POC 177 70 - 199 mg/dL Blood 12/20/2024 4:31 PM CDT 12/20/2024 4:31 PM CDT us Silverio Kendall MD LAB POCT ORDERABLES - DEVICE Fin al Result [facility] Department [place] [address] * XR Chest 1 View (12/20/2024 3:35 PM CDT) Anatomical Region Laterality Modality Body, Chest N/A Digital Radiogra phy 12/21/2024 9:37 AM CDT Impressions 12/21/2024 9:37 AM CDT Comparison study dated 12/18/2024. Interval placement of a left PICC catheter is in place with tip coursing below the field of view study. Interval removal of the gastric tube. Ventriculoperitoneal shunt catheter is present. Stable bibasal atelectasis. No new focal lung consolidations. No effusion. No pneumothorax. Stable heart size. Dictated by: Mahad Kaye M.D. The radiology attending physician has personally reviewed this study, and had reviewed and/or edited this written report and agrees with it. Electronically signed by: Lashay Salgado M.D. Narrative 12/21/2024 9:37 AM CDT EXAMINATION: 1 view chest radiograph Procedure Note Lashay Salgado MD - 12/21/2024 EXAMINATION: 1 view chest radiograph IMPRESSION: Comparison study dated 12/18/2024. Interval placement of a left PICC catheter is in place with tip coursing below the field of view study. Interval removal of the gastric tube. Ventriculoperitoneal shunt catheter is present. Stable bibasal atelectasis. No new focal lung consolidations. No effusion. No pneumothorax. Stable heart size. Dictated by: Mahad Kaye M.D. The radiology attending physician has personally reviewed this study, and had reviewed and/or edited this written report and agrees with it. Electronically signed by: Lashay Salgado M.D. Silverio Kendall MD IMG XR PROCEDURES Final Result * (ABNORMAL) POCT glucose (12/20/2024 11:26 AM CDT) Glucose, POC 224(H) 70 - 199 mg/dL Comment:Glu2: RN/MD Notified Glucose comment 1 Glu2: RN/MD Notified [facility] Blood 12/20/2024 11:2 6 AM CDT 12/20/2024 11:26 AM CDT Silverio Kendall MD LAB POCT ORDERABLES - DEVICE Fin al Result Performing Organization Address City/[facility] Co de Phone Number [facility] Department [place] [place] [address] * POCT glucose (12/20/2024 7:49 AM CDT) Glucose, POC 195 70 - 199 mg/dL Blood 12/20/2024 7:49 AM CDT 12/20/2024 7:49 AM CDT Silverio Kendall MD LAB POCT ORDERABLES - DEVICE Fin al Result Performing Organization Address City/[facility] Co de Phone Number [facility] [place] [place] [address] * POCT glucose (12/20/2024 3:41 AM CDT) Glucose, POC 152 70 - 199 mg/dL Blood 12/20/2024 3:41 AM CDT 12/20/2024 3:41 AM CDT Silverio Kendall MD LAB POCT ORDERABLES - DEVICE Fin al Result Performing Organization Address City/[facility] Co de Phone Number [facility]N [facility] Department [place] [address] * POCT glucose (12/19/2024 11:31 PM CDT) Glucose, POC 165 70 - 199 mg/dL Blood 12/19/2024 11:3 1 PM CDT 12/19/2024 11:31 PM CDT Silverio Kendall MD LAB POCT ORDERABLES - DEVICE Fin al Result Performing Organization Address [facility] de Phone Number BRENNAN [facility] Department [place] [address] * eGFR (12/19/2024 10:17 PM CDT) eGFR 74 >=60 mL/min/1. 73 m2 Comment: Interpretive Data [...] interpretive data was last reviewed 2021. Blood 12/19/2024 10:1 7 PM CDT 12/19/2024 11:26 PM CDT us Marlen Lynn MD LAB BLOOD ORDERABLES Katalina perales Result [facility] Department [place] [address] * (ABNORMAL) Differential, auto (12/19/2024 10:17 PM CDT) Neutrophil abs 6.68(H) 1.50 - 6.50 K/cumm Imm gran abs 0.02 0.00 - 0.10 K/cumm [facility] Lymphocyte abs 2.14 0.80 - 3.30 K/cumm [facility] Monocyte abs 0.81(H) 0.20 - 0.80 K/cumm [facility] Eosinophil abs 0.34 0.00 - 0.50 K/cumm [facility] Basophil abs 0.06 0.00 - 0.10 K/cumm [facility] Neutrophil pct 66.4 % [facility] Comment: Interpretive Data Percent cell count reference ranges are not reported, since discordance with absolute values may lead to misinterpretation of CBC data. Current Interpretive Data was last revised on 2017. Imm gran pct 0.2 % [facility] Comment: Interpretive Data Percent cell count reference ranges are not reported, since discordance with absolute values may lead to misinterpretation of CBC data. Current Interpretive Data was last revised on 2017. Lymphocyte pct 21.3 % [facility] Comment: Interpretive Data Percent cell count reference ranges are not reported, since discordance with absolute values may lead to misinterpretation of CBC data. Current Interpretive Data was last revised on 2017. Monocyte pct 8.1 % [facility] Comment: Interpretive Data Percent cell count reference ranges are not reported, since discordance with absolute values may lead to misinterpretation of CBC data. Current Interpretive Data was last revised on 2017. Eosinophil pct 3.4 % [facility] Comment: Interpretive Data Percent cell count reference ranges are not reported, since discordance with absolute values may lead to misinterpretation of CBC data. Current Interpretive Data was last revised on 2017. Basophil pct 0.6 % [facility] Comment: Interpretive Data Percent cell count reference ranges are not reported, since discordance with absolute values may lead to misinterpretation of CBC data. Current Interpretive Data was last revised on 2017. Blood 12/19/2024 10:1 7 PM CDT 12/19/2024 11:26 PM CDT Marlen Lynn MD LAB BLOOD ORDERABLES Katalina l Result Performing Organization Address [facility] Co de Phone Number [facility] Department [place] [address] * (ABNORMAL) CBC with auto differential (12/19/2024 10:17 PM CDT) WBC 10.05(H) 3.80 - 9.90 K/cumm Hgb 12.4(L) 13.0 - 17.5 g/dL [facility] Hct 37.8(L) 38.9 - 50.3 % [facility] Plt 371 150 - 400 K/cumm [facility] MPV 9.2 9.1 - 12.3 fL [facility] RBC 4.18(L) 4.30 - 5.80 M/cumm [facility] MCV 90.4 81.3 - 96.4 fL [facility] MCH 29.7 27.1 - 33.3 pg [facility] MCHC 32.8 32.3 - 35.7 g/dL [facility] RDW CV 15.2(H) 11.1 - 14.9 % [facility] RDW SD 50.2(H) 35.7 - 48.1 fL [facility] NRBC abs 0.00 0.00 - 0.01 K/cumm [facility] Blood 12/19/2024 10:1 7 PM CDT 12/19/2024 11:26 PM CDT Marlen Lynn MD LAB BLOOD ORDERABLES Katalina l Result Performing Organization Address [facility] Co de Phone Number [facility] Department [place] [address] * Phosphorus (12/19/2024 10:17 PM CDT) Phosphorus, pl 3.6 2.3 - 4.5 mg/dL Blood 12/19/2024 10:1 7 PM CDT 12/19/2024 11:26 PM CDT Marlen Lynn MD LAB BLOOD ORDERABLES Katalina l Result [facility] Department [place] [address] * (ABNORMAL) Basic metabolic panel (12/19/2024 10:17 PM CDT) Pathologist [facility] Sodium 134(L) 135 - 145 mmol/L Potassium, pl 3.9 3.3 - 4.9 mmol/L [facility] Chloride 100 97 - 110 mmol/L [facility] CO2 22 22 - 32 mmol/L [facility] Anion gap 12 2 - 15 mmol/L [facility] BUN 27(H) 6 - 25 mg/dL [facility] Creatinine 1.03 0.80 - 1.30 mg/dL [facility] Glucose 175 70 - 199 mg/dL [facility] Comment: Interpretive Data Fasting glucose [...] interpretive data was last revised 2022. Calcium 9.6 8.5 - 10.3 mg/dL [facility] Blood 12/19/2024 10:1 7 PM CDT 12/19/2024 11:26 PM CDT Marlen Lynn MD LAB BLOOD ORDERABLES Katalina l Result Performing Organization Address City/[facility] Co de Phone Number [facility] [employer] [place] [address] * POCT glucose (12/19/2024 8:07 PM CDT) Glucose, POC 153 70 - 199 mg/dL Blood 12/19/2024 8:07 PM CDT 12/19/2024 8:07 PM CDT Silverio Kendall MD LAB POCT ORDERABLES - DEVICE Fin al Result Performing Organization Address [facility] [place] [address] * POCT glucose (12/19/2024 5:25 PM CDT) Glucose, POC 125 70 - 199 mg/dL Blood 12/19/2024 5:2 5 PM CDT 12/19/2024 5:25 PM CDT Silverio Kendall MD LAB POCT ORDERABLES - DEVICE Fin al Result Performing Organization Address [facility] Co de Phone Number [facility] [place] [place] [address] * POCT glucose (12/19/2024 3:06 PM CDT) Glucose, POC 123 70 - 199 mg/dL Blood 12/19/2024 3:06 PM CDT 12/19/2024 3:06 PM CDT Silverio Kendall MD LAB POCT ORDERABLES - DEVICE Fin al Result Performing Organization Address [facility] Co de Phone Number [facility] [employer] [place] [address] * POCT glucose (12/19/2024 11:24 AM CDT) Glucose, POC 165 70 - 199 mg/dL Blood 12/19/2024 11:2 4 AM CDT 12/19/2024 11:24 AM CDT Silverio Kendall MD LAB POCT ORDERABLES - DEVICE Fin al Result Performing Organization Address City/[facility] Co de Phone Number [facility] [employer] [place] [address] * POCT glucose (12/19/2024 7:33 AM CDT) Glucose, POC 167 70 - 199 mg/dL Blood 12/19/2024 7:33 AM CDT 12/19/2024 7:33 AM CDT Silverio Kendall MD LAB POCT ORDERABLES - DEVICE Fin al Result Performing Organization Address [facility] de Phone Number [facility] [employer] [place] [address] * POCT glucose (12/19/2024 6:11 AM CDT) Glucose, POC 168 70 - 199 mg/dL Blood 12/19/2024 6:11 AM CDT 12/19/2024 6:11 AM CDT Silverio Kendall MD LAB POCT ORDERABLES - DEVICE Fin al Result Performing Organization Address [facility] de Phone Number [facility] [employer] [place] [address] * eGFR (12/19/2024 3:57 AM CDT) eGFR 76 >=60 mL/min/1. 73 m2 [...] interpretive data was last reviewed 2021. Blood 12/19/2024 3:57 AM CDT 12/19/2024 4:22 AM CDT Marlen Lynn MD LAB BLOOD ORDERABLES Katalina perales Result [facility] Department [place] [address] * (ABNORMAL) Differential, auto (12/19/2024 3:57 AM CDT) Neutrophil abs 9.13(H) 1.50 - 6.50 K/cumm Imm gran abs 0.06 0.00 - 0.10 K/cumm [facility] Lymphocyte abs 1.67 0.80 - 3.30 K/cumm [facility] Monocyte abs 0.89(H) 0.20 - 0.80 K/cumm [facility] Eosinophil abs 0.19 0.00 - 0.50 K/cumm [facility] Basophil abs 0.08 0.00 - 0.10 K/cumm [facility] Neutrophil pct 75.9 % [facility] Comment: Interpretive Data Percent cell count reference ranges are not reported, since discordance with absolute values may lead to misinterpretation of CBC data. Current Interpretive Data was last revised on 2017. Imm gran pct 0.5 % [facility] Comment: Interpretive Data Percent cell count reference ranges are not reported, since discordance with absolute values may lead to misinterpretation of CBC data. Current Interpretive Data was last revised on 2017. Lymphocyte pct 13.9 % [facility] Comment: Interpretive Data Percent cell count reference ranges are not reported, since discordance with absolute values may lead to misinterpretation of CBC data. Current Interpretive Data was last revised on 2017. Monocyte pct 7.4 % [facility] Comment: Interpretive Data Percent cell count reference ranges are not reported, since discordance with absolute values may lead to misinterpretation of CBC data. Current Interpretive Data was last revised on 2017. Eosinophil pct 1.6 % [facility] Comment: Interpretive Data Percent cell count reference ranges are not reported, since discordance with absolute values may lead to misinterpretation of CBC data. Current Interpretive Data was last revised on 2017. Basophil pct 0.7 % [facility] Comment: Interpretive Data Percent cell count reference ranges are not reported, since discordance with absolute values may lead to misinterpretation of CBC data. Current Interpretive Data was last revised on 2017. Blood 12/19/2024 3:57 AM CDT 12/19/2024 4:22 AM CDT us Marlen Lynn MD LAB BLOOD ORDERABLES Katalina perales Result [facility] Department [place] [address] * (ABNORMAL) CBC with auto differential (12/19/2024 3:57 AM CDT) WBC 12.02(H) 3.80 - 9.90 K/cumm Hgb 12.4(L) 13.0 - 17.5 g/dL [facility] Hct 37.4(L) 38.9 - 50.3 % [facility] Plt 388 150 - 400 K/cumm [facility] MPV 9.3 9.1 - 12.3 fL [facility] RBC 4.22(L) 4.30 - 5.80 M/cumm [facility] MCV 88.6 81.3 - 96.4 fL [facility] MCH 29.4 27.1 - 33.3 pg [facility] MCHC 33.2 32.3 - 35.7 g/dL [facility] RDW CV 15.1(H) 11.1 - 14.9 % [facility] RDW SD 49.0(H) 35.7 - 48.1 fL [facility] NRBC abs 0.00 0.00 - 0.01 K/cumm [facility] Blood 12/19/2024 3:57 AM CDT 12/19/2024 4:22 AM CDT Marlen Lynn MD LAB BLOOD ORDERABLES Katalina l Result Performing Organization Address [facility] Co de Phone Number [facility] Department [place] [address] * Phosphorus (12/19/2024 3:57 AM CDT) Phosphorus, pl 4.1 2.3 - 4.5 mg/dL Blood 12/19/2024 3:57 AM CDT 12/19/2024 4:22 AM CDT Result [facility] Marlen Lynn MD LAB BLOOD ORDERABLES Katalina l Result Performing Organization Address [facility] Co de Phone Number [facility] [place] [address] * Magnesium (12/19/2024 3:57 AM CDT) Magnesium 2.0 1.4 - 2.5 mg/dL Blood 12/19/2024 3:57 AM CDT 12/19/2024 4:22 AM CDT Marlen Lynn MD LAB BLOOD ORDERABLES Katalina l Result Performing Organization Address [facility]/ZIP Co de Phone Number [facility] Department [place] [address] * Basic metabolic panel (12/19/2024 3:57 AM CDT) Sodium 138 135 - 145 mmol/L Potassium, pl 4.6 3.3 - 4.9 mmol/L [facility] Chloride 105 97 - 110 mmol/L [facility] CO2 24 22 - 32 mmol/L [facility] Anion gap 9 2 - 15 mmol/L [facility] BUN 25 6 - 25 mg/dL [facility] Creatinine 1.01 0.80 - 1.30 mg/dL [facility] Glucose 186 70 - 199 mg/dL [facility] Comment: Interpretive Data Fasting glucose [...] interpretive data was last revised 2022. Calcium 9.5 8.5 - 10.3 mg/dL [facility] Blood 12/19/2024 3:57 AM CDT 12/19/2024 4:22 AM CDT us Marlen Lynn MD LAB BLOOD ORDERABLES Katalina l Result Performing Organization Address [facility]/ZIP Co de Phone Number [facility] Department [place] [address] * POCT glucose (12/19/2024 2:15 AM CDT) Glucose, POC 161 70 - 199 mg/dL Blood 12/19/2024 2:15 AM CDT 12/19/2024 2:15 AM CDT Silverio Kendall MD LAB POCT ORDERABLES - DEVICE Fin al Result Performing Organization Address City/[facility] Co de Phone Number BRENNAN TOLBERT A[facility] [place] [employer] [place] [address] * POCT glucose (12/18/2024 7:42 PM CDT) Glucose, POC 159 70 - 199 mg/dL Blood 12/18/2024 7:42 PM CDT 12/18/2024 7:42 PM CDT Silverio Kendall MD LAB POCT ORDERABLES - DEVICE Fin al Result Performing Organization Address [facility] de Phone Number [facility] [place] [address] * XR Chest 1 View (12/18/2024 4:21 PM CDT) Anatomical Region Laterality Modality Body, Chest N/A Computed Radiogr aphy 12/18/2024 4:29 PM CDT Impressions 12/18/2024 4:29 PM CDT Comparison 12/17/2024. Gastric tube courses caudal to the diaphragm. Calcified pleural plaques again seen. Mild right basilar atelectasis increased with associated elevation of the right hemidiaphragm. No focal consolidation seen. No pneumothorax or pleural effusion seen. Cardiomediastinal silhouette stable, given the smaller lung volumes. Electronically signed by: Ed Garcia M.D. Narrative 12/18/2024 4:29 PM CDT EXAMINATION: 1 view chest radiograph Procedure Note Ed Garcia MD - 12/18/2024 EXAMINATION: 1 view chest radiograph IMPRESSION: Comparison 12/17/2024. Gastric tube courses caudal to the diaphragm. Calcified pleural plaques again seen. Mild right basilar atelectasis increased with associated elevation of the right hemidiaphragm. No focal consolidation seen. No pneumothorax or pleural effusion seen. Cardiomediastinal silhouette stable, given the smaller lung volumes. Electronically signed by: Ed Garcia M.D. Silverio Kendall MD IMG XR PROCEDURES Final Result * POCT glucose (12/18/2024 4:12 PM CDT) Glucose, POC 165 70 - 199 mg/dL Blood 12/18/2024 4:12 PM CDT 12/18/2024 4:12 PM CDT Result [facility] Silverio Kendall MD LAB POCT ORDERABLES - DEVICE Fin al Result Performing Organization Address [facility] Co de Phone Number [facility] [place] [place] [address] * POCT glucose (12/18/2024 1:50 PM CDT) Glucose, POC 168 70 - 199 mg/dL Blood 12/18/2024 1:50 PM CDT 12/18/2024 1:50 PM CDT Result [facility] Silverio Kendall MD LAB POCT ORDERABLES - DEVICE Fin al Result Performing Organization Address [facility] de Phone Number [facility] [place] [place] [address] * POCT glucose (12/18/2024 11:49 AM CDT) Glucose, POC 185 70 - 199 mg/dL Blood 12/18/2024 11:4 9 AM CDT 12/18/2024 11:49 AM CDT Silverio Kendall MD LAB POCT ORDERABLES - DEVICE Fin al Result Performing Organization Address [facility] Co de Phone Number [facility] Department [place] [address] * IR G Tube Placement Percutaneous (12/18/2024 9:27 AM CDT) Anatomical Region Laterality Modality Body N/A X-Ray Angiograph y 12/18/2024 9:53 AM CDT Impressions 12/18/2024 8:28 PM CDT Successful placement of a 16 Indian gastrostomy catheter with gastropexy. PLAN: The gastrostomy catheter will remain to gravity drainage overnight. It may be used for administration of liquid medications. The tube should be capped after administration of the medication for an hour and then reconnected to gravity drainage. The output should be recorded every shift. The patient will be examined in the morning prior to clearing the catheter for usage for tube feeds. Feedings will likely start in a day and be advanced to goal before discharge The gastropexy sutures are resorbable and do not need to be removed. Dictated by: Jayesh Nickerson M.D. The radiology attending physician has personally reviewed this study, and had reviewed and/or edited this written report and agrees with it. Electronically signed by: MD Dilip Anglin 12/18/2024 8:28 PM CDT EXAMINATION: PERCUTANEOUS GASTROSTOMY CATHETER PLACEMENT INDICATION: 79-year-old male, history of stroke, dysphasia. Patient presents for feeding tube placement. ATTENDING PRESENCE: Jesus Marshall MD, the attending radiologist was present from the beginning to the end of the procedure. SEDATION: Procedural sedation was administered under the attending physician's direction and continuous monitoring by a trained nurse specialist who was independent from those actually performing the procedure. Total monitored sedation time was 16 minutes. TECHNIQUE: The risks, benefits and alternatives were discussed and informed consent was obtained. Prior to beginning the procedure, Mountain Protocol was performed to confirm the patient's identity and the planned procedure. The fluoroscopy time has been recorded in the electronic medical record. Maximum sterile barriers including cap, mask, hand hygiene, sterile gloves, sterile gown, large sterile drape and 2% chlorhexidine for cutaneous antisepsis were used. The skin over the stomach was sterilely prepped, draped and infiltrated with 1% lidocaine and 1 mg of intravenous glucagon was administered. The existing NG tube was used to inject air to distend the stomach and fluoroscopy was used to determine a safe tract to the stomach. The stomach was then accessed under fluoroscopic guidance and 2 T-tacs were placed, which were anchored to the skin. The stomach was then accessed with an 18 gauge needle. The tract was dilated over a guidewire to 18 Indian. Next, an 18 Indian peel-away sheath was placed in the stomach and the guidewire and the inner dilator were removed. Subsequently, a 16 balloon retention type catheter was advanced into the stomach through the peel-away sheath and the sheath was removed. The balloon was inflated with 10 cc of dilute contrast. The catheter was secured to the skin with the bumper and connected to gravity drainage. ESTIMATED BLOOD LOSS: Minimal. CONDITION: Stable DISCHARGED TO: Patient care division. FINDINGS: Final fluoroscopic images demonstrate the gastrostomy catheter with its tip in the body of the stomach. No complications are identified. Procedure Note Jesus Marshall MD - 12/18/2024 EXAMINATION: PERCUTANEOUS GASTROSTOMY CATHETER PLACEMENT INDICATION: 79-year-old male, history of stroke, dysphasia. Patient presents for feeding tube placement. ATTENDING PRESENCE: Jesus Marshall MD, the attending radiologist was present from the beginning to the end of the procedure. SEDATION: Procedural sedation was administered under the attending physician's direction and continuous monitoring by a trained nurse specialist who was independent from those actually performing the procedure. Total monitored sedation time was 16 minutes. TECHNIQUE: The risks, benefits and alternatives were discussed and informed consent was obtained. Prior to beginning the procedure, Mountain Protocol was performed to confirm the patient's identity and the planned procedure. The fluoroscopy time has been recorded in the electronic medical record. Maximum sterile barriers including cap, mask, hand hygiene, sterile gloves, sterile gown, large sterile drape and 2% chlorhexidine for cutaneous antisepsis were used. The skin over the stomach was sterilely prepped, draped and infiltrated with 1% lidocaine and 1 mg of intravenous glucagon was administered. The existing NG tube was used to inject air to distend the stomach and fluoroscopy was used to determine a safe tract to the stomach. The stomach was then accessed under fluoroscopic guidance and 2 T-tacs were placed, which were anchored to the skin. The stomach was then accessed with an 18 gauge needle. The tract was dilated over a guidewire to 18 Indian. Next, an 18 Indian peel-away sheath was placed in the stomach and the guidewire and the inner dilator were removed. Subsequently, a 16 balloon retention type catheter was advanced into the stomach through the peel-away sheath and the sheath was removed. The balloon was inflated with 10 cc of dilute contrast. The catheter was secured to the skin with the bumper and connected to gravity drainage. ESTIMATED BLOOD LOSS: Minimal. CONDITION: Stable DISCHARGED TO: Patient care division. FINDINGS: Final fluoroscopic images demonstrate the gastrostomy catheter with its tip in the body of the stomach. No complications are identified. IMPRESSION: Successful placement of a 16 Indian gastrostomy catheter with gastropexy. PLAN: The gastrostomy catheter will remain to gravity drainage overnight. It may be used for administration of liquid medications. The tube should be capped after administration of the medication for an hour and then reconnected to gravity drainage. The output should be recorded every shift. The patient will be examined in the morning prior to clearing the catheter for usage for tube feeds. Feedings will likely start in a day and be advanced to goal before discharge The gastropexy sutures are resorbable and do not need to be removed. Dictated by: Jayesh Nickerson M.D. The radiology attending physician has personally reviewed this study, and had reviewed and/or edited this written report and agrees with it. Electronically signed by: Jesus Marshall MD Marlen Lynn MD IMG IR PROCEDURES Final R esult * (ABNORMAL) POCT glucose (12/18/2024 7:41 AM CDT) [facility] Glucose, POC 208(H) 70 - 199 mg/dL Comment:Glu2: PATRICIA/ Notified Glucose comment 1 Glu2: PATRICIA/ Notified [facility] Blood 12/18/2024 7:41 AM CDT 12/18/2024 7:41 AM CDT Silverio Kendall MD LAB POCT ORDERABLES - DEVICE Fin al Result [facility] Department [place] [address] * (ABNORMAL) POCT glucose (12/18/2024 4:52 AM CDT) Glucose, POC 250(H) 70 - 199 mg/dL Blood 12/18/2024 4:52 AM CDT 12/18/2024 4:52 AM CDT Silverio Kendall MD LAB POCT ORDERABLES - DEVICE Fin al Result Performing Organization Address City/[facility] Co de Phone Number [facility] [place] [address] * (ABNORMAL) POCT glucose (12/18/2024 1:38 AM CDT) Glucose, POC 262(H) 70 - 199 mg/dL Blood 12/18/2024 1:38 AM CDT 12/18/2024 1:38 AM CDT Silverio Kendall MD LAB POCT ORDERABLES - DEVICE Fin al Result Performing Organization Address City/[facility] de Phone Number [facility] [place] [address] * eGFR (12/17/2024 11:53 PM CDT) eGFR 90 >=60 mL/min/1. 73 m2 Comment: Interpretive Data [...] interpretive data was last reviewed 2021. Blood 12/17/2024 11:5 3 PM CDT 12/18/2024 12:40 AM CDT Marlen Lynn MD LAB BLOOD ORDERABLES Katalina angella Result [facility] Department [place] [address] * (ABNORMAL) Differential, auto (12/17/2024 11:53 PM CDT) Neutrophil abs 7.84(H) 1.50 - 6.50 K/cumm Imm gran abs 0.06 0.00 - 0.10 K/cumm [facility] Lymphocyte abs 1.72 0.80 - 3.30 K/cumm [facility] Monocyte abs 0.91(H) 0.20 - 0.80 K/cumm [facility] Eosinophil abs 0.38 0.00 - 0.50 K/cumm [facility] Basophil abs 0.10 0.00 - 0.10 K/cumm [facility] Neutrophil pct 71.2 % [facility] Comment: Interpretive Data Percent cell count reference ranges are not reported, since discordance with absolute values may lead to misinterpretation of CBC data. Current Interpretive Data was last revised on 2017. Imm gran pct 0.5 % [facility] Comment: Interpretive Data Percent cell count reference ranges are not reported, since discordance with absolute values may lead to misinterpretation of CBC data. Current Interpretive Data was last revised on 2017. Lymphocyte pct 15.6 % [facility] Comment: Interpretive Data Percent cell count reference ranges are not reported, since discordance with absolute values may lead to misinterpretation of CBC data. Current Interpretive Data was last revised on 2017. Monocyte pct 8.3 % [facility] Comment: Interpretive Data Percent cell count reference ranges are not reported, since discordance with absolute values may lead to misinterpretation of CBC data. Current Interpretive Data was last revised on 2017. Eosinophil pct 3.5 % [facility] Comment: Interpretive Data Percent cell count reference ranges are not reported, since discordance with absolute values may lead to misinterpretation of CBC data. Current Interpretive Data was last revised on 2017. Basophil pct 0.9 % [facility] Comment: Interpretive Data Percent cell count reference ranges are not reported, since discordance with absolute values may lead to misinterpretation of CBC data. Current Interpretive Data was last revised on 2017. Blood 12/17/2024 11:5 3 PM CDT 12/18/2024 12:40 AM CDT us Marlen Lynn MD LAB BLOOD ORDERABLES Katalina perales Result [facility] [place] [address] * (ABNORMAL) CBC with auto differential (12/17/2024 11:53 PM CDT) WBC 11.01(H) 3.80 - 9.90 K/cumm Hgb 13.2 13.0 - 17.5 g/dL [facility] Hct 39.6 38.9 - 50.3 % [facility] Plt 405(H) 150 - 400 K/cumm [facility] MPV 9.3 9.1 - 12.3 fL [facility] RBC 4.49 4.30 - 5.80 M/cumm [facility] MCV 88.2 81.3 - 96.4 fL [facility] MCH 29.4 27.1 - 33.3 pg [facility] MCHC 33.3 32.3 - 35.7 g/dL [facility] RDW CV 14.7 11.1 - 14.9 % [facility] RDW SD 47.5 35.7 - 48.1 fL [facility] NRBC abs 0.00 0.00 - 0.01 K/cumm [facility] Blood 12/17/2024 11:5 3 PM CDT 12/18/2024 12:40 AM CDT Marlen Lynn MD LAB BLOOD ORDERABLES Katalina l Result Performing Organization Address City/[facility] Co de Phone Number [facility] [place] [place] [address] * Protime-INR (12/17/2024 11:53 PM CDT) PT 11.6 10.2 - 13.5 sec INR 1.03 0.90 - 1.20 [facility] Comment: Interpretive data Oral anticoagulant therapeutic ranges: Venous thromboembolism prophylaxis or treatment: 2.0-3.0 CARDIOLOGY Standard range: 2.0-3.0 High-intensity range: 2.5-3.5 Refer to indication-specific guidelines for appropriate target ranges for prosthetic heart valve replacement. Current interpretive data was last revised on 2019. Blood 12/17/2024 11:5 3 PM CDT 12/18/2024 12:35 AM CDT Marlen Lynn MD LAB BLOOD ORDERABLES Katalina l Result Performing Organization Address [facility] Co de Phone Number [facility] [place] [address] * Phosphorus (12/17/2024 11:53 PM CDT) Pathologist [facility] Phosphorus, pl 3.5 2.3 - 4.5 mg/dL Blood 12/17/2024 11:5 3 PM CDT 12/18/2024 12:40 AM CDT Marlen Lynn MD LAB BLOOD ORDERABLES Katalina l Result Performing Organization Address City/[facility] [place] [address] * Magnesium (12/17/2024 11:53 PM CDT) Pathologist [facility] Magnesium 2.0 1.4 - 2.5 mg/dL Blood 12/17/2024 11:5 3 PM CDT 12/18/2024 12:40 AM CDT Marlen Lynn MD LAB BLOOD ORDERABLES Katalina l Result Performing Organization Address City/[facility]/ZIP Co de Phone Number [facility] Department [place] [address] * (ABNORMAL) Basic metabolic panel (12/17/2024 11:53 PM CDT) [facility] Sodium 136 135 - 145 mmol/L Potassium, pl 4.9 3.3 - 4.9 mmol/L [facility] Chloride 101 97 - 110 mmol/L [facility] CO2 25 22 - 32 mmol/L [facility] Anion gap 10 2 - 15 mmol/L [facility] BUN 21 6 - 25 mg/dL [facility] Creatinine 0.83 0.80 - 1.30 mg/dL [facility] Glucose 251(H) 70 - 199 mg/dL [facility] Comment: Interpretive Data Fasting glucose [...] 2022. Calcium 9.8 8.5 - 10.3 mg/dL [facility] Blood 12/17/2024 11:5 3 PM CDT 12/18/2024 12:40 AM CDT Marlen Lynn MD LAB BLOOD ORDERABLES Katalina l Result Performing Organization Address [facility] Co de Phone Number [facility] [place] [address] * (ABNORMAL) POCT glucose (12/17/2024 8:15 PM CDT) Glucose, POC 236(H) 70 - 199 mg/dL Blood 12/17/2024 8:15 PM CDT 12/17/2024 8:15 PM CDT Marlen Lynn MD LAB POCT ORDERABLES - DEV ICE Final Result Performing Organization Address City/[facility] [place] [address] * (ABNORMAL) POCT glucose (12/17/2024 4:13 PM CDT) Glucose, POC 261(H) 70 - 199 mg/dL Comment:Glu2: RN/MD Notified Glucose comment 1 Glu2: RN/MD Notified [facility] Blood 12/17/2024 4:13 PM CDT 12/17/2024 4:13 PM CDT Marlen Lynn MD LAB POCT ORDERABLES - DEV ICE Final Result Performing Organization Address City/[facility] [place] [address] * XR Chest 1 View (12/17/2024 11:43 AM CDT) Anatomical Region Laterality Modality Body, Chest N/A Digital Radiogra phy 12/17/2024 12:0 9 PM CDT Impressions 12/17/2024 12:09 PM CDT Comparison 12/11/2024 5:23 PM. Gastric tube now in place coursing caudal to the diaphragm. Left sided ventriculoperitoneal shunt catheter again noted. Calcified pleural plaques again seen. Mild right base atelectasis unchanged. No focal consolidation seen. No pneumothorax or pleural effusion seen. Heart size and mediastinal contour remain within normal limits. Electronically signed by: Ed Garcia M.D. Narrative 12/17/2024 12:09 PM CDT EXAMINATION: 1 view chest radiograph Procedure Note Ed Garcia MD - 12/17/2024 EXAMINATION: 1 view chest radiograph IMPRESSION: Comparison 12/11/2024 5:23 PM. Gastric tube now in place coursing caudal to the diaphragm. Left sided ventriculoperitoneal shunt catheter again noted. Calcified pleural plaques again seen. Mild right base atelectasis unchanged. No focal consolidation seen. No pneumothorax or pleural effusion seen. Heart size and mediastinal contour remain within normal limits. Electronically signed by: Ed Garcia M.D. us Marlen Lynn MD IMG XR PROCEDURES Final R esult * (ABNORMAL) POCT glucose (12/17/2024 11:07 AM CDT) Glucose, POC 272(H) 70 - 199 mg/dL Comment:Glu2: IGGY Notified Glucose comment 1 Glu2: IGGY Notified [facility] Blood 12/17/2024 11:0 7 AM CDT 12/17/2024 11:07 AM CDT us Marlen Lynn MD LAB POCT ORDERABLES - DEV ICE Final Result [facility] [place] [address] * (ABNORMAL) POCT glucose (12/17/2024 7:54 AM CDT) Glucose, POC 271(H) 70 - 199 mg/dL Comment:Glu2: IGGY Notified Glucose comment 1 Glu2: IGGY Notified [facility] Blood 12/17/2024 7:54 AM CDT 12/17/2024 7:54 AM CDT us Marlen Lynn MD LAB POCT ORDERABLES - DEV ICE Final Result Performing Organization Address [facility] Co de Phone Number [facility] [place] [address] * (ABNORMAL) POCT glucose (12/17/2024 4:30 AM CDT) Glucose, POC 238(H) 70 - 199 mg/dL Blood 12/17/2024 4:30 AM CDT 12/17/2024 4:30 AM CDT Marlen Lynn MD LAB POCT ORDERABLES - DEV ICE Final Result Performing Organization Address [facility] de Phone Number [facility] [place] [address] * (ABNORMAL) POCT glucose (12/16/2024 11:21 PM CDT) Glucose, POC 260(H) 70 - 199 mg/dL Blood 12/16/2024 11:2 1 PM CDT 12/16/2024 11:21 PM CDT Marlen Lynn MD LAB POCT ORDERABLES - DEV ICE Final Result Performing Organization Address [facility] Co de Phone Number [facility] [place] [address] * eGFR (12/16/2024 7:46 PM CDT) eGFR >90 >=60 mL/min/1. 73 m2 Comment: Interpretive Data [...] interpretive data was last reviewed 2021. Blood 12/16/2024 7:46 PM CDT 12/16/2024 8:35 PM CDT us Marlen Lynn MD LAB BLOOD ORDERABLES Katalina perales Result [facility] Department [place] [address] * (ABNORMAL) Differential, auto (12/16/2024 7:46 PM CDT) Pathologist [facility] Neutrophil abs 5.35 1.50 - 6.50 K/cumm Imm gran abs 0.04 0.00 - 0.10 K/cumm [facility] Lymphocyte abs 1.60 0.80 - 3.30 K/cumm [facility] Monocyte abs 0.86(H) 0.20 - 0.80 K/cumm [facility] Eosinophil abs 0.39 0.00 - 0.50 K/cumm [facility] Basophil abs 0.08 0.00 - 0.10 K/cumm [facility] Neutrophil pct 64.3 % [facility] Comment: Interpretive Data Percent cell count reference ranges are not reported, since discordance with absolute values may lead to misinterpretation of CBC data. Current Interpretive Data was last revised on 2017. Imm gran pct 0.5 % [facility] Comment: Interpretive Data Percent cell count reference ranges are not reported, since discordance with absolute values may lead to misinterpretation of CBC data. Current Interpretive Data was last revised on 2017. Lymphocyte pct 19.2 % [facility] Comment: Interpretive Data Percent cell count reference ranges are not reported, since discordance with absolute values may lead to misinterpretation of CBC data. Current Interpretive Data was last revised on 2017. Monocyte pct 10.3 % [facility] Comment: Interpretive Data Percent cell count reference ranges are not reported, since discordance with absolute values may lead to misinterpretation of CBC data. Current Interpretive Data was last revised on 2017. Eosinophil pct 4.7 % [facility] Comment: Interpretive Data Percent cell count reference ranges are not reported, since discordance with absolute values may lead to misinterpretation of CBC data. Current Interpretive Data was last revised on 2017. Basophil pct 1.0 % [facility] Comment: Interpretive Data Percent cell count reference ranges are not reported, since discordance with absolute values may lead to misinterpretation of CBC data. Current Interpretive Data was last revised on 2017. Blood 12/16/2024 7:46 PM CDT 12/16/2024 8:35 PM CDT us Marlen Lynn MD LAB BLOOD ORDERABLES Katalina l Result [facility] [place] [address] * (ABNORMAL) CBC with auto differential (12/16/2024 7:46 PM CDT) WBC 8.32 3.80 - 9.90 K/cumm Hgb 12.1(L) 13.0 - 17.5 g/dL [facility] Hct 36.4(L) 38.9 - 50.3 % [facility] Plt 371 150 - 400 K/cumm [facility] MPV 9.5 9.1 - 12.3 fL [facility] RBC 4.09(L) 4.30 - 5.80 M/cumm [facility] MCV 89.0 81.3 - 96.4 fL [facility] MCH 29.6 27.1 - 33.3 pg [facility] MCHC 33.2 32.3 - 35.7 g/dL [facility] RDW CV 14.5 11.1 - 14.9 % [facility] RDW SD 46.8 35.7 - 48.1 fL [facility] NRBC abs 0.00 0.00 - 0.01 K/cumm [facility] Blood 12/16/2024 7:46 PM CDT 12/16/2024 8:35 PM CDT Marlen Lynn MD LAB BLOOD ORDERABLES Katalina l Result Performing Organization Address City/State/[facility] [place] [address] * Phosphorus (12/16/2024 7:46 PM CDT) [facility] Phosphorus, pl 2.4 2.3 - 4.5 mg/dL Blood 12/16/2024 7:46 PM CDT 12/16/2024 8:35 PM CDT Marlen Lynn MD LAB BLOOD ORDERABLES Katalina l Result Performing Organization Address City/[facility] Co de Phone Number [facility] Department [place] [address] * Magnesium (12/16/2024 7:46 PM CDT) [facility] Magnesium 1.9 1.4 - 2.5 mg/dL Blood 12/16/2024 7:46 PM CDT 12/16/2024 8:35 PM CDT Marlen Lynn MD LAB BLOOD ORDERABLES Katalina l Result Performing Organization Address City/[facility] Co de Phone Number [facility] [place] [address] * (ABNORMAL) Basic metabolic panel (12/16/2024 7:46 PM CDT) [facility] [facility] [place] Sodium 138 135 - 145 mmol/L Potassium, pl 4.7 3.3 - 4.9 mmol/L [facility] Chloride 102 97 - 110 mmol/L [facility] CO2 26 22 - 32 mmol/L [facility] Anion gap 10 2 - 15 mmol/L [facility] BUN 18 6 - 25 mg/dL [facility] Creatinine 0.77(L) 0.80 - 1.30 mg/dL [facility] Glucose 264(H) 70 - 199 mg/dL [facility] Comment: Interpretive Data Fasting glucose [...] interpretive data was last revised 2022. Calcium 9.1 8.5 - 10.3 mg/dL [facility] Blood 12/16/2024 7:46 PM CDT 12/16/2024 8:35 PM CDT Marlen Lynn MD LAB BLOOD ORDERABLES Katalina l Result [facility] Department [place] [address] * (ABNORMAL) POCT glucose (12/16/2024 7:43 PM CDT) Pathologist [facility] [place] Glucose, POC 261(H) 70 - 199 mg/dL Blood 12/16/2024 7:43 PM CDT 12/16/2024 7:43 PM CDT Marlen Lynn MD LAB POCT ORDERABLES - DEV ICE Final Result [facility] [place] [address] * (ABNORMAL) POCT glucose (12/16/2024 4:17 PM CDT) Glucose, POC 245(H) 70 - 199 mg/dL Blood 12/16/2024 4:17 PM CDT 12/16/2024 4:17 PM CDT us Marlen Lynn MD LAB POCT ORDERABLES - DEV ICE Final Result Performing Organization Address [facility] [place] [address] * (ABNORMAL) POCT glucose (12/16/2024 11:46 AM CDT) Glucose, POC 236(H) 70 - 199 mg/dL Blood 12/16/2024 11:4 6 AM CDT 12/16/2024 11:46 AM CDT us Marlen Lynn MD LAB POCT ORDERABLES - DEV ICE Final Result Performing Organization Address [facility] [place] [address] * (ABNORMAL) POCT glucose (12/16/2024 7:18 AM CDT) Glucose, POC 229(H) 70 - 199 mg/dL Blood 12/16/2024 7:18 AM CDT 12/16/2024 7:18 AM CDT Result Bart Lynn MD LAB POCT ORDERABLES - DEV ICE Final Result Performing Organization Address City/[facility]/ZIP Co de Phone Number [facility] [place] [address] * (ABNORMAL) POCT glucose (12/16/2024 3:49 AM CDT) Glucose, POC 247(H) 70 - 199 mg/dL Comment:Glu2: RN/MD Notified Glucose comment 1 Glu2: RN/MD Notified [facility] Blood 12/16/2024 3:49 AM CDT 12/16/2024 3:49 AM CDT Marlen Lynn MD LAB POCT ORDERABLES - DEV ICE Final Result Performing Organization Address City/[facility]/ZIP Co de Phone Number [facility] Department [place] [address] * (ABNORMAL) POCT glucose (12/15/2024 11:57 PM CDT) Pathologist [facility] [place] Glucose, POC 239(H) 70 - 199 mg/dL Blood 12/15/2024 11:5 7 PM CDT 12/15/2024 11:57 PM CDT Marlen Lynn MD LAB POCT ORDERABLES - DEV ICE Final Result Performing Organization Address City/[facility] Co de Phone Number [facility] Department [place] [address] * eGFR (12/15/2024 8:25 PM CDT) [facility] eGFR 90 >=60 mL/min/1. 73 m2 Comment: Interpretive Data [...] interpretive data was last reviewed 2021. Blood 12/15/2024 8:25 PM CDT 12/15/2024 8:45 PM CDT us Marlen Lynn MD LAB BLOOD ORDERABLES Katalina angella Result [facility] Department [place] [address] * (ABNORMAL) Differential, auto (12/15/2024 8:25 PM CDT) Neutrophil abs 5.42 1.50 - 6.50 K/cumm Imm gran abs 0.03 0.00 - 0.10 K/cumm [facility] Lymphocyte abs 1.99 0.80 - 3.30 K/cumm [facility] Monocyte abs 0.88(H) 0.20 - 0.80 K/cumm [facility] Eosinophil abs 0.43 0.00 - 0.50 K/cumm [facility] Basophil abs 0.06 0.00 - 0.10 K/cumm [facility] Neutrophil pct 61.5 % [facility] Comment: Interpretive Data Percent cell count reference ranges are not reported, since discordance with absolute values may lead to misinterpretation of CBC data. Current Interpretive Data was last revised on 2017. Imm gran pct 0.3 % [facility] Comment: Interpretive Data Percent cell count reference ranges are not reported, since discordance with absolute values may lead to misinterpretation of CBC data. Current Interpretive Data was last revised on 2017. Lymphocyte pct 22.6 % [facility] Comment: Interpretive Data Percent cell count reference ranges are not reported, since discordance with absolute values may lead to misinterpretation of CBC data. Current Interpretive Data was last revised on 2017. Monocyte pct 10.0 % [facility] Comment: Interpretive Data Percent cell count reference ranges are not reported, since discordance with absolute values may lead to misinterpretation of CBC data. Current Interpretive Data was last revised on 2017. Eosinophil pct 4.9 % [facility] Comment: Interpretive Data Percent cell count reference ranges are not reported, since discordance with absolute values may lead to misinterpretation of CBC data. Current Interpretive Data was last revised on 2017. Basophil pct 0.7 % [facility] Comment: Interpretive Data Percent cell count reference ranges are not reported, since discordance with absolute values may lead to misinterpretation of CBC data. Current Interpretive Data was last revised on 2017. Blood 12/15/2024 8:25 PM CDT 12/15/2024 8:45 PM CDT Marlen Lynn MD LAB BLOOD ORDERABLES Katalina perales Result [facility] Department [place] [address] * (ABNORMAL) CBC with auto differential (12/15/2024 8:25 PM CDT) WBC 8.81 3.80 - 9.90 K/cumm Hgb 11.5(L) 13.0 - 17.5 g/dL [facility] Hct 34.8(L) 38.9 - 50.3 % [facility] Plt 336 150 - 400 K/cumm [facility] MPV 9.2 9.1 - 12.3 fL [facility] RBC 3.90(L) 4.30 - 5.80 M/cumm [facility] MCV 89.2 81.3 - 96.4 fL [facility] MCH 29.5 27.1 - 33.3 pg [facility] MCHC 33.0 32.3 - 35.7 g/dL [facility] RDW CV 14.9 11.1 - 14.9 % [facility] RDW SD 48.1 35.7 - 48.1 fL [facility] NRBC abs 0.00 0.00 - 0.01 K/cumm [facility] Blood 12/15/2024 8:25 PM CDT 12/15/2024 8:45 PM CDT us Marlen Lynn MD LAB BLOOD ORDERABLES Katalina l Result Performing Organization Address City/[facility] Co de Phone Number [facility] [place] [place] [address] * Phosphorus (12/15/2024 8:25 PM CDT) Pathologist [facility] [place] Phosphorus, pl 2.3 2.3 - 4.5 mg/dL Blood 12/15/2024 8:25 PM CDT 12/15/2024 8:45 PM CDT us Marlen Lynn MD LAB BLOOD ORDERABLES Katalina l Result Performing Organization Address [facility] Co de Phone Number [facility] [place] [place] [address] * Magnesium (12/15/2024 8:25 PM CDT) [facility] Magnesium 1.9 1.4 - 2.5 mg/dL Blood 12/15/2024 8:25 PM CDT 12/15/2024 8:45 PM CDT us Marlen Lynn MD LAB BLOOD ORDERABLES Katalina l Result Performing Organization Address City/[facility] Co de Phone Number [facility] [place] [place] [address] * (ABNORMAL) Basic metabolic panel (12/15/2024 8:25 PM CDT) Pathologist [facility] [place] Sodium 139 135 - 145 mmol/L Potassium, pl 4.1 3.3 - 4.9 mmol/L [facility] Chloride 106 97 - 110 mmol/L [facility] CO2 28 22 - 32 mmol/L [facility] Anion gap 5 2 - 15 mmol/L [facility] BUN 17 6 - 25 mg/dL [facility] Creatinine 0.81 0.80 - 1.30 mg/dL [facility] Glucose 224(H) 70 - 199 mg/dL [facility] Comment: Interpretive Data Fasting glucose [...] interpretive data was last revised 2022. Calcium 9.1 8.5 - 10.3 mg/dL [facility] Blood 12/15/2024 8:25 PM CDT 12/15/2024 8:45 PM CDT Marlen Lynn MD LAB BLOOD ORDERABLES Katalina l Result [facility] Department [place] [place] [address] * POCT glucose (12/15/2024 7:50 PM CDT) Glucose, POC 198 70 - 199 mg/dL Blood 12/15/2024 7:50 PM CDT 12/15/2024 7:50 PM CDT Marlen Lynn MD LAB POCT ORDERABLES - DEV ICE Final Result Performing Organization Address City/[facility]/ZIP Co de Phone Number [facility] Department [place] [place] [address] * (ABNORMAL) POCT glucose (12/15/2024 4:42 PM CDT) Glucose, POC 237(H) 70 - 199 mg/dL Comment:Glu2: RN/MD Notified Glucose comment 1 Glu2: RN/MD Notified [facility] Blood 12/15/2024 4:42 PM CDT 12/15/2024 4:42 PM CDT Marlen Lynn MD LAB POCT ORDERABLES - DEV ICE Final Result Performing Organization Address City/[facility] Co de Phone Number [facility] Department [place] [address] * POCT glucose (12/15/2024 11:54 AM CDT) [facility] Glucose, POC 136 70 - 199 mg/dL Blood 12/15/2024 11:5 4 AM CDT 12/15/2024 11:54 AM CDT Marlen Lynn MD LAB POCT ORDERABLES - DEV ICE Final Result Performing Organization Address [facility] de Phone Number [facility] Department [place] [address] * XR Abdomen Ap 1 Vw (12/15/2024 11:09 AM CDT) Anatomical Region Laterality Modality Body, Abdomen N/A Digital Radiogra phy 12/15/2024 12:2 0 PM CDT Impressions 12/15/2024 12:20 PM CDT Gastric tube tip overlying the gastric body and side-port overlying the distal esophagus. MARINE WELDER shunt catheter tubing overlies the abdomen. The radiology attending physician has personally reviewed this study, and had reviewed and/or edited this written report and agrees with it. Electronically signed by: Thong Rankin M.D. Narrative 12/15/2024 12:20 PM CDT EXAMINATION: Abdomen, one view. HISTORY: Check tube placement. COMPARISON: 12/13/2024. Procedure Note Thong Rankin MD - 12/15/2024 EXAMINATION: Abdomen, one view. HISTORY: Check tube placement. COMPARISON: 12/13/2024. IMPRESSION: Gastric tube tip overlying the gastric body and side-port overlying the distal esophagus. MARINE WELDER shunt catheter tubing overlies the abdomen. The radiology attending physician has personally reviewed this study, and had reviewed and/or edited this written report and agrees with it. Electronically signed by: Thong Rankin M.D. us Marlen Lynn MD IMG XR PROCEDURES Final R esult * (ABNORMAL) POCT glucose (12/15/2024 7:46 AM CDT) Glucose, POC 245(H) 70 - 199 mg/dL Comment:Glu2: RN/MD Notified Glucose comment 1 Glu2: RN/MD Notified [facility] Blood 12/15/2024 7:46 AM CDT 12/15/2024 7:46 AM CDT us Marlen Lynn MD LAB POCT ORDERABLES - DEV ICE Final Result Performing Organization Address [facility] Co de Phone Number [facility] Department [place] [place] [address] * (ABNORMAL) POCT glucose (12/15/2024 4:04 AM CDT) [facility] Glucose, POC 231(H) 70 - 199 mg/dL Blood 12/15/2024 4:04 AM CDT 12/15/2024 4:04 AM CDT us Marlen Lynn MD LAB POCT ORDERABLES - DEV ICE Final Result Performing Organization Address [facility] Co de Phone Number [facility] Department [place] [address] * POCT glucose (12/15/2024 12:05 AM CDT) [facility] Glucose, POC 195 70 - 199 mg/dL Blood 12/15/2024 12:0 5 AM CDT 12/15/2024 12:05 AM CDT Marlen Lynn MD LAB POCT ORDERABLES - DEV ICE Final Result Performing Organization Address City/[facility]/ZIP Co de Phone Number [facility] Department [place] [address] * eGFR (12/14/2024 8:52 PM CDT) [facility] eGFR 87 >=60 mL/min/1. 73 m2 Comment: Interpretive Data [...] interpretive data was last reviewed 2021. Blood 12/14/2024 8:52 PM CDT 12/14/2024 9:39 PM CDT Marlen Lynn MD LAB BLOOD ORDERABLES Katalina l Result Performing Organization Address City/[facility]/ZIP Co de Phone Number [facility] [place] [address] * (ABNORMAL) Differential, auto (12/14/2024 8:52 PM CDT) Neutrophil abs 5.05 1.50 - 6.50 K/cumm Imm gran abs 0.05 0.00 - 0.10 K/cumm [facility] Lymphocyte abs 1.94 0.80 - 3.30 K/cumm [facility] Monocyte abs 0.81(H) 0.20 - 0.80 K/cumm [facility] Eosinophil abs 0.37 0.00 - 0.50 K/cumm [facility] Basophil abs 0.05 0.00 - 0.10 K/cumm [facility] Neutrophil pct 61.0 % [facility] Comment: Interpretive Data Percent cell count reference ranges are not reported, since discordance with absolute values may lead to misinterpretation of CBC data. Current Interpretive Data was last revised on 2017. Imm gran pct 0.6 % [facility] Comment: Interpretive Data Percent cell count reference ranges are not reported, since discordance with absolute values may lead to misinterpretation of CBC data. Current Interpretive Data was last revised on 2017. Lymphocyte pct 23.5 % [facility] Comment: Interpretive Data Percent cell count reference ranges are not reported, since discordance with absolute values may lead to misinterpretation of CBC data. Current Interpretive Data was last revised on 2017. Monocyte pct 9.8 % [facility] Comment: Interpretive Data Percent cell count reference ranges are not reported, since discordance with absolute values may lead to misinterpretation of CBC data. Current Interpretive Data was last revised on 2017. Eosinophil pct 4.5 % [facility] Comment: Interpretive Data Percent cell count reference ranges are not reported, since discordance with absolute values may lead to misinterpretation of CBC data. Current Interpretive Data was last revised on 2017. Basophil pct 0.6 % [facility] Comment: Interpretive Data Percent cell count reference ranges are not reported, since discordance with absolute values may lead to misinterpretation of CBC data. Current Interpretive Data was last revised on 2017. Blood 12/14/2024 8:52 PM CDT 12/14/2024 9:40 PM CDT Marlen Lynn MD LAB BLOOD ORDERABLES Katalina l Result Performing Organization Address [facility] de Phone Number [facility] Department [place] [address] * (ABNORMAL) CBC with auto differential (12/14/2024 8:52 PM CDT) [facility] WBC 8.27 3.80 - 9.90 K/cumm Hgb 11.2(L) 13.0 - 17.5 g/dL [facility] Hct 34.0(L) 38.9 - 50.3 % [facility] Plt 322 150 - 400 K/cumm [facility] MPV 9.2 9.1 - 12.3 fL [facility] RBC 3.80(L) 4.30 - 5.80 M/cumm [facility] MCV 89.5 81.3 - 96.4 fL [facility] MCH 29.5 27.1 - 33.3 pg [facility] MCHC 32.9 32.3 - 35.7 g/dL [facility] RDW CV 15.0(H) 11.1 - 14.9 % [facility] RDW SD 49.2(H) 35.7 - 48.1 fL [facility] NRBC abs 0.00 0.00 - 0.01 K/cumm [facility] Blood 12/14/2024 8:52 PM CDT 12/14/2024 9:40 PM CDT Marlen Lynn MD LAB BLOOD ORDERABLES Katalina l Result Performing Organization Address [facility] Co de Phone Number [facility] Department [place] [address] * Phosphorus (12/14/2024 8:52 PM CDT) [facility] Phosphorus, pl 2.7 2.3 - 4.5 mg/dL Blood 12/14/2024 8:52 PM CDT 12/14/2024 9:39 PM CDT Marlen Lynn MD LAB BLOOD ORDERABLES Katalina l Result Performing Organization Address City/[facility]/ZIP Co de Phone Number [facility] Department [place] [address] * Magnesium (12/14/2024 8:52 PM CDT) [facility] Magnesium 2.0 1.4 - 2.5 mg/dL Blood 12/14/2024 8:52 PM CDT 12/14/2024 9:39 PM CDT Marlen Lynn MD LAB BLOOD ORDERABLES Katalina l Result Performing Organization Address [facility] Co de Phone Number [facility] Department [place] [address] * (ABNORMAL) Basic metabolic panel (12/14/2024 8:52 PM CDT) [facility] Sodium 141 135 - 145 mmol/L Potassium, pl 4.1 3.3 - 4.9 mmol/L [facility] Chloride 107 97 - 110 mmol/L [facility] CO2 28 22 - 32 mmol/L [facility] Anion gap 6 2 - 15 mmol/L [facility] BUN 15 6 - 25 mg/dL [facility] Creatinine 0.90 0.80 - 1.30 mg/dL [facility] Glucose 253(H) 70 - 199 mg/dL [facility] Comment: Interpretive Data Fasting glucose [...] interpretive data was last revised 2022. Calcium 9.0 8.5 - 10.3 mg/dL [facility] Blood 12/14/2024 8:52 PM CDT 12/14/2024 9:39 PM CDT us Marlen Lynn MD LAB BLOOD ORDERABLES Katalina l Result Performing Organization Address [facility] de Phone Number [facility] [place] [place] [address] * POCT glucose (12/14/2024 7:55 PM CDT) Glucose, POC 198 70 - 199 mg/dL Blood 12/14/2024 7:55 PM CDT 12/14/2024 7:55 PM CDT us Marlen Lynn MD LAB POCT ORDERABLES - DEV ICE Final Result Performing Organization Address [facility] de Phone Number [facility] Department [place] [place] [address] * POCT glucose (12/14/2024 3:08 PM CDT) Glucose, POC 173 70 - 199 mg/dL Blood 12/14/2024 3:08 PM CDT 12/14/2024 3:08 PM CDT us Marlen Lynn MD LAB POCT ORDERABLES - DEV ICE Final Result Performing Organization Address [facility] de Phone Number [facility] [employer] [place] [address] * (ABNORMAL) POCT glucose (12/14/2024 11:20 AM CDT) Glucose, POC 219(H) 70 - 199 mg/dL Blood 12/14/2024 11:2 0 AM CDT 12/14/2024 11:20 AM CDT us Marlen Lynn MD LAB POCT ORDERABLES - DEV ICE Final Result Performing Organization Address [facility] Co de Phone Number [facility] [place] [address] * (ABNORMAL) POCT glucose (12/14/2024 7:49 AM CDT) Glucose, POC 220(H) 70 - 199 mg/dL Blood 12/14/2024 7:49 AM CDT 12/14/2024 7:49 AM CDT Marlen Lynn MD LAB POCT ORDERABLES - DEV ICE Final Result Performing Organization Address [facility] de Phone Number [facility] [place] [address] * (ABNORMAL) POCT glucose (12/14/2024 5:23 AM CDT) Glucose, POC 230(H) 70 - 199 mg/dL Blood 12/14/2024 5:23 AM CDT 12/14/2024 5:23 AM CDT us Marlen Lynn MD LAB POCT ORDERABLES - DEV ICE Final Result Performing Organization Address [facility] de Phone Number [facility] Department [place] [address] * POCT glucose (12/13/2024 11:36 PM CDT) Glucose, POC 183 70 - 199 mg/dL Blood 12/13/2024 11:3 6 PM CDT 12/13/2024 11:36 PM CDT us Marlen Lynn MD LAB POCT ORDERABLES - DEV ICE Final Result Performing Organization Address [facility]/ZIP Co de Phone Number [facility] [place] [address] * eGFR (12/13/2024 11:24 PM CDT) eGFR 85 >=60 mL/min/1. 73 m2 Comment: Interpretive Data [...] interpretive data was last reviewed 2021. Blood 12/13/2024 11:2 4 PM CDT 12/14/2024 12:55 AM CDT us Marlen Lynn MD LAB BLOOD ORDERABLES Katalina perales Result [facility] [place] [address] * (ABNORMAL) Differential, auto (12/13/2024 11:24 PM CDT) Pathologist [facility] [place] Neutrophil abs 5.83 1.50 - 6.50 K/cumm Imm gran abs 0.03 0.00 - 0.10 K/cumm [facility] Lymphocyte abs 1.71 0.80 - 3.30 K/cumm [facility] Monocyte abs 0.95(H) 0.20 - 0.80 K/cumm [facility] Eosinophil abs 0.32 0.00 - 0.50 K/cumm [facility] Basophil abs 0.06 0.00 - 0.10 K/cumm [facility] Neutrophil pct 65.5 % [facility] Comment: Interpretive Data Percent cell count reference ranges are not reported, since discordance with absolute values may lead to misinterpretation of CBC data. Current Interpretive Data was last revised on 2017. Imm gran pct 0.3 % [facility] Comment: Interpretive Data Percent cell count reference ranges are not reported, since discordance with absolute values may lead to misinterpretation of CBC data. Current Interpretive Data was last revised on 2017. Lymphocyte pct 19.2 % [facility] Comment: Interpretive Data Percent cell count reference ranges are not reported, since discordance with absolute values may lead to misinterpretation of CBC data. Current Interpretive Data was last revised on 2017. Monocyte pct 10.7 % [facility] Comment: Interpretive Data Percent cell count reference ranges are not reported, since discordance with absolute values may lead to misinterpretation of CBC data. Current Interpretive Data was last revised on 2017. Eosinophil pct 3.6 % [facility] Comment: Interpretive Data Percent cell count reference ranges are not reported, since discordance with absolute values may lead to misinterpretation of CBC data. Current Interpretive Data was last revised on 2017. Basophil pct 0.7 % [facility] Comment: Interpretive Data Percent cell count reference ranges are not reported, since discordance with absolute values may lead to misinterpretation of CBC data. Current Interpretive Data was last revised on 2017. Blood 12/13/2024 11:2 4 PM CDT 12/14/2024 1:13 AM CDT us Marlen Lynn MD LAB BLOOD ORDERABLES Katalina perales Result [facility] [place] [address] * (ABNORMAL) CBC with auto differential (12/13/2024 11:24 PM CDT) WBC 8.90 3.80 - 9.90 K/cumm Hgb 11.5(L) 13.0 - 17.5 g/dL [facility] Hct 34.1(L) 38.9 - 50.3 % [facility] Plt 303 150 - 400 K/cumm [facility] MPV 9.1 9.1 - 12.3 fL [facility] RBC 3.88(L) 4.30 - 5.80 M/cumm [facility] MCV 87.9 81.3 - 96.4 fL [facility] [facility] MCH 29.6 27.1 - 33.3 pg [facility] MCHC 33.7 32.3 - 35.7 g/dL [facility] RDW CV 14.7 11.1 - 14.9 % [facility] RDW SD 47.4 35.7 - 48.1 fL [facility] NRBC abs 0.00 0.00 - 0.01 K/cumm [facility] Blood 12/13/2024 11:2 4 PM CDT 12/14/2024 1:13 AM CDT Marlen Lynn MD LAB BLOOD ORDERABLES Katalina l Result Performing Organization Address City/State/[facility] Co de Phone Number [facility] Department [place] [address] * (ABNORMAL) Phosphorus (12/13/2024 11:24 PM CDT) [facility] Phosphorus, pl 2.2(L) 2.3 - 4.5 mg/dL Blood 12/13/2024 11:2 4 PM CDT 12/14/2024 12:55 AM CDT Marlen Lynn MD LAB BLOOD ORDERABLES Katalina l Result [facility] [place] [address] * Magnesium (12/13/2024 11:24 PM CDT) [facility] Magnesium 1.9 1.4 - 2.5 mg/dL Blood 12/13/2024 11:2 4 PM CDT 12/14/2024 12:55 AM CDT Marlen Lynn MD LAB BLOOD ORDERABLES Katalina l Result [facility] Department [place] [address] * (ABNORMAL) Basic metabolic panel (12/13/2024 11:24 PM CDT) [facility] Sodium 139 135 - 145 mmol/L Potassium, pl 3.3 3.3 - 4.9 mmol/L [facility] Chloride 105 97 - 110 mmol/L [facility] CO2 26 22 - 32 mmol/L [facility] Anion gap 8 2 - 15 mmol/L [facility] BUN 13 6 - 25 mg/dL [facility] Creatinine 0.92 0.80 - 1.30 mg/dL [facility] Glucose 204(H) 70 - 199 mg/dL [facility] Comment: Interpretive Data Fasting glucose [...] interpretive data was last revised 2022. Calcium 9.1 8.5 - 10.3 mg/dL [facility] Blood 12/13/2024 11:2 4 PM CDT 12/14/2024 12:55 AM CDT Marlen Lynn MD LAB BLOOD ORDERABLES Katalina l Result Performing Organization Address [facility]/[place]IP [place] [address] * (ABNORMAL) POCT glucose (12/13/2024 8:17 PM CDT) Glucose, POC 206(H) 70 - 199 mg/dL Blood 12/13/2024 8:17 PM CDT 12/13/2024 8:17 PM CDT us Marlen Lynn MD LAB POCT ORDERABLES - [place] [address] * POCT glucose (12/13/2024 5:17 PM CDT) Glucose, POC 180 70 - 199 mg/dL Blood 12/13/2024 5:17 PM CDT 12/13/2024 5:17 PM CDT us Marlen Lynn MD LAB POCT ORDERABLES - DEV ICE Final Result Performing Organization Address City/[facility]/[place] [address] * POCT glucose (12/13/2024 11:33 AM CDT) Glucose, POC 151 70 - 199 mg/dL Blood 12/13/2024 11:3 3 AM CDT 12/13/2024 11:33 AM CDT us Marlen Lynn MD LAB POCT ORDERABLES - [place] [address] * POCT glucose (12/13/2024 7:38 AM CDT) Glucose, POC 159 70 - 199 mg/dL Blood 12/13/2024 7:38 AM CDT 12/13/2024 7:38 AM CDT Marlen Lynn MD LAB POCT ORDERABLES - DEV ICE Final Result Performing Organization Address [facility] Co de Phone Number [facility] Department [place] [address] * POCT glucose (12/13/2024 4:02 AM CDT) Glucose, POC 158 70 - 199 mg/dL Blood 12/13/2024 4:02 AM CDT 12/13/2024 4:02 AM CDT Marlen Lynn MD LAB POCT ORDERABLES - DEV ICE Final Result Performing Organization Address [facility] de Phone Number [facility] Department [place] [address] * XR Abdomen 1 View AP (12/13/2024 1:10 AM CDT) Anatomical Region Laterality Modality Body, Abdomen N/A Digital Radiogra phy 12/13/2024 10:0 0 AM CDT Impressions 12/13/2024 10:03 AM CDT Gastric tube tip in the body of the stomach with side port at the level of the gastroesophageal junction. Dictated by: Azar Mims M.D. The radiology attending physician has personally reviewed this study, and had reviewed and/or edited this written report and agrees with it. Electronically signed by: Sindy Mcdowell M.D. Narrative 12/13/2024 10:03 AM CDT EXAMINATION: Abdomen, one view. HISTORY: 79-year-old male with stroke presenting NG tube placement. COMPARISON: Abdominal radiograph 12/12/2024. Procedure Note Sindy Mcdowell MD - 12/13/2024 EXAMINATION: Abdomen, one view. HISTORY: 79-year-old male with stroke presenting NG tube placement. COMPARISON: Abdominal radiograph 12/12/2024. IMPRESSION: Gastric tube tip in the body of the stomach with side port at the level of the gastroesophageal junction. Dictated by: Azar Mims M.D. The radiology attending physician has personally reviewed this study, and had reviewed and/or edited this written report and agrees with it. Electronically signed by: Sindy Mcdowell M.D. us Lowell Jewell MD PhD IMG XR PROCEDURES Final Result * POCT glucose (12/12/2024 11:48 PM CDT) Glucose, POC 124 70 - 199 mg/dL Blood 12/12/2024 11:4 8 PM CDT 12/12/2024 11:48 PM CDT us Marlen Lynn MD LAB POCT ORDERABLES - DEV ICE Final Result [facility] Department [place] [address] * eGFR (12/12/2024 8:59 PM CDT) eGFR 79 >=60 mL/min/1. 73 m2 Comment: Interpretive Data [...] interpretive data was last reviewed 2021. Blood 12/12/2024 8:59 PM CDT 12/12/2024 9:29 PM CDT Marlen Lynn MD LAB BLOOD ORDERABLES Katalina perales Result [facility] Department [place] [address] * (ABNORMAL) Differential, auto (12/12/2024 8:59 PM CDT) Neutrophil abs 7.18(H) 1.50 - 6.50 K/cumm Imm gran abs 0.06 0.00 - 0.10 K/cumm [facility] Lymphocyte abs 1.89 0.80 - 3.30 K/cumm [facility] Monocyte abs 1.11(H) 0.20 - 0.80 K/cumm [facility] Eosinophil abs 0.32 0.00 - 0.50 K/cumm [facility] Basophil abs 0.08 0.00 - 0.10 K/cumm [facility] Neutrophil pct 67.4 % [facility] Comment: Interpretive Data Percent cell count reference ranges are not reported, since discordance with absolute values may lead to misinterpretation of CBC data. Current Interpretive Data was last revised on 2017. Imm gran pct 0.6 % [facility] Comment: Interpretive Data Percent cell count reference ranges are not reported, since discordance with absolute values may lead to misinterpretation of CBC data. Current Interpretive Data was last revised on 2017. Lymphocyte pct 17.8 % [facility] Comment: Interpretive Data Percent cell count reference ranges are not reported, since discordance with absolute values may lead to misinterpretation of CBC data. Current Interpretive Data was last revised on 2017. Monocyte pct 10.4 % [facility] Comment: Interpretive Data Percent cell count reference ranges are not reported, since discordance with absolute values may lead to misinterpretation of CBC data. Current Interpretive Data was last revised on 2017. Eosinophil pct 3.0 % [facility] Comment: Interpretive Data Percent cell count reference ranges are not reported, since discordance with absolute values may lead to misinterpretation of CBC data. Current Interpretive Data was last revised on 2017. Basophil pct 0.8 % [facility] Comment: Interpretive Data Percent cell count reference ranges are not reported, since discordance with absolute values may lead to misinterpretation of CBC data. Current Interpretive Data was last revised on 2017. Blood 12/12/2024 8:59 PM CDT 12/12/2024 9:29 PM CDT us Marlen Lynn MD LAB BLOOD ORDERABLES Katalina perales Result [facility] Department [place] [address] * (ABNORMAL) CBC with auto differential (12/12/2024 8:59 PM CDT) WBC 10.64(H) 3.80 - 9.90 K/cumm Hgb 12.2(L) 13.0 - 17.5 g/dL [facility] Hct 37.7(L) 38.9 - 50.3 % [facility] Plt 288 150 - 400 K/cumm [facility] MPV 9.3 9.1 - 12.3 fL [facility] RBC 4.20(L) 4.30 - 5.80 M/cumm [facility] MCV 89.8 81.3 - 96.4 fL [facility] MCH 29.0 27.1 - 33.3 pg [facility] MCHC 32.4 32.3 - 35.7 g/dL [facility] RDW CV 14.5 11.1 - 14.9 % [facility] RDW SD 46.7 35.7 - 48.1 fL [facility] NRBC abs 0.00 0.00 - 0.01 K/cumm [facility] Blood 12/12/2024 8:59 PM CDT 12/12/2024 9:29 PM CDT us Marlen Lynn MD LAB BLOOD ORDERABLES Katalnia l Result Performing Organization Address [facility] Co de Phone Number [facility] [place] [address] * Phosphorus (12/12/2024 8:59 PM CDT) [facility] Phosphorus, pl 2.3 2.3 - 4.5 mg/dL Blood 12/12/2024 8:59 PM CDT 12/12/2024 9:29 PM CDT us Marlen Lynn MD LAB BLOOD ORDERABLES Katalina l Result Performing Organization Address [facility] de Phone Number [facility] [place] [address] * Magnesium (12/12/2024 8:59 PM CDT) [facility] Magnesium 1.9 1.4 - 2.5 mg/dL Blood 12/12/2024 8:59 PM CDT 12/12/2024 9:29 PM CDT Marlen Lynn MD LAB BLOOD ORDERABLES Katalina l Result Performing Organization Address [facility] [place] [address] * Basic metabolic panel (12/12/2024 8:59 PM CDT) [facility] Sodium 140 135 - 145 mmol/L Potassium, pl 3.9 3.3 - 4.9 mmol/L [facility] Chloride 104 97 - 110 mmol/L [facility] CO2 23 22 - 32 mmol/L [facility] Anion gap 13 2 - 15 mmol/L [facility] BUN 12 6 - 25 mg/dL [facility] Creatinine 0.98 0.80 - 1.30 mg/dL [facility] Glucose 130 70 - 199 mg/dL [facility] Comment: Interpretive Data Fasting glucose [...] 2022. Calcium 9.8 8.5 - 10.3 mg/dL [facility] Blood 12/12/2024 8:59 PM CDT 12/12/2024 9:29 PM CDT Marlen Lynn MD LAB BLOOD ORDERABLES Katalina l Result Performing Organization Address City/[facility]/ZIP Co de Phone Number [facility] [place] [place] [address] * POCT glucose (12/12/2024 8:03 PM CDT) Glucose, POC 134 70 - 199 mg/dL Blood 12/12/2024 8:03 PM CDT 12/12/2024 8:03 PM CDT Marlen Lynn MD LAB POCT ORDERABLES - DEV ICE Final Result [facility] Department [place] [place] [address] * POCT glucose (12/12/2024 4:55 PM CDT) Glucose, POC 157 70 - 199 mg/dL Blood 12/12/2024 4:55 PM CDT 12/12/2024 4:55 PM CDT Marlen Lynn MD LAB POCT ORDERABLES - DEV ICE Final Result [facility] Department [place] [address] * XR Abdomen Ap 1 Vw (12/12/2024 11:46 AM CDT) Anatomical Region Laterality Modality Body, Abdomen N/A Computed Radiogr aphy 12/12/2024 12:4 6 PM CDT Impressions 12/12/2024 2:04 PM CDT Gastric tube tip and side port terminating in the gastric body and gastric cardia respectively. Contrast is seen in the partially imaged colon. Partially imaged ventriculoperitoneal shunt catheter tubing Dictated by: Shmuel Weller MD The radiology attending physician has personally reviewed this study, and had reviewed and/or edited this written report and agrees with it. Electronically signed by: Jesus Guzman M.D. Narrative 12/12/2024 2:04 PM CDT EXAMINATION: Abdomen, one view. HISTORY: Check tube placement. COMPARISON: CT from 05/21/2024 Procedure Note Jesus Guzman MD - 12/12/2024 EXAMINATION: Abdomen, one view. HISTORY: Check tube placement. COMPARISON: CT from 05/21/2024 IMPRESSION: Gastric tube tip and side port terminating in the gastric body and gastric cardia respectively. Contrast is seen in the partially imaged colon. Partially imaged ventriculoperitoneal shunt catheter tubing Dictated by: Shmuel Weller MD The radiology attending physician has personally reviewed this study, and had reviewed and/or edited this written report and agrees with it. Electronically signed by: Jesus Guzman M.D. Marlen Lynn MD IMG XR PROCEDURES Final R esult * POCT glucose (12/12/2024 11:29 AM CDT) Glucose, POC 168 70 - 199 mg/dL Blood 12/12/2024 11:2 9 AM CDT 12/12/2024 11:29 AM CDT Result Bart Lynn MD LAB POCT ORDERABLES - DEV ICE Final Result Performing Organization Address [facility] de Phone Number [facility] [place] [employer] [place] [address] * POCT glucose (12/12/2024 7:32 AM CDT) Glucose, POC 133 70 - 199 mg/dL Blood 12/12/2024 7:32 AM CDT 12/12/2024 7:32 AM CDT us Marlen Lynn MD LAB POCT ORDERABLES - DEV ICE Final Result Performing Organization Address [facility] de Phone Number [facility] [employer] [place] [address] * POCT glucose (12/12/2024 3:44 AM CDT) Glucose, POC 150 70 - 199 mg/dL Blood 12/12/2024 3:44 AM CDT 12/12/2024 3:44 AM CDT us Marlen Lynn MD LAB POCT ORDERABLES - DEV ICE Final Result Performing Organization Address [facility] de Phone Number [facility] [employer] [place] [address] * eGFR (12/12/2024 12:43 AM CDT) eGFR 88 >=60 mL/min/1. 73 m2 Comment: Interpretive Data [...] interpretive data was last reviewed 2021. Blood 12/12/2024 12:4 3 AM CDT 12/12/2024 1:23 AM CDT us Marlen Lynn MD LAB BLOOD ORDERABLES Katalina perales Result [facility] Department [place] [address] * Differential, auto (12/12/2024 12:43 AM CDT) Neutrophil abs 4.85 1.50 - 6.50 K/cumm Imm gran abs 0.03 0.00 - 0.10 K/cumm [facility] Lymphocyte abs 1.30 0.80 - 3.30 K/cumm [facility] Monocyte abs 0.63 0.20 - 0.80 K/cumm [facility] Eosinophil abs 0.34 0.00 - 0.50 K/cumm [facility] Basophil abs 0.05 0.00 - 0.10 K/cumm [facility] Neutrophil pct 67.3 % [facility] Comment: Interpretive Data Percent cell count reference ranges are not reported, since discordance with absolute values may lead to misinterpretation of CBC data. Current Interpretive Data was last revised on 2017. Imm gran pct 0.4 % [facility] Comment: Interpretive Data Percent cell count reference ranges are not reported, since discordance with absolute values may lead to misinterpretation of CBC data. Current Interpretive Data was last revised on 2017. Lymphocyte pct 18.1 % [facility] Comment: Interpretive Data Percent cell count reference ranges are not reported, since discordance with absolute values may lead to misinterpretation of CBC data. Current Interpretive Data was last revised on 2017. Monocyte pct 8.8 % [facility] Comment: Interpretive Data Percent cell count reference ranges are not reported, since discordance with absolute values may lead to misinterpretation of CBC data. Current Interpretive Data was last revised on 2017. Eosinophil pct 4.7 % [facility] Comment: Interpretive Data Percent cell count reference ranges are not reported, since discordance with absolute values may lead to misinterpretation of CBC data. Current Interpretive Data was last revised on 2017. Basophil pct 0.7 % [facility] Comment: Interpretive Data Percent cell count reference ranges are not reported, since discordance with absolute values may lead to misinterpretation of CBC data. Current Interpretive Data was last revised on 2017. Blood 12/12/2024 12:4 3 AM CDT 12/12/2024 1:32 AM CDT us Marlen Lynn MD LAB BLOOD ORDERABLES Katalina perales Result [facility] Department [place] [address] * (ABNORMAL) CBC with auto differential (12/12/2024 12:43 AM CDT) Pathologist [facility] WBC 7.20 3.80 - 9.90 K/cumm Hgb 10.8(L) 13.0 - 17.5 g/dL [facility] Hct 32.5(L) 38.9 - 50.3 % [facility] Plt 238 150 - 400 K/cumm [facility] MPV 9.3 9.1 - 12.3 fL [facility] RBC 3.64(L) 4.30 - 5.80 M/cumm [facility] MCV 89.3 81.3 - 96.4 fL [facility] MCH 29.7 27.1 - 33.3 pg [facility] MCHC 33.2 32.3 - 35.7 g/dL [facility] RDW CV 14.3 11.1 - 14.9 % [facility] RDW SD 46.5 35.7 - 48.1 fL [facility] NRBC abs 0.00 0.00 - 0.01 K/cumm [facility] Blood 12/12/2024 12:4 3 AM CDT 12/12/2024 1:32 AM CDT Marlen Lynn MD LAB BLOOD ORDERABLES Katalina l Result Performing Organization Address City/[facility]/ZIP Co de Phone Number [facility] [place] [employer] [place] [address] * Phosphorus (12/12/2024 12:43 AM CDT) Phosphorus, pl 2.5 2.3 - 4.5 mg/dL Blood 12/12/2024 12:4 3 AM CDT 12/12/2024 1:23 AM CDT Result [facility] Marlen Lynn MD LAB BLOOD ORDERABLES Katalina l Result Performing Organization Address City/[facility] Co de Phone Number [facility] Department [place] [place] [address] * Magnesium (12/12/2024 12:43 AM CDT) Magnesium 1.7 1.4 - 2.5 mg/dL Blood 12/12/2024 12:4 3 AM CDT 12/12/2024 1:23 AM CDT Marlen Lynn MD LAB BLOOD ORDERABLES Katalina l Result Performing Organization Address City/[facility]/ZIP Co de Phone Number [facility] Department [place] [address] * (ABNORMAL) Basic metabolic panel (12/12/2024 12:43 AM CDT) Pathologist [facility] Sodium 136 135 - 145 mmol/L Potassium, pl 5.0(H) 3.3 - 4.9 mmol/L [facility] Chloride 107 97 - 110 mmol/L [facility] CO2 24 22 - 32 mmol/L [facility] Anion gap 5 2 - 15 mmol/L [facility] BUN 9 6 - 25 mg/dL [facility] Creatinine 0.87 0.80 - 1.30 mg/dL [facility] Glucose 448(H) 70 - 199 mg/dL [facility] Comment: Interpretive Data Fasting glucose [...] interpretive data was last revised 2022. Calcium 7.9(L) 8.5 - 10.3 mg/dL [facility] Blood 12/12/2024 12:4 3 AM CDT 12/12/2024 1:23 AM CDT Marlen Lynn MD LAB BLOOD ORDERABLES Katalina l Result [facility] [place] [address] * POCT glucose (12/11/2024 11:32 PM CDT) Pathologist [facility] [place] Glucose, POC 160 70 - 199 mg/dL Blood 12/11/2024 11:3 2 PM CDT 12/11/2024 11:32 PM CDT Marlen Lynn MD LAB POCT ORDERABLES - DEV ICE Final Result Performing Organization Address City/[facility] Co de Phone Number [facility] TOLBERT [facility] [place] [employer] [place] [address] * POCT glucose (12/11/2024 7:49 PM CDT) Glucose, POC 133 70 - 199 mg/dL Blood 12/11/2024 7:49 PM CDT 12/11/2024 7:49 PM CDT Marlen Lynn MD LAB POCT ORDERABLES - DEV ICE Final Result Performing Organization Address [facility] de Phone Number [facility] [place] [place] [address] * XR Chest 1 View (12/11/2024 5:53 PM CDT) Anatomical Region Laterality Modality Body, Chest N/A Computed Radiogr aphy 12/12/2024 10:2 9 AM CDT Impressions 12/12/2024 10:29 AM CDT Comparison is made to prior chest radiograph dated 12/08/2024. Patient is rotated. Lungs are clear. No pleural effusion. No pneumothorax. Stable heart size. Electronically signed by: Gertrudis Cowart M.D. Narrative 12/12/2024 10:29 AM CDT EXAMINATION: 1 view chest radiograph Procedure Note Gertrudis Cowart MD - 12/12/2024 EXAMINATION: 1 view chest radiograph IMPRESSION: Comparison is made to prior chest radiograph dated 12/08/2024. Patient is rotated. Lungs are clear. No pleural effusion. No pneumothorax. Stable heart size. Electronically signed by: Gertrudis Cowart M.D. us Marlen Lynn MD IMG XR PROCEDURES Final R esult * POCT glucose (12/11/2024 4:53 PM CDT) Glucose, POC 126 70 - 199 mg/dL Blood 12/11/2024 4:53 PM CDT 12/11/2024 4:53 PM CDT Marlen Lynn MD LAB POCT ORDERABLES - DEV ICE Final Result [facility] Department of Laboratories [place], [place] [id number] * US Vein Duplex Lower Extremity Bilateral Complete (12/11/2024 4:40 PM CDT) Anatomical Region Laterality Modality Vascular Bilateral Ultrasound 12/11/2024 4:07 PM CDT Narrative 12/12/2024 7:40 AM CDT [facility] - Department of Vascular Surgery, Vascular Laboratory [address] [place] [id number] Lower Extremity Venous Ultrasound Report Patient Name: JESUS SOTO : 1945 (79y 8m) Study Date: 12/11/2024 4:07:08 PM Gender: M Tech: [id number] Location: [id number] Ref Provider: MARLEN LYNN Quality: Adequate Order Provider: MARLEN LYNN PROCEDURES: Vascular Report: Venous Duplex imaging was performed bilaterally in the lower extremities. The common femoral, femoral, popliteal, posterior tibial, peroneal veins were evaluated for patency, spontaneity and phasicity with Doppler, compression and augmentation maneuvers. Great saphenous vein proximal at the junction was evaluated with compression maneuvers. INDICATIONS: Swelling lower extremity, bilateral. FINDINGS: Performing Conservation Or Heritage Architect: Elier GRIFFIN, RVT. Bilateral: Venous Doppler signals in the bilateral lower extremity are within normal limits for spontaneity and phasicity and respond normally to augmentation maneuvers. No evidence of deep vein thrombus by duplex, proximal to the calf. No evidence of superficial vein thrombus bilaterally. Comments: Technically difficult left leg insonation due to internal rotation, inability to properly position patient due to patient inability to follow instructions. CONCLUSIONS: 1. There is no evidence of acute deep vein thrombosis in the lower extremities bilaterally. Noninvasive venous studies cannot rule out isolated calf vein obstruction. HISTORY: 79 y.o. male with a history of prior R MCA stroke (2017; s/p MT & R ICA stent), right BG stroke, right frontoparietal SAH (residual [employer]), left frontal arachnoid cyst (s/p cysto-ventricular peritoneal shunt 07/2023), DVTs, BPH, , MDD, GERD , DM, HTN and urinary incontinence who presents with altered mental status and aphasia from OSH. CT head and Shunt series obtained, stroke ruled out. 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 - PREVIOUS STUDIES: No previous studies for comparison. DISCLAIMER: The study images and the final report will be retained in the patient chart by the Vascular Laboratory for the legally required time period. This chart constitutes the legal record of any testing performed. ATTESTATION: I have reviewed and interpreted the pertinent images and measurements of this study. I attest to the conclusions in the final report that is provided above. Electronically Signed By: Corby Yeung MD [facility] [phone] 12/12/2024 6:25:25 AM CDT Procedure Note Corby Yeung MD - 12/12/2024 [facility] - Department of Vascular Surgery,Vascular Laboratory [address] [place] [id number] Lower Extremity Venous Ultrasound Report Patient Name: JESUS SOTO : 1945 (79y 8m) Study Date: 12/11/2024 4:07:08 PM Gender: M Tech: [id number] Location: [id number] Ref Provider: MARLEN LYNN Quality: Adequate Order Provider: MARLEN LYNN PROCEDURES: Vascular Report: Venous Duplex imaging was performed bilaterally in the lower extremities.The common femoral, femoral, popliteal, posterior tibial, peroneal veins wereevaluated for patency, spontaneity and phasicity with Doppler, compression and augmentationmaneuvers. Great saphenous vein proximal at the junction was evaluated with compressionmaneuvers. INDICATIONS: Swelling lower extremity, bilateral. FINDINGS: Performing Conservation Or Heritage Architect: Elier GRIFFIN RVT. Bilateral: Venous Doppler signals in the bilateral lower extremity are within normallimits for spontaneity and phasicity and respond normally to augmentation maneuvers.No evidence of deep vein thrombus by duplex, proximal to the calf. No evidence ofsuperficial vein thrombus bilaterally. Comments: Technically difficult left leg insonation due to internal rotation,inability to properly position patient due to patient inability to follow instructions. CONCLUSIONS: 1. There is no evidence of acute deep vein thrombosis in the lowerextremities bilaterally. Noninvasive venous studies cannot rule out isolated calf veinobstruction. HISTORY: 79 y.o. male with a history of prior R MCA stroke (2017; s/p MT & R ICAstent), right BG stroke, right frontoparietal SAH (residual [employer]), left frontal arachnoidcyst (s/p cysto-ventricular peritoneal shunt 07/2023), DVTs, BPH, , MDD, GERD , DM,HTN and urinary incontinence who presents with altered mental status and aphasia from OSH.CT head and Shunt series obtained, stroke ruled out. [facility] - PREVIOUS STUDIES: No previous studies for comparison. DISCLAIMER: The study images and the final report will be retained in the patientchart by the Vascular Laboratory for the legally required time period. This chartconstitutes the legal record of any testing performed. ATTESTATION: I have reviewed and interpreted the pertinent images and measurements ofthis study. I attest to the conclusions in the final report that is provided above. Electronically Signed By: Corby Yeung MD [facility] [phone] 12/12/2024 6:25:25 AM CDT Marlen Lynn MD IM US PROCEDURES Final R esult * POCT glucose (12/11/2024 11:14 AM CDT) Glucose, POC 185 70 - 199 mg/dL Blood 12/11/2024 11:1 4 AM CDT 12/11/2024 11:14 AM CDT Marlen Lynn MD LAB POCT ORDERABLES - DEV ICE Final Result [facility] [place] [address] * POCT glucose (12/11/2024 7:31 AM CDT) Glucose, POC 151 70 - 199 mg/dL Blood 12/11/2024 7:31 AM CDT 12/11/2024 7:31 AM CDT Marlen Lynn MD LAB POCT ORDERABLES - DEV ICE Final Result Performing Organization Address [facility] de Phone Number [facility] [place] [address] * POCT glucose (12/11/2024 4:28 AM CDT) Glucose, POC 166 70 - 199 mg/dL Blood 12/11/2024 4:28 AM CDT 12/11/2024 4:28 AM CDT us Nidhi Morgan MD LAB POCT ORDERABLES - DEVICE Final Result Performing Organization Address [facility] de Phone Number [facility] [place] [address] * POCT glucose (12/10/2024 11:16 PM CDT) Glucose, POC 140 70 - 199 mg/dL Blood 12/10/2024 11:1 6 PM CDT 12/10/2024 11:16 PM CDT Nidhi Morgan MD LAB POCT ORDERABLES - DEVICE Final Result Performing Organization Address [facility] de Phone Number [facility] [place] [employer] [place] [address] * eGFR (12/10/2024 9:55 PM CDT) eGFR 77 >=60 mL/min/1. 73 m2 Comment: Interpretive Data [...] interpretive data was last reviewed 2021. Blood 12/10/2024 9:55 PM CDT 12/10/2024 10:29 PM CDT us Nidhi Morgan MD LAB BLOOD ORDERABLES Final Re sult [facility] Department [place] [address] * (ABNORMAL) Renal function panel (12/10/2024 9:55 PM CDT) Sodium 139 135 - 145 mmol/L Potassium, pl 3.1(L) 3.3 - 4.9 mmol/L [facility] Chloride 106 97 - 110 mmol/L [facility] CO2 26 22 - 32 mmol/L [facility] Anion gap 7 2 - 15 mmol/L [facility] BUN 12 6 - 25 mg/dL [facility] Creatinine 1.00 0.80 - 1.30 mg/dL [facility] Glucose 155 70 - 199 mg/dL [facility] Comment: Interpretive Data Fasting glucose [...] classification and Diagnosis of Diabetes Diabetes Care 202; 46: S19-S40. Current interpretive data was last revised 2022. Calcium 8.4(L) 8.5 - 10.3 mg/dL [facility] Phosphorus, pl 3.1 2.3 - 4.5 mg/dL [facility] Albumin 2.9(L) 3.5 - 5.0 g/dL [facility] Blood 12/10/2024 9:55 PM CDT 12/10/2024 10:29 PM CDT Nidhi Morgan MD LAB BLOOD ORDERABLES Final Re sult Performing Organization Address [facility] Co de Phone Number [facility] [place] [place] [address] * POCT glucose (12/10/2024 7:53 PM CDT) Glucose, POC 149 70 - 199 mg/dL Blood 12/10/2024 7:53 PM CDT 12/10/2024 7:53 PM CDT Result [facility] Nidhi Morgan MD LAB POCT ORDERABLES - DEVICE Final Result Performing Organization Address [facility] de Phone Number [facility] [place] [employer] [place] [address] * POCT glucose (12/10/2024 4:20 PM CDT) Glucose, POC 171 70 - 199 mg/dL Comment:Glu2: RN/MD Notified Glucose comment 1 Glu2: RN/MD Notified [facility] Blood 12/10/2024 4:20 PM CDT 12/10/2024 4:20 PM CDT Nidhi Morgan MD LAB POCT ORDERABLES - DEVICE Final Result Performing Organization Address [facility] Co de Phone Number [facility] [place] [place] [address] * POCT glucose (12/10/2024 1:31 PM CDT) Glucose, POC 160 70 - 199 mg/dL Blood 12/10/2024 1:31 PM CDT 12/10/2024 1:31 PM CDT us Nidhi Morgan MD LAB POCT ORDERABLES - DEVICE Final Result [facility] Department [place] [address] * FL Modified Barium Swallow W Video (12/10/2024 11:15 AM CDT) Anatomical Region Laterality Modality Head and Neck N/A Radio Fluoroscop y 12/10/2024 3:20 PM CDT Impressions 12/10/2024 3:37 PM CDT The swallowing mechanism is abnormal; see above comments. Please refer to the Speech Pathology procedure note for safe swallow recommendations as well as additional information regarding the oral-pharyngeal swallow function, plan of care, and recommended follow up. Dictated by: Lyle Jason M.D. The radiology attending physician has personally reviewed this study, and had reviewed and/or edited this written report and agrees with it. Electronically signed by: Joanna Davila M.D. Narrative 12/10/2024 3:37 PM CDT EXAMINATION: MODIFIED BARIUM SWALLOW HISTORY: Dysphagia. TECHNIQUE: This procedure was completed in conjunction with a Speech Language Pathologist. The patient was given barium of multiple different consistencies to swallow. Video fluoroscopy was employed during the exam. FINDINGS: Oral-pharyngeal swallow function is moderately impaired. Penetration: Yes There is penetration of thin liquids, nectar thick liquids, honey thick liquids. Aspiration: Yes There is aspiration of thin liquids, nectar thick liquids, honey thick liquids. Residue:Yes Other comments: None Procedure Note Joanna Davila MD - 12/10/2024 EXAMINATION: MODIFIED BARIUM SWALLOW HISTORY: Dysphagia. TECHNIQUE: This procedure was completed in conjunction with a Speech Language Pathologist. The patient was given barium of multiple different consistencies to swallow. Video fluoroscopy was employed during the exam. FINDINGS: Oral-pharyngeal swallow function is moderately impaired. Penetration: Yes There is penetration of thin liquids, nectar thick liquids, honey thick liquids. Aspiration: Yes There is aspiration of thin liquids, nectar thick liquids, honey thick liquids. Residue:Yes Other comments: None IMPRESSION: The swallowing mechanism is abnormal; see above comments. Please refer to the Speech Pathology procedure note for safe swallow recommendations as well as additional information regarding the oral-pharyngeal swallow function, plan of care, and recommended follow up. Dictated by: Lyle Jason M.D. The radiology attending physician has personally reviewed this study, and had reviewed and/or edited this written report and agrees with it. Electronically signed by: Joanna Davila M.D. us Nidhi Morgan MD IMG FLUOROSCOPY PROCEDURES Fi nal Result * DIRECTOR OF MATERIALS MANAGEMENT Evaluate and Treat (VFSS) (12/10/2024 11:00 AM CDT) Narrative Ritu Odell, DIRECTOR OF MATERIALS MANAGEMENT - 12/10/2024 11:00 AM CDT Ritu Odell DIRECTOR OF MATERIALS MANAGEMENT 12/10/2024 2:45 PM Speech-Language Pathology: Videofluoroscopic Study of Swallow (VFSS/MBS) HPI/PMH 79 y.o. male with a history of prior R MCA stroke (2016; s/p MT & R ICA stent), right BG stroke, right frontoparietal SAH (residual [employer]IC), left frontal arachnoid cyst (s/p cysto-ventricular peritoneal shunt 07/2023), DVTs, BPH, , MDD, GERD , DM, HTN and urinary incontinence who presents with altered mental status and aphasia from OSH. CT head and Shunt series obtained, stroke ruled out. 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 PMH: right MCA stroke in 03/2017 s/p mechanical thrombectomy and R ICA stent placement with subsequent right basal ganglia and right frontoparietal SAH (residual chronic left hemiparesis), cysto-ventricular peritoneal shunt 08/06/2023 in the setting of a growing left frontal arachnoid cyst with mass effect on the ventricles Found to have UTI Respiratory/Intubation Status: 2L Imaging: CT chest :Right greater than left basilar atelectasis. No suspicious pulmonary nodule or consolidation hCT 12/03 There is a large arachnoid cyst involving the left frontal and middle cranial fossa and left frontal approach ventriculoperitoneal shunt catheter with tip terminating in the body of the right lateral ventricle. The midline shift and the cyst itself measure slightly increased in size compared to 08/30/23; slight variations may be due to differences in technique. The size of the midline shift and cyst are likely grossly the same. Overall, the ventricular system is unchanged in size and morphology. 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 Hypoattenuation in the left thalamus and left occipital lobe is unchanged. Precautions: fall PLOF: MBS 10/2023 [facility]: aspiration with large drinks of thin liquid noted on radiologist report. DIRECTOR OF MATERIALS MANAGEMENT report and video not accessible. CSE 08/2023 regular, thin Current Diet Order: npo Baseline Diet: pt reports regular diet with thickened liquids, unable to confirm General Information Jesus Soto 12/10/24 DIRECTOR OF MATERIALS MANAGEMENT Received On: 12/10/24 General Observations: rrived to [facility] very sleepy, unable to rouse. Awakened promptly once sitting upright in fluoro suite, remained awake and alert throughout exam. Voicing strong, functional. Oriented to self, stated he was at [facility]. Followed commands for oral mech, overall functional but decreased range of motion, left labial droop. Drool noted to fall from right side when initiating oral motor movements. Reason for Referral:objective swallow evaluation Pain Score: 0 - No pain If pain >4, was RN notified? None Observed Patient Stated Goal/Comments: see above Clinical Impression & Professional Recommendations Diet Solids Recommendation: PO for pleasure only, Pureed Diet Liquids Recommendations: Ice chips only, NPO for liquids Recommended Form of Medications: Feeding tube, Non-orally Compensatory Strategies/Modifications: Small bites, Slow rate, Other (Comment) (cues to swallow fast, visualize/palpate swallow completion before providing further trials) Postural Recommendations: Upright 90 degrees Assistance with feeding/swallowing: One to one assist with meals Specialty Instructions: none Overall Clinical Impression/Additional Information: Given trials of thin, nectar and honey thick liquids as well as puree and hard solid. NO aspiration/penetration with puree or hard solid food. Prolonged but functional mastication of solid. With all liquid thicknesses, pt with aspiration- most often due significant delayed initiation, resulting in pooling in pyriforms. Contrast noted to spill over into vestibule/airway upon laryngeal elevation for swallow initiation. Cough response for most events, not consistently clearing contrast from trachea/vestibule. Intermittently appeared to benefit from cues to swallow fast however one instance pt had a fairly timely swallow initiation but still aspirated in the same manner (contrast in pyriform spilled over into vestibule). Noted to have trace vallecular and pyriform sinus residue with liquid trials, no residue following puree or solid food trials. Slightly more vallecular residue following honey thick trial. Assessment Details & Results Purpose and Procedure of Videofluoroscopic Study of Swallow: Videofluoroscopic Study of Swallow completed to assess oropharyngeal swallow function and safety/efficiency of the swallow so that diet recommendations can be made. This test is completed in conjunction with Radiology. Results of this test are indicative of performance at the time of the exam. Standard procedure is in lateral view at 90 degrees. Consistencies Administered: Thin liquids, [place] thickened liquids, Honey thickened liquids, Purees, Solids Administered consistencies contain barium product. Thin Liquids: Laryngeal Penetration: Present Aspiration Present: Yes Timing: During, Before Amount: Moderate Response to aspiration: Cough reflex Cough: Inconsistently productive Penetration Aspiration Scale-Thin: 7-Material enters the airway, passes below the vocal folds and is not ejected from the trachea despite effort [place] Thickened Liquids: Laryngeal Penetration: Present Aspiration Present: Yes Timing: Before, During Amount: Moderate Penetration Aspiration Scale-[place]: 7-Material enters the airway, passes below the vocal folds and is not ejected from the trachea despite effort Honey Thickened Liquids: Laryngeal Penetration: Present Aspiration Present: Yes Timing: During, Before Amount: Moderate Penetration Aspiration Scale-Honey: 7-Material enters the airway, passes below the vocal folds and is not ejected from the trachea despite effort Purees: Laryngeal Penetration: None Aspiration Present: No Penetration Aspiration Scale-Puree: 1-Material does not enter airway Solids: Laryngeal Penetration: None Aspiration Present: No Penetration Aspiration Scale-Solids: 1-Material does not enter airway MBSImp: MBSImp Results: Lip closure : 0-No labial escape Tongue Control with Bolus Hold: 2-Posterior escape of less than half of bolus Bolus Preparation/Mastication : 1-Slow prolonged chewing/mashing with complete re-collection Bolus Transport/Lingual Motion : 3-Repetitive/disorganized tongue motion Oral Residue: 1-Trace residue lining oral structures (normal variant) Initiation of Pharyngeal Swallow : 3-Bolus head in pyriforms Soft Palate : 0-No bolus between soft palate and pharyngeal wall Laryngeal Elevation : 0-Complete superior movement of thyroid cartilage with complete approximation of arytenoids to epiglottic petiole Anterior Hyoid Excursion: 0-Complete anterior movement Epiglottic Movement: 0-Complete inversion Laryngeal Vestibular Closure: 1-Incomplete, narrow column of air/contrast in laryngeal vestibule Pharyngeal Stripping Wave: 0-Present and complete Pharyngeal Contraction (AP view only): Not assessed, No AP view Pharyngoesophageal Segment Opening : 0-Complete distention and complete duration, no obstruction of flow Tongue Base Retraction : 1-Trace column of contrast or air between tongue base and posterior pharyngeal wall (normal variant) Pharyngeal Residue : 2-Collection of residue within or on pharyngeal structures Esophageal Clearance (upright position): Not assessed, No AP view Dysphagia Outcome and Severity Scale: Dysphagia Outcomes and Severity Scale: 2 Moderate/Severe dysphagia Levels 1 & 2 on the SEVEN indicate need for nonoral nutrition. Treatment Treatment was not provided this date. Please reference care plan for treatment goals and details, if indicated. Some treatment/intervention strategies may be challenging to complete due to pt cognitive/communication status. DIRECTOR OF MATERIALS MANAGEMENT to continue to follow and educate as much as able. Plan DIRECTOR OF MATERIALS MANAGEMENT Frequency of Services during current admission: 2-3x/wk DIRECTOR OF MATERIALS MANAGEMENT Recommendation (Add'l Services): Longterm Facility, Inpatient Rehab Facility DIRECTOR OF MATERIALS MANAGEMENT - Next Appointment: 12/11/24 Next Visit Plan: treatment/therapy Additional Referrals: none at this time Discharge Summary Statement If this is the last swallow therapy visit, this serves as the discharge summary. us Nidhi Morgan MD DIRECTOR OF MATERIALS MANAGEMENT ORDERABLES Final Result * POCT glucose (12/10/2024 7:44 AM CDT) Glucose, POC 155 70 - 199 mg/dL Comment:Glu2: RN/MD Notified Glucose comment 1 Glu2: RN/MD Notified [facility] Blood 12/10/2024 7:44 AM CDT 12/10/2024 7:44 AM CDT us Nidhi Morgan MD LAB POCT ORDERABLES - DEVICE Final Result [facility] [place] [address] * POCT glucose (12/10/2024 4:54 AM CDT) Glucose, POC 158 70 - 199 mg/dL Blood 12/10/2024 4:54 AM CDT 12/10/2024 4:54 AM CDT us Nidhi Morgan MD LAB POCT ORDERABLES - DEVICE Final Result Performing Organization Address [facility] [place] [address] * POCT glucose (12/09/2024 11:39 PM CDT) [facility] Signature Glucose, POC 161 70 - 199 mg/dL Blood 12/09/2024 11:3 9 PM CDT 12/09/2024 11:39 PM CDT us Nidhi Morgan MD LAB POCT ORDERABLES - DEVICE Final Result Performing Organization Address [facility] [place] [address] * POCT glucose (12/09/2024 11:03 PM CDT) [facility] Signature Glucose, POC 162 70 - 199 mg/dL Blood 12/09/2024 11:0 3 PM CDT 12/09/2024 11:03 PM CDT Nidhi Morgan MD LAB POCT ORDERABLES - DEVICE Final Result Performing Organization Address [facility] Co de Phone Number [facility] [place] [address] * eGFR (12/09/2024 9:55 PM CDT) [facility] eGFR 69 >=60 mL/min/1. 73 m2 Comment: Interpretive Data [...] interpretive data was last reviewed 2021. Blood 12/09/2024 9:55 PM CDT 12/09/2024 10:38 PM CDT us Nidhi Morgan MD LAB BLOOD ORDERABLES Final Re sult [facility] Department [place] [address] * (ABNORMAL) Renal function panel (12/09/2024 9:55 PM CDT) Pathologist [facility] Sodium 137 135 - 145 mmol/L Potassium, pl 3.5 3.3 - 4.9 mmol/L [facility] Chloride 103 97 - 110 mmol/L [facility] CO2 25 22 - 32 mmol/L [facility] Anion gap 9 2 - 15 mmol/L [facility] BUN 17 6 - 25 mg/dL [facility] Creatinine 1.09 0.80 - 1.30 mg/dL [facility] Glucose 155 70 - 199 mg/dL [facility] Comment: Interpretive Data Fasting glucose [...] interpretive data was last revised 2022. Calcium 9.0 8.5 - 10.3 mg/dL [facility] Phosphorus, pl 2.4 2.3 - 4.5 mg/dL [facility] Albumin 3.3(L) 3.5 - 5.0 g/dL [facility] Blood 12/09/2024 9:55 PM CDT 12/09/2024 10:38 PM CDT Nidhi Morgan MD LAB BLOOD ORDERABLES Final Re sult Performing Organization Address [facility]/ZIP Co de Phone Number [facility] Department [place] [address] * POCT glucose (12/09/2024 9:44 PM CDT) Glucose, POC 141 70 - 199 mg/dL Blood 12/09/2024 9:44 PM CDT 12/09/2024 9:44 PM CDT Nidhi Morgan MD LAB POCT ORDERABLES - DEVICE Final Result Performing Organization Address [facility] Co de Phone Number [facility] Department [place] [address] * POCT glucose (12/09/2024 4:24 PM CDT) Glucose, POC 175 70 - 199 mg/dL Blood 12/09/2024 4:24 PM CDT 12/09/2024 4:24 PM CDT Nidhi Morgan MD LAB POCT ORDERABLES - DEVICE Final Result Performing Organization Address [facility] Co de Phone Number [facility] [place] [address] * POCT glucose (12/09/2024 11:20 AM CDT) Glucose, POC 161 70 - 199 mg/dL Blood 12/09/2024 11:2 0 AM CDT 12/09/2024 11:20 AM CDT us Nidhi Morgan MD LAB POCT ORDERABLES - DEVICE Final Result Performing Organization Address [facility] [place] [address] * POCT glucose (12/09/2024 7:33 AM CDT) Glucose, POC 177 70 - 199 mg/dL Blood 12/09/2024 7:33 AM CDT 12/09/2024 7:33 AM CDT us Nidhi Morgan MD LAB POCT ORDERABLES - DEVICE Final Result Performing Organization Address [facility] Co de Phone Number [facility] [place] [address] * POCT glucose (12/09/2024 4:05 AM CDT) Glucose, POC 149 70 - 199 mg/dL Blood 12/09/2024 4:05 AM CDT 12/09/2024 4:05 AM CDT us Nidhi Morgan MD LAB POCT ORDERABLES - DEVICE Final Result Performing Organization Address City/[facility] Co de Phone Number [facility] [place] [address] * eGFR (12/09/2024 4:04 AM CDT) Pathologist [facility] eGFR 64 >=60 mL/min/1. 73 m2 Comment: Interpretive Data [...] interpretive data was last reviewed 2021. Blood 12/09/2024 4:04 AM CDT 12/09/2024 4:54 AM CDT us Elvia Yates MD LAB BLOOD ORDERABLES Final R esult [facility] [place] [address] * (ABNORMAL) CBC without differential (12/09/2024 4:04 AM CDT) [facility] WBC 6.85 3.80 - 9.90 K/cumm Hgb 10.5(L) 13.0 - 17.5 g/dL [facility] Hct 32.4(L) 38.9 - 50.3 % [facility] Plt 195 150 - 400 K/cumm [facility] MPV 9.5 9.1 - 12.3 fL [facility] RBC 3.60(L) 4.30 - 5.80 M/cumm [facility] MCV 90.0 81.3 - 96.4 fL [facility] MCH 29.2 27.1 - 33.3 pg [facility] MCHC 32.4 32.3 - 35.7 g/dL [facility] [facility] RDW CV 14.4 11.1 - 14.9 % [facility] RDW SD 47.6 35.7 - 48.1 fL [facility] NRBC abs 0.00 0.00 - 0.01 K/cumm [facility] Blood 12/09/2024 4:04 AM CDT 12/09/2024 4:54 AM CDT Elvia Yates MD LAB BLOOD ORDERABLES Final R esult [facility] Department [place] [address] * Basic metabolic panel (12/09/2024 4:04 AM CDT) Sodium 141 135 - 145 mmol/L Potassium, pl 3.5 3.3 - 4.9 mmol/L [facility] Chloride 106 97 - 110 mmol/L [facility] CO2 27 22 - 32 mmol/L [facility] Anion gap 8 2 - 15 mmol/L [facility] BUN 24 6 - 25 mg/dL [facility] Creatinine 1.17 0.80 - 1.30 mg/dL [facility] Glucose 159 70 - 199 mg/dL [facility] Comment: Interpretive Data Fasting glucose [...] interpretive data was last revised 2022. Calcium 8.5 8.5 - 10.3 mg/dL [facility] Blood 12/09/2024 4:04 AM CDT 12/09/2024 4:54 AM CDT us Elvia Yates MD LAB BLOOD ORDERABLES Final R esult Performing Organization Address [facility] Co de Phone Number [facility] [place] [address] * POCT glucose (12/09/2024 1:54 AM CDT) Glucose, POC 166 70 - 199 mg/dL Blood 12/09/2024 1:54 AM CDT 12/09/2024 1:54 AM CDT Nidhi Morgan MD LAB POCT ORDERABLES - DEVICE Final Result Performing Organization Address [facility] de Phone Number [facility] [place] [address] * POCT glucose (12/08/2024 8:41 PM CDT) Glucose, POC 157 70 - 199 mg/dL Blood 12/08/2024 8:41 PM CDT 12/08/2024 8:41 PM CDT Nihdi Morgan MD LAB POCT ORDERABLES - DEVICE Final Result Performing Organization Address [facility] de Phone Number [facility] [place] [address] * XR Chest 1 View (12/08/2024 4:30 PM CDT) Anatomical Region Laterality Modality Body, Chest N/A Computed Radiogr aphy 12/08/2024 4:58 PM CDT Impressions 12/08/2024 4:58 PM CDT Comparison 12/03/2024. Small lung volumes. Bibasilar partial atelectasis. No pneumothorax or pleural effusion. Heart and mediastinum are unchanged. Electronically signed by: Geo Shelton M.D. Narrative 12/08/2024 4:58 PM CDT EXAMINATION: 1 view chest radiograph Procedure Note Geo Shelton MD - 12/08/2024 EXAMINATION: 1 view chest radiograph IMPRESSION: Comparison 12/03/2024. Small lung volumes. Bibasilar partial atelectasis. No pneumothorax or pleural effusion. Heart and mediastinum are unchanged. Electronically signed by: Geo Shelton M.D. Nidhi Morgan MD IMG XR PROCEDURES Final Resul t * POCT glucose (12/08/2024 3:43 PM CDT) Glucose, POC 186 70 - 199 mg/dL Blood 12/08/2024 3:43 PM CDT 12/08/2024 3:43 PM CDT Nidhi Morgan MD LAB POCT ORDERABLES - DEVICE Final Result Performing Organization Address [facility] Co de Phone Number [facility] Department [place] [place] [address] * POCT glucose (12/08/2024 11:29 AM CDT) Glucose, POC 186 70 - 199 mg/dL Blood 12/08/2024 11:2 9 AM CDT 12/08/2024 11:29 AM CDT Nidhi Morgan MD LAB POCT ORDERABLES - DEVICE Final Result Performing Organization Address City/[facility] de Phone Number [facility] Department [place] [place] [address] * POCT glucose (12/08/2024 7:24 AM CDT) Glucose, POC 178 70 - 199 mg/dL Blood 12/08/2024 7:24 AM CDT 12/08/2024 7:24 AM CDT us Nidhi Morgan MD LAB POCT ORDERABLES - DEVICE Final Result Performing Organization Address [facility] Co de Phone Number [facility] Department [place] [address] * (ABNORMAL) eGFR (12/08/2024 6:03 AM CDT) Pathologist [facility] [place] eGFR 41(L) >=60 mL/min/1. 73 m2 Comment: Interpretive Data [...] interpretive data was last reviewed 2021. Blood 12/08/2024 6:03 AM CDT 12/08/2024 7:57 AM CDT us Elvia Yates MD LAB BLOOD ORDERABLES Final R esult Performing Organization Address City/[facility]/ZIP Co de Phone Number [facility] Department [place] [address] * (ABNORMAL) CBC without differential (12/08/2024 6:03 AM CDT) Pathologist [facility] [place] WBC 6.87 3.80 - 9.90 K/cumm Hgb 10.5(L) 13.0 - 17.5 g/dL [facility] Hct 32.4(L) 38.9 - 50.3 % [facility] Plt 202 150 - 400 K/cumm [facility] MPV 9.5 9.1 - 12.3 fL [facility] RBC 3.56(L) 4.30 - 5.80 M/cumm [facility] MCV 91.0 81.3 - 96.4 fL [facility] MCH 29.5 27.1 - 33.3 pg [facility] MCHC 32.4 32.3 - 35.7 g/dL [facility] RDW CV 14.7 11.1 - 14.9 % [facility] RDW SD 49.9(H) 35.7 - 48.1 fL [facility] NRBC abs 0.00 0.00 - 0.01 K/cumm [facility] Blood 12/08/2024 6:03 AM CDT 12/08/2024 7:57 AM CDT Elvia Yates MD LAB BLOOD ORDERABLES Final R esult [facility] Department [place] [address] * (ABNORMAL) Basic metabolic panel (12/08/2024 6:03 AM CDT) Sodium 146(H) 135 - 145 mmol/L Potassium, pl 3.6 3.3 - 4.9 mmol/L [facility] Chloride 111(H) 97 - 110 mmol/L [facility] CO2 27 22 - 32 mmol/L [facility] Anion gap 8 2 - 15 mmol/L [facility] BUN 32(H) 6 - 25 mg/dL [facility] Creatinine 1.70(H) 0.80 - 1.30 mg/dL [facility] Glucose 173 70 - 199 mg/dL [facility] Comment: Interpretive Data Fasting glucose [...] interpretive data was last revised 2022. Calcium 8.6 8.5 - 10.3 mg/dL [facility] Blood 12/08/2024 6:03 AM CDT 12/08/2024 7:57 AM CDT Elvia Yates MD LAB BLOOD ORDERABLES Final R esult Performing Organization Address City/[facility] Co de Phone Number [facility] [employer] [place] [address] * POCT glucose (12/08/2024 4:16 AM CDT) Glucose, POC 175 70 - 199 mg/dL Blood 12/08/2024 4:16 AM CDT 12/08/2024 4:16 AM CDT Nidhi Morgan MD LAB POCT ORDERABLES - DEVICE Final Result Performing Organization Address [facility] de Phone Number [facility] Department [place] [place] [address] * POCT glucose (12/08/2024 12:21 AM CDT) Glucose, POC 160 70 - 199 mg/dL Blood 12/08/2024 12:2 1 AM CDT 12/08/2024 12:21 AM CDT Nidhi Morgan MD LAB POCT ORDERABLES - DEVICE Final Result Performing Organization Address City/[facility] Co de Phone Number [facility] [place] [place] [address] * POCT glucose (12/07/2024 8:15 PM CDT) Glucose, POC 195 70 - 199 mg/dL Blood 12/07/2024 8:15 PM CDT 12/07/2024 8:15 PM CDT us Nidhi Morgan MD LAB POCT ORDERABLES - DEVICE Final Result Performing Organization Address [facility] Phone Number [facility] [employer] [place] [address] * POCT glucose (12/07/2024 4:33 PM CDT) Glucose, POC 178 70 - 199 mg/dL Blood 12/07/2024 4:33 PM CDT 12/07/2024 4:33 PM CDT us Nidhi Morgan MD LAB POCT ORDERABLES - DEVICE Final Result Performing Organization Address [facility] Phone Number [facility] [employer] [place] [address] * POCT glucose (12/07/2024 2:40 PM CDT) Glucose, POC 154 70 - 199 mg/dL Blood 12/07/2024 2:40 PM CDT 12/07/2024 2:40 PM CDT us Nidhi Morgan MD LAB POCT ORDERABLES - DEVICE Final Result Performing Organization Address [facility] Phone Number [facility] [employer] [place] [address] * POCT glucose (12/07/2024 11:25 AM CDT) Glucose, POC 176 70 - 199 mg/dL Blood 12/07/2024 11:2 5 AM CDT 12/07/2024 11:25 AM CDT us Nidhi Morgan MD LAB POCT ORDERABLES - DEVICE Final Result [facility] [place] [address] * POCT glucose (12/07/2024 7:27 AM CDT) Glucose, POC 168 70 - 199 mg/dL Blood 12/07/2024 7:27 AM CDT 12/07/2024 7:27 AM CDT Nidhi Morgan MD LAB POCT ORDERABLES - DEVICE Final Result Performing Organization Address [facility] de Phone [facility] [place] [address] * (ABNORMAL) eGFR (12/07/2024 6:44 AM CDT) eGFR 28(L) >=60 mL/min/1. 73 m2 Comment: Interpretive Data [...] interpretive data was last reviewed 2021. Blood 12/07/2024 6:44 AM CDT 12/07/2024 7:47 AM CDT us Elvia Yates MD LAB BLOOD ORDERABLES Final R esult Performing Organization Address [facility] Co de Phone Number [facility] Department [place] [address] * (ABNORMAL) CBC without differential (12/07/2024 6:44 AM CDT) [facility] WBC 7.61 3.80 - 9.90 K/cumm Hgb 10.7(L) 13.0 - 17.5 g/dL [facility] Hct 33.8(L) 38.9 - 50.3 % [facility] Plt 203 150 - 400 K/cumm [facility] MPV 9.6 9.1 - 12.3 fL [facility] RBC 3.62(L) 4.30 - 5.80 M/cumm [facility] MCV 93.4 81.3 - 96.4 fL [facility] MCH 29.6 27.1 - 33.3 pg [facility] MCHC 31.7(L) 32.3 - 35.7 g/dL [facility] RDW CV 15.2(H) 11.1 - 14.9 % [facility] RDW SD 51.7(H) 35.7 - 48.1 fL [facility] NRBC abs 0.00 0.00 - 0.01 K/cumm [facility] Blood 12/07/2024 6:44 AM CDT 12/07/2024 7:27 AM CDT Elvia Yates MD LAB BLOOD ORDERABLES Final R esult Performing Organization Address City/[facility]/ZIP Co de Phone Number [facility] Department [place] [address] * (ABNORMAL) Basic metabolic panel (12/07/2024 6:44 AM CDT) Pathologist [facility] [place] Sodium 145 135 - 145 mmol/L Potassium, pl 3.7 3.3 - 4.9 mmol/L [facility] Chloride 110 97 - 110 mmol/L [facility] CO2 27 22 - 32 mmol/L [facility] Anion gap 8 2 - 15 mmol/L [facility] BUN 35(H) 6 - 25 mg/dL [facility] Creatinine 2.33(H) 0.80 - 1.30 mg/dL [facility] Glucose 160 70 - 199 mg/dL [facility] Comment: Interpretive Data Fasting glucose [...] interpretive data was last revised 2022. Calcium 8.7 8.5 - 10.3 mg/dL [facility] Blood 12/07/2024 6:44 AM CDT 12/07/2024 7:27 AM CDT us Elvia Yates MD LAB BLOOD ORDERABLES Final R esult [facility] Department [place] [place] [address] * POCT glucose (12/07/2024 5:29 AM CDT) Glucose, POC 160 70 - 199 mg/dL Blood 12/07/2024 5:29 AM CDT 12/07/2024 5:29 AM CDT us Nidhi Morgan MD LAB POCT ORDERABLES - DEVICE Final Result [facility] Department [place] [place] [address] * POCT glucose (12/07/2024 3:06 AM CDT) Glucose, POC 149 70 - 199 mg/dL Blood 12/07/2024 3:06 AM CDT 12/07/2024 3:06 AM CDT Nidhi Morgan MD LAB POCT ORDERABLES - DEVICE Final Result Performing Organization Address [facility] [place] [address] * POCT glucose (12/06/2024 8:07 PM CDT) Glucose, POC 185 70 - 199 mg/dL Blood 12/06/2024 8:07 PM CDT 12/06/2024 8:07 PM CDT Nidhi Morgan MD LAB POCT ORDERABLES - DEVICE Final Result Performing Organization Address [facility] [place] [address] * (ABNORMAL) Urinalysis reflex to microscopic and culture Urine, indwelling catheter (12/06/2024 6:07PM CDT) Color, ur Yellow Yellow Clarity, ur Cloudy(A) Clear [facility] Specific gravity, ur 1.030 1.003 - 1.030 [facility] pH, urine 6.0 [facility] Comment: Interpretive Data U rine pH is affected by diet, medications, systemic acid-base disturbances, and renal tubular function. pH may affect urinary stone formation. For example, urine pH below 6.0 may help reduce the tendency for calcium phosphate stones and pH greater than 6.0 may reduce the tendency for uric acid stone formation. Source: [facility] [employer] Current Interpretive Data was last revised on 2017 Protein, ur ql 2+(A) Negative [facility] Glucose, ur ql Negative Negative [facility] Ketones, ur 1+(A) Negative [facility] Bilirubin, ur Negative Negative [facility] Blood, ur 3+(A) Negative [facility] Urobilinogen, ur <2.0 <2.0 mg/dL [facility] Nitrite, ur Negative Negative [facility] Leukocyte esterase, ur 3+(A) Negative [facility] UA reflex comment Reflex to microscopic UA will be performed. [facility] Urine, indwelling catheter 12/06/2024 6:07 PM CDT 12/06/2024 6:25 PM CDT Nidhi Morgan MD LAB MICROBIOLOGY - GENERAL OR DERABLES Final Result Performing Organization Address [facility] Co de Phone Number [facility] [place] [employer] [place] [address] * Urea nitrogen, urine, random (12/06/2024 6:07 PM CDT) Urea nitrogen, ur 565 mg/dL Comment: Interpretive Data No reference range established. Current interpretive data was last revised 2018. Urine 12/06/2024 6:07 PM CDT 12/06/2024 6:28 PM CDT Nidhi Morgan MD LAB URINE ORDERABLES Final Re sult Performing Organization Address [facility] Co de Phone Number [facility] [place] [place] [address] * Sodium, urine, random (12/06/2024 6:07 PM CDT) Sodium, ur 117 mmol/L Comment: Interpretive Data No reference range established. Current interpretive data was last revised 2018. Urine 12/06/2024 6:07 PM CDT 12/06/2024 6:28 PM CDT Nidhi Morgan MD LAB URINE ORDERABLES Final Re sult Performing Organization Address [facility] Co de Phone Number [facility] Department [place] [address] * Creatinine, urine, random (12/06/2024 6:07 PM CDT) Creatinine Ur 203.8 mg/dL Comment: Interpretive Data No reference range established. Current interpretive data was last revised 2018. Urine 12/06/2024 6:07 PM CDT 12/06/2024 6:28 PM CDT Nidhi Morgan MD LAB URINE ORDERABLES Final Re sult Performing Organization Address [facility] de Phone Number [facility] [place] [address] * (ABNORMAL) Urinalysis, microscopic only (12/06/2024 6:07 PM CDT) WBC, ur >50(A) 0 - 5 /HPF RBC, ur >50(A) 0 - 2 /HPF [facility] Bacteria, ur 1+(A) [facility] Yeast, ur 1+(A) [facility] Culture Reflex Comment Reflex to urine culture will be performed. [facility] Urine, indwelling catheter 12/06/2024 6:07 PM CDT 12/06/2024 6:25 PM CDT Nidhi Morgan MD LAB URINE ORDERABLES Final Re sult Performing Organization Address [facility] de Phone Number [facility] [place] [address] * Urine culture Urine, indwelling catheter (12/06/2024 6:07 PM CDT) Report Final Report: Less than 100,000 colonies/mL (clinically insignificant growth based on current clinical standards) Organism (CLINICALLY INSIGNIFICANT GROWTH [facility] Urine, indwelling catheter 12/06/2024 6:07 PM CDT 12/06/2024 11:33 PM CDT Narrative [facility] - 12/08/2024 6:17 AM CDT Urine culture reflexed based upon urinalysis results. Testing performed by [facility] ([phone]) Nidhi Morgan MD LAB MICROBIOLOGY - GENERAL OR DERABLES Final Result Performing Organization Address [facility] de Phone Number [facility] Department [place] [address] * POCT glucose (12/06/2024 4:14 PM CDT) Glucose, POC 179 70 - 199 mg/dL Blood 12/06/2024 4:14 PM CDT 12/06/2024 4:14 PM CDT Nidhi Morgan MD LAB POCT ORDERABLES - DEVICE Final Result Performing Organization Address [facility] de Phone Number [facility] Department [place] [address] * POCT glucose (12/06/2024 11:05 AM CDT) Glucose, POC 196 70 - 199 mg/dL Blood 12/06/2024 11:0 5 AM CDT 12/06/2024 11:05 AM CDT Nidhi Morgan MD LAB POCT ORDERABLES - DEVICE Final Result Performing Organization Address [facility] de Phone Number [facility] [place] [address] * US Retroperitoneal Complete (12/06/2024 9:00 AM CDT) Anatomical Region Laterality Modality Abdomen N/A Ultrasound 12/06/2024 9:08 AM CDT Impressions 12/06/2024 9:30 AM CDT 1. Normal kidneys. No hydronephrosis. 2. Urinary bladder is decompressed by Schuster catheter but appears thickened. Dictated by: Sylvia Luz M.D. The radiology attending physician has personally reviewed this study, and had reviewed and/or edited this written report and agrees with it. Electronically signed by: Brody Tarango M.D. Narrative 12/06/2024 9:30 AM CDT EXAMINATION: COMPLETE RENAL SONOGRAM HISTORY: Worsening renal function tests despite hydration. Concerning for acute kidney injury. COMPARISON: Multiple CTs with most recent dated 05/21/2024. FINDINGS: Kidneys: Examination is partially limited due to poor acoustic windows. The echogenicity of both kidneys is normal. The kidneys are difficult to measure accurately. The right kidney measures approximately 11.2 cm in length, and the left, approximately 10.3 cm in length. There is no hydronephrosis in either kidney. There are no renal calculi visualized. Bladder: The urinary bladder is thickened. Largely decompressed by a Schuster catheter. Procedure Note Brody Tarango MD - 12/06/2024 EXAMINATION: COMPLETE RENAL SONOGRAM HISTORY: Worsening renal function tests despite hydration. Concerning for acute kidney injury. COMPARISON: Multiple CTs with most recent dated 05/21/2024. FINDINGS: Kidneys: Examination is partially limited due to poor acoustic windows. The echogenicity of both kidneys is normal. The kidneys are difficult to measure accurately. The right kidney measures approximately 11.2 cm in length, and the left, approximately 10.3 cm in length. There is no hydronephrosis in either kidney. There are no renal calculi visualized. Bladder: The urinary bladder is thickened. Largely decompressed by a Schuster catheter. IMPRESSION: 1. Normal kidneys. No hydronephrosis. 2. Urinary bladder is decompressed by Schuster catheter but appears thickened. Dictated by: Sylvia Luz M.D. The radiology attending physician has personally reviewed this study, and had reviewed and/or edited this written report and agrees with it. Electronically signed by: Brody Tarango M.D. us Nidhi Morgan MD IMG US PROCEDURES Final Resul t * POCT glucose (12/06/2024 7:30 AM CDT) Glucose, POC 178 70 - 199 mg/dL Blood 12/06/2024 7:30 AM CDT 12/06/2024 7:30 AM CDT Nidhi Morgan MD LAB POCT ORDERABLES - DEVICE Final Result Performing Organization Address [facility] de Phone Number [facility] [place] [place] [address] * POCT glucose (12/06/2024 4:25 AM CDT) Glucose, POC 152 70 - 199 mg/dL Blood 12/06/2024 4:25 AM CDT 12/06/2024 4:25 AM CDT Nidhi Morgan MD LAB POCT ORDERABLES - DEVICE Final Result Performing Organization Address [facility] de Phone Number [facility] [place] [place] [address] * (ABNORMAL) eGFR (12/06/2024 4:24 AM CDT) [facility] eGFR 21(L) >=60 mL/min/1. 73 m2 Comment: Interpretive Data [...] interpretive data was last reviewed 2021. Blood 12/06/2024 4:24 AM CDT 12/06/2024 5:09 AM CDT Elvia Yates MD LAB BLOOD ORDERABLES Final R esult Performing Organization Address City/[facility] Co de Phone Number [facility] Department [place] [address] * (ABNORMAL) CBC without differential (12/06/2024 4:24 AM CDT) Pathologist [facility] [place] WBC 7.53 3.80 - 9.90 K/cumm Hgb 10.8(L) 13.0 - 17.5 g/dL [facility] Hct 32.5(L) 38.9 - 50.3 % [facility] Plt 171 150 - 400 K/cumm [facility] MPV 9.5 9.1 - 12.3 fL [facility] RBC 3.59(L) 4.30 - 5.80 M/cumm [facility] MCV 90.5 81.3 - 96.4 fL [facility] MCH 30.1 27.1 - 33.3 pg [facility] MCHC 33.2 32.3 - 35.7 g/dL [facility] RDW CV 15.1(H) 11.1 - 14.9 % [facility] RDW SD 50.4(H) 35.7 - 48.1 fL [facility] NRBC abs 0.00 0.00 - 0.01 K/cumm [facility] Blood 12/06/2024 4:24 AM CDT 12/06/2024 5:09 AM CDT Elvia Yates MD LAB BLOOD ORDERABLES Final R esult Performing Organization Address City/[facility]/ZIP Co de Phone Number [facility] [place] [address] * (ABNORMAL) Basic metabolic panel (12/06/2024 4:24 AM CDT) Sodium 146(H) 135 - 145 mmol/L Potassium, pl 3.5 3.3 - 4.9 mmol/L [facility] Chloride 107 97 - 110 mmol/L [facility] CO2 26 22 - 32 mmol/L [facility] Anion gap 13 2 - 15 mmol/L [facility] BUN 37(H) 6 - 25 mg/dL [facility] Creatinine 2.94(H) 0.80 - 1.30 mg/dL [facility] Glucose 156 70 - 199 mg/dL [facility] Comment: Interpretive Data Fasting glucose [...] classification and Diagnosis of Diabetes Diabetes Care 202; 46: [id number]. Current interpretive data was last revised 2022. Calcium 8.6 8.5 - 10.3 mg/dL [facility] Blood 12/06/2024 4:24 AM CDT 12/06/2024 5:09 AM CDT us Elvia Yates MD LAB BLOOD ORDERABLES Final R esult Performing Organization Address City/[facility]/ZIP Co de Phone Number [place] [facility] [place] [address] * POCT glucose (12/06/2024 12:44 AM CDT) Glucose, POC 179 70 - 199 mg/dL Blood 12/06/2024 12:4 4 AM CDT 12/06/2024 12:44 AM CDT us Nidhi Morgan MD LAB POCT ORDERABLES - DEVICE Final Result Performing Organization Address [facility] Co de Phone Number [facility] [place] [address] * POCT glucose (12/05/2024 8:45 PM CDT) Glucose, POC 147 70 - 199 mg/dL Blood 12/05/2024 8:45 PM CDT 12/05/2024 8:45 PM CDT Nidhi Morgan MD LAB POCT ORDERABLES - DEVICE Final Result Performing Organization Address [facility]/ZIP Co de Phone Number [facility] [place] [address] * POCT glucose (12/05/2024 4:38 PM CDT) Glucose, POC 116 70 - 199 mg/dL Blood 12/05/2024 4:38 PM CDT 12/05/2024 4:38 PM CDT Nidhi Morgan MD LAB POCT ORDERABLES - DEVICE Final Result Performing Organization Address [facility] [place] [address] * (ABNORMAL) eGFR (12/05/2024 3:52 PM CDT) eGFR 22(L) >=60 mL/min/1. 73 m2 Comment: Interpretive Data [...] interpretive data was last reviewed 2021. Blood 12/05/2024 3:52 PM CDT 12/05/2024 4:33 PM CDT Nidhi Morgan MD LAB BLOOD ORDERABLES Final Re sult [facility] Department [place] [address] * (ABNORMAL) Renal function panel (12/05/2024 3:52 PM CDT) Sodium 146(H) 135 - 145 mmol/L Potassium, pl 4.2 3.3 - 4.9 mmol/L [facility] Chloride 107 97 - 110 mmol/L [facility] CO2 22 22 - 32 mmol/L [facility] Anion gap 17(H) 2 - 15 mmol/L [facility] BUN 34(H) 6 - 25 mg/dL [facility] Creatinine 2.79(H) 0.80 - 1.30 mg/dL [facility] Glucose 117 70 - 199 mg/dL [facility] Comment: Interpretive Data Fasting glucose [...] interpretive data was last revised 2022. Calcium 9.2 8.5 - 10.3 mg/dL [facility] Phosphorus, pl 4.3 2.3 - 4.5 mg/dL [facility] Albumin 3.5 3.5 - 5.0 g/dL [facility] Blood 12/05/2024 3:52 PM CDT 12/05/2024 4:33 PM CDT us Nidhi Morgan MD LAB BLOOD ORDERABLES Final Re sult [facility] Department [place] [address] * TRANSTHORACIC ECHO (TTE) COMPLETE W DOPPLER/CF W CONTRAST (12/05/2024 3:22 PM CDT) EF Mod BP 71 % CONS SCIMAGE Anatomical Region Laterality Modality Ultrasound 12/05/2024 2:28 PM CDT Narrative 12/05/2024 3:32 PM CDT [facility] [place] [address] Transthoracic Echocardiographic Report Patient Name: JESUS SOTO L : 1945 (79y 8m) Gender: M Study Date: 12/05/2024 02:28:02 PM Ht(Inch): 70 Wt(Lb): 175.05 BSA: 1.98 [employer] Architect: Aranza Liu RDCS, RCCS Location: [id number] Order Provider: NIDHI MORGAN Heart Rate: 108 BMI: 25.11 BP: 148 / 80 Ref Provider: NIDHI MORGAN PROCEDURES: Echocardiographic Report: Transthoracic complete echo with strain imaging and contrast, 2D, spectral and tissue Doppler, color flow Doppler, M-mode. Contrast: Contrast Enhancement was Employed: After initial imaging due to sub- optimal quality related to co-morbidity defined by patient's body habitus and due to suboptimal image quality with inadequate visualization of at least 2 of 16 LV wall segments in any view after initial imaging. Perflutren contrast was administered using the volume necessary to obtain adequate images. 0.4 ml Optison Administered, (2.6 ml wasted). Technically difficult study due to: Patient unable to cooperate. Limited visualization of some cardiac structures precludes the ability to obtain complete measurements - INDICATIONS: Stroke, follow up. CONCLUSIONS: 1. Normal left ventricular size based on volume index. Concentric LV remodeling. Normal left ventricular systolic function. The Ejection Fraction (Pineda's) is measured at 71 %. Grade I diastolic dysfunction (normal LA pressure). The average global longitudinal strain is abnormal. 2. Resting Segmental Wall Motion Analysis: Total wall motion score is 1.00. There are no regional wall motion abnormalities. 3. Normal right ventricular size. Normal right ventricular systolic function. ATTESTATION: I have personally reviewed and interpreted this study without fellow or resident. - DISCLAIMER: The study images and the final report will be retained in the patient chart by the Echo Laboratory for the legally required time period. This chart constitutes the legal record of any testing performed. FINDINGS: Left Ventricle: Normal left ventricular size based on volume index. Concentric LV remodeling. Normal left ventricular systolic function. The Ejection Fraction (Pineda's) is measured at 71 %. Grade I diastolic dysfunction (normal LA pressure). The average global longitudinal strain is abnormal. The LV global strain is: -11.3 %. Resting Segmental Wall Motion Analysis: Total wall motion score is 1.00. There are no regional wall motion abnormalities. Right Ventricle: Normal right ventricular size. Normal right ventricular systolic function. Left Atrium: The left atrium is normal in size. Right Atrium: The right atrium is normal in size. Mitral Valve: Normal mitral valve structure. No mitral regurgitation. No stenosis present. Aortic Valve: Normal trileaflet aortic valve. No aortic regurgitation. No aortic valve stenosis. Aortic valve dimensionless index is 0.54. Tricuspid Valve: Normal tricuspid valve structure. No tricuspid regurgitation. No tricuspid valve stenosis. Pulmonic Valve: Normal pulmonic valve structure. No pulmonic regurgitation. No pulmonic valve stenosis present. Pericardium: Normal pericardium without pericardial effusion. Aorta: Normal aortic root size at sinuses of Valsalva. Normal aortic root size when indexed. The ascending aorta is normal in size when indexed. IVC: The IVC was <2.1 cm and collapsibility >50%. (est. RA pressure 0-5 mmHg). PASP: Normal estimated pulmonary artery systolic pressure. Rhythm: The rhythm during the study was sinus tachycardia. MEASUREMENTS: 2D/MM Value Range Doppler Value Range LVIDd 2D 3.91 cm [ 4.20 - 5.80 ] AV Peak Yemi 1.5 m/s [ 1.0 - 1.7 ] LVIDs 2D 2.09 cm [ 2.50 - 4.00 ] AV Peak PG 9.00 mmHg IVSd 2D 1.00 cm [ 0.60 - 1.00 ] AV Mean PG 6 mmHg LVPWd 2D 1.07 cm [ 0.60 - 1.00 ] AV VTI 31.9 cm LV Thickness Ratio 0.9 LVOT Peak Yemi 0.9 m/s [ 0.7 - 1.1 ] LV FS 2D 46.54 % [ 25.00 - 43.00 ] LVOT Peak PG 3.24 mmHg LV Mass 2D 130.70 g LVOT Mean PG 2 mmHg LV Mass Index 2D 66.01 g/m2 LVOT VTI 17.3 cm RWT 0.55 LVOT Diam 2.27 cm EDV Mod BP 75.05 ml [ 62.00 - 150.00 ] NICOLE VTI 2.19 cm2 LV EDV Index 37.90 ml/m2 LVOT/AV VTI 0.54 - Dimensionless index (DVI) ESV Mod BP 21.82 ml [ 21.00 - 61.00 ] MV E Peak Yemi 1.0 m/s [ 0.6 - 1.3 ] EF Mod BP 71 % [ 52 - 72 ] MV A Peak Yemi 1.4 m/s [ 1.0 - 1.2 ] LV GLS -11.3 % [ -25.0 - -18.0 ] MV E/A 0.8 ratio [ 0.8 - 1.5 ] LA Length 4C 4.65 cm MV Decel Time 214.49 msec [ 104.00 - 258.00 ] LA Length 2C 4.94 cm Med E` Yemi 10.0 cm/sec [ 8.0 - 25.0 ] LA Volume BP 39.70 ml Lat E` Yemi 7.6 cm/sec [ 10.0 - 25.0 ] LA Volume Index 20.05 ml/m2 [ 16.00 - 34.00 ] Average E/E` 11.36 RV Base Dimen 2D 2.8 cm [ 2.5 - 4.2 ] RV S` 17.87 cm/sec TAPSE 1.88 cm [ 1.71 - 5.00 ] PV Peak Yemi 1.1 m/s [ 0.4 - 0.8 ] RA Volume 17.01 ml PV Peak PG 4.84 mmHg RA Volume Index 8.59 ml/m2 IVC Diam 1.89 cm IVC Collapse 63 % AoR Diam 2D 3.30 cm [ 3.10 - 3.70 ] Ao Root Index 1.67 cm/m2 [ 1.00 - 2.00 ] Asc Ao Diam 2D 3.10 cm Asc Ao Index 1.57 cm/m2 Electronically Signed By: Naresh Ruiz MD 12/05/2024 3:31:21 PM CDT Wall Motion Analysis - Resting Procedure Note Naresh Ruiz MD - 12/05/2024 [facility] [place] [address] Transthoracic Echocardiographic Report Patient Name: JESUS SOTO L : 1945 (79y 8m) Gender: M Study Date: 12/05/2024 02:28:02 PM Ht(Inch): 70 Wt(Lb): 175.05 BSA: 1.98 [employer] Architect: Aranza Liu RDCS, RCCS Location: [id number] OrderProvider: NIDHI MORGAN Heart Rate: 108 BMI: 25.11 BP: 148 / 80 Ref Provider: NIDHI MORGAN PROCEDURES: Echocardiographic Report: Transthoracic complete echo with strain imagingand contrast, 2D, spectral and tissue Doppler, color flow Doppler, M-mode. Contrast: Contrast Enhancement was Employed: After initial imaging due tosub- optimal quality related to co-morbidity defined by patient's body habitus and dueto suboptimal image quality with inadequate visualization of at least 2 of 16 LV wallsegments in any view after initial imaging. Perflutren contrast was administered using thevolume necessary to obtain adequate images. 0.4 ml Optison Administered, (2.6 mlwasted). Technically difficult study due to: Patient unable to cooperate. Limitedvisualization of some cardiac structures precludes the ability to obtain completemeasurements - INDICATIONS: Stroke, follow up. CONCLUSIONS: 1. Normal left ventricular size based on volume index. Concentric LVremodeling. Normal left ventricular systolic function. The Ejection Fraction (Pineda's) ismeasured at 71 %. Grade I diastolic dysfunction (normal LA pressure). The average globallongitudinal strain is abnormal. 2. Resting Segmental Wall Motion Analysis: Total wall motion score is1.00. There are no regional wall motion abnormalities. 3. Normal right ventricular size. Normal right ventricular systolicfunction. ATTESTATION: I have personally reviewed and interpreted this study without fellow orresident. - DISCLAIMER: The study images and the final report will be retained in the patientchart by the Echo Laboratory for the legally required time period. This chart constitutesthe legal record of any testing performed. FINDINGS: Left Ventricle: Normal left ventricular size based on volume index.Concentric LV remodeling. Normal left ventricular systolic function. The EjectionFraction (Pineda's) is measured at 71 %. Grade I diastolic dysfunction (normal LA pressure).The average global longitudinal strain is abnormal. The LV global strain is: -11.3%. Resting Segmental Wall Motion Analysis: Total wall motion score is 1.00.There are no regional wall motion abnormalities. Right Ventricle: Normal right ventricular size. Normal right ventricularsystolic function. Left Atrium: The left atrium is normal in size. Right Atrium: The right atrium is normal in size. Mitral Valve: Normal mitral valve structure. No mitral regurgitation. Nostenosis present. Aortic Valve: Normal trileaflet aortic valve. No aortic regurgitation. Noaortic valve stenosis. Aortic valve dimensionless index is 0.54. Tricuspid Valve: Normal tricuspid valve structure. No tricuspidregurgitation. No tricuspid valve stenosis. Pulmonic Valve: Normal pulmonic valve structure. No pulmonicregurgitation. No pulmonic valve stenosis present. Pericardium: Normal pericardium without pericardial effusion. Aorta: Normal aortic root size at sinuses of Valsalva. Normal aortic rootsize when indexed. The ascending aorta is normal in size when indexed. IVC: The IVC was <2.1 cm and collapsibility >50%. (est. RA pressure 0-5mmHg). PASP: Normal estimated pulmonary artery systolic pressure. Rhythm: The rhythm during the study was sinus tachycardia. MEASUREMENTS: 2D/MM Value Range DopplerValue Range LVIDd 2D 3.91 cm [ 4.20 - 5.80 ] AV Peak Vel1.5 m/s [ 1.0 - 1.7 ] LVIDs 2D 2.09 cm [ 2.50 - 4.00 ] AV Peak PG9.00 mmHg IVSd 2D 1.00 cm [ 0.60 - 1.00 ] AV Mean PG6 mmHg LVPWd 2D 1.07 cm [ 0.60 - 1.00 ] AV VTI31.9 cm LV Thickness Ratio 0.9 LVOT Peak Vel0.9 m/s [ 0.7 - 1.1 ] LV FS 2D 46.54 % [ 25.00 - 43.00 ] LVOT Peak PG3.24 mmHg LV Mass 2D 130.70 g LVOT Mean PG2 mmHg LV Mass Index 2D 66.01 g/m2 LVOT VTI17.3 cm RWT 0.55 LVOT Diam2.27 cm EDV Mod BP 75.05 ml [ 62.00 - 150.00 ] NICOLE VTI2.19 cm2 LV EDV Index 37.90 ml/m2 LVOT/AV VTI0.54 - Dimensionless index (DVI) ESV Mod BP 21.82 ml [ 21.00 - 61.00 ] MV E Peak Vel1.0 m/s [ 0.6 - 1.3 ] EF Mod BP 71 % [ 52 - 72 ] MV A Peak Vel1.4 m/s [ 1.0 - 1.2 ] LV GLS -11.3 % [ -25.0 - -18.0 ] MV E/A0.8 ratio [ 0.8 - 1.5 ] LA Length 4C 4.65 cm MV Decel Nhkv246.49 msec [ 104.00 - 258.00 ] LA Length 2C 4.94 cm Med E` Vel10.0 cm/sec [ 8.0 - 25.0 ] LA Volume BP 39.70 ml Lat E` Vel7.6 cm/sec [ 10.0 - 25.0 ] LA Volume Index 20.05 ml/m2 [ 16.00 - 34.00 ] Average E/E`11.36 RV Base Dimen 2D 2.8 cm [ 2.5 - 4.2 ] RV S`17.87 cm/sec TAPSE 1.88 cm [ 1.71 - 5.00 ] PV Peak Vel1.1 m/s [ 0.4 - 0.8 ] RA Volume 17.01 ml PV Peak PG4.84 mmHg RA Volume Index8.59 ml/m2 IVC Diam1.89 cm IVC Collapse 63 % AoR Diam 2D 3.30 cm [ 3.10 - 3.70 ] Ao Root Index 1.67 cm/m2 [ 1.00 - 2.00 ] Asc Ao Diam 2D3.10 cm Asc Ao Index1.57 cm/m2 Electronically Signed By: Naresh Ruiz MD 12/05/2024 3:31:21 PM CDT Wall Motion Analysis - Resting Nidhi Morgan MD CV ECHO PROCEDURES Final Resu lt * POCT glucose (12/05/2024 11:22 AM CDT) Glucose, POC 168 70 - 199 mg/dL Blood 12/05/2024 11:2 2 AM CDT 12/05/2024 11:22 AM CDT us Nidhi Morgan MD LAB POCT ORDERABLES - DEVICE Final Result Performing Organization Address [facility] [place] [address] * POCT glucose (12/05/2024 7:59 AM CDT) Glucose, POC 138 70 - 199 mg/dL Blood 12/05/2024 7:59 AM CDT 12/05/2024 7:59 AM CDT us Nidhi Morgan MD LAB POCT ORDERABLES - DEVICE Final Result Performing Organization Address [facility] Co de Phone Number [facility] [employer] [place] [address] * POCT glucose (12/05/2024 5:13 AM CDT) Glucose, POC 137 70 - 199 mg/dL Blood 12/05/2024 5:13 AM CDT 12/05/2024 5:13 AM CDT Ross Daugherty MD LAB POCT ORDERABLES - DEVICE Final Result Performing Organization Address [facility] Co de Phone Number [facility] [employer] [place] [address] * MRI Brain Tumor W WO Contrast (12/05/2024 4:57 AM CDT) Anatomical Region Laterality Modality Head and Neck N/A Magnetic Resonan ce 12/05/2024 9:07 AM CDT Impressions 12/05/2024 11:38 AM CDT 1. Acute occlusion of the left P2 segment with acute infarct within the left thalamus with small amount of central blood product. No DWI FLAIR mismatch. Chronic occlusion of the right P2 segment likely relating to intracranial atherosclerotic disease. 2. Stable size of a large left arachnoid cyst exerting mass effect and stable 1.4 cm of zsud-tq-tosqp midline shift. 3. Chronic infarcts within the right lentiform nucleus and right ramos radiata. The Critical results were discussed with Dr. Morgan by Dr. Veto Enriquez MD on 12/05/2024 6:59 AM. Dictated by: Veto Enriquez MD The radiology attending physician has personally reviewed this study, and had reviewed and/or edited this written report and agrees with it. Electronically signed by: Cholo Love M.D. Narrative 12/05/2024 11:38 AM CDT EXAMINATION: Magnetic resonance imaging (MRI) of the brain and brainstem without and with contrast HISTORY: Altered mental status and encephalopathy. TECHNIQUE: Multiplanar multi-weighted MRI of the brain and brainstem was performed without and with intravenous contrast using the brain tumor protocol. This included high-resolution 3D T1-weighted images without and with intravenous contrast and dynamic susceptibility contrast data for perfusion analysis. Contrast information: 15 mL Gadoterate Meglumine IV COMPARISON: CTA 12/03/2024, 08/30/2023. Comparison also made to MRI 09/05/2023 MRI 07/09/2023. FINDINGS: There is diffusion restriction within the left thalamus with associated T2/FLAIR hyperintensity and central susceptibility artifact. On postcontrast imaging, there is an occlusion of the left P2 segment seen on series 31 image 112. There is a chronic right P2 occlusion. Chronic infarcts within the right lentiform nucleus and right raoms radiata. There is a large left arachnoid cyst extending from the middle cranial fossa and overlying the left frontal and left parietal convexities. There remains mass effect upon the subjacent cerebral hemisphere as well as stable 1.4 cm of pxqi-tu-[id number] midline shift. A left frontal approach ventricular catheter terminates in the right lateral ventricle. Scattered small foci of T2 prolongation in the periventricular and subcortical white matter are nonspecific, but likely represent chronic small vessel ischemic change. The superior sagittal sinus demonstrates normal venous flow. The corpus callosum is normal in shape and signal intensity. The posterior fossa is unremarkable. The pituitary and sella are normal. The brainstem and craniocervical junction are unremarkable. The paranasal sinuses are normal. The visualized portions of the mastoids are unremarkable. The orbits appear normal. Normal flow voids are demonstrated in the carotid arteries and basilar artery. Procedure Note Cholo Love MD - 12/05/2024 EXAMINATION: Magnetic resonance imaging (MRI) of the brain and brainstem without and with contrast HISTORY: Altered mental status and encephalopathy. TECHNIQUE: Multiplanar multi-weighted MRI of the brain and brainstem was performed without and with intravenous contrast using the brain tumor protocol. This included high-resolution 3D T1-weighted images without and with intravenous contrast and dynamic susceptibility contrast data for perfusion analysis. Contrast information: 15 mL Gadoterate Meglumine IV COMPARISON: CTA 12/03/2024, 08/30/2023. Comparison also made to MRI 09/05/2023 MRI 07/09/2023. FINDINGS: There is diffusion restriction within the left thalamus with associated T2/FLAIR hyperintensity and central susceptibility artifact. On postcontrast imaging, there is an occlusion of the left P2 segment seen on series 31 image 112. There is a chronic right P2 occlusion. Chronic infarcts within the right lentiform nucleus and right ramos radiata. There is a large left arachnoid cyst extending from the middle cranial fossa and overlying the left frontal and left parietal convexities. There remains mass effect upon the subjacent cerebral hemisphere as well as stable 1.4 cm of yqhv-kj-tjkjp midline shift. A left frontal approach ventricular catheter terminates in the right lateral ventricle. Scattered small foci of T2 prolongation in the periventricular and subcortical white matter are nonspecific, but likely represent chronic small vessel ischemic change. The superior sagittal sinus demonstrates normal venous flow. The corpus callosum is normal in shape and signal intensity. The posterior fossa is unremarkable. The pituitary and sella are normal. The brainstem and craniocervical junction are unremarkable. The paranasal sinuses are normal. The visualized portions of the mastoids are unremarkable. The orbits appear normal. Normal flow voids are demonstrated in the carotid arteries and basilar artery. IMPRESSION: 1. Acute occlusion of the left P2 segment with acute infarct within the left thalamus with small amount of central blood product. No DWI FLAIR mismatch. Chronic occlusion of the right P2 segment likely relating to intracranial atherosclerotic disease. 2. Stable size of a large left arachnoid cyst exerting mass effect and stable 1.4 cm of gkgr-ck-cqiyp midline shift. 3. Chronic infarcts within the right lentiform nucleus and right ramos radiata. The Critical results were discussed with Dr. Morgan by Dr. Veto Enriquez MD on 12/05/2024 6:59 AM. Dictated by: Veto Enriquez MD The radiology attending physician has personally reviewed this study, and had reviewed and/or edited this written report and agrees with it. Electronically signed by: Cholo Love M.D. us Kali Connolly MD IMG MRI PROCEDURES Final R esult * (ABNORMAL) eGFR (12/05/2024 2:10 AM CDT) eGFR 27(L) >=60 mL/min/1. 73 m2 Comment: Interpretive Data [...] interpretive data was last reviewed 2021. Blood 12/05/2024 2:10 AM CDT 12/05/2024 2:38 AM CDT us Elvia Yates MD LAB BLOOD ORDERABLES Final R esult [facility] Department [place] [address] * (ABNORMAL) CBC without differential (12/05/2024 2:10 AM CDT) WBC 10.69(H) 3.80 - 9.90 K/cumm Hgb 11.7(L) 13.0 - 17.5 g/dL [facility] Hct 34.8(L) 38.9 - 50.3 % [facility] Plt 196 150 - 400 K/cumm [facility] MPV 9.3 9.1 - 12.3 fL [facility] RBC 3.89(L) 4.30 - 5.80 M/cumm [facility] MCV 89.5 81.3 - 96.4 fL [facility] MCH 30.1 27.1 - 33.3 pg [facility] MCHC 33.6 32.3 - 35.7 g/dL [facility] RDW CV 15.5(H) 11.1 - 14.9 % [facility] RDW SD 50.8(H) 35.7 - 48.1 fL [facility] NRBC abs 0.00 0.00 - 0.01 K/cumm [facility] Blood 12/05/2024 2:10 AM CDT 12/05/2024 2:38 AM CDT Elvia Yates MD LAB BLOOD ORDERABLES Final R esult [facility] Department [place] [address] * (ABNORMAL) Basic metabolic panel (12/05/2024 2:10 AM CDT) Sodium 145 135 - 145 mmol/L Potassium, pl 4.1 3.3 - 4.9 mmol/L [facility] Chloride 106 97 - 110 mmol/L [facility] CO2 26 22 - 32 mmol/L [facility] Anion gap 13 2 - 15 mmol/L [facility] BUN 27(H) 6 - 25 mg/dL [facility] Creatinine 2.42(H) 0.80 - 1.30 mg/dL [facility] Glucose 150 70 - 199 mg/dL [facility] Comment: Interpretive Data Fasting glucose [...] interpretive data was last revised 2022. Calcium 8.7 8.5 - 10.3 mg/dL [facility] Blood 12/05/2024 2:10 AM CDT 12/05/2024 2:38 AM CDT us Elvia Yates MD LAB BLOOD ORDERABLES Final R esult Performing Organization Address [facility] Co de Phone Number [facility] Department [place] [place] [address] * POCT glucose (12/04/2024 11:41 PM CDT) Glucose, POC 164 70 - 199 mg/dL Blood 12/04/2024 11:4 1 PM CDT 12/04/2024 11:41 PM CDT Ross Daugherty MD LAB POCT ORDERABLES - DEVICE Final Result Performing Organization Address [facility] Co de Phone Number [facility] [place] [place] [address] * POCT glucose (12/04/2024 9:22 PM CDT) Glucose, POC 150 70 - 199 mg/dL Blood 12/04/2024 9:22 PM CDT 12/04/2024 9:22 PM CDT Ross Daugherty MD LAB POCT ORDERABLES - DEVICE Final Result Performing Organization Address [facility] Co de Phone Number [facility] [place] [place] [address] * POCT glucose (12/04/2024 6:38 PM CDT) Glucose, POC 142 70 - 199 mg/dL Blood 12/04/2024 6:38 PM CDT 12/04/2024 6:38 PM CDT Ross Daugherty MD LAB POCT ORDERABLES - DEVICE Final Result Performing Organization Address City/[facility]/ZIP Co de Phone Number [facility] Department [place] [address] * (ABNORMAL) Lactate (12/04/2024 4:20 PM CDT) Lactate 2.5(H) 0.7 - 2.0 mmol/L Blood 12/04/2024 4:20 PM CDT 12/04/2024 4:37 PM CDT us Kali Connolly MD LAB BLOOD ORDERABLES Final Result Performing Organization Address City/[facility] Co de Phone Number [facility] [place] [address] * DIRECTOR OF MATERIALS MANAGEMENT Evaluate and Treat (FEES) (12/04/2024 3:07 PM CDT) Narrative [facility] - 12/04/2024 3:07 PM CDT Rosy Tierney SLP 12/04/2024 3:20 PM Speech-Language Pathology: Videofluoroscopic Study of Swallow (VFSS/MBS) HPI/PMH HPI/PMH: 79 y.o. male with a history of prior R MCA stroke (2017; s/p MT & R ICA stent), right BG stroke, right frontoparietal SAH (residual [employer]), left frontal arachnoid cyst (s/p cysto-ventricular peritoneal shunt 07/2023), DVTs, BPH, , MDD, GERD , DM, HTN and urinary incontinence who presents with altered mental status and aphasia from OSH. CT head and Shunt series obtained, stroke ruled out. 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 PMH: right MCA stroke in 03/2017 s/p mechanical thrombectomy and R ICA stent placement with subsequent right basal ganglia and right frontoparietal SAH (residual chronic left hemiparesis), cysto-ventricular peritoneal shunt 08/06/2023 in the setting of a growing left frontal arachnoid cyst with mass effect on the ventricles Found to have UTI Respiratory/Intubation Status: 2L Imaging: CT chest :Right greater than left basilar atelectasis. No suspicious pulmonary nodule or consolidation hCT 12/03 There is a large arachnoid cyst involving the left frontal and middle cranial fossa and left frontal approach ventriculoperitoneal shunt catheter with tip terminating in the body of the right lateral ventricle. The midline shift and the cyst itself measure slightly increased in size compared to 08/30/23; slight variations may be due to differences in technique. The size of the midline shift and cyst are likely grossly the same. Overall, the ventricular system is unchanged in size and morphology. 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 Hypoattenuation in the left thalamus and left occipital lobe is unchanged. Precautions: fall PLOF: MBS 10/2023 [facility]: aspiration with large drinks of thin liquid noted on radiologist report. DIRECTOR OF MATERIALS MANAGEMENT report and video not accessible. CSE 08/2023 regular, thin Current Diet Order: NPO Baseline Diet: pt unable to report General Information Jesus Soto 12/04/24 DIRECTOR OF MATERIALS MANAGEMENT Received On: 12/04/24 General Observations: alert, mitten on right hand (left UE contracted) Reason for Referral: r/o dysphagia/aspiration Pain Score: 0 - No pain (appears uncomfortable but denies pain when asked) If pain >4, was RN notified? No Patient Stated Goal/Comments: did not state 2/2 confusion Clinical Impression & Professional Recommendations Diet Solids Recommendation: NPO Diet Liquids Recommendations: NPO for liquids, Ice chips only Recommended Form of Medications: Non-orally Specialty Instructions: good oral care 2-3x/day including teeth brushing (gums and tongue) while upright at 90 to improve the oral biome and reduce the risk of aspiration related complications (i.e., PNA). Use suction as needed, assist as needed. Overall Clinical Impression/Additional Information: Severe oral-pharyngeal swallow dysfunction with motor and sensory deficits characterized by the following: Oral Phase Deficits: Prolonged oral holding of pudding requiring several minutes of cues and instructions to initiate AP transfer Pharyngeal Phase Deficits: swallow triggered w/bolus filling pyriforms. Incomplete BOT retraction. Delayed vs incomplete laryngeal vestibule closure. Deficits result in: Axel, gross aspiration during the swallow w/thin liquids. Laryngeal penetration of nectar-thick and honey-thick liquid during the swallow which progresses to aspiration. Post-swallow pyriform residue across consistencies. Residue of prior trials contributes to aspiration. Extremely delayed reflexive cough to aspiration x1. Did not clear aspirated contrast from trachea. Occasional reflexive cough response moved penetrated contrast higher in laryngeal vestibule, but most laryngeally penetrated contrasted flowed into trachea with no reflexive response. Assessment Details & Results Purpose and Procedure of Videofluoroscopic Study of Swallow: Videofluoroscopic Study of Swallow completed to assess oropharyngeal swallow function and safety/efficiency of the swallow so that diet recommendations can be made. This test is completed in conjunction with Radiology. Results of this test are indicative of performance at the time of the exam. Standard procedure is in lateral view at 90 degrees. Consistencies Administered: Thin liquids, [place] thickened liquids, Honey thickened liquids, Purees Administered consistencies contain barium product. Thin Liquids: Laryngeal Penetration: Present Aspiration Present: Yes Timing: During Amount: Gross Penetration Aspiration Scale-Thin: 8-Material enters the airway, passes below the vocal folds and no effort is made to eject [place] Thickened Liquids: Laryngeal Penetration: Present Aspiration Present: Yes Timing: After, During Penetration Aspiration Scale-[place]: 8-Material enters the airway, passes below the vocal folds and no effort is made to eject Honey Thickened Liquids: Laryngeal Penetration: Present Aspiration Present: Yes Timing: After, During Penetration Aspiration Scale-Honey: 8-Material enters the airway, passes below the vocal folds and no effort is made to eject Purees: Laryngeal Penetration: (cannot r/o penetration or aspiration) Aspiration Present: (cannot r/o penetration or aspiration) MBSImp: MBSImp Results: Lip closure : 0-No labial escape Tongue Control with Bolus Hold: 2-Posterior escape of less than half of bolus Bolus Preparation/Mastication : Chewables deferred due to overall oral inefficiency Bolus Transport/Lingual Motion : 1-Delayed initiation of tongue motion Oral Residue: 1-Trace residue lining oral structures (normal variant) Initiation of Pharyngeal Swallow : 3-Bolus head in pyriforms Soft Palate : 0-No bolus between soft palate and pharyngeal wall Laryngeal Elevation : 0-Complete superior movement of thyroid cartilage with complete approximation of arytenoids to epiglottic petiole Anterior Hyoid Excursion: 0-Complete anterior movement Epiglottic Movement: 0-Complete inversion Laryngeal Vestibular Closure: 1-Incomplete, narrow column of air/contrast in laryngeal vestibule Pharyngeal Stripping Wave: 0-Present and complete Pharyngeal Contraction (AP view only): Not assessed, No AP view Pharyngoesophageal Segment Opening : 1-Partial distension/partial duration, partial obstruction of flow Tongue Base Retraction : 3-Wide column of contrast or air between tongue base and posterior pharyngeal wall Pharyngeal Residue : 2-Collection of residue within or on pharyngeal structures Esophageal Clearance (upright position): Not assessed, No AP view Dysphagia Outcome and Severity Scale: Dysphagia Outcomes and Severity Scale: 1 Severe dysphagia Levels 1 & 2 on the SEVEN indicate need for nonoral nutrition. Plan DIRECTOR OF MATERIALS MANAGEMENT Frequency of Services during current admission: 2-3x/wk DIRECTOR OF MATERIALS MANAGEMENT Recommendation (Add'l Services): Longterm Facility DIRECTOR OF MATERIALS MANAGEMENT - Next Appointment: 12/06/24 Next Visit Plan: treatment/therapy Discharge Summary Statement If this is the last swallow therapy visit, this serves as the discharge summary. us Kali Connolly MD DIRECTOR OF MATERIALS MANAGEMENT ORDERABLES Final Resu lt [facility] * DIRECTOR OF MATERIALS MANAGEMENT Evaluate and Treat (VFSS) (12/04/2024 3:07 PM CDT) Narrative Rosy Tierney, DIRECTOR OF MATERIALS MANAGEMENT - 12/04/2024 3:07 PM CDT Rosy Tierney SLP 12/04/2024 3:20 PM Speech-Language Pathology: Videofluoroscopic Study of Swallow (VFSS/MBS) HPI/PMH HPI/PMH: 79 y.o. male with a history of prior R MCA stroke (2016; s/p MT & R ICA stent), right BG stroke, right frontoparietal SAH (residual [employer]), left frontal arachnoid cyst (s/p cysto-ventricular peritoneal shunt 07/2023), DVTs, BPH, , MDD, GERD , DM, HTN and urinary incontinence who presents with altered mental status and aphasia from OSH. CT head and Shunt series obtained, stroke ruled out. 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 PMH: right MCA stroke in 03/2017 s/p mechanical thrombectomy and R ICA stent placement with subsequent right basal ganglia and right frontoparietal SAH (residual chronic left hemiparesis), cysto-ventricular peritoneal shunt 08/06/2023 in the setting of a growing left frontal arachnoid cyst with mass effect on the ventricles Found to have UTI Respiratory/Intubation Status: 2L Imaging: CT chest :Right greater than left basilar atelectasis. No suspicious pulmonary nodule or consolidation hCT 12/03 There is a large arachnoid cyst involving the left frontal and middle cranial fossa and left frontal approach ventriculoperitoneal shunt catheter with tip terminating in the body of the right lateral ventricle. The midline shift and the cyst itself measure slightly increased in size compared to 08/30/23; slight variations may be due to differences in technique. The size of the midline shift and cyst are likely grossly the same. Overall, the ventricular system is unchanged in size and morphology. 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 Hypoattenuation in the left thalamus and left occipital lobe is unchanged. Precautions: fall PLOF: MBS 10/2023 [facility]: aspiration with large drinks of thin liquid noted on radiologist report. DIRECTOR OF MATERIALS MANAGEMENT report and video not accessible. CSE 08/2023 regular, thin Current Diet Order: NPO Baseline Diet: pt unable to report General Information Jesus Soto 12/04/24 DIRECTOR OF MATERIALS MANAGEMENT Received On: 12/04/24 General Observations: alert, mitten on right hand (left UE contracted) Reason for Referral: r/o dysphagia/aspiration Pain Score: 0 - No pain (appears uncomfortable but denies pain when asked) If pain >4, was RN notified? No Patient Stated Goal/Comments: did not state 2/2 confusion Clinical Impression & Professional Recommendations Diet Solids Recommendation: NPO Diet Liquids Recommendations: NPO for liquids, Ice chips only Recommended Form of Medications: Non-orally Specialty Instructions: good oral care 2-3x/day including teeth brushing (gums and tongue) while upright at 90 to improve the oral biome and reduce the risk of aspiration related complications (i.e., PNA). Use suction as needed, assist as needed. Overall Clinical Impression/Additional Information: Severe oral-pharyngeal swallow dysfunction with motor and sensory deficits characterized by the following: Oral Phase Deficits: Prolonged oral holding of pudding requiring several minutes of cues and instructions to initiate AP transfer Pharyngeal Phase Deficits: swallow triggered w/bolus filling pyriforms. Incomplete BOT retraction. Delayed vs incomplete laryngeal vestibule closure. Deficits result in: Axel, gross aspiration during the swallow w/thin liquids. Laryngeal penetration of nectar-thick and honey-thick liquid during the swallow which progresses to aspiration. Post-swallow pyriform residue across consistencies. Residue of prior trials contributes to aspiration. Extremely delayed reflexive cough to aspiration x1. Did not clear aspirated contrast from trachea. Occasional reflexive cough response moved penetrated contrast higher in laryngeal vestibule, but most laryngeally penetrated contrasted flowed into trachea with no reflexive response. Assessment Details & Results Purpose and Procedure of Videofluoroscopic Study of Swallow: Videofluoroscopic Study of Swallow completed to assess oropharyngeal swallow function and safety/efficiency of the swallow so that diet recommendations can be made. This test is completed in conjunction with Radiology. Results of this test are indicative of performance at the time of the exam. Standard procedure is in lateral view at 90 degrees. Consistencies Administered: Thin liquids, [place] thickened liquids, Honey thickened liquids, Purees Administered consistencies contain barium product. Thin Liquids: Laryngeal Penetration: Present Aspiration Present: Yes Timing: During Amount: Gross Penetration Aspiration Scale-Thin: 8-Material enters the airway, passes below the vocal folds and no effort is made to eject [place] Thickened Liquids: Laryngeal Penetration: Present Aspiration Present: Yes Timing: After, During Penetration Aspiration Scale-[place]: 8-Material enters the airway, passes below the vocal folds and no effort is made to eject Honey Thickened Liquids: Laryngeal Penetration: Present Aspiration Present: Yes Timing: After, During Penetration Aspiration Scale-Honey: 8-Material enters the airway, passes below the vocal folds and no effort is made to eject Purees: Laryngeal Penetration: (cannot r/o penetration or aspiration) Aspiration Present: (cannot r/o penetration or aspiration) MBSImp: MBSImp Results: Lip closure : 0-No labial escape Tongue Control with Bolus Hold: 2-Posterior escape of less than half of bolus Bolus Preparation/Mastication : Chewables deferred due to overall oral inefficiency Bolus Transport/Lingual Motion : 1-Delayed initiation of tongue motion Oral Residue: 1-Trace residue lining oral structures (normal variant) Initiation of Pharyngeal Swallow : 3-Bolus head in pyriforms Soft Palate : 0-No bolus between soft palate and pharyngeal wall Laryngeal Elevation : 0-Complete superior movement of thyroid cartilage with complete approximation of arytenoids to epiglottic petiole Anterior Hyoid Excursion: 0-Complete anterior movement Epiglottic Movement: 0-Complete inversion Laryngeal Vestibular Closure: 1-Incomplete, narrow column of air/contrast in laryngeal vestibule Pharyngeal Stripping Wave: 0-Present and complete Pharyngeal Contraction (AP view only): Not assessed, No AP view Pharyngoesophageal Segment Opening : 1-Partial distension/partial duration, partial obstruction of flow Tongue Base Retraction : 3-Wide column of contrast or air between tongue base and posterior pharyngeal wall Pharyngeal Residue : 2-Collection of residue within or on pharyngeal structures Esophageal Clearance (upright position): Not assessed, No AP view Dysphagia Outcome and Severity Scale: Dysphagia Outcomes and Severity Scale: 1 Severe dysphagia Levels 1 & 2 on the SEVEN indicate need for nonoral nutrition. Plan DIRECTOR OF MATERIALS MANAGEMENT Frequency of Services during current admission: 2-3x/wk DIRECTOR OF MATERIALS MANAGEMENT Recommendation (Add'l Services): Longterm Facility DIRECTOR OF MATERIALS MANAGEMENT - Next Appointment: 12/06/24 Next Visit Plan: treatment/therapy Discharge Summary Statement If this is the last swallow therapy visit, this serves as the discharge summary. Kali Connolly MD DIRECTOR OF MATERIALS MANAGEMENT ORDERABLES Final Resu lt * [place] Modified Barium Swallow W Video (12/04/2024 2:20 PM CDT) Anatomical Region Laterality Modality Head and Neck N/A Radio Fluoroscop y 12/04/2024 4:08 PM CDT Impressions 12/05/2024 8:13 AM CDT The swallowing mechanism is abnormal; see above comments. Please refer to the Speech Pathology procedure note for safe swallow recommendations as well as additional information regarding the oral-pharyngeal swallow function, plan of care, and recommended follow up. Dictated by: Lyle Jason M.D. The radiology attending physician has personally reviewed this study, and had reviewed and/or edited this written report and agrees with it. Electronically signed by: Walt Estrada M.D. Narrative 12/05/2024 8:13 AM CDT EXAMINATION: MODIFIED BARIUM SWALLOW HISTORY: Dysphagia. TECHNIQUE: This procedure was completed in conjunction with a Speech Language Pathologist. The patient was given barium of multiple different consistencies to swallow. Video fluoroscopy was employed during the exam. FINDINGS: Oral-pharyngeal swallow function is severely impaired. Penetration: Yes There is penetration of thin liquids, nectar thick liquids, honey thick liquids. Penetration is not sensed. The penetrated material is not cleared. Aspiration: Yes There is aspiration of thin liquids, nectar thick liquids, honey thick liquids. Aspiration is sometimes sensed. The aspirated material is not cleared. Residue:Yes There is oral-pharyngeal residue of which, nectar thick liquids, honey thick liquids, puree, and solid. Residue is not sensed. The residual material is not cleared. Other comments: Cannot rule out aspiration of pudding residue Procedure Note Walt Estrada MD - 12/05/2024 EXAMINATION: MODIFIED BARIUM SWALLOW HISTORY: Dysphagia. TECHNIQUE: This procedure was completed in conjunction with a Speech Language Pathologist. The patient was given barium of multiple different consistencies to swallow. Video fluoroscopy was employed during the exam. FINDINGS: Oral-pharyngeal swallow function is severely impaired. Penetration: Yes There is penetration of thin liquids, nectar thick liquids, honey thick liquids. Penetration is not sensed. The penetrated material is not cleared. Aspiration: Yes There is aspiration of thin liquids, nectar thick liquids, honey thick liquids. Aspiration is sometimes sensed. The aspirated material is not cleared. Residue:Yes There is oral-pharyngeal residue of which, nectar thick liquids, honey thick liquids, puree, and solid. Residue is not sensed. The residual material is not cleared. Other comments: Cannot rule out aspiration of pudding residue IMPRESSION: The swallowing mechanism is abnormal; see above comments. Please refer to the Speech Pathology procedure note for safe swallow recommendations as well as additional information regarding the oral-pharyngeal swallow function, plan of care, and recommended follow up. Dictated by: Lyle Jason M.D. The radiology attending physician has personally reviewed this study, and had reviewed and/or edited this written report and agrees with it. Electronically signed by: Walt Estrada M.D. us Kali Connolly MD IMG FLUOROSCOPY PROCEDURES Final Result * POCT glucose (12/04/2024 12:08 PM CDT) Glucose, POC 178 70 - 199 mg/dL Blood 12/04/2024 12:0 8 PM CDT 12/04/2024 12:08 PM CDT Kali Connolly MD LAB POCT ORDERABLES - CARI CE Final Result Performing Organization Address [facility] Co de Phone Number [facility] [employer] [place] [address] * (ABNORMAL) Lactate (12/04/2024 9:43 AM CDT) Lactate 2.3(H) 0.7 - 2.0 mmol/L Blood 12/04/2024 9:43 AM CDT 12/04/2024 10:03 AM CDT Kali Connolly MD LAB BLOOD ORDERABLES Final Result Performing Organization Address [facility] Co de Phone Number [facility] [employer] [place] [address] * POCT glucose (12/04/2024 7:42 AM CDT) Glucose, POC 153 70 - 199 mg/dL Blood 12/04/2024 7:42 AM CDT 12/04/2024 7:42 AM CDT Ace gN MD LAB POCT ORDERABLES - DE VICE Final Result Performing Organization Address [facility] [place] [address] * Radiology Event (12/04/2024 5:52 AM CDT) Anatomical Region Laterality Modality Computed Tomogra phy 12/04/2024 7:50 PM CDT Impressions 12/05/2024 8:52 AM CDT Uncomplicated right upper extremity IV infiltration without complication. Instructions given to patient regarding event: unable to given mental status. Dictated by: Lyle Barahona MD The radiology attending physician has personally reviewed this study, and had reviewed and/or edited this written report and agrees with it. Electronically signed by: Maverick Solorio M.D., MPH Narrative 12/05/2024 8:52 AM CDT EXAMINATION: General Radiology Event Report DATE of EVENT:12/04/2024 5:52 AM I was asked to see JESUS SOTO regarding IV infiltration. Event: This was a IV Infiltration Radiology was called to come the scanner for an IV infiltration in the right antecubital fossa. Approximately 60 mL of ionic contrast was injected into the right arm. On arrival to the scanner, patient was altered and unable to answer any questions regarding pain or symptoms. On physical exam. There is a firm 4 cm area around the infiltrated IV which progressively became softer over the next few minutes. Distal pulses and strength are intact. Small areas of bruising were noted around the IV. Actions: Physical exam, alternate heat and ice packs, monitor vitals The highest level of care provided Vital performed/Monitoring Procedure Note Maverick Solorio MD - 12/05/2024 EXAMINATION: General Radiology Event Report DATE of EVENT:12/04/2024 5:52 AM I was asked to see JESUS SOTO regarding IV infiltration. Event: This was a IV Infiltration Radiology was called to come the scanner for an IV infiltration in the right antecubital fossa. Approximately 60 mL of ionic contrast was injected into the right arm. On arrival to the scanner, patient was altered and unable to answer any questions regarding pain or symptoms. On physical exam. There is a firm 4 cm area around the infiltrated IV which progressively became softer over the next few minutes. Distal pulses and strength are intact. Small areas of bruising were noted around the IV. Actions: Physical exam, alternate heat and ice packs, monitor vitals The highest level of care provided Vital performed/Monitoring IMPRESSION: Uncomplicated right upper extremity IV infiltration without complication. Instructions given to patient regarding event: unable to given mental status. Dictated by: Lyle Barahona MD The radiology attending physician has personally reviewed this study, and had reviewed and/or edited this written report and agrees with it. Electronically signed by: Maverick Solorio M.D., MPH us Lyle Barahona MD IMG CT PROCEDURE S Final Result * CT Chest PE (CTA) W Contrast (12/04/2024 5:52 AM CDT) Anatomical Region Laterality Modality Body N/A Computed Tomogra phy 12/04/2024 6:11 AM CDT Impressions 12/04/2024 7:33 AM CDT Limited examination for pulmonary embolism due to extensive respiratory motion. Within that limitation no central or lobar pulmonary embolism. Dictated by: Gerry Ruiz M.D. The radiology attending physician has personally reviewed this study, and had reviewed and/or edited this written report and agrees with it. Electronically signed by: Robby Hernandez M.D. Narrative 12/04/2024 7:33 AM CDT EXAMINATION: CT CHEST PE (CTA) W CONTRAST HISTORY: Hypoxia TECHNIQUE: Computed tomographic images were acquired using a chest angiographic protocol optimized for pulmonary embolism. Contrast enhanced transaxial images were obtained following the intravenous administration of 70 ml of nonionic contrast. Multiplanar reformatted images and three-dimensional images were obtained on the 3-D workstation and sent to the PACS archival system. COMPARISON: CT of the abdomen and pelvis dated 02/16/2022 FINDINGS: Right greater than left basilar atelectasis. No suspicious pulmonary nodule or consolidation. Calcified right lung pulmonary nodules and right hilar/mediastinal lymph nodes in keeping with sequela of old granulomatous disease. There is no pleural effusion or pneumothorax. There are calcified pleural plaques bilaterally, recommend correlation with asbestos exposure. Evaluation for pulmonary embolism is limited by respiratory motion. There is no central or lobar pulmonary embolism. Heart size is normal without pericardial effusion. Moderate coronary vascular calcifications. Normal caliber thoracic aorta with mild calcific atherosclerosis. No thoracic lymphadenopathy. There is mild thickening of the mid to distal esophagus. The partially imaged upper abdomen demonstrates no acute abnormality. No suspicious osseous lesion. Procedure Note Robby Hernandez MD - 12/04/2024 EXAMINATION: CT CHEST PE (CTA) W CONTRAST HISTORY: Hypoxia TECHNIQUE: Computed tomographic images were acquired using a chest angiographic protocol optimized for pulmonary embolism. Contrast enhanced transaxial images were obtained following the intravenous administration of 70 ml of nonionic contrast. Multiplanar reformatted images and three-dimensional images were obtained on the 3-D workstation and sent to the PACS archival system. COMPARISON: CT of the abdomen and pelvis dated 02/16/2022 FINDINGS: Right greater than left basilar atelectasis. No suspicious pulmonary nodule or consolidation. Calcified right lung pulmonary nodules and right hilar/mediastinal lymph nodes in keeping with sequela of old granulomatous disease. There is no pleural effusion or pneumothorax. There are calcified pleural plaques bilaterally, recommend correlation with asbestos exposure. Evaluation for pulmonary embolism is limited by respiratory motion. There is no central or lobar pulmonary embolism. Heart size is normal without pericardial effusion. Moderate coronary vascular calcifications. Normal caliber thoracic aorta with mild calcific atherosclerosis. No thoracic lymphadenopathy. There is mild thickening of the mid to distal esophagus. The partially imaged upper abdomen demonstrates no acute abnormality. No suspicious osseous lesion. IMPRESSION: Limited examination for pulmonary embolism due to extensive respiratory motion. Within that limitation no central or lobar pulmonary embolism. Dictated by: Gerry Ruiz M.D. The radiology attending physician has personally reviewed this study, and had reviewed and/or edited this written report and agrees with it. Electronically signed by: Robby Hernandez M.D. Elvia Yates MD IMG CT PROCEDURES Final Resu lt * XR Outside Reference (12/04/2024 5:26 AM CDT) Impressions [facility] - 12/04/2024 5:26 AM CDT These images are for Reference purposes only and have not been reviewed by [facility] Radiology. There will be no report generated by a [facility] Radiologist. Narrative [facility] - 12/04/2024 5:26 AM CDT EXAMINATION: Images For Reference Purposes Only Elier Edward MD IMG XR PROCEDURES Final R esult [facility] * eGFR (12/04/2024 4:52 AM CDT) eGFR 74 >=60 mL/min/1. 73 m2 Comment: Interpretive Data [...] interpretive data was last reviewed 2021. Blood 12/04/2024 4:52 AM CDT 12/04/2024 5:09 AM CDT us Elvia Yates MD LAB BLOOD ORDERABLES Final R esult [facility] [place] [address] * (ABNORMAL) CBC without differential (12/04/2024 4:52 AM CDT) WBC 13.27(H) 3.80 - 9.90 K/cumm Hgb 13.8 13.0 - 17.5 g/dL [facility] Hct 41.4 38.9 - 50.3 % [facility] Plt 221 150 - 400 K/cumm [facility] MPV 9.2 9.1 - 12.3 fL [facility] RBC 4.69 4.30 - 5.80 M/cumm [facility] MCV 88.3 81.3 - 96.4 fL [facility] MCH 29.4 27.1 - 33.3 pg [facility] MCHC 33.3 32.3 - 35.7 g/dL [facility] RDW CV 14.7 11.1 - 14.9 % [facility] RDW SD 47.4 35.7 - 48.1 fL [facility] NRBC abs 0.00 0.00 - 0.01 K/cumm [facility] Blood 12/04/2024 4:52 AM CDT 12/04/2024 5:09 AM CDT Elvia Yaets MD LAB BLOOD ORDERABLES Final R esult Performing Organization Address City/[facility]/ZIP Co de Phone Number [facility] [place] [address] * Basic metabolic panel (12/04/2024 4:52 AM CDT) [facility] Sodium 143 135 - 145 mmol/L Potassium, pl 4.6 3.3 - 4.9 mmol/L [facility] Chloride 104 97 - 110 mmol/L [facility] CO2 24 22 - 32 mmol/L [facility] Anion gap 15 2 - 15 mmol/L [facility] BUN 16 6 - 25 mg/dL [facility] Creatinine 1.03 0.80 - 1.30 mg/dL [facility] Glucose 156 70 - 199 mg/dL [facility] Comment: Interpretive Data Fasting glucose [...] interpretive data was last revised 2022. Calcium 9.5 8.5 - 10.3 mg/dL [facility] Blood 12/04/2024 4:52 AM CDT 12/04/2024 5:09 AM CDT Elvia Yates MD LAB BLOOD ORDERABLES Final R esult Performing Organization Address City/[facility]/ZIP Co de Phone Number [facility] [place] [address] * POCT glucose (12/04/2024 4:25 AM CDT) Glucose, POC 145 70 - 199 mg/dL Blood 12/04/2024 4:25 AM CDT 12/04/2024 4:25 AM CDT Elvia Yates MD LAB POCT ORDERABLES - DEVICE Final Result Performing Organization Address City/[facility]/ZIP Co de Phone Number [facility] [place] [address] * POCT glucose (12/04/2024 12:01 AM CDT) [facility] Glucose, POC 146 70 - 199 mg/dL Blood 12/04/2024 12:0 1 AM CDT 12/04/2024 12:01 AM CDT Aicha Otto MD LAB POCT ORDERABL ES - DEVICE Final Result Performing Organization Address [facility] Co de Phone Number [facility] [place] [place] [address] * (ABNORMAL) Sepsis Lactate w/ Reflex (12/03/2024 11:58 PM CDT) [facility] Sepsis Lactate 4.1(C) 0.7 - 2.0 mmol/L Blood 12/03/2024 11:5 8 PM CDT 12/04/2024 12:03 AM CDT Orlando Call MD LAB BLOOD ORDERABLES Final Re sult Performing Organization Address City/[facility]/ZIP Co de Phone Number [facility] [place] [address] * Critical Result Callback Chemistry (12/03/2024 11:58 PM CDT) Pathologist [facility] [place] Date Notified 20241204 Time Notified 12 [facility] TestName Sepsis Lactate [facility] Called/Read Back Namrata [facility] Credentials MD [facility]IN [facility] Called By XI [facility] Blood 12/03/2024 11:5 8 PM CDT 12/04/2024 12:03 AM CDT us Orlando Call MD LAB BLOOD ORDERABLES Final Re sult [facility] Department [place] [address] * POCT glucose (12/03/2024 8:56 PM CDT) [facility] Glucose, POC 147 70 - 199 mg/dL Blood 12/03/2024 8:56 PM CDT 12/03/2024 8:56 PM CDT us Aicha Otto MD LAB POCT ORDERABL ES - DEVICE Final Result Performing Organization Address City/[facility]/ZIP Co de Phone Number [facility] Department [place] [address] * POCT glucose (12/03/2024 7:41 PM CDT) [facility] Glucose, POC 147 70 - 199 mg/dL Blood 12/03/2024 7:41 PM CDT 12/03/2024 7:41 PM CDT us Aicha Otto MD LAB POCT ORDERABL ES - DEVICE Final Result Performing Organization Address City/[facility]/ZIP Co de Phone Number [facility] [place] [address] * (ABNORMAL) Sepsis Lactate w/ Reflex (12/03/2024 6:10 PM CDT) Sepsis Lactate 4.1(C) 0.7 - 2.0 mmol/L Blood 12/03/2024 6:10 PM CDT 12/03/2024 6:19 PM CDT Orlando Call MD LAB BLOOD ORDERABLES Final Re sult [facility] [place] [address] * Critical Result Callback Chemistry (12/03/2024 6:10 PM CDT) Date Notified 20241203 Time Notified 18:25 [facility] TestName Sepsis Lactate [facility] Called/Read Back Rashida [facility] Credentials MD [facility] Called By [facility] Blood 12/03/2024 6:10 PM CDT 12/03/2024 6:19 PM CDT Orlando Call MD LAB BLOOD ORDERABLES Final Re sult Performing Organization Address [facility] [place] [address] * (ABNORMAL) Urinalysis reflex to microscopic and culture Urine (12/03/2024 5:13 PM CDT) Color, ur Straw Yellow Clarity, ur Cloudy(A) Clear [facility] Specific gravity, ur 1.033(H) 1.003 - 1.030 [facility] pH, urine 7.5 [facility] Comment: Interpretive Data U rine pH is affected by diet, medications, systemic acid-base disturbances, and renal tubular function. pH may affect urinary stone formation. For example, urine pH below 6.0 may help reduce the tendency for calcium phosphate stones and pH greater than 6.0 may reduce the tendency for uric acid stone formation. Source: [facility] [employer] Current Interpretive Data was last revised on 2017 Protein, ur ql Trace Negative [facility] Glucose, ur ql Negative Negative [facility] Ketones, ur Negative Negative [facility] Bilirubin, ur Negative Negative [facility] Blood, ur Trace(A) Negative [facility] Urobilinogen, ur <2.0 <2.0 mg/dL [facility] Nitrite, ur Negative Negative [facility] Leukocyte esterase, ur 3+(A) Negative [facility] UA reflex comment Reflex to microscopic UA will be performed. [facility] Urine 12/03/2024 5:13 PM CDT 12/03/2024 5:20 PM CDT us Orlando Call MD LAB MICROBIOLOGY - GENERAL OR DERABLES Final Result [facility] Department [place] [address] * Drugs of Abuse Screen, Urine without Confirmation (12/03/2024 5:13 PM CDT) Amphetamine, ur Not Detected CutOff 500ng/mL Comment: Interpretive Data - Amphetamines: Samples containing greater than 500 ng/mL d-methamphetamine or other cross-reacting amphetamine compounds are reported as positive. Amphetamine immunoassays are subject to significant false positive rates due to cross-reactivity of non-amphetamine drugs. Confirmatory testing required for definitive results. Current Interpretive Data was last reviewed 2022. Barbiturates, ur Not Detected CutOff 200ng/mL [facility] Comment: Interpretive Data - Barbiturates: Samples containing greater than 200 ng/mL secobarbital or other cross-reacting barbiturate compounds are reported as positive. False positive and false negative results are possible. Confirmatory testing required for definitive results. Current Interpretive Data was last reviewed 2022. Benzodiazepines, ur Not Detected CutOff 100ng/mL [facility] Comment: Interpretive Data - Benzodiazepines: Samples containing greater than 100 ng/mL nordiazepam or other cross-reacting compounds are reported as positive. False positive and false negative results are possible. Confirmatory testing required for definitive results. Current Interpretive Data was last reviewed 2022. Cannabinoids, ur Not Detected CutOff 50 ng/mL [facility] Comment: Interpretive Data - Cannabinoids: Samples containing greater than 50 ng/mL delta-9 THC -COOH or other cross- reacting compounds are reported as positive. False positive and false negative results are possible. Confirmatory testing required for definitive results. Current Interpretive Data was last reviewed 2022. Cocaine, ur Not Detected CutOff 150ng/mL [facility] Comment: Interpretive Data - Cocaine: Samples containing greater than 150 ng/mL benzoylecgonine or other cross- reacting compounds are reported as positive. False positive and false negative results are possible. Confirmatory testing required for definitive results. Current Interpretive Data was last reviewed 2022. Fentanyl, Ur Not Detected CutOff 5 ng/mL [facility] Comment: Interpretive Data - Fentanyl: Samples containing greater than 5 ng/mL norfentanyl, fentanyl, or other cross-reacting fentanyl compounds are reported as positive. False positive and false negative results are possible. Confirmatory testing required for definitive results. Current Interpretive Data was last reviewed 2023. Methadone, ur Not Detected CutOff 300ng/mL [facility] Comment: Interpretive Data - Methadone: Samples containing greater than 300 ng/mL d,l-methadone or other cross-reacting compounds are reported as positive. False positive and false negative results are possible. Confirmatory testing required for definitive results. Current Interpretive Data was last reviewed 2022. Opiates, ur Not Detected CutOff 300ng/mL [facility] Comment: Interpretive Data - Opiates: Samples containing greater than 300 ng/mL morphine or other cross-reacting compounds are reported as positive. False positive and false negative results are possible. Confirmatory testing required for definitive results. Current Interpretive Data was last reviewed 2022. Oxycodone, ur Not Detected CutOff 100ng/mL [facility] Comment: Interpretive Data - Oxycodone: Samples containing greater than 100 ng/mL oxycodone or other cross-reacting compounds are reported as positive. False positive and false negative results are possible. Confirmatory testing required for definitive results. Current Interpretive Data was last reviewed 2022. Phencyclidine, ur Not Detected CutOff 25 ng/mL [facility] Comment: Interpretive Data - Phencyclidine: Samples containing greater than 25 ng/mL phencyclidine or other cross-reacting compounds are reported as positive. False positive and false negative results are possible. Confirmatory testing required for definitive results. Current Interpretive Data was last reviewed 2022. Urine Creatinine 34 mg/dL [facility] Comment: Interpretive Data Urine Creatinine: < 10 mg/dL is extremely dilute = or > 10 but < 20 mg/dL is dilute = or > 20 mg/dL is normal Current Interpretive Data was last revised on 2017. Urine 12/03/2024 5:13 PM CDT 12/03/2024 5:28 PM CDT Narrative [facility] - 12/03/2024 6:00 PM CDT Drug of Abuse screening is performed by immunoassay for medical purposes only. This is not to be used for Pain Management purposes. Orlando Call MD LAB URINE ORDERABLES Final Re sult Performing Organization Address [facility] de Phone Number [facility] Department [place] [address] * Sodium, urine, random (12/03/2024 5:13 PM CDT) Sodium, ur 138 mmol/L Comment: Interpretive Data No reference range established. Current interpretive data was last revised 2018. Urine 12/03/2024 5:13 PM CDT 12/03/2024 5:28 PM CDT us Nidhi Morgan MD LAB URINE ORDERABLES Final Re sult Performing Organization Address [facility] Co de Phone Number [facility] Department [place] [address] * Creatinine, urine, random (12/03/2024 5:13 PM CDT) Creatinine Ur 33.4 mg/dL Comment: Interpretive Data No reference range established. Current interpretive data was last revised 2018. Urine 12/03/2024 5:13 PM CDT 12/03/2024 5:28 PM CDT us Nidhi Morgan MD LAB URINE ORDERABLES Final Re sult Performing Organization Address [facility] Co de Phone Number [facility] [place] [address] * (ABNORMAL) Urinalysis, microscopic only (12/03/2024 5:13 PM CDT) WBC, ur >50(A) 0 - 5 /HPF RBC, ur 3-5(A) 0 - 2 /HPF [facility] Culture Reflex Comment Reflex to urine culture will be performed. [facility] Urine 12/03/2024 5:13 PM CDT 12/03/2024 5:20 PM CDT Orlando Call MD LAB URINE ORDERABLES Final Re sult Performing Organization Address [facility] Co de Phone Number [facility] Department [place] [address] * Urine culture Urine (12/03/2024 5:13 PM CDT) Report Final Report: Less than 100,000 colonies/mL (clinically insignificant growth based on current clinical standards) Organism (CLINICALLY INSIGNIFICANT GROWTH [facility] Urine 12/03/2024 5:13 PM CDT 12/03/2024 8:40 PM CDT Narrative [facility] - 12/04/2024 10:31 PM CDT Urine culture reflexed based upon urinalysis results. Testing performed by [facility] ([phone]) Orlando Call MD LAB MICROBIOLOGY - GENERAL OR DERABLES Final Result Performing Organization Address [facility] Co de Phone Number [facility] [place] [address] * HIV 1/2 Antibody plus p24 Antigen Blood (12/03/2024 4:52 PM CDT) Pathologist [facility] [place] HIV 1/2 ab + p24 ag Nonreactive Nonreactive Comment:Nonreactive for HIV- 1 antigen and HIV-1/HIV-2 antibodies. No laboratory evidence of HIV infection. If acute HIV infection is suspected, consider testing for HIV-1 RNA. Current interpretive data was last revised on 21. Blood 12/03/2024 4:52 PM CDT 12/03/2024 5:06 PM CDT Orlando Call MD LAB MICROBIOLOGY - GENERAL OR DERABLES Final Result Performing Organization Address City/[facility] Co de Phone Number [facility] Department [place] [place] [address] * RPR Blood (12/03/2024 4:52 PM CDT) [facility] RPR Nonreactive Nonreactive Blood 12/03/2024 4:52 PM CDT 12/03/2024 5:07 PM CDT Orlando Call MD LAB MICROBIOLOGY - GENERAL OR DERABLES Final Result Performing Organization Address City/[facility] Co de Phone Number [facility] [place] [address] * (ABNORMAL) Vitamin B1 (12/03/2024 4:52 PM CDT) Pathologist [facility] [place] Thiamine (Vit B1) 192(H) 70 - 180 nmol/L [facility] Comment: ADDITIONAL INFORMATION This test was developed and its performance characteristics determined by [facility] in a manner consistent with CLIA requirements. This test has not been cleared or approved by the [place].S. Food and Drug Administration. Test Performed by: [facility] - [address] [address] [employer]: Elke Hardwick Ph.D.; CLIA# [id number] Blood 12/03/2024 4:52 PM CDT 12/03/2024 5:15 PM CDT Result [facility] Orlando Call MD LAB BLOOD ORDERABLES Final Re sult Performing Organization Address [facility] Co de Phone Number [facility] [place] [address] [facility] * Phosphorus (12/03/2024 4:52 PM CDT) Phosphorus, pl 2.5 2.3 - 4.5 mg/dL Blood 12/03/2024 4:52 PM CDT 12/03/2024 5:06 PM CDT Result [facility] Orlando Call MD LAB BLOOD ORDERABLES Final Re sult Performing Organization Address [facility] Co de Phone Number [facility] [place] [address] * Magnesium (12/03/2024 4:52 PM CDT) Magnesium 1.7 1.4 - 2.5 mg/dL Blood 12/03/2024 4:52 PM CDT 12/03/2024 5:06 PM CDT Result [facility] Orlando Call MD LAB BLOOD ORDERABLES Final Re sult Performing Organization Address [facility] Co de Phone Number [facility] [place] [address] * Vitamin B12 (12/03/2024 4:52 PM CDT) Vitamin B12 761 230 - 1,250 pg/mL Blood 12/03/2024 4:52 PM CDT 12/03/2024 5:06 PM CDT Result [facility] Orlando Call MD LAB BLOOD ORDERABLES Final Re sult Performing Organization Address [facility] [place] [address] * Ammonia (12/03/2024 4:52 PM CDT) Ammonia 23 <=50 mcmol/L Blood 12/03/2024 4:52 PM CDT 12/03/2024 5:04 PM CDT Orlando Call MD LAB BLOOD ORDERABLES Final Re sult Performing Organization Address [facility] [place] [address] * Ethanol (12/03/2024 4:52 PM CDT) Ethanol <10 <=10 mg/dL Comment: Interpretive Data Legal limit of intoxication > or = 80 mg/dL Levels > or = 400 mg/dL are potentially TOXIC. Current interpretive data was last revised on 2018. Blood 12/03/2024 4:52 PM CDT 12/03/2024 5:06 PM CDT Orlando Call MD LAB BLOOD ORDERABLES Final Re sult Performing Organization Address [facility] Co de Phone Number [facility] [place] [address] * OK CRITICAL CARE ILL/INJURED PATIENT INIT 30-74 MIN (12/03/2024 4:09 PM CDT) Narrative Luis F Perez MD - 12/03/2024 4:09 PM CDT Luis F Perez MD 12/03/2024 4:09 PM Critical Care Performed by: Luis F Perez MD Authorized by: Deshawn Valente MD Critical care provider statement: As reflected in the history, physical exam, orders, notes, and/or MDM, I was personally present while the patient was critically ill and provided critical care services for 45 minutes, excluding time involved in separately billable procedures. Critical care was necessary to treat or prevent imminent or life-threatening deterioration of the following condition(s): Altered mentation, htn, metabolic issue Critical care was time spent by me providing the following: continuous telemetry, continuous pulse oximetry, interpretation of bedside monitors, imaging, and arterial/venous lab draws and serial bedside patient exams frequent neurologic exams and decision regarding acute lytic therapy initiation and active titration of vasoactive medications I provided emergent necessary critical care medicine services to this patient. I ordered and reviewed test results and/or imaging studies. I spent time discussing the management of this critically ill patient with consultants and the medical staff. I spent time discussing the management and therapeutic options for this critically ill patient with the patient themselves or with the appropriate designated surrogate decision-maker. I spent time documenting in the medical record. us Deshawn Valente MD IN CLINIC/BEDSIDE ORDERAB LES Final Result * Blood culture Blood (12/03/2024 4:08 PM CDT) Report Final Report: No growth Blood 12/03/2024 4:08 PM CDT 12/03/2024 4:26 PM CDT Narrative [facility] - 12/08/2024 7:00 AM CDT Collection->Peripheral 1. Blood cultures are incubated for 4 days on a continuously monitored blood culture system. The first report of a negative culture is issued within 24 hours of receipt of the specimen in the laboratory. 2. Positive culture results are reported as soon as they are detected. 3. The most important factor for detection of microbes in the setting of bloodstream infection is the volume of blood submitted for culture. Failure to collect an optimal blood volume can result in false negative blood cultures. 4. For pediatric patients, the recommended blood volume to collect follows a weight based strategy. See the electronic test catalog for collection instructions. 5. For positive blood cultures, a rapid molecular test may be performed for organism identification using the keven ePlex blood culture identification panel for gram positive (BCID-GP) and gram negative (BCID-GN) organisms. This nucleic acid amplification test detects microbial DNA in positive blood culture broth. This assay has been cleared by the [place] Food and Drug Administration and its performance characteristics have been verified by the [facility]. For questions about this culture, contact the Microbiology Laboratory at [phone]. Interpretive data was last revised on 24. us Rashida Adair MD PhD LAB MICROBIOLOGY [facility] TAYLOR CARRASCO Final Result Performing Organization Address City/[facility]/ZIP Co de Phone Number [facility] Department [place] [address] * Blood culture Blood (12/03/2024 4:07 PM CDT) Report Final Report: No growth Blood 12/03/2024 4:07 PM CDT 12/03/2024 4:26 PM CDT Dilip [facility] - 12/08/2024 7:00 AM CDT Collection->Peripheral 1. Blood cultures are incubated for 4 days on a continuously monitored blood culture system. The first report of a negative culture is issued within 24 hours of receipt of the specimen in the laboratory. 2. Positive culture results are reported as soon as they are detected. 3. The most important factor for detection of microbes in the setting of bloodstream infection is the volume of blood submitted for culture. Failure to collect an optimal blood volume can result in false negative blood cultures. 4. For pediatric patients, the recommended blood volume to collect follows a weight based strategy. See the electronic test catalog for collection instructions. 5. For positive blood cultures, a rapid molecular test may be performed for organism identification using the keven ePlex blood culture identification panel for gram positive (BCID-GP) and gram negative (BCID-GN) organisms. This nucleic acid amplification test detects microbial DNA in positive blood culture broth. This assay has been cleared by the [place] Food and Drug Administration and its performance characteristics have been verified by the [facility] Microbiology Laboratory. For questions about this culture, contact the Microbiology Laboratory at [phone]. Interpretive data was last revised on 24. us Rashida Adair MD PhD LAB MICROBIOLOGY [facility] TAYLOR CARRASCO Final Result Performing Organization Address City/[facility]/ZIP Co de Phone Number BRENNAN TOLBERT [facility] Department [place] [address] * CTA/CTP Rapid Stroke (C) (12/03/2024 3:59 PM CDT) Anatomical Region Laterality Modality Head and Neck N/A Computed Tomogra phy 12/03/2024 5:06 PM CDT Impressions 12/03/2024 5:31 PM CDT 1. No acute intracranial hemorrhage. 2. No new large territory edematous infarct. 3. No visual perfusion deficit (motion degraded). 4. Multifocal intracranial and extracranial atherosclerotic disease, with some progression of P2 today. 5. Patent right internal carotid stent. Mild narrowing of left internal carotid, unchanged. The Critical results were discussed with Dr. Nidia Pagan by Dr. Ruthie Villalobos M.D. on 12/03/2024 3:44PM, 4:00PM and 5:03 PM. Dictated by: Ruthie Villalobos M.D. The radiology attending physician has personally reviewed this study, and had reviewed and/or edited this written report and agrees with it. Electronically signed by: Bella Granados M.D., Ph.D. Narrative 12/03/2024 5:31 PM CDT EXAMINATION: 1. Computed tomography angiography (CTA) of the head without and with contrast 2. Computed tomography angiography (CTA) of the neck with contrast 3. CT perfusion imaging of the head with contrast HISTORY: 79 years-old Male with altered mental status and slurred speech. TECHNIQUE: CT of the head was performed with images acquired from skull base to vertex without intravenous contrast. Computed tomographic angiography was obtained from the aortic arch to the vertex following the uneventful administration of intravenous contrast. 3D images of the CTA were generated on a dedicated workstation/cafeteria server. [employer] software ([employer]) was used for automated analyses of the CTA. CT perfusion of the brain was performed with intravenous contrast using a separate data acquisition. These data were transmitted to a separate workstation/cafeteria server for processing by [employer] software ([employer]) to produce automated calculations of the estimated cerebral blood flow and Tmax. Contrast information: 110 mL Optiray-350 IV COMPARISON: MRI brain with and without contrast, CTA head and neck with without contrast 09/05/2023. CT head without contrast 12/03/24. FINDINGS: HEAD CT FINDINGS: There is a large arachnoid cyst involving the left frontal and middle cranial fossa and left frontal approach ventriculoperitoneal shunt catheter with tip terminating in the body of the right lateral ventricle. The midline shift and the cyst itself measure slightly increased in size compared to 08/30/23; slight variations may be due to differences in technique. The size of the midline shift and cyst are likely grossly the same. Overall, the ventricular system is unchanged in size and morphology. 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 Hypoattenuation in the left thalamus and left occipital lobe is unchanged. There is no acute intracranial hemorrhage. There is no acute fracture. ANGIOGRAPHIC FINDINGS: The visualized aortic arch appears normal with normal configuration of the great vessels. There is no significant stenosis of the origins of the great vessels. There is no geographic area of vascular paucity in the brain. Left anterior circulation: Mild narrowing at origin of left common carotid, which also has non-calcified plaque. Left vertebral artery dominant. L CCA: no occlusion or significant stenosis L carotid bifurcation: no occlusion or significant stenosis L ICA cervical: no occlusion or significant stenosis L ICA intracranial: no occlusion or significant stenosis L M1: no occlusion or significant stenosis L M2 proximal or dominant: no occlusion or significant stenosis L mid-M2/M3 branches: no occlusion or significant stenosis L ANAND: no occlusion or significant stenosis Right anterior circulation: Mild narrowing at origin of right common carotid. Right vertebral artery terminates in PICA. Partial origin of the right posterior cerebral artery. R CCA: no occlusion or significant stenosis R carotid bifurcation: no occlusion or significant stenosis. There is a stent in the right carotid starting at the origin with patent contrast opacification. R ICA cervical: no occlusion or significant stenosis R ICA intracranial: no occlusion or significant stenosis R M1: no occlusion or significant stenosis R M2 proximal or dominant: no occlusion or significant stenosis R mid-M2/M3 branches: no occlusion or significant stenosis R ANAND: no occlusion or significant stenosis Posterior circulation: L Vertebral Artery: no occlusion or significant stenosis R Vertebral Artery: no occlusion or significant stenosis Basilar Artery: no occlusion or significant stenosis L PLASTICS PROCESS HAND: no occlusion or significant stenosis. Diminutive P1, likely congenital. R PLASTICS PROCESS HAND: High grade stenosis or occlusion of right P2 segment, progressed from prior. There is no CTA evidence for cerebral aneurysm. There is no evidence for an arteriovenous malformation. Multifocal intracranial and extracranial atherosclerotic disease. INCIDENTAL FINDINGS: There is no suspicious cervical lymphadenopathy. There is no significant cervical spondylosis. Limited views of the lung apices are normal. PERFUSION FINDINGS: Given the limitations of the motion, there is no measurable perfusion deficit in the brain. Procedure Note Bella Granados MD PhD - 12/03/2024 EXAMINATION: 1. Computed tomography angiography (CTA) of the head without and with contrast 2. Computed tomography angiography (CTA) of the neck with contrast 3. CT perfusion imaging of the head with contrast HISTORY: 79 years-old Male with altered mental status and slurred speech. TECHNIQUE: CT of the head was performed with images acquired from skull base to vertex without intravenous contrast. Computed tomographic angiography was obtained from the aortic arch to the vertex following the uneventful administration of intravenous contrast. 3D images of the CTA were generated on a dedicated workstation/cafeteria server. [employer] software ([employer]) was used for automated analyses of the CTA. CT perfusion of the brain was performed with intravenous contrast using a separate data acquisition. These data were transmitted to a separate workstation/cafeteria server for processing by [employer] software ([employer]) to produce automated calculations of the estimated cerebral blood flow and Tmax. Contrast information: 110 mL Optiray-350 IV COMPARISON: MRI brain with and without contrast, CTA head and neck with without contrast 09/05/2023. CT head without contrast 12/03/24. FINDINGS: HEAD CT FINDINGS: There is a large arachnoid cyst involving the left frontal and middle cranial fossa and left frontal approach ventriculoperitoneal shunt catheter with tip terminating in the body of the right lateral ventricle. The midline shift and the cyst itself measure slightly increased in size compared to 08/30/23; slight variations may be due to differences in technique. The size of the midline shift and cyst are likely grossly the same. Overall, the ventricular system is unchanged in size and morphology. 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 Hypoattenuation in the left thalamus and left occipital lobe is unchanged. There is no acute intracranial hemorrhage. There is no acute fracture. ANGIOGRAPHIC FINDINGS: The visualized aortic arch appears normal with normal configuration of the great vessels. There is no significant stenosis of the origins of the great vessels. There is no geographic area of vascular paucity in the brain. Left anterior circulation: Mild narrowing at origin of left common carotid, which also has non-calcified plaque. Left vertebral artery dominant. L CCA: no occlusion or significant stenosis L carotid bifurcation: no occlusion or significant stenosis L ICA cervical: no occlusion or significant stenosis L ICA intracranial: no occlusion or significant stenosis L M1: no occlusion or significant stenosis L M2 proximal or dominant: no occlusion or significant stenosis L mid-M2/M3 branches: no occlusion or significant stenosis L ANAND: no occlusion or significant stenosis Right anterior circulation: Mild narrowing at origin of right common carotid. Right vertebral artery terminates in PICA. Partial origin of the right posterior cerebral artery. R CCA: no occlusion or significant stenosis R carotid bifurcation: no occlusion or significant stenosis. There is a stent in the right carotid starting at the origin with patent contrast opacification. R ICA cervical: no occlusion or significant stenosis R ICA intracranial: no occlusion or significant stenosis R M1: no occlusion or significant stenosis R M2 proximal or dominant: no occlusion or significant stenosis R mid-M2/M3 branches: no occlusion or significant stenosis R ANAND: no occlusion or significant stenosis Posterior circulation: L Vertebral Artery: no occlusion or significant stenosis R Vertebral Artery: no occlusion or significant stenosis Basilar Artery: no occlusion or significant stenosis L PLASTICS PROCESS HAND: no occlusion or significant stenosis. Diminutive P1, likely congenital. R PLASTICS PROCESS HAND: High grade stenosis or occlusion of right P2 segment, progressed from prior. There is no CTA evidence for cerebral aneurysm. There is no evidence for an arteriovenous malformation. Multifocal intracranial and extracranial atherosclerotic disease. INCIDENTAL FINDINGS: There is no suspicious cervical lymphadenopathy. There is no significant cervical spondylosis. Limited views of the lung apices are normal. PERFUSION FINDINGS: Given the limitations of the motion, there is no measurable perfusion deficit in the brain. IMPRESSION: 1. No acute intracranial hemorrhage. 2. No new large territory edematous infarct. 3. No visual perfusion deficit (motion degraded). 4. Multifocal intracranial and extracranial atherosclerotic disease, with some progression of P2 today. 5. Patent right internal carotid stent. Mild narrowing of left internal carotid, unchanged. The Critical results were discussed with Dr. Nidia Pagan by Dr. Ruthie Villalobos M.D. on 12/03/2024 3:44PM, 4:00PM and 5:03 PM. Dictated by: Ruthie Villalobos, M.D. The radiology attending physician has personally reviewed this study, and had reviewed and/or edited this written report and agrees with it. Electronically signed by: Bella Granados M.D., Ph.D. Result [facility] Keyanna Abraham MD IMG CT PROCEDURES Final Resu lt * (ABNORMAL) POCT prothrombin time, whole blood (12/03/2024 3:30 PM CDT) [facility] PT, POC 10.2(L) 10.6 - 13.5 sec INR, bld, POC 0.8(L) 0.9 - 1.2 [facility] Blood 12/03/2024 3:30 PM CDT 12/03/2024 3:30 PM CDT Result [facility] Deshawn Valente MD LAB POCT ORDERABLES - DEV ICE Final Result Performing Organization Address [facility] de Phone Number [facility] Department [place] [address] * POCT glucose (12/03/2024 3:29 PM CDT) [facility] Glucose, POC 127 70 - 199 mg/dL Blood 12/03/2024 3:29 PM CDT 12/03/2024 3:29 PM CDT Result [facility] Deshawn Valente MD LAB POCT ORDERABLES - DEV ICE Final Result Performing Organization Address [facility] de Phone Number [facility] Department [place] [address] * Blood gas, venous (12/03/2024 3:17 PM CDT) [facility] pH, Venous 7.42 7.32 - 7.43 PCO2, Venous 45 40 - 50 mmHg [facility] PO2, Venous 38 mmHg [facility] Comment: Interpretive Data No Reference Range Established Current Interpretive Data was last revised on 2017. HCO3 Venous, Calculated 30 20 - 30 mmol/L [facility] BE, venous 4 mmol/L [facility] Comment: Interpretive Data No Reference Range Established Current Interpretive Data was last revised on 2017. Blood 12/03/2024 3:17 PM CDT 12/03/2024 3:22 PM CDT Keyanna Abraham MD LAB BLOOD ORDERABLES Final R esult [facility] Department [place] [address] * (ABNORMAL) Sepsis Lactate w/ Reflex (12/03/2024 3:10 PM CDT) Sepsis Lactate 2.5(H) 0.7 - 2.0 mmol/L Blood 12/03/2024 3:10 PM CDT 12/03/2024 3:20 PM CDT Orlando Call MD LAB BLOOD ORDERABLES Final Re sult Performing Organization Address City/[facility]/ZIP Co de Phone Number [facility] Department [place] [address] * eGFR (12/03/2024 3:10 PM CDT) eGFR 83 >=60 mL/min/1. 73 m2 Comment: Interpretive Data [...] interpretive data was last reviewed 2021. Blood 12/03/2024 3:10 PM CDT 12/03/2024 3:33 PM CDT us Orlando Call MD LAB BLOOD ORDERABLES Final Re sult [facility] Department [place] [address] * Differential, auto (12/03/2024 3:10 PM CDT) Neutrophil abs 5.95 1.50 - 6.50 K/cumm Imm gran abs 0.03 0.00 - 0.10 K/cumm [facility] Lymphocyte abs 2.02 0.80 - 3.30 K/cumm [facility] Monocyte abs 0.74 0.20 - 0.80 K/cumm [facility] Eosinophil abs 0.28 0.00 - 0.50 K/cumm [facility] Basophil abs 0.05 0.00 - 0.10 K/cumm [facility] Neutrophil pct 65.5 % [facility] Comment: Interpretive Data Percent cell count reference ranges are not reported, since discordance with absolute values may lead to misinterpretation of CBC data. Current Interpretive Data was last revised on 2017. Imm gran pct 0.3 % [facility] Comment: Interpretive Data Percent cell count reference ranges are not reported, since discordance with absolute values may lead to misinterpretation of CBC data. Current Interpretive Data was last revised on 2017. Lymphocyte pct 22.3 % [facility] Comment: Interpretive Data Percent cell count reference ranges are not reported, since discordance with absolute values may lead to misinterpretation of CBC data. Current Interpretive Data was last revised on 2017. Monocyte pct 8.2 % [facility] Comment: Interpretive Data Percent cell count reference ranges are not reported, since discordance with absolute values may lead to misinterpretation of CBC data. Current Interpretive Data was last revised on 2017. Eosinophil pct 3.1 % [facility] Comment: Interpretive Data Percent cell count reference ranges are not reported, since discordance with absolute values may lead to misinterpretation of CBC data. Current Interpretive Data was last revised on 2017. Basophil pct 0.6 % [facility] Comment: Interpretive Data Percent cell count reference ranges are not reported, since discordance with absolute values may lead to misinterpretation of CBC data. Current Interpretive Data was last revised on 2017. Blood 12/03/2024 3:10 PM CDT 12/03/2024 3:33 PM CDT Orlando Call MD LAB BLOOD ORDERABLES Final Re sult [facility] Department [place] [address] * VerifyNow clopidogrel (12/03/2024 3:10 PM CDT) [employer] clopidogrel 177 PRU Comment: Interpretive Data Reference interval from adults not taking Plavix is 169-356 PRU. Output is reported in Plavix reaction units (PRU). A lower PRU indicates a more complete inhibition of P2Y12 ADP receptor by drugs such as clopidogrel or prasugrel. There is no consensus regarding a cut-off value for PRU when assessing patients' sensitivity to ADP P2Y12 receptor inhibitors. Clinicians should use this information based on their interpretation of currently available evidence to individualize patient management decisions. Conditions that may produce falsely low PRU results include anemia (Hct <29%) and thrombocytopenia (platelet count <90,000/mcL). Platelet responsiveness to Plavix should not be performed within 48 hours of treatment with GPIIbIIIa inhibitors etifibatide (Integrilin) or tirofiban (Aggrastat) or within 2 weeks of treatment with abciximab (Reopro). Current interpretive data was last revised on 2017. Blood 12/03/2024 3:10 PM CDT 12/03/2024 3:30 PM CDT Orlando Call MD LAB BLOOD ORDERABLES Final Re sult Performing Organization Address City/[facility]/ZIP Co de Phone Number [facility] [place] [address] * VerifyNow aspirin (12/03/2024 3:10 PM CDT) [facility] VerifyNow aspirin 631 ARU Comment: Interpretive Data Reference interval from adults not taking Aspirin is 577-711 ARU. Results could be affected by anemia (Hct <29%) and thrombocytopenia (platelet count <90,000/mcL), conditions which can reduce in-vitro platelet aggregation and produce lower ARU results independent of aspirin inhibition. Platelet responsiveness to aspirin should not be performed within 48 hours of treatment with GPIIbIIIa inhibitors etifibatide (Integrilin) or tirofiban (Aggrastat) or within 2 weeks of treatment with abciximab (Reopro). Possible causes for an ARU greater than or equal to 550 in patients prescribed aspirin include: recent discontinuation of aspirin; co-ingestion of aspirin and other nonsteroidal medications which compete for cyclo-oxygenase binding; intrinsic resistance to aspirin, as well as unknown factors. Current interpretive data was last revised on 2017. Blood 12/03/2024 3:10 PM CDT 12/03/2024 3:30 PM CDT Orlando Call MD LAB BLOOD ORDERABLES Final Re sult Performing Organization Address City/[facility] Co de Phone Number [facility] Department [place] [address] * Respiratory pathogen panel Nasopharyngeal (12/03/2024 3:10 PM CDT) [facility] Influenza A RNA Not Detected Not Detected Influenza B RNA Not Detected Not Detected [facility] RSV RNA Not Detected Not Detected [facility] COVID-19 RNA Not Detected Not Detected [facility] Coronavirus 229E RNA Not Detected Not Detected [facility] Coronavirus HKU1 RNA Not Detected Not Detected [facility] Coronavirus NL63 RNA Not Detected Not Detected [facility] Coronavirus OC43 RNA Not Detected Not Detected [facility] Adenovirus DNA Not Detected Not Detected [facility] Metapneumovirus RNA Not Detected Not Detected [facility] Rhinovirus/Enterov irus RNA Not Detected Not Detected [facility] Parainfluenza 1 RNA Not Detected Not Detected [facility] Parainfluenza 2 RNA Not Detected Not Detected [facility] Parainfluenza 3 RNA Not Detected Not Detected [facility] Parainfluenza 4 RNA Not Detected Not Detected [facility] B. pertussis DNA Not Detected Not Detected [facility] B. parapertussis DNA Not Detected Not Detected [facility] C. pneumoniae DNA Not Detected Not Detected [facility] M. pneumoniae DNA Not Detected Not Detected [facility] Nasopharyngeal 12/03/2024 3: 10 PM CDT 12/03/2024 3:27 PM CDT Narrative [facility] - 12/03/2024 4:51 PM CDT Is the Patient experiencing symptoms consistent with COVID?->Yes Surveillance testing for transplant patient?->No Interpretive Data The [employer] FilmArray Respiratory Panel (RP2.1) assay is a multiplexed real-time PCR based nucleic acid test capable of simultaneous qualitative detection and identification of multiple respiratory viral and bacterial nucleic acids, including SARS Coronavirus 2 (the causative agent of COVID-19). The following bacteria, viruses and virus subtypes can be identified using the FilmArray RP2.1 assay: Bordetella pertussis, Bordetella parapertussis, Chlamydia pneumoniae, Mycoplasma pneumoniae, Adenovirus, SARS Coronavirus 2, seasonal coronaviruses (Coronavirus HKU1, Coronavirus NL63, Coronavirus 229E, and Coronavirus OC43), Influenza A, Influenza A subtype H1, Influenza A subtype H3, Influenza A subtype 2009 H1, Influenza B, Metapneumovirus, Parainfluenza 1, Parainfluenza 2, Parainfluenza 3, Parainfluenza 4, RSV, Rhinovirus/Enterovirus. Due to the genetic similarity between human Rhinovirus and Enterovirus, the FilmArray RP2.1 assay cannot reliably differentiate them. Coronavirus OC43 may cross-react with some isolates of Coronavirus HKU1. A dual positive result may be due to cross-reactivity or may indicate a co- infection. The detection and identification of specific viral and bacterial nucleic acids from individuals exhibiting signs and symptoms of a respiratory infection aids in the diagnosis of respiratory infection if used in conjunction with other clinical and epidemiological information. The results of this test should not be used as the sole basis for diagnosis, treatment, or other management decisions. Negative results in the setting of a respiratory illness may be due to infection with pathogens that are not detected by this test. Positive results do not rule out infection/co-infection with other organisms. The agent(s) detected by the FilmArray RP2.1 may not be the definite cause of disease. Additional testing (lab, imaging, etc.) may be necessary when evaluating a patient with possible respiratory tract infection. The FilmArray RP2.1 assay has FDA clearance for testing of [employer]SEKEEPER MANAGER swabs. The performance of additional specimen types has been assessed by the performing laboratory. The performance characteristics of this assay have been determined by [facility] Molecular Infectious Disease Laboratory. Current interpretive data was last revised on 22. Orlando Call MD LAB MICROBIOLOGY - GENERAL OR DERABLES Final Result [facility] [place] [address] * (ABNORMAL) CBC with auto differential (12/03/2024 3:10 PM CDT) WBC 9.07 3.80 - 9.90 K/cumm Hgb 13.0 13.0 - 17.5 g/dL [facility] Hct 40.0 38.9 - 50.3 % [facility] Plt 202 150 - 400 K/cumm [facility] MPV 9.4 9.1 - 12.3 fL [facility] RBC 4.40 4.30 - 5.80 M/cumm [facility] MCV 90.9 81.3 - 96.4 fL [facility] MCH 29.5 27.1 - 33.3 pg [facility] MCHC 32.5 32.3 - 35.7 g/dL [facility] RDW CV 14.3 11.1 - 14.9 % [facility] RDW SD 48.4(H) 35.7 - 48.1 fL [facility] NRBC abs 0.00 0.00 - 0.01 K/cumm [facility] Blood 12/03/2024 3:10 PM CDT 12/03/2024 3:33 PM CDT Orlando Call MD LAB BLOOD ORDERABLES Final Re sult Performing Organization Address [facility] Co de Phone Number [facility] [place] [address] * (ABNORMAL) aPTT (12/03/2024 3:10 PM CDT) aPTT 23(L) 26 - 38 sec Comment: Interpretive Data Heparin therapeutic range: 66.0 - 100.0 seconds. Range based on correlation with therapeutic heparin activity range of 0.3 - 0.7 Units/mL. Current interpretive data was last revised on 2023. Blood 12/03/2024 3:10 PM CDT 12/03/2024 3:28 PM CDT Orlando Call MD LAB BLOOD ORDERABLES Final Re sult Performing Organization Address [facility] de Phone Number [facility] [place] [address] * Protime-INR (12/03/2024 3:10 PM CDT) PT 10.8 10.2 - 13.5 sec INR 0.95 0.90 - 1.20 [facility] Comment: Interpretive data Oral anticoagulant therapeutic ranges: Venous thromboembolism prophylaxis or treatment: 2.0-3.0 CARDIOLOGY Standard range: 2.0-3.0 High-intensity range: 2.5-3.5 Refer to indication-specific guidelines for appropriate target ranges for prosthetic heart valve replacement. Current interpretive data was last revised on 2019. Blood 12/03/2024 3:10 PM CDT 12/03/2024 3:28 PM CDT Orlando Call MD LAB BLOOD ORDERABLES Final Re sult Performing Organization Address [facility]/ZIP Co de Phone Number [facility] [employer] [place] [address] * Type and screen (12/03/2024 3:10 PM CDT) Miryam, indirect Negative ABO Rh O Positive [facility] Blood 12/03/2024 3:10 PM CDT 12/03/2024 3:32 PM CDT Narrative [facility] - 12/03/2024 4:22 PM CDT Has the patient had Daratumumab or Isatuximab in the past 6 months?->Unknown Orlando Call MD LAB BLOOD BANK TEST ORDERABLE S Final Result Performing Organization Address [facility] Co de Phone Number [facility] [employer] [place] [address] * Hepatic function panel (12/03/2024 3:10 PM CDT) Bilirubin, total 0.6 0.1 - 1.2 mg/dL Bilirubin, direct 0.2 0.1 - 0.3 mg/dL [facility] Protein, pl 7.1 6.5 - 8.5 g/dL [facility] Albumin 3.9 3.5 - 5.0 g/dL [facility] Alk phos 103 40 - 130 Units/L [facility] ALT 19 7 - 55 Units/L [facility] AST 21 10 - 50 Units/L [facility] Blood 12/03/2024 3:10 PM CDT 12/03/2024 3:33 PM CDT Orlando Call MD LAB BLOOD ORDERABLES Final Re sult Performing Organization Address City/[facility]/ZIP Co de Phone Number [facility] [place] [address] * Basic metabolic panel (12/03/2024 3:10 PM CDT) [facility] Signature Sodium 141 135 - 145 mmol/L Potassium, pl 4.1 3.3 - 4.9 mmol/L [facility] Chloride 104 97 - 110 mmol/L [facility] CO2 27 22 - 32 mmol/L [facility] Anion gap 10 2 - 15 mmol/L [facility] BUN 20 6 - 25 mg/dL [facility] Creatinine 0.94 0.80 - 1.30 mg/dL [facility] Glucose 126 70 - 199 mg/dL [facility] Comment: Interpretive Data Fasting glucose [...] 2022. Calcium 9.4 8.5 - 10.3 mg/dL [facility] Blood 12/03/2024 3:10 PM CDT 12/03/2024 3:33 PM CDT Orlando Call MD LAB BLOOD ORDERABLES Final Re sult [facility] Department [place] [address] * XR Chest 1 Vw Portable (12/03/2024 2:54 PM CDT) Anatomical Region Laterality Modality Body, Chest N/A Computed Radiogr aphy 12/03/2024 3:05 PM CDT Impressions 12/03/2024 3:05 PM CDT Comparison August 2023. There is chronic change within the right lung with some peripheral reticulation probably sequela of old lung injury or organized pneumonia seen on prior CT urogram May 2024. Aside from this, there is some mildly increased airspace opacities in the right midlung and right upper lobe that may represent a superimposed pneumonia versus subsegmental atelectasis. There are numerous benign calcified pulmonary nodules. Ventricular peritoneal shunt catheter courses of the left hemithorax and the left neck. No pleural effusion. No pulmonary edema. Cardiac mediastinal silhouette is unchanged. There is some apparent lytic change or lytic osseous lesion mimicking abnormality at the left glenoid. This is more pronounced from older studies. Recommend dedicated left shoulder radiographs for further evaluation. Electronically signed by: Ludwin Mcnamara M.D. Narrative 12/03/2024 3:05 PM CDT EXAMINATION: 1 view chest radiograph Procedure Note Ludwin Mcnamara MD - 12/03/2024 EXAMINATION: 1 view chest radiograph IMPRESSION: Comparison August 2023. There is chronic change within the right lung with some peripheral reticulation probably sequela of old lung injury or organized pneumonia seen on prior CT urogram May 2024. Aside from this, there is some mildly increased airspace opacities in the right midlung and right upper lobe that may represent a superimposed pneumonia versus subsegmental atelectasis. There are numerous benign calcified pulmonary nodules. Ventricular peritoneal shunt catheter courses of the left hemithorax and the left neck. No pleural effusion. No pulmonary edema. Cardiac mediastinal silhouette is unchanged. There is some apparent lytic change or lytic osseous lesion mimicking abnormality at the left glenoid. This is more pronounced from older studies. Recommend dedicated left shoulder radiographs for further evaluation. Electronically signed by: Ludwin Mcnamara M.D. Orlando Call MD IMG XR PROCEDURES Final Resul t * Neuro CT Outside Consult (12/03/2024 2:25 PM CDT) Anatomical Region Laterality Modality N/A Computed Tomogra phy 12/03/2024 3:01 PM CDT Impressions 12/03/2024 3:01 PM CDT Unchanged large left anterior and middle cranial fossa arachnoid cyst managed by a left frontal approach ventriculoperitoneal shunt catheter in unchanged position with stable underlying mass effect, rightward midline shift, and ventricular caliber. Electronically signed by: Jordyn Heller M.D. Narrative 12/03/2024 3:01 PM CDT EXAMINATION: RADIOLOGY CONSULTATION ON OUTSIDE IMAGING STUDY STUDY INITIALLY PERFORMED: 12/03/2024 at 0904 hours at [facility]. TYPE OF STUDY: Multiple CT images of the head without contrast are provided at the time of this interpretation. CONTRAST ROUTE: No contrast was administered. The protocol was adequate to address the clinical question. The outside final report was not available at the time of this second opinion interpretation. TYPE OF CONSULTATION: Consult on outside imaging study with images submitted through Outside Image Sharing Service DATE OF CONSULTATION: 12/03/2024 2:58 PM HISTORY: Arachnoid cyst status post ventriculoperitoneal shunt. TECHNIQUE: CT of the head was performed with images acquired from skull base to vertex without intravenous contrast. COMPARISON: Multiple prior head CTs, most recently dated 09/20/2024. FINDINGS: Again seen is a left frontal approach ventriculoperitoneal shunt catheter with tip terminating in the body of the right lateral ventricle. Again seen is a large arachnoid cyst involving the left frontal and middle cranial fossa, not significant changed from prior examination. There is persistent rightward midline shift , also unchanged. Right insula encephalomalacia with associated ex vacuo dilation of the frontal horn of the right lateral ventricle. Overall, the ventricular system is unchanged in size and morphology. Asymmetric periventricular and subcortical white matter hypodensities, right greater than left, likely representing sequela of chronic small vessel ischemic disease. Unchanged lacunar infarct in the left basal ganglia. Severe intracranial atheromatous plaque. There is no acute intracranial hemorrhage. Bilateral lens replacements. Pneumatization of the petrous apices. The visualized portions of the mastoids are normal. Mild paranasal sinus mucosal thickening. No fractures are identified. Intracranial atherosclerotic calcifications. Procedure Note Elieser Heller, Jordyn Oliver MD - 12/03/2024 EXAMINATION: RADIOLOGY CONSULTATION ON OUTSIDE IMAGING STUDY STUDY INITIALLY PERFORMED: 12/03/2024 at 0904 hours at [facility]. TYPE OF STUDY: Multiple CT images of the head without contrast are provided at the time of this interpretation. CONTRAST ROUTE: No contrast was administered. The protocol was adequate to address the clinical question. The outside final report was not available at the time of this second opinion interpretation. TYPE OF CONSULTATION: Consult on outside imaging study with images submitted through Outside Image Sharing Service DATE OF CONSULTATION: 12/03/2024 2:58 PM HISTORY: Arachnoid cyst status post ventriculoperitoneal shunt. TECHNIQUE: CT of the head was performed with images acquired from skull base to vertex without intravenous contrast. COMPARISON: Multiple prior head CTs, most recently dated 09/20/2024. FINDINGS: Again seen is a left frontal approach ventriculoperitoneal shunt catheter with tip terminating in the body of the right lateral ventricle. Again seen is a large arachnoid cyst involving the left frontal and middle cranial fossa, not significant changed from prior examination. There is persistent rightward midline shift , also unchanged. Right insula encephalomalacia with associated ex vacuo dilation of the frontal horn of the right lateral ventricle. Overall, the ventricular system is unchanged in size and morphology. Asymmetric periventricular and subcortical white matter hypodensities, right greater than left, likely representing sequela of chronic small vessel ischemic disease. Unchanged lacunar infarct in the left basal ganglia. Severe intracranial atheromatous plaque. There is no acute intracranial hemorrhage. Bilateral lens replacements. Pneumatization of the petrous apices. The visualized portions of the mastoids are normal. Mild paranasal sinus mucosal thickening. No fractures are identified. Intracranial atherosclerotic calcifications. IMPRESSION: Unchanged large left anterior and middle cranial fossa arachnoid cyst managed by a left frontal approach ventriculoperitoneal shunt catheter in unchanged position with stable underlying mass effect, rightward midline shift, and ventricular caliber. Electronically signed by: Jordyn Heller M.D. Keyanna Abraham MD IMG CT PROCEDURES Final Resu lt * XR Outside Reference (12/03/2024 1:26 PM CDT) Impressions [facility] - 12/03/2024 1:26 PM CDT These images are for Reference purposes only and have not been reviewed by [facility] Radiology. There will be no report generated by a [facility] Radiologist. Narrative RAD_PACS_[facility] - 12/03/2024 1:26 PM CDT EXAMINATION: Images For Reference Purposes Only Orlando Call MD IMG XR PROCEDURES Final Resul t Performing Organization Address [facility] Co de Phone Number [email or web address] * Valproic acid level, total (12/03/2024 1:24 PM CDT) Valproic Acid 61.0 50.0 - 100.0 mcg/mL Comment: Interpretive Data Therapeutic or toxic effects of anticonvulsant drugs may occur at different concentrations in different patients and the correlation between dose and clinical effect must be evaluated individually. Current interpretative data was last revised on 13. Blood 12/03/2024 1:24 PM CDT 12/03/2024 1:43 PM CDT Keyanna Abraham MD LAB BLOOD ORDERABLES Final R esult Performing Organization Address [facility] de Phone Number [facility] Department [place] [address] * ECG 12-LEAD (12/03/2024 1:19 PM CDT) Narrative [facility] - 12/03/2024 1:19 PM CDT Deshawn Valente MD 12/03/2024 1:19 PM ECG 12 lead Date/Time: 12/03/2024 1:19 PM Performed by: Deshawn Valente MD Authorized by: Deshawn Valente MD Comments: Normal sinus rhythm, rate of 78, normal axis, normal intervals, no convincing evidence of ischemia. us Deshawn Valente MD ECG ORDERABLES Final Res ult Performing Organization Address [facility] Co de Phone Number [facility] * POCT glucose (12/03/2024 1:17 PM CDT) Glucose, POC 131 70 - 199 mg/dL Blood 12/03/2024 1:17 PM CDT 12/03/2024 1:17 PM CDT Deshawn Valente MD LAB POCT ORDERABLES - DEV ICE Final Result [facility] Department [place] [address] * eGFR (11/30/2024 12:45 PM CDT) eGFR [...] CDT 11/30/2024 2:23 PM CDT Sadie Puri NP LAB BLOOD ORDERABLES Final Re sult [facility] [address] [facility] [place] [address] * Differential, auto (11/30/2024 12:45 PM CDT) Neutrophil abs 4.56 1.50 - 6.50 K/cumm Imm gran abs 0.03 0.00 - 0.10 K/cumm [facility] Lymphocyte abs 2.00 0.80 - 3.30 K/cumm [facility] Monocyte abs 0.66 0.20 - 0.80 K/cumm [facility] Eosinophil abs 0.31 0.00 - 0.50 K/cumm [facility] Basophil abs 0.05 0.00 - 0.10 K/cumm [facility] Neutrophil pct 59.8 % [facility] Comment: Interpretive Data Percent cell count reference ranges are not reported, since discordance with absolute values may lead to misinterpretation of CBC data. Current Interpretive Data was last revised on 2017. Imm gran pct 0.4 % [facility] Comment: Interpretive Data Percent cell count reference ranges are not reported, since discordance with absolute values may lead to misinterpretation of CBC data. Current Interpretive Data was last revised on 2017. Lymphocyte pct 26.3 % [facility] Comment: Interpretive Data Percent cell count reference ranges are not reported, since discordance with absolute values may lead to misinterpretation of CBC data. Current Interpretive Data was last revised on 2017. Monocyte pct 8.7 % [facility] Comment: Interpretive Data Percent cell count reference ranges are not reported, since discordance with absolute values may lead to misinterpretation of CBC data. Current Interpretive Data was last revised on 2017. Eosinophil pct 4.1 % [facility] Comment: Interpretive Data Percent cell count reference ranges are not reported, since discordance with absolute values may lead to misinterpretation of CBC data. Current Interpretive Data was last revised on 2017. Basophil pct 0.7 % [facility] Comment: Interpretive Data Percent cell count reference ranges are not reported, since discordance with absolute values may lead to misinterpretation of CBC data. Current Interpretive Data was last revised on 2017. Blood 11/30/2024 12:4 5 PM CDT 11/30/2024 2:23 PM CDT us Sadie Puri NP LAB BLOOD ORDERABLES Final Re sult [facility] [address] [facility] [place] [address] * PSA screen (11/30/2024 12:45 PM CDT) [...] 5 PM CDT 11/30/2024 2:23 PM CDT [employer] HOUSEKEEPER MANAGER LAB BLOOD ORDERABLES Final Re sult Performing Organization Address City/[facility]/ZIP Co de Phone Number [address] [place] [address] * Iron profile w/ IBC (11/30/2024 12:45 PM CDT) Pathologist [facility] Iron 83 50 - 150 mcg/dL TIBC 365 250 - 400 mcg/dL [facility] Transferrin saturation 23 20 - 50 % [facility] Blood 11/30/2024 12:4 5 PM CDT 11/30/2024 2:23 PM CDT Sadie Khushi HOUSEKEEPER MANAGER LAB BLOOD ORDERABLES Final Re sult Performing Organization Address City/[facility]/ZIP Co de Phone Number [address] [place] [employer] [place] [address] * (ABNORMAL) CBC with auto differential (11/30/2024 12:45 PM CDT) Pathologist [facility] WBC 7.61 3.80 - 9.90 K/cumm Hgb 14.5 13.0 - 17.5 g/dL [facility] Hct 44.9 38.9 - 50.3 % [facility] Plt 218 150 - 400 K/cumm [facility] MPV 9.1 9.1 - 12.3 fL [facility] RBC 4.91 4.30 - 5.80 M/cumm [facility] MCV 91.4 81.3 - 96.4 fL [facility] MCH 29.5 27.1 - 33.3 pg [facility] MCHC 32.3 32.3 - 35.7 g/dL [facility] RDW CV 14.5 11.1 - 14.9 % [facility] RDW SD 48.9(H) 35.7 - 48.1 fL [facility] NRBC abs 0.00 0.00 - 0.01 K/cumm [facility] Blood 11/30/2024 12:4 5 PM CDT 11/30/2024 2:23 PM CDT Sadie Puri HOUSEKEEPER MANAGER LAB BLOOD ORDERABLES Final Re sult Performing Organization Address City/[facility]/ZIP Co de Phone Number [address] [place] [employer] [place] [address] * Vitamin D 25 hydroxy (11/30/2024 12:45 PM CDT) Pathologist [facility] Vitamin D 25-OH 49.0 30.0 - 80.0 ng/mL Blood 11/30/2024 12:4 5 PM CDT 11/30/2024 2:23 PM CDT Sadie Puri HOUSEKEEPER MANAGER LAB BLOOD ORDERABLES Final Re sult Performing Organization Address [facility] Co de Phone Number [address] [address] * (ABNORMAL) Hemoglobin A1c (11/30/2024 12:45 PM CDT) Pathologist [facility] Hgb A1C 8.4(H) 4.0 - 5.6 % Estimated Average Glucose 194 mg/dL [facility] Comment: The ADA recommends reporting an estimated Average Glucose (eAG) with all Hemoglobin A1c results using the equation derived from a study of 507 normal and diabetic adults. Minority populations were underrepresented and children were not included. (Diabetes Care 31:3392-5583, 2008). The eAG is not equivalent to a fasting glucose. Blood 11/30/2024 12:4 5 PM CDT 11/30/2024 2:23 PM CDT Sadie Puri HOUSEKEEPER MANAGER LAB BLOOD ORDERABLES Final Re sult Performing Organization Address City/[facility]/ZIP Co de Phone Number [facility] [address] [place] [employer] [place] [address] * Ferritin (11/30/2024 12:45 PM CDT) Ferritin 233 30 - 400 ng/mL Blood 11/30/2024 12:4 5 PM CDT 11/30/2024 2:23 PM CDT Sadie Puri HOUSEKEEPER MANAGER LAB BLOOD ORDERABLES Final Re sult Performing Organization Address [facility] de Phone Number [facility] [place] [address] * (ABNORMAL) Lipid panel (11/30/2024 12:45 PM [...] revised on 2017. Triglycerides 294(H) <=149 mg/dL [facility] Comment: Interpretive Data Ages < [...] on 2017. HDL 38(L) >=40 mg/dL [facility] Comment: Interpretive Data Ages [...] revised on 2023. Non-HDL Cholesterol 184 mg/dL [facility] Comment: Interpretive Data Ages [...] last revised on 2017. Chol/HDL ratio 6 [facility] Blood 11/30/2024 12:4 5 PM CDT 11/30/2024 2:23 PM CDT Narrative [facility] - 11/30/2024 3:08 PM CDT Has the patient been fasting for 8 hours or more?->Yes Sadie Puri NP LAB BLOOD ORDERABLES Final Re sult [facility] [address] [facility] Department [place] [address] * Comprehensive metabolic panel (11/30/2024 12:45 PM CDT) Sodium 139 135 - 145 mmol/L Potassium, pl 4.5 3.3 - 4.9 mmol/L [facility] Chloride 101 97 - 110 mmol/L [facility] CO2 27 22 - 32 mmol/L [facility] Anion gap 11 2 - 15 mmol/L [facility] BUN 20 6 - 25 mg/dL [facility] Creatinine 1.01 0.80 - 1.30 mg/dL [facility] Glucose 141 70 - 199 mg/dL [facility] Comment: Interpretive Data Fasting glucose [...] classification and Diagnosis of Diabetes Diabetes Care 202; 46: S19-S40. Current interpretive data was last revised 2022. Calcium 9.8 8.5 - 10.3 mg/dL [facility] Bilirubin, total 0.7 0.1 - 1.2 mg/dL [facility] Protein, pl 7.3 6.5 - 8.5 g/dL [facility] Albumin 4.3 3.5 - 5.0 g/dL [facility] Alk phos 111 40 - 130 Units/L [facility] ALT 17 7 - 55 Units/L [facility] AST 22 10 - 50 Units/L [facility] Blood 11/30/2024 12:4 5 PM CDT 11/30/2024 2:23 PM CDT Sadie Puri HOUSEKEEPER MANAGER LAB BLOOD ORDERABLES Final Re sult Performing Organization Address City/[facility] Co de Phone Number [facility] [address] [facility] Department [place] [address] * (ABNORMAL) Albumin Creatinine Ratio, Urine (01/26/2023 3:07 PM CDT) Albumin Ur 280.8 mg/L Comment: Interpretive Data No reference range established. Current interpretive data was last revised 2018. Creatinine Ur 77.0 mg/dL [facility] Comment: Interpretive Data No reference range established. Current interpretive data was last revised 2018. Albumin Creatinine Ratio, Ur 365(H) 1 - 29 mg/g [facility] Urine 01/26/2023 3:07 PM CDT 01/26/2023 3:07 PM CDT Result [facility] Nidia Burgos HOUSEKEEPER MANAGER LAB URINE ORDERABLES Katalina l Result Performing Organization Address [facility] Co de Phone Number [facility] [address] Department [place] [address] * CT Abdomen Pelvis W Contrast (02/16/2022 [...] Findings Committee. J Am David Radiol. 2017 Nov;14(8):4386-2910. THIS IS AN ELECTRONICALLY VERIFIED FINAL REPORT 02/16/2022 6:14 PM - Electronically signed by Robbin Prince M.D. MJ: STANLEY Report ID: [id number] Reading Location: [id number] Procedure Note Robbin Prince MD - 02/16/2022 [...] Findings Committee. J Am David Radiol. 2017 Nov;14(8):0447-7092. THIS IS AN ELECTRONICALLY VERIFIED FINAL REPORT 02/16/2022 6:14 PM - Electronically signed by Robbin Prince M.D. MJ: STANLEY Report ID: [id number] Reading Location: [place] [address] Ruthie Monroe Yumiko HOUSEKEEPER MANAGER IMG CT PROCEDURES Katalina l Result from Last 3 Months or Most Recently Relevant to Health Maintenance Insurance MEDICARE [employer] MEDICARE [facility] Address: [address] [address] [place] [address] [employer] Advance Directives For more information, please contact: [phone] * LIMITED - No CPR (Latest Code Status on File) Date Activated Date Inactivated Comments 12/05/2024 2:26 PM 12/26/2024 11:22 PM Question Answer Comments Provide aggressive medical m anagement before a full cardiopulmonary arrest occurs. Use antibiotics, IV Fluids, and medical treatment unless specifically selected below: No intubationNo cardioversion * Full Code Date Activated Date Inactivated Comments 12/04/2024 4:49 AM 12/05/2024 2:26 PM * Full Code Date Activated Date Inactivated Comments 09/03/2023 4:14 AM 09/06/2023 7:22 PM * Full Code Date Activated Date Inactivated Comments 08/31/2023 5:38 PM 09/03/2023 2:37 AM * Full Code Date Activated Date Inactivated Comments 08/18/2023 4:09 PM 08/24/2023 7:22 PM Healthcare Agents on File Name Relationship Healthcare Agent Relationship Communication Anette Soto Spouse Health Care Agent [email or web address] Care Teams Four Slide Operator Relationship Specialty Start Date End Date Sadie Puri NP [address] [facility] [address] [place] [address] PCP - General Internal Medicine 11/30/24 Yamilka Matos MD [address] [facility] [address] [place] [address] Consulting Physician Nephrology 11/30/24 Gloria Canales NP [address] [place] [address] Nurse Practitioner Neurosurgery 11/30/24 Scarlet Cardenas MD [address] [place] [address] [place] [address] Consulting Physician Urology 11/30/24
--- OUTSIDE RECORDS SUMMARY | 2024-12-31 07:41 | XMS_ITS | Encounter Summary ---
Author Organization [facility] Address [address] [place] [address] Care Team Providers Care Hydraulic Engineer Name Role Phone Kimberly Navarrete MD Primary Care Provider Reason for Visit * Reason Onset Date Comments General 11/03/2018 c/b from PCP Encounter Details Date Type Department Care Team (Late st Contact Info) Description 11/03/2018 Telephone [facility] General Internal Medicine [address] [facility] [address] [place] [address] Kimberly Navarrete MD [address] [facility] [address] [place] [address] General (c/b from PCP) Social History Tobacco Use Types Packs/Day Years Used Date Smoking Tobacco: Former Pipe Smokeless Tobacco: Never Comments:quit 1979 Alcohol Use Standard Drinks/Week Comments No 0 (1 standard drink = 0.6 oz pur e alcohol) Sex and Gender Information Value Date Recorded Sex Assigned at Male 03/04/2022 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 CB# [phone] Routed to provider for further review documented in this encounter Plan of Treatment Not on file documented as of this encounter Visit Diagnoses Not on filedocumented in this encounter Additional Health Concerns Infection Onset Date Last Indicated Resolved Time COVID-19 Under Investigation 11/20/2023 11/20/2023 11/20/2023 10:51 PM CDT COVID-19 Confirmed 11/20/2023 11/20/2023 4:33 AM CDT documented as of this encounter Care Teams Hydraulic Engineer Relationship Specialty Start Date End Date Kimberly Navarrete MD PCP - General 07/17/17 documented as of this encounter
[2024-12-31] MEDS: SODIUM CHLORIDE 0.9% IV 1,000 ML 999 ML IV CONT (07:49)
[2024-12-31] MEDS: ACETAMINOPHEN 650 MG SUPPOSITORY RECTAL (07:49)
[2024-12-31 07:50] LABS: Hematocrit 38.9 % (42.0-52.0); Hemoglobin 11.9 g/dL (14.0-18.0); Immature Granulocyte Percent A 0.6 % (0-0.5); Lymphocytes Absolute Auto 1.20 K/mm3 (0.9-3.2); Mean Corpuscular HGB Conc 30.6 g/dl (32-36); Mean Corpuscular Hemoglobin 29.2 pg (26-34); Mean Corpuscular Volume 95.3 fl (80-100); Nucleated Red Blood Cells Absolute Auto 0.000 K/mm3 (0.0-0.012); Nucleated Red Blood Cells Perc 0.0 % (0.0-0.2); Platelet Count Result 324 k/mm3 (150-375); Red Blood Count 4.08 M/mm3 (4.6-6.20); White Blood Count 16.9 K/mm3 (4.5-10.0)
[2024-12-31] MEDS: Please enter patient height and weight for medication dosing 1 EACH XX (07:50)
[2024-12-31] MEDS: CEFEPIME 2 GM in SODIUM CHLORIDE 0.9% IV 50 ML 100 ML IVPB (07:52)
[2024-12-31 08:05] LABS: INR 1.3; Prothrombin Time 15.6 Seconds (11.1-14.7)
[2024-12-31 08:06] LABS: Alanine Aminotransferase 26 U/L (6-50); Albumin Level 3.5 g/dL (3.5-5.1); Alkaline Phosphatase 86 U/L (38-126); Anion Gap 13 mmol/L (4-12); Aspartate Amino Transferase 41 U/L (17-59); Bilirubin,Total 0.8 mg/dL (0.2-1.3); Blood Urea Nitrogen 100 mg/dL (9-20); CRP 4.6 mg/dL (<1.0); Calcium 9.3 mg/dL (8.4-10.2); Carbon Dioxide 21 mmol/L (22-30); Chloride 113 mmol/L (98-107); Estimated CRCL calculation 15 ml/min; Estimated Glomerular Filt Rate 18; Glucose 201 mg/dL (65-110); Lipase 93 U/L (23-300); Partial Thromboplastin Time 24.8 Seconds (22.3-36.8); Potassium 5.0 mmol/L (3.4-5.0); Sodium 147 mmol/L (137-145); Total Protein 7.4 g/dL (6.3-8.2)
[2024-12-31 08:14] LABS: NT Pro B Type Natriuretic Pept 335 pg/mL (19.9-100); Troponin I 0.027 ng/mL (0.000-0.034)
[2024-12-31 08:20] LABS: Creatine Kinase 1164 U/L (55-170)
--- NOTE | 2024-12-31 08:23 | PC.NURSE ---
pt had 2 IVs that were not placed by EMS upon arrival, the facility said he came to that facility with them. one IV was marked as placed on 12/19. IVs were removed at this time. WNL
[2024-12-31 08:27] LABS: Influenza A QL RT-PCR Negative (Negative); Influenza B QL RT-PCR Negative (Negative); RSV RNA, RT-PCR Negative (Negative); SARS-CoV-2 RNA PCR Negative (Negative)
--- NOTE | 2024-12-31 08:29 | PC.NURSE ---
EMS initiated 1L of NS, bolus was continued upon arrival to ED, pt was given the entire 1L of NS
--- NOTE | 2024-12-31 08:42 | PCRCNOTE ---
delay in obtaining abg due to patient not in room when RT arrived. Pt appears to be in CT. RT will obtain when patient arrives to his room
[2024-12-31] MEDS: SODIUM CHLORIDE 0.9% IV 500 ML 999 ML IV CONT (08:52)
[2024-12-31 08:57] LABS: Thyroid Stimulating Hormone 1.760 uIU/mL (0.465-4.680)
[2024-12-31 09:01] LABS: Add Urine Microscopic? YES; Appearance Urine Turbid (Clear); Glucose Urine UA Negative (Negative); Leukocyte Esterase Ur 2+ LEU/UL (Negative); Need Manual Microscopic Need Manual; Nitrate Urine Positive (Negative); Specific Grav Ur 1.024 (1.001-1.035)
[2024-12-31 09:03] LABS: Alveolar/Arterial O2 Gradient 208.0 mmHg; Fractional Inspired Oxygen 44 %; HCO3 ABG 18.8 mEq/l (22.0-26.0); Oxygen Content ABG 16.6 %vol (16.0-22.0); Oxygen Saturation ABG 95.9 % (95.0-100.0); PCO2 ABG 27.1 mmHg (35.0-45.0); PO2 ABG 74.8 mmHg (80.0-100.0); PO2 FiO2 Ratio Arterial Blood 1.70 %
[2024-12-31 09:09] LABS: Liters per Minute 6.0 LPM; Modified Allen's Test Pass; Site Drawn RIGHT RADIAL
--- NOTE | 2024-12-31 09:19 | PC.NURSE ---
per EDP Dr. Montilla, she spoke to family and family says the pt is a DNR/DNI. the pt would not want compressions or to be intubated. no PICC line at this time. EDP wants vasopressors to be given through peripheral IV until family can come and decide what they would like their next step to be
[2024-12-31 09:48] LABS: Anion Gap 11 mmol/L (4-12); Blood Urea Nitrogen 98 mg/dL (9-20); Calcium 8.7 mg/dL (8.4-10.2); Carbon Dioxide 22 mmol/L (22-30); Chloride 115 mmol/L (98-107); Estimated CRCL calculation 16 ml/min; Estimated Glomerular Filt Rate 20; Glucose 208 mg/dL (65-110); Potassium 5.0 mmol/L (3.4-5.0); Sodium 148 mmol/L (137-145)
[2024-12-31] MEDS: NOREPINEPHRINE 8 MG/D5W 250 ML 8 MG/250 ML BAG 9.38 MG IV CONT (10:03)
--- NOTE | 2024-12-31 10:03 | PC.NURSE ---
per EDP, norepinephrine is to run through a peripheral IV. initiated at this time
[2024-12-31 10:39] LABS: MRSA (PCR) NOT DETECTED (NOT DETECTE)
[2024-12-31] MEDS: SODIUM CHLORIDE 0.9% IV 1,000 ML 125 ML IV CONT (10:49)
[2024-12-31] MEDS: VANCOMYCIN 1,250 MG/NS 250 ML 1,250 MG/250 ML BAG 166.67 MG IVPB (10:51)
--- NOTE | 2024-12-31 11:38 | WNDPHOTO ---
PHOTO ONLY - See Nursing Notes and/ or assessments for documentation.
--- NOTE | 2024-12-31 11:40 | WNDPHOTO ---
PHOTO ONLY - See Nursing Notes and/ or assessments for documentation.
--- NOTE | 2024-12-31 11:51 | ADMGEN ---
This patient, Jesus Soto, was admitted to Intensive Care Unit-7. Patient/family oriented to hospital policies and general routines including ID bracelet, bed and alarms, visiting hours, pain management, procedures, bathroom and other care routines, personal items, smoking policy, room service/diet, and visiting hours. Information on how to activate the Rapid Response Team has been discussed. Patient/Family are encouraged to report perceived risks to care and to ask questions if they do not understand what they are told or what they should do.
--- NOTE | 2024-12-31 12:14 | WPDCNINT ---
Assessment and Plan Assessment and plan (1) Septic shock: Code(s): A41.9 - Sepsis, unspecified organism; R65.21 - Severe sepsis with septic shock Status: Acute Assessment and Plan: 12/31: Patient presented from [facility] with hypotension with systolics in the 50s, fevers of 102, hypoxia with O2 sats in the 80s on 2 L nasal cannula that he uses at the facility, altered mental status -found to have elevated WBC count of 16.9, -lactic acid of 2.3, repeat lactic 2.1 -patient was given 2.5 L IV fluid bolus -will continue maintenance IV fluids at 100 mL/hour of LR -started on azithromycin cefepime and vancomycin (12/31) -likely etiology pneumonia and UTI -12/31: Blood cultures obtained -12/31: Urine cultures obtained -on Levophed through peripheral access, -discussed with patient's Anette, who stated that she is waiting for her son to come from [facility] after which she will make the patient comfort measures. Currently DNR/DNI (2) UTI (urinary tract infection) due to urinary indwelling Schuster catheter: Code(s): T83.511A - Infection and inflammatory reaction due to indwelling urethral catheter, initial encounter; N39.0 - Urinary tract infection, site not specified Status: Acute Assessment and Plan: Continue antibiotics as above -urine cultures have been obtained (3) Pneumonia: Code(s): J18.9 - Pneumonia, unspecified organism Status: Acute Assessment and Plan: 12/31/2024: CT chest abdomen and pelvis IMPRESSION: 1. Pneumonia, most advanced the right lower lobe with additional smaller regions in the dependent right middle and upper lobes. 2. Prominent wall thickening of the decompressed bladder with mild surrounding stranding concerning for cystitis which could be acute or chronic. Correlate with urinalysis. 3. Likely sludge versus gallstones within the dependent aspect of the otherwise normal-appearing gallbladder. 4. Small amount of ascites in the deep pelvis along side the tip of a ventriculoperitoneal shunt catheter. (4) Diabetes: Code(s): E11.9 - Type 2 diabetes mellitus without complications Status: Acute Assessment and Plan: Accu-Cheks and sliding scale insert (5) Altered mental status, unspecified: Code(s): R41.82 - Altered mental status, unspecified Status: Acute Assessment and Plan: Altered mental status likely related to sepsis/septic shock. 12/31/2024: CT scan of the brain without contrast IMPRESSION: 1. No acute intracranial process. 2. Large likely arachnoid cyst overlying the anterior left frontal and temporal lobes resulting in significant but stable mass effect with 1.4 cm right to left midline shift without significant change since prior study. 3. Unchanged left frontal ventricular drainage catheter which extends across the arachnoid cyst, the anterior horn of the left lateral ventricle with distal tip positioned along the lateral wall of the right lateral ventricle. Ventricles are unchanged since the prior study. 4. Unchanged region of encephalomalacia in the right basal ganglia, frontal lobe and insula consistent with sequela of chronic infarct. (6) Acute renal failure: Code(s): N17.9 - Acute kidney failure, unspecified Status: Acute Assessment and Plan: Patient presented with acute kidney injury with a BUN /creatinine of 100/3.34. (baseline creatinine in in November 2024 was 0.94) -patient received 2.5 L IV fluid bolus -continue maintenance IV fluids -will monitor urine output, renal function electrolyte Plan DVT prophylaxis: Heparin subQ Stress ulcer prophylaxis: Famotidine Nutrition: Will hold tube feeds for now Code Status: DNR/DNI Critical Care Time Spent: 47 minutes Discussed with patient's Anette, who is clearly states that patient is a DNR/DNI. Discussed with patient's condition plan of care. She is waiting for his son to come from [facility] after which she stated they will be transitioning him to comfort measures. I answered all her questions Due to a high probability of clinically significant, life threatening deterioration, the patient required my highest level of preparedness to intervene emergently and I personally spent this critical care time directly and personally managing the patient. This critical care time included obtaining a history; examining the patient; pulse oximetry; ordering and review of studies; arranging urgent treatment with development of a management plan; evaluation of patient's response to treatment; frequent reassessment; and discussions with other providers. It was exclusive of separately billable procedures and treating other patients and teaching time. Please see Assessment and Plan section and the rest of the note for further information on patient assessment and treatment This dictation may have been done utilizing a voice recognition system. Attempts have been made to correct errors. However, there may be uncorrected grammatical, spelling, and recognitions errors present. 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 History of aspiration pneumonia, arachnoid cyst, diabetes, was at [facility] in November 2024, was transferred to [facility] approximately 10 days ago, was transferred to [facility] on 12/31/2024 with complains of fevers 102 F, blood pressures of 50/20, altered mental status, hypoxia with O2 sats in the 80s 2 L nasal cannula. EMS arrived and started on IV fluid bolus. Blood sugars are 207. Patient was given 2.5 L IV fluid bolus, started on Levophed via peripheral access. Patient does have an indwelling Schuster catheter. ER physician discussed with patient's , Anette Soto, who stated that the patient has been DNR/DNI. Patient started on cefepime and vancomycin and transferred to the ICU for further management Patient seen and examined upon arrival to the ICU. Patient's spouse Anette is at bedside who reiterated that the patient is a DNR/DNI. She is waiting for her son is currently in [facility] and is traveling back, once he gets back they will be making the patient comfort measures. She wants is to continue everything until the son arrives. Patient is nonverbal, does not open his eyes, does not follow simple commands. Francia upper and lower extremity, patient has a PEG tube. Currently on Levophed at 3 mcg/hr, currently on Airvo 45 L flow rate and 60% FiO2 O2 sats have been adequate. Patient has a Schuster cath Review of Systems Review of Systems: ROS unobtainable: Yes unobtainable due to medical condition and unobtainable due to mental status PMFSH Past Medical History Medical History (Updated 12/31/24 @ 12:46 by Karlo Zimmerman MD) Uses feeding tube Indwelling Schuster catheter present Essential (primary) hypertension Epilepsy, unspecified, not intractable, without status epilepticus Major depressive disorder, single episode, moderate Hyperlipidemia, unspecified Type 2 diabetes mellitus with diabetic chronic kidney disease Other dysphagia Palpitations Benign prostatic hyperplasia without lower urinary tract symptoms Chronic kidney disease, stage 2 (mild) Acute kidney failure, unspecified Other cerebral infarction due to occlusion or stenosis of small artery Dietary counseling and surveillance Atelectasis Acute respiratory failure, unspecified whether with hypoxia or hypercapnia Constipation, unspecified Aspiration pneumonia Obstructive and reflux uropathy, unspecified Altered mental status, unspecified Arachnoid cyst Diabetes Transient ischemic attack (TIA) Surgical History Surgical History BAR PORTER (ventriculoperitoneal) shunt status Social History Social History (Updated 12/31/24 @ 07:28 by Alexandra Montilla MD) Social History: Years smoked: 4 Smoking status: Former smoker Tobacco type: pipe Second hand tobacco smoke exposure: No Alcohol intake: former Drinks per week: 1 Substance use: never Substance use type: does not use Living arrangements: snf Additional living arrangements comments: ever care of [place] since 12/26/2024 Spiritual care concerns: No ([place]) Meds Home Medications and Allergies Home Medications ?Medication ?Instructions ?Recorded ?Confirmed ?Type Centrum Silver Men 1 tab-cap PO DAILY 12/12/19 12/31/24 History acetaminophen 325 mg tablet 325 mg PO Q6H PRN Pain 12/12/19 12/31/24 History atorvastatin 40 mg tablet 40 mg PO DAILY 12/12/19 12/31/24 History clopidogrel 75 mg tablet 75 mg PO DAILY 12/12/19 12/31/24 History empagliflozin 10 mg tablet 25 mg PO DAILY 12/12/19 12/31/24 History (Jardiance) Held on 01/01/22. Instructions: Resume on 01/05/22. until you have discussed with your PCp on what he wants him to do finasteride 5 mg tablet 5 mg PO DAILY 12/12/19 12/31/24 History docusate sodium 100 mg tablet 100 mg PO 2XW 06/16/21 12/31/24 History lisinopril 10 mg tablet 10 mg PO DAILY 12/31/21 12/31/24 History ondansetron 4 mg disintegrating 4 mg PO Q8H PRN nausea and 01/01/22 12/31/24 Rx tablet vomiting #14 tabs guaifenesin 600 mg tablet, 600 mg PO BID PRN congestion 7 07/03/24 12/31/24 Rx extended release 12 hr (Mucinex) days #14 tabs aspirin 81 mg capsule 81 mg PO DAILY 12/31/24 12/31/24 History doxazosin 1 mg tablet (Cardura) 1 mg PO DAILY 12/31/24 12/31/24 History famotidine 20 mg tablet 20 mg PO BID 12/31/24 12/31/24 History insulin lispro 100 unit/mL 1 sliding scale dose subcut 12/31/24 12/31/24 History subcutaneous pen (Humalog KwikPen USEASDIRECTD (U-100) Insulin) polyethylene glycol 3350 17 17 g PO DAILY 12/31/24 12/31/24 History gram/dose oral powder (Miralax) risperidone 0.25 mg tablet 0.25 mg PO BID 12/31/24 12/31/24 History valproic acid (as sodium salt) 250 500 mg PO Q12H 12/31/24 12/31/24 History mg/5 mL oral solution Allergies Allergy/AdvReac Type Severity Reaction Status Date / Time nitrofurantoin Allergy Intermediate Nausea and Verified 12/31/24 11:52 Vomiting sulfamethoxazole Allergy Intermediate Nausea and Verified 12/31/24 11:52 Vomiting Vital Signs Vital Signs - 24 hr 12/31/24 07:16 12/31/24 07:21 12/31/24 07:30 Temperature 100.8 F H Pulse Rate 108 H 102 H 110 H Respiratory Rate 28 H 47 H Blood Pressure 81/42 L Pulse Oximetry 87 L 91 Oxygen Delivery Room Air Oxygen Flow Rate Fraction of Inspired Oxygen 12/31/24 07:30 12/31/24 07:33 12/31/24 07:42 Temperature Pulse Rate 96 96 92 Respiratory Rate 41 H 35 H 38 H Blood Pressure 59/37 L 55/43 L Pulse Oximetry 94 Oxygen Delivery Oxygen Flow Rate Fraction of Inspired Oxygen 12/31/24 07:45 12/31/24 07:46 12/31/24 08:00 Temperature Pulse Rate 90 90 89 Respiratory Rate 14 24 H 27 H Blood Pressure 76/41 L 86/42 L Pulse Oximetry 95 94 92 Oxygen Delivery Oxygen Flow Rate Fraction of Inspired Oxygen 12/31/24 08:01 12/31/24 08:02 12/31/24 08:07 Temperature 96.1 F L Pulse Rate 90 92 101 H Respiratory Rate 28 H 20 19 Blood Pressure 106/47 L 167/75 H Pulse Oximetry 92 92 91 Oxygen Delivery Oxygen Flow Rate Fraction of Inspired Oxygen 12/31/24 08:12 12/31/24 08:15 12/31/24 08:18 Temperature 98.5 F 99.0 F Pulse Rate 96 96 Respiratory Rate 25 H 37 H Blood Pressure 123/81 Pulse Oximetry 87 L 96 94 Oxygen Delivery Room Air Oxygen Flow Rate Fraction of Inspired Oxygen 12/31/24 08:19 12/31/24 08:21 12/31/24 08:22 Temperature 99.3 F 99.1 F Pulse Rate 93 Respiratory Rate 35 H Blood Pressure 109/34 L Pulse Oximetry 92 92 Oxygen Delivery Nasal Cannula Oxygen Flow Rate 3 Fraction of Inspired Oxygen 12/31/24 08:22 12/31/24 08:22 12/31/24 08:30 Temperature 99.1 F 99.3 F Pulse Rate 93 93 96 Respiratory Rate 30 H 27 H Blood Pressure Pulse Oximetry 92 93 Oxygen Delivery Oxygen Flow Rate Fraction of Inspired Oxygen 12/31/24 08:53 12/31/24 08:58 12/31/24 08:59 Temperature 99.6 F 99.6 F Pulse Rate 107 H 95 Respiratory Rate 31 H 30 H Blood Pressure 86/57 L 93/26 L Pulse Oximetry 92 89 L 92 Oxygen Delivery Nasal Cannula Oxygen Flow Rate 6 Fraction of Inspired Oxygen 12/31/24 09:00 12/31/24 09:02 12/31/24 09:05 Temperature 99.6 F 99.6 F Pulse Rate 94 94 Respiratory Rate 28 H 27 H Blood Pressure 132/94 H 97/55 L Pulse Oximetry 91 89 L 94 Oxygen Delivery Non-Rebreather Mask Oxygen Flow Rate 15 Fraction of Inspired Oxygen 12/31/24 09:12 12/31/24 09:15 12/31/24 09:16 Temperature 99.2 F 99.2 F 99.3 F Pulse Rate 93 94 94 Respiratory Rate 27 H 28 H 27 H Blood Pressure 102/70 102/70 Pulse Oximetry 94 91 93 Oxygen Delivery Oxygen Flow Rate Fraction of Inspired Oxygen 12/31/24 09:25 12/31/24 09:31 12/31/24 09:32 Temperature 99.4 F 99.5 F Pulse Rate 97 105 H Respiratory Rate 25 H 27 H Blood Pressure 100/58 L Pulse Oximetry 91 93 95 Oxygen Delivery High Flow Therapy with Na Oxygen Flow Rate 45 Fraction of Inspired Oxygen 70 12/31/24 09:36 12/31/24 09:45 12/31/24 09:46 Temperature 99.3 F 99.4 F 99.4 F Pulse Rate 107 H 92 94 Respiratory Rate 31 H 25 H 29 H Blood Pressure 149/87 H 78/54 L Pulse Oximetry 96 Oxygen Delivery Oxygen Flow Rate Fraction of Inspired Oxygen 12/31/24 09:51 12/31/24 09:55 12/31/24 09:56 Temperature 99.5 F 99.6 F 99.1 F Pulse Rate 91 107 H 103 H Respiratory Rate 29 H 25 H 32 H Blood Pressure 71/57 L 93/41 L 145/62 H Pulse Oximetry 96 97 Oxygen Delivery Oxygen Flow Rate Fraction of Inspired Oxygen 12/31/24 09:57 12/31/24 09:59 12/31/24 10:00 Temperature 99.3 F 99.5 F 99.5 F Pulse Rate 104 H 97 93 Respiratory Rate 36 H 20 29 H Blood Pressure 136/72 Pulse Oximetry 96 96 95 Oxygen Delivery Oxygen Flow Rate Fraction of Inspired Oxygen 12/31/24 10:02 12/31/24 10:02 12/31/24 10:03 Temperature 99.5 F 99.5 F Pulse Rate 97 99 94 Respiratory Rate 32 H 33 H Blood Pressure 69/26 L 69/26 L 69/26 L Pulse Oximetry 92 92 Oxygen Delivery Oxygen Flow Rate Fraction of Inspired Oxygen 12/31/24 10:06 12/31/24 10:07 12/31/24 10:11 Temperature 99.6 F 99.6 F 99.6 F Pulse Rate 92 99 91 Respiratory Rate 28 H 22 H 29 H Blood Pressure 86/39 L 75/41 L Pulse Oximetry 93 93 94 Oxygen Delivery Oxygen Flow Rate Fraction of Inspired Oxygen 12/31/24 10:15 12/31/24 10:17 12/31/24 10:18 Temperature 99.2 F 99.5 F 99.6 F Pulse Rate 91 92 103 H Respiratory Rate 29 H 30 H 22 H Blood Pressure 95/29 L Pulse Oximetry 95 93 94 Oxygen Delivery Oxygen Flow Rate Fraction of Inspired Oxygen 12/31/24 10:20 12/31/24 10:21 12/31/24 10:23 Temperature 99.7 F H Pulse Rate 92 88 91 Respiratory Rate 27 H Blood Pressure 95/29 L 136/49 L 136/49 L Pulse Oximetry 96 Oxygen Delivery Oxygen Flow Rate Fraction of Inspired Oxygen 12/31/24 10:25 12/31/24 10:25 12/31/24 10:28 Temperature 99.7 F H 99.7 F H Pulse Rate 95 96 99 Respiratory Rate 27 H 20 Blood Pressure 86/35 L 86/35 L Pulse Oximetry 96 96 Oxygen Delivery Oxygen Flow Rate Fraction of Inspired Oxygen 12/31/24 10:30 12/31/24 10:30 12/31/24 10:31 Temperature 99.6 F 99.1 F 99.4 F Pulse Rate 97 90 85 Respiratory Rate 29 H 31 H 27 H Blood Pressure 135/42 L 135/42 L Pulse Oximetry 97 97 97 Oxygen Delivery Oxygen Flow Rate Fraction of Inspired Oxygen 12/31/24 10:32 12/31/24 10:43 12/31/24 10:48 Temperature 99.5 F 99.7 F H Pulse Rate 95 86 102 H Respiratory Rate 18 30 H Blood Pressure 136/50 L Pulse Oximetry 97 97 Oxygen Delivery Oxygen Flow Rate Fraction of Inspired Oxygen 12/31/24 10:51 12/31/24 10:57 12/31/24 10:58 Temperature 99.5 F 99.6 F 99.6 F Pulse Rate 101 H 107 H 104 H Respiratory Rate 34 H 33 H 27 H Blood Pressure 141/45 H 99/78 L Pulse Oximetry 96 96 97 Oxygen Delivery Oxygen Flow Rate Fraction of Inspired Oxygen 12/31/24 11:00 12/31/24 11:01 12/31/24 11:06 Temperature 99.7 F H 99.7 F H 99.6 F Pulse Rate 105 H 102 H 96 Respiratory Rate 29 H 33 H 32 H Blood Pressure 132/55 L 136/43 L Pulse Oximetry 97 97 96 Oxygen Delivery Oxygen Flow Rate Fraction of Inspired Oxygen 12/31/24 11:50 Temperature Pulse Rate 75 Respiratory Rate Blood Pressure 70/44 L Pulse Oximetry Oxygen Delivery Oxygen Flow Rate Fraction of Inspired Oxygen Exam Narrative: General: Elderly gentleman, contracted, currently in no acute distress HEENT:? Does not allow me to open his eyes to evaluate his pupils, oral mucosa seems to be dry Neck:? Supple Respiratory:? Coarse breath sounds bilaterally, decreased on the right side, adequate air entry otherwise Cardiac:? S1-S2, regular rate and rhythm Abdomen:? Soft, nontender, nondistended, PEG tube in place, hypoactive bowel Extremities:? Contracted extremities, no edema, palpable pedal pulses Neuro:? Patient has eyes closed, does not open his eyes to verbal response, does not follow simple commands. Skin:? Warm and dry some bruising noted on the upper extremity Psych:? Unable to assess at this time Results Labs 12/31/24 07:42 12/31/24 09:22 Labs: Short CBC 12/31/24 Range/Units 07:42 WBC 16.9 H (4.5-10.0) K/mm3 Hgb 11.9 L (14.0-18.0) g/dL Hct 38.9 L (42.0-52.0) % Plt Count 324 D (150-375) k/mm3 BMP 12/31/24 12/31/24 07:42 09:22 Sodium 147 H 148 H Potassium 5.0 5.0 Chloride 113 H 115 H Carbon Dioxide 21 L 22 BUN 100 H D 98 H Creatinine 3.34 H 3.01 H Glucose 201 H 208 H Calcium 9.3 8.7 Cardiac Enzymes 12/31/24 Range/Units 07:42 Total Creatine Kinase 1164 H (55-170) U/L Troponin I 0.027 (0.000-0.034) ng/mL Liver Function 12/31/24 Range/Units 07:42 Total Bilirubin 0.8 (0.2-1.3) mg/dL AST 41 (17-59) U/L ALT 26 (6-50) U/L Alkaline Phosphatase 86 (38-126) U/L Albumin 3.5 (3.5-5.1) g/dL Urine 12/31/24 Range/Units 08:19 Urine Color Dark yellow (Yellow) Urine Appearance Turbid H (Clear) Urine pH 5.0 (5.0-9.0) Ur Specific [place] 1.024 (1.001-1.035) Urine Protein 2+ H (Negative) mg/dL Urine Glucose (UA) Negative (Negative) mg/dL Quality VTE Prophylaxis VTE prophylaxis: pharmacologic ordered Hospitalist MIPS Advance Care Plan I have confirmed that the patient's Advanced Care Plan is present, code status is documented, or surrogate decision maker is listed in patient medical record.: Yes Medication Reconciliation I have utilized all available resources to obtain, update and review the patients current medications (includes all prescriptions, OTC, herbals, cannabis, and nutritional supplements).: Yes
--- NOTE | 2024-12-31 12:31 | P.HP_ITS ---
H&P: HPI History of Present Illness Date/Time: 12/31/24 12:31 Chief Complaint: Weakness Narrative: 79-year-old male past medical history of diabetes, BPH, CKD stage 2, feeding to, chronic Schuster, epilepsy, TIA and hypertension presents the hospital with concerns for sepsis. Per the ED note the patient had a temperature of 102?, tachypneic and tachycardic with a blood pressure in 80s by EMS. Patient was apparently on antibiotics [facility] with a chronic Schuster. Lab work shows leukocytosis at 16.9, hemoglobin 11.9, D-dimer 3.71, ABG pH 7.46, pCO2 27, PO2 74, bicarb 18 on nasal cannula 6 L sodium 143, chloride 115, BUN 98, creatinine 3.01 with baseline being around 1, GFR 20 glucose 208 lactic acid 2.3 followed by 2.1, CK 1164, CRP 4.6, BNP 335, UA is turbid with positive nitrates, 2+ bilirubin, 2+ leukocyte esterase, over [address] showed no acute process. CT chest abdomen pelvis shows right-sided pneumonia, wall thickening of the bladder, small amount of ascites along a ventriculoperitoneal shunt catheter. Review of Systems Review of Systems: ROS unobtainable: Yes unobtainable due to medical condition and unobtainable due to mental status [facility] Past Medical History Medical History (Updated 12/31/24 @ 15:15 by Glendy Murphy, SANCHEZ) Uses feeding tube Indwelling Schuster catheter present Essential (primary) hypertension Epilepsy, unspecified, not intractable, without status epilepticus Major depressive disorder, single episode, moderate Hyperlipidemia, unspecified Type 2 diabetes mellitus with diabetic chronic kidney disease Other dysphagia Palpitations Benign prostatic hyperplasia without lower urinary tract symptoms Chronic kidney disease, stage 2 (mild) Acute kidney failure, unspecified Other cerebral infarction due to occlusion or stenosis of small artery Dietary counseling and surveillance Atelectasis Acute respiratory failure, unspecified whether with hypoxia or hypercapnia Constipation, unspecified Aspiration pneumonia Obstructive and reflux uropathy, unspecified Altered mental status, unspecified Arachnoid cyst Diabetes Transient ischemic attack (TIA) Surgical History Surgical History [employer] (ventriculoperitoneal) shunt status Social History Social History (Updated 09/15/25 @ 07:28 by Alexandra Montilla MD) Social History: Years smoked: 4 Smoking status: Former smoker Tobacco type: pipe Second hand tobacco smoke exposure: No Alcohol intake: former Drinks per week: 1 Substance use: never Substance use type: does not use Living arrangements: prison Additional living arrangements comments: ever care of Lizzy since 12/26/2024 Spiritual care concerns: No Meds Home Medications and Allergies Home Medications ?Medication ?Instructions ?Recorded ?Confirmed ?Type Centrum Silver Men 1 tab-cap PO DAILY 12/12/19 12/31/24 History acetaminophen 325 mg tablet 325 mg PO Q6H PRN Pain 12/31/24 History atorvastatin 40 mg tablet 40 mg PO DAILY 12/12/1912/17 History clopidogrel 75 mg tablet 75 mg PO DAILY 12/12/1912/17 History empagliflozin 10 mg tablet 25 mg PO DAILY 12/12/19 History (Jardiance) Held on 01/01/22. Instructions: Resume on 01/05/22. until you have discussed with your PCp on what he wants him to do finasteride 5 mg tablet 5 mg PO DAILY 12/12/1912/31 History lisinopril 10 mg tablet 10 mg PO DAILY 12/31/2112/17 History ondansetron 4 mg disintegrating 4 mg PO Q8H PRN nausea and 01/01/22 12/31/24 Rx tablet vomiting #14 tabs guaifenesin 600 mg tablet, 600 mg PO BID PRN congestio n 7 07/03/24 12/31/24 Rx extended release 12 hr (Mucinex) days #14 tabs aspirin 81 mg capsule 81 mg PO DAILY 12/31/2412/17 History doxazosin 1 mg tablet (Cardura) 1 mg PO DAILY 12/31/24 12/31/24 History famotidine 20 mg tablet 20 mg PO BID 12/31/24 History insulin lispro 100 unit/mL 1 sliding scale dose subcut 12/31/24 12/31/24 History subcutaneous pen (Humalog KwikPen USEASDIRECTD (U-100) Insulin) polyethylene glycol 3350 17 17 g PO DAILY 12/31/24 History gram/dose oral powder (Miralax) risperidone 0.25 mg tablet 0.25 mg PO BID 12/31/24 History sennosides 8.6 mg-docusate sodium 1 tab-cap PO BID 12/31/24 History 50 mg tablet valproic acid (as sodium salt) 250 500 mg PO Q12H 12/1712/31/24 History mg/5 mL oral solution Allergies Allergy/AdvReac Type Severity Reaction Status Date / Time nitrofurantoin Allergy Intermediate Nausea and Verified 12/31/24 11:52 Vomiting sulfamethoxazole Allergy Intermediate Nausea and Verified 12/31/24 11:52 Vomiting Vital Signs Vital Signs - 24 hr 12/31/24 07:16 12/31/24 07:21 12/31/24 07:30 Temperature 100.8 F H Pulse Rate 108 H 102 H 110 H Respiratory Rate 28 H 47 H Blood Pressure 81/42 L Pulse Oximetry 87 L 91 Oxygen Delivery Room Air Oxygen Flow Rate Fraction of Inspired Oxygen 12/31/24 07:30 12/31/24 07:33 12/31/24 07:42 Temperature Pulse Rate 96 96 92 Respiratory Rate 41 H 35 H 38 H Blood Pressure 59/37 L 55/43 L Pulse Oximetry 94 Oxygen Delivery Oxygen Flow Rate Fraction of Inspired Oxygen 12/31/24 07:45 12/31/24 07:46 12/31/24 08:00 Temperature Pulse Rate 90 90 89 Respiratory Rate 14 24 H 27 H Blood Pressure 76/41 L 86/42 L Pulse Oximetry 95 94 92 Oxygen Delivery Oxygen Flow Rate Fraction of Inspired Oxygen 12/31/24 08:01 12/31/24 08:02 12/31/24 08:07 Temperature 96.1 F L Pulse Rate 90 92 101 H Respiratory Rate 28 H 20 19 Blood Pressure 106/47 L 167/75 H Pulse Oximetry 92 92 91 Oxygen Delivery Oxygen Flow Rate Fraction of Inspired Oxygen 12/31/24 08:12 12/31/24 08:15 12/31/24 08:18 Temperature 98.5 F 99.0 F Pulse Rate 96 96 Respiratory Rate 25 H 37 H Blood Pressure 123/81 Pulse Oximetry 87 L 96 94 Oxygen Delivery Room Air Oxygen Flow Rate Fraction of Inspired Oxygen 12/31/24 08:19 12/31/24 08:21 12/31/24 08:22 Temperature 99.3 F 99.1 F Pulse Rate 93 Respiratory Rate 35 H Blood Pressure 109/34 L Pulse Oximetry 92 92 Oxygen Delivery Nasal Cannula Oxygen Flow Rate 3 Fraction of Inspired Oxygen 12/31/24 08:22 12/31/24 08:22 12/31/24 08:30 Temperature 99.1 F 99.3 F Pulse Rate 93 93 96 Respiratory Rate 30 H 27 H Blood Pressure Pulse Oximetry 92 93 Oxygen Delivery Oxygen Flow Rate Fraction of Inspired Oxygen 12/31/24 08:53 12/31/24 08:58 12/31/24 08:59 Temperature 99.6 F 99.6 F Pulse Rate 107 H 95 Respiratory Rate 31 H 30 H Blood Pressure 86/57 L 93/26 L Pulse Oximetry 92 89 L 92 Oxygen Delivery Nasal Cannula Oxygen Flow Rate 6 Fraction of Inspired Oxygen 12/31/24 09:00 12/31/24 09:02 12/31/24 09:05 Temperature 99.6 F 99.6 F Pulse Rate 94 94 Respiratory Rate 28 H 27 H Blood Pressure 132/94 H 97/55 L Pulse Oximetry 91 89 L 94 Oxygen Delivery Non-Rebreather Mask Oxygen Flow Rate 15 Fraction of Inspired Oxygen 12/31/24 09:12 12/31/24 09:15 12/31/24 09:16 Temperature 99.2 F 99.2 F 99.3 F Pulse Rate 93 94 94 Respiratory Rate 27 H 28 H 27 H Blood Pressure 102/70 102/70 Pulse Oximetry 94 91 93 Oxygen Delivery Oxygen Flow Rate Fraction of Inspired Oxygen 12/31/24 09:25 12/31/24 09:31 12/31/24 09:32 Temperature 99.4 F 99.5 F Pulse Rate 97 105 H Respiratory Rate 25 H 27 H Blood Pressure 100/58 L Pulse Oximetry 91 93 95 Oxygen Delivery High Flow Therapy with Na Oxygen Flow Rate 45 Fraction of Inspired Oxygen 70 12/31/24 09:36 12/31/24 09:45 12/31/24 09:46 Temperature 99.3 F 99.4 F 99.4 F Pulse Rate 107 H 92 94 Respiratory Rate 31 H 25 H 29 H Blood Pressure 149/87 H 78/54 L Pulse Oximetry 96 Oxygen Delivery Oxygen Flow Rate Fraction of Inspired Oxygen 12/31/24 09:51 12/31/24 09:55 12/31/24 09:56 Temperature 99.5 F 99.6 F 99.1 F Pulse Rate 91 107 H 103 H Respiratory Rate 29 H 25 H 32 H Blood Pressure 71/57 L 93/41 L 145/62 H Pulse Oximetry 96 97 Oxygen Delivery Oxygen Flow Rate Fraction of Inspired Oxygen 12/31/24 09:57 12/31/24 09:59 12/31/24 10:00 Temperature 99.3 F 99.5 F 99.5 F Pulse Rate 104 H 97 93 Respiratory Rate 36 H 20 29 H Blood Pressure 136/72 Pulse Oximetry 96 96 95 Oxygen Delivery Oxygen Flow Rate Fraction of Inspired Oxygen 12/31/24 10:02 12/31/24 10:02 12/31/24 10:03 Temperature 99.5 F 99.5 F Pulse Rate 97 99 94 Respiratory Rate 32 H 33 H Blood Pressure 69/26 L 69/26 L 69/26 L Pulse Oximetry 92 92 Oxygen Delivery Oxygen Flow Rate Fraction of Inspired Oxygen 12/31/24 10:06 12/31/24 10:07 12/31/24 10:11 Temperature 99.6 F 99.6 F 99.6 F Pulse Rate 92 99 91 Respiratory Rate 28 H 22 H 29 H Blood Pressure 86/39 L 75/41 L Pulse Oximetry 93 93 94 Oxygen Delivery Oxygen Flow Rate Fraction of Inspired Oxygen 12/31/24 10:15 12/31/24 10:17 12/31/24 10:18 Temperature 99.2 F 99.5 F 99.6 F Pulse Rate 91 92 103 H Respiratory Rate 29 H 30 H 22 H Blood Pressure 95/29 L Pulse Oximetry 95 93 94 Oxygen Delivery Oxygen Flow Rate Fraction of Inspired Oxygen 12/31/24 10:20 12/31/24 10:21 12/31/24 10:23 Temperature 99.7 F H Pulse Rate 92 88 91 Respiratory Rate 27 H Blood Pressure 95/29 L 136/49 L 136/49 L Pulse Oximetry 96 Oxygen Delivery Oxygen Flow Rate Fraction of Inspired Oxygen 12/31/24 10:25 12/31/24 10:25 12/31/24 10:28 Temperature 99.7 F H 99.7 F H Pulse Rate 95 96 99 Respiratory Rate 27 H 20 Blood Pressure 86/35 L 86/35 L Pulse Oximetry 96 96 Oxygen Delivery Oxygen Flow Rate Fraction of Inspired Oxygen 12/31/24 10:30 12/31/24 10:30 12/31/24 10:31 Temperature 99.6 F 99.1 F 99.4 F Pulse Rate 97 90 85 Respiratory Rate 29 H 31 H 27 H Blood Pressure 135/42 L 135/42 L Pulse Oximetry 97 97 97 Oxygen Delivery Oxygen Flow Rate Fraction of Inspired Oxygen 12/31/24 10:32 12/31/24 10:43 12/31/24 10:48 Temperature 99.5 F 99.7 F H Pulse Rate 95 86 102 H Respiratory Rate 18 30 H Blood Pressure 136/50 L Pulse Oximetry 97 97 Oxygen Delivery Oxygen Flow Rate Fraction of Inspired Oxygen 12/31/24 10:51 12/31/24 10:57 12/31/24 10:58 Temperature 99.5 F 99.6 F 99.6 F Pulse Rate 101 H 107 H 104 H Respiratory Rate 34 H 33 H 27 H Blood Pressure 141/45 H 99/78 L Pulse Oximetry 96 96 97 Oxygen Delivery Oxygen Flow Rate Fraction of Inspired Oxygen 12/31/24 11:00 12/31/24 11:01 12/31/24 11:06 Temperature 99.7 F H 99.7 F H 99.6 F Pulse Rate 105 H 102 H 96 Respiratory Rate 29 H 33 H 32 H Blood Pressure 132/55 L 136/43 L Pulse Oximetry 97 97 96 Oxygen Delivery Oxygen Flow Rate Fraction of Inspired Oxygen 12/31/24 11:39 12/31/24 11:50 12/31/24 12:06 Temperature Pulse Rate 75 86 Respiratory Rate Blood Pressure 70/44 L 74/43 L Pulse Oximetry 96 Oxygen Delivery High Flow Therapy with Na Oxygen Flow Rate 45 Fraction of Inspired Oxygen 60 Exam Narrative: General: well appearing, appears stated age. HEENT: normocephalic, atraumatic. Mucous membranes moist. EOMI, PERRLA, bilateral sclera anicteric, no conjunctival injection. Neck supple without JVD, lymphadenopathy, or bruit. Respiratory: clear to ascultation bilaterally. No rales/rhonic/wheezes. Cardiovascular: Regular rate and rhythm, normal S1-S2 upon ascultation. No murmurs, rubs, or clicks. PMI is nondisplaced, capillary refill less than 3 second. Abdomen: Soft, round, no pulsatile masses, nondistended and nontender. No rebound, no guarding. No CVA tenderness, no hepatosplenomegaly. Bowel sounds present to all four quadrants. No high pitch or tinkling sounds, resonant to percussion. Extremities: No cyanosis, clubbing, or edema present. Pulses are palpable 2/2. Active ROM to all four extremities. Neuro: Alert and orientated x 4. PERRLA. Cranial nerves 2-12 intact without focal deficit. Skin: Warm, dry, and intact, without rash, erythema, or lesion. Psych: pleasant, cooperative, normal speech, normal affect, no hallucinations, no dysarthia H&P: Results Labs Labs: Short CBC 12/31/24 Range/Units 07:42 WBC 16.9 H (4.5-10.0) K/mm3 Hgb 11.9 L (14.0-18.0) g/dL Hct 38.9 L (42.0-52.0) % Plt Count 324 D (150-375) k/mm3 BMP 12/31/24 12/31/24 07:42 09:22 Sodium 147 H 148 H Potassium 5.0 5.0 Chloride 113 H 115 H Carbon Dioxide 21 L 22 BUN 100 H D 98 H Creatinine 3.34 H 3.01 H Glucose 201 H 208 H Calcium 9.3 8.7 Cardiac Enzymes 12/31/24 Range/Units 07:42 Total Creatine Kinase 1164 H (55-170) U/L Troponin I 0.027 (0.000-0.034) ng/mL Liver Function 12/31/24 Range/Units 07:42 Total Bilirubin 0.8 (0.2-1.3) mg/dL AST 41 (17-59) U/L ALT 26 (6-50) U/L Alkaline Phosphatase 86 (38-126) U/L Albumin 3.5 (3.5-5.1) g/dL Urine 12/31/24 Range/Units 08:19 Urine Color Dark yellow (Yellow) Urine Appearance Turbid H (Clear) Urine pH 5.0 (5.0-9.0) Ur Specific [place] 1.024 (1.001-1.035) Urine Protein 2+ H (Negative) mg/dL Urine Glucose (UA) Negative (Negative) mg/dL Assessment and Plan Assessment and plan (1) UTI (urinary tract infection) due to urinary indwelling Schuster catheter: Code(s): T83.511A - Infection and inflammatory reaction due to indwelling urethral catheter, initial encounter; N39.0 - Urinary tract infection, site not specified Status: Acute Assessment and Plan: Cefepime [facility] (2) Pneumonia: Code(s): J18.9 - Pneumonia, unspecified organism Status: Acute Assessment and Plan: Cefepime, doxy and azithromycin (3) Septic shock: Code(s): A41.9 - Sepsis, unspecified organism; R65.21 - Severe sepsis with septic shock Status: Acute Assessment and Plan: Septic shock with severe hypotension Peripheral levo Plan to switch patient from DNR DNI to comfort care once son arrives from out of town (4) Acute renal failure: Code(s): N17.9 - Acute kidney failure, unspecified Status: Acute Assessment and Plan: IVF (5) Diabetes: Code(s): E11.9 - Type 2 diabetes mellitus without complications Status: Acute Assessment and Plan: Q.6 Accu-Cheks SSI Plan and son at bedside and ready to transition to comfort care Code status updated Morphine and Valium added Okay to transfer to [facility] Advance Care Plan I have confirmed that the patient's Advanced Care Plan is present, code status is documented, or surrogate decision maker is listed in patient medical record.: Yes Medication Reconciliation I have utilized all available resources to obtain, update and review the patients current medications (includes all prescriptions, OTC, herbals, cannabis, and nutritional supplements).: Yes
[2024-12-31] MEDS: LACTATED RINGERS 1,000 ML 100 ML IV CONT (13:30)
[2024-12-31] MEDS: DOXYCYCLINE IV 100 MG in SODIUM CHLORIDE 0.9% IV 100 ML IVPB (13:33)
[2024-12-31] MEDS: VALPROIC ACID LIQ 250 MG/5 ML ORAL SOLUTION UDC 500 MG PO (14:31)
[2024-12-31] MEDS: FAMOTIDINE 20 MG TABLET PO (17:47)
[2024-12-31] MEDS: diazePAM INJ (*CRX) 10 MG/2 ML SYRINGE 5 MG IV PUSH (20:51)
[2024-12-31] MEDS: MORPHINE SULFATE INJ (*CRX) 10 MG/ML AMP 5 MG IV PUSH (20:52)
[2024-12-31] MEDS: MORPHINE SULFATE (*CRX) 2 MG/ML INJ IV PUSH (23:48)
--- NOTE | 2025-01-01 01:33 | PC.NURSE ---
This patient, Jesus Soto, was received from ICU-7 on 12/31/24 at 2357. Patient/family oriented to unit policies and routines
--- NOTE | 2025-01-01 02:35 | PC.NURSE ---
This patient, Jesus Soto, was transferred to [facility] via bed without issue on 01/01/25 at 0023. Personal belongings sent with patient. Report given to PATRICIA Simmons. Appropriate documentation sent with patient.
[2025-01-01] MEDS: MORPHINE SULFATE (*CRX) 2 MG/ML INJ IV PUSH ×2 (04:37→14:47)
[2025-01-01 08:00] VITALS: BP 127/57; PULSE 107; RESP 22; TEMP 36.6; O2SAT 93
[2025-01-01 08:45] VITALS: O2SAT 93
--- NOTE | 2025-01-01 13:48 | P.PNIM_ITS ---
Progress Note: A&P Assessment and Plan (1) UTI (urinary tract infection) due to urinary indwelling Schuster catheter: Code(s): T83.511A - Infection and inflammatory reaction due to indwelling urethral catheter, initial encounter; N39.0 - Urinary tract infection, site not specified Status: Acute Assessment and Plan: Cefepime Schuster exchanged emergency room (2) Pneumonia: Code(s): J18.9 - Pneumonia, unspecified organism Status: Acute Assessment and Plan: Cefepime, doxy and azithromycin (3) Septic shock: Code(s): A41.9 - Sepsis, unspecified organism; R65.21 - Severe sepsis with septic shock Status: Acute Assessment and Plan: Septic shock with severe hypotension Peripheral levo Plan to switch patient from DNR DNI to comfort care once son arrives from out of town (4) Acute renal failure: Code(s): N17.9 - Acute kidney failure, unspecified Status: Acute Assessment and Plan: IVF (5) Diabetes: Code(s): E11.9 - Type 2 diabetes mellitus without complications Status: Acute Assessment and Plan: Q.6 Accu-Cheks SSI Plan Continue Comfort care care team coordinator scheduler consulted for hospice care eval Discussed with son and daughter at bedside monitor Subjective Date/time seen: 01/01/25 13:48 Interval history: Comfortable at bedside Patient is now on comfort care Review of Systems Review of Systems: ROS unobtainable: Yes unobtainable due to medical condition and unobtainable due to mental status Exam Narrative: General: well appearing, appears stated age. HEENT: normocephalic, atraumatic. Mucous membranes moist. EOMI, PERRLA, bilateral sclera anicteric, no conjunctival injection. Neck supple without JVD, lymphadenopathy, or bruit. Respiratory: clear to ascultation bilaterally. No rales/rhonic/wheezes. Cardiovascular: Regular rate and rhythm, normal S1-S2 upon ascultation. No murmurs, rubs, or clicks. PMI is nondisplaced, capillary refill less than 3 second. Abdomen: Soft, round, no pulsatile masses, nondistended and nontender. No rebound, no guarding. No CVA tenderness, no hepatosplenomegaly. Bowel sounds present to all four quadrants. No high pitch or tinkling sounds, resonant to percussion. Extremities: No cyanosis, clubbing, or edema present. Pulses are palpable 2/2. Active ROM to all four extremities. Neuro: Alert and orientated x 4. PERRLA. Cranial nerves 2-12 intact without focal deficit. Skin: Warm, dry, and intact, without rash, erythema, or lesion. Psych: pleasant, cooperative, normal speech, normal affect, no hallucinations, no dysarthia Objective Data Vital Signs Vital Signs: Vital Signs - 24 hr 12/31/24 14:00 12/31/24 14:00 12/31/24 14:00 Temperature 98.4 F Pulse Rate 95 95 95 Respiratory Rate 29 H Blood Pressure 95/38 L 95/38 L Pulse Oximetry 95 Oxygen Delivery Oxygen Flow Rate Fraction of Inspired Oxygen 12/31/24 14:47 12/31/24 15:01 12/31/24 16:00 Temperature 98.6 F Pulse Rate 82 97 82 Respiratory Rate 29 H Blood Pressure 83/45 L 171/134 H 128/87 Pulse Oximetry 97 Oxygen Delivery Oxygen Flow Rate Fraction of Inspired Oxygen 12/31/24 16:00 12/31/24 16:00 12/31/24 16:00 Temperature Pulse Rate 94 82 Respiratory Rate Blood Pressure 128/87 Pulse Oximetry 97 Oxygen Delivery High Flow Therapy with Na Oxygen Flow Rate 45 Fraction of Inspired Oxygen 58 12/31/24 17:02 12/31/24 17:22 12/31/24 17:48 Temperature Pulse Rate 77 84 90 Respiratory Rate Blood Pressure 154/60 H 85/44 L Pulse Oximetry Oxygen Delivery High Flow Therapy with Na Oxygen Flow Rate 45 Fraction of Inspired Oxygen 58 12/31/24 18:00 12/31/24 18:00 12/31/24 18:00 Temperature 99.6 F Pulse Rate 99 83 83 Respiratory Rate 26 H Blood Pressure 91/69 L 121/67 Pulse Oximetry 90 Oxygen Delivery Oxygen Flow Rate Fraction of Inspired Oxygen 12/31/24 20:00 12/31/24 20:00 12/31/24 20:00 Temperature 99.9 F H Pulse Rate 105 H 105 H 107 H Respiratory Rate 27 H Blood Pressure 167/69 H 167/69 H Pulse Oximetry 97 Oxygen Delivery Oxygen Flow Rate Fraction of Inspired Oxygen 12/31/24 20:00 12/31/24 20:20 12/31/24 20:55 Temperature Pulse Rate 90 98 Respiratory Rate 20 Blood Pressure 141/93 H Pulse Oximetry 97 95 Oxygen Delivery High Flow Therapy with Na High Flow Therapy with Na Oxygen Flow Rate 45 45 Fraction of Inspired Oxygen 60 60 12/31/24 23:00 01/01/25 08:45 Temperature 99.7 F H Pulse Rate 91 Respiratory Rate 29 H Blood Pressure 115/57 L Pulse Oximetry 93 93 Oxygen Delivery Nasal Cannula Oxygen Flow Rate 2 Fraction of Inspired Oxygen Intake/Output Intake/Output: Intake & Output 09/1312/30/24 12/31/24 01/01/25 23:59 23:59 23:59 23:59 Intake Total 2449.5 0 Output Total 450 300 Balance 1999.5 -300 Meds/Results Medications: Active Medications Generic Name Dose Route Start Last Admin Trade Name Freq PRN Reason Stop Dose Admin Acetaminophen 650 mg 12/31/24 10:29 Acetaminophen 650 Mg Suppository RECTAL Q6H PRN Mild Pain (1-3) or Fever Atropine Sulfate 1 - 2 drop 12/31/24 20:21 Atropine Sulfate 1% Ophth Soln 5 Ml Bottle SUBLINGUAL Q4H PRN Secretions Diazepam 2 mg 12/31/24 20:21 Diazepam Inj (*Crx) 10 Mg/2 Ml Syringe IM Q1HR PRN Agitation Morphine Sulfate 2 mg 12/31/24 20:21 01/01/25 04:37 Morphine Sulfate (*Crx) 2 Mg/Ml Inj IV PUSH 2 mg Q30M PRN Administration COMFORT Ondansetron HCl 4 mg 12/31/24 10:29 Ondansetron Inj 4 Mg/2 Ml Vial IV PUSH Q4H PRN Nausea Radiology Results: ITS Impressions Chest X-Ray 12/31/24 08:42 Impression: Early right lower lobe pneumonia Head CT 12/31/24 08:58 IMPRESSION: 1. No acute intracranial process. 2. Large likely arachnoid cyst overlying the anterior left frontal and temporal lobes resulting in significant but stable mass effect with 1.4 cm right to left midline shift without significant change since prior study. 3. Unchanged left frontal ventricular drainage catheter which extends across the arachnoid cyst, the anterior horn of the left lateral ventricle with distal tip positioned along the lateral wall of the right lateral ventricle. Ventricles are unchanged since the prior study. 4. Unchanged region of encephalomalacia in the right basal ganglia, frontal lobe and insula consistent with sequela of chronic infarct. Chest/Abdomen/Pelvis CT 12/31/24 09:09 IMPRESSION: 1. Pneumonia, most advanced the right lower lobe with additional smaller regions in the dependent right middle and upper lobes. 2. Prominent wall thickening of the decompressed bladder with mild surrounding stranding concerning for cystitis which could be acute or chronic. Correlate with urinalysis. 3. Likely sludge versus gallstones within the dependent aspect of the otherwise normal-appearing gallbladder. 4. Small amount of ascites in the deep pelvis along side the tip of a ventriculoperitoneal shunt catheter. Labs Labs: Laboratory Results - last 24 hr 12/31/24 18:06 POC Capillary Glucose 197 H Quality VTE Prophylaxis VTE prophylaxis: pharmacologic ordered
--- NOTE | 2025-01-03 13:42 | P.DS_ITS ---
DS: Admitting Diagnosis Discharge Date 01/01/25 Admitting Diagnosis Weakness DS: Discharge Diagnosis Discharge Diagnosis (1) Septic shock: Code(s): A41.9 - Sepsis, unspecified organism; R65.21 - Severe sepsis with septic shock Status: Acute DS: Summary Hospital Course Hospital Course: HPI per admitting provider 79-year-old male past medical history of diabetes, BPH, CKD stage 2, feeding to, chronic Schuster, epilepsy, TIA and hypertension presents the hospital with concerns for sepsis. Per the ED note the patient had a temperature of 102?, tachypneic and tachycardic with a blood pressure in 80s by EMS. Patient was apparently on antibiotics at his correction with a chronic Schuster. Lab work shows leukocytosis at 16.9, hemoglobin 11.9, D-dimer 3.71, ABG pH 7.46, pCO2 27, PO2 74, bicarb 18 on nasal cannula 6 L sodium 143, chloride 115, BUN 98, creatinine 3.01 with baseline being around 1, GFR 20 glucose 208 lactic acid 2.3 followed by 2.1, CK 1164, CRP 4.6, BNP 335, UA is turbid with positive nitrates, 2+ bilirubin, 2+ leukocyte esterase, over [address] showed no acute process. CT chest abdomen pelvis shows right-sided pneumonia, wall thickening of the bladder, small amount of ascites along a ventriculoperitoneal shunt catheter. Patine was started on Cefepime, IVF and LEvophed in the ER for UTI with septic shock however family decided to transiton to comfort care. Patient was transitioned to comfort care and hospice was consulted. Patient was evetnually discharge to hospice care facility. F/u with hospice care. Time Spent with Patient Time attestation: Total time spent providing and/or coordinating discharge services: DS: Data Data Completed and Pending Labs on day of discharge: Preliminary micro results at discharge 12/31/24 08:19 - Preliminary Urine Schuster [place] 12/31/24 07:19 Blood Culture - Preliminary Blood 12/31/24 07:42 Blood Culture - Preliminary Blood Discharge Plan Discharge Attending physician on discharge: Collin Schwartz Consulting providers: Karlo Zimmerman; Cholo Davenport; Glendy Murphy; Collin Schwartz; Marcell Rashid; Julian Castellano Discharging Clinician: Collin Schwartz Anticipated Discharge Date/Time: 01/01/25 13:40 Patient Disposition: Hospice [facility] Inpatient Patient Instructions: Clopidogrel (By mouth) Patient Language: Mongolian Date of admission: 12/31/24 12:14 Primary Care Provider: FabiolaRuthie Admitting Provider: Pau Hurley Attending physician on admission: Collin Schwartz Condition: Guarded Prognosis
== END 2025-01-01 16:59 | disposition hospice, inpatient (51) | DRG 871 ==
LOC: ANHED 09:18 → ANHICU 11:13 → ANH3MEDSUR 01-01 01:36
PROVIDERS: Admitting Provider General Practice; Emergency Provider Student in an Organized Health Care Education/Training Program; Visit Provider Internal Medicine
DX: A41.9 Sepsis, unspecified organism (principal); R65.21 Severe sepsis with septic shock; J18.9 Pneumonia, unspecified organism; J96.01 Acute respiratory failure with hypoxia; J96.02 Acute respiratory failure with hypercapnia; T83.511A Infection and inflammatory reaction due to indwelling urethral catheter, initial encounter; N39.0 Urinary tract infection, site not specified; E87.0 Hyperosmolality and hypernatremia; N17.9 Acute kidney failure, unspecified; E87.21 Acute metabolic acidosis; E78.5 Hyperlipidemia, unspecified; E11.22 Type 2 diabetes mellitus with diabetic chronic kidney disease; I12.9 Hypertensive chronic kidney disease with stage 1 through stage 4 chronic kidney disease, or unspecified chronic kidney disease; E11.65 Type 2 diabetes mellitus with hyperglycemia; G40.909 Epilepsy, unspecified, not intractable, without status epilepticus; N40.1 Benign prostatic hyperplasia with lower urinary tract symptoms; N13.9 Obstructive and reflux uropathy, unspecified; N18.2 Chronic kidney disease, stage 2 (mild); F32.9 Major depressive disorder, single episode, unspecified; Z66 Do not resuscitate; Z87.891 Personal history of nicotine dependence; Z86.73 Personal history of transient ischemic attack (TIA), and cerebral infarction without residual deficits; D64.9 Anemia, unspecified; G93.0 Cerebral cysts; Z99.81 Dependence on supplemental oxygen; Z93.1 Gastrostomy status
CPT/HCPCS: 36415; 36600; 70450; 71045; 71250; 74176; 80048; 80053; 81001; 82550; 82805; 82948; 83605; 83690; 83880; 84443; 84484; 85018; 85025; 85380; 85610; 85730; 86140; 87040; 87086; 87186; 87637; 87641; 93005; 96365; 96367; 99291; A9270; G0378; J0692; J2270; J3360; J3373; J7030; J7040; J7120

== ENCOUNTER 2025-01-01 16:39 | HOS | payer OTHER, MEDICARE, BC, SELFPAY ==
--- NOTE | 2025-01-01 17:25 | P.HP_ITS ---
H&P: HPI History of Present Illness Date/Time: 01/01/25 17:25 Chief Complaint: Uncontrolled pain and dyspnea Narrative: 79-year-old male long-term resident was admitted to acute care December 31 with septic shock secondary to right lower lobe pneumonia and possible UTI. In spite of broad-spectrum antibiotics and supportive care with IV few fluids and Levophed he did not improved. Family opted for DNR status to continue upon admission. Because of his advanced age poor functional status and multiple comorbidities they opted for inpatient hospice care to control his discomfort and dyspnea. Review of Systems Review of Systems: ROS unobtainable: Yes unobtainable due to medical condition PMFSH Past Medical History Medical History Uses feeding tube Indwelling Schuster catheter present Essential (primary) hypertension Epilepsy, unspecified, not intractable, without status epilepticus Major depressive disorder, single episode, moderate Hyperlipidemia, unspecified Type 2 diabetes mellitus with diabetic chronic kidney disease Other dysphagia Palpitations Benign prostatic hyperplasia without lower urinary tract symptoms Chronic kidney disease, stage 2 (mild) Acute kidney failure, unspecified Other cerebral infarction due to occlusion or stenosis of small artery Dietary counseling and surveillance Atelectasis Acute respiratory failure, unspecified whether with hypoxia or hypercapnia Constipation, unspecified Aspiration pneumonia Obstructive and reflux uropathy, unspecified Altered mental status, unspecified Arachnoid cyst Diabetes Transient ischemic attack (TIA) Surgical History Surgical History ELECTRICIAN RADIO (ventriculoperitoneal) 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 Mother No problems noted. Social History Social History (Updated 01/01/25 @ 17:27 by Neto Pat MD) Social History: . Code Status: DNR Years smoked: 4 Smoking status: Former smoker Tobacco type: pipe Second hand tobacco smoke exposure: No Alcohol intake: former Drinks per week: 1 Substance use: never Substance use type: does not use Living arrangements: long-term Additional living arrangements comments: ever care of [place] since 12/26/2024 Spiritual care concerns: No Meds Home Medications and Allergies Home Medications ?Medication ?Instructions ?Recorded ?Confirmed ?Type Centrum Silver Men 1 tab-cap PO DAILY 12/12/19 12/31/24 History acetaminophen 325 mg tablet 325 mg PO Q6H PRN Pain 12/31/24 History atorvastatin 40 mg tablet 40 mg PO DAILY 12/12/1912/17 History clopidogrel 75 mg tablet 75 mg PO DAILY 12/12/1912/17 History empagliflozin 10 mg tablet 25 mg PO DAILY 12/12/19 History (Jardiance) Held on 01/01/22. Instructions: Resume on 01/05/22. until you have discussed with your PCp on what he wants him to do finasteride 5 mg tablet 5 mg PO DAILY 12/12/1912/31 History lisinopril 10 mg tablet 10 mg PO DAILY 12/31/2112/17 History ondansetron 4 mg disintegrating 4 mg PO Q8H PRN nausea and 01/01/22 12/31/24 Rx tablet vomiting #14 tabs guaifenesin 600 mg tablet, 600 mg PO BID PRN congestio n 7 07/03/24 12/31/24 Rx extended release 12 hr (Mucinex) days #14 tabs aspirin 81 mg capsule 81 mg PO DAILY 12/31/2412/17 History doxazosin 1 mg tablet (Cardura) 1 mg PO DAILY 12/31/24 12/31/24 History famotidine 20 mg tablet 20 mg PO BID 12/31/24 History insulin lispro 100 unit/mL 1 sliding scale dose subcut 12/31/24 12/31/24 History subcutaneous pen (Humalog KwikPen USEASDIRECTD (U-100) Insulin) polyethylene glycol 3350 17 17 g PO DAILY 12/31/24 History gram/dose oral powder (Miralax) risperidone 0.25 mg tablet 0.25 mg PO BID 12/31/24 History sennosides 8.6 mg-docusate sodium 1 tab-cap PO BID 12/31/24 History 50 mg tablet valproic acid (as sodium salt) 250 500 mg PO Q12H 12/1712/31/24 History mg/5 mL oral solution Allergies Allergy/AdvReac Type Severity Reaction Status Date / Time nitrofurantoin Allergy Intermediate Nausea and Verified 12/31/24 11:52 Vomiting sulfamethoxazole Allergy Intermediate Nausea and Verified 12/31/24 11:52 Vomiting Exam Narrative: HEENT: Pharyngeal mucosa pink and intact NECK: No JVD CHEST: Mildly tachypneic, coarse breath sounds throughout with scattered coarse crackles HEART: NL S1/S2, regular, no murmur ABDOMEN: BS absent, soft, nontender, no mass, no bruits EXTREMITIES: No edema NEUROLOGIC: CN left facial droop MUSCULOSKELETAL: Left upper extremity contracture PSYCH: Unresponsive to verbal stimuli and minimally responsive to tactile stimuli Assessment and Plan Assessment and plan (1) Hospice care: Code(s): Z51.5 - Encounter for palliative care Status: Acute Assessment and Plan: * Meets inpatient hospice criteria due to quit requiring continuous IV hydromorphone at 0.25 milligrams/hour for control of pain and dyspnea * Discussed care and prognosis with spouse, daughter, and son-in-law bedside (2) Septic shock: Code(s): A41.9 - Sepsis, unspecified organism; R65.21 - Severe sepsis with septic shock Status: Acute (3) Pneumonia involving right lung: Code(s): J18.9 - Pneumonia, unspecified organism Status: Acute (4) UTI (urinary tract infection) due to urinary indwelling Schuster catheter: Code(s): T83.511A - Infection and inflammatory reaction due to indwelling urethral catheter, initial encounter; N39.0 - Urinary tract infection, site not specified Status: Acute (5) Diabetes: Code(s): E11.9 - Type 2 diabetes mellitus without complications Status: Acute (6) Acute renal failure: Code(s): N17.9 - Acute kidney failure, unspecified Status: Acute (7) Dehydration: Code(s): E86.0 - Dehydration Status: Acute (8) Acute hypernatremia: Code(s): E87.0 - Hyperosmolality and hypernatremia Status: Acute (9) Acidosis, lactic: Code(s): E87.20 - Acidosis, unspecified Status: Acute (10) Altered mental status, unspecified: Code(s): R41.82 - Altered mental status, unspecified Status: Acute (11) Dependence on supplemental oxygen: Code(s): Z99.81 - Dependence on supplemental oxygen Status: Acute
[2025-01-01 17:59] VITALS: PULSE 90; RESP 34
[2025-01-01] MEDS: HYDROmorphone HCL/PF (*CRX) 50 MG in SODIUM CHLORIDE 0.9% IV 95 ML IV CONT (17:59)
[2025-01-01 18:38] VITALS: O2SAT 94
[2025-01-01 20:00] VITALS: PULSE 90; RESP 34; O2SAT 94
[2025-01-02] MEDS: GLYCOPYRROLATE INJ (*SP) 0.2 MG/ML VIAL 0.1 MG IV PUSH ×4 (00:47→19:35)
[2025-01-02] MEDS: HYDROmorphone HCL INJ (*CRX) 1 MG/ML SYR 0.5 MG IV PUSH ×2 (00:47→19:35)
[2025-01-02 08:00] VITALS: O2SAT 94
[2025-01-02] MEDS: diazePAM INJ (*CRX) 10 MG/2 ML SYRINGE 5 MG IV PUSH (19:35)
--- NOTE | 2025-01-02 19:55 | P.PNIM_ITS ---
Progress Note: A&P Assessment and Plan (1) Hospice care: Code(s): Z51.5 - Encounter for palliative care Status: Acute Assessment and Plan: * Meets inpatient hospice criteria due to quit requiring continuous IV h ydromorphone at 0.25 milligrams/hour for control of pain and dyspnea * 01/01/2025 Discussed care and prognosis with spouse, daughter, and son-in-law bedside * 12/02/2024 Increased hydromorphone to 0.5 mg/hr and 1 mg q 2 hr prn, d/w family at bedside (2) Septic shock: Code(s): A41.9 - Sepsis, unspecified organism; R65.21 - Severe sepsis with septic shock Status: Acute (3) Pneumonia involving right lung: Code(s): J18.9 - Pneumonia, unspecified organism Status: Acute (4) UTI (urinary tract infection) due to urinary indwelling Schuster catheter: Code(s): T83.511A - Infection and inflammatory reaction due to indwelling urethral catheter, initial encounter; N39.0 - Urinary tract infection, site not specified Status: Acute (5) Diabetes: Code(s): E11.9 - Type 2 diabetes mellitus without complications Status: Acute (6) Acute renal failure: Code(s): N17.9 - Acute kidney failure, unspecified Status: Acute (7) Dehydration: Code(s): E86.0 - Dehydration Status: Acute (8) Acute hypernatremia: Code(s): E87.0 - Hyperosmolality and hypernatremia Status: Acute (9) Acidosis, lactic: Code(s): E87.20 - Acidosis, unspecified Status: Acute (10) Altered mental status, unspecified: Code(s): R41.82 - Altered mental status, unspecified Status: Acute (11) Dependence on supplemental oxygen: Code(s): Z99.81 - Dependence on supplemental oxygen Status: Acute Subjective Date/time seen: 01/02/25 19:55 Interval history: Restless last night. Family declined prn meds. Temp to 103 and uncomfortable this PM. They allowed prn meds this PM. Review of Systems Review of Systems: ROS unobtainable: Yes unobtainable due to medical condition Exam Narrative: HEENT: Pharyngeal mucosa pink and intact NECK: No JVD CHEST: Mildly tachypneic, coarse breath sounds throughout with scattered coarse crackles HEART: NL S1/S2, regular, no murmur ABDOMEN: BS absent, soft, nontender, no mass, no bruits EXTREMITIES: No edema NEUROLOGIC: CN left facial droop MUSCULOSKELETAL: Left upper extremity contracture PSYCH: Unresponsive to verbal stimuli and minimally responsive to tactile stimuli Objective Data Vital Signs Vital Signs: Vital Signs - 24 hr 01/01/25 20:00 01/02/25 08:00 01/02/25 08:00 Pulse Rate 90 Respiratory Rate 34 H Pulse Oximetry 94 94 94 Oxygen Delivery Nasal Cannula Nasal Cannula Nasal Cannula Oxygen Flow Rate 1 2 2 Fraction of Inspired Oxygen 28 Intake/Output Intake/Output: Intake & Output 12/30/24 12/31/24 01/01/25 01/02/25 23:59 23:59 23:59 23:59 Intake Total 240 Output Total 650 Balance -650 240 Meds/Results Medications: Active Medications Generic Name Dose Route Start Last Admin Trade Name Freq PRN Reason Stop Dose Admin Artificial Tears 0 drop 01/01/25 17:25 Artificial Tears Ophth Soln 15 Ml Bottle EACH EYE Q12H PRN Dry Eye(s) Bisacodyl 10 mg 01/01/25 17:25 Bisacodyl 10 Mg Suppository RECTAL DAILY PRN Constipation Diazepam 5 mg 01/01/25 17:23 01/02/25 19:35 Diazepam Inj (*Crx) 10 Mg/2 Ml Syringe IV PUSH 5 mg Q6H PRN Administration RESTLESSNESS Glycopyrrolate 0.1 mg 01/01/25 17:25 01/02/25 19:35 Glycopyrrolate Inj (*Sp) 0.2 Mg/Ml Vial IV PUSH 0.1 mg Q4H PRN Administration secretions Hydromorphone HCl 0.5 mg 01/01/25 17:22 01/02/25 19:35 Hydromorphone Hcl Inj (*Crx) 1 Mg/Ml Syr IV PUSH 0.5 mg Q2H PRN Administration PAIN/DYSPNEA Hydromorphone HCl 50 mg/ 100 mls @ 0.5 mls/hr 01/01/25 17:25 01/01/25 17:59 Sodium Chloride IV CONT 0.25 mg/hr .Q24H NACHO 0.5 mls/hr 0.25 MG/HR Administration Prochlorperazine Edisylate 10 mg 01/01/25 17:25 Prochlorperazine Edisylate 10 Mg/2 Ml Vial IV PUSH Q6H PRN Nausea And Vomiting
[2025-01-02 20:00] VITALS: PULSE 109; RESP 30; O2SAT 89
[2025-01-02 20:11] VITALS: BP 79/38; PULSE 109; RESP 30; TEMP 39.4; O2SAT 89
[2025-01-02 20:13] VITALS: PULSE 109; RESP 30
[2025-01-02] MEDS: HYDROmorphone HCL/PF (*CRX) 50 MG in SODIUM CHLORIDE 0.9% IV 95 ML IV CONT (20:13)
[2025-01-02 23:30] VITALS: TEMP 37.3
[2025-01-03 02:00] VITALS: TEMP 37
[2025-01-03] MEDS: diazePAM INJ (*CRX) 10 MG/2 ML SYRINGE 5 MG IV PUSH ×2 (02:40→11:42)
[2025-01-03] MEDS: HYDROmorphone HCL INJ (*CRX) 1 MG/ML SYR IV PUSH ×2 (04:57→11:41)
[2025-01-03 05:03] VITALS: TEMP 39.3
[2025-01-03 05:27] VITALS: BP 78/37; PULSE 102; RESP 25; O2SAT 84
[2025-01-03 13:20] VITALS: PULSE 104; RESP 28
[2025-01-03 17:46] VITALS: PULSE 108; RESP 22
[2025-01-03] MEDS: HYDROmorphone HCL/PF (*CRX) 50 MG in SODIUM CHLORIDE 0.9% IV 95 ML IV CONT (17:46)
--- NOTE | 2025-01-03 19:00 | P.PNIM_ITS ---
Progress Note: A&P Assessment and Plan (1) Hospice care: Code(s): Z51.5 - Encounter for palliative care Status: Acute Assessment and Plan: * Meets inpatient hospice criteria due to quit requiring continuous IV h ydromorphone at 0.25 milligrams/hour for control of pain and dyspnea * 01/01/2025 Discussed care and prognosis with spouse, daughter, and son-in-law bedside * 01/02/2025 Increased hydromorphone to 0.5 mg/hr and 1 mg q 2 hr prn, d/w family at bedside * 01/03/2025 Increased hydromorphone to 1 mg/hr and 1 mg q 2 hr prn, d/w family at bedside (2) Septic shock: Code(s): A41.9 - Sepsis, unspecified organism; R65.21 - Severe sepsis with septic shock Status: Acute (3) Pneumonia involving right lung: Code(s): J18.9 - Pneumonia, unspecified organism Status: Acute (4) UTI (urinary tract infection) due to urinary indwelling Schuster catheter: Code(s): T83.511A - Infection and inflammatory reaction due to indwelling urethral catheter, initial encounter; N39.0 - Urinary tract infection, site not specified Status: Acute (5) Diabetes: Code(s): E11.9 - Type 2 diabetes mellitus without complications Status: Acute (6) Acute renal failure: Code(s): N17.9 - Acute kidney failure, unspecified Status: Acute (7) Dehydration: Code(s): E86.0 - Dehydration Status: Acute (8) Acute hypernatremia: Code(s): E87.0 - Hyperosmolality and hypernatremia Status: Acute (9) Acidosis, lactic: Code(s): E87.20 - Acidosis, unspecified Status: Acute (10) Altered mental status, unspecified: Code(s): R41.82 - Altered mental status, unspecified Status: Acute (11) Dependence on supplemental oxygen: Code(s): Z99.81 - Dependence on supplemental oxygen Status: Acute Subjective Date/time seen: 01/03/25 19:00 Interval history: Was struggling to breath earlier today. Improved since drip increased. Review of Systems Review of Systems: ROS unobtainable: Yes unobtainable due to medical condition Exam Narrative: HEENT: Pharyngeal mucosa pink and intact NECK: No JVD CHEST: Mildly tachypneic, coarse breath sounds throughout with scattered coarse crackles HEART: NL S1/S2, regular, no murmur ABDOMEN: BS absent, soft, nontender, no mass, no bruits EXTREMITIES: No edema NEUROLOGIC: CN left facial droop MUSCULOSKELETAL: Left upper extremity contracture PSYCH: Unresponsive to verbal stimuli and minimally responsive to tactile stimuli Objective Data Vital Signs Vital Signs: Vital Signs - 24 hr 01/02/25 20:00 01/02/25 20:11 01/02/25 20:13 Temperature 103 F H Pulse Rate 109 H 109 H 109 H Respiratory Rate 30 H 30 H 30 H Blood Pressure 79/38 L Pulse Oximetry 89 L 89 L Oxygen Delivery Nasal Cannula Oxygen Flow Rate 2 Fraction of Inspired Oxygen 28 01/02/25 20:13 01/02/25 23:30 01/03/25 02:00 Temperature 99.1 F 98.6 F Pulse Rate 109 H Respiratory Rate 30 H Blood Pressure Pulse Oximetry Oxygen Delivery Oxygen Flow Rate Fraction of Inspired Oxygen 01/03/25 05:03 01/03/25 05:27 01/03/25 08:00 Temperature 102.7 F H Pulse Rate 102 H Respiratory Rate 25 H Blood Pressure 78/37 L Pulse Oximetry 84 L Oxygen Delivery Nasal Cannula Oxygen Flow Rate 2 Fraction of Inspired Oxygen 01/03/25 13:20 01/03/25 17:46 01/03/25 17:46 Temperature Pulse Rate 104 H 108 H 108 H Respiratory Rate 28 H 22 H 22 H Blood Pressure Pulse Oximetry Oxygen Delivery Oxygen Flow Rate Fraction of Inspired Oxygen Intake/Output Intake/Output: Intake & Output 12/31/24 01/01/25 01/02/25 01/03/25 23:59 23:59 23:59 23:59 Intake Total 253.1 26.0 Output Total 650 Balance -650 253.1 26.0 Meds/Results Medications: Active Medications Generic Name Dose Route Start Last Admin Trade Name Freq PRN Reason Stop Dose Admin Acetaminophen 650 mg 01/02/25 19:58 Acetaminophen 650 Mg Suppository RECTAL Q6H PRN fever over 101 or greater Artificial Tears 0 drop 01/01/25 17:25 Artificial Tears Ophth Soln 15 Ml Bottle EACH EYE Q12H PRN Dry Eye(s) Bisacodyl 10 mg 01/01/25 17:25 Bisacodyl 10 Mg Suppository RECTAL DAILY PRN Constipation Diazepam 5 mg 01/01/25 17:23 01/03/25 11:42 Diazepam Inj (*Crx) 10 Mg/2 Ml Syringe IV PUSH 5 mg Q6H PRN Administration RESTLESSNESS Glycopyrrolate 0.1 mg 01/01/25 17:25 01/02/25 19:35 Glycopyrrolate Inj (*Sp) 0.2 Mg/Ml Vial IV PUSH 0.1 mg Q4H PRN Administration secretions Hydromorphone HCl 1 mg 01/02/25 20:08 01/03/25 11:41 Hydromorphone Hcl Inj (*Crx) 1 Mg/Ml Syr IV PUSH 1 mg Q2H PRN Administration PAIN/DYSPNEA Hydromorphone HCl 50 mg/ 100 mls @ 2 mls/hr 01/01/25 17:25 01/03/25 17:46 Sodium Chloride IV CONT 1 mg/hr .Q24H NACHO 2 mls/hr 1 MG/HR Administration Prochlorperazine Edisylate 10 mg 01/01/25 17:25 Prochlorperazine Edisylate 10 Mg/2 Ml Vial IV PUSH Q6H PRN Nausea And Vomiting
[2025-01-04 10:00] VITALS: BP 67/27; PULSE 90; RESP 20; TEMP 36.9; O2SAT 99
[2025-01-04] MEDS: diazePAM INJ (*CRX) 10 MG/2 ML SYRINGE 5 MG IV PUSH ×2 (13:29→20:04)
--- NOTE | 2025-01-04 16:36 | P.PNIM_ITS ---
Progress Note: A&P Assessment and Plan (1) Hospice care: Code(s): Z51.5 - Encounter for palliative care Status: Acute Assessment and Plan: * Meets inpatient hospice criteria due to quit requiring continuous IV h ydromorphone at 0.25 milligrams/hour for control of pain and dyspnea * 01/01/2025 Discussed care and prognosis with spouse, daughter, and son-in-law bedside * 01/02/2025 Increased hydromorphone to 0.5 mg/hr and 1 mg q 2 hr prn, d/w family at bedside * 01/03/2025 Increased hydromorphone to 1 mg/hr and 1 mg q 2 hr prn, d/w family at bedside * 01/04/2025 Continue current regimen, too unstable to transfer due to hypotension, hypoxia, frailty (2) Septic shock: Code(s): A41.9 - Sepsis, unspecified organism; R65.21 - Severe sepsis with septic shock Status: Acute (3) Pneumonia involving right lung: Code(s): J18.9 - Pneumonia, unspecified organism Status: Acute (4) UTI (urinary tract infection) due to urinary indwelling Schuster catheter: Code(s): T83.511A - Infection and inflammatory reaction due to indwelling urethral catheter, initial encounter; N39.0 - Urinary tract infection, site not specified Status: Acute (5) Diabetes: Code(s): E11.9 - Type 2 diabetes mellitus without complications Status: Acute (6) Acute renal failure: Code(s): N17.9 - Acute kidney failure, unspecified Status: Acute (7) Dehydration: Code(s): E86.0 - Dehydration Status: Acute (8) Acute hypernatremia: Code(s): E87.0 - Hyperosmolality and hypernatremia Status: Acute (9) Acidosis, lactic: Code(s): E87.20 - Acidosis, unspecified Status: Acute (10) Altered mental status, unspecified: Code(s): R41.82 - Altered mental status, unspecified Status: Acute (11) Dependence on supplemental oxygen: Code(s): Z99.81 - Dependence on supplemental oxygen Status: Acute Subjective Date/time seen: 01/04/25 16:36 Interval history: Remained comfortable today. Review of Systems Review of Systems: ROS unobtainable: Yes unobtainable due to medical condition Exam Narrative: HEENT: Pharyngeal mucosa pink and intact NECK: No JVD CHEST: Mildly tachypneic, coarse breath sounds throughout with scattered coarse crackles HEART: NL S1/S2, regular, no murmur ABDOMEN: BS absent, soft, nontender, no mass, no bruits EXTREMITIES: No edema NEUROLOGIC: CN left facial droop MUSCULOSKELETAL: Left upper extremity contracture PSYCH: Unresponsive to verbal stimuli and minimally responsive to tactile stimuli Objective Data Vital Signs Vital Signs: Vital Signs - 24 hr 01/03/25 17:46 01/03/25 17:46 01/04/25 10:00 Pulse Rate 108 H 108 H Respiratory Rate 22 H 22 H Pulse Oximetry 99 Oxygen Delivery Nasal Cannula Oxygen Flow Rate 2 01/04/25 11:33 Pulse Rate Respiratory Rate Pulse Oximetry Oxygen Delivery Nasal Cannula Oxygen Flow Rate 2 Intake/Output Intake/Output: Intake & Output 01/01/25 01/02/25 01/03/25 01/04/25 23:59 23:59 23:59 23:59 Intake Total 253.1 26.0 Output Total 650 Balance -650 253.1 26.0 Meds/Results Medications: Active Medications Generic Name Dose Route Start Last Admin Trade Name Freq PRN Reason Stop Dose Admin Acetaminophen 650 mg 01/02/25 19:58 Acetaminophen 650 Mg Suppository RECTAL Q6H PRN fever over 101 or greater Artificial Tears 0 drop 01/01/25 17:25 Artificial Tears Ophth Soln 15 Ml Bottle EACH EYE Q12H PRN Dry Eye(s) Bisacodyl 10 mg 01/01/25 17:25 Bisacodyl 10 Mg Suppository RECTAL DAILY PRN Constipation Diazepam 5 mg 01/01/25 17:23 01/04/25 13:29 Diazepam Inj (*Crx) 10 Mg/2 Ml Syringe IV PUSH 5 mg Q6H PRN Administration RESTLESSNESS Glycopyrrolate 0.1 mg 01/01/25 17:25 01/02/25 19:35 Glycopyrrolate Inj (*Sp) 0.2 Mg/Ml Vial IV PUSH 0.1 mg Q4H PRN Administration secretions Hydromorphone HCl 1 mg 01/02/25 20:08 01/03/25 11:41 Hydromorphone Hcl Inj (*Crx) 1 Mg/Ml Syr IV PUSH 1 mg Q2H PRN Administration PAIN/DYSPNEA Hydromorphone HCl 50 mg/ 100 mls @ 2 mls/hr 01/01/25 17:25 01/03/25 17:46 Sodium Chloride IV CONT 1 mg/hr .Q24H NACHO 2 mls/hr 1 MG/HR Administration Prochlorperazine Edisylate 10 mg 01/01/25 17:25 Prochlorperazine Edisylate 10 Mg/2 Ml Vial IV PUSH Q6H PRN Nausea And Vomiting
[2025-01-04 17:17] VITALS: PULSE 108; RESP 24
[2025-01-04] MEDS: HYDROmorphone HCL/PF (*CRX) 50 MG in SODIUM CHLORIDE 0.9% IV 95 ML IV CONT (17:17)
[2025-01-04] MEDS: GLYCOPYRROLATE INJ (*SP) 0.2 MG/ML VIAL 0.1 MG IV PUSH (21:35)
[2025-01-04 23:30] VITALS: PULSE 0; RESP 0
--- NOTE | 2025-01-08 16:32 | P.DN_ITS ---
Discharge Summary Date and Time Date of : 01/04/25 Time of : 23:30 Provider Pronounced By: 2 RNs Name of First RN That Pronounced: Lashae Lal Name of Second RN That Pronounced: Honey Juárez Probable Cause of Probable Cause of : Septic shock due to pneumonia Summary Hospital Course: Admitted inpatient hospice service for symptom management. Medications were titrated to comfort. Mr. Soto peacefully. Additional Data Confirmation of as documented by pronouncing clinician: Pupillary Reflex, Palpable Pulses, Response to Stimuli, Heart Tones and Breath Sounds Name of Provider Notified: Neto Pat Time Provider Notified: 00:00 Provider Requests Autopsy: No Family Requests Autopsy: No Administrative Office Assistant Notified: Yes Date [facility] Notified of : 01/04/25 Time [facility] Notified of : 00:05
== END 2025-01-05 03:20 | disposition expired | DRG 951 ==
PROVIDERS: Admitting Provider Internal Medicine; Visit Provider Internal Medicine
DX: Z51.5 Encounter for palliative care (principal); A41.9 Sepsis, unspecified organism; J18.9 Pneumonia, unspecified organism; R65.21 Severe sepsis with septic shock; T83.511A Infection and inflammatory reaction due to indwelling urethral catheter, initial encounter; N17.9 Acute kidney failure, unspecified
CPT/HCPCS: A9270; J1171; J1596; J3360